=== PATIENT | male | born 1940 | race Caucasian/White ===

== ENCOUNTER 2016-12-13 23:17 | Inpatient (IN) | payer OTHER ==
[2016-12-13 23:33] VITALS: BMI 35.7
--- NOTE | 2016-12-13 23:51 | PDOC ---
History of Present Illness - General History Source: Family, Spouse () Exam Limitations: Dementia - History of Present Illness Initial Comments: 12/14/16 00:16 The patient is a 76 year old male with significant past medical history of dementia, CAD, hyperlipidemia, hypertension, chronic kidney disease, diabetes, asthma who presents to the ED BIBA from home with worsening AMS. As per family, at bedside, patient is confused and AMS at baseline. However, over the past 24 hours, they noted patients AMS has worsened. also noted frequent urination. According to the family, patient is administered tylenol every 4 hours for pain, but note that the patient felt warm at home. Patients temperature was checked here in the ED and patient was found to have a rectal temp of 100.2. Allergies: NKDA Social History: No alcohol, tobacco, or drug use reported. Past Surgical History: CABG, ORIF right hip PCP: Dr. Prema Fiore Cardio: Dr. Shanti Paul Nephro: Dr. Dee Dee Tavarez <Sharon Chávez - Last Filed: 12/14/16 04:34> <Lara Del Angel - Last Filed: 12/14/16 06:22> - General Chief Complaint: SIRS, Suspected/Possible Stated Complaint: FEVER Time Seen by Provider: 12/13/16 23:48 Past History <Sharon Chávez - Last Filed: 12/14/16 04:34> - Past Medical History Anemia: No Asthma: Yes Cancer: No Cardiac Disorders: Yes (cabg) CVA: No COPD: No CHF: No Dementia: No Diabetes: Yes GI Disorders: No Disorders: No HTN: Yes Hypercholesterolemia: Yes Liver Disease: No Suicide Attempt (Hx): No Seizures: No Thyroid Disease: No - Surgical History Abdominal Surgery: No Appendectomy: No Cardiac Surgery: Yes (') Cholecystectomy: No Lung Surgery: No Neurologic Surgery: No Orthopedic Surgery: No (rt hip orif) - Immunization History Immunization Up to Date: Yes - Psycho/Social/Smoking Cessation Hx Anxiety: No Suicidal Ideation: No Smoking Status: No Smoking History: Never smoked Have you smoked in the past 12 months: No Number of Cigarettes Smoked Daily: 0 If you are a former smoker, when did you quit?: '96 Hx Alcohol Use: No Drug/Substance Use Hx: No Substance Use Type: None Hx Substance Use Treatment: No <Lara Del Angel - Last Filed: 12/14/16 06:22> - Past Medical History Allergies/Adverse Reactions: Allergies Allergy/AdvReac Type Severity Reaction Status Date / Time No Known Allergies Allergy Verified 12/13/16 23:28 Home Medications: Ambulatory Orders Clopidogrel Bisulfate [Plavix -] 75 mg PO DAILY 02/26/12 Nebivolol HCl [Bystolic] 5 mg PO HS 06/23/14 Tamsulosin HCl 0.4 mg PO DAILY 06/23/14 Aspirin [ASA -] 81 mg PO DAILY 12/14/16 Atorvastatin Ca [Lipitor] 80 mg PO HS 12/14/16 Bimatoprost [Lumigan] 1 drop IO DAILY 12/14/16 Cyanocobalamin [Vitamin B12 -] 1,000 mcg PO DAILY 12/14/16 Dorzolamide HCl [Trusopt 2% -] 1 drop OU TID 12/14/16 Ezetimibe [Zetia] 10 mg PO DAILY 12/14/16 Furosemide [Lasix] 80 mg PO DAILY 12/14/16 Review of Systems - Review of Systems Able to Perform ROS?: No Comments:: 12/14/16 00:16 Unable to obtain as patient has dementia <Sharon Chávez - Last Filed: 12/14/16 04:34> *Physical Exam - Vital Signs Last Vital Signs Temp Pulse Resp BP Pulse Ox 98.1 F 85 18 135/65 92 L 12/13/16 23:28 12/13/16 23:28 12/13/16 23:28 12/13/16 23:28 12/13/16 23:28 - Physical Exam Comments: 12/14/16 01:51 GENERAL: Pt is febrile. Well developed, well nourished. No acute distress. HEENT: Normocephalic, atraumatic. PERRLA, EOMI. Right eye cloudy which is chronic per . No conjunctival pallor. Sclera are non-icteric. Moist mucous membranes. Oropharynx is clear. NECK: Supple. Full ROM. No JVD. Carotid pulses 2+ and symmetric, without bruits. No thyromegaly. No lymphadenopathy. CARDIOVASCULAR: Regular rate and rhythm. No murmurs, rubs, or gallops. Distal pulses are 2+ and symmetric. PULMONARY: No evidence of respiratory distress. Lungs clear to auscultation bilaterally. No wheezing, rales or rhonchi. ABDOMINAL: Obese. Non-tender. Non-distended. No rebound or guarding. No organomegaly. Normoactive bowel sounds. MUSCULOSKELETAL Normal range of motion at all joints. No bony deformities or tenderness. No CVA tenderness. EXTREMITIES: No cyanosis. No clubbing. No edema. No calf tenderness. SKIN: Warm and dry. Normal capillary refill. No rashes. No jaundice. NEUROLOGICAL: Confused and somnolent, but arousable. Unable to answer questions. Moving all extremities. PSYCHIATRIC: Cooperative. Good eye contact. Appropriate mood and affect. <Sharon Chávez - Last Filed: 12/14/16 04:34> - Vital Signs Last Vital Signs Temp Pulse Resp BP Pulse Ox 98.1 F 85 18 135/65 92 L 12/13/16 23:28 12/13/16 23:28 12/13/16 23:28 12/13/16 23:28 12/13/16 23:28 <Lara Del Angel - Last Filed: 12/14/16 06:22> Heart Score/ECG Review - ECG Impressions Comment:: 12/14/16 03:59 NSR @84bpm Nonspecific ST abnormality Abnormal ECG <Sharon Chávez - Last Filed: 12/14/16 04:34> ED Treatment Course - LABORATORY CBC & Chemistry Diagram: 12/14/16 00:01 12/14/16 03:40 - RADIOLOGY Radiograph Interpretation: 12/14/16 04:32 EXAM: X-RAY CHEST Reviewed by Imaging arson and bomb investigator: Exam slightly motion degraded and rotated since . No definite lung consolidation or pleural effusions. Cardiomegaly and/or pericardial effusion. Median sternotomy. <Sharon Chávez - Last Filed: 12/14/16 04:34> - LABORATORY CBC & Chemistry Diagram: 12/14/16 00:01 12/14/16 03:40 <Lara Del Angel - Last Filed: 12/14/16 06:22> Medical Decision Making - Medical Decision Making 12/14/16 01:33 Pt comes with worsening mental status. He also has a fever. Family takes care of him at home. Pt has a baseline dementia. 12/14/16 03:02 Pt's urine is clear. Only glucose and ketones. 12/14/16 06:17 Pt has no UTI on straight cath specimen even though his notes that he has been urinating frequently. Pt has RLL haziness on cxr. Pt will be treated with levaquin. He received tylenol ofirmev IV. We treated him with zosyn. 12/14/16 06:21 Pt was admitted to hospitalist and they hydrated him. <Lara Del Angel - Last Filed: 12/14/16 06:22> *DC/Admit/Observation/Transfer - Attestations Scribe Attestion: 12/14/16 00:16 Documentation prepared by Sharon Chávez, acting as medical claims processor for Lara Del Angel MD <Sharon Chávez - Last Filed: 12/14/16 04:34> - Discharge Dispostion Admit: Yes <Lara Del Angel - Last Filed: 12/14/16 06:22> Diagnosis at time of Disposition: Sepsis, Type 2 diabetes mellitus, Pneumonia - Referrals
[2016-12-14] MEDS ORDERED: ACETAMINOPHEN 1000 MG/100 ML VIAL (NON FORMULARY) IVPB ONE (00:03)
[2016-12-14 00:26] LABS: BASOPHIL 0.5 % (0-2.0); EOSINOPHIL 0.1 % (0-4.5); MCH 29.8 pg (25.7-33.7); MCHC 32.7 g/dl (32.0-35.9); MEAN CELL VOLUME 91.1 fl (80-96); MEAN PLT VOLUME 10.6 fl (7.5-11.1); NEUTROPHILS 83.2 % (42.8-82.8); PLATELET COUNT 102 K/MM3 (134-434); RDW 13.4 % (11.9-15.9); WHITE BLOOD COUNT 14.5 K/mm3 (4.0-10.0)
[2016-12-14 00:36] LABS: INR 1.44 (0.82-1.09)
[2016-12-14] MEDS ORDERED: ACETAMINOPHEN INJECTION 100 ML IVPB ONE (00:44)
[2016-12-14 01:10] LABS: ALBUMIN 3.9 g/dl (3.4-5.0); BILIRUBIN,TOTAL 0.8 mg/dL (0.2-1.0); CALCIUM 9.7 mg/dL (8.5-10.1); CREATININE 2.2 mg/dL (0.7-1.3); TOT PROT 6.9 g/dl (6.4-8.2)
[2016-12-14 01:12] LABS: TROPONIN I 0.04 ng/ml (0.00-0.05)
[2016-12-14] MEDS ORDERED: INSULIN REGULAR HUMAN 100 UNITS/ML *VIAL IVPUSH ONE (01:22)
[2016-12-14] MEDS ORDERED: PIPERACILLIN/TAZOB 3.375 GM 3.375 GM in DEXTROSE 5%-WATER - 50 ML IVPB ONE (01:28)
[2016-12-14] MEDS ORDERED: PIPERACILLIN/TAZOB 3.375 GM 50 ML IVPB ONE (01:43)
[2016-12-14] MEDS ORDERED: INSULIN REGULAR HUMAN 100 UNITS/ML *VIAL ONE ×3 (01:44→09:02)
[2016-12-14 02:43] LABS: URINE APPEARANCE CLEAR; URINE BILIRUBIN NEGATIVE (NEGATIVE); URINE BLOOD NEGATIVE (NEGATIVE); URINE COLOR STRAW; URINE GLUCOSE (UA) 3+ (NEGATIVE); URINE KETONE 1+ (NEGATIVE); URINE LEUK ESTERASE NEGATIVE (NEGATIVE); URINE NITRITE NEGATIVE (NEGATIVE); URINE PROTEIN NEGATIVE (NEGATIVE); URINE UROBILINOGEN NEGATIVE E.U./dl (0.2-1.0)
--- NOTE | 2016-12-14 02:47 | PN ---
<Escobar Cornell - Last Filed: 12/14/16 02:47> Teaching Attending Note Name of Resident: Chen Carrizales ATTENDING PHYSICIAN STATEMENT I saw and evaluated the patient. I reviewed the resident's note and discussed the case with the resident. I agree with the resident's findings and plan as documented. SUBJECTIVE: OBJECTIVE: ASSESSMENT AND PLAN: <Rick Sánchez - Last Filed: 12/14/16 04:42> Teaching Attending Note ATTENDING PHYSICIAN STATEMENT I saw and evaluated the patient. I reviewed the resident's note and discussed the case with the resident. I agree with the resident's findings and plan as documented. SUBJECTIVE: The patient is a 76 year old male with significant past medical history of dementia, CAD, hyperlipidemia, hypertension, chronic kidney disease, type 2 diabetes, and asthma who presents to the ED with worsening AMS. History obtained from family at bedside. As per the patient family, he is alert and oriented at baseline. The patients also notes a productive cough with white sputum for one week. The patient denies fever, chills, nausea, vomiting, chest pain, and shortness of breath. As per family, patient has received a flu shot. OBJECTIVE: Vital Signs: Last Vital Signs Temp Pulse Resp BP Pulse Ox 100.2 F H 85 18 135/65 92 L 12/14/16 00:50 12/13/16 23:28 12/13/16 23:28 12/13/16 23:28 12/13/16 23:28 Physical Exam: GEN: NAD. Elderly male A&O x1 HEENT: NCAT, PERRL CARD: RRR, S1 S2 RESP: Course bilateral crackles at bases of lungs ABD: NT, BWS x4 EXT: - Left upper arm insulin pump. Chronic venous stasis of bilateral lower extremities Labs: CBCD WBC 14.5 K/mm3 (4.0-10.0) H D 12/14/16 00:01 RBC 4.27 M/mm3 (4.00-5.60) D 12/14/16 00:01 Hgb 12.7 GM/dL (11.7-16.9) D 12/14/16 00:01 Hct 38.9 % (35.4-49) D 12/14/16 00:01 MCV 91.1 fl (80-96) 12/14/16 00:01 MCHC 32.7 g/dl (32.0-35.9) 12/14/16 00:01 RDW 13.4 % (11.9-15.9) 12/14/16 00:01 Plt Count 102 K/MM3 (134-434) L D 12/14/16 00:01 MPV 10.6 fl (7.5-11.1) D 12/14/16 00:01 CMP Sodium 136 mmol/L (136-145) 12/14/16 00:01 Potassium 4.7 mmol/L (3.5-5.1) 12/14/16 00:01 Chloride 94 mmol/L (98-107) L D 12/14/16 00:01 Carbon Dioxide 26 mmol/L (21-32) 12/14/16 00:01 Anion Gap 16 (8-16) 12/14/16 00:01 BUN 56 mg/dL (7-18) H D 12/14/16 00:01 Creatinine 2.2 mg/dL (0.7-1.3) H D 12/14/16 00:01 Creat Clearance w eGFR 29.25 (>60) 12/14/16 00:01 Calcium 9.7 mg/dL (8.5-10.1) 12/14/16 00:01 Total Bilirubin 0.8 mg/dL (0.2-1.0) D 12/14/16 00:01 AST 15 U/L (15-37) D 12/14/16 00:01 ALT 22 U/L (12-78) 12/14/16 00:01 Alkaline Phosphatase 134 U/L (45-117) H D 12/14/16 00:01 Total Protein 6.9 g/dl (6.4-8.2) 12/14/16 00:01 Albumin 3.9 g/dl (3.4-5.0) 12/14/16 00:01 Imaging: ASSESSMENT AND PLAN: Patient is a 76 year old male with significant past medical history of dementia , CAD, hyperlipidemia, hypertension, chronic kidney disease, type 2 diabetes, and asthma who presents to the ED with AMS and frequent urination being admitted for sepsis secondary to pneumonia. 1.Sepsis -Most likely secondary to community acquired pneumonia -Vancomycin and Zosyn received in ED -Repeat lactic acid -Foley culture -Stat flu swab -Dalton IVF -Sputum culture -Urine legionella/pneumococcal 2. Uncontrolled diabetes -s/p insulin regular received in ED -Continue with Levemir rapid acting -Finger sticks 3. Acute on chronic renal failure -Dalton hydration -Urine lytes -Base creatinine around 2 4. CHF -Continue home meds -Hold lasix as patient is dehydrated -Sputum culture 5. Thrombocytopenia -most likely due to infection 6. Asthma Not currently in exacerbation Nebulizer as needed 7. HTN Continue beta idris and flomax Admit to med surg. Documentation prepared by Rick Sánchez, acting as medical services assistant for Dr. Aneta MD.
--- NOTE | 2016-12-14 02:57 | HP ---
CHIEF COMPLAINT: Altered Mental Status PCP: Dr. Prema Fiore HISTORY OF PRESENT ILLNESS: Patient poor historian and unable to obtain history due to clinical condition. All information obtained from and records Patient is a 76 year old male with a significant PMHx of CAD, CHF, HLD, HTN, DM II (noncompliant and uncontrolled), CKD, asthma, and Dementia who was brought to the ED by his and son for worsening altered mental status for the last 2 -3 days. At baseline, patient is awake, alert, and oriented. She does report that he has worsening vision due to his uncontrolled diabetes, which worsened his gait in the last month. Patient's also reports a productive cough with white sputum for the last 2-3 days associated with fever and increasing urinary frequency. According to , she has been administering Tylenol every four hours for the fever. In the ED patient was found to have a rectal temperature of 100.2. However, she denies any chills, nausea, vomiting, chest pain, palpitations, shortness of breath. ER course was notable for: (1) Chest x-ray (2) Vancomycin and Zosyn (3) 10 Units of insulin Recent Travel: Denies PAST MEDICAL HISTORY: CAD, HLD, HTN, DM II (noncompliant and uncontrolled), CKD , asthma, and Dementia PAST SURGICAL HISTORY: CABG, ORIF of right hip Social History: Smoking: Denies Alcohol: Denies Drugs: Denies Family History: Denies Allergies: No Known Allergies Allergy (Verified 12/13/16 23:28) HOME MEDICATIONS: Medication Instructions Recorded Clopidogrel Bisulfate [Plavix -] 75 mg PO DAILY 02/26/12 Albuterol Sulfate Inhaler - 2 inh IH Q4H PRN #0 inh 02/29/12 [Ventolin HFA Inhaler -] Atorvastatin Ca [Lipitor] 40 mg PO HS #0 tab 02/29/12 Dorzolamide HCl [Trusopt 2% -] 1 drop OU BID #0 drops 02/29/12 Allopurinol [Zyloprim -] 100 mg PO DAILY 06/23/14 Docusate Sodium [Colace -] 300 mg PO BID 06/23/14 Nebivolol HCl [Bystolic] 5 mg PO HS 06/23/14 Spironolactone 50 mg PO DAILY 06/23/14 Tamsulosin HCl 0.4 mg PO DAILY 06/23/14 Albuterol 0.083% Nebulizer Elyse 1 neb NEB QID 09/29/15 [Ventolin 0.083% Nebulizer Soln -] Hydralazine HCl [Apresoline -] 10 mg PO TID tablet 03/17/16 Salmeterol/Fluticasone [Advair 1 puff IH BID #0 inhaler 03/17/16 100Mcg/50Mcg -] Albuterol Sulfate Inhaler - 2 inh IH Q4H PRN #1 inh 03/23/16 [Ventolin HFA Inhaler -] Hydralazine HCl [Apresoline -] 10 mg PO TID #90 tablet 03/23/16 Insulin Detemir [Levemir Flextouch] 22 unit SQ BID #5 syringe 03/23/16 Salmeterol/Fluticasone [Advair 1 puff IH BID #1 inhaler 03/23/16 100Mcg/50Mcg -] Wheel Chair 0 unit AD ASDIR #1 03/23/16 REVIEW OF SYSTEMS: Obtained from patient's CONSTITUTIONAL: Present: fever Absent: chills, diaphoresis, generalized weakness, malaise, loss of appetite, weight change HEENT: Present: rhinorrhea, nasal congestion, visual changes Absent: throat pain, throat swelling, difficulty swallowing, mouth swelling, ear pain, eye pain CARDIOVASCULAR: Absent: chest pain, syncope, palpitations, irregular heart rate, lightheadedness , peripheral edema RESPIRATORY: Present: cough Absent: shortness of breath, dyspnea with exertion, orthopnea, wheezing, stridor , hemoptysis GASTROINTESTINAL: Absent: abdominal pain, abdominal distension, nausea, vomiting, diarrhea, constipation, melena, hematochezia GENITOURINARY: Present: frequency Absent: dysuria, urgency, hesitancy, hematuria, flank pain, genital pain MUSCULOSKELETAL: Absent: myalgia, arthralgia, joint swelling, back pain, neck pain SKIN: Absent: rash, itching, pallor HEMATOLOGIC/IMMUNOLOGIC: Absent: easy bleeding, easy bruising, lymphadenopathy, frequent infections ENDOCRINE: Absent: unexplained weight gain, unexplained weight loss, heat intolerance, cold intolerance NEUROLOGIC: Present: mental status changes Absent: headache, focal weakness or paresthesias, dizziness, unsteady gait, seizure, bladder or bowel incontinence PSYCHIATRIC: Absent: anxiety, depression, suicidal or homicidal ideation, hallucinations. PHYSICAL EXAMINATION Vital Signs - 24 hr 12/13/16 12/14/16 23:28 00:50 Temperature 98.1 F 100.2 F H Pulse Rate 85 Respiratory 18 Rate Blood Pressure 135/65 O2 Sat by Pulse 92 L Oximetry (%) GENERAL: Awake, lethargic, disoriented HEAD: Normal with no signs of trauma. EYES: Sclera anicteric, bilateral conjunctivitis, No lid lag. EARS, NOSE, THROAT: Ears normal, nares patent, oropharynx clear without exudates. Moist mucous membranes. NECK: Normal range of motion, supple without lymphadenopathy, JVD, or masses. LUNGS: Bilateral crackles throughout lung bases No accessory muscle use. HEART: Regular rate and rhythm, normal S1 and S2 without murmur, rub or gallop. ABDOMEN: Soft, nontender, not distended, normoactive bowel sounds, no guarding, no rebound, no masses. No hepatomegaly or splenomegaly. MUSCULOSKELETAL: Normal range of motion at all joints. No bony deformities or tenderness. No CVA tenderness. UPPER EXTREMITIES: Left upper arm insulin pump No peripheral edema. LOWER EXTREMITIES: Chronic venous stasis of bilateral lower extremities. No peripheral edema. NEUROLOGICAL: Disoriented and Agitated Laboratory Results - last 24 hr 12/14/16 12/14/16 12/14/16 00:01 00:01 00:01 WBC 14.5 H D RBC 4.27 D Hgb 12.7 D Hct 38.9 D MCV 91.1 MCHC 32.7 RDW 13.4 Plt Count 102 L D MPV 10.6 D Neutrophils % 83.2 H D Lymphocytes % 4.8 L D Monocytes % 11.4 H Eosinophils % 0.1 D Basophils % 0.5 D INR 1.44 H Sodium 136 Potassium 4.7 Chloride 94 L D Carbon Dioxide 26 Anion Gap 16 BUN 56 H D Creatinine 2.2 H D Creat Clearance w eGFR 29.25 Random Glucose 595 H* D Lactic Acid Calcium 9.7 Total Bilirubin 0.8 D AST 15 D ALT 22 Alkaline Phosphatase 134 H D Creatine Kinase 128 Troponin I 0.04 D Total Protein 6.9 Albumin 3.9 Urine Color Urine Appearance Urine pH Ur Specific [place] Urine Protein Urine Glucose (UA) Urine Ketones Urine Blood Urine Nitrite Urine Bilirubin Urine Urobilinogen Ur Leukocyte Esterase 12/14/16 12/14/16 00:01 02:35 WBC RBC Hgb Hct MCV MCHC RDW Plt Count MPV Neutrophils % Lymphocytes % Monocytes % Eosinophils % Basophils % INR Sodium Potassium Chloride Carbon Dioxide Anion Gap BUN Creatinine Creat Clearance w eGFR Random Glucose Lactic Acid 2.606 H* Calcium Total Bilirubin AST ALT Alkaline Phosphatase Creatine Kinase Troponin I Total Protein Albumin Urine Color Straw Urine Appearance Clear Urine pH 5.0 Ur Specific [place] 1.016 Urine Protein Negative Urine Glucose (UA) 3+ H Urine Ketones 1+ H Urine Blood Negative Urine Nitrite Negative Urine Bilirubin Negative Urine Urobilinogen Negative Ur Leukocyte Esterase Negative ASSESSMENT/PLAN: Patient is a 76 year old male with a PMHx of CAD, CHF, HLD, HTN, DM II ( noncompliant and uncontrolled), CKD, asthma, BPH and Dementia who presents to the ED for altered mental status that worsened in the last two days associated with a productive cough, fever, and urinary frequency. Patient admitted for further monitoring and management. Sepsis Likely Secondary to Community Acquired Pneumonia -Chest X-ray ordered that revealed a possible right lobe infiltrate -Repeat Lactic sent -Zosyn and Vancomycin given -Blood and urine cultures ordered -Sputum cultures sent -Urine Legionella/pneumococcal ordered -Flu Swab ordered -IV Tylenol 1000mg ordered -Light hydration with IV NS half bolus -Duo-Neb ordered -Speech and Swallow consult placed Hyperglycemia -Likely from uncontrolled DM II -Glucose >500 -Anion Gap 16. Will repeat -10 units of regular insulin given in ED -Insulin Sliding scale -BGM Q4H -Repeat BMP sent to monitor Anion Gap -Continue to Trend BMP KIKI on CKD -Creatinine 2.2 -IV NS half a bolus -Urine electrolytes ordered -Continue to trend BMP Thrombocytopenia -Likely from current infection -Continue to trend CBC daily CHF -No acute exacerbation -Will hold Lasix due to patients creatinine -Continue Aspirin 81mg -Continue Plavix 75mg HTN -Continue Bystolic 5mg daily -Continue to monitor BP HLD -Continue Zetia 10mg -Continue Lipitor 80mg Asthma -Currently has no exacerbation -DuoNeb 1 amp ordered BPH -Continue Tamsulosin 0.4mg F/E/N -IVF with NS half bolus given -Hyperglycemia -NPO until speech and swallow evaluation Prophylaxis -SCD's for DVT -No GI prophylaxis Disposition -Full code -Will remain inpatient overnight. Visit type - Emergency Visit Emergency Visit: Yes ED Registration Date: 12/14/16 Care time: The patient presented to the Emergency Department on the above date and was hospitalized for further evaluation of their emergent condition. - New Patient This patient is new to me today: Yes Date on this admission: 12/15/16 - Critical Care Critical Care patient: No
[2016-12-14] MEDS ORDERED: SODIUM CHLORIDE 500 ML IV STA (03:11)
[2016-12-14] MEDS ORDERED: ACETAMINOPHEN 325 MG TABLET (FP) PO PRN (03:28)
[2016-12-14] MEDS ORDERED: ALBUTEROL SO4 2.5/IPRATROPIUM 0.5 INH SOL 3 ML VIAL.NEB. NEB ONE ×2 (03:41→03:54)
[2016-12-14 04:10] LABS: CALCIUM 9.6 mg/dL (8.5-10.1); CREATININE 2.3 mg/dL (0.7-1.3)
[2016-12-14] MEDS ORDERED: INSULIN (NOVOLOG) ASPART 100 UNITS/ML 10ML VIAL SQ ONE (04:27)
[2016-12-14] MEDS: DORZOLAMIDE 2% HCL OPHTHALMIC SOLUTION 10 ML BOTTLE OU SCH ×3 (06:18→22:16)
[2016-12-14] MEDS ORDERED: INSULIN SLIDING SCALE (NOVOLOG) 1 VIAL SQ SCH (07:00)
[2016-12-14 07:44] LABS: BASOPHIL 0.4 % (0-2.0); MCH 30.5 pg (25.7-33.7); MCHC 33.4 g/dl (32.0-35.9); MEAN CELL VOLUME 91.4 fl (80-96); MEAN PLT VOLUME 10.7 fl (7.5-11.1); NEUTROPHILS 83.2 % (42.8-82.8); PLATELET COUNT 91 K/MM3 (134-434); RDW 13.5 % (11.9-15.9); WHITE BLOOD COUNT 15.5 K/mm3 (4.0-10.0)
[2016-12-14 08:08] LABS: CALCIUM 9.9 mg/dL (8.5-10.1)
[2016-12-14 08:11] LABS: BILIRUBIN,TOTAL 0.8 mg/dL (0.2-1.0); CREATININE 2.1 mg/dL (0.7-1.3); TOT PROT 7.1 g/dl (6.4-8.2)
[2016-12-14] MEDS ORDERED: AZITHROMYCIN IVPB 500 MG in DEXTROSE 5%-WATER - 250 ML IVPB ONE (08:22)
[2016-12-14] MEDS ORDERED: ALBUTEROL SO4 0.083% IH SOL 2.5 MG/3 ML VIAL.NEB. NEB PRN (08:23)
[2016-12-14] MEDS: INSULIN SLIDING SCALE (NOVOLOG) 1 VIAL SQ SCH ×5 (08:59→22:02)
[2016-12-14] MEDS ORDERED: TAMSULOSIN HCL 0.4 MG CAP.ER.24H (FP) ONE (09:01)
[2016-12-14] MEDS ORDERED: AZITHROMYCIN IVPB 250 ML IVPB ONE (09:01)
[2016-12-14] MEDS: TAMSULOSIN HCL 0.4 MG CAP.ER.24H (FP) PO SCH (09:04)
[2016-12-14] MEDS: SODIUM CHLORIDE 1,000 ML IV SCH ×2 (09:04→17:18)
--- NOTE | 2016-12-14 09:46 | CONSULT ---
Admitting History and Physical - Primary Care Physician PCP: Pako Alex - Admission History of Present Illness: Per EMR: "Patient poor historian and unable to obtain history due to clinical condition. All information obtained from and records Patient is a 76 year old male with a significant PMHx of CAD, CHF, HLD, HTN, DM II (noncompliant and uncontrolled), CKD, asthma, and Dementia who was brought to the ED by his and son for worsening altered mental status for the last 2 -3 days. At baseline, patient is awake, alert, and oriented. She does report that he has worsening vision due to his uncontrolled diabetes, which worsened his gait in the last month. Patient's also reports a productive cough with white sputum for the last 2-3 days associated with fever and increasing urinary frequency. According to , she has been administering Tylenol every four hours for the fever. In the ED patient was found to have a rectal temperature of 100.2. However, she denies any chills, nausea, vomiting, chest pain, palpitations, shortness of breath. ER course was notable for: (1) Chest x-ray (2) Vancomycin and Zosyn (3) 10 Units of insulin " Snoring sounds while sleeping and when alert and reclined. Frequent cough. History Source: Significant Other (limited.), Medical Record Limitations to Obtaining History: Clinical Condition, Language Barrier - Past Medical History Cardiovascular: Yes: CAD, HTN, Hyperlipdemia Pulmonary: Yes: Asthma, COPD - Past Surgical History Past Surgical History: Yes: CABG - Smoking History Smoking history: Never smoked Have you smoked in the past 12 months: No Aproximately how many cigarettes per day: 0 If you are a former smoker, when did you quit?: '96 - Alcohol/Substance Use Hx Alcohol Use: No - Social History History of Recent Travel: No History - Admission Reason For Visit: SEPSIS PNEUMONIA TYPE 2 DIABETES MELLITUS - Diagnostics X-ray: Report Reviewed - General Mental Status: Awake and Alert, Able to Follow Commands, Intermittently Confused (difficult to assess due to language barrier and limited ability of pt' s to translate/assist.) Attention: Distractible (eyes closed throughout assessment) Ability to Follow Directions: Fair - Hearing Hearing: Functional Speech Evaluation - Communication Primary Language: ROLO Communication: Yes: Simple Responses - Speech Characteristics Voice Loudness: Normal Voice Pitch: Yes: Normal Voice Phonatory-based Quality: Yes: Dysphonia - Swallow Evaluation/Bedside Assessment Current Nutritional Intake: NPO Dentition: Yes: Missing Teeth Facial Symmetry at Rest: Facial Droop Right (possibly at rest? Limited cooperation with examination) Lingual Movement: Symmetric Labial Seal: WFL Oral Prep Time: WFL A-P Transit: WFL Pocketing: None Coughing/Throat Clear: No Change in Voice: No Recommendations - Speech Evaluation, Impression/Plan Impression: Eyes closed/language barrier/coughing throughout assessment. Swallow seems brisk. - Dysphagia Impressions/Plan Dysphagia Impressions: Ongoing Evaluation *Silent aspiration: cannot be R/O at bedside Dysphagia Treatment Plan: Chin Tuck/Down, Safe Rate, 1/2 tsp. at a time, Elevate HOB during feed Recommendations: Modified Barium Swallow (if aspiration is suspected, once pt is less congested), Other (NPO if coughing noted during PO intake, or if CXR worsens.) - Recommendations Diet Consistency: Dysphagia Pureed Medication Administration: Crushed with applesauce Liquids: Vina Thick
--- NOTE | 2016-12-14 10:30 | EKG ---
Test Reason : Blood Pressure : / mmHG Vent. Rate : 084 BPM Atrial Rate : 084 BPM P-R Int : 170 ms QRS Dur : 096 ms QT Int : 396 ms P-R-T Axes : 049 054 065 degrees QTc Int : 467 ms NORMAL SINUS RHYTHM NONSPECIFIC ST ABNORMALITY ABNORMAL ECG WHEN COMPARED WITH ECG OF 11-MAR-2016 07:13, SINUS RHYTHM HAS REPLACED JUNCTIONAL RHYTHM Confirmed by IDALMIS WELDON, ADIN ([id number]) on 12/14/2016 10:30:10 AM Referred By: Confirmed By:ADIN RAYGOZA MD
--- NOTE | 2016-12-14 10:37 | PN ---
<Pako Alex - Last Filed: 12/14/16 10:45> Physical Exam: ATTENDING PHYSICIAN STATEMENT I saw and evaluated the patient. I reviewed the resident's note and discussed the case with the resident. I agree with the resident's findings and plan as documented. SUBJECTIVE: seen and evaluated at the bedside OBJECTIVE: as per family pt is not yet at his baseline mental status ASSESSMENT AND PLAN: 6 year old male with a significant PMHx of CAD, CHF, HLD, HTN, DM II ( noncompliant and uncontrolled), CKD, asthma, and Dementia admitted for sepsis due to community acquired pneumonia causing metabolic encephalopathy Pneumonia -currently afebrile and hemodynamically stable -was given single doses of abx overnight -start ceftriaxone and azithromycin -lactate was still elevated; start IVF and trend lactic acid -follow up blood/urine cultures Hyperglycemia -no anion gap -sliding scale insulin -await swallow eval before starting standing levemir (would require half the usual dose if not able to eat) Acute kidney injury -due to hypoperfusion secondary to sepsis -start IVF -trend creat <Felisha Romero - Last Filed: 12/14/16 13:57> Physical Exam: SUBJECTIVE: Patient seen and examined Patient resting in bed, in mild distress. Fever 100.2, hemodynamically stable. O2 sat 100% on 2L NC. awake and alert but disoriented and mumbling incoherently. Follows some commands with prompting. History obtained from and record. She states that he is still well below mental status baseline, which is aao x 3. She states that his current issues include urinary incontinence, confusion, cough with clear sputum and fever x1-2 days. she denies him complaining of h/a, n/v, chest pain, sob, abd pain, diarrhea or dysuria. OBJECTIVE: Vital Signs Period Temp Pulse Resp BP Sys/Poole Pulse Ox Last 24 Hr 78 18 122/71 100 GENERAL: Awake, somewhat responsive to verbal command, lethargic, disoriented HEAD: Normal with no signs of trauma. EYES: Sclera anicteric and mildly injected b/l PERRLA EARS, NOSE, THROAT: oropharynx clear without exudates. Moist mucous membranes. NECK: supple without lymphadenopathy, JVD, or masses. LUNGS: bibasilar crackles. diffusely coarse breath sounds HEART: Regular rate and rhythm, normal S1 and S2 ABDOMEN: Soft, not distended, normoactive bowel sounds, no guarding. mild suprapubic tenderness MUSCULOSKELETAL: No CVA tenderness. UPPER EXTREMITIES: 2+ pulses, warm, well perfused, No peripheral edema. LOWER EXTREMITIES: venous stasis discoloration of b/l ankles, trace b/l edema NEUROLOGICAL: Disoriented, lethargic Laboratory Results - last 24 hr 12/14/16 12/14/16 12/14/16 05:00 06:15 06:15 WBC 15.5 H RBC 4.18 Hgb 12.7 Hct 38.2 MCV 91.4 MCHC 33.4 RDW 13.5 Plt Count 91 L MPV 10.7 Neutrophils % 83.2 H Lymphocytes % 5.1 L Monocytes % 11.3 H Eosinophils % 0.0 D Basophils % 0.4 Sodium 138 Potassium 4.2 Chloride 99 Carbon Dioxide 27 Anion Gap 12 BUN 49 H Creatinine 2.1 H Creat Clearance w eGFR 30.86 Random Glucose 480 H* Lactic Acid 2.793 H* Calcium 9.9 Total Bilirubin 0.8 AST 27 D ALT 25 Alkaline Phosphatase 136 H Total Protein 7.1 Albumin 4.0 Active Medications Generic Name Dose Route Start Last Admin Trade Name Freq PRN Reason Stop Dose Admin Albuterol Sulfate 1 amp 12/14/16 08:23 Ventolin 0.083% Nebulizer Soln - NEB Q4H PRN SHORT OF BREATH/WHEEZING Aspirin 81 mg 12/14/16 10:00 Asa - PO DAILY [facility] Atorvastatin Calcium 80 mg 12/14/16 22:00 Lipitor - PO HS [facility] Clopidogrel Bisulfate 75 mg 12/14/16 10:00 Plavix - PO DAILY [facility] Dorzolamide HCl 1 drop 12/14/16 06:00 12/14/16 06:18 Trusopt 2% OU Not Given TID DAISHA Ezetimibe 10 mg 12/14/16 10:00 Zetia - PO DAILY [facility] Azithromycin 250 mg/ Dextrose 250 mls @ 250 mls/hr 12/15/16 10:00 IVPB DAILY [facility] Ceftriaxone Sodium 100 mls @ 200 mls/hr 12/14/16 10:00 Rocephin 2gm Ivpb (Pre-Docked) IVPB DAILY [facility] Sodium Chloride 1,000 mls @ 125 mls/hr 12/14/16 08:45 12/14/16 09:04 Normal Saline - IV 125 mls/hr ASDIR DAIS[facility] Administration Insulin Aspart 1 vial 12/14/16 06:00 12/14/16 08:59 Novolog Vial Sliding Scale - SQ 10 units Q4HPO DAISHA Administration Protocol Latanoprost 1 drop 12/14/16 10:00 Xalatan 0.005% Eye Drops - OU DAILY [facility] Nebivolol 5 mg 12/14/16 22:00 Bystolic - PO HS [facility]ISHA Tamsulosin HCl 0.4 mg 12/14/16 08:30 12/14/16 09:04 Flomax - PO Not Given DAILY@0830 [facility] ASSESSMENT/PLAN: This is a 76 yo M with PMH of CAD, CHF, HLD, HTN, uncontrolled IDDM II, CKD, asthma, BPH and Dementia who is admitted due to CAP: altered mental status, productive cough, fever, urinary frequency/incontinence, hyperglycemia x 3d. Altered mental status due to Sepsis -jaswinder source: RLL Community Acquired Pneumonia -CXR: RLL infiltrate -lactic acidosis resolved -s/p Zosyn in ED, now on Azithro and Rocephin -Blood and urine cultures p/d -Sputum cultures p/d -Urine Legionella/pneumococcal -Flu negative -febrile -Tylenol PO PRN -NS @ 125 -albuterol nebs prn -Speech and Swallow consult: pureed diet Hyperglycemia in setting of uncontrolled IDDM -medication noncompliant -Glucose >500 on admission -s/p 20 u insulin in ED; gluc over 400 -Insulin Sliding scale -start basal insulin once tolerates meal, at a gentle dose Levemir 18 HS and Novolog 8 bid -fingerstick TID AC -BG goal 250 to avoid hypoglycemia -A1C Diabetic retinopathy -severe -f/u opthalmology outpatient KIKI vs CKD -likely due to dehydration in setting of uncontrolled DM -Creatinine 2.1 trending down from 2.3 -IV hydration -Urine electrolytes p/d -trend creat Thrombocytopenia -Likely associated with PNA -trend CBC CHF -no sign of acute failure at this time -hold Lasix in setting of KIKI -Continue Asa, Plavix HTN -Continue Bystolic HLD -Continue Zetia, Lipitor Asthma -stable -nebs prn BPH -Tamsulosin FEN NS @ 125 lytes stable DVT GI PPX: SCD, diet Dysphagia Pureed, diabetic diet nectar liquids Dispo: monitor in med benjamin Problem List - Problems (1) Acute renal failure Code(s): N17.9 - ACUTE KIDNEY FAILURE, UNSPECIFIED (2) Dehydration Code(s): E86.0 - DEHYDRATION (3) Pneumonia Code(s): J18.9 - PNEUMONIA, UNSPECIFIED ORGANISM (4) Sepsis Code(s): A41.9 - SEPSIS, UNSPECIFIED ORGANISM (5) Weakness Code(s): R53.1 - WEAKNESS (6) Asthma Code(s): J45.909 - UNSPECIFIED ASTHMA, UNCOMPLICATED (7) CAD (coronary artery disease) Code(s): I25.10 - ATHSCL HEART DISEASE OF [place] CORONARY ARTERY W/O ANG PCTRS (8) CKD stage 3 due to type 2 diabetes mellitus Code(s): E11.22 - TYPE 2 DIABETES MELLITUS W DIABETIC CHRONIC KIDNEY DISEASE N18.3 - CHRONIC KIDNEY DISEASE, STAGE 3 (MODERATE) (9) Hyperlipidemia Code(s): E78.5 - HYPERLIPIDEMIA, UNSPECIFIED (10) Hypertension Code(s): I10 - ESSENTIAL (PRIMARY) HYPERTENSION (11) Obesity (BMI 30-39.9) Code(s): E66.9 - OBESITY, UNSPECIFIED (12) Type 2 diabetes mellitus Code(s): E11.9 - TYPE 2 DIABETES MELLITUS WITHOUT COMPLICATIONS (13) Community acquired pneumonia Code(s): J18.9 - PNEUMONIA, UNSPECIFIED ORGANISM Visit type - Emergency Visit Emergency Visit: Yes ED Registration Date: 12/14/16 Care time: The patient presented to the Emergency Department on the above date and was hospitalized for further evaluation of their emergent condition. - New Patient This patient is new to me today: Yes Date on this admission: 12/14/16 - Critical Care Critical Care patient: No - Discharge Referral Referred to [facility] Med P.C.: No
[2016-12-14] MEDS ORDERED: CEFTRIAXONE 100 ML IVPB ONE (11:00)
[2016-12-14] MEDS: CEFTRIAXONE 100 ML IVPB SCH (11:01)
--- NOTE | 2016-12-14 11:04 | MSN ---
Progress Note (SOAP) - Subjective History of Present Illness: Jerel reynolds is a 76 y/o male with a pmh of CAD, CHF, HTN, uncontrolled DM , CKD, asthma, and dementia who was brought in by his and son on 12/13 for a 2 day history of altered mental status and productive cough. The pt is a poor historian, especially at this time, so history was taken from and records. His cough has been productive of white sputum at home and the states he has been feverish but has been suppressed with tylenol every 4 hours. He also has had increased urinary frequency in the last day and is now incontinent. The pts states that he is typically alert and oriented x3 but his gait and vision has decreased of late, likely due to his uncontrolled diabetes. This morning, he is disoriented but responds to his name and to some questions but is not clear in his responses. He gurgles at time and speaks a mixture of languages. He doesn't complain of any pain at this time but is thirsty. He denies any sob, f/c, n/v, h/a, chest pain, dizziness, weakness, or dysuria. - Current Medications Current Medications: Active Medications Albuterol Sulfate (Ventolin 0.083% Nebulizer Soln -) 1 amp NEB Q4H PRN PRN Reason: SHORT OF BREATH/WHEEZING Aspirin (Asa -) 81 mg PO DAILY [facility] Atorvastatin Calcium (Lipitor -) 80 mg PO HS [facility] Clopidogrel Bisulfate (Plavix -) 75 mg PO DAILY [facility] Dorzolamide HCl (Trusopt 2%) 1 drop OU TID [facility] Last Admin: 12/14/16 06:18 Dose: Not Given Ezetimibe (Zetia -) 10 mg PO DAILY [facility] Azithromycin 250 mg/ Dextrose 250 mls @ 250 mls/hr IVPB DAILY [facility] Ceftriaxone Sodium (Rocephin 2gm Ivpb (Pre-Docked)) 100 mls @ 200 mls/hr IVPB DAILY [facility] Sodium Chloride (Normal Saline -) 1,000 mls @ 125 mls/hr IV ASDIR [facility] Last Admin: 12/14/16 09:04 Dose: 125 mls/hr Insulin Aspart (Novolog Vial Sliding Scale -) 1 vial SQ Q4HPO DAISHA PRN Reason: Protocol Last Admin: 01/18/17 08:59 Dose: 10 units Latanoprost (Xalatan 0.005% Eye Drops -) 1 drop OU DAILY [facility] Nebivolol (Bystolic -) 5 mg PO HS [facility] Tamsulosin HCl (Flomax -) 0.4 mg PO DAILY@0830 [facility] Last Admin: 12/14/16 09:04 Dose: Not Given - Objective Vital Signs: Vital Signs Temperature 100.2 F H 12/14/16 00:50 Pulse Rate 78 12/14/16 07:53 Respiratory Rate 18 12/14/16 07:53 Blood Pressure 122/71 12/14/16 07:53 O2 Sat by Pulse Oximetry (%) 100 12/14/16 07:53 Constitutional: Yes: Moderate Distress (agitated in the er bed) Eyes: Yes: Conjunctiva Clear, EOM Intact HENT: Yes: Nasal Congestion Neck: Yes: WNL (no lymphadenopathy) Cardiovascular: Yes: Regular Rate and Rhythm, S1, S2 Respiratory: Yes: CTA Bilaterally (coarse breath sounds on the right, some bibasilar crackles), Cough (productive of white sputum) Gastrointestinal: Yes: Normal Bowel Sounds, Soft, Abdomen, Obese Genitourinary: Yes: Other (some suprapubic tenderness) Extremities: Yes: Other (bilateral venous stasis in LE) Peripheral Pulses WNL: Yes Neurological: Yes: Alert (oriented and responsive to name and questions, but disoriented ), Confusion, Cran Nerves II-XII Intact Labs Lab Results: CBC, BMP 12/14/16 06:15 12/14/16 06:15 Imaging - Results Chest X-ray: Report Reviewed, Image Reviewed (possible right lower lobe infioltrate) Assessment/Plan Sepsis 2/2 to CAP -elevated white count of 15.5, productive cough, and possible right lower lobe infiltrate on cxr -lactic acid trending up to 2.793 -has been afebrile with a Tmax of 100.2 but has been given acetominophen at home q4h -Given Zosyn in the ED, started on azithro and rocephin -Urine Legionella and pneumococcal Influenza was negative -Speech and swallow ordered due to gurgline and coughing -F/u cbc and lactic acid Hyperglycemia -glucose elevated above 500 on arrival -urine glucose 3+, 1+ ketone -ISS given 20 units in ED -Home elvemir held for now KIKI -Cr of 2.3 -baseline on previous admissions has been in 1.5 range -light iv hydration -diuretic held
[2016-12-14] MEDS: LATANOPROST 0.005% OPHTH SOLN 2.5ML BOTTLE OU SCH (11:20)
[2016-12-14] MEDS: ASPIRIN 81 MG CHEWABLE TABLETS PO SCH (11:20)
[2016-12-14] MEDS: CLOPIDOGREL BISULFATE 75 MG TABLET (FP) PO SCH (11:20)
[2016-12-14] MEDS: EZETIMIBE 10 MG TABLET (FP) PO SCH (11:21)
[2016-12-14] MEDS ORDERED: ACETAMINOPHEN 325 MG TABLET (FP) ONE (12:37)
[2016-12-14] MEDS: ACETAMINOPHEN 325 MG TABLET (FP) PO PRN (13:21)
[2016-12-14] MEDS ORDERED: INSULIN (NOVOLOG) ASPART 100 UNITS/ML 10ML VIAL ONE (16:08)
[2016-12-14] MEDS: Insulin (LOG) Aspart 100 UNITS/ML VIAL SQ SCH (18:46)
[2016-12-14] MEDS: ATORVASTATIN CA 80 MG TABLET (FP) PO SCH (22:01)
[2016-12-14] MEDS: INSULIN DETEMIR 100 UNITS/ML MDV SQ SCH (22:01)
[2016-12-14] MEDS: NEBIVOLOL 5 MG TABLET (FP) PO SCH (22:01)
[2016-12-15] MEDS: INSULIN SLIDING SCALE (NOVOLOG) 1 VIAL SQ SCH ×7 (02:02→22:50)
[2016-12-15] MEDS: SODIUM CHLORIDE 1,000 ML IV SCH (02:02)
[2016-12-15] MEDS: DORZOLAMIDE 2% HCL OPHTHALMIC SOLUTION 10 ML BOTTLE OU SCH ×2 (06:19→21:05)
[2016-12-15] MEDS: Insulin (LOG) Aspart 100 UNITS/ML VIAL SQ SCH ×2 (06:20→18:37)
[2016-12-15 08:41] LABS: MCH 30.6 pg (25.7-33.7); MCHC 33.4 g/dl (32.0-35.9); MEAN CELL VOLUME 91.5 fl (80-96); MEAN PLT VOLUME 10.1 fl (7.5-11.1); PLATELET COUNT 92 K/MM3 (134-434); RDW 13.4 % (11.9-15.9)
[2016-12-15 09:06] LABS: CALCIUM 9.3 mg/dL (8.5-10.1); CREATININE 1.4 mg/dL (0.7-1.3); MAGNESIUM 2.8 mg/dL (1.8-2.4); PHOSPHOROUS 1.5 mg/dL (2.5-4.9)
[2016-12-15] MEDS: EZETIMIBE 10 MG TABLET (FP) PO SCH (09:53)
[2016-12-15] MEDS: CLOPIDOGREL BISULFATE 75 MG TABLET (FP) PO SCH (09:53)
[2016-12-15] MEDS: ASPIRIN 81 MG CHEWABLE TABLETS PO SCH (09:53)
[2016-12-15] MEDS: TAMSULOSIN HCL 0.4 MG CAP.ER.24H (FP) PO SCH (09:53)
[2016-12-15] MEDS: CEFTRIAXONE 100 ML IVPB SCH (09:53)
[2016-12-15] MEDS: AZITHROMYCIN IVPB 250 MG in DEXTROSE 5%-WATER - 250 ML IVPB SCH (10:00)
[2016-12-15] MEDS ORDERED: SODIUM CHLORIDE 1,000 ML IV SCH (10:24)
--- NOTE | 2016-12-15 10:28 | PN ---
<Felisha Romero - Last Filed: 12/15/16 12:22> Physical Exam: SUBJECTIVE: Patient seen and examined Patient resting in bed, in mild distress. Afebrile and hemodynamically stable. O2 sat 98% on 2L NC. awake and alert, responsive, improved mental status from yesterday. states he is still below baseline. He still feels weak, howeer states that he feels better, has less cough, no pain and improved breathing. Nurse states that his lungs initially soudned better overnight but began sto sound worse again this morning, possibly due to fluids. He deneis pelvic pain. He denies h/a, n/v, chest pain, sob, abd pain, diarrhea or dysuria. OBJECTIVE: Vital Signs Period Temp Pulse Resp BP Sys/Poole Pulse Ox Last 24 Hr 97.8 F-101.2 F 69-73 20-20 122-137/55-88 96-100 GENERAL: Awake, alert oriented but below baseline HEAD: Normal with no signs of trauma. EYES: Sclera anicteric and mildly injected b/l PERRLA EARS, NOSE, THROAT: oropharynx clear without exudates. Moist mucous membranes. NECK: supple without lymphadenopathy, JVD, or masses. LUNGS: bibasilar crackles. diffusely coarse breath sounds unimproved from yesterday. HEART: Regular rate and rhythm, normal S1 and S2 ABDOMEN: Soft, not distended, normoactive bowel sounds, no guarding. No suprapubic tenderness MUSCULOSKELETAL: No CVA tenderness. UPPER EXTREMITIES: 2+ pulses, warm, well perfused, No peripheral edema. LOWER EXTREMITIES: venous stasis discoloration of b/l ankles, trace b/l edema NEUROLOGICAL: weak but more alert Laboratory Results - last 24 hr 12/14/16 12/14/16 12/14/16 06:16 11:40 12:00 WBC RBC Hgb Hct MCV MCHC RDW Plt Count MPV Sodium Potassium Chloride Carbon Dioxide Anion Gap BUN Creatinine POC Glucometer > [phone] Random Glucose Hemoglobin A1c % Lactic Acid 1.664 Calcium Phosphorus Magnesium 12/14/16 12/14/16 12/14/16 16:05 17:45 21:58 WBC RBC Hgb Hct MCV MCHC RDW Plt Count MPV Sodium Potassium Chloride Carbon Dioxide Anion Gap BUN Creatinine POC Glucometer 355 350 233 Random Glucose Hemoglobin A1c % Lactic Acid Calcium Phosphorus Magnesium 12/15/16 12/15/16 12/15/16 02:01 06:00 06:18 WBC RBC Hgb Hct MCV MCHC RDW Plt Count MPV Sodium Potassium Chloride Carbon Dioxide Anion Gap BUN Creatinine POC Glucometer 140 208 Random Glucose Hemoglobin A1c % 5.1 D Lactic Acid Calcium Phosphorus Magnesium 12/15/16 12/15/16 08:05 08:05 WBC 13.0 H RBC 4.18 Hgb 12.8 Hct 38.3 MCV 91.5 MCHC 33.4 RDW 13.4 Plt Count 92 L MPV 10.1 Sodium 151 H Potassium 4.1 Chloride 114 H D Carbon Dioxide 30 Anion Gap 7 L BUN 30 H D Creatinine 1.4 H D POC Glucometer Random Glucose 146 H D Hemoglobin A1c % Lactic Acid Calcium 9.3 Phosphorus 1.5 L D Magnesium 2.8 H Active Medications Generic Name Dose Route Start Last Admin Trade Name Freq PRN Reason Stop Dose Admin Acetaminophen 650 mg 12/14/16 13:15 12/14/16 13:21 Tylenol - PO 650 mg Q4H PRN Administration FEVER OR PAIN Albuterol/Ipratropium 1 amp 12/15/16 10:30 Duoneb - NEB Q4H [facility] Aspirin 81 mg 12/14/16 10:00 12/15/16 09:53 Asa - PO 81 mg DAILY [facility] Administration Atorvastatin Calcium 80 mg 12/14/16 22:00 12/14/16 22:01 Lipitor - PO 80 mg HS NEHA Administration Clopidogrel Bisulfate 75 mg 12/14/16 10:00 12/15/16 09:53 Plavix - PO 75 mg DAILY [facility] Administration Dorzolamide HCl 1 drop 12/14/16 06:00 12/15/16 06:19 Trusopt 2% OU 1 drop TID [facility] Administration Ezetimibe 10 mg 12/14/16 10:00 12/15/16 09:53 Zetia - PO 10 mg DAILY [facility] Administration Azithromycin 250 mg/ Dextrose 250 mls @ 250 mls/hr 12/15/16 10:00 IVPB DAILY [facility] Ceftriaxone Sodium 100 mls @ 200 mls/hr 12/14/16 10:00 12/15/16 09:53 Rocephin 2gm Ivpb (Pre-Docked) IVPB 200 mls/hr DAILY [facility] Administration Sodium Chloride 1,000 mls @ 50 mls/hr 12/15/16 10:24 Normal Saline - IV ASDIR [facility] Insulin Aspart 1 vial 12/14/16 06:00 12/15/16 06:20 Novolog Vial Sliding Scale - SQ 4 units Q4HPO NEHA Administration Protocol Insulin Aspart 8 units 12/14/16 16:30 12/15/16 06:20 Novolog SQ 8 units BID@0700,1630 NE[facility] Administration Insulin Detemir 18 units 12/14/16 22:00 12/14/16 22:01 Levemir Vial SQ 18 units HS [facility] Administration Latanoprost 1 drop 12/14/16 10:00 12/14/16 11:20 Xalatan 0.005% Eye Drops - OU Not Given DAILY [facility] Nebivolol 5 mg 12/14/16 22:00 12/14/16 22:01 Bystolic - PO 5 mg HS [facility] Administration Tamsulosin HCl 0.4 mg 12/14/16 08:30 12/15/16 09:53 Flomax - PO 0.4 mg DAILY@0830 [facility] Administration ASSESSMENT/PLAN: This is a 76 yo M with PMH of CAD, CHF, HLD, HTN, uncontrolled IDDM II, CKD, asthma, BPH and Dementia who is admitted due to CAP: altered mental status, productive cough, fever, urinary frequency/incontinence, hyperglycemia x 3d. Altered mental status due to Sepsis -jaswinder source: RLL Community Acquired Pneumonia -CXR: RLL infiltrate -lactic acidosis resolved -s/p Zosyn in ED, now on Azithro and Rocephin day 2 -Blood culture no growth day 1 and urine cultures p/d -Sputum cultures p/d -Flu negative -Tylenol PO PRN -duonebs q4h [facility] -Speech and Swallow consult: pureed diet Hyperglycemia in setting of uncontrolled IDDM -medication noncompliant -Glucose >500 on admission -Insulin Sliding scale -tolerates meals, Levemir 18 HS and Novolog 8 bid -fingerstick TID AC -BG goal 250 to avoid hypoglycemia -A1C Diabetic retinopathy -severe -f/u opthalmology outpatient KIKI vs CKD -likely due to dehydration in setting of uncontrolled DM -Creatinine 1.4 (baseline) down from 2.3 -IV hydration can be reduced to 50cc/hr -trend creat Thrombocytopenia -Likely associated with PNA -resolved CHF -no sign of acute failure at this time -hold Lasix in setting of KIKI -Continue Asa, Plavix HTN -Continue Bystolic HLD -Continue Zetia, Lipitor Asthma -stable -duonebs neha BPH -Tamsulosin FEN no ivf lytes stable DVT GI PPX: SCD, diet Dysphagia Pureed, diabetic diet nectar liquids Dispo: monitor in med [facility] Problem List - Problems (1) Acute renal failure Code(s): N17.9 - ACUTE KIDNEY FAILURE, UNSPECIFIED (2) Dehydration Code(s): E86.0 - DEHYDRATION (3) Pneumonia Code(s): J18.9 - PNEUMONIA, UNSPECIFIED ORGANISM (4) Sepsis Code(s): A41.9 - SEPSIS, UNSPECIFIED ORGANISM (5) Weakness Code(s): R53.1 - WEAKNESS (6) Asthma Code(s): J45.909 - UNSPECIFIED ASTHMA, UNCOMPLICATED (7) CAD (coronary artery disease) Code(s): I25.10 - ATHSCL HEART DISEASE OF [place] CORONARY ARTERY W/O ANG PCTRS (8) CKD stage 3 due to type 2 diabetes mellitus Code(s): E11.22 - TYPE 2 DIABETES MELLITUS W DIABETIC CHRONIC KIDNEY DISEASE N18.3 - CHRONIC KIDNEY DISEASE, STAGE 3 (MODERATE) (9) Hyperlipidemia Code(s): E78.5 - HYPERLIPIDEMIA, UNSPECIFIED (10) Hypertension Code(s): I10 - ESSENTIAL (PRIMARY) HYPERTENSION (11) Obesity (BMI 30-39.9) Code(s): E66.9 - OBESITY, UNSPECIFIED (12) Type 2 diabetes mellitus Code(s): E11.9 - TYPE 2 DIABETES MELLITUS WITHOUT COMPLICATIONS (13) Community acquired pneumonia Code(s): J18.9 - PNEUMONIA, UNSPECIFIED ORGANISM Visit type - Emergency Visit Emergency Visit: Yes ED Registration Date: 12/14/16 Care time: The patient presented to the Emergency Department on the above date and was hospitalized for further evaluation of their emergent condition. - New Patient This patient is new to me today: No - Critical Care Critical Care patient: No - Discharge Referral Referred to [facility] Med P.C[facility] No <Pako Alex - Last Filed: 12/15/16 12:35> Physical Exam: ATTENDING PHYSICIAN STATEMENT I saw and evaluated the patient. I reviewed the resident's note and discussed the case with the resident. I agree with the resident's findings and plan as documented. SUBJECTIVE: seen and evaluated at the bedside OBJECTIVE: as per family pt is not yet at his baseline mental status ASSESSMENT AND PLAN: 6 year old male with a significant PMHx of CAD, CHF, HLD, HTN, DM II ( noncompliant and uncontrolled), CKD, asthma, and Dementia admitted for sepsis due to community acquired pneumonia causing metabolic encephalopathy Pneumonia -currently afebrile and hemodynamically stable -ceftriaxone and azithromycin -lactate now WNL -follow up blood/urine cultures Hyperglycemia -no anion gap -sliding scale insulin -cont levemir Acute kidney injury -due to hypoperfusion secondary to sepsis -started IVF -creat trending down
[2016-12-15] MEDS ORDERED: ALBUTEROL SO4 2.5/IPRATROPIUM 0.5 INH SOL 3 ML VIAL.NEB. NEB SCH (10:30)
--- NOTE | 2016-12-15 11:07 | MSN ---
Progress Note (SOAP) - Subjective History of Present Illness: Jerel reynolds is a 76 y/o male with a pmh of CAD, CHF, HTN, uncontrolled DM , CKD, asthma, and dementia who was brought in by his and son on 12/13 for a 2 day history of altered mental status and productive cough. This morning, he is more oriented than yesterday, responds to his name and to questions in a more clear manner. He speaks in both nahid and Telugu. He is mostly blind and reaches out to me to hold my arm to listen more closely. While he does state that his breathing is much better and his cough slightly better, he is quite lethargic. He denies any sob, f/c, n/v, h/a, chest pain, dizziness, or dysuria. - Current Medications Current Medications: Active Medications Acetaminophen (Tylenol -) 650 mg PO Q4H PRN PRN Reason: FEVER OR PAIN Last Admin: 12/14/16 13:21 Dose: 650 mg Albuterol/Ipratropium (Duoneb -) 1 amp NEB Q4H [facility] Last Admin: 12/15/16 10:29 Dose: Not Given Aspirin (Asa -) 81 mg PO DAILY [facility] Last Admin: 12/15/16 09:53 Dose: 81 mg Atorvastatin Calcium (Lipitor -) 80 mg PO HS [facility] Last Admin: 12/14/16 22:01 Dose: 80 mg Clopidogrel Bisulfate (Plavix -) 75 mg PO DAILY [facility] Last Admin: 12/15/16 09:53 Dose: 75 mg Dorzolamide HCl (Trusopt 2%) 1 drop OU TID [facility] Last Admin: 12/15/16 06:19 Dose: 1 drop Ezetimibe (Zetia -) 10 mg PO DAILY [facility] Last Admin: 12/15/16 09:53 Dose: 10 mg Azithromycin 250 mg/ Dextrose 250 mls @ 250 mls/hr IVPB DAILY [facility] Ceftriaxone Sodium (Rocephin 2gm Ivpb (Pre-Docked)) 100 mls @ 200 mls/hr IVPB DAILY [facility] Last Admin: 12/15/16 09:53 Dose: 200 mls/hr Sodium Chloride (Normal Saline -) 1,000 mls @ 50 mls/hr IV ASDIR [facility] Insulin Aspart (Novolog Vial Sliding Scale -) 1 vial SQ Q4HPO [facility] PRN Reason: Protocol Last Admin: 12/15/16 06:20 Dose: 4 units Insulin Aspart (Novolog) 8 units SQ BID@0700,1630 [facility] Last Admin: 12/15/16 06:20 Dose: 8 units Insulin Detemir (Levemir Vial) 18 units SQ [facility] Last Admin: 12/14/16 22:01 Dose: 18 units Latanoprost (Xalatan 0.005% Eye Drops -) 1 drop OU DAILY [facility] Last Admin: 12/14/16 11:20 Dose: Not Given Nebivolol (Bystolic -) 5 mg PO [facility] Last Admin: 12/14/16 22:01 Dose: 5 mg Tamsulosin HCl (Flomax -) 0.4 mg PO DAILY@0830 [facility] Last Admin: 12/15/16 09:53 Dose: 0.4 mg - Objective Vital Signs: Vital Signs Temperature 97.8 F 12/15/16 09:31 Pulse Rate 72 12/15/16 10:27 Respiratory Rate 20 12/15/16 09:31 Blood Pressure 123/88 12/15/16 09:31 O2 Sat by Pulse Oximetry (%) 96 12/15/16 10:27 Constitutional: Yes: Mild Distress (some agitation) Neck: Yes: WNL (no lymphadenopathy) Cardiovascular: Yes: Regular Rate and Rhythm, S1, S2 Respiratory: Yes: Other (bibasilar crackles, coarse breath sounds more on right. Significant upper respiratory congestion) Gastrointestinal: Yes: Normal Bowel Sounds, Soft (normoactive bowel sounds) Extremities: Yes: Other (b/l LE venous stasis) Peripheral Pulses WNL: Yes Edema: No Neurological: Yes: Alert, Oriented (oriented to person and place. respionsive to commands and name) ...Motor Strength: Yes: WNL (5/5 but only for 1-2 seconds. Lethargic so loses force after a couple of seconds) Labs Lab Results: CBC, BMP 12/15/16 08:05 12/15/16 08:05 Assessment/Plan Sepsis 2/2 to CAP -elevated white count down to 13 today from 15.5, productive cough, and right lower lobe infiltrate on cxr 12/13 -is afebrile now byut had a Tmax of 101.2 and was then given acetominophen 650 -Given Zosyn in the ED, started on azithro and rocephin -Urine Legionella and pneumococcal Influenza was negative -Speech and swallow ordered and showed some dysphagia. started on puree diet -F/u cbc. Lactic acid stopped-last was 1.66 Hyperglycemia -glucose elevated above 500 on arrival -urine glucose 3+, 1+ ketone -Started on levemir 18 hs with novolog scheduled 8 bid -Since then glucose has been better controlled in the 200s KIKI -Cr of 1.4 currently -baseline on previous admissions has been in 1.5 range - iv hydration at 125 -diuretic held
--- NOTE | 2016-12-15 11:38 | PN ---
Progress Note, BODY TECHNICIAN - Note Progress Note: Selected Entries 12/14/16 12/14/16 12/14/16 00:50 12:27 21:00 Breakfast Diet Tolerated Temperature 100.2 F H 101.2 F H 97.9 F 12/15/16 12/15/16 12/15/16 05:22 09:31 09:53 Breakfast 50% Diet Tolerated Fair Temperature 97.8 F 97.8 F Laboratory Tests 12/15/16 08:05 WBC 13.0 H Loud snoring sound when sleeping. reports this is pt's baseline. o2 sat wnl. Dysphonic. Confused. CHITINA and visually impaired. Pt's brother in law reports pt was verbal, conversant without memory, speech/language/swallowing deficits a week ago when he saw him. Overtly tolerating puree/nectar. Continue modified diet for now due to lethargy.
[2016-12-15] MEDS: ALBUTEROL SO4 2.5/IPRATROPIUM 0.5 INH SOL 3 ML VIAL.NEB. NEB SCH ×3 (14:14→21:33)
[2016-12-15] MEDS ORDERED: INSULIN (NOVOLOG) ASPART 100 UNITS/ML 10ML VIAL SQ ONE (19:06)
[2016-12-15] MEDS: NEBIVOLOL 5 MG TABLET (FP) PO SCH (21:06)
[2016-12-15] MEDS: ACETAMINOPHEN 325 MG TABLET (FP) PO PRN (21:06)
[2016-12-15] MEDS: ATORVASTATIN CA 80 MG TABLET (FP) PO SCH (21:06)
[2016-12-15] MEDS: NAPH,MB-DB/K PH,MBDB POWDER PACKET PO SCH (21:10)
[2016-12-15 22:25] LABS: CALCIUM 9.1 mg/dL (8.5-10.1); CREATININE 1.8 mg/dL (0.7-1.3)
[2016-12-15] MEDS: INSULIN DETEMIR 100 UNITS/ML MDV SQ SCH (22:51)
[2016-12-16] MEDS ORDERED: INSULIN (NOVOLOG) ASPART 100 UNITS/ML 10ML VIAL ONE ×5 (01:59→12:15)
[2016-12-16] MEDS: INSULIN SLIDING SCALE (NOVOLOG) 1 VIAL SQ SCH ×6 (02:04→22:00)
[2016-12-16] MEDS: DORZOLAMIDE 2% HCL OPHTHALMIC SOLUTION 10 ML BOTTLE OU SCH ×4 (06:15→22:43)
[2016-12-16] MEDS: ALBUTEROL SO4 2.5/IPRATROPIUM 0.5 INH SOL 3 ML VIAL.NEB. NEB SCH ×5 (06:55→21:50)
[2016-12-16] MEDS ORDERED: INSULIN (NOVOLOG) ASPART 100 UNITS/ML 10ML VIAL SQ SCH (07:00)
[2016-12-16 08:01] LABS: MCH 29.9 pg (25.7-33.7); MCHC 32.5 g/dl (32.0-35.9); MEAN CELL VOLUME 91.8 fl (80-96); MEAN PLT VOLUME 10.2 fl (7.5-11.1); PLATELET COUNT 94 K/MM3 (134-434); RDW 13.4 % (11.9-15.9); WHITE BLOOD COUNT 12.2 K/mm3 (4.0-10.0)
[2016-12-16] MEDS ORDERED: INSULIN DETEMIR 100 UNITS/ML MDV SQ SCH ×2 (08:14→22:00)
[2016-12-16 08:15] LABS: CALCIUM 9.3 mg/dL (8.5-10.1); CREATININE 1.3 mg/dL (0.7-1.3); MAGNESIUM 2.8 mg/dL (1.8-2.4)
[2016-12-16] MEDS: LATANOPROST 0.005% OPHTH SOLN 2.5ML BOTTLE OU SCH ×2 (08:15→11:18)
[2016-12-16] MEDS ORDERED: PT OWN MED DRAWER 7, Y5N ONE (11:15)
[2016-12-16] MEDS: ASPIRIN 81 MG CHEWABLE TABLETS PO SCH (11:17)
[2016-12-16] MEDS: EZETIMIBE 10 MG TABLET (FP) PO SCH (11:17)
[2016-12-16] MEDS: CLOPIDOGREL BISULFATE 75 MG TABLET (FP) PO SCH (11:17)
[2016-12-16] MEDS: TAMSULOSIN HCL 0.4 MG CAP.ER.24H (FP) PO SCH (11:17)
[2016-12-16] MEDS: NAPH,MB-DB/K PH,MBDB POWDER PACKET PO SCH ×2 (11:18→21:51)
[2016-12-16] MEDS: CEFTRIAXONE 100 ML IVPB SCH (11:18)
--- NOTE | 2016-12-16 11:25 | PN ---
<Pako Alex - Last Filed: 12/16/16 15:12> Physical Exam: ATTENDING PHYSICIAN STATEMENT I saw and evaluated the patient. I reviewed the resident's note and discussed the case with the resident. I agree with the resident's findings and plan as documented. SUBJECTIVE: seen and evaluated at the bedside OBJECTIVE: as per family pt is not yet at his baseline mental status ASSESSMENT AND PLAN: 6 year old male with a significant PMHx of CAD, CHF, HLD, HTN, DM II ( noncompliant and uncontrolled), CKD, asthma, and Dementia admitted for sepsis due to community acquired pneumonia causing metabolic encephalopathy Pneumonia -currently afebrile and hemodynamically stable -ceftriaxone and azithromycin -lactate now WNL -follow up blood/urine cultures Hyperglycemia -no anion gap -sliding scale insulin -cont levemir Acute kidney injury -due to hypoperfusion secondary to sepsis -started IVF -creat trending down CHF -has Bibasilar rales on exam and CXR shows some vascular congestion with new effusion on the left -give lasix 40 IV today and restart home dose in AM -cont nebivolol <Felisha Romero - Last Filed: 12/16/16 16:00> Physical Exam: SUBJECTIVE: Patient seen and examined Patient resting in bed, in no distress. Afebrile and hemodynamically stable. O2 sat 100% on 2L NC. Poorly controlled glucose overnight, over 400. awake and alert, responsive, improved mental status close to baseline. He states that he feels better, has less cough, no pain and improved breathing. He denies pelvic pain. He denies h/a, n/v, chest pain, sob, abd pain, diarrhea or dysuria. OBJECTIVE: Vital Signs Period Temp Pulse Resp BP Sys/Poole Pulse Ox Last 24 Hr 98.1 F-101.0 F 72-90 20-20 112-153/56-68 97 GENERAL: Awake, alert oriented but below baseline HEAD: Normal with no signs of trauma. EYES: Sclera anicteric and mildly injected b/l PERRLA EARS, NOSE, THROAT: oropharynx clear without exudates. Moist mucous membranes. NECK: supple without lymphadenopathy, JVD, or masses. LUNGS: diffuse ronchi HEART: Regular rate and rhythm, normal S1 and S2 ABDOMEN: Soft, not distended, normoactive bowel sounds, no guarding. No suprapubic tenderness MUSCULOSKELETAL: No CVA tenderness. UPPER EXTREMITIES: 2+ pulses, warm, well perfused, No peripheral edema. LOWER EXTREMITIES: venous stasis discoloration of b/l ankles, trace b/l edema NEUROLOGICAL: weak but more alert Laboratory Results - last 24 hr 12/15/16 12/15/16 12/15/16 12:19 17:59 18:50 WBC RBC Hgb Hct MCV MCHC RDW Plt Count MPV Sodium Potassium Chloride Carbon Dioxide Anion Gap BUN Creatinine POC Glucometer 324 501 Random Glucose 591 H* D Calcium Phosphorus Magnesium 12/15/16 12/15/16 12/15/16 20:20 21:47 22:43 WBC RBC Hgb Hct MCV MCHC RDW Plt Count MPV Sodium 146 H Potassium 4.6 Chloride 111 H Carbon Dioxide 28 Anion Gap 7 L BUN 32 H Creatinine 1.8 H D POC Glucometer 524 415 Random Glucose 550 H* Calcium 9.1 Phosphorus Magnesium 12/16/16 12/16/16 12/16/16 01:55 06:13 06:25 WBC 12.2 H RBC 4.26 Hgb 12.7 Hct 39.1 MCV 91.8 MCHC 32.5 RDW 13.4 Plt Count 94 L MPV 10.2 Sodium Potassium Chloride Carbon Dioxide Anion Gap BUN Creatinine POC Glucometer 289 205 Random Glucose Calcium Phosphorus Magnesium 12/16/16 06:25 WBC RBC Hgb Hct MCV MCHC RDW Plt Count MPV Sodium 152 H Potassium 4.0 Chloride 115 H Carbon Dioxide 30 Anion Gap 7 L BUN 24 H D Creatinine 1.3 D POC Glucometer Random Glucose 203 H D Calcium 9.3 Phosphorus 2.0 L D Magnesium 2.8 H Active Medications Generic Name Dose Route Start Last Admin Trade Name Freq PRN Reason Stop Dose Admin Acetaminophen 650 mg 12/14/16 13:15 12/15/16 21:06 Tylenol - PO 650 mg Q4H PRN Administration FEVER OR PAIN Albuterol/Ipratropium 1 amp 12/15/16 11:10 12/16/16 10:47 Duoneb - NEB 1 amp Q4HWA NEHA Administration Aspirin 81 mg 12/14/16 10:00 12/16/16 11:17 Asa - PO 81 mg DAILY NEHA Administration Atorvastatin Calcium 80 mg 12/14/16 22:00 12/15/16 21:06 Lipitor - PO 80 mg HS NEHA Administration Clopidogrel Bisulfate 75 mg 12/14/16 10:00 12/16/16 11:17 Plavix - PO 75 mg DAILY [facility] Administration Dorzolamide HCl 1 drop 12/14/16 06:00 12/16/16 08:15 Trusopt 2% OU Not Given TID NEHA Ezetimibe 10 mg 12/14/16 10:00 12/16/16 11:17 Zetia - PO 10 mg DAILY [facility] Administration Furosemide 40 mg 12/16/16 11:24 Lasix Injection - IVPUSH 12/16/16 11:25 ONCE ONE Azithromycin 250 mg/ Dextrose 250 mls @ 250 mls/hr 12/15/16 10:00 12/15/16 10: 00 IVPB 250 mls/hr DAILY [facility] Administration Ceftriaxone Sodium 100 mls @ 200 mls/hr 12/14/16 10:00 12/16/16 11:18 Rocephin 2gm Ivpb (Pre-Docked) IVPB 200 mls/hr DAILY [facility] Administration Insulin Aspart 1 vial 12/14/16 06:00 12/16/16 06:15 Novolog Vial Sliding Scale - SQ 4 units Q4HPO [facility] Administration Protocol Insulin Detemir 22 units 12/16/16 22:00 Levemir Vial SQ BID [facility] Latanoprost 1 drop 12/14/16 10:00 12/16/16 11:18 Xalatan 0.005% Eye Drops - OU 1 drop DAILY [facility] Administration Nebivolol 5 mg 12/14/16 22:00 12/15/16 21:06 Bystolic - PO 5 mg HS [facility] Administration Non-Formulary Medication 80 mg 12/17/16 10:00 Furosemide [Lasix] PO DAILY [facility] Potassium Phos/Sodium Phos 1 packet 12/15/16 22:00 12/16/16 11:18 Phos-Nak Packet - PO 1 packet BID NE[facility] Administration Tamsulosin HCl 0.4 mg 12/14/16 08:30 12/16/16 11:17 Flomax - PO 0.4 mg DAILY@0830 [facility] Administration ASSESSMENT/PLAN: This is a 76 yo M with PMH of CAD, CHF, HLD, HTN, uncontrolled IDDM II, CKD, asthma, BPH and Dementia who is admitted due to CAP: altered mental status, productive cough, fever, urinary frequency/incontinence, hyperglycemia x 3d. Altered mental status due to Sepsis -jaswinder source: RLL Community Acquired Pneumonia -CXR: RLL infiltrate -lactic acidosis resolved -s/p Zosyn in ED, now on Azithro and Rocephin day 3 -Blood culture no growth day 2 and urine cultures no growth -Sputum cultures p/d -Flu negative -Tylenol PO PRN -duonebs q4h neha -Speech and Swallow consult: pureed diet -CXR: patchy infitrates/congestion b/l, possible L base effusion -lasix iv 40 now, restart po 80 tomorrow Hyperglycemia in setting of uncontrolled IDDM -medication noncompliant -Glucose >500 on admission -glucose poorly controlled at this time, BG >400 last night, requiring 40 u sliding scale per day -Insulin Sliding scale -Levemir 22 BID -fingerstick TID AC -BG goal 250 to avoid hypoglycemia -A1C 5.1 must be error Diabetic retinopathy -severe -f/u opthalmology outpatient KIKI vs CKD -likely due to dehydration in setting of uncontrolled DM -Creatinine 1.3 (baseline) down from 2.3 -stopped IVF -trend creat Thrombocytopenia -Likely associated with PNA -resolved CHF -maybe in milvoloverload based on curretn cxr -lasix iv 40 now, then 80 po daily -Continue Asa, Plavix HTN -Continue Bystolic HLD -Continue Zetia, Lipitor Asthma -stable -duonebs neha BPH -Tamsulosin FEN no ivf hypernatremia 152 monitor DVT GI PPX: SCD, diet Dysphagia Pureed, diabetic diet nectar liquids Dispo: monitor in med benjamin Problem List - Problems (1) Acute renal failure Code(s): N17.9 - ACUTE KIDNEY FAILURE, UNSPECIFIED (2) Dehydration Code(s): E86.0 - DEHYDRATION (3) Pneumonia Code(s): J18.9 - PNEUMONIA, UNSPECIFIED ORGANISM (4) Sepsis Code(s): A41.9 - SEPSIS, UNSPECIFIED ORGANISM (5) Weakness Code(s): R53.1 - WEAKNESS (6) Asthma Code(s): J45.909 - UNSPECIFIED ASTHMA, UNCOMPLICATED (7) CAD (coronary artery disease) Code(s): I25.10 - ATHSCL HEART DISEASE OF [place] CORONARY ARTERY W/O ANG PCTRS (8) CKD stage 3 due to type 2 diabetes mellitus Code(s): E11.22 - TYPE 2 DIABETES MELLITUS W DIABETIC CHRONIC KIDNEY DISEASE N18.3 - CHRONIC KIDNEY DISEASE, STAGE 3 (MODERATE) (9) Hyperlipidemia Code(s): E78.5 - HYPERLIPIDEMIA, UNSPECIFIED (10) Hypertension Code(s): I10 - ESSENTIAL (PRIMARY) HYPERTENSION (11) Obesity (BMI 30-39.9) Code(s): E66.9 - OBESITY, UNSPECIFIED (12) Type 2 diabetes mellitus Code(s): E11.9 - TYPE 2 DIABETES MELLITUS WITHOUT COMPLICATIONS (13) Community acquired pneumonia Code(s): J18.9 - PNEUMONIA, UNSPECIFIED ORGANISM Visit type - Emergency Visit Emergency Visit: Yes ED Registration Date: 12/14/16 Care time: The patient presented to the Emergency Department on the above date and was hospitalized for further evaluation of their emergent condition. - New Patient This patient is new to me today: No - Critical Care Critical Care patient: No - Discharge Referral Referred to [facility] No
[2016-12-16] MEDS ORDERED: FUROSEMIDE 40 MG/4 ML INJECTABLE VIAL IVPUSH ONE (12:00)
[2016-12-16] MEDS: AZITHROMYCIN IVPB 250 MG in DEXTROSE 5%-WATER - 250 ML IVPB SCH (12:19)
[2016-12-16] MEDS ORDERED: FUROSEMIDE 40 MG/4 ML INJECTABLE VIAL ONE (14:03)
[2016-12-16] MEDS ORDERED: ALBUTEROL SO4 0.083% IH SOL 2.5 MG/3 ML VIAL.NEB. NEB ONE (15:37)
[2016-12-16] MEDS: ACETAMINOPHEN 325 MG TABLET (FP) PO PRN (17:11)
[2016-12-16 17:32] LABS: ANION GAP 14 (8-16); CO2 28 mmol/L (21-32); CREATININE 1.6 mg/dL (0.7-1.3)
[2016-12-16 18:01] LABS: MCH 30.1 pg (25.7-33.7); MEAN CELL VOLUME 91.2 fl (80-96); MEAN PLT VOLUME 10.4 fl (7.5-11.1); PLATELET COUNT 106 K/MM3 (134-434); RDW 13.8 % (11.9-15.9); WHITE BLOOD COUNT 10.9 K/mm3 (4.0-10.0)
--- NOTE | 2016-12-16 18:25 | HOSP ---
Physical Examination Vital Signs: Vital Signs Temperature 102.5 F H 12/16/16 17:03 Pulse Rate 106 H 12/16/16 17:03 Respiratory Rate 36 H 12/16/16 17:03 Blood Pressure 128/58 12/16/16 17:03 O2 Sat by Pulse Oximetry (%) 95 12/16/16 09:00 Labs: CBC, BMP 12/16/16 17:00 12/16/16 15:30 Hospitalist Encounter Assessment: Resident was notified by RN that pt was more drousy than this morning and febrile to 102. Pt was given tylenol, blood cultures were sent, CXR was repeated which showed no change from yesterday. Will expand coverage with clindamycin to cover gram positives and anerobes and monitor closely.
[2016-12-16] MEDS: CLINDAMYCIN IVPB 300 MG in DEXTROSE 5%-WATER - 48 ML IVPB SCH (19:12)
[2016-12-16] MEDS ORDERED: SODIUM CHLORIDE 1,000 ML IV STA (20:40)
--- NOTE | 2016-12-16 21:31 | HOSP ---
Physical Examination Vital Signs: Vital Signs Temperature 98.3 F 12/16/16 20:33 Pulse Rate 94 H 12/16/16 20:33 Respiratory Rate 22 12/16/16 20:33 Blood Pressure 120/48 12/16/16 20:33 O2 Sat by Pulse Oximetry (%) 96 12/16/16 20:33 Labs: CBC, BMP 12/16/16 17:00 12/16/16 15:30 Hospitalist Encounter Assessment: I was notified by the RN that patient seems to be more lethargic and drowsy and asked to come evaluate patient. When I arrived patient was sleeping but responded to sternal rub and moved by hands. He was able to speak to his in his language and went back to sleep. Patient's vitals were wnl with a an o2 sat of 98% on 2L, Temperature of 98.3, BP of 127/63, and hear rate of 76. I was also notified that patients lactic acid returned and was above 3.4 PLAN: -1 bolus of Normal Saline -1 amp of DuoNeb -Repeat Lactic acid after fluids are given -Tylenol PRN Visit type - Emergency Visit Emergency Visit: No - New Patient This patient is new to me today: No - Critical Care Critical Care patient: No
[2016-12-16] MEDS: NEBIVOLOL 5 MG TABLET (FP) PO SCH (21:50)
[2016-12-16] MEDS: ATORVASTATIN CA 80 MG TABLET (FP) PO SCH (21:51)
[2016-12-17] MEDS ORDERED: PT OWN MED DRAWER 7, Y5N ONE ×3 (01:12→20:54)
[2016-12-17] MEDS: INSULIN SLIDING SCALE (NOVOLOG) 1 VIAL SQ SCH ×6 (02:00→22:02)
[2016-12-17] MEDS: CLINDAMYCIN IVPB 300 MG in DEXTROSE 5%-WATER - 48 ML IVPB SCH ×4 (02:39→21:55)
[2016-12-17] MEDS: ALBUTEROL SO4 2.5/IPRATROPIUM 0.5 INH SOL 3 ML VIAL.NEB. NEB SCH ×4 (05:34→22:50)
[2016-12-17] MEDS: DORZOLAMIDE 2% HCL OPHTHALMIC SOLUTION 10 ML BOTTLE OU SCH ×3 (06:30→21:49)
[2016-12-17 07:24] LABS: MCH 30.8 pg (25.7-33.7); MCHC 33.7 g/dl (32.0-35.9); MEAN CELL VOLUME 91.4 fl (80-96); MEAN PLT VOLUME 9.5 fl (7.5-11.1); PLATELET COUNT 97 K/MM3 (134-434); RDW 13.6 % (11.9-15.9); WHITE BLOOD COUNT 10.2 K/mm3 (4.0-10.0)
[2016-12-17 07:52] LABS: CALCIUM 9.3 mg/dL (8.5-10.1); CREATININE 1.5 mg/dL (0.7-1.3); MAGNESIUM 2.7 mg/dL (1.8-2.4); PHOSPHOROUS 2.6 mg/dL (2.5-4.9)
[2016-12-17] MEDS ORDERED: INSULIN DETEMIR 100 UNITS/ML MDV SQ SCH (08:00)
[2016-12-17] MEDS ORDERED: FUROSEMIDE 40 MG TABLET (FP) PO SCH (10:00)
--- NOTE | 2016-12-17 10:07 | PN ---
Addendum entered and electronically signed by Felisha Romero RES 12/17/16 11: 01: add mucomyst to break up respiratory secretions. PT consult Original Note: <Felisha Romero - Last Filed: 12/17/16 10:56> Physical Exam: SUBJECTIVE: Patient seen and examined Patient resting in bed, in no distress. Afebrile and hemodynamically stable, Bp today higher than usual 160/72. O2 sat 100% on 2L NC. Poorly controlled glucose overnight, 473-388. was febfile 102F and elthargic last night with stable o2 sat and stable vitals. [place] also hyperglycemic as mentioned earlier, with lactic acidosis of over 3 and mild gap of 14. white count was trending down. CXR showed bibasilar effusions. family states he may have choked on food while lethargic. was treated with IVF bolus, nebs and clindamycin. Now awake and alert , responsive, mental status baseline. lactic acidosis and gap resolved. toletrated breakfast w/o choking. He states that he feels better, has less cough , no pain and improved breathing. He denies pelvic pain. He denies h/a, n/v, chest pain, sob, abd pain, diarrhea or dysuria. OBJECTIVE: Vital Signs Period Temp Pulse Resp BP Sys/Poole Pulse Ox Last 24 Hr 97.9 F-102.5 F 82-106 20-36 120-160/48-72 96 GENERAL: Awake, alert oriented but below baseline HEAD: Normal with no signs of trauma. EYES: Sclera anicteric and mildly injected b/l PERRLA EARS, NOSE, THROAT: oropharynx clear without exudates. Moist mucous membranes. NECK: supple without lymphadenopathy, JVD, or masses. LUNGS: diffuse ronchi HEART: Regular rate and rhythm, normal S1 and S2 ABDOMEN: Soft, not distended, normoactive bowel sounds, no guarding. No suprapubic tenderness MUSCULOSKELETAL: No CVA tenderness. UPPER EXTREMITIES: 2+ pulses, warm, well perfused, No peripheral edema. LOWER EXTREMITIES: venous stasis discoloration of b/l ankles, trace b/l edema NEUROLOGICAL: weak but more alert Laboratory Results - last 24 hr 12/16/16 12/16/16 12/16/16 12:05 15:00 15:30 WBC RBC Hgb Hct MCV MCHC RDW Plt Count MPV Sodium 150 H Potassium 4.2 Chloride 108 H Carbon Dioxide 28 Anion Gap 14 BUN 26 H Creatinine 1.6 H D POC Glucometer 299 Random Glucose Not Reportable 473 H* D Lactic Acid Calcium 9.0 Phosphorus Magnesium 12/16/16 12/16/16 12/16/16 17:00 18:13 18:30 WBC 10.9 H RBC 4.02 Hgb 12.1 Hct 36.7 MCV 91.2 MCHC 33.0 RDW 13.8 Plt Count 106 L MPV 10.4 Sodium Potassium Chloride Carbon Dioxide Anion Gap BUN Creatinine POC Glucometer 360 Random Glucose Lactic Acid 3.439 H* Calcium Phosphorus Magnesium 12/16/16 12/17/16 12/17/16 20:30 02:32 05:00 WBC RBC Hgb Hct MCV MCHC RDW Plt Count MPV Sodium Potassium Chloride Carbon Dioxide Anion Gap BUN Creatinine POC Glucometer 388 Random Glucose Lactic Acid 3.195 H* 1.363 Calcium Phosphorus Magnesium 12/17/16 12/17/16 06:00 06:00 WBC 10.2 H RBC 4.05 Hgb 12.5 Hct 37.1 MCV 91.4 MCHC 33.7 RDW 13.6 Plt Count 97 L MPV 9.5 Sodium 155 H Potassium 4.1 Chloride 116 H Carbon Dioxide 30 Anion Gap 9 BUN 27 H Creatinine 1.5 H POC Glucometer Random Glucose 351 H* D Lactic Acid Calcium 9.3 Phosphorus 2.6 D Magnesium 2.7 H Active Medications Generic Name Dose Route Start Last Admin Trade Name Freq PRN Reason Stop Dose Admin Acetaminophen 650 mg 12/14/16 13:15 12/16/16 17:11 Tylenol - PO 650 mg Q4H PRN Administration FEVER OR PAIN Albuterol/Ipratropium 1 amp 12/15/16 11:10 12/17/16 05:34 Duoneb - NEB 1 amp Q4HWA NEHA Administration Aspirin 81 mg 12/14/16 10:00 12/16/16 11:17 Asa - PO 81 mg DAILY [facility] Administration Atorvastatin Calcium 80 mg 12/14/16 22:00 12/16/16 21:51 Lipitor - PO Not Given HS [facility] Clopidogrel Bisulfate 75 mg 12/14/16 10:00 12/16/16 11:17 Plavix - PO 75 mg DAILY NEHA Administration Dorzolamide HCl 1 drop 12/14/16 06:00 12/17/16 06:30 Trusopt 2% OU 1 drop TID NEHA Administration Ezetimibe 10 mg 12/14/16 10:00 12/16/16 11:17 Zetia - PO 10 mg DAILY [facility] Administration Furosemide 80 mg 12/17/16 10:00 Lasix - PO DAILY [facility] Azithromycin 250 mg/ Dextrose 250 mls @ 250 mls/hr 12/15/16 10:00 12/16/16 12: 19 IVPB 250 mls/hr DAILY [facility] Administration Ceftriaxone Sodium 100 mls @ 200 mls/hr 12/14/16 10:00 12/16/16 11:18 Rocephin 2gm Ivpb (Pre-Docked) IVPB 200 mls/hr DAILY [facility] Administration Clindamycin Phosphate 300 mg/ 50 mls @ 104 mls/hr 12/16/16 18:45 12/17/16 02:39 Dextrose IVPB 104 mls/hr Q6H-IV [facility] Administration Insulin Aspart 1 vial 12/14/16 06:00 12/17/16 06:29 Novolog Vial Sliding Scale - SQ Not Given Q4HPO [facility] Protocol Insulin Detemir 11 units 12/17/16 08:00 Levemir Vial SQ BIDI [facility] Latanoprost 1 drop 12/14/16 10:00 12/16/16 11:18 Xalatan 0.005% Eye Drops - OU 1 drop DAILY [facility] Administration Nebivolol 5 mg 12/14/16 22:00 12/16/16 21:50 Bystolic - PO Not Given HS [facility] Potassium Phos/Sodium Phos 1 packet 12/15/16 22:00 12/16/16 21:51 Phos-Nak Packet - PO Not Given BID [facility] Tamsulosin HCl 0.4 mg 12/14/16 08:30 12/16/16 11:17 Flomax - PO 0.4 mg DAILY@0830 [facility] Administration ASSESSMENT/PLAN: This is a 76 yo M with PMH of CAD, CHF, HLD, HTN, uncontrolled IDDM II, CKD, asthma, BPH and Dementia who is admitted due to CAP: altered mental status, productive cough, fever, urinary frequency/incontinence, hyperglycemia x 3d. Altered mental status due to Sepsis -jaswinder source: RLL Community Acquired Pneumonia -CXR admissin: RLL infiltrate -episode of lethary, fever 102 and lactic acidosis >3 last night. no white count. vitals stable -lactic acidosis resolved, mental status at baseline this AM. -s/p Zosyn in ED, now on Azithro and Rocephin day 3, clinda day 2 -reepat blood cultures p/d -Sputum cultures p/d -Flu negative -Tylenol PO PRN -duonebs q4h neha -Speech and Swallow consult: pureed diet -CXR 12/16: patchy infitrates/congestion b/l, bibasilar effusions -hold lasix Hyperglycemia in setting of uncontrolled IDDM -medication noncompliant -Glucose >500 on admission -glucose poorly controlled at this time, BG >400 last night, requiring 40 u sliding scale per day -Insulin Sliding scale -Levemir 22 BID -fingerstick TID AC -BG goal 250 to avoid hypoglycemia -A1C 5.1 must be error; repeat Diabetic retinopathy -severe -f/u opthalmology outpatient KIKI vs CKD -likely due to dehydration in setting of uncontrolled DM -Creatinine 1.5 (baseline) down from 2.3 -stopped IVF -trend creat Thrombocytopenia -Likely associated with PNA -resolved CHF -stable -hold lasix -Continue Asa, Plavix HTN -Continue Bystolic HLD -Continue Zetia, Lipitor Asthma -stable -duonebs neha BPH -Tamsulosin FEN no ivf hypernatremia 152 corrected; monitor DVT GI PPX: SCD, diet, jose maria Dysphagia Pureed, diabetic diet nectar liquids Dispo: monitor in med benjamin Problem List - Problems (1) Acute renal failure Code(s): N17.9 - ACUTE KIDNEY FAILURE, UNSPECIFIED (2) Dehydration Code(s): E86.0 - DEHYDRATION (3) Pneumonia Code(s): J18.9 - PNEUMONIA, UNSPECIFIED ORGANISM (4) Sepsis Code(s): A41.9 - SEPSIS, UNSPECIFIED ORGANISM (5) Weakness Code(s): R53.1 - WEAKNESS (6) Asthma Code(s): J45.909 - UNSPECIFIED ASTHMA, UNCOMPLICATED (7) CAD (coronary artery disease) Code(s): I25.10 - ATHSCL HEART DISEASE OF [place] CORONARY ARTERY W/O ANG PCTRS (8) CKD stage 3 due to type 2 diabetes mellitus Code(s): E11.22 - TYPE 2 DIABETES MELLITUS W DIABETIC CHRONIC KIDNEY DISEASE N18.3 - CHRONIC KIDNEY DISEASE, STAGE 3 (MODERATE) (9) Hyperlipidemia Code(s): E78.5 - HYPERLIPIDEMIA, UNSPECIFIED (10) Hypertension Code(s): I10 - ESSENTIAL (PRIMARY) HYPERTENSION (11) Obesity (BMI 30-39.9) Code(s): E66.9 - OBESITY, UNSPECIFIED (12) Type 2 diabetes mellitus Code(s): E11.9 - TYPE 2 DIABETES MELLITUS WITHOUT COMPLICATIONS (13) Community acquired pneumonia Code(s): J18.9 - PNEUMONIA, UNSPECIFIED ORGANISM Visit type - Emergency Visit Emergency Visit: Yes ED Registration Date: 12/14/16 Care time: The patient presented to the Emergency Department on the above date and was hospitalized for further evaluation of their emergent condition. - New Patient This patient is new to me today: No - Critical Care Critical Care patient: No - Discharge Referral Referred to [facility] Med P.C[facility] No <Pako Alex - Last Filed: 12/17/16 11:13> Physical Exam: ATTENDING PHYSICIAN STATEMENT I saw and evaluated the patient. I reviewed the resident's note and discussed the case with the resident. I agree with the resident's findings and plan as documented. SUBJECTIVE: seen and evaluated at the bedside OBJECTIVE: as per family pt is not yet at his baseline mental status ASSESSMENT AND PLAN: 6 year old male with a significant PMHx of CAD, CHF, HLD, HTN, DM II ( noncompliant and uncontrolled), CKD, asthma, and Dementia admitted for sepsis due to community acquired pneumonia causing metabolic encephalopathy Pneumonia -was febrile and more lethargic early last night with elevated lactate -was treated with IVF, tylenol, and clindamycin was added after stated that pt choked on food yesterday -currently afebrile and hemodynamically stable -cont clindamycin ceftriaxone and azithromycin -lactate now WNL -follow up blood/urine cultures Hyperglycemia -no anion gap -sliding scale insulin -cont levemir Acute kidney injury -due to hypoperfusion secondary to sepsis -started IVF -creat trending down CHF -had Bibasilar rales on exam and CXR shows some vascular congestion with new effusion on the left yesterday -gave lasix 40 IV but then required small bolus for lactic acidosis yesterday -saturating well so hold off on restarting home of lasix for now -cont nebivolol
[2016-12-17] MEDS ORDERED: ACETYLCYSTEINE 20% 200MG/ML 4 ML VIAL *FOR ORAL / INH USE ONLY NEB ONE ×2 (10:30→13:30)
[2016-12-17] MEDS: NAPH,MB-DB/K PH,MBDB POWDER PACKET PO SCH ×2 (11:00→21:49)
[2016-12-17] MEDS: CEFTRIAXONE 100 ML IVPB SCH (11:00)
[2016-12-17] MEDS: CLOPIDOGREL BISULFATE 75 MG TABLET (FP) PO SCH (11:00)
[2016-12-17] MEDS: ASPIRIN 81 MG CHEWABLE TABLETS PO SCH (11:00)
[2016-12-17] MEDS: TAMSULOSIN HCL 0.4 MG CAP.ER.24H (FP) PO SCH (11:00)
[2016-12-17] MEDS: EZETIMIBE 10 MG TABLET (FP) PO SCH (11:01)
[2016-12-17] MEDS: INSULIN DETEMIR 100 UNITS/ML MDV SQ SCH ×2 (11:36→17:15)
[2016-12-17] MEDS ORDERED: ALBUTEROL SO4 0.083% IH SOL 2.5 MG/3 ML VIAL.NEB. NEB PRN (13:23)
[2016-12-17 14:09] LABS: URINE APPEARANCE CLEAR; URINE BILIRUBIN NEGATIVE (NEGATIVE); URINE COLOR STRAW; URINE GLUCOSE (UA) 3+ (NEGATIVE); URINE KETONE NEGATIVE (NEGATIVE); URINE LEUK ESTERASE NEGATIVE (NEGATIVE); URINE NITRITE NEGATIVE (NEGATIVE); URINE PROTEIN NEGATIVE (NEGATIVE); URINE UROBILINOGEN NEGATIVE E.U./dl (0.2-1.0)
[2016-12-17 14:10] LABS: URINE BLOOD 1+ (NEGATIVE)
[2016-12-17 14:12] LABS: URINE BACTERIA RARE /hpf (NONE SEEN); URINE MUCUS RARE; URINE WBC <1 /hpf (3-5)
[2016-12-17] MEDS: LATANOPROST 0.005% OPHTH SOLN 2.5ML BOTTLE OU SCH (16:43)
[2016-12-17] MEDS: AZITHROMYCIN IVPB 250 MG in DEXTROSE 5%-WATER - 250 ML IVPB SCH (16:46)
[2016-12-17] MEDS: ENOXAPARIN NA (PORCINE) 40 MG/0.4 ML DISP.SYRIN SQ SCH (17:09)
[2016-12-17 18:57] LABS: CALCIUM 8.5 mg/dL (8.5-10.1); CREATININE 1.6 mg/dL (0.7-1.3)
[2016-12-17] MEDS ORDERED: INSULIN (NOVOLOG) ASPART 100 UNITS/ML 10ML VIAL ONE (20:56)
[2016-12-17] MEDS: ATORVASTATIN CA 80 MG TABLET (FP) PO SCH (21:48)
[2016-12-17] MEDS: NEBIVOLOL 5 MG TABLET (FP) PO SCH (21:48)
[2016-12-18] MEDS: INSULIN SLIDING SCALE (NOVOLOG) 1 VIAL SQ SCH ×5 (01:58→21:27)
[2016-12-18] MEDS ORDERED: PT OWN MED DRAWER 7, Y5N ONE ×3 (02:02→06:53)
[2016-12-18] MEDS: CLINDAMYCIN IVPB 300 MG in DEXTROSE 5%-WATER - 48 ML IVPB SCH ×4 (02:03→21:26)
[2016-12-18] MEDS: DORZOLAMIDE 2% HCL OPHTHALMIC SOLUTION 10 ML BOTTLE OU SCH ×3 (05:59→21:26)
[2016-12-18] MEDS: ALBUTEROL SO4 2.5/IPRATROPIUM 0.5 INH SOL 3 ML VIAL.NEB. NEB SCH ×5 (06:02→22:55)
[2016-12-18] MEDS: INSULIN DETEMIR 100 UNITS/ML MDV SQ SCH ×2 (06:28→17:54)
[2016-12-18 07:27] LABS: MCH 30.2 pg (25.7-33.7); MCHC 32.9 g/dl (32.0-35.9); MEAN PLT VOLUME 9.7 fl (7.5-11.1); PLATELET COUNT 108 K/MM3 (134-434); RDW 13.5 % (11.9-15.9); WHITE BLOOD COUNT 10.2 K/mm3 (4.0-10.0)
[2016-12-18 08:13] LABS: CALCIUM 8.7 mg/dL (8.5-10.1); CREATININE 1.3 mg/dL (0.7-1.3); MAGNESIUM 2.9 mg/dL (1.8-2.4); PHOSPHOROUS 2.9 mg/dL (2.5-4.9)
[2016-12-18] MEDS: AZITHROMYCIN IVPB 250 MG in DEXTROSE 5%-WATER - 250 ML IVPB SCH (10:00)
[2016-12-18] MEDS: EZETIMIBE 10 MG TABLET (FP) PO SCH (10:00)
[2016-12-18] MEDS ORDERED: INSULIN (NOVOLOG) ASPART 100 UNITS/ML 10ML VIAL ONE ×2 (10:18→21:23)
[2016-12-18] MEDS: ENOXAPARIN NA (PORCINE) 40 MG/0.4 ML DISP.SYRIN SQ SCH (10:28)
[2016-12-18] MEDS: TAMSULOSIN HCL 0.4 MG CAP.ER.24H (FP) PO SCH (10:28)
[2016-12-18] MEDS: ASPIRIN 81 MG CHEWABLE TABLETS PO SCH (10:28)
[2016-12-18] MEDS: LATANOPROST 0.005% OPHTH SOLN 2.5ML BOTTLE OU SCH (10:29)
[2016-12-18] MEDS: NAPH,MB-DB/K PH,MBDB POWDER PACKET PO SCH ×2 (10:29→21:26)
[2016-12-18] MEDS: CEFTRIAXONE 100 ML IVPB SCH (10:29)
[2016-12-18] MEDS: CLOPIDOGREL BISULFATE 75 MG TABLET (FP) PO SCH (10:29)
[2016-12-18] MEDS ORDERED: DEXTROSE 5%-WATER - 1,000 ML IV SCH (11:30)
--- NOTE | 2016-12-18 11:47 | PN ---
Progress Note, Physician - Current Medication List Current Medications: Active Medications Acetaminophen (Tylenol -) 650 mg PO Q4H PRN PRN Reason: FEVER OR PAIN Last Admin: 12/16/16 17:11 Dose: 650 mg Albuterol Sulfate (Ventolin 0.083% Nebulizer Soln -) 1 amp NEB Q4H PRN PRN Reason: SHORT OF BREATH/WHEEZING Albuterol/Ipratropium (Duoneb -) 1 amp NEB Q4HWA [facility] Last Admin: 12/18/16 06:02 Dose: 1 amp Aspirin (Asa -) 81 mg PO DAILY [facility] Last Admin: 12/18/16 10:28 Dose: 81 mg Atorvastatin Calcium (Lipitor -) 80 mg PO HS [facility] Last Admin: 12/17/16 21:48 Dose: 80 mg Clopidogrel Bisulfate (Plavix -) 75 mg PO DAILY [facility] Last Admin: 12/18/16 10:29 Dose: 75 mg Dorzolamide HCl (Trusopt 2%) 1 drop OU TID [facility] Last Admin: 12/18/16 05:59 Dose: 1 drop Ezetimibe (Zetia -) 10 mg PO DAILY [facility] Last Admin: 12/17/16 11:01 Dose: 10 mg Enoxaparin Sodium (Lovenox -) 40 mg SQ DAILY [facility] Last Admin: 12/18/16 10:28 Dose: 40 mg Furosemide (Lasix -) 80 mg PO DAILY [facility] Azithromycin 250 mg/ Dextrose 250 mls @ 250 mls/hr IVPB DAILY [facility] Last Admin: 12/17/16 16:46 Dose: 250 mls/hr Ceftriaxone Sodium (Rocephin 2gm Ivpb (Pre-Docked)) 100 mls @ 200 mls/hr IVPB DAILY [facility] Last Admin: 12/18/16 10:29 Dose: 200 mls/hr Clindamycin Phosphate 300 mg/ (Dextrose) 50 mls @ 104 mls/hr IVPB Q6H-IV [facility] Last Admin: 12/18/16 10:28 Dose: 104 mls/hr Dextrose (D5w -) 1,000 mls @ 42 mls/hr IV ASDIR [facility] Insulin Aspart (Novolog Vial Sliding Scale -) 1 vial SQ Q4HPO [facility] PRN Reason: Protocol Last Admin: 12/18/16 10:29 Dose: 4 units Insulin Detemir (Levemir Vial) 22 units SQ BIDI [facility] Last Admin: 12/18/16 06:28 Dose: 22 units Latanoprost (Xalatan 0.005% Eye Drops -) 1 drop OU DAILY [facility] Last Admin: 12/18/16 10:29 Dose: 1 drop Nebivolol (Bystolic -) 5 mg PO HS [facility] Last Admin: 12/17/16 21:48 Dose: 5 mg Potassium Phos/Sodium Phos (Phos-Nak Packet -) 1 packet PO BID [facility] Last Admin: 12/18/16 10:29 Dose: 1 packet Tamsulosin HCl (Flomax -) 0.4 mg PO DAILY@0830 [facility] Last Admin: 12/18/16 10:28 Dose: 0.4 mg - Objective Vital Signs: Vital Signs Temperature 99.2 F 12/18/16 05:36 Pulse Rate 76 12/18/16 05:36 Respiratory Rate 19 12/18/16 05:36 Blood Pressure 134/62 12/18/16 05:36 O2 Sat by Pulse Oximetry (%) 95 12/17/16 21:00 Constitutional: Yes: Well Nourished, No Distress, Calm Eyes: Yes: WNL, Conjunctiva Clear HENT: Yes: WNL, Atraumatic, Normocephalic Neck: Yes: WNL, Supple, Trachea Midline Cardiovascular: Yes: WNL, Regular Rate and Rhythm Respiratory: Yes: WNL, Regular, CTA Bilaterally Gastrointestinal: Yes: WNL, Normal Bowel Sounds Genitourinary: Yes: Arguello Present Musculoskeletal: Yes: WNL Extremities: Yes: WNL Edema: No Integumentary: Yes: WNL Neurological: Yes: WNL, Alert, Oriented ...Motor Strength: WNL Psychiatric: Yes: WNL Labs: CBC, BMP 12/18/16 06:00 12/18/16 06:00 INR, PTT INR 1.44 (0.82-1.09) H 12/14/16 00:01 Impression/Plan Impression/Plan: 6 year old male with a significant PMHx of CAD, CHF, HLD, HTN, DM II ( noncompliant and uncontrolled), CKD, asthma, and Dementia admitted for sepsis due to community acquired pneumonia causing metabolic encephalopathy metabolic encephalopathy -now mentating well and back to baseline Pneumonia -was febrile and more lethargic early last night with elevated lactate -was treated with IVF, tylenol, and clindamycin was added after stated that pt choked on food yesterday -currently afebrile and hemodynamically stable -cont clindamycin ceftriaxone and azithromycin -lactate now WNL -follow up blood/urine cultures Hyperglycemia -no anion gap -sliding scale insulin -cont levemir Acute kidney injury -due to hypoperfusion secondary to sepsis -creat trending down Hypernatremia -start gently hydration with D5 water paying close attention to hyperglycemia and volume status as pt has CHF Urinary Retention -was found to have approx 1 liter -arguello placed and now draining urine well CHF -saturating well and no rales on exam so hold off on restarting home of lasix for now due to hypernatremia -cont nebivolol Visit type - Emergency Visit Emergency Visit: Yes ED Registration Date: 12/14/16 Care time: The patient presented to the Emergency Department on the above date and was hospitalized for further evaluation of their emergent condition. - New Patient This patient is new to me today: No - Critical Care Critical Care patient: No
[2016-12-18] MEDS: NEBIVOLOL 5 MG TABLET (FP) PO SCH (21:26)
[2016-12-18] MEDS: ATORVASTATIN CA 80 MG TABLET (FP) PO SCH (21:26)
[2016-12-19] MEDS: CLINDAMYCIN IVPB 300 MG in DEXTROSE 5%-WATER - 48 ML IVPB SCH ×4 (02:53→22:07)
[2016-12-19] MEDS: INSULIN SLIDING SCALE (NOVOLOG) 1 VIAL SQ SCH ×7 (02:58→22:18)
[2016-12-19] MEDS ORDERED: INSULIN (NOVOLOG) ASPART 100 UNITS/ML 10ML VIAL ONE ×2 (06:10→12:18)
[2016-12-19] MEDS: ALBUTEROL SO4 2.5/IPRATROPIUM 0.5 INH SOL 3 ML VIAL.NEB. NEB SCH ×5 (06:17→22:29)
[2016-12-19] MEDS: INSULIN DETEMIR 100 UNITS/ML MDV SQ SCH ×2 (06:17→18:03)
[2016-12-19] MEDS: DORZOLAMIDE 2% HCL OPHTHALMIC SOLUTION 10 ML BOTTLE OU SCH ×3 (06:18→22:08)
[2016-12-19 07:35] LABS: BASOPHIL 0.4 % (0-2.0); MCH 29.9 pg (25.7-33.7); MCHC 32.8 g/dl (32.0-35.9); MEAN PLT VOLUME 9.1 fl (7.5-11.1); NEUTROPHILS 69.4 % (42.8-82.8); PLATELET COUNT 123 K/MM3 (134-434); RDW 13.7 % (11.9-15.9); WHITE BLOOD COUNT 11.7 K/mm3 (4.0-10.0)
[2016-12-19 08:31] LABS: CALCIUM 8.8 mg/dL (8.5-10.1); CREATININE 1.2 mg/dL (0.7-1.3)
[2016-12-19] MEDS ORDERED: PT OWN MED DRAWER 7, Y5N ONE ×2 (08:40→17:10)
[2016-12-19] MEDS: EZETIMIBE 10 MG TABLET (FP) PO SCH (09:43)
[2016-12-19] MEDS: TAMSULOSIN HCL 0.4 MG CAP.ER.24H (FP) PO SCH ×2 (09:43→22:07)
[2016-12-19] MEDS: CLOPIDOGREL BISULFATE 75 MG TABLET (FP) PO SCH (09:43)
[2016-12-19] MEDS: NAPH,MB-DB/K PH,MBDB POWDER PACKET PO SCH (09:45)
[2016-12-19] MEDS: ENOXAPARIN NA (PORCINE) 40 MG/0.4 ML DISP.SYRIN SQ SCH (09:49)
[2016-12-19] MEDS: LATANOPROST 0.005% OPHTH SOLN 2.5ML BOTTLE OU SCH (09:49)
[2016-12-19] MEDS: AZITHROMYCIN IVPB 250 MG in DEXTROSE 5%-WATER - 250 ML IVPB SCH (10:00)
--- NOTE | 2016-12-19 11:08 | PN ---
Progress Note, Physician - Current Medication List Current Medications: Active Medications Acetaminophen (Tylenol -) 650 mg PO Q4H PRN PRN Reason: FEVER OR PAIN Last Admin: 12/16/16 17:11 Dose: 650 mg Albuterol Sulfate (Ventolin 0.083% Nebulizer Soln -) 1 amp NEB Q4H PRN PRN Reason: SHORT OF BREATH/WHEEZING Albuterol/Ipratropium (Duoneb -) [address] [facility] Last Admin: 12/19/16 06:17 Dose: 1 amp Aspirin (Asa -) [address] [facility] Last Admin: 12/18/16 10:28 Dose: 81 mg Atorvastatin Calcium (Lipitor -) [address] [facility] Last Admin: 12/18/16 21:26 Dose: 80 mg Clopidogrel Bisulfate (Plavix -) [address] [facility] Last Admin: 12/19/16 09:43 Dose: 75 mg Dorzolamide HCl (Trusopt 2%) [address] [facility] Last Admin: 12/19/16 06:18 Dose: 1 drop Ezetimibe (Zetia -) [address] [facility] Last Admin: 12/19/16 09:43 Dose: 10 mg Enoxaparin Sodium (Lovenox -) [address] [facility] Last Admin: 12/19/16 09:49 Dose: 40 mg Ceftriaxone Sodium (Rocephin 2gm Ivpb (Pre-Docked)) 100 mls @ 200 mls/hr IVPB DAILY [facility] Last Admin: 12/18/16 10:29 Dose: 200 mls/hr Clindamycin Phosphate 300 mg/ (Dextrose) 50 mls @ 104 mls/hr IVPB Q6H-IV [facility] Last Admin: 12/19/16 02:53 Dose: 104 mls/hr Dextrose (D5w -) 1,000 mls @ 42 mls/hr IV ASDIR [facility] Last Admin: 12/18/16 17:29 Dose: 42 mls/hr Insulin Aspart (Novolog Vial Sliding Scale -) [address] [facility] PRN Reason: Protocol Last Admin: 12/19/16 06:16 Dose: Not Given Insulin Detemir (Levemir Vial) [address] [facility] Last Admin: 12/19/16 06:17 Dose: 22 units Latanoprost (Xalatan 0.005% Eye Drops -) [address] [facility] Last Admin: 12/19/16 09:49 Dose: 1 drop Nebivolol (Bystolic -) [address] [facility] Last Admin: 12/18/16 21:26 Dose: 5 mg Tamsulosin HCl (Flomax -) 0.[address] [facility] - Objective Vital Signs: Vital Signs Temperature 97.9 F 12/19/16 09:00 Pulse Rate 74 12/19/16 09:00 Respiratory Rate 20 12/19/16 09:00 Blood Pressure 136/60 12/19/16 09:00 O2 Sat by Pulse Oximetry (%) 95 12/18/16 21:00 Constitutional: Yes: Well Nourished, No Distress, Calm Eyes: Yes: Conjunctiva Clear, Other (legally blind) HENT: Yes: WNL, Atraumatic, Normocephalic Neck: Yes: WNL, Supple, Trachea Midline Cardiovascular: Yes: WNL, Regular Rate and Rhythm Respiratory: Yes: WNL, Regular, CTA Bilaterally. No: Rales, Rhonchi, Wheezes Gastrointestinal: Yes: WNL, Normal Bowel Sounds Musculoskeletal: Yes: WNL Extremities: Yes: WNL Edema: No Integumentary: Yes: WNL Neurological: Yes: WNL, Alert, Oriented ...Motor Strength: WNL Psychiatric: Yes: WNL Labs: CBC, BMP 12/19/16 06:20 12/19/16 06:20 INR, PTT INR 1.44 (0.82-1.09) H 12/14/16 00:01 Impression/Plan Impression/Plan: 6 year old male with a significant PMHx of CAD, CHF, HLD, HTN, DM II ( noncompliant and uncontrolled), CKD, asthma, and Dementia admitted for sepsis due to community acquired pneumonia causing metabolic encephalopathy metabolic encephalopathy -now mentating well and back to baseline Pneumonia -was febrile and more lethargic last week with elevated lactate -was treated with IVF, tylenol, and clindamycin was added after stated that pt choked on food that day in the hospital -currently afebrile and hemodynamically stable -cont clindamycin ceftriaxone; completed azithromycin -blood/urine cultures negative Hyperglycemia -improved -sliding scale insulin -cont levemir Acute kidney injury -due to hypoperfusion secondary to sepsis -creat trending down after gentle IVF Hypernatremia -started gently hydration with D5 water paying close attention to hyperglycemia and volume status as pt has CHF -lungs clear on exam but developing left sided effusion on chest xray today so will stop IVF at this time -follow up renal consult for assistance in management Urinary Retention -was found to have approx 1 liter -arguello placed and now draining urine well -increase tamsulosin 0.4 form daily to BID -voiding trial in next day or 2 CHF -saturating well and no rales on exam so hold off on restarting home of lasix for now due to hypernatremia -lungs clear on exam but developing left sided effusion on chest xray today so will stop IVF at this time -cont nebivolol Visit type - Emergency Visit Emergency Visit: Yes ED Registration Date: 12/14/16 Care time: The patient presented to the Emergency Department on the above date and was hospitalized for further evaluation of their emergent condition. - New Patient This patient is new to me today: No - Critical Care Critical Care patient: No
--- NOTE | 2016-12-19 13:00 | PN ---
Progress Note, [employer] - Note Progress Note: Selected Entries 12/18/16 12/18/16 12/18/16 05:36 10:00 13:26 Breakfast Supper Temperature 99.2 F 99.3 F 99.2 F 12/18/16 12/18/16 12/19/16 18:00 21:00 01:39 Breakfast Supper 75% Temperature 98.6 F 99.1 F 98.2 F 12/19/16 12/19/16 12/19/16 06:01 09:00 10:32 Breakfast 100% Supper Temperature 98.2 F 97.9 F On puree and nectar thick liquid.
[2016-12-19] MEDS: CEFTRIAXONE 100 ML IVPB SCH (13:17)
[2016-12-19] MEDS: ASPIRIN 81 MG CHEWABLE TABLETS PO SCH (18:01)
[2016-12-19] MEDS: NEBIVOLOL 5 MG TABLET (FP) PO SCH (22:07)
[2016-12-19] MEDS: ATORVASTATIN CA 80 MG TABLET (FP) PO SCH (22:07)
[2016-12-20] MEDS ORDERED: INSULIN (NOVOLOG) ASPART 100 UNITS/ML 10ML VIAL ONE ×4 (01:42→20:43)
[2016-12-20] MEDS: INSULIN SLIDING SCALE (NOVOLOG) 1 VIAL SQ SCH ×6 (01:46→21:55)
[2016-12-20] MEDS: CLINDAMYCIN IVPB 300 MG in DEXTROSE 5%-WATER - 48 ML IVPB SCH ×4 (03:21→21:51)
[2016-12-20] MEDS: INSULIN DETEMIR 100 UNITS/ML MDV SQ SCH ×2 (06:13→17:38)
[2016-12-20] MEDS: DORZOLAMIDE 2% HCL OPHTHALMIC SOLUTION 10 ML BOTTLE OU SCH ×3 (06:14→21:52)
[2016-12-20] MEDS: ALBUTEROL SO4 2.5/IPRATROPIUM 0.5 INH SOL 3 ML VIAL.NEB. NEB SCH ×5 (06:32→21:25)
[2016-12-20 07:41] LABS: BASOPHIL 0.5 % (0-2.0); EOSINOPHIL 5.1 % (0-4.5); MCH 30.3 pg (25.7-33.7); MCHC 33.4 g/dl (32.0-35.9); MEAN CELL VOLUME 90.7 fl (80-96); MEAN PLT VOLUME 9.3 fl (7.5-11.1); NEUTROPHILS 71.8 % (42.8-82.8); PLATELET COUNT 128 K/MM3 (134-434); RDW 13.6 % (11.9-15.9); WHITE BLOOD COUNT 11.9 K/mm3 (4.0-10.0)
[2016-12-20 08:11] LABS: CREATININE 1.2 mg/dL (0.7-1.3); MAGNESIUM 2.8 mg/dL (1.8-2.4); PHOSPHOROUS 3.4 mg/dL (2.5-4.9)
[2016-12-20] MEDS ORDERED: PT OWN MED DRAWER 7, Y5N ONE ×2 (09:15→13:55)
[2016-12-20] MEDS: EZETIMIBE 10 MG TABLET (FP) PO SCH (09:47)
[2016-12-20] MEDS: ENOXAPARIN NA (PORCINE) 40 MG/0.4 ML DISP.SYRIN SQ SCH (09:47)
[2016-12-20] MEDS: CLOPIDOGREL BISULFATE 75 MG TABLET (FP) PO SCH (09:47)
[2016-12-20] MEDS: ASPIRIN 81 MG CHEWABLE TABLETS PO SCH (09:47)
[2016-12-20] MEDS: TAMSULOSIN HCL 0.4 MG CAP.ER.24H (FP) PO SCH ×2 (09:47→21:51)
[2016-12-20] MEDS: CEFTRIAXONE 100 ML IVPB SCH (09:48)
[2016-12-20] MEDS ORDERED: DEXTROSE 5%-WATER - 1,000 ML IV SCH (10:00)
[2016-12-20] MEDS: LATANOPROST 0.005% OPHTH SOLN 2.5ML BOTTLE OU SCH (12:55)
[2016-12-20 14:13] LABS: CALCIUM 8.2 mg/dL (8.5-10.1); CREATININE 1.5 mg/dL (0.7-1.3)
--- NOTE | 2016-12-20 14:28 | PN ---
Teaching Attending Note Name of Resident: Felisha Romero ATTENDING PHYSICIAN STATEMENT I saw and evaluated the patient. I reviewed the resident's note and discussed the case with the resident. I agree with the resident's findings and plan as documented. SUBJECTIVE:currently asymptomatic. denies CP,SOb,fever, chills, N/V/C/D OBJECTIVE: Last Vital Signs Temp Pulse Resp BP Pulse Ox 99 F 74 18 128/61 98 12/20/16 06:24 12/20/16 10:11 12/20/16 06:24 12/20/16 06:24 12/20/16 10:11 General NAD CV S1 S2 RRR no murmur/rub/gallop Lungs coarse breath sounds diffusely. no wheezing or crackles ASSESSMENT AND PLAN: 76yo M with PMH dementia, CKD, HTN, dyslipidemia, DM, CAD presented to the ER and was admitted for further evaluation of their emergent condition 1. Sepsis due to PNA- concerns for aspiration. completed course of azithromycin , today day 7 of Ceftriaxone and day 5 of Clindamycin. will d/c all abx today.evaluated by swallow pathologist and on puree diet. 2. Hyperlgycemia- now improved. concern pt was not getting accurate insulin coverage at home as reports no home insulin but last year was on levemir 22units BID.. currently on levemir 22units BID and iss. 3. Hypernatremia- appears to be may be chronic as presented multiple times with this but corrects with hydration. only mild improvement since admission. suspicion is from osmotic diuresis from hyperglycemia. may need to have further workup as outpatient. encourage po intake of water 4. Acute on CKD- likely deyhdration and sepsis. now improved 5. urinary retention- flomax dosing increased. will attempt to remove arguello. will need to f/u with urology as outpatient 6. d/c planning to [facility]. awaiting authorization
--- NOTE | 2016-12-20 14:42 | DS ---
Addendum entered and electronically signed by Felisha Romero RES 12/21/16 10: 51: Patient aaox3, nad, afebrile and hemodynamically stable, no acute events overnight. He voided at 3 am: full diaper with 220 cc residual urine in bladder. another void followed with full diaper and 250cc residual. Glucose is well controlled. Labs unremarkable. He is not complaining of pain or discomfort and physical exam is benign. Discharge is pending acceptance to a rehabilitation facility. Original Note: Physical Exam: SUBJECTIVE: Patient seen and examined Patient resting in bed, in no distress. Afebrile day 3 and hemodynamically stable O2 sat 98% on room air. Glucose well controlled. Mental status at baseline. Still weak overall strength 4/5. toletrating Puree diet . He states that he feels better, has less cough, no pain and improved breathing. He denies pelvic pain. He denies h/a, n/v, chest pain, sob, abd pain, diarrhea or dysuria. OBJECTIVE: Vital Signs Period Temp Pulse Resp BP Sys/Poole Pulse Ox Last 24 Hr 98.1 F-99 F 70-78 18-20 116-141/54-80 98-100 PHYSICAL EXAM GENERAL: Awake, alert oriented but below baseline HEAD: Normal with no signs of trauma. EYES: Sclera anicteric and mildly injected b/l PERRLA EARS, NOSE, THROAT: oropharynx clear without exudates. Moist mucous membranes. NECK: supple without lymphadenopathy, JVD, or masses. LUNGS: diffuse ronchi, mostly coming from upper respiratory area HEART: Regular rate and rhythm, normal S1 and S2 ABDOMEN: Soft, not distended, normoactive bowel sounds, no guarding. No suprapubic tenderness MUSCULOSKELETAL: No CVA tenderness. UPPER EXTREMITIES: 2+ pulses, warm, well perfused, No peripheral edema. LOWER EXTREMITIES: venous stasis discoloration of b/l ankles, trace b/l edema NEUROLOGICAL: weak but more alert LABS Laboratory Results - last 24 hr 12/19/16 12/19/16 12/20/16 16:59 22:17 01:45 WBC RBC Hgb Hct MCV MCHC RDW Plt Count MPV Neutrophils % Lymphocytes % Monocytes % Eosinophils % Basophils % Sodium Potassium Chloride Carbon Dioxide Anion Gap BUN Creatinine POC Glucometer 462 284 129 Random Glucose Calcium Phosphorus Magnesium 12/20/16 12/20/16 12/20/16 06:11 07:00 07:00 WBC 11.9 H RBC 3.84 L Hgb 11.7 Hct 34.9 L MCV 90.7 MCHC 33.4 RDW 13.6 Plt Count 128 L MPV 9.3 Neutrophils % 71.8 Lymphocytes % 15.0 Monocytes % 7.6 Eosinophils % 5.1 H Basophils % 0.5 Sodium 150 H Potassium 4.2 Chloride 118 H Carbon Dioxide 25 Anion Gap 7 L BUN 26 H Creatinine 1.2 POC Glucometer 130 Random Glucose 153 H Calcium 8.0 L Phosphorus 3.4 Magnesium 2.8 H 12/20/16 12/20/16 12:19 13:45 WBC RBC Hgb Hct MCV MCHC RDW Plt Count MPV Neutrophils % Lymphocytes % Monocytes % Eosinophils % Basophils % Sodium 145 Potassium 4.3 Chloride 111 H Carbon Dioxide 27 Anion Gap 7 L BUN 25 H Creatinine 1.5 H D POC Glucometer 310 Random Glucose 373 H* D Calcium 8.2 L Phosphorus Magnesium HOSPITAL COURSE: Date of Admission:12/14/16 Patient is a 76 year old male with a significant PMHx of CAD, CHF, HLD, HTN, DM II (noncompliant and uncontrolled), CKD, asthma, and Dementia who was brought to the ED by his and son for worsening altered mental status for the last 2 -3 days. At baseline, patient is awake, alert, and oriented. She does report that he has worsening vision due to his uncontrolled diabetes, which worsened his gait in the last month. Patient's also reports a productive cough with white sputum for the last 2-3 days associated with fever and increasing urinary frequency. According to , she has been administering Tylenol every four hours for the fever. In the ED patient was found to have a rectal temperature of 100.2. However, she denies any chills, nausea, vomiting, chest pain, palpitations, shortness of breath. He was admitted due to Altered mental status due to Sepsis, with likley source: RLL Community Acquired Pneumonia. CXR on admissin showed RLL infiltrate. He was treated with fluids and antibiotics ( azithro, rocephin and clinda). Over hospital course, his lethary, fever white count and lactic acidosis resolved. His blood cultures were negative. During admisison, he developed urinary retention, was treated with arguello catheter and incresed dose of tamsulosin (0.4 BID). His blood glucose, initially high, was controlled with Insulin Sliding scale and Levemir 22 BID. His createninge normalized to baseline. He was discharged to correction in stable condition, for further physical therapy. He did not require furher antibiotics on discharge. 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 Your mental status was initially altered because of fever and infection but has improved as the infection was successfully treated with antibiotics. During your stay you also developed urinary retention (not being able to pee on your own) because of an enlarged prostate and were treated with a catheter and an increased dose of tamsulosin. Tamsulosin should shrink your prostate and resolve the urinary retention. Before you were discharged, we made sure you can pee on your own. You finished your course of antibiotics and no longer require further treatment for the pneumonia. You are still weak and require rehabilitation in a correction. Your sugar was well controlled on levemir 23 units twice a day and sliding scale. For now you require puree and nectar thick liquid diet, as per swallow specialist. Please see your primary care physician in a week return to hospital if symptoms worsen Referrals: Prema Fiore MD [Primary Care Provider] - 1 Week Disposition: LONG TERM FACILITY - Home Medications Comprehensive Discharge Medication List: Ambulatory Orders Clopidogrel Bisulfate [Plavix -] 75 mg PO DAILY 02/26/12 Nebivolol HCl [Bystolic] 5 mg PO HS 06/23/14 Aspirin [ASA -] 81 mg PO DAILY 12/14/16 Atorvastatin Ca [Lipitor] 80 mg PO HS 12/14/16 Bimatoprost [Lumigan] 1 drop IO DAILY 12/14/16 Cyanocobalamin [Vitamin B12 -] 1,000 mcg PO DAILY 12/14/16 Dorzolamide HCl [Trusopt 2% -] 1 drop OU TID 12/14/16 Ezetimibe [Zetia] 10 mg PO DAILY 12/14/16 Furosemide [Lasix] 80 mg PO DAILY 12/14/16 Albuterol 0.083% Nebulizer Elyse [Ventolin 0.083% Nebulizer Soln -] 1 amp NEB Q4H PRN #5 amp 12/20/16 Insulin (Levemir) [Levemir Vial] 22 units SQ BIDI #10 ml 12/20/16 Insulin Sliding Scale [Novolog Vial Sliding Scale -] 1 vial SQ Q4HPO #10 units 12/20/16 Tamsulosin HCl [Flomax -] 0.4 mg PO BID #120 cap.er.24h 12/20/16 Problem List - Problems (1) Acute renal failure Code(s): N17.9 - ACUTE KIDNEY FAILURE, UNSPECIFIED (2) Dehydration Code(s): E86.0 - DEHYDRATION (3) Pneumonia Code(s): J18.9 - PNEUMONIA, UNSPECIFIED ORGANISM (4) Sepsis Code(s): A41.9 - SEPSIS, UNSPECIFIED ORGANISM (5) Weakness Code(s): R53.1 - WEAKNESS (6) Asthma Code(s): J45.909 - UNSPECIFIED ASTHMA, UNCOMPLICATED (7) CAD (coronary artery disease) Code(s): I25.10 - ATHSCL HEART DISEASE OF [place] CORONARY ARTERY W/O ANG PCTRS (8) CKD stage 3 due to type 2 diabetes mellitus Code(s): E11.22 - TYPE 2 DIABETES MELLITUS W DIABETIC CHRONIC KIDNEY DISEASE N18.3 - CHRONIC KIDNEY DISEASE, STAGE 3 (MODERATE) (9) Hyperlipidemia Code(s): E78.5 - HYPERLIPIDEMIA, UNSPECIFIED (10) Hypertension Code(s): I10 - ESSENTIAL (PRIMARY) HYPERTENSION (11) Obesity (BMI 30-39.9) Code(s): E66.9 - OBESITY, UNSPECIFIED (12) Type 2 diabetes mellitus Code(s): E11.9 - TYPE 2 DIABETES MELLITUS WITHOUT COMPLICATIONS (13) Community acquired pneumonia Code(s): J18.9 - PNEUMONIA, UNSPECIFIED ORGANISM This patient is new to me today: No Emergency Visit: Yes ED Registration Date: 12/14/16 Care time: The patient presented to the Emergency Department on the above date and was hospitalized for further evaluation of their emergent condition. Critical Care patient: No - Discharge Referral Referred to [facility] No
[2016-12-20] MEDS ORDERED: INSULIN DETEMIR 100 UNITS/ML MDV SQ ONE (19:03)
[2016-12-20] MEDS: NEBIVOLOL 5 MG TABLET (FP) PO SCH (21:51)
[2016-12-20] MEDS: ATORVASTATIN CA 80 MG TABLET (FP) PO SCH (21:51)
[2016-12-20] MEDS: ACETAMINOPHEN 325 MG TABLET (FP) PO PRN (21:52)
[2016-12-21] MEDS: INSULIN SLIDING SCALE (NOVOLOG) 1 VIAL SQ SCH ×6 (01:35→23:36)
[2016-12-21] MEDS: CLINDAMYCIN IVPB 300 MG in DEXTROSE 5%-WATER - 48 ML IVPB SCH ×2 (03:04→10:21)
[2016-12-21] MEDS: DORZOLAMIDE 2% HCL OPHTHALMIC SOLUTION 10 ML BOTTLE OU SCH ×3 (05:39→23:36)
[2016-12-21] MEDS: INSULIN DETEMIR 100 UNITS/ML MDV SQ SCH ×3 (06:08→18:56)
[2016-12-21] MEDS: ALBUTEROL SO4 2.5/IPRATROPIUM 0.5 INH SOL 3 ML VIAL.NEB. NEB SCH ×5 (06:45→22:00)
[2016-12-21 07:41] LABS: MCH 30.6 pg (25.7-33.7); MCHC 33.6 g/dl (32.0-35.9); MEAN CELL VOLUME 90.9 fl (80-96); MEAN PLT VOLUME 9.5 fl (7.5-11.1); PLATELET COUNT 128 K/MM3 (134-434); RDW 13.6 % (11.9-15.9); WHITE BLOOD COUNT 10.7 K/mm3 (4.0-10.0)
[2016-12-21 08:29] LABS: CALCIUM 8.3 mg/dL (8.5-10.1); CREATININE 1.3 mg/dL (0.7-1.3); MAGNESIUM 2.8 mg/dL (1.8-2.4); PHOSPHOROUS 3.2 mg/dL (2.5-4.9)
[2016-12-21] MEDS: ASPIRIN 81 MG CHEWABLE TABLETS PO SCH (10:21)
[2016-12-21] MEDS: CEFTRIAXONE 100 ML IVPB SCH (10:22)
[2016-12-21] MEDS: LATANOPROST 0.005% OPHTH SOLN 2.5ML BOTTLE OU SCH (10:22)
[2016-12-21] MEDS: TAMSULOSIN HCL 0.4 MG CAP.ER.24H (FP) PO SCH ×2 (10:22→23:40)
[2016-12-21] MEDS: CLOPIDOGREL BISULFATE 75 MG TABLET (FP) PO SCH (10:22)
[2016-12-21] MEDS: ENOXAPARIN NA (PORCINE) 40 MG/0.4 ML DISP.SYRIN SQ SCH (10:22)
[2016-12-21] MEDS: EZETIMIBE 10 MG TABLET (FP) PO SCH (11:12)
--- NOTE | 2016-12-21 12:59 | PN ---
Teaching Attending Note Name of Resident: Felisha Romero ATTENDING PHYSICIAN STATEMENT I saw and evaluated the patient. I reviewed the resident's note and discussed the case with the resident. I agree with the resident's findings and plan as documented. SUBJECTIVE:currently asymptomatic. denies Cp, SOB,fever, chills, N/V/C/D OBJECTIVE: Last Vital Signs Temp Pulse Resp BP Pulse Ox 98.1 F 73 20 129/64 96 12/21/16 09:45 12/21/16 10:15 12/21/16 09:45 12/21/16 09:45 12/21/16 10:15 General NAD CV S1 S2 RRR no murmur/rub/gallop Lungs coarse breath sounds diffusely.crackles B/L bases no wheezing ASSESSMENT AND PLAN: 76yo M with PMH dementia, CKD, HTN, dyslipidemia, DM, CAD presented to the ER and was admitted for further evaluation of their emergent condition 1. Sepsis due to PNA- concerns for aspiration. Completed course of abx here. evaluated by swallow therapist and tolerating puree diet 2. Hyperlgycemia- now improved. concern pt was not getting accurate insulin coverage at home as reports no home insulin but last year was on levemir 22units BID. currently on levemir 22units BID and iss. 3. Hypernatremia-slight trend down. ivf d/c due to developing pleural effusions , will start reduced home dose of lasix. encourage po intake of water 4. Acute on CKD- likely deyhdration and sepsis. now improved 5. urinary retention- flomax dosing increased. arguello removed and voiding freely. will need to f/u with urology as outpatient 6. d/c planning to [facility]. awaiting authorization. case d/w son present at bedside. answered all questions, agrees with plan
--- NOTE | 2016-12-21 17:27 | PN ---
Physical Exam: SUBJECTIVE: Patient seen and examined Patient resting in bed, in no distress. Afebrile and hemodynamically stable O2 sat 98% on room air. Glucose well controlled. Mental status at baseline. Still weak overall strength 4/5. He states that he feels well, has less cough, no pain and improved breathing. He denies pelvic pain. He denies h/a, n/v, chest pain, sob, abd pain, diarrhea or dysuria. He voided at 3 am: full diaper with 220 cc residual urine in bladder. another void followed with full diaper and 250cc residual. then 400 cc residual. Discharge is pending acceptance to a rehabilitation facility. OBJECTIVE: Vital Signs Period Temp Pulse Resp BP Sys/Poole Pulse Ox Last 24 Hr 97.8 F-98.5 F 68-88 20-20 106-131/0-64 96-98 GENERAL: Awake, alert oriented but below baseline HEAD: Normal with no signs of trauma. EYES: Sclera anicteric and mildly injected b/l PERRLA EARS, NOSE, THROAT: oropharynx clear without exudates. Moist mucous membranes. NECK: supple without lymphadenopathy, JVD, or masses. LUNGS: diffuse ronchi, mostly coming from upper respiratory area HEART: Regular rate and rhythm, normal S1 and S2 ABDOMEN: Soft, not distended, normoactive bowel sounds, no guarding. No suprapubic tenderness MUSCULOSKELETAL: No CVA tenderness. UPPER EXTREMITIES: 2+ pulses, warm, well perfused, No peripheral edema. LOWER EXTREMITIES: venous stasis discoloration of b/l ankles, trace b/l edema NEUROLOGICAL: weak but more alert Laboratory Results - last 24 hr 12/20/16 12/20/16 12/21/16 17:25 21:55 01:34 WBC RBC Hgb Hct MCV MCHC RDW Plt Count MPV Sodium Potassium Chloride Carbon Dioxide Anion Gap BUN Creatinine POC Glucometer 240 245 108 Random Glucose Calcium Phosphorus Magnesium 12/21/16 12/21/16 12/21/16 05:31 06:00 06:00 WBC 10.7 H RBC 3.39 L Hgb 10.4 L D Hct 30.9 L MCV 90.9 MCHC 33.6 RDW 13.6 Plt Count 128 L MPV 9.5 Sodium 148 H Potassium 4.5 Chloride 115 H Carbon Dioxide 28 Anion Gap 5 L BUN 23 H Creatinine 1.3 POC Glucometer 55 Random Glucose 162 H D Calcium 8.3 L Phosphorus 3.2 Magnesium 2.8 H 12/21/16 12/21/16 12/21/16 06:20 10:39 15:20 WBC RBC Hgb Hct MCV MCHC RDW Plt Count MPV Sodium Potassium Chloride Carbon Dioxide Anion Gap BUN Creatinine POC Glucometer 139 336 401 Random Glucose Calcium Phosphorus Magnesium Active Medications Generic Name Dose Route Start Last Admin Trade Name Freq PRN Reason Stop Dose Admin Acetaminophen 650 mg 12/14/16 13:15 12/20/16 21:52 Tylenol - PO 650 mg Q4H PRN Administration FEVER OR PAIN Albuterol Sulfate 1 amp 12/17/16 13:23 Ventolin 0.083% Nebulizer Soln - NEB Q4H PRN SHORT OF BREATH/WHEEZING Albuterol/Ipratropium 1 amp 12/15/16 11:10 12/21/16 13:45 Duoneb - NEB 1 amp Q4HWA NHEA Administration Aspirin 81 mg 12/14/16 10:00 12/21/16 10:21 Asa - PO 81 mg DAILY NEHA Administration Atorvastatin Calcium 80 mg 12/14/16 22:00 12/20/16 21:51 Lipitor - PO 80 mg HS NEHA Administration Clopidogrel Bisulfate 75 mg 12/14/16 10:00 12/21/16 10:22 Plavix - PO 75 mg DAILY NEHA Administration Dorzolamide HCl 1 drop 12/14/16 06:00 12/21/16 14:49 Trusopt 2% OU 1 drop TID NEHA Administration Ezetimibe 10 mg 12/14/16 10:00 12/21/16 11:12 Zetia - PO 10 mg DAILY NEHA Administration Enoxaparin Sodium 40 mg 12/17/16 11:30 12/21/16 10:22 Lovenox - SQ 40 mg DAILY NEHA Administration Insulin Aspart 1 vial 12/14/16 06:00 12/21/16 15:32 Novolog Vial Sliding Scale - SQ 10 units Q4HPO NEHA Administration Protocol Insulin Detemir 22 units 12/17/16 10:09 12/21/16 10:22 Levemir Vial SQ 22 units BIDI NEHA Administration Latanoprost 1 drop 12/14/16 10:00 12/21/16 10:22 Xalatan 0.005% Eye Drops - OU 1 drop DAILY NEHA Administration Nebivolol 5 mg 12/14/16 22:00 12/20/16 21:51 Bystolic - PO Not Given HS [facility] Nystatin 500,000 units 12/21/16 18:00 Nystatin Oral Suspension - PO Q6HPO [facility] Tamsulosin HCl 0.4 mg 12/19/16 22:00 12/21/16 10:22 Flomax - PO 0.4 mg BID NEHA Administration ASSESSMENT/PLAN: This is a 76 yo M with PMH of CAD, CHF, HLD, HTN, uncontrolled IDDM II, CKD, asthma, BPH and Dementia who is admitted due to CAP: altered mental status, productive cough, fever, urinary frequency/incontinence, hyperglycemia x 3d. Altered mental status due to Sepsis -jaswinder source: RLL Community Acquired Pneumonia -CXR admissin: RLL infiltrate -mental status now baseline -lactic acidosis resolved, mental status at baseline this AM. -finished abx -Tylenol PO PRN -duonebs q4h neha -Speech and Swallow consult: pureed diet -CXR 12/16: patchy infitrates/congestion b/l, bibasilar effusions Hyperglycemia in setting of uncontrolled IDDM -medication noncompliant -Glucose >500 on admission -glucose well controlled -Insulin Sliding scale -Levemir 22 BID -fingerstick TID AC Diabetic retinopathy -severe -f/u opthalmology outpatient [facility] vs CKD -likely due to dehydration in setting of uncontrolled DM -Creatinine 1.3 (baseline) -stopped IVF Thrombocytopenia -Likely associated with PNA -resolved CHF -stable -hold lasix -Continue Asa, Plavix HTN -Continue Bystolic HLD -Continue Zetia, Lipitor Asthma -stable -duonebs [facility] BPH -Tamsulosin dose increased, still retaining 400 cc post void -insert arguello -f/u with urology outpatient FEN no ivf hypernatremia 152 corrected; monitor DVT GI PPX: SCD, diet, jose maria Dysphagia Pureed, diabetic diet nectar liquids Dispo: monitor in med benjamin Problem List - Problems (1) Acute renal failure Code(s): N17.9 - ACUTE KIDNEY FAILURE, UNSPECIFIED (2) Dehydration Code(s): E86.0 - DEHYDRATION (3) Pneumonia Code(s): J18.9 - PNEUMONIA, UNSPECIFIED ORGANISM (4) Sepsis Code(s): A41.9 - SEPSIS, UNSPECIFIED ORGANISM (5) Weakness Code(s): R53.1 - WEAKNESS (6) Asthma Code(s): J45.909 - UNSPECIFIED ASTHMA, UNCOMPLICATED (7) CAD (coronary artery disease) Code(s): I25.10 - ATHSCL HEART DISEASE OF [place] CORONARY ARTERY W/O ANG PCTRS (8) CKD stage 3 due to type 2 diabetes mellitus Code(s): E11.22 - TYPE 2 DIABETES MELLITUS W DIABETIC CHRONIC KIDNEY DISEASE N18.3 - CHRONIC KIDNEY DISEASE, STAGE 3 (MODERATE) (9) Hyperlipidemia Code(s): E78.5 - HYPERLIPIDEMIA, UNSPECIFIED (10) Hypertension Code(s): I10 - ESSENTIAL (PRIMARY) HYPERTENSION (11) Obesity (BMI 30-39.9) Code(s): E66.9 - OBESITY, UNSPECIFIED (12) Type 2 diabetes mellitus Code(s): E11.9 - TYPE 2 DIABETES MELLITUS WITHOUT COMPLICATIONS (13) Community acquired pneumonia Code(s): J18.9 - PNEUMONIA, UNSPECIFIED ORGANISM Visit type - Emergency Visit Emergency Visit: Yes ED Registration Date: 12/14/16 Care time: The patient presented to the Emergency Department on the above date and was hospitalized for further evaluation of their emergent condition. - New Patient This patient is new to me today: No - Critical Care Critical Care patient: No - Discharge Referral Referred to [facility] No
[2016-12-21] MEDS: NYSTATIN 500,000 UNITS/5 ML SUSPENSION PO SCH ×2 (18:57→23:40)
[2016-12-21] MEDS: NEBIVOLOL 5 MG TABLET (FP) PO SCH (23:40)
[2016-12-21] MEDS: ATORVASTATIN CA 80 MG TABLET (FP) PO SCH (23:40)
[2016-12-22] MEDS: INSULIN SLIDING SCALE (NOVOLOG) 1 VIAL SQ SCH ×6 (02:50→21:40)
[2016-12-22] MEDS ORDERED: DEXTROSE 50%-WATER 50 ML VIAL IVPUSH ONE (02:53)
[2016-12-22] MEDS: ALBUTEROL SO4 2.5/IPRATROPIUM 0.5 INH SOL 3 ML VIAL.NEB. NEB SCH ×5 (06:19→22:02)
[2016-12-22] MEDS: NYSTATIN 500,000 UNITS/5 ML SUSPENSION PO SCH ×3 (06:48→21:39)
[2016-12-22] MEDS: INSULIN DETEMIR 100 UNITS/ML MDV SQ SCH ×2 (06:49→17:56)
[2016-12-22] MEDS: DORZOLAMIDE 2% HCL OPHTHALMIC SOLUTION 10 ML BOTTLE OU SCH ×3 (06:49→21:40)
[2016-12-22 08:08] LABS: CALCIUM 8.7 mg/dL (8.5-10.1); CREATININE 1.1 mg/dL (0.7-1.3)
[2016-12-22] MEDS: TAMSULOSIN HCL 0.4 MG CAP.ER.24H (FP) PO SCH ×2 (12:06→21:39)
[2016-12-22] MEDS: EZETIMIBE 10 MG TABLET (FP) PO SCH (12:06)
[2016-12-22] MEDS: ENOXAPARIN NA (PORCINE) 40 MG/0.4 ML DISP.SYRIN SQ SCH (12:06)
[2016-12-22] MEDS: CLOPIDOGREL BISULFATE 75 MG TABLET (FP) PO SCH (12:06)
[2016-12-22] MEDS: ASPIRIN 81 MG CHEWABLE TABLETS PO SCH (12:06)
[2016-12-22] MEDS: LATANOPROST 0.005% OPHTH SOLN 2.5ML BOTTLE OU SCH (12:10)
[2016-12-22] MEDS ORDERED: INSULIN (NOVOLOG) ASPART 100 UNITS/ML 10ML VIAL ONE (12:23)
--- NOTE | 2016-12-22 13:13 | PN ---
Teaching Attending Note Name of Resident: Felisha Romero ATTENDING PHYSICIAN STATEMENT I saw and evaluated the patient. I reviewed the resident's note and discussed the case with the resident. I agree with the resident's findings and plan as documented. SUBJECTIVE:currently asymptomatic. denies CP, SOB,fever, chills, N/V/C/D OBJECTIVE: Last Vital Signs Temp Pulse Resp BP Pulse Ox 98 F 66 20 124/62 98 12/22/16 08:35 12/22/16 09:54 12/22/16 08:35 12/22/16 08:35 12/22/16 09:54 General NAD CV S1 S2 RRR no murmur/rub/gallop Lungs coarse breath sounds diffusely.crackles B/L bases no wheezing ASSESSMENT AND PLAN: 76yo M with PMH dementia, CKD, HTN, dyslipidemia, DM, CAD presented to the ER and was admitted for further evaluation of their emergent condition 1. Sepsis due to PNA- concerns for aspiration. Completed course of abx here. evaluated by swallow therapist and tolerating puree diet 2. Hyperlgycemia- now improved. concern pt was not getting accurate insulin coverage at home as reports no home insulin but last year was on levemir 22units BID. currently on levemir 22units BID and iss. 3. Hypernatremia-now resolved. 4. Acute on CKD- likely deyhdration and sepsis. now improved 5. urinary retention- flomax dosing increased. arguello removed and voiding freely. will need to f/u with urology as outpatient 6. d/c planning to [facility]. awaiting authorization.
--- NOTE | 2016-12-22 13:23 | PN ---
Physical Exam: SUBJECTIVE: Patient seen and examined Patient resting in bed, in no distress. Afebrile and hemodynamically stable O2 sat 99% on room air. Glucose well controlled. Mental status at baseline. Still weak overall strength 4/5. voiding on his own, full diaper, with residual amount of 100 cc in bladder. He states that he feels well, has less cough, no pain and improved breathing. He denies pelvic pain. He denies h/a, n/v, chest pain, sob, abd pain, diarrhea or dysuria. Discharge is pending acceptance to a rehabilitation facility. OBJECTIVE: Vital Signs Period Temp Pulse Resp BP Sys/Poole Pulse Ox Last 24 Hr 97.7 F-98.4 F 64-77 18-20 115-124/48-62 98-99 GENERAL: Awake, alert oriented but below baseline HEAD: Normal with no signs of trauma. EYES: Sclera anicteric and mildly injected b/l PERRLA EARS, NOSE, THROAT: oropharynx clear without exudates. Moist mucous membranes. NECK: supple without lymphadenopathy, JVD, or masses. LUNGS: diffuse ronchi, mostly coming from upper respiratory area HEART: Regular rate and rhythm, normal S1 and S2 ABDOMEN: Soft, not distended, normoactive bowel sounds, no guarding. No suprapubic tenderness MUSCULOSKELETAL: No CVA tenderness. UPPER EXTREMITIES: 2+ pulses, warm, well perfused, No peripheral edema. LOWER EXTREMITIES: venous stasis discoloration of b/l ankles, trace b/l edema NEUROLOGICAL: weak but more alert Laboratory Results - last 24 hr 12/21/16 12/21/16 12/21/16 15:20 17:13 23:35 Sodium Potassium Chloride Carbon Dioxide Anion Gap BUN Creatinine POC Glucometer 401 311 79 Random Glucose Calcium 12/22/16 12/22/16 12/22/16 02:49 03:46 06:00 Sodium 145 Potassium 4.5 Chloride 110 H Carbon Dioxide 24 Anion Gap 11 BUN 18 D Creatinine 1.1 POC Glucometer 47 148 Random Glucose 123 H D Calcium 8.7 12/22/16 12/22/16 12/22/16 06:46 12:06 12:13 Sodium Potassium Chloride Carbon Dioxide Anion Gap BUN Creatinine POC Glucometer 126 258 267 Random Glucose Calcium Active Medications Generic Name Dose Route Start Last Admin Trade Name Freq PRN Reason Stop Dose Admin Acetaminophen 650 mg 12/14/16 13:15 12/20/16 21:52 Tylenol - PO 650 mg Q4H PRN Administration FEVER OR PAIN Albuterol Sulfate 1 amp 12/17/16 13:23 Ventolin 0.083% Nebulizer Soln - NEB Q4H PRN SHORT OF BREATH/WHEEZING Albuterol/Ipratropium 1 amp 12/15/16 11:10 12/22/16 09:54 Duoneb - NEB 1 amp Q4HWA NEHA Administration Aspirin 81 mg 12/14/16 10:00 12/22/16 12:06 Asa - PO 81 mg DAILY NEHA Administration Atorvastatin Calcium 80 mg 12/14/16 22:00 12/21/16 23:40 Lipitor - PO 80 mg HS NEHA Administration Clopidogrel Bisulfate 75 mg 12/14/16 10:00 12/22/16 12:06 Plavix - PO 75 mg DAILY NEHA Administration Dorzolamide HCl 1 drop 12/14/16 06:00 12/22/16 06:49 Trusopt 2% OU 1 drop TID NEHA Administration Ezetimibe 10 mg 12/14/16 10:00 12/22/16 12:06 Zetia - PO 10 mg DAILY NEHA Administration Enoxaparin Sodium 40 mg 12/17/16 11:30 12/22/16 12:06 Lovenox - SQ 40 mg DAILY NEHA Administration Insulin Aspart 1 vial 12/14/16 06:00 12/22/16 12:09 Novolog Vial Sliding Scale - SQ 6 units Q4HPO NEHA Administration Protocol Insulin Detemir 22 units 12/17/16 10:09 12/22/16 06:49 Levemir Vial SQ 22 units BIDI NEHA Administration Latanoprost 1 drop 12/14/16 10:00 12/21/16 10:22 Xalatan 0.005% Eye Drops - OU 1 drop DAILY NEHA Administration Nebivolol 5 mg 12/14/16 22:00 12/21/16 23:40 Bystolic - PO 5 mg HS NEHA Administration Nystatin 500,000 units 12/21/16 18:00 12/22/16 12:06 Nystatin Oral Suspension - PO 500,000 units Q6HPO NEHA Administration Tamsulosin HCl 0.4 mg 12/19/16 22:00 12/22/16 12:06 Flomax - PO 0.4 mg BID NEHA Administration ASSESSMENT/PLAN: This is a 76 yo M with PMH of CAD, CHF, HLD, HTN, uncontrolled IDDM II, CKD, asthma, BPH and Dementia who is admitted due to CAP: altered mental status, productive cough, fever, urinary frequency/incontinence, hyperglycemia x 3d. Altered mental status due to Sepsis -jaswinder source: RLL Community Acquired Pneumonia -CXR admissin: RLL infiltrate -mental status now baseline -lactic acidosis resolved, mental status at baseline this AM. -finished abx -Tylenol PO PRN -duonebs q4h neha -Speech and Swallow consult: pureed diet -CXR 12/16: patchy infitrates/congestion b/l, bibasilar effusions Hyperglycemia in setting of uncontrolled IDDM -medication noncompliant -Glucose >500 on admission -glucose well controlled -Insulin Sliding scale -Levemir 22 BID -fingerstick TID AC Diabetic retinopathy -severe -f/u opthalmology outpatient [facility] vs CKD -likely due to dehydration in setting of uncontrolled DM -Creatinine at baseline Oral Thrush -nystatin suspension Thrombocytopenia -Likely associated with PNA -resolved CHF -stable -Continue Asa, Plavix HTN -Continue Bystolic HLD -Continue Zetia, Lipitor Asthma -stable -duonebs neha BPH -Tamsulosin dose increased -voiding well, bladder scan post void residual 100cc -f/u with urology outpatient FEN no ivf hypernatremia resolved DVT GI PPX: SCD, diet, jose maria Dysphagia Pureed, diabetic diet nectar liquids Dispo: monitor in [facility], d/c pending insurance approval for rehab Problem List - Problems (1) Acute renal failure Code(s): N17.9 - ACUTE KIDNEY FAILURE, UNSPECIFIED (2) Dehydration Code(s): E86.0 - DEHYDRATION (3) Pneumonia Code(s): J18.9 - PNEUMONIA, UNSPECIFIED ORGANISM (4) Sepsis Code(s): A41.9 - SEPSIS, UNSPECIFIED ORGANISM (5) Weakness Code(s): R53.1 - WEAKNESS (6) Asthma Code(s): J45.909 - UNSPECIFIED ASTHMA, UNCOMPLICATED (7) CAD (coronary artery disease) Code(s): I25.10 - ATHSCL HEART DISEASE OF [place] CORONARY ARTERY W/O ANG PCTRS (8) CKD stage 3 due to type 2 diabetes mellitus Code(s): E11.22 - TYPE 2 DIABETES MELLITUS W DIABETIC CHRONIC KIDNEY DISEASE N18.3 - CHRONIC KIDNEY DISEASE, STAGE 3 (MODERATE) (9) Hyperlipidemia Code(s): E78.5 - HYPERLIPIDEMIA, UNSPECIFIED (10) Hypertension Code(s): I10 - ESSENTIAL (PRIMARY) HYPERTENSION (11) Obesity (BMI 30-39.9) Code(s): E66.9 - OBESITY, UNSPECIFIED (12) Type 2 diabetes mellitus Code(s): E11.9 - TYPE 2 DIABETES MELLITUS WITHOUT COMPLICATIONS (13) Community acquired pneumonia Code(s): J18.9 - PNEUMONIA, UNSPECIFIED ORGANISM Visit type - Emergency Visit Emergency Visit: Yes ED Registration Date: 12/14/16 Care time: The patient presented to the Emergency Department on the above date and was hospitalized for further evaluation of their emergent condition. - New Patient This patient is new to me today: No - Critical Care Critical Care patient: No - Discharge Referral Referred to [facility] No
[2016-12-22] MEDS ORDERED: NYSTATIN POWDER 100,000 UNITS/GM - 15 GM TOPICAL POWDER TP SCH ×2 (16:45)
[2016-12-22] MEDS ORDERED: INSULIN DETEMIR 100 UNITS/ML MDV SQ ONE (18:11)
[2016-12-22] MEDS: ATORVASTATIN CA 80 MG TABLET (FP) PO SCH (21:38)
[2016-12-22] MEDS: NYSTATIN/TRIAMCINOLONE TOPICAL CREAM 15 GM TUBE TP SCH (21:39)
[2016-12-22] MEDS: NEBIVOLOL 5 MG TABLET (FP) PO SCH (21:39)
[2016-12-22] MEDS ORDERED: NYSTATIN/TRIAMCINOLONE TOPICAL CREAM 15 GM TUBE TP SCH (22:00)
[2016-12-23] MEDS: NYSTATIN 500,000 UNITS/5 ML SUSPENSION PO SCH ×4 (01:00→18:55)
[2016-12-23] MEDS: INSULIN SLIDING SCALE (NOVOLOG) 1 VIAL SQ SCH ×6 (06:28→18:54)
[2016-12-23] MEDS: DORZOLAMIDE 2% HCL OPHTHALMIC SOLUTION 10 ML BOTTLE OU SCH ×2 (06:28→14:17)
[2016-12-23] MEDS: INSULIN DETEMIR 100 UNITS/ML MDV SQ SCH ×2 (06:29→17:34)
[2016-12-23] MEDS: ALBUTEROL SO4 2.5/IPRATROPIUM 0.5 INH SOL 3 ML VIAL.NEB. NEB SCH ×4 (06:35→17:20)
[2016-12-23] MEDS ORDERED: INSULIN DETEMIR 100 UNITS/ML MDV SQ ONE (06:50)
[2016-12-23] MEDS: EZETIMIBE 10 MG TABLET (FP) PO SCH (09:58)
[2016-12-23] MEDS: ENOXAPARIN NA (PORCINE) 40 MG/0.4 ML DISP.SYRIN SQ SCH (09:58)
[2016-12-23] MEDS: CLOPIDOGREL BISULFATE 75 MG TABLET (FP) PO SCH (09:59)
[2016-12-23] MEDS: TAMSULOSIN HCL 0.4 MG CAP.ER.24H (FP) PO SCH (09:59)
[2016-12-23] MEDS: ASPIRIN 81 MG CHEWABLE TABLETS PO SCH (09:59)
[2016-12-23] MEDS: NYSTATIN/TRIAMCINOLONE TOPICAL CREAM 15 GM TUBE TP SCH (10:00)
[2016-12-23] MEDS ORDERED: PT OWN MED DRAWER 7, Y5N ONE ×4 (10:06→14:05)
[2016-12-23] MEDS: LATANOPROST 0.005% OPHTH SOLN 2.5ML BOTTLE OU SCH (10:07)
[2016-12-23] MEDS ORDERED: INSULIN (NOVOLOG) ASPART 100 UNITS/ML 10ML VIAL ONE ×2 (13:08→17:25)
--- NOTE | 2016-12-23 15:11 | PN ---
Physical Exam: SUBJECTIVE: Patient seen and examined Patient resting in bed, NAD. Afebrile and hemodynamically stable O2 sat 98% on room air. Glucose well controlled. Mental status at baseline. Still weak overall strength 4/5. voiding on his own. States that he feels well, has less cough, no pain or sob. He denies pelvic pain. He denies h/a, n/v, chest pain, sob, abd pain, diarrhea or dysuria. Discharge is pending acceptance to a rehabilitation facility. has oral, periorbital and groin fold thrush treated with nystatin OBJECTIVE: Vital Signs Period Temp Pulse Resp BP Sys/Poole Pulse Ox Last 24 Hr 97.7 F-98.6 F 57-86 20-20 114-132/56-69 97-98 GENERAL: Awake, alert oriented but below baseline HEAD: Normal with no signs of trauma. EYES: Sclera anicteric and mildly injected b/l PERRLA EARS, NOSE, THROAT: oropharynx clear without exudates. Moist mucous membranes. NECK: supple without lymphadenopathy, JVD, or masses. LUNGS: diffuse ronchi, mostly coming from upper respiratory area HEART: Regular rate and rhythm, normal S1 and S2 ABDOMEN: Soft, not distended, normoactive bowel sounds, no guarding. No suprapubic tenderness MUSCULOSKELETAL: No CVA tenderness. UPPER EXTREMITIES: 2+ pulses, warm, well perfused, No peripheral edema. LOWER EXTREMITIES: venous stasis discoloration of b/l ankles, trace b/l edema NEUROLOGICAL: weak but more alert Laboratory Results - last 24 hr 12/22/16 12/22/16 12/23/16 15:15 20:57 05:56 POC Glucometer 283 276 119 12/23/16 11:54 POC Glucometer 343 Active Medications Generic Name Dose Route Start Last Admin Trade Name Freq PRN Reason Stop Dose Admin Acetaminophen 650 mg 12/14/16 13:15 12/20/16 21:52 Tylenol - PO 650 mg Q4H PRN Administration FEVER OR PAIN Albuterol/Ipratropium 1 amp 12/15/16 11:10 12/23/16 10:10 Duoneb - NEB 1 amp Q4HWA NEHA Administration Aspirin 81 mg 12/14/16 10:00 12/23/16 09:59 Asa - PO 81 mg DAILY NEHA Administration Atorvastatin Calcium 80 mg 12/14/16 22:00 12/22/16 21:38 Lipitor - PO 80 mg HS NEHA Administration Clopidogrel Bisulfate 75 mg 12/14/16 10:00 12/23/16 09:59 Plavix - PO 75 mg DAILY NEHA Administration Dorzolamide HCl 1 drop 12/14/16 06:00 12/23/16 14:17 Trusopt 2% OU 1 drop TID NEHA Administration Ezetimibe 10 mg 12/14/16 10:00 12/23/16 09:58 Zetia - PO 10 mg DAILY NEHA Administration Enoxaparin Sodium 40 mg 12/17/16 11:30 12/23/16 09:58 Lovenox - SQ 40 mg DAILY NEHA Administration Insulin Aspart 1 vial 12/14/16 06:00 12/23/16 12:55 Novolog Vial Sliding Scale - SQ 8 units Q4HPO NEHA Administration Protocol Insulin Detemir 22 units 12/17/16 10:09 12/23/16 06:29 Levemir Vial SQ 22 units BIDI NEHA Administration Latanoprost 1 drop 12/14/16 10:00 12/23/16 10:07 Xalatan 0.005% Eye Drops - OU 1 drop DAILY NEHA Administration Nebivolol 5 mg 12/14/16 22:00 12/22/16 21:39 Bystolic - PO 5 mg HS NEHA Administration Nystatin 500,000 units 12/21/16 18:00 12/23/16 12:56 Nystatin Oral Suspension - PO 500,000 units Q6HPO NEHA Administration Nystatin 1 applic 12/22/16 16:45 12/23/16 09:59 Nystop Powder - TP 1 applic DAILY NEHA Administration Nystatin/Triamcinolone Acetonide 1 applic 12/22/16 22:00 12/23/16 10:00 Mycolog Ii Cream - TP 1 applic BID NEHA Administration Tamsulosin HCl 0.4 mg 12/19/16 22:00 12/23/16 09:59 Flomax - PO 0.4 mg BID NEHA Administration ASSESSMENT/PLAN: This is a 76 yo M with PMH of CAD, CHF, HLD, HTN, uncontrolled IDDM II, CKD, asthma, BPH and Dementia who is admitted due to CAP: altered mental status, productive cough, fever, urinary frequency/incontinence, hyperglycemia x 3d. Altered mental status due to Sepsis -jaswinder source: RLL Community Acquired Pneumonia -CXR admissin: RLL infiltrate -mental status now baseline -lactic acidosis resolved, mental status at baseline this AM. -finished abx -Tylenol PO PRN -duonebs q4h neha -Speech and Swallow consult: pureed diet -CXR 12/16: patchy infitrates/congestion b/l, bibasilar effusions Hyperglycemia in setting of uncontrolled IDDM -medication noncompliant -Glucose >500 on admission -glucose well controlled -Insulin Sliding scale -Levemir 22 BID -fingerstick TID AC Diabetic retinopathy -severe -f/u opthalmology outpatient [facility] vs CKD -likely due to dehydration in setting of uncontrolled DM -Creatinine at baseline Thrush (oral, periorbital, groin folds) -nystatin suspension Thrombocytopenia -Likely associated with PNA -resolved CHF -stable -Continue Asa, Plavix HTN -Continue Bystolic HLD -Continue Zetia, Lipitor Asthma -stable -duonebs neha BPH -Tamsulosin dose increased -voiding well, bladder scan post void residual 100cc -f/u with urology outpatient FEN no ivf hypernatremia resolved DVT GI PPX: SCD, diet, jose maria Dysphagia Pureed, diabetic diet nectar liquids Dispo: monitor in [facility], d/c pending insurance approval for rehab Problem List - Problems (1) Acute renal failure Code(s): N17.9 - ACUTE KIDNEY FAILURE, UNSPECIFIED (2) Dehydration Code(s): E86.0 - DEHYDRATION (3) Pneumonia Code(s): J18.9 - PNEUMONIA, UNSPECIFIED ORGANISM (4) Sepsis Code(s): A41.9 - SEPSIS, UNSPECIFIED ORGANISM (5) Weakness Code(s): R53.1 - WEAKNESS (6) Asthma Code(s): J45.909 - UNSPECIFIED ASTHMA, UNCOMPLICATED (7) CAD (coronary artery disease) Code(s): I25.10 - ATHSCL HEART DISEASE OF [place] CORONARY ARTERY W/O ANG PCTRS (8) CKD stage 3 due to type 2 diabetes mellitus Code(s): E11.22 - TYPE 2 DIABETES MELLITUS W DIABETIC CHRONIC KIDNEY DISEASE N18.3 - CHRONIC KIDNEY DISEASE, STAGE 3 (MODERATE) (9) Hyperlipidemia Code(s): E78.5 - HYPERLIPIDEMIA, UNSPECIFIED (10) Hypertension Code(s): I10 - ESSENTIAL (PRIMARY) HYPERTENSION (11) Obesity (BMI 30-39.9) Code(s): E66.9 - OBESITY, UNSPECIFIED (12) Type 2 diabetes mellitus Code(s): E11.9 - TYPE 2 DIABETES MELLITUS WITHOUT COMPLICATIONS (13) Community acquired pneumonia Code(s): J18.9 - PNEUMONIA, UNSPECIFIED ORGANISM Visit type - Emergency Visit Emergency Visit: Yes ED Registration Date: 12/14/16 Care time: The patient presented to the Emergency Department on the above date and was hospitalized for further evaluation of their emergent condition. - New Patient This patient is new to me today: No - Critical Care Critical Care patient: No - Discharge Referral Referred to [facility] Med [facility].C.: No
--- NOTE | 2016-12-23 15:12 | PN ---
Teaching Attending Note Name of Resident: Felisha Romero ATTENDING PHYSICIAN STATEMENT I saw and evaluated the patient. I reviewed the resident's note and discussed the case with the resident. I agree with the resident's findings and plan as documented. SUBJECTIVE:currently asymptomatic. denies CP, SOB,fever, chills, N/V/C/D OBJECTIVE: Last Vital Signs Temp Pulse Resp BP Pulse Ox 98.2 F 74 20 121/63 97 12/23/16 10:18 12/23/16 11:58 12/23/16 10:18 12/23/16 10:18 12/23/16 11:58 General NAD CV S1 S2 RRR no murmur/rub/gallop Lungs CTA B/L no wheezing/rales/rhonchi ASSESSMENT AND PLAN: 76yo M with PMH dementia, CKD, HTN, dyslipidemia, DM, CAD presented to the ER and was admitted for further evaluation of their emergent condition 1. Sepsis due to PNA- concerns for aspiration. Completed course of abx here. evaluated by swallow therapist and tolerating puree diet 2. Hyperlgycemia- now improved. continue current management. levemir 22 units BID and iss 3. Hypernatremia-now resolved. 4. Acute on CKD- likely deyhdration and sepsis. now improved 5. urinary retention- sp arguello removal and improvement. on flomax. will need to f/u with urology as outpatient 6. d/c planning to [facility]. awaiting authorization.
[2016-12-23 18:30] VITALS: BP 133/58; PULSE 66; TEMP 98
[2016-12-23] MEDS ORDERED: ALBUTEROL SO4 2.5/IPRATROPIUM 0.5 INH SOL 3 ML VIAL.NEB. NEB ONE (22:24)
== END 2016-12-23 21:06 | DRG 871 ==
LOC: JER 23:17 → JERBED 12-14 04:54 → J7W 12-14 15:40
PROVIDERS: ADMIT Internal Medicine; ATTEND Internal Medicine
DX: A41.9 Sepsis, unspecified organism (principal); J18.9 Pneumonia, unspecified organism; G93.41 Metabolic encephalopathy; N17.9 Acute kidney failure, unspecified; I13.0 Hypertensive heart and chronic kidney disease with heart failure and stage 1 through stage 4 chronic kidney disease, or unspecified chronic kidney disease; E87.0 Hyperosmolality and hypernatremia; I25.10 Atherosclerotic heart disease of native coronary artery without angina pectoris; F03.90 Unspecified dementia, unspecified severity, without behavioral disturbance, psychotic disturbance, mood disturbance, and anxiety; E78.5 Hyperlipidemia, unspecified; E11.22 Type 2 diabetes mellitus with diabetic chronic kidney disease; I12.9 Hypertensive chronic kidney disease with stage 1 through stage 4 chronic kidney disease, or unspecified chronic kidney disease; J45.909 Unspecified asthma, uncomplicated; D69.6 Thrombocytopenia, unspecified; I50.9 Heart failure, unspecified; Z95.1 Presence of aortocoronary bypass graft; N40.0 Benign prostatic hyperplasia without lower urinary tract symptoms; E11.65 Type 2 diabetes mellitus with hyperglycemia; E11.319 Type 2 diabetes mellitus with unspecified diabetic retinopathy without macular edema; E86.0 Dehydration; N18.3 Chronic kidney disease, stage 3 (moderate); E66.9 Obesity, unspecified; Z68.35 Body mass index [BMI] 35.0-35.9, adult; R33.9 Retention of urine, unspecified; Z79.4 Long term (current) use of insulin
CPT/HCPCS: 36415; 71010-TC; 80048; 80053; 81003; 81015; 82550; 82947; 83036; 83605; 83735; 84100; 84484; 85025; 85027; 85610; 87040; 87086; 87804; 93005; 93010; 94010; 94640; 97116-GP; 97161-GP; 99284-25; 99285-25

== ENCOUNTER 2017-05-08 08:24 | Emergency (ER) | payer OTHER ==
--- NOTE | 2017-05-08 08:35 | PDOC ---
History of Present Illness - General History Source: Patient, Spouse, Old Records Exam Limitations: No Limitations - History of Present Illness Initial Comments: 05/08/17 08:35 The patient is a 76-year-old man, accompanied by his , with a significant past medical history of hypertension, hypercholesterolemia, coronary artery disease status post CABG, diabetes mellitus, asthma and chronic kidney disease who presents to the emergency department via EMS for hypoglycemia. As per patients , the patient has not eaten today. She routinely checked his blood sugar and reports a blood glucose measurement at home of 42. HPI is limited, patient's is a poor historian. Allergies: No Known Drug Allergies. Past Surgical History: Right hip ORIF. CABG Social History: No tobacco, EtOH and recreational drug use. Primary Care Physician: Dr. Prema Fiore <Sarah Rodriguez - Last Filed: 05/08/17 12:56> <Ivy Regan - Last Filed: 05/08/17 15:59> - General Chief Complaint: Blood Sugar Problem Stated Complaint: DIABETIC Time Seen by Provider: 05/08/17 08:35 Past History <Sarah Rodriguez - Last Filed: 05/08/17 12:56> - Past Medical History Anemia: No Asthma: Yes Cancer: No Cardiac Disorders: Yes (cabg) CVA: No COPD: No CHF: No Dementia: No Diabetes: Yes GI Disorders: No Disorders: No HTN: Yes Hypercholesterolemia: Yes Liver Disease: No Suicide Attempt (Hx): No Seizures: No Thyroid Disease: No - Surgical History Abdominal Surgery: No Appendectomy: No Cardiac Surgery: Yes (') Cholecystectomy: No Lung Surgery: No Neurologic Surgery: No Orthopedic Surgery: No (rt hip orif) - Immunization History Immunization Up to Date: Yes - Psycho/Social/Smoking Cessation Hx Anxiety: No Suicidal Ideation: No Smoking Status: No Smoking History: Never smoked Have you smoked in the past 12 months: No Number of Cigarettes Smoked Daily: 0 If you are a former smoker, when did you quit?: '96 Hx Alcohol Use: No Drug/Substance Use Hx: No Substance Use Type: None Hx Substance Use Treatment: No <Ivy Regan - Last Filed: 05/08/17 15:59> - Past Medical History Allergies/Adverse Reactions: Allergies Allergy/AdvReac Type Severity Reaction Status Date / Time No Known Allergies Allergy Verified 05/08/17 08:49 Home Medications: Ambulatory Orders Clopidogrel Bisulfate [Plavix -] 75 mg PO DAILY 02/26/12 Nebivolol HCl [Bystolic] 5 mg PO HS 06/23/14 Aspirin [ASA -] 81 mg PO DAILY 12/14/16 Atorvastatin Ca [Lipitor] 80 mg PO HS 12/14/16 Bimatoprost [Lumigan] 1 drop IO DAILY 12/14/16 Cyanocobalamin [Vitamin B12 -] 1,000 mcg PO DAILY 12/14/16 Dorzolamide HCl [Trusopt 2% -] 1 drop OU TID 12/14/16 Ezetimibe [Zetia] 10 mg PO DAILY 12/14/16 Insulin (Levemir) [Levemir Vial] 22 units SQ BIDI #10 ml 12/20/16 Insulin Sliding Scale [Novolog Vial Sliding Scale -] 1 vial SQ Q4HPO #10 units 12/20/16 Tamsulosin HCl [Flomax -] 0.4 mg PO BID #120 cap.er.24h 12/20/16 Furosemide [Lasix -] 40 mg PO DAILY #60 tablet 12/21/16 Memantine HCl 1 tab PO BID 05/08/17 Review of Systems - Review of Systems Able to Perform ROS?: Yes Comments:: 05/08/17 08:36 GENERAL/CONSTITUTIONAL: No fever or chills. No weakness. CARDIOVASCULAR: No chest pain or shortness of breath. RESPIRATORY: No cough, wheezing, or hemoptysis. GASTROINTESTINAL: No nausea, vomiting, diarrhea or constipation. NEUROLOGIC: No headache, vertigo, loss of consciousness, or change in strength/ sensation. ENDOCRINE: Yes: Hypoglycemic. No increased thirst. No abnormal weight change. HEMATOLOGIC/LYMPHATIC: No anemia, easy bleeding, or history of blood clots. ALLERGIC/IMMUNOLOGIC: No hives or skin allergy. <Sarah Rodriguez - Last Filed: 05/08/17 12:56> *Physical Exam - Physical Exam Comments: GENERAL: Sleeping, awakens to voice. HEAD: No signs of trauma EYES: PERRLA, EOMI, sclera anicteric, conjunctiva clear ENT: Auricles normal inspection, hearing grossly normal, nares patent, oropharynx clear without exudates. Dry mucosa NECK: Normal ROM, supple, no lymphadenopathy, JVD, or masses LUNGS: Breath sounds equal, clear to auscultation bilaterally. No wheezes, and no crackles HEART: Regular rate and rhythm, normal S1 and S2, no murmurs, rubs or gallops ABDOMEN: Soft, nontender, normoactive bowel sounds. No guarding, no rebound. No masses EXTREMITIES: Normal range of motion, no edema. No clubbing or cyanosis. No cords, erythema, or tenderness NEUROLOGICAL: Limited by mental status. SKIN: Warm, Dry, normal turgor, no rashes or lesions noted. <Ivy Regan - Last Filed: 05/08/17 15:59> ED Treatment Course - LABORATORY CBC & Chemistry Diagram: 05/08/17 09:10 05/08/17 09:10 <Sarah Rodriguez - Last Filed: 05/08/17 12:56> - LABORATORY CBC & Chemistry Diagram: 05/08/17 09:10 05/08/17 09:10 <Ivy Regan - Last Filed: 05/08/17 15:59> Medical Decision Making - Medical Decision Making 05/08/17 15:57 Pt observed in ED while awaiting remainder of results and the UA. No further episodes of hypoglycemia. No signs of any infection. Stable for DC home. <Ivy Regan - Last Filed: 05/08/17 15:59> *DC/Admit/Observation/Transfer - Attestations Scribe Attestion: 05/08/17 08:36 Documentation prepared by Sarah Rodriguez, acting as medical technologist chief for Ivy Regan MD. <Sarah Rodriguez - Last Filed: 05/08/17 12:56> - Discharge Dispostion Admit: No <Ivy Regan - Last Filed: 05/08/17 15:59> Diagnosis at time of Disposition: Hypoglycemia - Discharge Dispostion Disposition: HOME Condition at time of disposition: Stable - Referrals Referrals: Erwin Lund MD [Primary Care Provider] - - Patient Instructions Printed Discharge Instructions: DI for Hypoglycemia
[2017-05-08 08:49] VITALS: TEMP 97.1; BMI 39.0
[2017-05-08 09:21] LABS: BASOPHIL 0.7 % (0-2.0); EOSINOPHIL 1.8 % (0-4.5); MCH 29.7 pg (25.7-33.7); MCHC 33.7 g/dl (32.0-35.9); MEAN PLT VOLUME 9.6 fl (7.5-11.1); NEUTROPHILS 74.8 % (42.8-82.8); PLATELET COUNT 92 K/MM3 (134-434); RDW 14.4 % (11.9-15.9); WHITE BLOOD COUNT 8.6 K/mm3 (4.0-10.0)
[2017-05-08 09:52] LABS: ALBUMIN 3.5 g/dl (3.4-5.0); BILIRUBIN,TOTAL 0.4 mg/dL (0.2-1.0); CALCIUM 8.9 mg/dL (8.5-10.1); COCKROFT - GAULT 57.59; CREATININE 1.4 mg/dL (0.7-1.3); TOT PROT 6.6 g/dl (6.4-8.2)
[2017-05-08 12:02] VITALS: BP 161/97; PULSE 58
--- NOTE | 2017-05-08 14:02 | EKG ---
Test Reason : Blood Pressure : / mmHG Vent. Rate : 056 BPM Atrial Rate : 056 BPM P-R Int : 164 ms QRS Dur : 090 ms QT Int : 452 ms P-R-T Axes : 026 051 058 degrees QTc Int : 436 ms SINUS BRADYCARDIA OTHERWISE NORMAL ECG WHEN COMPARED WITH ECG OF 14-DEC-2016 00:20, VENT. RATE HAS DECREASED BY 28 BPM Confirmed by VAUGHN GUTIERREZ MD ([id number]) on 05/08/2017 2:02:23 PM Referred By: Confirmed By:VAUGHN GUTIERREZ MD
[2017-05-08 15:44] LABS: URINE APPEARANCE CLEAR; URINE BILIRUBIN NEGATIVE (NEGATIVE); URINE BLOOD NEGATIVE (NEGATIVE); URINE COLOR STRAW; URINE GLUCOSE (UA) 3+ (NEGATIVE); URINE KETONE NEGATIVE (NEGATIVE); URINE LEUK ESTERASE NEGATIVE (NEGATIVE); URINE NITRITE NEGATIVE (NEGATIVE); URINE PROTEIN NEGATIVE (NEGATIVE); URINE UROBILINOGEN NEGATIVE E.U./dl (0.2-1.0)
== END 2017-05-08 16:24 | disposition home or self-care (01) ==
LOC: JER 08:24
DX: E16.2 Hypoglycemia, unspecified (principal); I12.9 Hypertensive chronic kidney disease with stage 1 through stage 4 chronic kidney disease, or unspecified chronic kidney disease; E11.22 Type 2 diabetes mellitus with diabetic chronic kidney disease; N18.9 Chronic kidney disease, unspecified; Z79.4 Long term (current) use of insulin; E78.00 Pure hypercholesterolemia, unspecified; I25.10 Atherosclerotic heart disease of native coronary artery without angina pectoris; Z95.1 Presence of aortocoronary bypass graft; J45.909 Unspecified asthma, uncomplicated; Z79.82 Long term (current) use of aspirin
CPT/HCPCS: 36415; 71010-TC; 80053; 81003; 83036; 85025; 93005; 93010; 99284-25

== ENCOUNTER 2018-10-21 12:21 | Emergency (ER) | payer OTHER ==
--- NOTE | 2018-10-21 12:24 | PDOC ---
History of Present Illness - General Chief Complaint: Blood Sugar Problem Stated Complaint: LOW BLOOD SUGAR Time Seen by Provider: 10/21/18 12:24 History Source: Patient, Family Exam Limitations: Dementia - History of Present Illness Initial Comments: 10/21/18 12:56 HPI/ROS/PE performed with pt's son because pt has dementia. 78 year old male with PMH DM on Vgo insulin pump and Tresiba at night, HTN, HLD , CAD, CABG (20+ years ago), CKD, asthma, urinary incontinence, BPH presented to ED for hypoglycemia. Per son pt was at [employer] and became less verbally responsive, he checked his insulin pump, and discovered he had two pumps on instead of one. Son immediately removed both pumps and called EMS. When EMS arrived blood sugar was in the 30s, pt was given glucagon. Upon arrival to ED pt 's blood sugar was 201. Pt and son reported no chest pain, no palpitations, no shortness of breath, no abdominal pain or any other symptoms. Past History - Past Medical History Allergies/Adverse Reactions: Allergies Allergy/AdvReac Type Severity Reaction Status Date / Time No Known Allergies Allergy Verified 05/08/17 08:49 Home Medications: Ambulatory Orders Clopidogrel Bisulfate [Plavix -] 75 mg PO DAILY 02/26/12 Nebivolol HCl [Bystolic] 5 mg PO HS 06/23/14 Aspirin [ASA -] 81 mg PO DAILY 12/14/16 Atorvastatin Ca [Lipitor] 80 mg PO HS 12/14/16 Bimatoprost [Lumigan] 1 drop IO DAILY 12/14/16 Cyanocobalamin [Vitamin B12 -] 1,000 mcg PO DAILY 12/14/16 Dorzolamide HCl [Trusopt 2% -] 1 drop OU TID 12/14/16 Ezetimibe [Zetia] 10 mg PO DAILY 12/14/16 Insulin (Levemir) [Levemir Vial] 22 units SQ BIDI #10 ml 12/20/16 Insulin Sliding Scale [Novolog Vial Sliding Scale -] 1 vial SQ Q4HPO #10 units 12/20/16 Tamsulosin HCl [Flomax -] 0.4 mg PO BID #120 cap.er.24h 12/20/16 Furosemide [Lasix -] 40 mg PO DAILY #60 tablet 12/21/16 Memantine HCl 1 tab PO BID 05/08/17 Anemia: No Asthma: Yes Cancer: No Cardiac Disorders: Yes (cabg) CVA: No COPD: No CHF: No Dementia: No Diabetes: Yes GI Disorders: No Disorders: No HTN: Yes Hypercholesterolemia: Yes Liver Disease: No Seizures: No Thyroid Disease: No - Surgical History Abdominal Surgery: No Appendectomy: No Cardiac Surgery: Yes () Cholecystectomy: No Lung Surgery: No Neurologic Surgery: No Orthopedic Surgery: No (rt hip orif) - Immunization History Immunization Up to Date: Yes - Suicide/Smoking/Psychosocial Hx Smoking Status: No Smoking History: Never smoked Have you smoked in the past 12 months: No Number of Cigarettes Smoked Daily: 0 If you are a former smoker, when did you quit?: Hx Alcohol Use: No Drug/Substance Use Hx: No Substance Use Type: None Hx Substance Use Treatment: No Review of Systems - Review of Systems Able to Perform ROS?: Yes Comments:: 10/21/18 12:58 General: denied fever, chills, night sweats, generalized weakness. HEENT: denied sore throat, rhinorrhea, ear pain. Heart: denied chest pain, palpitations, syncope, lower extremity swelling, diaphoresis. Respiratory: denied shortness of breath, cough, sputum production, hemoptysis. Abdomen: denied abdominal pain, nausea, vomiting, diarrhea, constipation, blood in stool. : denied dysuria, increased urinary frequency, hematuria, urinary incontinence , flank pain. Back: denied back pain. Musculoskeletal: denied joint pain, muscle pain, joint swelling. Neurological: admitted to [facility]. denied headache, dizziness, numbness, tingling, weakness. Skin: denied rash, laceration, abrasion. *Physical Exam - Physical Exam Comments: 10/21/18 12:59 Constitutional: Well-nourished, Well-developed, appearing stated age. HEENT: head is normocephalic, atraumatic. EOMI. PERRLA. Neck: supple. Full ROM. Heart: regular rhythm. no murmurs, rubs or gallops. Lungs: clear to auscultation bilaterally. no crackles, rhonchi or wheezing. no stridor. Abdomen: soft, nontender. normal bowel sounds. no rebound, guarding, masses. Extremities: Peripheral pulses intact. No lower extremity edema. Neurological: CN 2-12 grossly intact. Moves all four extremities. Psych: awake, alert. orientedx0. Follows commands but requires repetitive instruction. combative. ED Treatment Course - LABORATORY CBC & Chemistry Diagram: 10/21/18 13:15 10/21/18 13:15 Medical Decision Making - Medical Decision Making 10/21/18 12:59 78 year old male with PMH DM on long acting insulin at night and insulin pump, urinary incontience, BPH, CAD, CABG, HLD, HTN was discovered to have on two pumps instead of one with a blood sugar in the 30s. Pt was given glucagon by EMS , blood sugar 201 here in ED. Pt awake, alert, back to mental baseline per son. Initial Vital Signs Temp Pulse Resp BP Pulse Ox 97.8 F 67 16 129/69 100 10/21/18 12:24 10/21/18 12:24 10/21/18 12:24 10/21/18 12:24 10/21/18 12:24 Pending CBC, CMP. Pt will be observed with glucose checks. EKG performed at 1339, poor quality, pt would not remain still: rate 65, regular rhythm, normal axis, normal intervals, nonspecific ST changes. Similar to prior 05/08/2017. 10/21/18 13:13 Son now reports he believes over the last week the patient's lower abdomen is getting larger, and that he has been slightly more confused than usual. UA/UC ordered. Son given urinal. 10/21/18 14:07 CBC WBC 16.2 K/mm3 (4.0-10.0) H 10/21/18 13:15 RBC 4.21 M/mm3 (4.00-5.60) 10/21/18 13:15 Hgb 12.8 GM/dL (11.7-16.9) 10/21/18 13:15 Hct 37.3 % (35.4-49) 10/21/18 13:15 MCV 88.6 fl (80-96) 10/21/18 13:15 MCH 30.3 pg (25.7-33.7) 10/21/18 13:15 MCHC 34.2 g/dl (32.0-35.9) 10/21/18 13:15 RDW 13.3 % (11.9-15.9) 10/21/18 13:15 Plt Count 148 K/MM3 (134-434) D 10/21/18 13:15 MPV 9.8 fl (7.5-11.1) 10/21/18 13:15 Absolute Neuts (auto) 13.5 K/mm3 (1.5-8.0) H 10/21/18 13:15 Neutrophils % 83.6 % (42.8-82.8) H 10/21/18 13:15 Lymphocytes % 6.2 % (8-40) L D 10/21/18 13:15 Monocytes % 9.2 % (3.8-10.2) 10/21/18 13:15 Eosinophils % 0.5 % (0-4.5) 10/21/18 13:15 Basophils % 0.5 % (0-2.0) 10/21/18 13:15 Nucleated RBC % 0 % (0-0) 10/21/18 13:15 Leukocytosis. CMP Sodium 138 mmol/L (136-145) 10/21/18 13:15 Potassium 4.0 mmol/L (3.5-5.1) 10/21/18 13:15 Chloride 104 mmol/L (98-107) 10/21/18 13:15 Carbon Dioxide 25 mmol/L (21-32) 10/21/18 13:15 Anion Gap 8 MMOL/L (8-16) 10/21/18 13:15 BUN 28 mg/dL (7-18) H 10/21/18 13:15 Creatinine 1.4 mg/dL (0.55-1.3) H 10/21/18 13:15 Creat Clearance w eGFR 49.01 (>60) 10/21/18 13:15 POC Glucometer 201.89860 UNITS (80-120) 10/21/18 12:30 Random Glucose 134 mg/dL (74-106) H 10/21/18 13:15 Calcium 9.0 mg/dL (8.5-10.1) 10/21/18 13:15 Total Bilirubin 0.3 mg/dL (0.2-1) 10/21/18 13:15 AST 33 U/L (15-37) 10/21/18 13:15 ALT 21 U/L (13-61) 10/21/18 13:15 Alkaline Phosphatase 117 U/L (45-117) 10/21/18 13:15 Total Protein 6.7 g/dl (6.4-8.2) 10/21/18 13:15 Albumin 3.3 g/dl (3.4-5.0) L 10/21/18 13:15 Cr 1.4, at baseline, hx CKD. 10/21/18 14:21 Bedside bladder ultrasound performed: 175cc Will repeat after urination. 10/21/18 14:26 Finger stick 215 10/21/18 14:41 Pt voided. Post void residual by bedside bladder ultrasound: 126cc Pt has known urinary incontinence. 10/21/18 15:43 Urine Test Results Urine Color Yellow 10/21/18 14:35 Urine Appearance Slcloudy 10/21/18 14:35 Urine pH 5.0 (5.0-8.0) 10/21/18 14:35 Ur Specific [place] 1.016 (1.010-1.035) 10/21/18 14:35 Urine Protein Negative (NEGATIVE) 10/21/18 14:35 Urine Glucose (UA) 2+ (NEGATIVE) H 10/21/18 14:35 Urine Ketones Negative (NEGATIVE) 10/21/18 14:35 Urine Blood Negative (NEGATIVE) 10/21/18 14:35 Urine Nitrite Negative (NEGATIVE) 10/21/18 14:35 Urine Bilirubin Negative (<2.0 mg/dL) 10/21/18 14:35 Ur Leukocyte Esterase Negative (NEGATIVE) 10/21/18 14:35 No evidence of UTI. 10/21/18 16:05 Fingersitck 310. Pt discharged with instructions for PCP follow up and told to not apply two insulin pumps at the same time. *DC/Admit/Observation/Transfer Diagnosis at time of Disposition: Hypoglycemia - Discharge Dispostion Disposition: HOME Condition at time of disposition: Improved Decision to Admit order: No - Referrals Referrals: Brennan De La Rosa MD [Primary Care Provider] - - Patient Instructions Printed Discharge Instructions: DI for Hypoglycemia, How to Use an Insulin Pump Additional Instructions: You were seen today for low blood sugar. Your lab work showed an elevated white blood cell count, and elevated creatinine (kidney test) that was the same as prior testing. The isolated increased white blood cell count is not an emergent finding at this time. Your urine analysis was normal, there is no urinary tract infection. Do not place two insulin pumps instead of one. Your blood sugar level was not low when it was checked three times in the Emergency Department. Follow up with your primary care doctor in 1-2 days. Return to the Emergency Department for chest pain, shortness of breath, altered mental status, decreased responsiveness, fever or any other new, worsening or concerning symptoms. - Post Discharge Activity
[2018-10-21 12:27] VITALS: BP 129/69; PULSE 67; TEMP 97.8; BMI 31.2
[2018-10-21] MEDS ORDERED: GlUCAGON HUMAN RECOMBINANT 1 MG/VIAL ONE ×2 (12:31→12:32)
[2018-10-21 13:24] LABS: BASO % 0.5 % (0-2.0); EOS % 0.5 % (0-4.5); HEMATOCRIT 37.3 % (35.4-49); HEMOGLOBIN 12.8 GM/dL (11.7-16.9); LYMPH % 6.2 % (8-40); MCH 30.3 pg (25.7-33.7); MCHC 34.2 g/dl (32.0-35.9); MEAN CELL VOLUME 88.6 fl (80-96); MEAN PLT VOLUME 9.8 fl (7.5-11.1); MONO % 9.2 % (3.8-10.2); NEUT % 83.6 % (42.8-82.8); PLATELET COUNT 148 K/MM3 (134-434); RBC 4.21 M/mm3 (4.00-5.60); RDW 13.3 % (11.9-15.9); WHITE BLOOD COUNT 16.2 K/mm3 (4.0-10.0)
--- NOTE | 2018-10-21 13:32 | PDOC ---
Attending Attestation - Resident Resident Name: Wendi Evangelista - ED Attending Attestation I have performed the following: I have examined & evaluated the patient, The case was reviewed & discussed with the resident, I agree w/resident's findings & plan, Exceptions are as noted - HPI HPI: 10/21/18 13:35 The patient is a 78 year old male with a past medical history of diabetes mellitus (uses insulin pump and tresiba), HTN, HLD, CAD, CABG, CKD, and asthma presenting to ED with episode of unresponsiveness. Pt's family states that pt was in [employer] when he became very sleepy and difficult to arouse. They suspected his sugar was low because this has happened in the past. They checked his fingerstick and found it to be 33. EMS was then activated. Pt was given glucose paste by family and IM glucagon by EMS, with subsequent return to baseline mental status. Son notes that they discovered 2 V-Go insulin pumps on the pt after this episode. The extra pump has since been removed. Patient denies headache, lightheadedness. Denies fever, chills. Denies chest pain, shortness of breath. Denies nausea, vomiting, diarrhea, abdominal pain. Denies lower extremity edema. Denies urinary symptoms. Allergies: NKA Social history: denies alcohol, tobacco, drug use PCP: Brennan De La Rosa - Physicial Exam PE: 10/21/18 13:26 GENERAL: Awake, alert, in no acute distress. HEAD: No signs of trauma EYES: PERRLA, EOMI, sclera anicteric, conjunctiva clear ENT: Auricles normal inspection, hearing grossly normal, nares patent, oropharynx clear without exudates. Moist mucosa NECK: Nontender, no stepoffs, Normal ROM, supple, no lymphadenopathy, JVD, or masses LUNGS: Breath sounds equal, clear to auscultation bilaterally. No wheezes, and no crackles HEART: Regular rate and rhythm, normal S1 and S2, no murmurs, rubs or gallops ABDOMEN: Soft, nontender, normoactive bowel sounds. No guarding, no rebound. No masses EXTREMITIES: Normal range of motion, no edema. No clubbing or cyanosis. No cords, erythema, or tenderness NEUROLOGICAL: Cranial nerves II through XII intact. 5/5 strength and sensation in all extremities, Normal speech, normal gait, normal cerebellar function SKIN: Warm, Dry, normal turgor, no rashes or lesions noted. - Medical Decision Making 10/21/18 13:27 78 M with hypoglycemic episode today, likely 2/2 insulin overdose after inadvertently putting two pumps on. Pt now with stable sugars after removal of one pump. Will check labs to r/o metabolic derangement. - Labs, UA - Q1hr fingersticks 10/21/18 15:47 labs unremarkable. WBC 16 but no fevers or other signs of infection. UA wnl Repeat fingerstick normal Pt is well appearing, with normal vitals. Clinically stable for DC at this time. I discussed the physical exam findings, ancillary test results and final diagnoses with the patient. I answered all of the patient's questions. The patient was satisfied with the care received and felt comfortable with the discharge plan and treatment plan. The patient agrees to follow up with the primary care physician within 24-72 hours.
[2018-10-21 14:05] LABS: ALBUMIN 3.3 g/dl (3.4-5.0); ALK PHOS 117 U/L (45-117); ANION GAP 8 MMOL/L (8-16); BILIRUBIN,TOTAL 0.3 mg/dL (0.2-1); BLOOD UREA NITROGEN 28 mg/dL (7-18); CHLORIDE 104 mmol/L (98-107); CO2 25 mmol/L (21-32); CREATININE 1.4 mg/dL (0.55-1.3); GLUCOSE,RANDOM 134 mg/dL (74-106); SGOT/AST 33 U/L (15-37); SGPT/ALT 21 U/L (13-61); SODIUM 138 mmol/L (136-145); TOT PROT 6.7 g/dl (6.4-8.2)
[2018-10-21 14:58] LABS: URINE APPEARANCE SLCLOUDY; URINE BILIRUBIN NEGATIVE (<2.0 mg/dL); URINE COLOR YELLOW; URINE GLUCOSE (UA) 2+ (NEGATIVE); URINE KETONE NEGATIVE (NEGATIVE); URINE LEUK ESTERASE NEGATIVE (NEGATIVE); URINE NITRITE NEGATIVE (NEGATIVE); URINE PROTEIN NEGATIVE (NEGATIVE); URINE UROBILINOGEN NEGATIVE mg/dL (0.2-1.0)
--- NOTE | 2018-10-22 10:58 | EKG ---
Test Reason : Blood Pressure : / mmHG Vent. Rate : 065 BPM Atrial Rate : 065 BPM P-R Int : 146 ms QRS Dur : 092 ms QT Int : 450 ms P-R-T Axes : 058 036 079 degrees QTc Int : 468 ms NORMAL SINUS RHYTHM POSSIBLE INFERIOR INFARCT , AGE UNDETERMINED ABNORMAL ECG WHEN COMPARED WITH ECG OF 08-MAY-2017 08:54, T WAVE VARIATION Confirmed by VAUGHN GUTIERREZ MD ([id number]) on 10/22/2018 10:58:26 AM Referred By: Confirmed By:VAUGHN GUTIERREZ MD
== END 2018-10-21 16:15 | disposition home or self-care (01) ==
LOC: JER 12:21
PROC: BT40ZZZ Ultrasonography of Bladder (ICD-10-PCS; principal; 2018-10-21)
DX: E09.649 Drug or chemical induced diabetes mellitus with hypoglycemia without coma (principal); T38.3X5A Adverse effect of insulin and oral hypoglycemic [antidiabetic] drugs, initial encounter; Y92.22 Religious institution as the place of occurrence of the external cause; Z96.41 Presence of insulin pump (external) (internal); Z79.4 Long term (current) use of insulin; I25.10 Atherosclerotic heart disease of native coronary artery without angina pectoris; I13.10 Hypertensive heart and chronic kidney disease without heart failure, with stage 1 through stage 4 chronic kidney disease, or unspecified chronic kidney disease; N18.3 Chronic kidney disease, stage 3 (moderate); Z95.1 Presence of aortocoronary bypass graft; E78.5 Hyperlipidemia, unspecified; J45.909 Unspecified asthma, uncomplicated; N40.1 Benign prostatic hyperplasia with lower urinary tract symptoms; R32 Unspecified urinary incontinence; D72.829 Elevated white blood cell count, unspecified
CPT/HCPCS: 36415; 80053; 81003; 82962; 85025; 87086; 93005; 93010; 99282-25

== ENCOUNTER 2019-01-11 11:44 | Emergency (ER) | payer OTHER ==
--- NOTE | 2019-01-11 12:25 | PDOC ---
History of Present Illness - General Chief Complaint: Blood Sugar Problem Stated Complaint: DIABETIC Time Seen by Provider: 01/11/19 12:07 History Source: Patient, Family, Old Records Exam Limitations: No Limitations - History of Present Illness Initial Comments: HPI: 78 y/o male BIB[facility]S to [facility] ER for symptomatic hypoglycemia. Pt was found to be solument and tachypneic by this morning after pts [id number] placed his new disposable insulin pump. Per EMS report, pt was found to be hypoglycemic to 30s. BGL improved to 120s after administration of one amp of D50. Pt became more alert after administration. reports the pt was in usual state of health until this episode. Pt was evaluated in this department for similar symptoms on 21 Oct 2018. Was found to have two Tresiba pods on his body. Tresiba, adjustable flex pods, Furosemide 40mg daily Sodium Chloride 0.9% ampule Albuterol sulfate 0.2% ampule PCP: Dr. 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 Past History - Past Medical History Allergies/Adverse Reactions: Allergies Allergy/AdvReac Type Severity Reaction Status Date / Time No Known Allergies Allergy Verified 01/11/19 11:57 Home Medications: Ambulatory Orders Clopidogrel Bisulfate [Plavix -] 75 mg PO DAILY 02/26/12 Nebivolol HCl [Bystolic] 5 mg PO HS 06/23/14 Aspirin [ASA -] 81 mg PO DAILY 12/14/16 Atorvastatin Ca [Lipitor] 80 mg PO HS 12/14/16 Bimatoprost [Lumigan] 1 drop IO DAILY 12/14/16 Cyanocobalamin [Vitamin B12 -] 1,000 mcg PO DAILY 12/14/16 Dorzolamide HCl [Trusopt 2% -] 1 drop OU TID 12/14/16 Ezetimibe [Zetia] 10 mg PO DAILY 12/14/16 Insulin (Levemir) [Levemir Vial] 22 units SQ BIDI #10 ml 12/20/16 Insulin Sliding Scale [Novolog Vial Sliding Scale -] 1 vial SQ Q4HPO #10 units 12/20/16 Tamsulosin HCl [Flomax -] 0.4 mg PO BID #120 cap.er.24h 12/20/16 Furosemide [Lasix -] 40 mg PO DAILY #60 tablet 12/21/16 Memantine HCl 1 tab PO BID 05/08/17 Anemia: No Asthma: Yes Cancer: No Cardiac Disorders: Yes (cabg) CVA: No COPD: No CHF: No Dementia: No Diabetes: Yes GI Disorders: No Disorders: No HTN: Yes Hypercholesterolemia: Yes Liver Disease: No Seizures: No Thyroid Disease: No - Surgical History Abdominal Surgery: No Appendectomy: No Cardiac Surgery: Yes () Cholecystectomy: No Lung Surgery: No Neurologic Surgery: No Orthopedic Surgery: No (rt hip orif) - Immunization History Immunization Up to Date: Yes - Suicide/Smoking/Psychosocial Hx Smoking Status: No Smoking History: Never smoked Have you smoked in the past 12 months: No Number of Cigarettes Smoked Daily: 0 If you are a former smoker, when did you quit?: Hx Alcohol Use: No Drug/Substance Use Hx: No Substance Use Type: None Hx Substance Use Treatment: No Review of Systems - Review of Systems Able to Perform ROS?: Yes Comments:: In addition to that documented in the HPI above, the additional ROS was obtained : Constitutional: Denies fevers or chills Eyes: Denies vision changes ENMT: Denies sore throat CV: Denies chest pain Resp: Denies SOB GI: Denies vomiting or diarrhea : Denies painful urination MSK: Denies recent trauma Skin: Denies new rashes Neuro: Denies new numbness or tingling or weakness Endocrine: Denies polyuria Heme: Denies bleeding or bruising *Physical Exam - Vital Signs Last Vital Signs Temp Pulse Resp BP Pulse Ox 96.1 F L 89 18 126/76 98 01/11/19 11:57 01/11/19 11:57 01/11/19 11:57 01/11/19 11:57 01/11/19 11:57 - Physical Exam Comments: Constitutional: Non-toxic, adult male in no acute distress or obvious discomfort. Found semi-fowlers on hospital bed. Alert and oriented x4. Answered all questions appropriately and completely. Speech was non-labored, non- pressured. Head: Normocephalic. No obvious external signs of trauma. Ears: Hearing grossly intact. Nose: No nasal discharge. Neck: Supple, trachea is midline. Cardiovascular / Chest: Regular rate and regular rhythm. No murmur, rubs, clicks, or gallops. Peripheral pulses: radial pulses full. Respiratory: Breathing unlabored. Equal chest rise and fall. Trace expiratory wheezing without stridor or rhonchi. Gastrointestinal: abdomen is soft, non-tender, non-distended. Neuro: Alert and oriented. Moving all four extremities spontaneously. Skin: Warm, dry, and intact. Single insulin pod on left upper arm and single insulin pod on right upper arm. Psych: Affect: appropriate. Mood: normal. Moderate Sedation - Procedure Monitoring Vital Signs: Procedure Monitoring Vital Signs Temperature 96.1 F L 01/11/19 11:57 Pulse Rate 89 01/11/19 11:57 Respiratory Rate 18 01/11/19 11:57 Blood Pressure 126/76 01/11/19 11:57 O2 Sat by Pulse Oximetry (%) 98 01/11/19 11:57 ED Treatment Course - LABORATORY CBC & Chemistry Diagram: 01/11/19 12:30 01/11/19 12:30 - ADDITIONAL ORDERS Additional order review: Laboratory Results 01/11/19 11:59 POC Glucometer 84 01/11/19 11:59 POC Glucometer 84 Medical Decision Making - Medical Decision Making *Reviewed vital signs, nursing notes, and prior visit documentation (if available). 78 y/o male presenting with resolving altered mental status s/p D50 administration with reported hypoglycemia by EMS. and son present at bedside. Reports the pt has been in usual state of health. Two Tresiba patches were found on pts body. Both were removed. BGL were initially labial, but never hypoglycemic. At end of 5 hour observation period, BGL trended upward. Low suspicion for further hypoglycemic episode. Suspect hypoglycemia is related to inappropriate insulin administration. Pt was evaluated in this department for similar three months ago. Pt lives with and son. has Alzheimer's. shake out worker evaluated the pt. Will file application for home health aid. Pt found to be more somnolent despite euglycemia. Added on CXR and U/A with urine culture to further evaluate for infectious. CXR unremarkable for acute cardiopulmonary process. UA revealed presence of glucose and protein. Suspect this is secondary to poorly controlled diabetes. Unremarkable for pyuria, leukocyte esterase, or nitrites. Low suspicion for UTI. Culture pending. Discussed proper insulin medication administration with family. Son expressed verbal understanding and that the medication would be hidden from the pts . ED Attending discussed case with pts other son via telephone. Works as [employer]. Is comfortable with workup and plan to discharge home. Unable to reach PCP Dr. Shahid. Family to make appointment. At final reassessment, pt found to be somnolent but easily arousable. Mildly hyperglycemic on POC BGL. Son at bedside states this is baseline and would like to take the pt home. Discussed imaging and laboratory results with family. Answered all questions. Provided return precautions. Family expressed verbal understanding and agreement with plan to discharge home with outpatient follow up. *DC/Admit/Observation/Transfer Diagnosis at time of Disposition: Hypoglycemia - Discharge Dispostion Disposition: HOME Condition at time of disposition: Stable Decision to Admit order: No - Referrals Referrals: Xochitl Shahid MD [Primary Care Provider] - - Patient Instructions Printed Discharge Instructions: DI for Hypoglycemia Additional Instructions: You were seen today for altered mental status likely related to hypoglycemia. You had two insulin pumps attached to your body, which is the likely cause of your low blood sugar. The Tresiba should only be used once a day. Restart your Tresiba (insulin) tomorrow morning at normal time. His blood sugar may drop again over the next several hours. Be sure to continue to monitor his blood sugar every few hours. If he begins to display signs of low blood sugar again, you should call 911 again. The emergency department secondary social studies teacher has placed a referral for you to receive help at home. The application should be processed within the next 2-3 business days. You will receive a call. You likely need home health because this is the second time you have had a hypoglycemic episode in the past three months that has likely occurred secondary to improper medication administration. Follow up with your primary care doctor within the next 3-4 days. You will need to call to make an appointment. Print Language: ROMANSH - Post Discharge Activity
[2019-01-11 12:33] VITALS: TEMP 96.1; BMI 29.1
--- NOTE | 2019-01-11 12:43 | PDOC ---
Attending Attestation - HPI HPI: 01/11/19 13:12 The patient is a 78 year old male, with a significant PMH of diabetes mellitus ( uses insulin pump and tresiba), HTN, HLD, CAD, CABG, CKD, and asthma who presents to the emergency department for evaluation s/p hypoglycemic episode this morning. As per family, the patient was noted to be somnolent and tachypneic this morning s/p receiving tresiba insulin. EMS was then activated and reports blood glucose level of 30 upon arrival. EMS states patient returned to normal baseline mental status s/p receive glucose and was noted to be in the 150s range while en route to the emergency department. Upon arrival to the emergency department, patient was noted to have blood glucose of approx 80. The patient denies chest pain, shortness of breath, headache and dizziness. Denies fever, chills, nausea, vomit, diarrhea and constipation. Denies dysuria, frequency, urgency and hematuria. Allergies: NKA Social history: No reported PCP: Dr De La Rosa Documentation prepared by Michael Llamas, acting as director medical surgical for Ulises Suarez MD. - Physicial Exam PE: 01/11/19 14:34 Vitals: Triage vital signs reviewed General Appearance: No acute distress, well nourished, well developed Neck: Supple; No nuchal rigidity Chest Wall: Nontender Cardiac: Regular rate and rhythm, no murmurs, no rubs, no gallops Lungs: Clear to auscultation bilateral, good air movement bilaterally Abdomen: Soft, nondistended, normal bowel sounds, nontender to palpation Rectal: Exam deferred Extremities: Full range of motion to all extremities, no cyanosis, clubbing, or edema Skin: Warm and dry, no rashes or lesions, no rash, no petechiae Neuro: Moving all extremities. Psych: Normal mood, normal affect <Michael Llamas - Last Filed: 01/11/19 14:34> - Resident Resident Name: Kleber Cruz - ED Attending Attestation I have performed the following: I have examined & evaluated the patient, The case was reviewed & discussed with the resident, I agree w/resident's findings & plan, Exceptions are as noted - Medical Decision Making 01/11/19 16:38 Patient noted to have to insulin devices attached to him. After discussion with family and reviewing old charts this is not the first time that this mistake is been made After removing patient's devices his fingersticks have been normal. Patient sleepy but arousable multiple fingersticks performed in the emergency department distended and straight normoglycemia At the bedside is patient's son and I have discussed on the phone with patient's other son who is an SCHOOL COMMUNITY RELATIONS COORDINATOR patient normally become sleepy like this when his sugars are out of control and when he becomes hypoglycemic We have checked labs in the emergency Department were notable for a slightly elevated white blood cell count of 13.1 a urinalysis and chest x-ray demonstrated no acute infection patient has no other obvious source of infection on examination We rediscussed with patient's son who will arrange close follow-up he will not be restarted on his insulin until tomorrow we have contacted psychologist social to arrange for VNS to evaluate home situation and help with medication administration Patient reevaluated 4:37 with family at bedside family feels patient is at his baseline mental very comfortable taking him home they were instructed to return to the emergency department for any change in patient's mental status or for any concerns. Findings, the need for follow-up and strict return instructions discussed with patient and family. 01/11/19 17:15 <Ulises Suarez - Last Filed: 01/11/19 17:19>
[2019-01-11 12:59] LABS: BASO % 0.7 % (0-2.0); EOS % 1.6 % (0-4.5); HEMATOCRIT 37.2 % (35.4-49); HEMOGLOBIN 12.9 GM/dL (11.7-16.9); LYMPH % 11.3 % (8-40); MCHC 34.7 g/dl (32.0-35.9); MEAN CELL VOLUME 86.5 fl (80-96); MEAN PLT VOLUME 9.4 fl (7.5-11.1); MONO % 10.7 % (3.8-10.2); NEUT % 75.7 % (42.8-82.8); PLATELET COUNT 118 K/MM3 (134-434); RDW 13.2 % (11.9-15.9); WHITE BLOOD COUNT 13.1 K/mm3 (4.0-10.0)
[2019-01-11 13:23] LABS: ALBUMIN 3.4 g/dl (3.4-5.0); ALK PHOS 110 U/L (45-117); ANION GAP 9 MMOL/L (8-16); BILIRUBIN,TOTAL 0.2 mg/dL (0.2-1); BLOOD UREA NITROGEN 30 mg/dL (7-18); CALCIUM 9.6 mg/dL (8.5-10.1); CHLORIDE 106 mmol/L (98-107); CO2 26 mmol/L (21-32); CREATININE 1.1 mg/dL (0.55-1.3); GLUCOSE,RANDOM 74 mg/dL (74-106); POTASSIUM 3.3 mmol/L (3.5-5.1); SGOT/AST 19 U/L (15-37); SGPT/ALT 18 U/L (13-61); SODIUM 141 mmol/L (136-145)
[2019-01-11 16:05] LABS: URINE APPEARANCE CLEAR; URINE BILIRUBIN NEGATIVE (<2.0 mg/dL); URINE COLOR LTYELLOW; URINE GLUCOSE (UA) 3+ (NEGATIVE); URINE KETONE NEGATIVE (NEGATIVE); URINE LEUK ESTERASE NEGATIVE (NEGATIVE); URINE NITRITE NEGATIVE (NEGATIVE); URINE PROTEIN 1+ (NEGATIVE); URINE UROBILINOGEN NEGATIVE mg/dL (0.2-1.0)
[2019-01-11 16:06] LABS: URINE HYALINE CAST 4 /lpf
[2019-01-11 17:03] VITALS: BP 130/85; PULSE 75
--- NOTE | 2019-01-19 22:13 | EKG ---
Test Reason : Blood Pressure : / mmHG Vent. Rate : 067 BPM Atrial Rate : 054 BPM P-R Int : 000 ms QRS Dur : 104 ms QT Int : 444 ms P-R-T Axes : 000 037 051 degrees QTc Int : 469 ms PROBABLE SINUS RHYTHM WITH SINUS ARRHYTHMIA NONSPECIFIC T WAVE ABNORMALITY ABNORMAL ECG WHEN COMPARED WITH ECG OF 21-OCT-2018 12:39, PROBABLE SINUS ARRHYTHMIA AND T WAVE VARIATION Confirmed by VAUGHN GUTIERREZ MD ([id number]) on 01/19/2019 10:12:38 PM Referred By: Confirmed By:VAUGHN GUTIERREZ MD
== END 2019-01-11 17:03 | disposition home or self-care (01) ==
LOC: JER 11:44 → SUPCPDRO 11:44 → JER 17:03
DX: E11.649 Type 2 diabetes mellitus with hypoglycemia without coma (principal); Z79.4 Long term (current) use of insulin; Z96.41 Presence of insulin pump (external) (internal); E11.319 Type 2 diabetes mellitus with unspecified diabetic retinopathy without macular edema; H54.3 Unqualified visual loss, both eyes; I25.10 Atherosclerotic heart disease of native coronary artery without angina pectoris; I13.10 Hypertensive heart and chronic kidney disease without heart failure, with stage 1 through stage 4 chronic kidney disease, or unspecified chronic kidney disease; N18.9 Chronic kidney disease, unspecified; Z95.1 Presence of aortocoronary bypass graft; N40.1 Benign prostatic hyperplasia with lower urinary tract symptoms; N39.498 Other specified urinary incontinence
CPT/HCPCS: 36415; 71045-TC-FY; 80053; 81003; 81015; 82962; 85025; 87086; 93005; 93010; 99283-25

== ENCOUNTER 2019-05-05 16:41 | Inpatient (IN) | payer OTHER ==
--- NOTE | 2019-05-05 17:03 | PDOC ---
History of Present Illness - General Stated Complaint: EMS Time Seen by Provider: 05/05/19 16:42 - History of Present Illness Initial Comments: 05/05/19 17:00 78 yo M with h/o blindness 2/2 diabetic retinopathy, DM, CAD,CHF, dementia, MS s /p CABG, CKD, asthma, BIBEMS with AMS. Per EMS patient called EMS after report of pt. found down on ground in living room/carpet, and disorientation. On arrival EMS notes normal vitals, and BS~116. Patient poor historian 2/2 dementia. Does not recall fall, head trauma, LOC, but currently denying symptoms. Patient at bedside reports patient with complaint of feeling tired and laying down on floor at approximately 1:00 PM this evening. Fell asleep for 2 hours. Denies h/o similar presentation. Patient frequently disoriented. Patient currently at baseline mental status per . Was otherwise in normal state of health today. Patient denies ELLISON, vision change, palpitations, cough, wheezing, orthopena, PND , leg swelling/pain, N/V, F,C, CP, SOB, urinary complaints, hematuria, BPR, abdominal pain, diarrhea, constipation, lightheadedness, sensory changes. PMHx: as noted above ROS: as noted SHx: Denies Etoh, IVDA, tobacco use Allergies: NKDA Past History - Past Medical History Allergies/Adverse Reactions: Allergies Allergy/AdvReac Type Severity Reaction Status Date / Time No Known Allergies Allergy Verified 01/11/19 11:57 Home Medications: Ambulatory Orders Clopidogrel Bisulfate [Plavix -] 75 mg PO DAILY 02/26/12 Nebivolol HCl [Bystolic] 5 mg PO HS 06/23/14 Aspirin [ASA -] 81 mg PO DAILY 12/14/16 Atorvastatin Ca [Lipitor] 80 mg PO HS 12/14/16 Bimatoprost [Lumigan] 1 drop IO DAILY 12/14/16 Cyanocobalamin [Vitamin B12 -] 1,000 mcg PO DAILY 12/14/16 Dorzolamide HCl [Trusopt 2% -] 1 drop OU TID 12/14/16 Ezetimibe [Zetia] 10 mg PO DAILY 12/14/16 Insulin (Levemir) [Levemir Vial] 22 units SQ BIDI #10 ml 12/20/16 Insulin Sliding Scale [Novolog Vial Sliding Scale -] 1 vial SQ Q4HPO #10 units 12/20/16 Tamsulosin HCl [Flomax -] 0.4 mg PO BID #120 cap.er.24h 12/20/16 Furosemide [Lasix -] 40 mg PO DAILY #60 tablet 12/21/16 Memantine HCl 1 tab PO BID 05/08/17 Anemia: No Asthma: Yes Cancer: No Cardiac Disorders: Yes (cabg) CVA: No COPD: No CHF: No Dementia: No Diabetes: Yes GI Disorders: No Disorders: No HTN: Yes Hypercholesterolemia: Yes Liver Disease: No Seizures: No Thyroid Disease: No - Surgical History Abdominal Surgery: No Appendectomy: No Cardiac Surgery: Yes ('96) Cholecystectomy: No Lung Surgery: No Neurologic Surgery: No Orthopedic Surgery: No (rt hip orif) - Immunization History Immunization Up to Date: Yes - Suicide/Smoking/Psychosocial Hx Smoking Status: No Smoking History: Never smoked Have you smoked in the past 12 months: No Number of Cigarettes Smoked Daily: 0 If you are a former smoker, when did you quit?: '96 Hx Alcohol Use: No Drug/Substance Use Hx: No Substance Use Type: None Hx Substance Use Treatment: No Review of Systems - Review of Systems Comments:: 05/05/19 17:08 GENERAL/CONSTITUTIONAL: + weakness. No fever or chills, untintentional wt. loss , night sweats. HEAD, EYES, EARS, NOSE AND THROAT: No change in vision. No ear pain or discharge. No sore throat. CARDIOVASCULAR: No chest pain or shortness of breath RESPIRATORY: No cough, wheezing, or hemoptysis. GASTROINTESTINAL: No nausea, vomiting, diarrhea or constipation. GENITOURINARY: No dysuria, frequency, or change in urination. MUSCULOSKELETAL: No joint or muscle swelling or pain. No neck or back pain. SKIN: No rash NEUROLOGIC: No headache, vertigo, loss of consciousness, or change in strength/ sensation. ENDOCRINE: No increased thirst. No abnormal weight change HEMATOLOGIC/LYMPHATIC: No anemia, easy bleeding, or history of blood clots. ALLERGIC/IMMUNOLOGIC: No hives or skin allergy. *Physical Exam - Physical Exam Comments: 05/05/19 17:08 GENERAL: Awake, alert, oriented to self, in no acute distress HEAD: + Left sided facial droop. No signs of trauma, normocephalic, atraumatic EYES: PERRLA, EOMI, sclera anicteric, conjunctiva clear ENT: Auricles normal inspection, hearing grossly normal, nares patent, oropharynx clear without exudates. Moist mucosa NECK: Normal ROM, supple, no lymphadenopathy, JVD, or masses LUNGS: No distress, speaks full sentences, clear to auscultation bilaterally HEART: Regular rate and rhythm, normal S1 and S2, no murmurs, rubs or gallops, peripheral pulses normal and equal bilaterally. ABDOMEN: Soft, nontender, normoactive bowel sounds. No guarding, no rebound. No masses EXTREMITIES : Normal inspection, Normal range of motion, no edema. No clubbing or cyanosis. NEUROLOGICAL: Cranial nerves II through XII grossly intact. Normal speech. 3/5 strength BL LE. 5/5 BL UE. Absent drift UE across ,midline. no focal sensory deficits SKIN: Warm, Dry, normal turgor, no rashes or lesions noted ED Treatment Course - LABORATORY CBC & Chemistry Diagram: 05/05/19 17:30 05/05/19 17:30 - ADDITIONAL ORDERS Additional order review: 05/05/19 17:14 : 1940 Order Type: Preliminary Name: DANAY GGANON Sex: M Study Description: CT HEAD Modality: CT Location: [facility] Referring Physician: JORGE RAMIREZ Comments: Kleber Varghese MD wrote on May 05, 2019 at 05:09 PM: Referring Physician: JORGE RAMIREZ Patient Name: CHELSI JON THIS IS A PRELIMINARY REPORT FROM [facility] DATE OF SERVICE: 2019-05-05 16:45:08 IMAGES: [id number] EXAM: HEAD CT WITHOUT CONTRAST HISTORY: Altered mental status. Fall COMPARISON: None. FINDINGS: FINDINGS: There is no intra-or extra-axial hemorrhage or collection. No midline shift. There is moderate cortical atrophy. CONFIDENTIALITY NOTICE: This information is intended only for the use of the recipient(s) named above. If you are not the intended recipient, or a person responsible for delivering it to the intended recipient, you are hereby notified that any disclosure, copying, distribution or use of any of the information contained in or attached to this transmission is STRICTLY PROHIBITED. If you have received this transmission in error, please immediately notify Imaging Equipment Engineering Technician and destroy the original transmission and its attachments without saving them in any manner [address] [facility] [address] [place] [address] Phone: [phone] Fax: Email: [email or web address] Web: [email or web address] Patient Information: : 1940 Order Type: Preliminary Name: DANAY GAGNON Sex: M Study Description: CT HEAD Modality: CT Location: [facility] Referring Physician: JORGE RAMIREZ The ventricles are enlarged out of proportion to the degree of cortical atrophy concerning for normal pressure hydrocephalus Normal jordan-white matter differentiation. Low attenuation in the periventricular white matter compatible with chronic microvascular ischemic changes. Atherosclerotic calcifications in the cavernous carotid, basilar and vertebral arteries The calvarium is intact. Mucoperiosteal thickening in the ethmoid air cells and left maxillary sinus compatible with chronic sinusitis Complete opacification of the left mastoid air cells compatible with chronic and /or acute mastoiditis One or more of the following dose reduction techniques were used: automated exposure control, adjustment of the mA and/or kV according to patient size, use of iterative reconstructive technique. THIS DOCUMENT HAS BEEN ELECTRONICALLY SIGNED Kleber Varghese MD 05/05/2019 17:08 EST CONFIDENTIALITY NOTICE: This information is intended only for the use of the recipient(s) named above. If you are not the intended recipient, or a person responsible for delivering it to the intended recipient, you are hereby notified that any disclosure, copying, distribution or use of any of the information contained in or attached to this transmission is STRICTLY PROHIBITED. If you have received this transmission in error, please immediately notify Imaging Equipment Engineering Technician and destroy the original transmission and its attachments without saving them in any manner [address] [facility] [address] [place] [address] Phone: [phone] Fax: Email: [email or web address] Web: [email or web address] Patient Information: : 1940 Order Type: Preliminary Name: DANAY GAGNON Sex: M Study Description: CT HEAD Modality: CT Location: [facility] Referring Physician: JORGE RAMIREZ M.D. Please call Imaging Equipment Engineering Technician [phone]) with questions. Kleber Varghese MD Clinicians - Please contact Imaging Equipment Engineering Technician with further questions at [phone]) Patients - Please contact your Ordering Provider with questions. - RADIOLOGY Radiology Studies Ordered: Category Date Time Status HEAD CT WITHOUT CONTRAST [CT] Stat CT Scan 05/05/19 16:43 Ordered Medical Decision Making - Medical Decision Making 05/05/19 17:07 78 yo M with h/o blindeness, DM, CAD, MS s/p CABG, CKD, asthma, BIBEMS with AMS/ lethargy beginning at 1:00PM today. A&Ox1, Will assess for VBI/TIA, cardiac dysarrythmias, hypoglycemia, electrolyte abnml, metabolic and toxic derangements , acid-base disturbances, infection. ED Course: 05/05/19 17:15 CTH: There is no intra-or extra-axial hemorrhage or collection. No midline shift.There is moderate cortical atrophy. 05/05/19 18:15 EKG: NSR with absent PACHECO, STD. Nml interval duration and axis. Nml R wave progression. Q waves lead III 05/05/19 18:31 Laboratory Tests 05/05/19 05/05/19 17:30 17:30 WBC 11.0 H Hgb 12.5 Hct 37.3 BUN 42.4 H Creatinine 1.5 H Alkaline Phosphatase 136 H 05/05/19 18:37 Laboratory Tests 05/05/19 17:40 Urine Nitrite Negative Ur Leukocyte Esterase 2+ H Urine WBC (Auto) 52 Urine RBC (Auto) 2 05/05/19 18:52 Rocephin 1000 mg 05/05/19 19:[address] Reese, and Dr. Miranda. Admitted to Dr. Mojica *DC/Admit/Observation/Transfer Diagnosis at time of Disposition: KIKI (acute kidney injury) Altered mental status Qualifiers: Altered mental status type: somnolence Qualified Code(s): R40.0 - Somnolence - Discharge Dispostion Condition at time of disposition: Stable Decision to Admit order: Yes - Referrals - Patient Instructions - Post Discharge Activity
[2019-05-05] MEDS ORDERED: SODIUM CHLORIDE 1,000 ML IV SCH ×2 (17:15→20:15)
--- NOTE | 2019-05-05 17:38 | PDOC ---
Documentation entered by Kevyn Richey SCRIBE, acting as scribe for Emily Adame MD. Emily Adame MD: This documentation has been prepared by the Rossi olivera Nirvannie, SCRIBE, under my direction and personally reviewed by me in its entirety. I confirm that the documentation accurately reflects all work, treatment, procedures, and medical decision making performed by me. Attending Attestation - Resident Resident Name: NoahTungJasbir - ED Attending Attestation I have performed the following: I have examined & evaluated the patient, The case was reviewed & discussed with the resident, I agree w/resident's findings & plan - HPI HPI: 05/05/19 17:39 The patient is a 78 year old male, with a significant past medical history of blt blindness secondary to diabetic retinopathy, DM, CAD (s/p MS and CABG),CHF, dementia, CKD, asthma, who presents to the emergency department with, AMS. As per patients at bedside, at approx. 1pm he began to feel tired then subsequently lowered himself to the floor, took a nap, then woke still feeling off prompting her call for EMS. denies any fall, syncope, or head/neck trauma. Allergies: NKDA Past surgical history: CABG, R hip ORIF Social History: Nonsmoker. Denies EtOH use and recreational drug use. Primary Care Physician:Dr De La Rosa - Physicial Exam PE: 05/05/19 17:23 78 yo male BIBA after a family member called the ambulance for AMS. upon arrival this 78 yo male was alert but a very poor historian head ncat, no scalp hematomas, no scalp lacerations no evidence of trauma eyes rt eye is opaque, no sight ( he is legally blind ) neck no cervical vertebral tenderness, supple, no nuchal rigidity lungs cta b/l cvs [id number] abdomen distended extremities no edema skin warm and dry neuro alert but very poor historian,moving all extremities but upon arrival he had some difficulty raising his legs off the bed 05/05/19 17:55 - Medical Decision Making 05/05/19 17:21 EXAM: HEAD CT WITHOUT CONTRAST HISTORY: Altered mental status. Fall COMPARISON: None. FINDINGS: FINDINGS: There is no intra-or extra-axial hemorrhage or collection. No midline shift. There is moderate cortical atrophy. The ventricles are enlarged out of proportion to the degree of cortical atrophy concerning for normal pressure hydrocephalus Normal jordan-white matter differentiation. Low attenuation in the periventricular white matter compatible with chronic microvascular ischemic changes. Atherosclerotic calcifications in the cavernous carotid, basilar and vertebral arteries The calvarium is intact. Mucoperiosteal thickening in the ethmoid air cells and left maxillary sinus compatible with chronic sinusitis Complete opacification of the left mastoid air cells compatible with chronic and /or acute mastoiditis One or more of the following dose reduction techniques were used: automated exposure control, adjustment of the mA and/or kV according to patient size, use of iterative reconstructive technique. Read by: Kleber Varghese MD 05/05/19 17:29 ct scan head no infarct,no bleed, no skull fx pt is afebrile but will send UC,BC to r/o infection -due to his cardiac history the cardiac enzymes were sent 05/05/19 18:50 repeat BP is better @ 150/57 UA +wbcs,+2 leuk 05/05/19 19:07 negative troponin, renal insufficiency admit for uti/ams
[2019-05-05 17:56] LABS: EOS % 4.7 % (0-4.5); HEMATOCRIT 37.3 % (35.4-49); HEMOGLOBIN 12.5 GM/dL (11.7-16.9); LYMPH % 24.7 % (8-40); MCH 29.1 pg (25.7-33.7); MCHC 33.5 g/dl (32.0-35.9); MEAN CELL VOLUME 86.9 fl (80-96); MEAN PLT VOLUME 9.3 fl (7.5-11.1); MONO % 10.3 % (3.8-10.2); NEUT % 59.3 % (42.8-82.8); RBC 4.29 M/mm3 (4.00-5.60); RDW 13.6 % (11.9-15.9)
[2019-05-05 18:04] LABS: EPI CELLS 0.6 /HPF (0-5/HPF); HYALINE CASTS 1 /lpf (0-8); PH,URINE 5.5 (5.0-8.0); URINE APPEARANCE CLEAR; URINE BACTERIA 38.1 /hpf (NEGATIVE); URINE BILIRUBIN NEGATIVE (NEGATIVE); URINE COLOR YELLOW; URINE GLUCOSE (UA) NEGATIVE (NEGATIVE); URINE KETONE NEGATIVE (NEGATIVE); URINE LEUK ESTERASE 2+ (NEGATIVE); URINE NITRITE NEGATIVE (NEGATIVE); URINE PROTEIN NEGATIVE (NEGATIVE); URINE RBC 2 /hpf (0-4); URINE WBC 52 /hpf (0-5)
[2019-05-05 18:21] LABS: ALBUMIN 3.3 g/dl (3.4-5.0); ALK PHOS 136 U/L (45-117); ANION GAP 8 MMOL/L (8-16); BILIRUBIN,TOTAL 0.3 mg/dL (0.2-1); BLOOD UREA NITROGEN 42.4 mg/dL (7-18); CALCIUM 8.7 mg/dL (8.5-10.1); CHLORIDE 106 mmol/L (98-107); CO2 27 mmol/L (21-32); CREATININE 1.5 mg/dL (0.55-1.3); GLUCOSE,RANDOM 99 mg/dL (74-106); POTASSIUM 4.4 mmol/L (3.5-5.1); SGOT/AST 23 U/L (15-37); SGPT/ALT 20 U/L (13-61); SODIUM 141 mmol/L (136-145); TOT PROT 6.8 g/dl (6.4-8.2)
[2019-05-05 18:37] LABS: INR 1.18 (0.83-1.09)
[2019-05-05 18:38] LABS: PLATELET COUNT 142 K/MM3 (134-434)
[2019-05-05 18:39] LABS: PLATELET ESTIMATE ADEQUATE
[2019-05-05] MEDS ORDERED: CEFTRIAXONE 1 GM/50 ML BAG ONE (19:15)
--- NOTE | 2019-05-05 19:15 | PN ---
Teaching Attending Note Name of Resident: Sheila Miranda ATTENDING PHYSICIAN STATEMENT I saw and evaluated the patient. I reviewed the resident's note and discussed the case with the resident. I agree with the resident's findings and plan as documented. SUBJECTIVE: Patient is a 78 year old man with PMH of blindness due to diabetic retinopathy, HLD, right hip ORIF, Dementia, NIDDM, CAD, ?diastolic CHF, dementia, DC s/p CABG (Over 20 years ago), CKD and asthma brought by EMS with AMS. Patient's called EMS after report of patient found down on ground in living room/ carpet, and disorientation. On arrival EMS notes normal vitals, and BS~116. Patient unable to provide more precise information due to dementia. Does not recall fall, head trauma, LOC, but currently denying symptoms. Patient at bedside reports patient with complaint of feeling tired and laying down on floor at approximately 1:00 PM this evening. Fell asleep for 2 hours. Denies history of similar presentation in the past. Patient frequently disoriented. Patient currently at baseline mental status per . Was otherwise in normal state of health today. Patient denies headache, photophobia , palpitations, cough, wheezing, orthopena, PND, leg swelling/pain, nausea, vomiting, fever, chills, chest pain, SOB, urinary complaints, hematuria, BPR, abdominal pain, diarrhea, constipation or lightheadedness. OBJECTIVE: Awake, alert and confused Vital Signs Period Temp Pulse Resp BP Sys/Poole Pulse Ox Last 24 Hr 97.7 F 63 16 150/54 100 HEENT: No Jaundice, eye redness or discharge, Legally blind; +Cataracts, Normocephalic, atraumatic. External ears are normal and hearing is grossly intact. No nasal discharge. Neck: Supple, nontender. No palpable adenopathy or thyromegaly. No JVD Chest: Good effort. Clear to auscultation and percussion. Heart: Regular. No S3, rub or murmur Abdomen: Slightly distended, soft, nontender and no HSM. No rebound or guarding. Normal bowel sounds. Ext: Peripheral pulses intact. No leg edema. Abrasions on toes on left foot. Skin: Warm and dry. No petechiae, rash or ecchymosis. Neuro: Alert. Oriented to person. Unable to follow commands. Moves all limbs. Psych: Appropriate mood and affect. Current Medications Generic Name Dose Route Start Last Admin Trade Name Freq PRN Reason Stop Dose Admin Sodium Chloride 1,000 mls @ 42 mls/hr 05/05/19 17:15 05/05/19 17:54 Normal Saline - IV 42 mls/hr ASDIR DAISHA Administration Home Medications Medication Instructions Recorded Clopidogrel Bisulfate [Plavix -] 75 mg PO DAILY 02/26/12 Nebivolol HCl [Bystolic] 5 mg PO HS 06/23/14 Aspirin [ASA -] 81 mg PO DAILY 12/14/16 Atorvastatin Ca [Lipitor] 80 mg PO HS 12/14/16 Bimatoprost [Lumigan] 1 drop IO DAILY 12/14/16 Cyanocobalamin [Vitamin B12 -] 1,000 mcg PO DAILY 12/14/16 Dorzolamide HCl [Trusopt 2% -] 1 drop OU TID 12/14/16 Ezetimibe [Zetia] 10 mg PO DAILY 12/14/16 Insulin (Levemir) [Levemir Vial] 22 units SQ BIDI #10 ml 12/20/16 Insulin Sliding Scale [Novolog 1 vial SQ Q4HPO #10 units 12/20/16 Vial Sliding Scale -] Tamsulosin HCl [Flomax -] 0.4 mg PO BID #120 cap.er.24h 12/20/16 Furosemide [Lasix -] 40 mg PO DAILY #60 tablet 12/21/16 Memantine HCl 1 tab PO BID 05/08/17 Abnormal Lab Results 05/05/19 05/05/19 05/05/19 17:30 17:30 17:30 WBC 11.0 H Monocytes % 10.3 H Eosinophils % 4.7 H D PT with INR 14.00 H INR 1.18 H BUN 42.4 H Creatinine 1.5 H Alkaline Phosphatase 136 H Albumin 3.3 L Ur Leukocyte Esterase 05/05/19 17:40 WBC Monocytes % Eosinophils % PT with INR INR BUN Creatinine Alkaline Phosphatase Albumin Ur Leukocyte Esterase 2+ H ASSESSMENT AND PLAN: 1. AMS and UTI - Reported AMS may signal the "natural" course of his dementia, because family says his mentation is at baseline now. Head CT scan without contrast and CXR do not show any acute abnormality. EKG is NSR with no significant ST-T wave changes and prolonged QTc. Weakness likely due to UTI. Patient got 1 liter bolus IV NS in the ER. Sepsis workup done. Will continue IV Rocephin pending culture report. Gentle IV fluids.Most recent ECHO on record from 03/15/16 showed normal LV size and normal LV systolic function. Implement fall precautions and get CT abdomen to evaluate abdominal distension. 2. Hypoalbuminemia - Possibly due to combined effects of malnutrition and inflammation associated with comorbid chronic conditions. Will ensure adequate dietary protein intake and also consult clinical informatics physician. 3. DM For now, we will hold the home diabetes drugs and implement sliding scale insulin regimen. Provide comprehensive diabetes care with patient teaching and counseling about the importance of adherence to prescribed diabetes regimen, euglycemia, eye care and foot care. 4. CKD - Etiology unclear. Will check phosphate, PTH, monitor urine out put and repeat BMP. Consult nephrology and avoid nephrotoxic agents such as NSAIDS, aminoglycosides, contrast dyes and certain Alternative medicine products. 5. DVT prophylaxis - Heparin 5000u sq tid. 6. Advance directives - Full code
--- NOTE | 2019-05-05 19:43 | HP ---
Admitting History and Physical - Primary Care Physician PCP: Kleber Minaya - Admission Chief Complaint: Generalized weakness x1 day History of Present Illness: Pt is an 78 yo M with PMHx of DM with blindness related to DM, CAD,CHF, dementia , ID s/p CABG (1995), CKD, COPD/asthma, ESTELLE, BIBEMS for generalized weakness. EMS was called by pt's and EMS reported they found pt on floor. Per , pt went to the bathroom with her assistance but was too weak and rather than have him slip and fall, she slid him onto the floor concerned that he may be hypoglycemic. Pt did not fall or hit his head. On arrival EMS notes normal vitals, and BS~116. Initially in the ED, he was worked up for AMS/stroke but per family pt is at his baseline mental status but has increased weakness. Patient has worsening dementia and unable to provide history. Per son, pt was at the PCP yesterday, and scrapped 3 toes on the left foot on the stairs (he was wearing slippers). Pt's son had started conversation with PCP about home health aide services which were not concluded prior to the ED visit today. Son notes pt is complaining about abdominal discomfort, and requested an abd US , but denies any other symptoms including fevers, cough, chest pain, dysuria or hematuria or change in bowel habits. Pt has been blind for about 7 years and is dependent on individuals for assistance to ambulate. Family is unsure of what the etiology of the blindness is, except that it is related to DM. ED: EKG- NSR-61, low voltage, nl axis, normal intervals, Non specific T wave abnormalities, No PACHECO/STD,QTC-465 (unchanged from prior) WBC-11.0, BUN/Cr-42.4/1.5, Al-3.3, trops <0.02 UA- LE 2+, WBC-52, Bacteria-32 Bcx, Ucx- pending History Source: Family Member, Medical Record Limitations to Obtaining History: Clinical Condition, Dementia - Past Medical History Cardiovascular: Yes: CAD, HTN, Hyperlipdemia Pulmonary: Yes: Asthma, COPD - Past Surgical History Past Surgical History: Yes: CABG, Joint Replacement (R hip ORIF) - Smoking History Smoking history: Never smoked Have you smoked in the past 12 months: No Aproximately how many cigarettes per day: 0 If you are a former smoker, when did you quit?: '96 - Alcohol/Substance Use Hx Alcohol Use: No - Social History Usual Living Arrangement: Yes: With Spouse ADL: Family Assistance History of Recent Travel: No Home Medications - Allergies Allergies/Adverse Reactions: Allergies Allergy/AdvReac Type Severity Reaction Status Date / Time No Known Allergies Allergy Verified 01/11/19 11:57 - Home Medications Home Medications: Ambulatory Orders Clopidogrel Bisulfate [Plavix -] 75 mg PO DAILY 02/26/12 Nebivolol HCl [Bystolic] 5 mg PO HS 06/23/14 Aspirin [ASA -] 81 mg PO DAILY 12/14/16 Atorvastatin Ca [Lipitor] 80 mg PO HS 12/14/16 Bimatoprost [Lumigan] 1 drop IO DAILY 12/14/16 Cyanocobalamin [Vitamin B12 -] 1,000 mcg PO DAILY 12/14/16 Dorzolamide HCl [Trusopt 2% -] 1 drop OU TID 12/14/16 Ezetimibe [Zetia] 10 mg PO DAILY 12/14/16 Insulin (Levemir) [Levemir Vial] 22 units SQ BIDI #10 ml 12/20/16 Insulin Sliding Scale [Novolog Vial Sliding Scale -] 1 vial SQ Q4HPO #10 units 12/20/16 Tamsulosin HCl [Flomax -] 0.4 mg PO BID #120 cap.er.24h 12/20/16 Furosemide [Lasix -] 40 mg PO DAILY #60 tablet 12/21/16 Memantine HCl 1 tab PO BID 05/08/17 Review of Systems Unable to obtain ROS, reason: Demented Physical Examination Vital Signs: Vital Signs Temperature 97.7 F 05/05/19 16:42 Pulse Rate 63 05/05/19 16:42 Respiratory Rate 16 05/05/19 16:42 Blood Pressure 150/54 L 05/05/19 16:42 O2 Sat by Pulse Oximetry (%) 100 05/05/19 16:42 Constitutional: Yes: No Distress Eyes: Yes: EOM Intact, Cataracts, Other (R corneal opacity). No: Conjunctiva Clear (Injected R conjuctiva) HENT: Yes: Atraumatic Neck: Yes: Supple Cardiovascular: Yes: Regular Rate and Rhythm, S1, S2 Respiratory: Yes: Wheezes (B/l wheezes) Gastrointestinal: Yes: Normal Bowel Sounds, Soft, Abdomen, Obese. No: Tenderness Renal/: No: Bladder Distention, CVA Tenderness - Left, CVA Tenderness - Right , Strong Present Musculoskeletal: No: Joint Stiffness, Joint Swelling, Muscle Pain Extremities: Yes: Calf Tenderness, Other (superficial injury to L 2nd to 4th toes, dried blood) Edema: No Peripheral Pulses WNL: Yes Neurological: Yes: Alert, Oriented (oriented to person and probably place, not to time,), Confusion, Weakness, Other (hypertonia RLE>LLE). No: Aphasia, Dysarthria, Facial Droop, Loss of Sensation, Seizure, Tremors, Unresponsive ...Motor Strength: LUE (5/5), LLE (4/5), RUE (5/5), RLE (4/5) Psychiatric: Yes: Alert Labs: CBC, BMP 05/05/19 17:30 05/05/19 17:30 Imaging - Results Chest X-ray: Image Reviewed (No congestive changes, no infiltraates noted) Assessment/Plan Ambulatory Orders Clopidogrel Bisulfate [Plavix -] 75 mg PO DAILY 02/26/12 Nebivolol HCl [Bystolic] 5 mg PO HS 06/23/14 Aspirin [ASA -] 81 mg PO DAILY 12/14/16 Atorvastatin Ca [Lipitor] 80 mg PO HS 12/14/16 Bimatoprost [Lumigan] 1 drop IO DAILY 12/14/16 Cyanocobalamin [Vitamin B12 -] 1,000 mcg PO DAILY 12/14/16 Dorzolamide HCl [Trusopt 2% -] 1 drop OU TID 12/14/16 Ezetimibe [Zetia] 10 mg PO DAILY 12/14/16 Insulin (Levemir) [Levemir Vial] 22 units SQ BIDI #10 ml 12/20/16 Insulin Sliding Scale [Novolog Vial Sliding Scale -] 1 vial SQ Q4HPO #10 units 12/20/16 Tamsulosin HCl [Flomax -] 0.4 mg PO BID #120 cap.er.24h 12/20/16 Furosemide [Lasix -] 40 mg PO DAILY #60 tablet 12/21/16 Memantine HCl 1 tab PO BID 05/08/17 Current Medications Aspirin (Asa -) 81 mg PO DAILY DAISHA Last Admin: 05/05/19 20:34 Dose: 81 mg Atorvastatin Calcium (Lipitor -) 80 mg PO HS DAISHA Clopidogrel Bisulfate (Plavix -) 75 mg PO DAILY [facility] Last Admin: 05/05/19 20:34 Dose: 75 mg Dorzolamide HCl (Trusopt 2%) 1 drop OU TID DAISHA Ezetimibe (Zetia -) 10 mg PO DAILY [facility] Heparin Sodium (Porcine) (Heparin -) 5,000 unit SQ TID DAISHA Sodium Chloride (Normal Saline -) 1,000 mls @ 42 mls/hr IV ASDIR DAISHA Last Admin: 05/05/19 17:54 Dose: 42 mls/hr Sodium Chloride (Normal Saline -) 1,000 mls @ 42 mls/hr IV ASDIR DAISHA Last Admin: 05/05/19 20:34 Dose: 42 mls/hr Ceftriaxone Sodium 1 gm/ (Dextrose) 50 mls @ 100 mls/hr IVPB DAILY DAISHA; Protocol Insulin Aspart (Novolog Vial Sliding Scale -) 1 vial SQ ACHS DAISHA; Protocol Latanoprost (Xalatan 0.005% Eye Drops -) 1 drop OU HS DAISHA Memantine (Namenda -) 10 mg PO BID DAISHA Nebivolol (Bystolic -) 5 mg PO HS DAISHA Tamsulosin HCl (Flomax -) 0.4 mg PO BID [facility] ECHO- EF-64, no wall motion abnormalities 03/15 Stress test-2014- Small apical reversible defect suggestive of mild ischemia, small inferio-lat reversible defect suggestive of mild ischemia, EF 56%. 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 Generalized weakness; Pt demented at baseline Pt without hemiparesis, no hx of fall or trauma At mental status baseline CT head negative for acute pathol, no evidence of stroke Likely in setting of UTI UTI Positive UA Generalized weakness, mild leukocytosis Received ceftriaxone in ED, cont Received 1L NS in ED Pt with CKD/ on home lasix, gentle hydration DM with blindness related to DM, Pt with prior hx of hypoglycemia ISS ACHS BGM ACHS Uses levemir 22u bid- at home, pending med rec, is on hold Cont eye drops Pt with chronic R eye injection and dried discharge- may consider antibiotic eye drop Abd distension CTAP w/o contrast KIKI on CKD Unclear baseline Last documented Cr-1.11 Has been over 2.6 in past and ranging in 1.4 Gentle hydration Avoid nephrotoxic medications LLE pain: New trauma to LLE No swelling noted, hx of reduced mobility, no acute SOB Duplex US b/l LE Tylenol for pain COPD/asthma, ESTELLE No use of accessory muscles Wheezes b/l Cont nebs Monocytosis and eosinophilia could be in setting of asthma Cont to monitor CAD/ID s/p CABG (1995) Pt appears to be on dual antiplatelet therapy Verify meds in am, son did not have the list on him Restarted ASA and plavix No hx of CP Initial trops negative, trend CHF Last ECHO without evidence of systolic or diastolic HF Pt appears to be on home lasix 80mg Pt appears euvolemic Lasix On hold in setting of infection dementia, Likely Alzheimers per imaging- MRI in past Has been worsening Imaging also showed NPH Needs assistance with feeding and ambulation Fall risk Q2H turning Hypoalbuminemia Could be in setting of CKD Cont to monitor FEN NS @42 Monitor lytes replete as needed Diabetic diet PPx: Heparin sq Dispo: Med surg Pt may benefit from home health aide per son-SW requested Visit type - Emergency Visit Emergency Visit: Yes ED Registration Date: 05/05/19 Care time: The patient presented to the Emergency Department on the above date and was hospitalized for further evaluation of their emergent condition. - New Patient This patient is new to me today: Yes Date on this admission: 05/06/19 - Critical Care Critical Care patient: No
[2019-05-05] MEDS: ASPIRIN 81 MG CHEWABLE TABLETS PO SCH (20:34)
[2019-05-05] MEDS: CLOPIDOGREL BISULFATE 75 MG TABLET (FP) PO SCH (20:34)
[2019-05-05 21:23] LABS: MAGNESIUM 2.5 mg/dL (1.8-2.4); PHOSPHOROUS 3.5 mg/dL (2.5-4.9)
[2019-05-05] MEDS ORDERED: ATORVASTATIN CA 80 MG TABLET (FP) PO SCH (22:00)
[2019-05-05] MEDS ORDERED: INSULIN SLIDING SCALE (NOVOLOG) 1 VIAL SQ SCH (22:00)
[2019-05-05] MEDS: HEPARIN NA (PORCINE) 5,000 UNITS/ML 1ML VIAL SQ SCH (23:57)
[2019-05-05] MEDS: ACETAMINOPHEN 325 MG TABLET (FP) PO PRN (23:57)
[2019-05-05] MEDS: TAMSULOSIN HCL 0.4 MG CAP PO SCH (23:58)
[2019-05-05] MEDS: MEMANTINE HCL 10 MG TABLET (FP) PO SCH (23:58)
[2019-05-05] MEDS: DORZOLAMIDE 2% HCL OPHTHALMIC SOLUTION 10 ML BOTTLE OU SCH (23:59)
[2019-05-05] MEDS: LATANOPROST 0.005% OPHTH SOLN 2.5ML BOTTLE OU SCH (23:59)
[2019-05-05] MEDS: NEBIVOLOL 5 MG TABLET (FP) PO SCH (23:59)
[2019-05-05] MEDS: INSULIN SLIDING SCALE (NOVOLOG) 1 VIAL SQ SCH (23:59)
[2019-05-06 03:49] VITALS: BMI 25.2
[2019-05-06] MEDS: INSULIN SLIDING SCALE (NOVOLOG) 1 VIAL SQ SCH ×4 (06:52→23:10)
[2019-05-06] MEDS: HEPARIN NA (PORCINE) 5,000 UNITS/ML 1ML VIAL SQ SCH ×3 (06:56→22:55)
[2019-05-06 07:08] LABS: EOS % 5.3 % (0-4.5); HEMATOCRIT 35.5 % (35.4-49); HEMOGLOBIN 12.2 GM/dL (11.7-16.9); LYMPH % 26.6 % (8-40); MCH 29.5 pg (25.7-33.7); MCHC 34.3 g/dl (32.0-35.9); MEAN CELL VOLUME 85.9 fl (80-96); MEAN PLT VOLUME 9.3 fl (7.5-11.1); MONO % 9.2 % (3.8-10.2); NEUT % 57.9 % (42.8-82.8); PLATELET COUNT 117 K/MM3 (134-434); RBC 4.13 M/mm3 (4.00-5.60); RDW 13.6 % (11.9-15.9); WHITE BLOOD COUNT 8.4 K/mm3 (4.0-10.0)
[2019-05-06] MEDS: ALBUTEROL SO4 2.5/IPRATROPIUM 0.5 INH SOL 3 ML VIAL.NEB. NEB SCH ×4 (07:40→20:45)
[2019-05-06] MEDS: DORZOLAMIDE 2% HCL OPHTHALMIC SOLUTION 10 ML BOTTLE OU SCH ×3 (07:42→22:55)
[2019-05-06 07:45] LABS: ALBUMIN 3.1 g/dl (3.4-5.0); ALK PHOS 147 U/L (45-117); ANION GAP 8 MMOL/L (8-16); BILIRUBIN,TOTAL 0.4 mg/dL (0.2-1); BLOOD UREA NITROGEN 39.6 mg/dL (7-18); CALCIUM 8.8 mg/dL (8.5-10.1); CHLORIDE 106 mmol/L (98-107); CO2 24 mmol/L (21-32); CREATININE 1.5 mg/dL (0.55-1.3); MAGNESIUM 2.6 mg/dL (1.8-2.4); POTASSIUM 5.4 mmol/L (3.5-5.1); SGOT/AST 18 U/L (15-37); SGPT/ALT 19 U/L (13-61); SODIUM 138 mmol/L (136-145); TOT PROT 6.5 g/dl (6.4-8.2)
[2019-05-06 07:54] LABS: GLUCOSE,RANDOM 354 mg/dL (74-106)
[2019-05-06 08:00] LABS: INR 1.23 (0.83-1.09); PROTHROMBIN TIME (PATIENT) 14.5 SEC (9.7-13.0)
[2019-05-06 08:01] LABS: ACTIVATED PTT 51.5 SECONDS (25.2-36.5)
[2019-05-06] MEDS ORDERED: SODIUM CHLORIDE 500 ML IV STA (08:12)
[2019-05-06] MEDS ORDERED: EZETIMIBE 10 MG TABLET (FP) PO SCH (10:00)
[2019-05-06] MEDS ORDERED: cefTRIAXone SODIUM 1 GM VIAL ONE (10:06)
[2019-05-06] MEDS ORDERED: DEXTROSE 5%-WATER - 50 ML IVPB ONE (10:06)
--- NOTE | 2019-05-06 10:08 | PN ---
Physical Exam: SUBJECTIVE: Patient seen and examined patient resting in bed nad, no acute events, afebrile hemodynamically stable. denies abd pain, n/v/d/c. denies f/c. oriented only to self, baseline mental status per family OBJECTIVE: Vital Signs Period Temp Pulse Resp BP Sys/Poole Pulse Ox Last 24 Hr 97.4 F-99.0 F 63-69 16-20 136-150/54-74 100-100 GENERAL: The patient is awake, oriented only to self, confused. HEAD: Normal with no signs of trauma. EYES: sclera anicteric, conjunctiva clear. No ptosis. ENT: moist mucous membranes. NECK: supple. LUNGS: Breath sounds equal, clear to auscultation bilaterally HEART: Regular rate and rhythm, S1, S2 systolic murmur ABDOMEN: Soft, mildly tender LUQ, feels full of stool, nondistended, normoactive bowel sounds, no guarding, no rebound EXTREMITIES: 2+ pulses, warm, well-perfused, no edema. NEUROLOGICAL: Cranial nerves II through XII grossly intact PSYCH: calm SKIN: Warm, dry Laboratory Results - last 24 hr 05/05/19 05/05/19 05/05/19 08:14 17:30 17:30 WBC 11.0 H RBC 4.29 Hgb 12.5 Hct 37.3 MCV 86.9 MCH 29.1 MCHC 33.5 RDW 13.6 Plt Count 142 D MPV 9.3 Absolute Neuts (auto) 6.5 Neutrophils % 59.3 D Lymphocytes % 24.7 D Monocytes % 10.3 H Eosinophils % 4.7 H D Basophils % 1.0 Nucleated RBC % 0 Platelet Estimate Adequate Platelet Comment Plts.reviewed PT with INR 14.00 H INR 1.18 H PTT (Actin FS) Sodium Potassium Chloride Carbon Dioxide Anion Gap BUN Creatinine Est GFR (CKD-EPI)AfAm Est GFR (CKD-EPI)NonAf POC Glucometer Random Glucose Lactic Acid Calcium Phosphorus Magnesium Total Bilirubin AST ALT Alkaline Phosphatase Creatine Kinase Troponin I Total Protein Albumin Urine Color Urine Appearance Urine pH Ur Specific [place] Urine Protein Urine Glucose (UA) Urine Ketones Urine Blood Urine Nitrite Urine Bilirubin Urine Urobilinogen Ur Leukocyte Esterase Urine WBC (Auto) Urine RBC (Auto) Urine Casts (Auto) U Epithel Cells (Auto) Urine Bacteria (Auto) Blood Type O POSITIVE Antibody Screen 05/05/19 05/05/19 05/05/19 17:30 17:30 17:30 WBC RBC Hgb Hct MCV MCH MCHC RDW Plt Count MPV Absolute Neuts (auto) Neutrophils % Lymphocytes % Monocytes % Eosinophils % Basophils % Nucleated RBC % Platelet Estimate Platelet Comment PT with INR INR PTT (Actin FS) Sodium 141 Potassium 4.4 Chloride 106 Carbon Dioxide 27 Anion Gap 8 BUN 42.4 H Creatinine 1.5 H Est GFR (CKD-EPI)AfAm 50.95 Est GFR (CKD-EPI)NonAf 43.96 POC Glucometer Random Glucose 99 Lactic Acid 1.2 Calcium 8.7 Phosphorus Magnesium Total Bilirubin 0.3 AST 23 ALT 20 Alkaline Phosphatase 136 H Creatine Kinase 145 Troponin I < 0.02 Total Protein 6.8 Albumin 3.3 L Urine Color Urine Appearance Urine pH Ur Specific [place] Urine Protein Urine Glucose (UA) Urine Ketones Urine Blood Urine Nitrite Urine Bilirubin Urine Urobilinogen Ur Leukocyte Esterase Urine WBC (Auto) Urine RBC (Auto) Urine Casts (Auto) U Epithel Cells (Auto) Urine Bacteria (Auto) Blood Type O POSITIVE Antibody Screen Negative 05/05/19 05/05/19 05/06/19 17:40 20:50 05:32 WBC RBC Hgb Hct MCV MCH MCHC RDW Plt Count MPV Absolute Neuts (auto) Neutrophils % Lymphocytes % Monocytes % Eosinophils % Basophils % Nucleated RBC % Platelet Estimate Platelet Comment PT with INR INR PTT (Actin FS) Sodium Potassium Chloride Carbon Dioxide Anion Gap BUN Creatinine Est GFR (CKD-EPI)AfAm Est GFR (CKD-EPI)NonAf POC Glucometer 377 Random Glucose Lactic Acid Calcium Phosphorus 3.5 Magnesium 2.5 H Total Bilirubin AST ALT Alkaline Phosphatase Creatine Kinase Troponin I Total Protein Albumin Urine Color Yellow Urine Appearance Clear Urine pH 5.5 Ur Specific [place] 1.013 Urine Protein Negative Urine Glucose (UA) Negative Urine Ketones Negative Urine Blood Negative Urine Nitrite Negative Urine Bilirubin Negative Urine Urobilinogen 1.0 Ur Leukocyte Esterase 2+ H Urine WBC (Auto) 52 Urine RBC (Auto) 2 Urine Casts (Auto) 1 U Epithel Cells (Auto) 0.6 Urine Bacteria (Auto) 38.1 Blood Type Antibody Screen 05/06/19 05/06/19 05/06/19 06:33 06:33 06:33 WBC 8.4 RBC 4.13 Hgb 12.2 Hct 35.5 MCV 85.9 MCH 29.5 MCHC 34.3 RDW 13.6 Plt Count MPV 9.3 Absolute Neuts (auto) 4.9 Neutrophils % 57.9 Lymphocytes % 26.6 Monocytes % 9.2 Eosinophils % 5.3 H Basophils % 1.0 Nucleated RBC % 0 Platelet Estimate Platelet Comment PT with INR 14.50 H INR 1.23 H PTT (Actin FS) 51.5 H Sodium 138 Potassium 5.4 H Chloride 106 Carbon Dioxide 24 Anion Gap 8 BUN 39.6 H Creatinine 1.5 H Est GFR (CKD-EPI)AfAm 50.95 Est GFR (CKD-EPI)NonAf 43.96 POC Glucometer Random Glucose 354 H* Lactic Acid Calcium 8.8 Phosphorus 3.0 Magnesium 2.6 H Total Bilirubin 0.4 AST 18 ALT 19 Alkaline Phosphatase 147 H Creatine Kinase Troponin I < 0.02 Total Protein 6.5 Albumin 3.1 L Urine Color Urine Appearance Urine pH Ur Specific [place] Urine Protein Urine Glucose (UA) Urine Ketones Urine Blood Urine Nitrite Urine Bilirubin Urine Urobilinogen Ur Leukocyte Esterase Urine WBC (Auto) Urine RBC (Auto) Urine Casts (Auto) U Epithel Cells (Auto) Urine Bacteria (Auto) Blood Type Antibody Screen Active Medications Generic Name Dose Route Start Last Admin Trade Name Freq PRN Reason Stop Dose Admin Acetaminophen 650 mg 05/05/19 21:39 05/05/19 23:57 Tylenol - PO 650 mg Q4H PRN Administration PAIN LEVEL 1-5 Albuterol/Ipratropium 1 amp 05/06/19 08:00 05/06/19 07:40 Duoneb - NEB 1 amp RQID DAISHA Administration Aspirin 81 mg 05/05/19 20:30 05/05/19 20:34 Asa - PO 81 mg DAILY DAISHA Administration Atorvastatin Calcium 80 mg 05/05/19 22:00 05/05/19 23:58 Lipitor - PO 80 mg HS DAISHA Administration Clopidogrel Bisulfate 75 mg 05/05/19 20:30 05/05/19 20:34 Plavix - PO 75 mg DAILY DAISHA Administration Dorzolamide HCl 1 drop 05/05/19 22:00 05/06/19 07:42 Trusopt 2% OU Not Given TID [facility] Ezetimibe 10 mg 05/06/19 10:00 Zetia - PO DAILY [facility] Heparin Sodium (Porcine) 5,000 unit 05/05/19 22:00 05/06/19 06:56 Heparin - SQ 5,000 unit TID DAISHA Administration Sodium Chloride 1,000 mls @ 42 mls/hr 05/05/19 17:15 05/05/19 17:54 Normal Saline - IV 42 mls/hr ASDIR DAISHA Administration Sodium Chloride 1,000 mls @ 42 mls/hr 05/05/19 20:15 05/05/19 20:34 Normal Saline - IV 42 mls/hr ASDIR DAISHA Administration Ceftriaxone Sodium 1 gm/ 50 mls @ 100 mls/hr 05/06/19 10:00 Dextrose IVPB DAILY DAISHA Protocol Insulin Aspart 1 vial 05/05/19 22:00 05/06/19 06:52 Novolog Vial Sliding Scale - SQ 10 units ACHS DAISHA Administration Protocol Insulin Detemir 22 units 05/06/19 22:00 Levemir Vial SQ HS DAISHA Latanoprost 1 drop 05/05/19 22:00 05/05/19 23:59 Xalatan 0.005% Eye Drops - OU Not Given HS DAISHA Memantine 10 mg 05/05/19 22:00 05/05/19 23:58 Namenda - PO 10 mg BID DAISHA Administration Nebivolol 5 mg 05/05/19 22:00 05/05/19 23:59 Bystolic - PO 5 mg HS DAISHA Administration Tamsulosin HCl 0.4 mg 05/05/19 22:00 05/05/19 23:58 Flomax - PO 0.4 mg BID DAISHA Administration ASSESSMENT/PLAN: This is a 78 yo m with PMH of IDDM, CAD s/p CABG 20 yrs ago, s/p SD, HFPEF, HTN , HLD, legally blind due to DM, right hip ORIF, Dementia, CKD stage III, asthma , who was admitted due to weakness and possible AMS weakness and AMS IDDM CAD s/p CABG, Past SD HFPEF CKD III HTN HLD Dementia hyperkalemia abdominal discomfort -r/o infectious process. UTI likely [id number] pyuria. on empiric rocephin; f/ u cultures. -ct head unremarkable for acute cva, possible metabolic encephalopathy. patient now at mental baseline per family -poorly controlled DM. levemir 22 hs, Iss -mild kyperkalemia likely due to hyperglycemia this morning. no gap, bicarb wnl. s/p 500 cc saline bolus. hold lasix. f/u ekg and repeat bmp -abd ct appreciated, most likely gassy + normal bm -continue home nebivolol -continue zetia -on dual antiplatelet -continue flomax -PT -hep ppx. May dc tomorrow Problem List - Problems (1) KIKI (acute kidney injury) Code(s): N17.9 - ACUTE KIDNEY FAILURE, UNSPECIFIED (2) Altered mental status Code(s): R41.82 - ALTERED MENTAL STATUS, UNSPECIFIED Qualifiers: Altered mental status type: somnolence Qualified Code(s): R40.0 - Somnolence (3) Dehydration Code(s): E86.0 - DEHYDRATION (4) Hyperglycemia Code(s): R73.9 - HYPERGLYCEMIA, UNSPECIFIED Visit type - Emergency Visit Emergency Visit: Yes ED Registration Date: 05/05/19 Care time: The patient presented to the Emergency Department on the above date and was hospitalized for further evaluation of their emergent condition. - New Patient This patient is new to me today: No - Critical Care Critical Care patient: No - Discharge Referral Referred to [facility] Med P.C.: No
--- NOTE | 2019-05-06 10:56 | PN ---
Teaching Attending Note Name of Resident: Felisha Romero ATTENDING PHYSICIAN STATEMENT I saw and evaluated the patient. I reviewed the resident's note and discussed the case with the resident. I agree with the resident's findings and plan as documented with exceptions below. SUBJECTIVE: Patient seen and examined. Sleeping but arousable, oriented to self but not place or time. Denies any pain,dyspnea or complaints. OBJECTIVE: Vital Signs Period Temp Pulse Resp BP Sys/Poole Pulse Ox Last 24 Hr 97.4 F-99.0 F 63-69 16-20 136-150/54-74 100-100 Intake & Output 05/03/19 05/04/19 05/05/19 05/06/19 23:59 23:59 23:59 23:59 Intake Total 600 450 Balance 600 450 Weight 133 lb 6 oz General: sleeping but arousable, responds appropriately, no acute distress Chest: decreased effort, no rales or wheezing appreciated, exam limited by habitus and effort Abdomen:soft, obese, NT Extremities; no pedal edema Neuro: sleeping but arousable, oriented to self, not to time or place, opens eyes, moves all extremities freely, follows simple commands, no gross deficit but limited exam due to lack of full co-operation Home Medications Medication Instructions Recorded Allopurinol [Zyloprim -] 100 mg PO DAILY 05/06/19 Atorvastatin Ca [Lipitor] 40 mg PO DAILY 05/06/19 Cholecalciferol (Vitamin D3) 1,000 unit PO DAILY 05/06/19 [Vitamin D3] Clopidogrel Bisulfate [Plavix] 75 mg PO DAILY 05/06/19 Furosemide 40 mg PO DAILY 05/06/19 Insulin Glargine,Hum.rec.anlog 50 unit SQ DAILY 05/06/19 [Lantus] Insulin Lispro [Humalog] 1 unit SQ ASDIR 05/06/19 Levomefolate/B6/B12/Algal Oil 1 each PO DAILY 05/06/19 [Metanx Capsule] Losartan Potassium [Cozaar -] 50 mg PO DAILY 05/06/19 Nebivolol [Bystolic -] 5 mg PO DAILY 05/06/19 [place]-3S/Dha/Epa/Fish Oil [Fish 1 each PO DAILY 05/06/19 Oil [place]-3 Softgel] Spironolactone [Aldactone] 50 mg PO DAILY 05/06/19 Tamsulosin HCl [Flomax] 0.4 mg PO DAILY 05/06/19 Active Medications Acetaminophen (Tylenol -) 650 mg PO Q4H PRN PRN Reason: PAIN LEVEL 1-5 Last Admin: 05/05/19 23:57 Dose: 650 mg Albuterol/Ipratropium (Duoneb -) 1 amp NEB RQID [facility] Last Admin: 05/06/19 07:40 Dose: 1 amp Aspirin (Asa -) 81 mg PO DAILY [facility] Last Admin: 05/05/19 20:34 Dose: 81 mg Atorvastatin Calcium (Lipitor -) 80 mg PO HS [facility] Last Admin: 05/05/19 23:58 Dose: 80 mg Clopidogrel Bisulfate (Plavix -) 75 mg PO DAILY [facility] Last Admin: 05/05/19 20:34 Dose: 75 mg Dorzolamide HCl (Trusopt 2%) 1 drop OU TID [facility] Last Admin: 05/06/19 07:42 Dose: Not Given Ezetimibe (Zetia -) 10 mg PO DAILY [facility] Heparin Sodium (Porcine) (Heparin -) 5,000 unit SQ TID [facility] Last Admin: 05/06/19 06:56 Dose: 5,000 unit Ceftriaxone Sodium 1 gm/ (Dextrose) 50 mls @ 100 mls/hr IVPB DAILY [facility]; Protocol Insulin Aspart (Novolog Vial Sliding Scale -) 1 vial SQ [facility]; Protocol Last Admin: 05/06/19 06:52 Dose: 10 units Insulin Detemir (Levemir Vial) 22 units SQ [facility] Latanoprost (Xalatan 0.005% Eye Drops -) 1 drop OU HS [facility] Last Admin: 05/05/19 23:59 Dose: Not Given Memantine (Namenda -) 10 mg PO BID [facility] Last Admin: 05/05/19 23:58 Dose: 10 mg Nebivolol (Bystolic -) 5 mg PO HS [facility] Last Admin: 05/05/19 23:59 Dose: 5 mg Tamsulosin HCl (Flomax -) 0.4 mg PO BID [facility] Last Admin: 05/05/19 23:58 Dose: 0.4 mg Laboratory Results - last 24 hr 05/05/19 05/05/19 05/05/19 08:14 17:30 17:30 WBC 11.0 H RBC 4.29 Hgb 12.5 Hct 37.3 MCV 86.9 MCH 29.1 MCHC 33.5 RDW 13.6 Plt Count 142 D MPV 9.3 Absolute Neuts (auto) 6.5 Neutrophils % 59.3 D Lymphocytes % 24.7 D Monocytes % 10.3 H Eosinophils % 4.7 H D Basophils % 1.0 Nucleated RBC % 0 Platelet Estimate Adequate Platelet Comment Plts.reviewed PT with INR 14.00 H INR 1.18 H PTT (Actin FS) Sodium Potassium Chloride Carbon Dioxide Anion Gap BUN Creatinine Est GFR (CKD-EPI)AfAm Est GFR (CKD-EPI)NonAf POC Glucometer Random Glucose Lactic Acid Calcium Phosphorus Magnesium Total Bilirubin AST ALT Alkaline Phosphatase Creatine Kinase Troponin I Total Protein Albumin Urine Color Urine Appearance Urine pH Ur Specific [place] Urine Protein Urine Glucose (UA) Urine Ketones Urine Blood Urine Nitrite Urine Bilirubin Urine Urobilinogen Ur Leukocyte Esterase Urine WBC (Auto) Urine RBC (Auto) Urine Casts (Auto) U Epithel Cells (Auto) Urine Bacteria (Auto) Blood Type O POSITIVE Antibody Screen 05/05/19 05/05/19 05/05/19 17:30 17:30 17:30 WBC RBC Hgb Hct MCV MCH MCHC RDW Plt Count MPV Absolute Neuts (auto) Neutrophils % Lymphocytes % Monocytes % Eosinophils % Basophils % Nucleated RBC % Platelet Estimate Platelet Comment PT with INR INR PTT (Actin FS) Sodium 141 Potassium 4.4 Chloride 106 Carbon Dioxide 27 Anion Gap 8 BUN 42.4 H Creatinine 1.5 H Est GFR (CKD-EPI)AfAm 50.95 Est GFR (CKD-EPI)NonAf 43.96 POC Glucometer Random Glucose 99 Lactic Acid 1.2 Calcium 8.7 Phosphorus Magnesium Total Bilirubin 0.3 AST 23 ALT 20 Alkaline Phosphatase 136 H Creatine Kinase 145 Troponin I < 0.02 Total Protein 6.8 Albumin 3.3 L Urine Color Urine Appearance Urine pH Ur Specific [place] Urine Protein Urine Glucose (UA) Urine Ketones Urine Blood Urine Nitrite Urine Bilirubin Urine Urobilinogen Ur Leukocyte Esterase Urine WBC (Auto) Urine RBC (Auto) Urine Casts (Auto) U Epithel Cells (Auto) Urine Bacteria (Auto) Blood Type O POSITIVE Antibody Screen Negative 05/05/19 05/05/19 05/06/19 17:40 20:50 05:32 WBC RBC Hgb Hct MCV MCH MCHC RDW Plt Count MPV Absolute Neuts (auto) Neutrophils % Lymphocytes % Monocytes % Eosinophils % Basophils % Nucleated RBC % Platelet Estimate Platelet Comment PT with INR INR PTT (Actin FS) Sodium Potassium Chloride Carbon Dioxide Anion Gap BUN Creatinine Est GFR (CKD-EPI)AfAm Est GFR (CKD-EPI)NonAf POC Glucometer 377 Random Glucose Lactic Acid Calcium Phosphorus 3.5 Magnesium 2.5 H Total Bilirubin AST ALT Alkaline Phosphatase Creatine Kinase Troponin I Total Protein Albumin Urine Color Yellow Urine Appearance Clear Urine pH 5.5 Ur Specific [place] 1.013 Urine Protein Negative Urine Glucose (UA) Negative Urine Ketones Negative Urine Blood Negative Urine Nitrite Negative Urine Bilirubin Negative Urine Urobilinogen 1.0 Ur Leukocyte Esterase 2+ H Urine WBC (Auto) 52 Urine RBC (Auto) 2 Urine Casts (Auto) 1 U Epithel Cells (Auto) 0.6 Urine Bacteria (Auto) 38.1 Blood Type Antibody Screen 05/06/19 05/06/19 05/06/19 06:33 06:33 06:33 WBC 8.4 RBC 4.13 Hgb 12.2 Hct 35.5 MCV 85.9 MCH 29.5 MCHC 34.3 RDW 13.6 Plt Count MPV 9.3 Absolute Neuts (auto) 4.9 Neutrophils % 57.9 Lymphocytes % 26.6 Monocytes % 9.2 Eosinophils % 5.3 H Basophils % 1.0 Nucleated RBC % 0 Platelet Estimate Platelet Comment PT with INR 14.50 H INR 1.23 H PTT (Actin FS) 51.5 H Sodium 138 Potassium 5.4 H Chloride 106 Carbon Dioxide 24 Anion Gap 8 BUN 39.6 H Creatinine 1.5 H Est GFR (CKD-EPI)AfAm 50.95 Est GFR (CKD-EPI)NonAf 43.96 POC Glucometer Random Glucose 354 H* Lactic Acid Calcium 8.8 Phosphorus 3.0 Magnesium 2.6 H Total Bilirubin 0.4 AST 18 ALT 19 Alkaline Phosphatase 147 H Creatine Kinase Troponin I < 0.02 Total Protein 6.5 Albumin 3.1 L Urine Color Urine Appearance Urine pH Ur Specific [place] Urine Protein Urine Glucose (UA) Urine Ketones Urine Blood Urine Nitrite Urine Bilirubin Urine Urobilinogen Ur Leukocyte Esterase Urine WBC (Auto) Urine RBC (Auto) Urine Casts (Auto) U Epithel Cells (Auto) Urine Bacteria (Auto) Blood Type Antibody Screen CT brain/A/P and duplex results reviewed ASSESSMENT AND PLAN: 78 yom with PMhx of IDDM, legally blind, CD s/p [place]/CABG (over 20 years ago), Diastolic HF, HTN, HLD, right hip ORIF, Dementia, CKD stage III, asthma admitted with weakness and ?AMS. -Weakness, r/o infectious process -?AMS, toxic metabolic encephalopathy from Hyperglycemia/dehydration/UTI vs progression of dementia with waxing/waning mental status -IDDM, poorly controlled (last A1c >11 per son) -Hyperkalemia, ?from hyperglycemia related hydration/KIKI vs hemolysis -CAD s/p CABG/NM -Diastolic HF -HTN -HLD -CKD stage III -Dementia Plan: CT brain/A/P neg for concerns. ua not convincing for infectious process. Emperic ceftriaxone and follow up urine cultures. Unclear if event prior to admission suggestive of progression of his underlying dementia with waxing and waning mental status. Per son, close to baseline. D/c IVF. Hold lasix today. Monitor volume status and K levels. Patient on V-GO insulin pump and tresiba at home, currently on hold. Will place on levemir 15 units starting now and titrate as needed. ISS. diabetic diet. Continue bystolic/plavix/statin/flomax. DVTPPX heparin PT eval and OOB today Plan discussed with son in detail, meds reconciled. Son requesting social work input to arrange for additional help at home. DIspo d/c in 24 hours if doing well, w/u neg and no new concerns and disposition arranged.
[2019-05-06] MEDS ORDERED: INSULIN (LEVEMIR) 100 UNITS/ML UNITS SQ SCH ×2 (11:15→22:00)
--- NOTE | 2019-05-06 11:40 | EKG ---
Test Reason : Blood Pressure : / mmHG Vent. Rate : 061 BPM Atrial Rate : 061 BPM P-R Int : 162 ms QRS Dur : 086 ms QT Int : 462 ms P-R-T Axes : 079 030 088 degrees QTc Int : 465 ms NORMAL SINUS RHYTHM CANNOT RULE OUT INFERIOR INFARCT , AGE UNDETERMINED ABNORMAL ECG WHEN COMPARED WITH ECG OF 11-JAN-2019 12:11, RR INVERVAL IS REGULAR Confirmed by BRENDA WELDON, VAUGHN ([id number]) on 05/06/2019 11:39:48 AM Referred By: Confirmed By:VAUGHN GUTIERREZ MD
[2019-05-06] MEDS: CLOPIDOGREL BISULFATE 75 MG TABLET (FP) PO SCH (12:26)
[2019-05-06] MEDS: ASPIRIN 81 MG CHEWABLE TABLETS PO SCH (12:26)
[2019-05-06] MEDS: CEFTRIAXONE 1 GM in DEXTROSE 5%-WATER - 50 ML IVPB SCH (12:27)
[2019-05-06] MEDS: INSULIN (LEVEMIR) 100 UNITS/ML UNITS SQ SCH (13:17)
[2019-05-06 13:33] LABS: CREATININE 1.5 mg/dL (0.55-1.3); POTASSIUM 4.5 mmol/L (3.5-5.1)
[2019-05-06] MEDS: ACETAMINOPHEN 325 MG TABLET (FP) PO PRN (13:37)
[2019-05-06] MEDS: TAMSULOSIN HCL 0.4 MG CAP PO SCH (15:35)
[2019-05-06] MEDS: MEMANTINE HCL 10 MG TABLET (FP) PO SCH (15:35)
[2019-05-06] MEDS ORDERED: ATORVASTATIN CA 80 MG TABLET (FP) PO SCH (22:00)
[2019-05-06] MEDS: NEBIVOLOL 5 MG TABLET (FP) PO SCH (22:55)
[2019-05-06] MEDS: LATANOPROST 0.005% OPHTH SOLN 2.5ML BOTTLE OU SCH (23:14)
[2019-05-07] MEDS: HEPARIN NA (PORCINE) 5,000 UNITS/ML 1ML VIAL SQ SCH ×2 (06:52→13:40)
[2019-05-07] MEDS: INSULIN SLIDING SCALE (NOVOLOG) 1 VIAL SQ SCH ×2 (06:52→12:13)
[2019-05-07] MEDS: DORZOLAMIDE 2% HCL OPHTHALMIC SOLUTION 10 ML BOTTLE OU SCH ×2 (06:53→13:41)
[2019-05-07] MEDS: ALBUTEROL SO4 2.5/IPRATROPIUM 0.5 INH SOL 3 ML VIAL.NEB. NEB SCH ×2 (08:11→13:48)
[2019-05-07] MEDS ORDERED: cefTRIAXone SODIUM 1 GM VIAL ONE (08:14)
[2019-05-07] MEDS ORDERED: DEXTROSE 5%-WATER - 50 ML IVPB ONE (08:14)
--- NOTE | 2019-05-07 08:27 | PN ---
Physical Exam: SUBJECTIVE: Patient seen and examined patient resting in bed nad, no acute events, afebrile hemodynamically stable. denies abd pain, n/v/d/c. denies f/c. oriented only to self, baseline mental status per family OBJECTIVE: Vital Signs Period Temp Pulse Resp BP Sys/Poole Pulse Ox Last 24 Hr 97.4 F-98.3 F 60-80 18-20 128-150/55-72 99-99 GENERAL: The patient is awake, oriented only to self, confused. HEAD: Normal with no signs of trauma. EYES: sclera anicteric, conjunctiva clear. No ptosis. ENT: moist mucous membranes. NECK: supple. LUNGS: Breath sounds equal, clear to auscultation bilaterally HEART: Regular rate and rhythm, S1, S2 systolic murmur ABDOMEN: Soft, mildly tender LUQ, feels full of stool, nondistended, normoactive bowel sounds, no guarding, no rebound EXTREMITIES: 2+ pulses, warm, well-perfused, no edema. NEUROLOGICAL: Cranial nerves II through XII grossly intact PSYCH: calm SKIN: Warm, dry Laboratory Results - last 24 hr 05/05/19 05/06/19 05/06/19 08:14 06:33 12:12 Plt Count 117 L Sodium Potassium Chloride Carbon Dioxide Anion Gap BUN Creatinine Est GFR (CKD-EPI)AfAm Est GFR (CKD-EPI)NonAf POC Glucometer 210 Random Glucose Calcium Blood Type O POSITIVE 05/06/19 05/06/19 05/06/19 12:43 17:18 23:06 Plt Count Sodium 141 Potassium 4.5 Chloride 108 H Carbon Dioxide 26 Anion Gap 7 L BUN 34.0 H Creatinine 1.5 H Est GFR (CKD-EPI)AfAm 50.95 Est GFR (CKD-EPI)NonAf 43.96 POC Glucometer 422 335 Random Glucose 312 H* Calcium 9.0 Blood Type 05/07/19 06:05 Plt Count Sodium Potassium Chloride Carbon Dioxide Anion Gap BUN Creatinine Est GFR (CKD-EPI)AfAm Est GFR (CKD-EPI)NonAf POC Glucometer 210 Random Glucose Calcium Blood Type Active Medications Generic Name Dose Route Start Last Admin Trade Name Freq PRN Reason Stop Dose Admin Acetaminophen 650 mg 05/05/19 21:39 05/06/19 13:37 Tylenol - PO 650 mg Q4H PRN Administration PAIN LEVEL 1-5 Albuterol/Ipratropium 1 amp 05/06/19 08:00 05/07/19 08:11 Duoneb - NEB 1 amp RQID [facility] Administration Aspirin 81 mg 05/05/19 20:30 05/06/19 12:26 Asa - PO 81 mg DAILY [facility] Administration Atorvastatin Calcium 80 mg 05/06/19 22:00 05/06/19 22:55 Lipitor - PO 80 mg HS [facility] Administration Clopidogrel Bisulfate 75 mg 05/05/19 20:30 05/06/19 12:26 Plavix - PO 75 mg DAILY [facility] Administration Dorzolamide HCl 1 drop 05/05/19 22:00 05/07/19 06:53 Trusopt 2% OU 1 drop TID [facility] Administration Ezetimibe 10 mg 05/07/19 22:00 Zetia - PO HS [facility] Heparin Sodium (Porcine) 5,000 unit 05/05/19 22:00 05/07/19 06:52 Heparin - SQ 5,000 unit TID [facility] Administration Ceftriaxone Sodium 1 gm/ 50 mls @ 100 mls/hr 05/06/19 10:00 05/06/19 12:27 Dextrose IVPB 100 mls/hr DAILY [facility] Administration Protocol Insulin Aspart 1 vial 05/05/19 22:00 05/07/19 06:52 Novolog Vial Sliding Scale - SQ 4 units ACHS [facility] Administration Protocol Insulin Detemir 15 units 05/06/19 11:15 05/06/19 13:17 Levemir Vial SQ 15 unit DAILY [facility] Administration Latanoprost 1 drop 05/05/19 22:00 05/06/19 23:14 Xalatan 0.005% Eye Drops - OU Not Given HS [facility] Nebivolol 5 mg 05/05/19 22:00 05/06/19 22:55 Bystolic - PO 5 mg HS [facility] Administration Tamsulosin HCl 0.8 mg 05/07/19 08:30 Flomax - PO DAILY@0830 [facility] ASSESSMENT/PLAN: This is a 78 yo m with PMH of IDDM, CAD s/p CABG 20 yrs ago, s/p NC, HFPEF, HTN , HLD, legally blind due to DM, right hip ORIF, Dementia, CKD stage III, asthma , who was admitted due to weakness and possible AMS weakness and AMS IDDM CAD s/p CABG, Past NC HFPEF CKD III HTN HLD Dementia hyperkalemia abdominal discomfort -r/o infectious process. UTI likely [id number] pyuria. on empiric rocephin; f/ u cultures. -ct head unremarkable for acute cva, possible metabolic encephalopathy. patient now at mental baseline per family -poorly controlled DM. levemir 22 hs, Iss -mild kyperkalemia likely due to hyperglycemia this morning. no gap, bicarb wnl. s/p 500 cc saline bolus. hold lasix. f/u ekg and repeat bmp -abd ct appreciated, most likely gassy + normal bm -continue home nebivolol -continue zetia -on dual antiplatelet -continue flomax -PT -hep ppx. May dc tomorrow Problem List - Problems (1) KIKI (acute kidney injury) Code(s): N17.9 - ACUTE KIDNEY FAILURE, UNSPECIFIED (2) Altered mental status Code(s): R41.82 - ALTERED MENTAL STATUS, UNSPECIFIED Qualifiers: Altered mental status type: somnolence Qualified Code(s): R40.0 - Somnolence (3) Dehydration Code(s): E86.0 - DEHYDRATION (4) Hyperglycemia Code(s): R73.9 - HYPERGLYCEMIA, UNSPECIFIED
[2019-05-07] MEDS ORDERED: TAMSULOSIN HCL 0.4 MG CAP PO SCH (08:30)
[2019-05-07 08:48] LABS: BLOOD UREA NITROGEN 30.3 mg/dL (7-18); CALCIUM 9.2 mg/dL (8.5-10.1); CREATININE 1.4 mg/dL (0.55-1.3); MAGNESIUM 2.5 mg/dL (1.8-2.4); PHOSPHOROUS 3.5 mg/dL (2.5-4.9); POTASSIUM 4.6 mmol/L (3.5-5.1)
[2019-05-07 08:54] LABS: BASO % 1.1 % (0-2.0); EOS % 6.4 % (0-4.5); HEMATOCRIT 34.7 % (35.4-49); HEMOGLOBIN 11.8 GM/dL (11.7-16.9); LYMPH % 25.7 % (8-40); MCH 29.5 pg (25.7-33.7); MCHC 34.1 g/dl (32.0-35.9); MEAN CELL VOLUME 86.5 fl (80-96); MEAN PLT VOLUME 9.8 fl (7.5-11.1); MONO % 9.7 % (3.8-10.2); NEUT % 57.1 % (42.8-82.8); PLATELET COUNT 118 K/MM3 (134-434); RBC 4.01 M/mm3 (4.00-5.60); RDW 13.6 % (11.9-15.9); WHITE BLOOD COUNT 7.9 K/mm3 (4.0-10.0)
[2019-05-07] MEDS: ASPIRIN 81 MG CHEWABLE TABLETS PO SCH (09:55)
[2019-05-07] MEDS: CLOPIDOGREL BISULFATE 75 MG TABLET (FP) PO SCH (09:55)
[2019-05-07] MEDS: CEFTRIAXONE 1 GM in DEXTROSE 5%-WATER - 50 ML IVPB SCH (09:55)
[2019-05-07] MEDS: INSULIN (LEVEMIR) 100 UNITS/ML UNITS SQ SCH (09:55)
--- NOTE | 2019-05-07 12:38 | DS ---
Physical Exam: SUBJECTIVE: Patient seen and examined patient resting in bed nad, no acute events, afebrile hemodynamically stable. denies abd pain, n/v/d/c. denies f/c. oriented only to self, baseline mental status per family OBJECTIVE: Vital Signs Period Temp Pulse Resp BP Sys/Poole Pulse Ox Last 24 Hr 97.4 F-98.8 F 60-78 18-20 128-150/55-72 98-99 PHYSICAL EXAM GENERAL: The patient is awake, oriented only to self, confused. HEAD: Normal with no signs of trauma. EYES: sclera anicteric, conjunctiva clear. No ptosis. ENT: moist mucous membranes. NECK: supple. LUNGS: Breath sounds equal, clear to auscultation bilaterally HEART: Regular rate and rhythm, S1, S2 systolic murmur ABDOMEN: Soft, mildly tender LUQ, feels full of stool, nondistended, normoactive bowel sounds, no guarding, no rebound EXTREMITIES: 2+ pulses, warm, well-perfused, no edema. NEUROLOGICAL: Cranial nerves II through XII grossly intact PSYCH: calm SKIN: Warm, dry LABS Laboratory Results - last 24 hr 05/06/19 05/06/19 05/06/19 12:12 12:43 17:18 WBC RBC Hgb Hct MCV MCH MCHC RDW Plt Count MPV Absolute Neuts (auto) Neutrophils % Lymphocytes % Monocytes % Eosinophils % Basophils % Nucleated RBC % Sodium 141 Potassium 4.5 Chloride 108 H Carbon Dioxide 26 Anion Gap 7 L BUN 34.0 H Creatinine 1.5 H Est GFR (CKD-EPI)AfAm 50.95 Est GFR (CKD-EPI)NonAf 43.96 POC Glucometer 210 422 Random Glucose 312 H* Calcium 9.0 Phosphorus Magnesium 05/06/19 05/07/19 05/07/19 23:06 06:05 07:15 WBC 7.9 RBC 4.01 Hgb 11.8 Hct 34.7 L MCV 86.5 MCH 29.5 MCHC 34.1 RDW 13.6 Plt Count 118 L MPV 9.8 Absolute Neuts (auto) 4.5 Neutrophils % 57.1 Lymphocytes % 25.7 Monocytes % 9.7 Eosinophils % 6.4 H Basophils % 1.1 Nucleated RBC % 0 Sodium Potassium Chloride Carbon Dioxide Anion Gap BUN Creatinine Est GFR (CKD-EPI)AfAm Est GFR (CKD-EPI)NonAf POC Glucometer 335 210 Random Glucose Calcium Phosphorus Magnesium 05/07/19 05/07/19 07:15 12:06 WBC RBC Hgb Hct MCV MCH MCHC RDW Plt Count MPV Absolute Neuts (auto) Neutrophils % Lymphocytes % Monocytes % Eosinophils % Basophils % Nucleated RBC % Sodium 141 Potassium 4.6 Chloride 109 H Carbon Dioxide 27 Anion Gap 6 L BUN 30.3 H Creatinine 1.4 H Est GFR (CKD-EPI)AfAm 55.38 Est GFR (CKD-EPI)NonAf 47.78 POC Glucometer 422 Random Glucose 240 H Calcium 9.2 Phosphorus 3.5 Magnesium 2.5 H HOSPITAL COURSE: Date of Admission:05/05/19 This is a 78 yo m with PMH of IDDM, CAD s/p CABG 20 yrs ago, s/p MS, HFPEF, HTN , HLD, legally blind due to DM, right hip ORIF, Dementia, CKD stage III, asthma , who was admitted due to weakness and possible AMS. On hospital day 1 patients mental status was back at baseline. His UA was + Pyuria but it wasn't clear whether this was a symptomatic UTI. He received 3 stevens of IV abx and was sent home on 5 days of PO moxicillin for urine culture showing coag negative staph. Date of Discharge: 05/07/19 Minutes to complete discharge: 35 Discharge Summary Reason For Visit: ACUTE KIDNEY INJURY/WEAKNESS/ALTERED MENTAL STATUS Current Active Problems KIKI (acute kidney injury) (Acute) Altered mental status (Acute) Condition: Stable - Instructions Diet, Activity, Other Instructions: You were seen in the hospital for weakness. Based on your hospital tests and labs, there is a possibility that you had a urinary infection. You received 3 days of IV antibiotics and now will need to continue taking oral antibiotics for 5 days Antibiotic: Take Amoxicillin 500 three times a day starting tomorrow for 5 days. Continue other medications as before Return to the hospital if severe symptoms recur Disposition: HOME - Home Medications Comprehensive Discharge Medication List: Ambulatory Orders Atorvastatin Ca [Lipitor] 80 mg PO DAILY 05/06/19 Clopidogrel Bisulfate [Plavix] 75 mg PO DAILY 05/06/19 Ezetimibe 10 mg PO HS 05/06/19 Furosemide 40 mg PO DAILY 05/06/19 Insulin Degludec [Tresiba] 6 unit SQ HS 05/06/19 Insulin Pump [Insulin Pump - (Nf)] 1 each NR DAILY 05/06/19 Nebivolol HCl [Bystolic] 2.5 mg PO HS 05/06/19 Tamsulosin HCl 0.4 mg PO DAILY 05/06/19 Amoxicillin - [Amoxicillin 500mg Capsule -] 500 mg PO TID #15 capsule 05/07/19 Problem List - Problems (1) KIKI (acute kidney injury) Code(s): N17.9 - ACUTE KIDNEY FAILURE, UNSPECIFIED (2) Altered mental status Code(s): R41.82 - ALTERED MENTAL STATUS, UNSPECIFIED Qualifiers: Altered mental status type: somnolence Qualified Code(s): R40.0 - Somnolence (3) Dehydration Code(s): E86.0 - DEHYDRATION (4) Hyperglycemia Code(s): R73.9 - HYPERGLYCEMIA, UNSPECIFIED This patient is new to me today: No Emergency Visit: Yes ED Registration Date: 05/05/19 Care time: The patient presented to the Emergency Department on the above date and was hospitalized for further evaluation of their emergent condition. Critical Care patient: No - Discharge Referral Referred to [facility] Med P.C.: No
--- NOTE | 2019-05-07 12:45 | PN ---
Teaching Attending Note Name of Resident: Felisha Romero ATTENDING PHYSICIAN STATEMENT I saw and evaluated the patient. I reviewed the resident's note and discussed the case with the resident. I agree with the resident's findings and plan as documented with exceptions below. SUBJECTIVE: Patient seen and examined. eating, does not want pureed diet. No complaints otherwise, oriented to self. OBJECTIVE: Vital Signs Period Temp Pulse Resp BP Sys/Poole Pulse Ox Last 24 Hr 97.4 F-98.8 F 60-78 18-20 128-150/55-72 98-99 Intake & Output 05/04/19 05/05/19 05/06/19 05/07/19 23:59 23:59 23:59 23:59 Intake Total 600 2200 240 Output Total 250 Balance 600 1950 240 Weight 133 lb 6 oz ASSESSMENT AND PLAN: 78 yom with PMhx of IDDM, legally blind, CD s/p [place]/CABG (over 20 years ago), Diastolic HF, HTN, HLD, right hip ORIF, Dementia, CKD stage III, asthma admitted with weakness and ?AMS. -Weakness, r/o infectious process -?AMS, toxic metabolic encephalopathy from Hyperglycemia/dehydration/UTI vs progression of dementia with waxing/waning mental status -IDDM, poorly controlled (last A1c >11 per son) -Hyperkalemia, ?from hyperglycemia related hydration/KIKI vs hemolysis -CAD s/p CABG/NH -Diastolic HF -HTN -HLD -CKD stage III -Dementia Plan: Mental status improved, at baseline. Urine cx noted. ua not convincing for infection. On ceftriaxone inhouse, short course of amoxicillin. Resume home meds Extensive discussion held with rell Loza yesterday. Requesting additional home help. PT bogdan noted, declines SNF, wants patient home, has private help. Home services arranged. D/c home with family with outpatient Follow up. Discussed with nursing and social work, all questions answered.
--- NOTE | 2019-05-07 12:47 | EKG ---
Test Reason : Blood Pressure : / mmHG Vent. Rate : 078 BPM Atrial Rate : 078 BPM P-R Int : 154 ms QRS Dur : 086 ms QT Int : 412 ms P-R-T Axes : 007 030 066 degrees QTc Int : 469 ms NORMAL SINUS RHYTHM CANNOT RULE OUT INFERIOR INFARCT (CITED ON OR BEFORE 05-MAY-2019) ABNORMAL ECG WHEN COMPARED WITH ECG OF 05-MAY-2019 17:56, NO SIGNIFICANT CHANGE WAS FOUND Confirmed by Gilson Hurd MD ([id number]) on 05/07/2019 12:47:32 PM Referred By: HAMLET JORGE DR Confirmed By:Gilson Hurd MD
[2019-05-07 16:27] VITALS: BP 140/60; PULSE 70; TEMP 98.4
[2019-05-07] MEDS ORDERED: EZETIMIBE 10 MG TABLET (FP) PO SCH (22:00)
== END 2019-05-07 15:18 | disposition home health service (06) | DRG 637 ==
LOC: JER 16:41 → JERBED 18:32 → J8W 23:10
PROVIDERS: ADMIT Internal Medicine; ATTEND Hospitalist
DX: E11.65 Type 2 diabetes mellitus with hyperglycemia (principal); G93.41 Metabolic encephalopathy; N17.9 Acute kidney failure, unspecified; N39.0 Urinary tract infection, site not specified; I13.0 Hypertensive heart and chronic kidney disease with heart failure and stage 1 through stage 4 chronic kidney disease, or unspecified chronic kidney disease; I50.30 Unspecified diastolic (congestive) heart failure; E46 Unspecified protein-calorie malnutrition; E86.0 Dehydration; E87.5 Hyperkalemia; N18.3 Chronic kidney disease, stage 3 (moderate); F03.90 Unspecified dementia, unspecified severity, without behavioral disturbance, psychotic disturbance, mood disturbance, and anxiety; H54.8 Legal blindness, as defined in USA; E78.5 Hyperlipidemia, unspecified; I25.10 Atherosclerotic heart disease of native coronary artery without angina pectoris; Z95.1 Presence of aortocoronary bypass graft; R41.82 Altered mental status, unspecified; Z79.4 Long term (current) use of insulin; E11.319 Type 2 diabetes mellitus with unspecified diabetic retinopathy without macular edema
CPT/HCPCS: 36415; 70450-TC; 71045-TC-FY; 74176-TC; 80048; 80053; 81003; 82550; 82962; 83605; 83735; 84100; 84484; 85025; 85610; 85730; 86850; 86900; 86901; 87040; 87086; 87186; 93005; 93010; 93970-TC; 94640; 97116-GP; 97161-GP; 99285-25; J1644; J7030

== ENCOUNTER 2019-09-01 20:36 | Inpatient (IN) | payer OTHER ==
--- NOTE | 2019-09-01 20:45 | PDOC ---
History of Present Illness - General Stated Complaint: DIABETES RELATED Time Seen by Provider: 09/01/19 20:44 History Source: EMS, Family Exam Limitations: Clinical Condition - History of Present Illness Initial Comments: Pt is a 79 yo M, with PMH of IDDM (with intermittent insulin pump usage), CAD, AR (s/p CABG and stents), CHF, CKD, asthma, and dementia, who is presenting from home via EMS for AMS and blood sugar reading >600 at home. Pt is accompanied by his and son. They state LWK was last night at 9 pm. Today pt seemed more lethargic than usual, and "was dragging his feet when he walks". Pt tolerated PO intake without vomiting and has had normal BMs. Son states pts BG is frequently >600, and did not take long-acting insulin due to not eating this morning. Son applied insulin pump (2 units aspart/hour) for 9 hours, which did not improve his symptoms. Family denies any fevers, vomiting, or diarrhea. Pt with dementia and due to clinical condition, cannot provide additional ROS. Allergies: NKDA PCP: Rosana Delgado Endo: Dr. Linder Cards: Dr. Diaz Social: Pt denies any cigarette, alcohol, or drug use. Pt denies any recent travel or sick contacts. Surgical: L hip surgery, remote; CABG as above Family: no relevant history. 09/01/19 21:30 09/01/19 22:04 Past History - Travel Traveled outside of the country in the last 30 days: No Close contact w/someone who was outside of country & ill: No - Past Medical History Allergies/Adverse Reactions: Allergies Allergy/AdvReac Type Severity Reaction Status Date / Time No Known Allergies Allergy Verified 01/11/19 11:57 Home Medications: Ambulatory Orders Atorvastatin Ca [Lipitor] 40 mg PO DAILY 05/06/19 Clopidogrel Bisulfate [Plavix] 75 mg PO DAILY 05/06/19 Ezetimibe 10 mg PO HS 05/06/19 Furosemide 20 mg PO DAILY 05/06/19 Insulin Degludec [Tresiba] 6 unit SQ HS 05/06/19 Insulin Pump [Insulin Pump - (Nf)] 1 each NR DAILY 05/06/19 Nebivolol HCl [Bystolic] 2.5 mg PO HS 05/06/19 Tamsulosin HCl 0.4 mg PO DAILY 05/06/19 Anemia: No Asthma: Yes Cancer: No Cardiac Disorders: Yes (cabg) CVA: No COPD: No CHF: No Dementia: No Diabetes: Yes GI Disorders: No Disorders: No HTN: Yes Hypercholesterolemia: Yes Liver Disease: No Seizures: No Thyroid Disease: No - Surgical History Abdominal Surgery: No Appendectomy: No Cardiac Surgery: Yes ('96) Cholecystectomy: No Lung Surgery: No Neurologic Surgery: No Orthopedic Surgery: Yes (rt hip orif) - Immunization History Immunization Up to Date: Yes - Psycho Social/Smoking Cessation Hx Smoking Status: No Smoking History: Never smoked Have you smoked in the past 12 months: No Number of Cigarettes Smoked Daily: 0 If you are a former smoker, when did you quit?: Hx Alcohol Use: No Drug/Substance Use Hx: No Substance Use Type: None Hx Substance Use Treatment: No Review of Systems - Review of Systems Able to Perform ROS?: No (see HPI) Is the patient limited Welsh proficient: Yes *Physical Exam - Physical Exam Comments: Vitals stable, pt afebrile by rectal temp. Obese body habitus. Pt appears ill, lethargic. Breath smells fruity. Pt will awaken to tactile stimuli, not responsive appropriately to commands or questions (worse from baseline) Pt not responding enough to evaluate full CN exam. Strength diminished but equal in all extremities. No obvious facial asymmetry. No midline spinal tenderness, step-offs, or crepitus. Head normocephalic, atraumatic. Eyes PERRLA, EOMI. Oropharynx without erythema or exudates, no LAD b/l. No nasal congestion. Hearing intact. Clear heart sounds, S1/S2, no JVD, b/l pedal edema, or heart murmur. Clear lung sounds, no respiratory distress, wheezes, crackles, or accessory muscle use. Diffuse upper abdominal TTP with mild distension. Bowel sounds normoactive. Skin without jaundice or rash. 09/01/19 22:07 09/01/19 22:23 ED Treatment Course - LABORATORY CBC & Chemistry Diagram: 09/01/19 21:00 09/01/19 23:00 Medical Decision Making - Medical Decision Making Pt was seen at bedside, also will be seen by attending Dr. Del Angel. Pt presenting with BMG >600, lethargic; will evaluate for DKA/HHS vs infection (UTI, pneumonia ), vs electrolyte abnormalities vs CVA vs ACS. Provided 1 L IV NS and 4 units IV insulin for improvement of hyperglycemia and hydration. Will continue to reassess pt and monitor for symptomatic improvement. ECG: NSR, intervals WNL (HR 84, AK 162, QRS 90, QTc 472). ST flattening in inferior leads (unchanged from prior ECG 05/06/2019) 09/01/19 22:26 CBC: WBC 18 CMP: Na 131 (corrected 140s), K 5.6 with no peaked Ts on EKG Glucose 916 with trace acetone -- likely DKA lipase WNL Will start insulin drip and switch to 1/2 NS ICU made aware Will draw additional BMP to monitor electrolyte changes q2hrs Pt in CT scan for CT head and abd/pelvis due to AMS and abdominal TTP. Will place arguello catheter for I/O and possible retention as pt has not urinated after IVF. 09/01/19 22:29 09/01/19 22:53 CT head: no acute pathology; markedly dilated ventricles (present on prior CT head) CT abd/pelvis: IMPRESSION: 1. Significant stool retention in the rectosigmoid colon with findings suggestive of early stercoral colitis. Please correlate clinically. No evidence for small bowel obstruction. 2. Mild hydroureteronephrosis secondary to urinary bladder distention. 3. Other incidental and senescent findings, as above. 09/01/19 22:55 Starting flagyl and levaquin to cover for potential UTI (arguello being placed) and colitis Paging hospitalist team for admission, placement in ICU for insulin drip and further management. 09/01/19 22:59 UA - +LE, negative nitrites; pt received levaquin Arguello cath has drained ~700 mL of clear urine. 09/01/19 23:38 Repeat BMP -- glucose 749, K 4.8 -- providing K rider Pt will go to ICU. Hemodynamically stable. 09/01/19 23:43 Discharge - Discharge Information Problems reviewed: Yes Clinical Impression/Diagnosis: KIKI (acute kidney injury), Obesity (BMI 30-39.9) DKA (diabetic ketoacidoses) Qualifiers: Diabetes mellitus type: type 2 Diabetes mellitus complication detail: without coma Qualified Code(s): E11.10 - Type 2 diabetes mellitus with ketoacidosis without coma Condition: Guarded - Admission Yes - Follow up/Referral - Patient Discharge Instructions - Post Discharge Activity
[2019-09-01] MEDS ORDERED: SODIUM CHLORIDE 0.9% 500 ML INFUS.BAG IV ONE (20:51)
[2019-09-01] MEDS ORDERED: INSULIN REGULAR HUMAN 100 UNITS/ML *VIAL IVPUSH ONE ×2 (20:52→21:53)
[2019-09-01] MEDS ORDERED: SODIUM CHLORIDE 1,000 ML IV STA (20:54)
[2019-09-01 21:19] LABS: BASO % 0.6 % (0-2.0); EOS % 0.1 % (0-4.5); HEMATOCRIT 42.1 % (35.4-49); HEMOGLOBIN 13.5 GM/dL (11.7-16.9); LYMPH % 5.4 % (8-40); MCH 28.9 pg (25.7-33.7); MCHC 32.1 g/dl (32.0-35.9); MEAN CELL VOLUME 89.8 fl (80-96); MEAN PLT VOLUME 10.3 fl (7.5-11.1); MONO % 9.3 % (3.8-10.2); NEUT % 84.6 % (42.8-82.8); PLATELET COUNT 191 K/MM3 (134-434); RBC 4.69 M/mm3 (4.00-5.60); RDW 13.7 % (11.9-15.9)
[2019-09-01 21:26] LABS: INR 1.15 (0.83-1.09); PROTHROMBIN TIME (PATIENT) 13.6 SEC (9.7-13.0)
--- NOTE | 2019-09-01 21:38 | PDOC ---
Attending Attestation - Resident Resident Name: Jessica Bell - ED Attending Attestation I have performed the following: I have examined & evaluated the patient, The case was reviewed & discussed with the resident, I agree w/resident's findings & plan - HPI HPI: 09/01/19 21:46 Pt comes with altered MS; he has very dry mucus membranes. He is confused. His blood sugar is 600 today and has been that high in the past. - Physicial Exam PE: 09/01/19 21:47 Pt has no fever; rectal temp afebrile. Pt has no pitting edema of ext. He has lower abdominal pain that is nonspecific. No rashes. Lung sounds clear. Pt has normal heart rate. - Medical Decision Making 09/01/19 21:48 IVF and labs and insulin and admit. 09/01/19 21:55 blood sugar is 916. 09/01/19 22:59 Patient Name: CHELSI JON THIS IS A PRELIMINARY REPORT FROM [facility] [facility] DATE OF SERVICE: 2019-09-01 21:44:32 IMAGES: 150 EXAM: HEAD CT WITHOUT CONTRAST HISTORY: Bilateral weakness. COMPARISON: Report from May 05, 2019. FINDINGS: No acute hemorrhage. Marked enlargement of the lateral ventricles, out of proportion to the degree of cortical atrophy. No extra-axial fluid collection. Extensive vascular calcifications. Periventricular hypodensities. No acute calvarial abnormalities. IMPRESSION: 1. No evidence for acute intracranial hemorrhage. 2. Constellation of findings which can be seen with normal pressure hydrocephalus. 3. Probable chronic ischemic small vessel disease. 09/01/19 22:59 Patient Name: CHELSI JON THIS IS A PRELIMINARY REPORT FROM [facility] DATE OF SERVICE: 2019-09-01 21:47:07 IMAGES: 447 EXAM: ABDOMEN \T\ PELVIS CT W/O CONTR HISTORY: Rule out ileus or obstruction COMPARISON: None. FINDINGS: Lung bases without acute abnormality. Coronary artery calcifications. Limited evaluation of the abdomen due to artifact from patient's arms. Mild bilateral hydroureteronephrosis likely secondary to distended urinary bladder. No appreciable urinary tract calculi. Bilateral renal cysts. Hiatal hernia. Large volume of stool seen in the rectosigmoid colon with minimal adjacent inflammatory change about the rectum seen on image 110 of series 4. Stool fills the remainder of the colon. Appendix normal. Extensive vascular calcifications of the abdomen and pelvis. Postsurgical changes of the left hip without evidence for acute complication. Extensive degenerative changes of the osseous structures without acute osseous abnormality. Small fat-containing umbilical hernia. IMPRESSION: 1. Significant stool retention in the rectosigmoid colon with findings suggestive of early stercoral colitis. Please correlate clinically. No evidence for small bowel obstruction. 2. Mild hydroureteronephrosis secondary to urinary bladder distention. 3. Other incidental and senescent findings, as above 09/01/19 23:33 Levaquin and flagyl for colitis. Pt also has bladder distension and hydroureter and haziness around the right kidney. ? pyelo/UTI/cystitis. However ua doesn't correspond with this. 09/02/19 01:17 ICU is aware od patient
[2019-09-01 21:50] LABS: ALBUMIN 3.3 g/dl (3.4-5.0); ALK PHOS 248 U/L (45-117); ANION GAP 16 MMOL/L (8-16); BILIRUBIN,TOTAL 0.5 mg/dL (0.2-1); BLOOD UREA NITROGEN 56.2 mg/dL (7-18); CALCIUM 9.6 mg/dL (8.5-10.1); CHLORIDE 91 mmol/L (98-107); CO2 24 mmol/L (21-32); CREATININE 2.5 mg/dL (0.55-1.3); POTASSIUM 5.6 mmol/L (3.5-5.1); SGOT/AST 13 U/L (15-37); SGPT/ALT 17 U/L (13-61); SODIUM 131 mmol/L (136-145); TOT PROT 7.6 g/dl (6.4-8.2)
[2019-09-01 21:52] LABS: ACETONE SERUM POSITIVE SMALL 1+ (NEGATIVE); GLUCOSE,RANDOM 916 mg/dL (74-106)
[2019-09-01] MEDS ORDERED: SODIUM CHLORIDE 0.45% 1,000 ML IV SCH (22:00)
[2019-09-01] MEDS ORDERED: INSULIN REGULAR 100 UNITS in SODIUM CHLORIDE 99 ML IVPB SCH (22:00)
[2019-09-01 22:47] LABS: LIPASE 114 U/L (73-393)
--- NOTE | 2019-09-01 23:02 | CONSULT ---
Consult - text type - Consultation Consultation Note: PULMONARY / CRITICAL CARE CONSULT NOTE: HPI: Briefly, a 78 y/o male with baseline dementia, Insulin dependant diabetic with diabetic retinopathy, CAD, CKD, CHF and COPD who presented to the ED with with AMS and abdominal pain. Labs were significant for serum glucose of 916, + serum ketones, no acidosis and an anion gap of 16. He also has a leukocytosis and KIKI. His baseline SCr is 1.5. He was give IV Insulin and IVF. CT of the head and abdomen are pending. UA, cultures and CXR are also pending. He is being admitted to the ICU. Current Medications Insulin Human Regular 100 (units/ Sodium Chloride) 100 mls @ 7.71 mls/hr IVPB TITR DAISHA; Protocol Last Admin: 09/01/19 22:25 Dose: 0.1 units/kg/hr, 7.71 mls/hr Sodium Chloride (1/2 Normal Saline) 1,000 mls @ 1,000 mls/hr IV ASDIR DAISHA Last Admin: 09/01/19 22:24 Dose: 1,000 mls/hr Vital Signs Temp 98.6 F 09/01/19 20:50 Pulse 86 09/01/19 20:50 Resp 18 09/01/19 20:50 BP 114/56 L 09/01/19 20:50 Pulse Ox 100 09/01/19 20:50 Intake & Output 09/01/19 09/01/19 09/02/19 06:59 18:59 06:59 Weight 77.111 kg Other: Height 5 ft Body Mass Index (BMI) 33.2 Weight Measurement Method Est/Stated by Patient EXAM: Gen: contracted Neuro: awake, not alert, moans and withdraws to pain, [place] HEENT: R cataract, no JVD Lungs: clear Heart: RRR Abd: soft, non-tender Ext: contracted, no edema Skin: warm, dry CBC, BMP 09/01/19 21:00 09/01/19 21:00 ASSESSMENT/PLAN: IDDM Hyperglycemia with Ketones, but no anion gap acidosis KIKI on CKD UTI Pseudohyponatremia Dementia CAD COPD CHF -Insulin drip - convert when able to tolerate PO -IV Fluids with frequent lung exams -Electrolyte replacement -Strong -Antibiotics for UTI -Follow up CT scans -DVT PPx -Remainder of plan per primary team Thank you for this interesting consult Stevie Noe Pulm/Critical Care LANDSCAPE TECHNICIAN
[2019-09-01 23:25] LABS: PH,URINE 5.5 (5.0-8.0); URINE APPEARANCE Clear; URINE BILIRUBIN Negative (NEGATIVE); URINE COLOR Yellow; URINE GLUCOSE (UA) 3+ (NEGATIVE); URINE KETONE 2+ (NEGATIVE); URINE LEUK ESTERASE 1+ (NEGATIVE); URINE NITRITE Negative (NEGATIVE); URINE PROTEIN Negative (NEGATIVE); URINE UROBILINOGEN 0.2 mg/dL (0.2-1.0)
[2019-09-01 23:39] LABS: BLOOD UREA NITROGEN 57.2 mg/dL (7-18); CALCIUM 9.5 mg/dL (8.5-10.1); CREATININE 2.3 mg/dL (0.55-1.3); POTASSIUM 4.8 mmol/L (3.5-5.1)
[2019-09-01] MEDS ORDERED: KCL 10 MEQ IVPB 10 MEQ/100 ML INFUS.BAG IVPB SCH (23:45)
[2019-09-01 23:47] LABS: EPI CELLS 0-5 /HPF (0-5/HPF); URINE BACTERIA MODERATE /hpf (NEGATIVE); URINE RBC 0-4 /hpf (0-4); URINE WBC 30-50 /hpf (0-5)
[2019-09-02] MEDS ORDERED: KCL 10 MEQ IVPB 10 MEQ/100 ML INFUS.BAG IVPB ONE (00:01)
[2019-09-02 01:04] LABS: ARTERIAL BLD GAS O2 SATURATION 96.8 % (95-98); ARTERIAL BLOOD GAS BASE EXCESS 0.5 meq/l (-2-2); ARTERIAL BLOOD GAS PCO2 38.6 mmHg (35-45); ARTERIAL BLOOD GAS PO2 84.6 mmHg (80-100); ARTERIAL BLOOD GAS pH 7.42 (7.35-7.45); CARBOXYHEMOGLOBIN 2.2 % (0-2)
[2019-09-02 01:06] LABS: ALLENS TEST POSITIVE
[2019-09-02 01:11] LABS: MAGNESIUM 3.1 mg/dL (1.8-2.4); PHOSPHOROUS 3.2 mg/dL (2.5-4.9)
--- NOTE | 2019-09-02 01:29 | HP ---
CHIEF COMPLAINT: PCP: Dr. Rosana Shahid HISTORY OF PRESENT ILLNESS: 79 y/o/m with PMHx of IDDM, CAD s/p CABG, [place] in 1997, CHF, CKD, COPD, dementia here for altered mental status BIB EMS from home. Patient unable to provide history secondary to mental status. History was obtained by his son over the phone as no one was present at bedside. As per the son the patient has not been acting at his baseline today. The patient has been eating, drinking, sitting up , and speaking at all. Patient has complained of abdominal pain as per family. The patient has blood sugars in 600s often as per the son. Today he was not given his long acting insulin because he was not eating in the morning. When his son checked his sugar, it was in the 600s, and the son started him on his insulin pump 2units/hr for 8-9 hours without improvement in the sugar level. Son is unsure when the patient last had a bowel movement but has been giving him colace twice a day for the last few months. As per the son the patient is legally blind. Patient lives at home with his (who has memory issues) and his other son. At baseline patient is able to vocalize pain and ask for things such as food and water, has not been doing that today but was at baseline yesterday as per the son. Patient usually wears a diaper but occasionally asks for a urinal. History from [facility] [phone] ER course was notable for: (1) BGM >600s, started on fluids and insulin (2) arguello catheter placed with drainage of >700ccs of urine (3) started on flagyl and levaquin for UTI (4) patient admitted to ICU PAST MEDICAL HISTORY: IDDM, CAD s/p CABG, [place] in 1997, CHF, CKD, COPD, dementia PAST SURGICAL HISTORY: CABG, R hip surgery Social History: Smoking: none Alcohol: none Drugs: none Allergies No Known Allergies Allergy (Verified 01/11/19 11:57) HOME MEDICATIONS: Home Medications Medication Instructions Recorded Atorvastatin Ca [Lipitor] 40 mg PO DAILY 05/06/19 Clopidogrel Bisulfate [Plavix] 75 mg PO DAILY 05/06/19 Ezetimibe 10 mg PO HS 05/06/19 Furosemide 20 mg PO DAILY 05/06/19 Insulin Degludec [Tresiba] 6 unit SQ HS 05/06/19 Insulin Pump [Insulin Pump - (Nf)] 1 each NR DAILY 05/06/19 Nebivolol HCl [Bystolic] 2.5 mg PO HS 05/06/19 Tamsulosin HCl 0.4 mg PO DAILY 05/06/19 REVIEW OF SYSTEMS Patient unable to provide ROS secondary to mental status PHYSICAL EXAMINATION Vital Signs - 24 hr 09/01/19 09/02/19 20:50 00:29 Temperature 98.6 F Pulse Rate 86 Pulse Rate [ 84 Right] Respiratory 18 17 Rate Blood Pressure 114/56 L Blood Pressure 125/65 [Right Arm] O2 Sat by Pulse 100 100 Oximetry (%) GENERAL: AAOx0, responds to painful stimuli HEAD: NC/AT EYES: severe conjunctival injection of right eye, cataracts of right eye, with crusting around eyelid. left pupil reactive, round and reactive to light EARS, NOSE, THROAT: dry mucous membranes, nares patent NECK: supple, no cervical lymphadenopathy LUNGS: limited exam, no wheezes, rales, or rhonchi noted. no accessory muscle use HEART: Regular rate and rhythm, normal S1 and S2 without murmur, rub or gallop. ABDOMEN: distended abdomen, tenderness to palpation over LLQ. soft, normoactive bowel sounds, no guarding, no rebound, no masses MUSCULOSKELETAL: no CVA tenderness. UPPER EXTREMITIES: 2+ pulses, warm, well-perfused. No cyanosis. No clubbing. No peripheral edema. LOWER EXTREMITIES: 2+ pulses, warm, well-perfused. No calf tenderness. No peripheral edema. NEUROLOGICAL: normal muscle tone. unable to assess cranial nerves SKIN: dry leathery skin on B/L feet and ankles. decreased turgor. no rashes noted. normal cap refill. Laboratory Results - last 24 hr 09/01/19 09/01/19 09/01/19 20:43 21:00 21:00 WBC 18.0 H RBC 4.69 Hgb 13.5 Hct 42.1 D MCV 89.8 MCH 28.9 MCHC 32.1 RDW 13.7 Plt Count 191 D MPV 10.3 Absolute Neuts (auto) 15.3 H Neutrophils % 84.6 H D Lymphocytes % 5.4 L D Monocytes % 9.3 Eosinophils % 0.1 D Basophils % 0.6 Nucleated RBC % 0 PT with INR INR Anticoagulation Therapy Puncture Site ABG pH ABG pCO2 at Pt Temp ABG pO2 at Pt Temp ABG HCO3 ABG O2 Sat (Measured) ABG O2 Content ABG Base Excess Manuel Test Carboxyhemoglobin Methemoglobin O2 Delivery Device Oxygen Flow Rate Vent Mode Vent Rate Mechanical Rate Pressure Support Vent Sodium 131 L Potassium 5.6 H Chloride 91 L Carbon Dioxide 24 Anion Gap 16 BUN 56.2 H Creatinine 2.5 H Est GFR (CKD-EPI)AfAm 27.28 Est GFR (CKD-EPI)NonAf 23.54 POC Glucometer > 600 Random Glucose 916 H* Lactic Acid Calcium 9.6 Phosphorus Magnesium Total Bilirubin 0.5 AST 13 L ALT 17 Alkaline Phosphatase 248 H Troponin I 0.05 Total Protein 7.6 Albumin 3.3 L Lipase 114 Urine Color Urine Appearance Urine pH Ur Specific [place] Urine Protein Urine Glucose (UA) Urine Ketones Urine Blood Urine Nitrite Urine Bilirubin Urine Urobilinogen Ur Leukocyte Esterase Urine WBC (Auto) Urine RBC (Auto) U Epithel Cells (Auto) Urine Bacteria (Auto) Acetone, Qual Positive small 1+ 09/01/19 09/01/19 09/01/19 21:00 21:00 21:16 WBC RBC Hgb Hct MCV MCH MCHC RDW Plt Count MPV Absolute Neuts (auto) Neutrophils % Lymphocytes % Monocytes % Eosinophils % Basophils % Nucleated RBC % PT with INR 13.60 H INR 1.15 H Anticoagulation Therapy Puncture Site ABG pH ABG pCO2 at Pt Temp ABG pO2 at Pt Temp ABG HCO3 ABG O2 Sat (Measured) ABG O2 Content ABG Base Excess Manuel Test Carboxyhemoglobin Methemoglobin O2 Delivery Device Oxygen Flow Rate Vent Mode Vent Rate Mechanical Rate Pressure Support Vent Sodium Potassium Chloride Carbon Dioxide Anion Gap BUN Creatinine Est GFR (CKD-EPI)AfAm Est GFR (CKD-EPI)NonAf POC Glucometer Random Glucose Lactic Acid 2.1 H Calcium Phosphorus Magnesium Total Bilirubin AST ALT Alkaline Phosphatase Troponin I Total Protein Albumin Lipase Urine Color Yellow Urine Appearance Clear Urine pH 5.5 Ur Specific [place] <= 1.005 L Urine Protein Negative Urine Glucose (UA) 3+ H Urine Ketones 2+ H Urine Blood Trace-intact Urine Nitrite Negative Urine Bilirubin Negative Urine Urobilinogen 0.2 Ur Leukocyte Esterase 1+ H Urine WBC (Auto) 30-50 Urine RBC (Auto) 0-4 U Epithel Cells (Auto) 0-5 Urine Bacteria (Auto) Moderate Acetone, Qual 09/01/19 09/02/19 09/02/19 23:00 00:20 00:20 WBC RBC Hgb Hct MCV MCH MCHC RDW Plt Count MPV Absolute Neuts (auto) Neutrophils % Lymphocytes % Monocytes % Eosinophils % Basophils % Nucleated RBC % PT with INR INR Anticoagulation Therapy Puncture Site ABG pH ABG pCO2 at Pt Temp ABG pO2 at Pt Temp ABG HCO3 ABG O2 Sat (Measured) ABG O2 Content ABG Base Excess Manuel Test Carboxyhemoglobin Methemoglobin O2 Delivery Device Oxygen Flow Rate Vent Mode Vent Rate Mechanical Rate Pressure Support Vent Sodium 137 Potassium 4.8 Chloride 98 Carbon Dioxide 24 Anion Gap 14 BUN 57.2 H Creatinine 2.3 H Est GFR (CKD-EPI)AfAm 30.17 Est GFR (CKD-EPI)NonAf 26.04 POC Glucometer Random Glucose 744 H* Lactic Acid 3.1 H* Calcium 9.5 Phosphorus 3.2 Cancelled Magnesium 3.1 H Cancelled Total Bilirubin AST ALT Alkaline Phosphatase Troponin I Total Protein Albumin Lipase Urine Color Urine Appearance Urine pH Ur Specific [place] Urine Protein Urine Glucose (UA) Urine Ketones Urine Blood Urine Nitrite Urine Bilirubin Urine Urobilinogen Ur Leukocyte Esterase Urine WBC (Auto) Urine RBC (Auto) U Epithel Cells (Auto) Urine Bacteria (Auto) Acetone, Qual 09/02/19 00:45 WBC RBC Hgb Hct MCV MCH MCHC RDW Plt Count MPV Absolute Neuts (auto) Neutrophils % Lymphocytes % Monocytes % Eosinophils % Basophils % Nucleated RBC % PT with INR INR Anticoagulation Therapy No Result Required. Puncture Site Right radial ABG pH 7.42 ABG pCO2 at Pt Temp 38.6 ABG pO2 at Pt Temp 84.6 ABG HCO3 24.4 ABG O2 Sat (Measured) 96.8 ABG O2 Content 16.3 ABG Base Excess 0.5 Manuel Test Positive Carboxyhemoglobin 2.2 H Methemoglobin < 1.0 O2 Delivery Device Room air Oxygen Flow Rate 21% Vent Mode No Result Required. Vent Rate No Result Required. Mechanical Rate No Result Required. Pressure Support Vent No Result Required. Sodium Potassium Chloride Carbon Dioxide Anion Gap BUN Creatinine Est GFR (CKD-EPI)AfAm Est GFR (CKD-EPI)NonAf POC Glucometer Random Glucose Lactic Acid Calcium Phosphorus Magnesium Total Bilirubin AST ALT Alkaline Phosphatase Troponin I Total Protein Albumin Lipase Urine Color Urine Appearance Urine pH Ur Specific [place] Urine Protein Urine Glucose (UA) Urine Ketones Urine Blood Urine Nitrite Urine Bilirubin Urine Urobilinogen Ur Leukocyte Esterase Urine WBC (Auto) Urine RBC (Auto) U Epithel Cells (Auto) Urine Bacteria (Auto) Acetone, Qual Imaging: CT head: no acute pathology; markedly dilated ventricles (present on prior CT head) CT abd/pelvis: IMPRESSION: 1. Significant stool retention in the rectosigmoid colon with findings suggestive of early stercoral colitis. Please correlate clinically. No evidence for small bowel obstruction. 2. Mild hydroureteronephrosis secondary to urinary bladder distention. 3. Other incidental and senescent findings, as above. ASSESSMENT/PLAN: 79 y/o/m with PMHx of IDDM, CAD s/p CABG, [place] in 1997, CHF, CKD, COPD, dementia here for altered mental status BIB EMS from home. Patient has history of elevated sugars in the 600s. 1)HHS - patient with history of sugar in the 600s at home. initial sugar at 916 here. -Anion gap at 16, ABG without acidosis. Likely HHS instead of DKA -Anion gap closed now -Patient on Insulin drip -Glucose at 252 -Will start bridging patient on long acting insulin -Follow repeat BMP for electrolytes -BGM monitoring -Patient on fluids - 1/2 NS with K+ -Hemoglobin A1C ordered -Diabetes education for the family 2)ABD pain - CT shows significant stool retention in the rectosigmoid colon with findings suggestive of early stercoral colitis. -fleet enema ordered for possible relief of constipation -consider fecal disimpaction if unsuccessful 3)KIKI on CKD - patient with history of CKD, now with BUN/Cr elevated over baseline -CT shows distended bladder, arguello placed with release of >700cc of urine -Maintain arguello -IVF -Holding lasix for now as patient needs fluid rehydration 4)UTI - UA with 1+ leuk esterase, 2+ ketones -given levaquin and flagyl in ED -Rocephin ordered for AM 5)Elevated troponin - initial trop at 0.05 -Trop trending down with second trop -EKG without acute ischemic changes 6)Lactic acidosis - initial lactic at 2.1 -repeat lactic at 3.1 -> 3.4 -monitor -on IVF 7)FEN -NPO -1/2 NS 8)Prophylaxis -Continue patient home med of Plavix 9)Disposition -Patient admitted to ICU -Full code Visit type - Emergency Visit Emergency Visit: Yes ED Registration Date: 09/01/19 Care time: The patient presented to the Emergency Department on the above date and was hospitalized for further evaluation of their emergent condition. - New Patient This patient is new to me today: Yes Date on this admission: 09/02/19 - Critical Care Critical Care patient: No ATTENDING PHYSICIAN STATEMENT I saw and evaluated the patient. I reviewed the resident's note and discussed the case with the resident. I agree with the resident's findings and plan as documented. SUBJECTIVE: OBJECTIVE: ASSESSMENT AND PLAN:
--- NOTE | 2019-09-02 01:48 | PN ---
Teaching Attending Note Name of Resident: Sejal Jo ATTENDING PHYSICIAN STATEMENT I saw and evaluated the patient. I reviewed the resident's note and discussed the case with the resident. I agree with the resident's findings and plan as documented. SUBJECTIVE: 78 y/o male with baseline dementia, Insulin dependant diabetic with diabetic retinopathy, CAD, CKD, CHF and COPD who presented to the ED with with AMS and abdominal pain. Labs were significant for serum glucose of 916, + serum ketones. Given insulin bolus and started on insulin drip in ER. Family not at bedside when I saw patient. OBJECTIVE: Last Vital Signs Temp Pulse Resp BP Pulse Ox 98.6 F 84 17 125/65 100 09/01/19 20:50 09/02/19 00:29 09/02/19 00:29 09/02/19 00:29 09/02/19 00:29 gen heent -right eye opaque chest -anterior chest scar, b/l breath sounds, clear to auscultation cv-s1+s2+rrr ext - no edema or foot ulcers skin -negative for decubitus ulcers as per nursing Abnormal Lab Results 09/01/19 09/01/19 09/01/19 21:00 21:00 21:00 WBC 18.0 H Absolute Neuts (auto) 15.3 H Neutrophils % 84.6 H D Lymphocytes % 5.4 L D PT with INR INR Carboxyhemoglobin Sodium 131 L Potassium 5.6 H Chloride 91 L BUN 56.2 H Creatinine 2.5 H Random Glucose 916 H* Lactic Acid 2.1 H Magnesium AST 13 L Alkaline Phosphatase 248 H Albumin 3.3 L Ur Specific [place] Urine Glucose (UA) Urine Ketones Ur Leukocyte Esterase 09/01/19 09/01/19 09/01/19 21:00 21:16 23:00 WBC Absolute Neuts (auto) Neutrophils % Lymphocytes % PT with INR 13.60 H INR 1.15 H Carboxyhemoglobin Sodium Potassium Chloride BUN 57.2 H Creatinine 2.3 H Random Glucose 744 H* Lactic Acid Magnesium 3.1 H AST Alkaline Phosphatase Albumin Ur Specific [place] <= 1.005 L Urine Glucose (UA) 3+ H Urine Ketones 2+ H Ur Leukocyte Esterase 1+ H 09/02/19 09/02/19 00:20 00:45 WBC Absolute Neuts (auto) Neutrophils % Lymphocytes % PT with INR INR Carboxyhemoglobin 2.2 H Sodium Potassium Chloride BUN Creatinine Random Glucose Lactic Acid 3.1 H* Magnesium AST Alkaline Phosphatase Albumin Ur Specific [place] Urine Glucose (UA) Urine Ketones Ur Leukocyte Esterase imaging reviewed head ct just showed some chronic small vessel ischemic disease , abd/pelvic ct showe stool retention in recto-sigmoid colon and bladder distention ASSESSMENT AND PLAN: #Critically ill man with DKA vs hyperosmolar hyperglycemic state secondary to poor glycemic control HAGMA+, lactic acidosis, MODS- mike on ckd, ketonuria. psuedohyponatremia, hypoalbuminemia. Leukocytosis may be reactive or may be secondary to underlying infection. UA+ for pyuria, cannot r/o uti. Noted to have urinary retention with copious urine output after arguello catheter placement. -admit to ICU -IV fluid hydration -insulin drip -BGMs q1-2 hrs -monitor electrolytes closely -k, mg , phos -a1c -maintain on insulin drip until glucose <300mg/dl -monitor AG to close -maintain arguello catheter -i/o -daily weights -urine culture/blood cultures sent -c/w ceftriaxone for now -rectal enema for constipation -dvt ppx -heparin sc
[2019-09-02] MEDS ORDERED: SODIUM CHLORIDE 0.45% 1,000 ML with POTASSIUM CHLORIDE 20 MEQ IVPB SCH (03:15)
[2019-09-02 03:22] LABS: HEMATOCRIT 37.8 % (35.4-49); HEMOGLOBIN 12.5 GM/dL (11.7-16.9); MCH 28.5 pg (25.7-33.7); MCHC 33.1 g/dl (32.0-35.9); MEAN PLT VOLUME 9.5 fl (7.5-11.1); PLATELET COUNT 180 K/MM3 (134-434); RDW 13.6 % (11.9-15.9); WHITE BLOOD COUNT 15.8 K/mm3 (4.0-10.0)
[2019-09-02 03:57] LABS: BLOOD UREA NITROGEN 49.4 mg/dL (7-18); CALCIUM 9.8 mg/dL (8.5-10.1); CREATININE 2.2 mg/dL (0.55-1.3); POTASSIUM 4.3 mmol/L (3.5-5.1)
[2019-09-02] MEDS ORDERED: INSULIN (LEVEMIR) 100 UNITS/ML UNITS SQ ONE ×2 (04:43→05:00)
[2019-09-02] MEDS: HEPARIN NA (PORCINE) 5,000 UNITS/ML 1ML VIAL SQ SCH ×4 (05:35→21:29)
[2019-09-02] MEDS ORDERED: D5-1/2NS+20 MEQ KCL - 20 MEQ/1,000 ML INFUS.BAG IV SCH (05:45)
[2019-09-02] MEDS: INSULIN SLIDING SCALE (NOVOLOG) 1 VIAL SQ SCH ×5 (06:26→21:29)
[2019-09-02 07:06] LABS: BLOOD UREA NITROGEN 45.1 mg/dL (7-18); CALCIUM 9.7 mg/dL (8.5-10.1); CREATININE 1.9 mg/dL (0.55-1.3); MAGNESIUM 3.1 mg/dL (1.8-2.4)
--- NOTE | 2019-09-02 07:39 | PN ---
Physical Exam: SUBJECTIVE: Patient seen and examined at bedside in the ICU. Lethargic and somnolent but arousable. Oriented to person and that he is in a hospital. Denies any pain. Discussed with son, who reports that this has been his baseline for the past couple of months. OBJECTIVE: Vital Signs Period Temp Pulse Resp BP Sys/Poole Pulse Ox Last 24 Hr 98 F-98.6 F 80-88 17-19 94-125/56-108 100-100 GENERAL: The patient is lethargic, arousable, confused, in no acute distress. HEAD: Normal with no signs of trauma. EYES: PERRL, sclera anicteric, conjunctiva clear. No ptosis. Right eye opacity. ENT: Ears normal, nares patent, oropharynx clear without exudates, moist mucous membranes. NECK: Trachea midline, full range of motion, supple. LUNGS: Breath sounds equal, clear to auscultation bilaterally, no wheezes, no crackles, no accessory muscle use. HEART: Regular rate and rhythm, S1, S2 without murmur, rub or gallop. ABDOMEN: Soft, nontender, nondistended, no guarding, no rebound, no hepatosplenomegaly, no masses. EXTREMITIES: 2+ pulses, warm, well-perfused, no edema. NEUROLOGICAL: Unable to assess. PSYCH: Unable to assess. SKIN: Warm, dry, normal turgor, no rashes or lesions noted Laboratory Results - last 24 hr 09/01/19 09/01/19 09/01/19 20:43 21:00 21:00 WBC 18.0 H RBC 4.69 Hgb 13.5 Hct 42.1 D MCV 89.8 MCH 28.9 MCHC 32.1 RDW 13.7 Plt Count 191 D MPV 10.3 Absolute Neuts (auto) 15.3 H Neutrophils % 84.6 H D Lymphocytes % 5.4 L D Monocytes % 9.3 Eosinophils % 0.1 D Basophils % 0.6 Nucleated RBC % 0 PT with INR INR Anticoagulation Therapy Puncture Site ABG pH ABG pCO2 at Pt Temp ABG pO2 at Pt Temp ABG HCO3 ABG O2 Sat (Measured) ABG O2 Content ABG Base Excess Manuel Test Carboxyhemoglobin Methemoglobin O2 Delivery Device Oxygen Flow Rate Vent Mode Vent Rate Mechanical Rate Pressure Support Vent Sodium 131 L Potassium 5.6 H Chloride 91 L Carbon Dioxide 24 Anion Gap 16 BUN 56.2 H Creatinine 2.5 H Est GFR (CKD-EPI)AfAm 27.28 Est GFR (CKD-EPI)NonAf 23.54 POC Glucometer > 600 Random Glucose 916 H* Lactic Acid Calcium 9.6 Phosphorus Magnesium Total Bilirubin 0.5 AST 13 L ALT 17 Alkaline Phosphatase 248 H Troponin I 0.05 Total Protein 7.6 Albumin 3.3 L Lipase 114 Urine Color Urine Appearance Urine pH Ur Specific [place] Urine Protein Urine Glucose (UA) Urine Ketones Urine Blood Urine Nitrite Urine Bilirubin Urine Urobilinogen Ur Leukocyte Esterase Urine WBC (Auto) Urine RBC (Auto) U Epithel Cells (Auto) Urine Bacteria (Auto) Ur Random Sodium Ur Random Potassium Ur Random Chloride Acetone, Qual Positive small 1+ 09/01/19 09/01/19 09/01/19 21:00 21:00 21:16 WBC RBC Hgb Hct MCV MCH MCHC RDW Plt Count MPV Absolute Neuts (auto) Neutrophils % Lymphocytes % Monocytes % Eosinophils % Basophils % Nucleated RBC % PT with INR 13.60 H INR 1.15 H Anticoagulation Therapy Puncture Site ABG pH ABG pCO2 at Pt Temp ABG pO2 at Pt Temp ABG HCO3 ABG O2 Sat (Measured) ABG O2 Content ABG Base Excess Manuel Test Carboxyhemoglobin Methemoglobin O2 Delivery Device Oxygen Flow Rate Vent Mode Vent Rate Mechanical Rate Pressure Support Vent Sodium Potassium Chloride Carbon Dioxide Anion Gap BUN Creatinine Est GFR (CKD-EPI)AfAm Est GFR (CKD-EPI)NonAf POC Glucometer Random Glucose Lactic Acid 2.1 H Calcium Phosphorus Magnesium Total Bilirubin AST ALT Alkaline Phosphatase Troponin I Total Protein Albumin Lipase Urine Color Yellow Urine Appearance Clear Urine pH 5.5 Ur Specific [place] <= 1.005 L Urine Protein Negative Urine Glucose (UA) 3+ H Urine Ketones 2+ H Urine Blood Trace-intact Urine Nitrite Negative Urine Bilirubin Negative Urine Urobilinogen 0.2 Ur Leukocyte Esterase 1+ H Urine WBC (Auto) 30-50 Urine RBC (Auto) 0-4 U Epithel Cells (Auto) 0-5 Urine Bacteria (Auto) Moderate Ur Random Sodium Ur Random Potassium Ur Random Chloride Acetone, Qual 09/01/19 09/02/19 09/02/19 23:00 00:20 00:20 WBC RBC Hgb Hct MCV MCH MCHC RDW Plt Count MPV Absolute Neuts (auto) Neutrophils % Lymphocytes % Monocytes % Eosinophils % Basophils % Nucleated RBC % PT with INR INR Anticoagulation Therapy Puncture Site ABG pH ABG pCO2 at Pt Temp ABG pO2 at Pt Temp ABG HCO3 ABG O2 Sat (Measured) ABG O2 Content ABG Base Excess Manuel Test Carboxyhemoglobin Methemoglobin O2 Delivery Device Oxygen Flow Rate Vent Mode Vent Rate Mechanical Rate Pressure Support Vent Sodium 137 Potassium 4.8 Chloride 98 Carbon Dioxide 24 Anion Gap 14 BUN 57.2 H Creatinine 2.3 H Est GFR (CKD-EPI)AfAm 30.17 Est GFR (CKD-EPI)NonAf 26.04 POC Glucometer Random Glucose 744 H* Lactic Acid 3.1 H* Calcium 9.5 Phosphorus 3.2 Cancelled Magnesium 3.1 H Cancelled Total Bilirubin AST ALT Alkaline Phosphatase Troponin I Total Protein Albumin Lipase Urine Color Urine Appearance Urine pH Ur Specific [place] Urine Protein Urine Glucose (UA) Urine Ketones Urine Blood Urine Nitrite Urine Bilirubin Urine Urobilinogen Ur Leukocyte Esterase Urine WBC (Auto) Urine RBC (Auto) U Epithel Cells (Auto) Urine Bacteria (Auto) Ur Random Sodium Ur Random Potassium Ur Random Chloride Acetone, Qual 09/02/19 09/02/19 09/02/19 00:45 01:30 02:33 WBC RBC Hgb Hct MCV MCH MCHC RDW Plt Count MPV Absolute Neuts (auto) Neutrophils % Lymphocytes % Monocytes % Eosinophils % Basophils % Nucleated RBC % PT with INR INR Anticoagulation Therapy No Result Required. Puncture Site Right radial ABG pH 7.42 ABG pCO2 at Pt Temp 38.6 ABG pO2 at Pt Temp 84.6 ABG HCO3 24.4 ABG O2 Sat (Measured) 96.8 ABG O2 Content 16.3 ABG Base Excess 0.5 Manuel Test Positive Carboxyhemoglobin 2.2 H Methemoglobin < 1.0 O2 Delivery Device Room air Oxygen Flow Rate 21% Vent Mode No Result Required. Vent Rate No Result Required. Mechanical Rate No Result Required. Pressure Support Vent No Result Required. Sodium Potassium Chloride Carbon Dioxide Anion Gap BUN Creatinine Est GFR (CKD-EPI)AfAm Est GFR (CKD-EPI)NonAf POC Glucometer 485 363 Random Glucose Lactic Acid Calcium Phosphorus Magnesium Total Bilirubin AST ALT Alkaline Phosphatase Troponin I Total Protein Albumin Lipase Urine Color Urine Appearance Urine pH Ur Specific [place] Urine Protein Urine Glucose (UA) Urine Ketones Urine Blood Urine Nitrite Urine Bilirubin Urine Urobilinogen Ur Leukocyte Esterase Urine WBC (Auto) Urine RBC (Auto) U Epithel Cells (Auto) Urine Bacteria (Auto) Ur Random Sodium Ur Random Potassium Ur Random Chloride Acetone, Qual 09/02/19 09/02/19 09/02/19 03:00 03:00 03:00 WBC 15.8 H RBC 4.40 Hgb 12.5 Hct 37.8 MCV 86.0 MCH 28.5 MCHC 33.1 RDW 13.6 Plt Count 180 MPV 9.5 Absolute Neuts (auto) Neutrophils % Lymphocytes % Monocytes % Eosinophils % Basophils % Nucleated RBC % PT with INR INR Anticoagulation Therapy Puncture Site ABG pH ABG pCO2 at Pt Temp ABG pO2 at Pt Temp ABG HCO3 ABG O2 Sat (Measured) ABG O2 Content ABG Base Excess Manuel Test Carboxyhemoglobin Methemoglobin O2 Delivery Device Oxygen Flow Rate Vent Mode Vent Rate Mechanical Rate Pressure Support Vent Sodium 144 Potassium 4.3 Chloride 105 Carbon Dioxide 31 Anion Gap 9 BUN 49.4 H Creatinine 2.2 H Est GFR (CKD-EPI)AfAm 31.84 Est GFR (CKD-EPI)NonAf 27.47 POC Glucometer Random Glucose 351 H Lactic Acid 3.4 H* Calcium 9.8 Phosphorus Magnesium Total Bilirubin AST ALT Alkaline Phosphatase Troponin I 0.03 Total Protein Albumin Lipase Urine Color Urine Appearance Urine pH Ur Specific [place] Urine Protein Urine Glucose (UA) Urine Ketones Urine Blood Urine Nitrite Urine Bilirubin Urine Urobilinogen Ur Leukocyte Esterase Urine WBC (Auto) Urine RBC (Auto) U Epithel Cells (Auto) Urine Bacteria (Auto) Ur Random Sodium Ur Random Potassium Ur Random Chloride Acetone, Qual 09/02/19 09/02/19 09/02/19 03:00 03:48 04:37 WBC RBC Hgb Hct MCV MCH MCHC RDW Plt Count MPV Absolute Neuts (auto) Neutrophils % Lymphocytes % Monocytes % Eosinophils % Basophils % Nucleated RBC % PT with INR INR Anticoagulation Therapy Puncture Site ABG pH ABG pCO2 at Pt Temp ABG pO2 at Pt Temp ABG HCO3 ABG O2 Sat (Measured) ABG O2 Content ABG Base Excess Manuel Test Carboxyhemoglobin Methemoglobin O2 Delivery Device Oxygen Flow Rate Vent Mode Vent Rate Mechanical Rate Pressure Support Vent Sodium Potassium Chloride Carbon Dioxide Anion Gap BUN Creatinine Est GFR (CKD-EPI)AfAm Est GFR (CKD-EPI)NonAf POC Glucometer 252 205 Random Glucose Lactic Acid Calcium Phosphorus Magnesium Total Bilirubin AST ALT Alkaline Phosphatase Troponin I Total Protein Albumin Lipase Urine Color Urine Appearance Urine pH Ur Specific [place] Urine Protein Urine Glucose (UA) Urine Ketones Urine Blood Urine Nitrite Urine Bilirubin Urine Urobilinogen Ur Leukocyte Esterase Urine WBC (Auto) Urine RBC (Auto) U Epithel Cells (Auto) Urine Bacteria (Auto) Ur Random Sodium 10 L Ur Random Potassium 22.0 L Ur Random Chloride < 11 L Acetone, Qual 09/02/19 09/02/19 09/02/19 05:38 05:50 06:26 WBC RBC Hgb Hct MCV MCH MCHC RDW Plt Count MPV Absolute Neuts (auto) Neutrophils % Lymphocytes % Monocytes % Eosinophils % Basophils % Nucleated RBC % PT with INR INR Anticoagulation Therapy Puncture Site ABG pH ABG pCO2 at Pt Temp ABG pO2 at Pt Temp ABG HCO3 ABG O2 Sat (Measured) ABG O2 Content ABG Base Excess Manuel Test Carboxyhemoglobin Methemoglobin O2 Delivery Device Oxygen Flow Rate Vent Mode Vent Rate Mechanical Rate Pressure Support Vent Sodium 146 H Potassium 4.0 Chloride 108 H Carbon Dioxide 30 Anion Gap 8 BUN 45.1 H Creatinine 1.9 H Est GFR (CKD-EPI)AfAm 38.02 Est GFR (CKD-EPI)NonAf 32.80 POC Glucometer 158 166 Random Glucose 148 H Lactic Acid Calcium 9.7 Phosphorus 2.0 L Magnesium 3.1 H Total Bilirubin AST ALT Alkaline Phosphatase Troponin I Total Protein Albumin Lipase Urine Color Urine Appearance Urine pH Ur Specific [place] Urine Protein Urine Glucose (UA) Urine Ketones Urine Blood Urine Nitrite Urine Bilirubin Urine Urobilinogen Ur Leukocyte Esterase Urine WBC (Auto) Urine RBC (Auto) U Epithel Cells (Auto) Urine Bacteria (Auto) Ur Random Sodium Ur Random Potassium Ur Random Chloride Acetone, Qual Active Medications Generic Name Dose Route Start Last Admin Trade Name Freq PRN Reason Stop Dose Admin Atorvastatin Calcium 40 mg 09/02/19 22:00 Lipitor - PO HS [facility] Chlorhexidine Gluconate 1 applic 09/02/19 22:00 Hibiclens For Decolonization - TP HS [facility] Clopidogrel Bisulfate 75 mg 09/02/19 10:00 Plavix - PO DAILY DAISHA Ezetimibe 10 mg 09/02/19 22:00 Zetia - PO HS [facility] Heparin Sodium (Porcine) 5,000 unit 09/02/19 06:00 09/02/19 05:35 Heparin - SQ 5,000 unit TID DAISHA Administration Ceftriaxone Sodium 1 gm/ 50 mls @ 100 mls/hr 09/02/19 10:00 Dextrose IVPB 09/02/19 10:29 ONCE ONE Potassium Chloride/Dextrose/Sod Cl 20 meq in 1,000 mls @ 200 mls/hr 09/02/19 05:45 09/02/19 05:41 D5-1/2ns+20 Meq Kcl - IV 200 mls/hr ASDIR DAISHA Administration Insulin Aspart 1 vial 09/02/19 07:00 09/02/19 06:26 Novolog Vial Sliding Scale - SQ 2 units ACHS DAISHA Administration Protocol Mupirocin 1 applic 09/02/19 10:00 Bactroban Ointment (For Decolonization) - NS 09/07/19 09:59 BID DAISHA Nebivolol 2.5 mg 09/02/19 22:00 Bystolic - PO HS DAISHA Tamsulosin HCl 0.4 mg 09/02/19 08:30 Flomax - PO DAILY@0830 [facility] ASSESSMENT/PLAN: 79 y/o/m with PMHx of IDDM, CAD s/p CABG, DC in 1997, CHF, CKD, COPD, dementia here for altered mental status BIB EMS from home. Patient has history of elevated sugars in the 600s. #Endo - HHS -DMT2, hx of sugars in the 600s at home, initial sugar 916 here -initial anion gap at 16, ABG w/o acidosis, likely HHS vs less likely DKA, anion gap now closed -BGM monitoring -novolog SS #resp -O2 as needed -aspiration precautions #GI -CT shows stool retention in rectosigmoid colon with findings suggestive of early stercoral colitis -fleet enema for possible relief of constipation -consider fecal disimpaction if unsuccessful #renal - KIKI -CT shows distended bladder, arguello placed with release of > 700 cc urine -hold lasix as pt needs fluid rehydration -Cr elevated at 1.9 today # -UA with 1+ leuk esterase and 2+ ketones -ceftriaxone 1g #cardio -elevated trop (initial 0.05) -trending down with second trop -EKG without acute ischemic changes #Lactic acidosis -initial lactic 2.1 -lactic acid today 3.4 -trend and continue IV fluids #Neuro -neuro consult #F/E/N -trend lytes, replete PRN -D5LR for fluids -d/c Arguello DVT ppx: c/w plavix Code Status: Full Code Dispo: Floor Gilson Martinez MD PGY-1, Critical Care/ICU [phone] Visit type - Emergency Visit Emergency Visit: Yes ED Registration Date: 09/01/19 Care time: The patient presented to the Emergency Department on the above date and was hospitalized for further evaluation of their emergent condition. - New Patient This patient is new to me today: Yes Date on this admission: 09/02/19 - Critical Care Critical Care patient: Yes Total Critical Care Time (in minutes): 35 Critical Care Statement: The care of this patient involved high complexity decision making to prevent further life threatening deterioration of the patient 's condition and/or to evaluate & treat vital organ system(s) failure or risk of failure. ATTENDING PHYSICIAN STATEMENT I saw and evaluated the patient. I reviewed the resident's note and discussed the case with the resident. I agree with the resident's findings and plan as documented. SUBJECTIVE: OBJECTIVE: ASSESSMENT AND PLAN:
[2019-09-02] MEDS ORDERED: TAMSULOSIN HCL 0.4 MG CAP PO SCH (08:30)
[2019-09-02] MEDS ORDERED: cefTRIAXone SODIUM 1 GM VIAL ONE (08:33)
[2019-09-02] MEDS ORDERED: DEXTROSE 5%-WATER - 50 ML IVPB ONE (08:33)
[2019-09-02 08:41] LABS: BASO % 0.8 % (0-2.0); EOS % 0.3 % (0-4.5); HEMATOCRIT 35.8 % (35.4-49); LYMPH % 8.4 % (8-40); MCH 29.1 pg (25.7-33.7); MCHC 33.6 g/dl (32.0-35.9); MEAN CELL VOLUME 86.7 fl (80-96); MEAN PLT VOLUME 9.3 fl (7.5-11.1); MONO % 12.2 % (3.8-10.2); NEUT % 78.3 % (42.8-82.8); PLATELET COUNT 159 K/MM3 (134-434); RBC 4.14 M/mm3 (4.00-5.60); RDW 13.6 % (11.9-15.9); WHITE BLOOD COUNT 14.9 K/mm3 (4.0-10.0)
[2019-09-02] MEDS ORDERED: POTASSIUM PHOSPHATE 20 MM in SODIUM CHLORIDE 250 ML IVPB ONE (09:15)
[2019-09-02] MEDS: MUPIROCIN 2% TOPICAL OINTMENT FOR DECOLONIZATION NS SCH ×2 (09:35→21:09)
[2019-09-02] MEDS ORDERED: CEFTRIAXONE 1 GM in DEXTROSE 5%-WATER - 50 ML IVPB ONE (10:00)
[2019-09-02] MEDS ORDERED: CLOPIDOGREL BISULFATE 75 MG TABLET (FP) PO SCH (10:00)
[2019-09-02] MEDS ORDERED: DEXTROSE 5%-LACTATED RINGERS 1,000 ML IV SCH (10:15)
--- NOTE | 2019-09-02 10:18 | EKG ---
Test Reason : Blood Pressure : / mmHG Vent. Rate : 084 BPM Atrial Rate : 084 BPM P-R Int : 162 ms QRS Dur : 090 ms QT Int : 400 ms P-R-T Axes : 060 042 141 degrees QTc Int : 472 ms NORMAL SINUS RHYTHM POSSIBLE INFERIOR INFARCT (CITED ON OR BEFORE 05-MAY-2019) ABNORMAL ECG WHEN COMPARED WITH ECG OF 06-MAY-2019 12:07, NO SIGNIFICANT CHANGE WAS FOUND Confirmed by BRENDA WELDON, VAUGHN ([id number]) on 09/02/2019 10:18:10 AM Referred By: Confirmed By:VAUGHN GUTIERREZ MD
--- NOTE | 2019-09-02 11:11 | PN ---
Teaching Attending Note Name of Resident: Gilson Martinez ATTENDING PHYSICIAN STATEMENT I saw and evaluated the patient. I reviewed the resident's note and discussed the case with the resident. I agree with the resident's findings and plan as documented. SUBJECTIVE: Patient seen and examined in the ICU. Lethargic but arousable. Able to tell us his name and that he is in "[facility]". Insulin drip DCed overnight. Resident spoke to family, Mental status has been declining. Intake & Output 08/30/19 08/31/19 09/01/19 09/02/19 23:59 23:59 23:59 23:59 Intake Total 820 Output Total 1200 Balance -380 Weight 170 lb 145 lb 4.554 oz Last Vital Signs Temp Pulse Resp BP Pulse Ox 98.4 F 75 18 120/43 L 100 09/02/19 06:00 09/02/19 08:00 09/02/19 08:00 09/02/19 08:00 09/02/19 01:57 Active Medications Atorvastatin Calcium (Lipitor -) 40 mg PO HS [facility] Chlorhexidine Gluconate (Hibiclens For Decolonization -) 1 applic TP HS [facility] Clopidogrel Bisulfate (Plavix -) 75 mg PO DAILY [facility] Last Admin: 09/02/19 09:34 Dose: 75 mg Ezetimibe (Zetia -) 10 mg PO HS [facility] Heparin Sodium (Porcine) (Heparin -) 5,000 unit SQ TID [facility] Last Admin: 09/02/19 05:35 Dose: 5,000 unit Potassium Phosphate 20 mm/ (Sodium Chloride) 256.6667 mls @ 62.5 mls/hr IVPB ONCE ONE Stop: 09/02/19 13:21 Last Admin: 09/02/19 10:52 Dose: 62.5 mls/hr Dextrose/Lactated Ringer's (D5-Lr -) 1,000 mls @ 100 mls/hr IV ASDIR [facility] Last Admin: 09/02/19 10:52 Dose: 100 mls/hr Insulin Aspart (Novolog Vial Sliding Scale -) 1 vial SQ ACHS [facility]; Protocol Last Admin: 09/02/19 06:26 Dose: 2 units Mupirocin (Bactroban Ointment (For Decolonization) -) 1 applic NS BID [facility] Stop: 09/07/19 09:59 Last Admin: 09/02/19 09:35 Dose: 1 applic Nebivolol (Bystolic -) 2.5 mg PO HS [facility] Tamsulosin HCl (Flomax -) 0.4 mg PO DAILY@0830 [facility] Last Admin: 09/02/19 08:30 Dose: 0.[address] Head: (?) NPH gen: lethargic but arousable, confused, non-focal heent -right eye opaque chest -clear to auscultation cv-[id number] ext - no edema or foot ulcers skin - (-) rash Laboratory Results - last 24 hr 09/01/19 09/01/19 09/01/19 20:43 21:00 21:00 WBC 18.0 H RBC 4.69 Hgb 13.5 Hct 42.1 D MCV 89.8 MCH 28.9 MCHC 32.1 RDW 13.7 Plt Count 191 D MPV 10.3 Absolute Neuts (auto) 15.3 H Neutrophils % 84.6 H D Lymphocytes % 5.4 L D Monocytes % 9.3 Eosinophils % 0.1 D Basophils % 0.6 Nucleated RBC % 0 PT with INR INR Anticoagulation Therapy Puncture Site ABG pH ABG pCO2 at Pt Temp ABG pO2 at Pt Temp ABG HCO3 ABG O2 Sat (Measured) ABG O2 Content ABG Base Excess Manuel Test Carboxyhemoglobin Methemoglobin O2 Delivery Device Oxygen Flow Rate Vent Mode Vent Rate Mechanical Rate Pressure Support Vent Sodium 131 L Potassium 5.6 H Chloride 91 L Carbon Dioxide 24 Anion Gap 16 BUN 56.2 H Creatinine 2.5 H Est GFR (CKD-EPI)AfAm 27.28 Est GFR (CKD-EPI)NonAf 23.54 POC Glucometer > 600 Random Glucose 916 H* Lactic Acid Calcium 9.6 Phosphorus Magnesium Total Bilirubin 0.5 AST 13 L ALT 17 Alkaline Phosphatase 248 H Troponin I 0.05 Total Protein 7.6 Albumin 3.3 L Lipase 114 Urine Color Urine Appearance Urine pH Ur Specific [place] Urine Protein Urine Glucose (UA) Urine Ketones Urine Blood Urine Nitrite Urine Bilirubin Urine Urobilinogen Ur Leukocyte Esterase Urine WBC (Auto) Urine RBC (Auto) U Epithel Cells (Auto) Urine Bacteria (Auto) Ur Random Sodium Ur Random Potassium Ur Random Chloride Acetone, Qual Positive small 1+ 09/01/19 09/01/19 09/01/19 21:00 21:00 21:16 WBC RBC Hgb Hct MCV MCH MCHC RDW Plt Count MPV Absolute Neuts (auto) Neutrophils % Lymphocytes % Monocytes % Eosinophils % Basophils % Nucleated RBC % PT with INR 13.60 H INR 1.15 H Anticoagulation Therapy Puncture Site ABG pH ABG pCO2 at Pt Temp ABG pO2 at Pt Temp ABG HCO3 ABG O2 Sat (Measured) ABG O2 Content ABG Base Excess Manuel Test Carboxyhemoglobin Methemoglobin O2 Delivery Device Oxygen Flow Rate Vent Mode Vent Rate Mechanical Rate Pressure Support Vent Sodium Potassium Chloride Carbon Dioxide Anion Gap BUN Creatinine Est GFR (CKD-EPI)AfAm Est GFR (CKD-EPI)NonAf POC Glucometer Random Glucose Lactic Acid 2.1 H Calcium Phosphorus Magnesium Total Bilirubin AST ALT Alkaline Phosphatase Troponin I Total Protein Albumin Lipase Urine Color Yellow Urine Appearance Clear Urine pH 5.5 Ur Specific [place] <= 1.005 L Urine Protein Negative Urine Glucose (UA) 3+ H Urine Ketones 2+ H Urine Blood Trace-intact Urine Nitrite Negative Urine Bilirubin Negative Urine Urobilinogen 0.2 Ur Leukocyte Esterase 1+ H Urine WBC (Auto) 30-50 Urine RBC (Auto) 0-4 U Epithel Cells (Auto) 0-5 Urine Bacteria (Auto) Moderate Ur Random Sodium Ur Random Potassium Ur Random Chloride Acetone, Qual 09/01/19 09/02/19 09/02/19 23:00 00:20 00:20 WBC RBC Hgb Hct MCV MCH MCHC RDW Plt Count MPV Absolute Neuts (auto) Neutrophils % Lymphocytes % Monocytes % Eosinophils % Basophils % Nucleated RBC % PT with INR INR Anticoagulation Therapy Puncture Site ABG pH ABG pCO2 at Pt Temp ABG pO2 at Pt Temp ABG HCO3 ABG O2 Sat (Measured) ABG O2 Content ABG Base Excess Manuel Test Carboxyhemoglobin Methemoglobin O2 Delivery Device Oxygen Flow Rate Vent Mode Vent Rate Mechanical Rate Pressure Support Vent Sodium 137 Potassium 4.8 Chloride 98 Carbon Dioxide 24 Anion Gap 14 BUN 57.2 H Creatinine 2.3 H Est GFR (CKD-EPI)AfAm 30.17 Est GFR (CKD-EPI)NonAf 26.04 POC Glucometer Random Glucose 744 H* Lactic Acid 3.1 H* Calcium 9.5 Phosphorus 3.2 Cancelled Magnesium 3.1 H Cancelled Total Bilirubin AST ALT Alkaline Phosphatase Troponin I Total Protein Albumin Lipase Urine Color Urine Appearance Urine pH Ur Specific [place] Urine Protein Urine Glucose (UA) Urine Ketones Urine Blood Urine Nitrite Urine Bilirubin Urine Urobilinogen Ur Leukocyte Esterase Urine WBC (Auto) Urine RBC (Auto) U Epithel Cells (Auto) Urine Bacteria (Auto) Ur Random Sodium Ur Random Potassium Ur Random Chloride Acetone, Qual 09/02/19 09/02/19 09/02/19 00:45 01:30 02:33 WBC RBC Hgb Hct MCV MCH MCHC RDW Plt Count MPV Absolute Neuts (auto) Neutrophils % Lymphocytes % Monocytes % Eosinophils % Basophils % Nucleated RBC % PT with INR INR Anticoagulation Therapy No Result Required. Puncture Site Right radial ABG pH 7.42 ABG pCO2 at Pt Temp 38.6 ABG pO2 at Pt Temp 84.6 ABG HCO3 24.4 ABG O2 Sat (Measured) 96.8 ABG O2 Content 16.3 ABG Base Excess 0.5 Manuel Test Positive Carboxyhemoglobin 2.2 H Methemoglobin < 1.0 O2 Delivery Device Room air Oxygen Flow Rate 21% Vent Mode No Result Required. Vent Rate No Result Required. Mechanical Rate No Result Required. Pressure Support Vent No Result Required. Sodium Potassium Chloride Carbon Dioxide Anion Gap BUN Creatinine Est GFR (CKD-EPI)AfAm Est GFR (CKD-EPI)NonAf POC Glucometer 485 363 Random Glucose Lactic Acid Calcium Phosphorus Magnesium Total Bilirubin AST ALT Alkaline Phosphatase Troponin I Total Protein Albumin Lipase Urine Color Urine Appearance Urine pH Ur Specific [place] Urine Protein Urine Glucose (UA) Urine Ketones Urine Blood Urine Nitrite Urine Bilirubin Urine Urobilinogen Ur Leukocyte Esterase Urine WBC (Auto) Urine RBC (Auto) U Epithel Cells (Auto) Urine Bacteria (Auto) Ur Random Sodium Ur Random Potassium Ur Random Chloride Acetone, Qual 09/02/19 09/02/19 09/02/19 03:00 03:00 03:00 WBC 15.8 H RBC 4.40 Hgb 12.5 Hct 37.8 MCV 86.0 MCH 28.5 MCHC 33.1 RDW 13.6 Plt Count 180 MPV 9.5 Absolute Neuts (auto) Neutrophils % Lymphocytes % Monocytes % Eosinophils % Basophils % Nucleated RBC % PT with INR INR Anticoagulation Therapy Puncture Site ABG pH ABG pCO2 at Pt Temp ABG pO2 at Pt Temp ABG HCO3 ABG O2 Sat (Measured) ABG O2 Content ABG Base Excess Manuel Test Carboxyhemoglobin Methemoglobin O2 Delivery Device Oxygen Flow Rate Vent Mode Vent Rate Mechanical Rate Pressure Support Vent Sodium 144 Potassium 4.3 Chloride 105 Carbon Dioxide 31 Anion Gap 9 BUN 49.4 H Creatinine 2.2 H Est GFR (CKD-EPI)AfAm 31.84 Est GFR (CKD-EPI)NonAf 27.47 POC Glucometer Random Glucose 351 H Lactic Acid 3.4 H* Calcium 9.8 Phosphorus Magnesium Total Bilirubin AST ALT Alkaline Phosphatase Troponin I 0.03 Total Protein Albumin Lipase Urine Color Urine Appearance Urine pH Ur Specific [place] Urine Protein Urine Glucose (UA) Urine Ketones Urine Blood Urine Nitrite Urine Bilirubin Urine Urobilinogen Ur Leukocyte Esterase Urine WBC (Auto) Urine RBC (Auto) U Epithel Cells (Auto) Urine Bacteria (Auto) Ur Random Sodium Ur Random Potassium Ur Random Chloride Acetone, Qual 09/02/19 09/02/19 09/02/19 03:00 03:48 04:37 WBC RBC Hgb Hct MCV MCH MCHC RDW Plt Count MPV Absolute Neuts (auto) Neutrophils % Lymphocytes % Monocytes % Eosinophils % Basophils % Nucleated RBC % PT with INR INR Anticoagulation Therapy Puncture Site ABG pH ABG pCO2 at Pt Temp ABG pO2 at Pt Temp ABG HCO3 ABG O2 Sat (Measured) ABG O2 Content ABG Base Excess Manuel Test Carboxyhemoglobin Methemoglobin O2 Delivery Device Oxygen Flow Rate Vent Mode Vent Rate Mechanical Rate Pressure Support Vent Sodium Potassium Chloride Carbon Dioxide Anion Gap BUN Creatinine Est GFR (CKD-EPI)AfAm Est GFR (CKD-EPI)NonAf POC Glucometer 252 205 Random Glucose Lactic Acid Calcium Phosphorus Magnesium Total Bilirubin AST ALT Alkaline Phosphatase Troponin I Total Protein Albumin Lipase Urine Color Urine Appearance Urine pH Ur Specific [place] Urine Protein Urine Glucose (UA) Urine Ketones Urine Blood Urine Nitrite Urine Bilirubin Urine Urobilinogen Ur Leukocyte Esterase Urine WBC (Auto) Urine RBC (Auto) U Epithel Cells (Auto) Urine Bacteria (Auto) Ur Random Sodium 10 L Ur Random Potassium 22.0 L Ur Random Chloride < 11 L Acetone, Qual 09/02/19 09/02/19 09/02/19 05:38 05:50 06:26 WBC RBC Hgb Hct MCV MCH MCHC RDW Plt Count MPV Absolute Neuts (auto) Neutrophils % Lymphocytes % Monocytes % Eosinophils % Basophils % Nucleated RBC % PT with INR INR Anticoagulation Therapy Puncture Site ABG pH ABG pCO2 at Pt Temp ABG pO2 at Pt Temp ABG HCO3 ABG O2 Sat (Measured) ABG O2 Content ABG Base Excess Manuel Test Carboxyhemoglobin Methemoglobin O2 Delivery Device Oxygen Flow Rate Vent Mode Vent Rate Mechanical Rate Pressure Support Vent Sodium 146 H Potassium 4.0 Chloride 108 H Carbon Dioxide 30 Anion Gap 8 BUN 45.1 H Creatinine 1.9 H Est GFR (CKD-EPI)AfAm 38.02 Est GFR (CKD-EPI)NonAf 32.80 POC Glucometer 158 166 Random Glucose 148 H Lactic Acid Calcium 9.7 Phosphorus 2.0 L Magnesium 3.1 H Total Bilirubin AST ALT Alkaline Phosphatase Troponin I Total Protein Albumin Lipase Urine Color Urine Appearance Urine pH Ur Specific [place] Urine Protein Urine Glucose (UA) Urine Ketones Urine Blood Urine Nitrite Urine Bilirubin Urine Urobilinogen Ur Leukocyte Esterase Urine WBC (Auto) Urine RBC (Auto) U Epithel Cells (Auto) Urine Bacteria (Auto) Ur Random Sodium Ur Random Potassium Ur Random Chloride Acetone, Qual 09/02/19 09/02/19 09/02/19 06:55 08:20 10:57 WBC 14.9 H RBC 4.14 Hgb 12.0 Hct 35.8 MCV 86.7 MCH 29.1 MCHC 33.6 RDW 13.6 Plt Count 159 MPV 9.3 Absolute Neuts (auto) 11.6 H Neutrophils % 78.3 Lymphocytes % 8.4 D Monocytes % 12.2 H Eosinophils % 0.3 D Basophils % 0.8 Nucleated RBC % 0 PT with INR INR Anticoagulation Therapy Puncture Site ABG pH ABG pCO2 at Pt Temp ABG pO2 at Pt Temp ABG HCO3 ABG O2 Sat (Measured) ABG O2 Content ABG Base Excess Manuel Test Carboxyhemoglobin Methemoglobin O2 Delivery Device Oxygen Flow Rate Vent Mode Vent Rate Mechanical Rate Pressure Support Vent Sodium Potassium Chloride Carbon Dioxide Anion Gap BUN Creatinine Est GFR (CKD-EPI)AfAm Est GFR (CKD-EPI)NonAf POC Glucometer 367 Random Glucose Lactic Acid 1.8 Calcium Phosphorus Magnesium Total Bilirubin AST ALT Alkaline Phosphatase Troponin I Total Protein Albumin Lipase Urine Color Urine Appearance Urine pH Ur Specific [place] Urine Protein Urine Glucose (UA) Urine Ketones Urine Blood Urine Nitrite Urine Bilirubin Urine Urobilinogen Ur Leukocyte Esterase Urine WBC (Auto) Urine RBC (Auto) U Epithel Cells (Auto) Urine Bacteria (Auto) Ur Random Sodium Ur Random Potassium Ur Random Chloride Acetone, Qual ASSESSMENT AND PLAN: Hyperosmolar Hyperglycemic state KIKI AMS: (?) NPH Lactic acidosis Ketonuria Pseudohyponatremia Hypoalbuminemia Leukocytosis: R/O source Glycemic control Aspiration precautions O2 as needed IVF Strict I & O Replete lytes as needed Neurology evaluation DC arguello VTE prophylaxis Floor Dr Fernandez
--- NOTE | 2019-09-02 11:34 | CON.NEURO ---
Consult Consult Specialty:: Grace Referred by:: ICU resident Reason for Consultation:: ams - History of Present Illness History of Present Illness: 79-year-old right-handed man with multiple medical problem including 1. Coronary artery disease. Insulin-dependent diabetes Osteoarthritis Coronary artery disease Dementia at baseline. Hypertension Patient was brought in to [facility] yesterday with a chief complaint of worsening mental status. Patient is not able to provide any history. Patient was evaluated in the emergency room CAT scan of the head revealed no evidence of acute pathology. Patient was stepwise been admitted to the medical ICU. Patient was found to be hyperglycemic I reviewed the images of the CAT scan of the head which revealed evidence of ventriculomegaly very typical of hydrocephalus associated with normal pressure. Patient himself is a poor historian. Patient was seen in the medical ICU Patient was evaluated with the at the bedside patient was alert awake oriented. Patient was uncooperative with the exam. I last saw the patient March 2017 he was evaluated for dementia. Patient had MRI of the brain in the past which showed supratentorial atrophy that was done in 2016. - History Source History Provided By: Family Member, Medical Record Limitations to Obtaining History: Clinical Condition - Past Medical History Cardio/Vascular: Yes: CAD, HTN, Hyperlipdemia Pulmonary: Yes: Asthma, COPD - Past Surgical History Past Surgical History: Yes: CABG, Joint Replacement (R hip ORIF) - Alcohol/Substance Use Hx Alcohol Use: No - Smoking History Smoking history: Former smoker Have you smoked in the past 12 months: No Aproximately how many cigarettes per day: 0 If you are a former smoker, when did you quit?: '96 - Social History Usual Living Arrangement: With Spouse ADL: Family Assistance History of Recent Travel: No Home Medications - Allergies Allergies/Adverse Reactions: Allergies Allergy/AdvReac Type Severity Reaction Status Date / Time No Known Allergies Allergy Verified 01/11/19 11:57 - Home Medications Home Medications: Ambulatory Orders Atorvastatin Ca [Lipitor] 40 mg PO DAILY 05/06/19 Clopidogrel Bisulfate [Plavix] 75 mg PO DAILY 05/06/19 Ezetimibe 10 mg PO HS 05/06/19 Furosemide 20 mg PO DAILY 05/06/19 Insulin Degludec [Tresiba] 6 unit SQ HS 05/06/19 Insulin Pump [Insulin Pump - (Nf)] 1 each NR DAILY 05/06/19 Nebivolol HCl [Bystolic] 2.5 mg PO HS 05/06/19 Tamsulosin HCl 0.4 mg PO DAILY 05/06/19 Review of Systems - Review of Systems Constitutional: reports: No Symptoms Neurological: reports: Change in Speech, Confusion Physical Exam-Neuro Vital Signs: Vital Signs Temperature 98.4 F 09/02/19 06:00 Pulse Rate 75 09/02/19 08:00 Respiratory Rate 18 09/02/19 08:00 Blood Pressure 120/43 L 09/02/19 08:00 O2 Sat by Pulse Oximetry (%) 100 09/02/19 01:57 Labs: CBC, BMP 09/02/19 08:20 09/02/19 05:50 INR, PTT INR 1.15 (0.83-1.09) H 09/01/19 21:00 - Neuro Exam Level Of Consciousness: Yes: Oriented to Person, Oriented to Place Eyes: Yes: PERRLA Speech: WNL Dominant Hand: Right Mini Mental Exam: 18 Cranial Nerves II-XII Intact: Yes Gag: Present DTR's: 1+ Left Bicep, 1+ Right Bicep, 1+ Left Brachioradialis, 1+ Right Brachioradialis Response to light touch: Normal Response to pain prick: Normal Response to temperature: Normal Response to vibration: Normal Motor Strength: 3/5: Left Arm, Right Arm, Left Leg, Right Leg Gait: Deferred Imaging - Results Cat Scan: Image Reviewed Problem List - Problems (1) Altered mental status Assessment/Plan: Altered mental status Toxic metabolic encephalopathy associated with hyperglycemia 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 1. In reference to the hydrocephalus the patient has multiple medical problems and I personally do not think that the patient will be a good candidate for intervention with shunt. We can get second opinion from neurosurgery and start the patient on physical therapy. 2. Tight blood sugar control. 3.Speech and swallow evaluation 4. Endocrine consult 5. Start Lexapro 10 mg once daily 6. Physical therapy 7. Baby aspirin Thank you very much for referring this patient for neurological consultation Jeannie Edwards MD Code(s): R41.82 - ALTERED MENTAL STATUS, UNSPECIFIED Qualifiers: Altered mental status type: somnolence Qualified Code(s): R40.0 - Somnolence
--- NOTE | 2019-09-02 12:34 | CONSULT ---
Admitting History and Physical - Primary Care Physician PCP: Shahid Arce - Admission History of Present Illness: 78 y/o male with baseline dementia, Insulin dependant diabetic with diabetic retinopathy, CAD, CKD, CHF and COPD, baseline dementia with recent progressive worsening, who presented to the ED with with AMS and abdominal pain. Labs were significant for serum glucose of 916, + serum ketones. 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 Seen by me in 2017-Dysphonic. Confused. INAJA and visually impaired. 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 Cardiovascular: Yes: CAD, HTN, Hyperlipdemia Pulmonary: Yes: Asthma, COPD - Past Surgical History Past Surgical History: Yes: CABG, Joint Replacement (R hip ORIF) - Smoking History Smoking history: Former smoker Have you smoked in the past 12 months: No Aproximately how many cigarettes per day: 0 If you are a former smoker, when did you quit?: '96 - Alcohol/Substance Use Hx Alcohol Use: No - Social History ADL: Family Assistance History of Recent Travel: No History - Admission Reason For Visit: ACUTE KIDNEY INJURY, DIABETIC KETOACIDOSIS, COLITI - Diagnostics CT Scan: Report Reviewed (CAT scan of the head revealed no evidence of acute pathology) - General Mental Status: Awake and Alert, Forgetful, Vague, Confused, Flat Affect Attention: Moderate Impairment Ability to Follow Directions: Poor Head/Neck Control: Needs Assist - Hearing Hearing: Impaired Hearing: Impaired Hearing Aide: No With Patient: No Speech Evaluation - Communication Primary Language: ROLO Communication: Yes: Simple Responses Oral Expression Ability: Yes: Mild Impairment, Moderate Impairment - Speech Production Able to Make Needs Known: Yes: Mildly Impaired, Moderately Impaired Intelligibility: Yes: Mildly Impaired, Moderately Impaired - Speech Characteristics Voice Loudness: Mildly Soft/Quiet Voice Pitch: Yes: Normal Voice Phonatory-based Quality: Yes: Dysphonia Speech Pattern: Impaired Speech Clarity: < 50% Articulation: Yes: Imprecise Rate of Speech: Too Fast - Language/Auditory Comprehension Observation: Able to respond to yes/no queries: No, Comprehends Conversational Speech: Yes (limited. simple), Benefits from Slow Speech: Yes, Benefits from Repetiton: Yes - Language/Verbal Expression Able to Respond to Simple Queries: Yes: Mildly Impaired, Moderately Impaired Able to Communicate Wants and Needs: Yes: Mildly Impaired, Moderately Impaired - Swallow Evaluation/Bedside Assessment Current Nutritional Intake: NPO Oral Secretions: Yes: WFL Dentition: Yes: Adequate Against Resistance Opening: Weak Against Resistance Closing: Weak Lingual Movement: Symmetric, Reduced Protrusion Lingual Speed of Movement: Reduced Lingual Movement Strgth Against Opposition: Reduced Laryngeal Movement: Able to Palpate Labial Seal: WFL Chewing: Impaired Oral Prep Time: Increased A-P Transit: WFL Timing of Swallow: Delayed Coughing/Throat Clear: No Change in Voice: No Recommendations - Speech Evaluation, Impression/Plan Impression: Confused, [place], visually inpaired, impaired mastication, swallowed well with 3 oz water test. - Dysphagia Impressions/Plan Dysphagia Impressions: Mild Impairment *Silent aspiration: cannot be R/O at bedside Dysphagia Treatment Plan: Small Bites, Chin Tuck/Down, Clear Pocket Food, Trial Feedings, Safe Rate, 1/2 tsp. at a time, Elevate HOB during feed - Recommendations Diet Consistency: Dysphagia Minced Medication Administration: Crushed with applesauce Liquids: Thin Liquids Supplement: Magic Cup, Glucerna
--- NOTE | 2019-09-02 12:58 | PN ---
Teaching Attending Note Name of Resident: Stevie Grubbs ATTENDING PHYSICIAN STATEMENT I saw and evaluated the patient. I reviewed the resident's note and discussed the case with the resident. I agree with the resident's findings and plan as documented. SUBJECTIVE: Patient is lethargic, arousable, and confused. He appears comfortable. OBJECTIVE: Vital Signs Period Temp Pulse Resp BP Sys/Poole Pulse Ox Last 24 Hr 98 F-98.6 F 75-88 17-19 94-129/43-108 100-100 GENERAL: Lethargic, arousable, confused, in no distress HEART: S1S2, RRR LUNGS: Clear ABDOMEN: Soft, non-distended, no apparent tenderness, normal BS EXTREMITIES: No edema Laboratory Results - last 24 hr 09/01/19 09/01/19 09/01/19 20:43 21:00 21:00 WBC 18.0 H RBC 4.69 Hgb 13.5 Hct 42.1 D MCV 89.8 MCH 28.9 MCHC 32.1 RDW 13.7 Plt Count 191 D MPV 10.3 Absolute Neuts (auto) 15.3 H Neutrophils % 84.6 H D Lymphocytes % 5.4 L D Monocytes % 9.3 Eosinophils % 0.1 D Basophils % 0.6 Nucleated RBC % 0 PT with INR INR Anticoagulation Therapy Puncture Site ABG pH ABG pCO2 at Pt Temp ABG pO2 at Pt Temp ABG HCO3 ABG O2 Sat (Measured) ABG O2 Content ABG Base Excess Manuel Test Carboxyhemoglobin Methemoglobin O2 Delivery Device Oxygen Flow Rate Vent Mode Vent Rate Mechanical Rate Pressure Support Vent Sodium 131 L Potassium 5.6 H Chloride 91 L Carbon Dioxide 24 Anion Gap 16 BUN 56.2 H Creatinine 2.5 H Est GFR (CKD-EPI)AfAm 27.28 Est GFR (CKD-EPI)NonAf 23.54 POC Glucometer > 600 Random Glucose 916 H* Lactic Acid Calcium 9.6 Phosphorus Magnesium Total Bilirubin 0.5 AST 13 L ALT 17 Alkaline Phosphatase 248 H Troponin I 0.05 Total Protein 7.6 Albumin 3.3 L Lipase 114 Urine Color Urine Appearance Urine pH Ur Specific [place] Urine Protein Urine Glucose (UA) Urine Ketones Urine Blood Urine Nitrite Urine Bilirubin Urine Urobilinogen Ur Leukocyte Esterase Urine WBC (Auto) Urine RBC (Auto) U Epithel Cells (Auto) Urine Bacteria (Auto) Ur Random Sodium Ur Random Potassium Ur Random Chloride Acetone, Qual Positive small 1+ 09/01/19 09/01/19 09/01/19 21:00 21:00 21:16 WBC RBC Hgb Hct MCV MCH MCHC RDW Plt Count MPV Absolute Neuts (auto) Neutrophils % Lymphocytes % Monocytes % Eosinophils % Basophils % Nucleated RBC % PT with INR 13.60 H INR 1.15 H Anticoagulation Therapy Puncture Site ABG pH ABG pCO2 at Pt Temp ABG pO2 at Pt Temp ABG HCO3 ABG O2 Sat (Measured) ABG O2 Content ABG Base Excess Manuel Test Carboxyhemoglobin Methemoglobin O2 Delivery Device Oxygen Flow Rate Vent Mode Vent Rate Mechanical Rate Pressure Support Vent Sodium Potassium Chloride Carbon Dioxide Anion Gap BUN Creatinine Est GFR (CKD-EPI)AfAm Est GFR (CKD-EPI)NonAf POC Glucometer Random Glucose Lactic Acid 2.1 H Calcium Phosphorus Magnesium Total Bilirubin AST ALT Alkaline Phosphatase Troponin I Total Protein Albumin Lipase Urine Color Yellow Urine Appearance Clear Urine pH 5.5 Ur Specific [place] <= 1.005 L Urine Protein Negative Urine Glucose (UA) 3+ H Urine Ketones 2+ H Urine Blood Trace-intact Urine Nitrite Negative Urine Bilirubin Negative Urine Urobilinogen 0.2 Ur Leukocyte Esterase 1+ H Urine WBC (Auto) 30-50 Urine RBC (Auto) 0-4 U Epithel Cells (Auto) 0-5 Urine Bacteria (Auto) Moderate Ur Random Sodium Ur Random Potassium Ur Random Chloride Acetone, Qual 09/01/19 09/02/19 09/02/19 23:00 00:20 00:20 WBC RBC Hgb Hct MCV MCH MCHC RDW Plt Count MPV Absolute Neuts (auto) Neutrophils % Lymphocytes % Monocytes % Eosinophils % Basophils % Nucleated RBC % PT with INR INR Anticoagulation Therapy Puncture Site ABG pH ABG pCO2 at Pt Temp ABG pO2 at Pt Temp ABG HCO3 ABG O2 Sat (Measured) ABG O2 Content ABG Base Excess Manuel Test Carboxyhemoglobin Methemoglobin O2 Delivery Device Oxygen Flow Rate Vent Mode Vent Rate Mechanical Rate Pressure Support Vent Sodium 137 Potassium 4.8 Chloride 98 Carbon Dioxide 24 Anion Gap 14 BUN 57.2 H Creatinine 2.3 H Est GFR (CKD-EPI)AfAm 30.17 Est GFR (CKD-EPI)NonAf 26.04 POC Glucometer Random Glucose 744 H* Lactic Acid 3.1 H* Calcium 9.5 Phosphorus 3.2 Cancelled Magnesium 3.1 H Cancelled Total Bilirubin AST ALT Alkaline Phosphatase Troponin I Total Protein Albumin Lipase Urine Color Urine Appearance Urine pH Ur Specific [place] Urine Protein Urine Glucose (UA) Urine Ketones Urine Blood Urine Nitrite Urine Bilirubin Urine Urobilinogen Ur Leukocyte Esterase Urine WBC (Auto) Urine RBC (Auto) U Epithel Cells (Auto) Urine Bacteria (Auto) Ur Random Sodium Ur Random Potassium Ur Random Chloride Acetone, Qual 09/02/19 09/02/19 09/02/19 00:45 01:30 02:33 WBC RBC Hgb Hct MCV MCH MCHC RDW Plt Count MPV Absolute Neuts (auto) Neutrophils % Lymphocytes % Monocytes % Eosinophils % Basophils % Nucleated RBC % PT with INR INR Anticoagulation Therapy No Result Required. Puncture Site Right radial ABG pH 7.42 ABG pCO2 at Pt Temp 38.6 ABG pO2 at Pt Temp 84.6 ABG HCO3 24.4 ABG O2 Sat (Measured) 96.8 ABG O2 Content 16.3 ABG Base Excess 0.5 Manuel Test Positive Carboxyhemoglobin 2.2 H Methemoglobin < 1.0 O2 Delivery Device Room air Oxygen Flow Rate 21% Vent Mode No Result Required. Vent Rate No Result Required. Mechanical Rate No Result Required. Pressure Support Vent No Result Required. Sodium Potassium Chloride Carbon Dioxide Anion Gap BUN Creatinine Est GFR (CKD-EPI)AfAm Est GFR (CKD-EPI)NonAf POC Glucometer 485 363 Random Glucose Lactic Acid Calcium Phosphorus Magnesium Total Bilirubin AST ALT Alkaline Phosphatase Troponin I Total Protein Albumin Lipase Urine Color Urine Appearance Urine pH Ur Specific [place] Urine Protein Urine Glucose (UA) Urine Ketones Urine Blood Urine Nitrite Urine Bilirubin Urine Urobilinogen Ur Leukocyte Esterase Urine WBC (Auto) Urine RBC (Auto) U Epithel Cells (Auto) Urine Bacteria (Auto) Ur Random Sodium Ur Random Potassium Ur Random Chloride Acetone, Qual 09/02/19 09/02/19 09/02/19 03:00 03:00 03:00 WBC 15.8 H RBC 4.40 Hgb 12.5 Hct 37.8 MCV 86.0 MCH 28.5 MCHC 33.1 RDW 13.6 Plt Count 180 MPV 9.5 Absolute Neuts (auto) Neutrophils % Lymphocytes % Monocytes % Eosinophils % Basophils % Nucleated RBC % PT with INR INR Anticoagulation Therapy Puncture Site ABG pH ABG pCO2 at Pt Temp ABG pO2 at Pt Temp ABG HCO3 ABG O2 Sat (Measured) ABG O2 Content ABG Base Excess Manuel Test Carboxyhemoglobin Methemoglobin O2 Delivery Device Oxygen Flow Rate Vent Mode Vent Rate Mechanical Rate Pressure Support Vent Sodium 144 Potassium 4.3 Chloride 105 Carbon Dioxide 31 Anion Gap 9 BUN 49.4 H Creatinine 2.2 H Est GFR (CKD-EPI)AfAm 31.84 Est GFR (CKD-EPI)NonAf 27.47 POC Glucometer Random Glucose 351 H Lactic Acid 3.4 H* Calcium 9.8 Phosphorus Magnesium Total Bilirubin AST ALT Alkaline Phosphatase Troponin I 0.03 Total Protein Albumin Lipase Urine Color Urine Appearance Urine pH Ur Specific [place] Urine Protein Urine Glucose (UA) Urine Ketones Urine Blood Urine Nitrite Urine Bilirubin Urine Urobilinogen Ur Leukocyte Esterase Urine WBC (Auto) Urine RBC (Auto) U Epithel Cells (Auto) Urine Bacteria (Auto) Ur Random Sodium Ur Random Potassium Ur Random Chloride Acetone, Qual 09/02/19 09/02/19 09/02/19 03:00 03:48 04:37 WBC RBC Hgb Hct MCV MCH MCHC RDW Plt Count MPV Absolute Neuts (auto) Neutrophils % Lymphocytes % Monocytes % Eosinophils % Basophils % Nucleated RBC % PT with INR INR Anticoagulation Therapy Puncture Site ABG pH ABG pCO2 at Pt Temp ABG pO2 at Pt Temp ABG HCO3 ABG O2 Sat (Measured) ABG O2 Content ABG Base Excess Manuel Test Carboxyhemoglobin Methemoglobin O2 Delivery Device Oxygen Flow Rate Vent Mode Vent Rate Mechanical Rate Pressure Support Vent Sodium Potassium Chloride Carbon Dioxide Anion Gap BUN Creatinine Est GFR (CKD-EPI)AfAm Est GFR (CKD-EPI)NonAf POC Glucometer 252 205 Random Glucose Lactic Acid Calcium Phosphorus Magnesium Total Bilirubin AST ALT Alkaline Phosphatase Troponin I Total Protein Albumin Lipase Urine Color Urine Appearance Urine pH Ur Specific [place] Urine Protein Urine Glucose (UA) Urine Ketones Urine Blood Urine Nitrite Urine Bilirubin Urine Urobilinogen Ur Leukocyte Esterase Urine WBC (Auto) Urine RBC (Auto) U Epithel Cells (Auto) Urine Bacteria (Auto) Ur Random Sodium 10 L Ur Random Potassium 22.0 L Ur Random Chloride < 11 L Acetone, Qual 09/02/19 09/02/19 09/02/19 05:38 05:50 06:26 WBC RBC Hgb Hct MCV MCH MCHC RDW Plt Count MPV Absolute Neuts (auto) Neutrophils % Lymphocytes % Monocytes % Eosinophils % Basophils % Nucleated RBC % PT with INR INR Anticoagulation Therapy Puncture Site ABG pH ABG pCO2 at Pt Temp ABG pO2 at Pt Temp ABG HCO3 ABG O2 Sat (Measured) ABG O2 Content ABG Base Excess Manuel Test Carboxyhemoglobin Methemoglobin O2 Delivery Device Oxygen Flow Rate Vent Mode Vent Rate Mechanical Rate Pressure Support Vent Sodium 146 H Potassium 4.0 Chloride 108 H Carbon Dioxide 30 Anion Gap 8 BUN 45.1 H Creatinine 1.9 H Est GFR (CKD-EPI)AfAm 38.02 Est GFR (CKD-EPI)NonAf 32.80 POC Glucometer 158 166 Random Glucose 148 H Lactic Acid Calcium 9.7 Phosphorus 2.0 L Magnesium 3.1 H Total Bilirubin AST ALT Alkaline Phosphatase Troponin I Total Protein Albumin Lipase Urine Color Urine Appearance Urine pH Ur Specific [place] Urine Protein Urine Glucose (UA) Urine Ketones Urine Blood Urine Nitrite Urine Bilirubin Urine Urobilinogen Ur Leukocyte Esterase Urine WBC (Auto) Urine RBC (Auto) U Epithel Cells (Auto) Urine Bacteria (Auto) Ur Random Sodium Ur Random Potassium Ur Random Chloride Acetone, Qual 09/02/19 09/02/19 09/02/19 06:55 08:20 10:57 WBC 14.9 H RBC 4.14 Hgb 12.0 Hct 35.8 MCV 86.7 MCH 29.1 MCHC 33.6 RDW 13.6 Plt Count 159 MPV 9.3 Absolute Neuts (auto) 11.6 H Neutrophils % 78.3 Lymphocytes % 8.4 D Monocytes % 12.2 H Eosinophils % 0.3 D Basophils % 0.8 Nucleated RBC % 0 PT with INR INR Anticoagulation Therapy Puncture Site ABG pH ABG pCO2 at Pt Temp ABG pO2 at Pt Temp ABG HCO3 ABG O2 Sat (Measured) ABG O2 Content ABG Base Excess Manuel Test Carboxyhemoglobin Methemoglobin O2 Delivery Device Oxygen Flow Rate Vent Mode Vent Rate Mechanical Rate Pressure Support Vent Sodium Potassium Chloride Carbon Dioxide Anion Gap BUN Creatinine Est GFR (CKD-EPI)AfAm Est GFR (CKD-EPI)NonAf POC Glucometer 367 Random Glucose Lactic Acid 1.8 Calcium Phosphorus Magnesium Total Bilirubin AST ALT Alkaline Phosphatase Troponin I Total Protein Albumin Lipase Urine Color Urine Appearance Urine pH Ur Specific [place] Urine Protein Urine Glucose (UA) Urine Ketones Urine Blood Urine Nitrite Urine Bilirubin Urine Urobilinogen Ur Leukocyte Esterase Urine WBC (Auto) Urine RBC (Auto) U Epithel Cells (Auto) Urine Bacteria (Auto) Ur Random Sodium Ur Random Potassium Ur Random Chloride Acetone, Qual Current Medications Generic Name Dose Route Start Last Admin Trade Name Freq PRN Reason Stop Dose Admin Atorvastatin Calcium 40 mg 09/02/19 22:00 Lipitor - PO HS DAISHA Chlorhexidine Gluconate 1 applic 09/02/19 22:00 Hibiclens For Decolonization - TP HS DAISHA Clopidogrel Bisulfate 75 mg 09/02/19 10:00 09/02/19 09:34 Plavix - PO 75 mg DAILY DAISHA Administration Ezetimibe 10 mg 09/02/19 22:00 Zetia - PO HS DAISHA Heparin Sodium (Porcine) 5,000 unit 09/02/19 06:00 09/02/19 05:35 Heparin - SQ 5,000 unit TID DAISHA Administration Potassium Phosphate 20 mm/ 256.6667 mls @ 62.5 mls/hr 09/02/19 09:15 10:52 Sodium Chloride IVPB 09/02/19 13:21 62.5 mls/hr ONCE ONE Administration Dextrose/Lactated Ringer's 1,000 mls @ 100 mls/hr 09/02/19 10:15 09/02/19 10: 52 D5-Lr - IV 100 mls/hr ASDIR DAISHA Administration Insulin Aspart 1 vial 09/02/19 07:00 09/02/19 11:56 Novolog Vial Sliding Scale - SQ 10 units ACHS DAISHA Administration Protocol Mupirocin 1 applic 09/02/19 10:00 09/02/19 09:35 Bactroban Ointment (For Decolonization) - NS 09/07/19 09:59 1 applic BID DAISHA Administration Nebivolol 2.5 mg 09/02/19 22:00 Bystolic - PO HS DAISHA Tamsulosin HCl 0.4 mg 09/02/19 08:30 09/02/19 08:30 Flomax - PO 0.4 mg DAILY@0830 DAISHA Administration ASSESSMENT AND PLAN: This is a 79 year old man with a history of HTN, hyperlipidemia, CAD, [place], CABG, chronic diastolic heart failure, type 2 DM, stage 3 CKD, COPD, dementia who presented to the ED with altered mental status. 1. Acute metabolic encephalopathy secondary to hyperosmolar hyperglycemic state from uncontrolled type 2 DM - HbA1c 12.6 - Insulin drip discontinued - Novolog sliding scale started - Start Levemir 2. Acute kidney injury - Improving - Continue IV fluid - Continue to hold Lasix 3. Abdominal pain secondary to constipation 4. UTI - Levaquin, Flagyl given in ED - Ceftriaxone started - Follow-up urine culture 5. Lactic acidosis - Improved with IV fluid 6. Hypernatremia - Continue IV fluid 7. Hypophosphatemia - Supplement phosphorus 8. HTN - Continue Bystolic 9. Hyperlipidemia - Continue Lipitor, Zetia 10. CAD, history of [place], CABG - Continue Bystolic, Plavix, Lipitor, Zetia 11. Chronic diastolic heart failure - Stable 12. Stage 3 CKD 13. COPD - Stable 14. Alzheimer dementia
--- NOTE | 2019-09-02 13:50 | PN ---
Progress Note (short form) - Note Progress Note: HPI: Limited due to patients clinical condition. Insulin gtt was discontinued on previous night Vital Signs Temperature 98.4 F 09/02/19 06:00 Pulse Rate 83 09/02/19 12:00 Respiratory Rate 18 09/02/19 12:12 Blood Pressure 129/53 L 09/02/19 12:00 O2 Sat by Pulse Oximetry (%) 100 09/02/19 12:12 PE: Gen: NAD, somnolent, nonverbal, contracted, oriented to self HEENT: NC/AT, opacification of R eye, sclera anicteric, [id number] mucosa Neck: No JVD Lungs: CTA b/l no wheezes or rales CARD: RRR no murmurs ABD: No facial grimmacing to palpation, soft, nondistended, no guarding EXT: no edema CBC, BMP 09/02/19 08:20 Active Medications Atorvastatin Calcium (Lipitor -) 40 mg PO HS [facility] Chlorhexidine Gluconate (Hibiclens For Decolonization -) 1 applic TP HS [facility] Clopidogrel Bisulfate (Plavix -) 75 mg PO DAILY [facility] Last Admin: 09/02/19 09:34 Dose: 75 mg Ezetimibe (Zetia -) 10 mg PO HS [facility] Heparin Sodium (Porcine) (Heparin -) 5,000 unit SQ TID [facility] Last Admin: 09/02/19 05:35 Dose: 5,000 unit Dextrose/Lactated Ringer's (D5-Lr -) 1,000 mls @ 100 mls/hr IV ASDIR [facility] Last Admin: 09/02/19 10:52 Dose: 100 mls/hr Insulin Aspart (Novolog Vial Sliding Scale -) 1 vial SQ ACHS [facility]; Protocol Last Admin: 09/02/19 11:56 Dose: 10 units Mupirocin (Bactroban Ointment (For Decolonization) -) 1 applic NS BID [facility] Stop: 09/07/19 09:59 Last Admin: 09/02/19 09:35 Dose: 1 applic Nebivolol (Bystolic -) 2.5 mg PO HS DAISHA Tamsulosin HCl (Flomax -) 0.4 mg PO DAILY@0830 [facility] Last Admin: 09/02/19 08:30 Dose: 0.4 mg A/P Hyperosmolar hyperglycemia state (resolving) Acute kidney insufficiency Acute metabolic encephalopathy; r/o NPH Dementia Leukocytosis --Insulin gtt discontinued in night due to anion gap closure --Switch to Lactated ringers to avoid NAGMA to continue at 100cc/hr --Glycemic control with ISS --Will need to assess ability to eat to initiate long-acting insulin regiment --Neurology consulted for ?NPH; prior head CT reviewed --Will need to speak with family/ICU team about pt's baseline --Continue home medications as below: Bystolic 2.5mg HS FLomax 0.4mg qdaily Ezetimibe 10mg HS Plavix 75mg qdaily Lipitor 40mg HS FEN: Fluids: LR@100cc/hr Electrolyte abnormalities: None this AM Nutrition: Speech and swallow PPX: DVT - Heparin SQ TID Dispo: Can transfer to medical floors Case discussed with Dr. Yazmin Grubbs, DO - IM PGY-3
[2019-09-02] MEDS: LACTATED RINGERS SOLUTION 1,000 ML/1,000 ML INFUS.BAG IV SCH (15:49)
[2019-09-02] MEDS ORDERED: PT OWN MED DRAWER 7, Y5N ONE (21:11)
[2019-09-02] MEDS: ATORVASTATIN CA 40 MG TABLET (FP) PO SCH (21:29)
[2019-09-02] MEDS: NEBIVOLOL 2.5 MG TABLET (FP) PO SCH (21:29)
[2019-09-02] MEDS: EZETIMIBE 10 MG TABLET (FP) PO SCH (21:30)
[2019-09-02] MEDS ORDERED: CHLORHEXIDINE GLUCONATE 4% CLEANSER FOR DECOLONIZATION TP SCH (22:00)
[2019-09-02] MEDS ORDERED: EZETIMIBE 10 MG TABLET (FP) PO SCH (22:00)
[2019-09-02] MEDS ORDERED: ATORVASTATIN CA 40 MG TABLET (FP) PO SCH (22:00)
[2019-09-02] MEDS ORDERED: NEBIVOLOL 2.5 MG TABLET (FP) PO SCH (22:00)
[2019-09-03] MEDS: HEPARIN NA (PORCINE) 5,000 UNITS/ML 1ML VIAL SQ SCH ×3 (06:40→22:49)
[2019-09-03] MEDS: INSULIN SLIDING SCALE (NOVOLOG) 1 VIAL SQ SCH ×4 (06:41→22:49)
[2019-09-03] MEDS: LACTATED RINGERS SOLUTION 1,000 ML/1,000 ML INFUS.BAG IV SCH (06:42)
[2019-09-03] MEDS: TAMSULOSIN HCL 0.4 MG CAP PO SCH (08:41)
[2019-09-03] MEDS ORDERED: ESCITALOPRAM OXALATE 10 MG TABLET (FP) PO SCH (10:00)
[2019-09-03] MEDS: CLOPIDOGREL BISULFATE 75 MG TABLET (FP) PO SCH (10:05)
--- NOTE | 2019-09-03 11:12 | PN ---
Progress Note, [employer] CONDITIONING [employer] - Note Progress Note: Selected Entries 09/02/19 09/02/19 09/02/19 01:44 01:57 06:00 Breakfast Diet Tolerated Temperature 98 F 98 F 98.4 F 09/03/19 09/03/19 09/03/19 02:00 06:00 10:59 Breakfast 75% Diet Tolerated Well Temperature 99.3 F 99.0 F Laboratory Tests 09/01/19 09/02/19 21:00 03:00 WBC 18.0 H 15.8 H Pt on Dys chopped/thin liquids, now on 6s. Confused. Resistant to care. Tolerating diet well. Receiving Magic cup/Glucerna for supplemental nutrition.
[2019-09-03] MEDS ORDERED: INSULIN (NOVOLOG) ASPART 100 UNITS/ML 10ML VIAL ONE (11:17)
[2019-09-03 13:58] LABS: BLOOD UREA NITROGEN 28.4 mg/dL (7-18); CREATININE 1.7 mg/dL (0.55-1.3); POTASSIUM 4.2 mmol/L (3.5-5.1)
--- NOTE | 2019-09-03 17:38 | PN ---
Teaching Attending Note Name of Resident: Stevie Grubbs ATTENDING PHYSICIAN STATEMENT I saw and evaluated the patient. I reviewed the resident's note and discussed the case with the resident. I agree with the resident's findings and plan as documented. SUBJECTIVE: Patient is more alert and remains confused. He appears comfortable. OBJECTIVE: Vital Signs Period Temp Pulse Resp BP Sys/[place] Pulse Ox Last 24 Hr 98.1 F-99.3 F 86-92 18-20 115-139/53-92 98-100 GENERAL: Awake, alert, confused, in no distress HEART: S1S2, RRR LUNGS: Clear ABDOMEN: Soft, non-distended, no apparent tenderness, normal BS EXTREMITIES: No edema Laboratory Results - last 24 hr 09/02/19 09/03/19 09/03/19 20:56 06:39 11:12 Sodium Potassium Chloride Carbon Dioxide Anion Gap BUN Creatinine Est GFR (CKD-EPI)AfAm Est GFR (CKD-EPI)NonAf POC Glucometer 458 430 409 Random Glucose Calcium 09/03/19 09/03/19 09/03/19 12:07 13:00 16:30 Sodium 146 H Potassium 4.2 Chloride 111 H Carbon Dioxide 27 Anion Gap 8 BUN 28.4 H Creatinine 1.7 H Est GFR (CKD-EPI)AfAm 43.49 Est GFR (CKD-EPI)NonAf 37.52 POC Glucometer 358 383 Random Glucose 358 H Calcium 9.0 Current Medications Generic Name Dose Route Start Last Admin Trade Name Freq PRN Reason Stop Dose Admin Atorvastatin Calcium 40 mg 09/02/19 22:00 09/02/19 21:29 Lipitor - PO Not Given HS DAISHA Clopidogrel Bisulfate 75 mg 09/03/19 10:00 09/03/19 10:05 Plavix - PO 75 mg DAILY DAISHA Administration Ezetimibe 10 mg 09/02/19 22:00 09/02/19 21:30 Zetia - PO Not Given HS DAISHA Escitalopram Oxalate 10 mg 09/03/19 10:00 09/03/19 10:05 Lexapro - PO 10 mg DAILY DAISHA Administration Heparin Sodium (Porcine) 5,000 unit 09/02/19 22:00 09/03/19 13:38 Heparin - SQ 5,000 unit TID DAISHA Administration Lactated Ringer's 1,000 ml in 1,000 mls @ 100 mls/hr 09/02/19 14:15 09/03/19 06:42 Lactated Ringers Solution IV 100 mls/hr ASDIR DAISHA Administration Insulin Aspart 1 vial 09/02/19 22:00 09/03/19 16:42 Novolog Vial Sliding Scale - SQ 10 units ACHS DAISHA Administration Protocol Insulin Detemir 10 units 09/03/19 22:00 Levemir Vial SQ HS DAISHA Nebivolol 2.5 mg 09/02/19 22:00 09/02/19 21:29 Bystolic - PO Not Given HS DAISHA Tamsulosin HCl 0.4 mg 09/03/19 08:30 09/03/19 08:41 Flomax - PO 0.4 mg DAILY@0830 [facility] Administration ASSESSMENT AND PLAN: This is a 79 year old man with a history of HTN, hyperlipidemia, CAD, [place], CABG, chronic diastolic heart failure, type 2 DM, stage 3 CKD, COPD, dementia who presented to the ED with altered mental status. 1. Acute metabolic encephalopathy secondary to hyperosmolar hyperglycemic state from uncontrolled type 2 DM - HbA1c 12.6 - Continue Levemir, Novolog sliding scale 2. Acute kidney injury - Improving - Continue IV fluid - Continue to hold Lasix 3. Abdominal pain secondary to constipation - Given Fleet enema - Pain appears to have resolved 4. Possible UTI - Levaquin, Flagyl given in ED - Ceftriaxone given yesterday - Follow-up urine culture 5. Lactic acidosis - Improved with IV fluid 6. Hypernatremia - Continue IV fluid 7. Hypophosphatemia - Given K-Phos - Recheck phosphorus 8. HTN - Continue Bystolic 9. Hyperlipidemia - Continue Lipitor, Zetia 10. CAD, history of [place], CABG - Continue Bystolic, Plavix, Lipitor, Zetia 11. Chronic diastolic heart failure - Stable 12. Stage 3 CKD 13. COPD - Stable 14. Alzheimer dementia
--- NOTE | 2019-09-03 18:13 | PN ---
Progress Note, Physician History of Present Illness: events noted Chart reviewed Off the medical ICU to the floor No significant change since yesterday no new neurological event Withdrawn confused garbled speech - Current Medication List Current Medications: Active Medications Atorvastatin Calcium (Lipitor -) 40 mg PO [facility] Last Admin: 09/02/19 21:29 Dose: Not Given Clopidogrel Bisulfate (Plavix -) 75 mg PO DAILY [facility] Last Admin: 09/03/19 10:05 Dose: 75 mg Ezetimibe (Zetia -) 10 mg PO [facility] Last Admin: 09/02/19 21:30 Dose: Not Given Escitalopram Oxalate (Lexapro -) 10 mg PO DAILY [facility] Last Admin: 09/03/19 10:05 Dose: 10 mg Heparin Sodium (Porcine) (Heparin -) 5,000 unit SQ TID [facility] Last Admin: 09/03/19 13:38 Dose: 5,000 unit Lactated Ringer's (Lactated Ringers Solution) 1,000 ml in 1,000 mls @ 100 mls/ hr IV ASDIR [facility] Last Admin: 09/03/19 06:42 Dose: 100 mls/hr Insulin Aspart (Novolog Vial Sliding Scale -) 1 vial SQ [facility]; Protocol Last Admin: 09/03/19 16:42 Dose: 10 units Insulin Detemir (Levemir Vial) 10 units SQ [facility] Nebivolol (Bystolic -) 2.5 mg PO [facility] Last Admin: 09/02/19 21:29 Dose: Not Given Tamsulosin HCl (Flomax -) 0.4 mg PO DAILY@0830 [facility] Last Admin: 09/03/19 08:41 Dose: 0.4 mg - Objective Vital Signs: Vital Signs Temperature 98.1 F 09/03/19 14:48 Pulse Rate 91 H 09/03/19 14:48 Respiratory Rate 18 09/03/19 14:48 Blood Pressure 115/53 L 09/03/19 14:48 O2 Sat by Pulse Oximetry (%) 98 09/03/19 09:00 Constitutional: Yes: Well Nourished Eyes: Yes: WNL Neurological: Yes: Alert, Oriented, Babinski positive ...Motor Strength: WNL Labs: CBC, BMP 09/02/19 08:20 09/03/19 13:00 INR, PTT INR 1.15 (0.83-1.09) H 09/01/19 21:00 Problem List - Problems (1) Altered mental status Assessment/Plan: Baseline dementia 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 Conservative treatment with medication 2. Patient is not a candidate for shunt 3. Fall precautions. 4. Trial of Aricept 5 mg once daily. 5. Trial of Lexapro 10 mg once daily. Code(s): R41.82 - ALTERED MENTAL STATUS, UNSPECIFIED Qualifiers: Altered mental status type: somnolence Qualified Code(s): R40.0 - Somnolence
[2019-09-03] MEDS ORDERED: DONEPEZIL HCL 5 MG TABLET (FP) PO SCH (18:15)
--- NOTE | 2019-09-03 20:06 | PN ---
Progress Note (short form) - Note Progress Note: HPI: Limited due to patients clinical condition. Pt remains with incoherent speech and relative altered mentation Vital Signs Temperature 98.1 F 09/03/19 14:48 Pulse Rate 91 H 09/03/19 14:48 Respiratory Rate 18 09/03/19 14:48 Blood Pressure 115/53 L 09/03/19 14:48 O2 Sat by Pulse Oximetry (%) 98 09/03/19 09:00 PE: Gen: NAD, nonverbal, contracted, oriented to self HEENT: NC/AT, opacification of R eye, sclera anicteric, MMM Neck: No JVD Lungs: CTA b/l no wheezes or rales CARD: RRR no murmurs ABD: No facial grimmacing to palpation, soft, nondistended, no guarding EXT: no edema CBC, BMP 09/02/19 08:20 09/03/19 13:00 Active Medications Atorvastatin Calcium (Lipitor -) 40 mg PO HS [facility] Last Admin: 09/02/19 21:29 Dose: Not Given Clopidogrel Bisulfate (Plavix -) 75 mg PO DAILY [facility] Last Admin: 09/03/19 10:05 Dose: 75 mg Donepezil HCl (Aricept -) 5 mg PO ONCE [facility] Last Admin: 09/03/19 18:54 Dose: 5 mg Ezetimibe (Zetia -) 10 mg PO HS [facility] Last Admin: 09/02/19 21:30 Dose: Not Given Escitalopram Oxalate (Lexapro -) 10 mg PO DAILY [facility] Stop: 09/09/19 18:11 Heparin Sodium (Porcine) (Heparin -) 5,000 unit SQ TID [facility] Last Admin: 09/03/19 13:38 Dose: 5,000 unit Lactated Ringer's (Lactated Ringers Solution) 1,000 ml in 1,000 mls @ 100 mls/ hr IV ASDIR [facility] Last Admin: 09/03/19 06:42 Dose: 100 mls/hr Insulin Aspart (Novolog Vial Sliding Scale -) 1 vial SQ [facility]; Protocol Last Admin: 09/03/19 16:42 Dose: 10 units Insulin Detemir (Levemir Vial) 10 units SQ [facility] Nebivolol (Bystolic -) 2.5 mg PO HS [facility] Last Admin: 09/02/19 21:29 Dose: Not Given Tamsulosin HCl (Flomax -) 0.4 mg PO DAILY@0830 [facility] Last Admin: 09/03/19 08:41 Dose: 0.4 mg A/P Hyperosmolar hyperglycemia state (resolving) Acute kidney insufficiency Acute metabolic encephalopathy; r/o NPH Dementia Leukocytosis --Hyperglycemia noted today --Added Long-acting insulin (Levemir 10U HS) weight-based calculated --ISS coverage for now --LR@100cc/hr continued --apprecited Neurology recommendations: Trial Lexapro 10mg qdaily and Aricept 5mg --Will need to speak with family about pt's baseline --Continue home medications as below: Bystolic 2.5mg HS FLomax 0.4mg qdaily Ezetimibe 10mg HS Plavix 75mg qdaily Lipitor 40mg HS FEN: Fluids: LR@100cc/hr Electrolyte abnormalities: HyperNa and HyperCl Nutrition: dysphagia chopped and nutritional supplementation PPX: DVT - Heparin SQ TID Dispo: Glycemic control; monitor on M/s Case discussed with Dr. Yazmin Grubbs, DO - IM PGY-3
[2019-09-03] MEDS ORDERED: INSULIN (LEVEMIR) 100 UNITS/ML UNITS SQ SCH (22:00)
[2019-09-03] MEDS: EZETIMIBE 10 MG TABLET (FP) PO SCH (22:49)
[2019-09-03] MEDS: ATORVASTATIN CA 40 MG TABLET (FP) PO SCH (22:49)
[2019-09-03] MEDS: NEBIVOLOL 2.5 MG TABLET (FP) PO SCH (22:49)
[2019-09-04] MEDS: LACTATED RINGERS SOLUTION 1,000 ML/1,000 ML INFUS.BAG IV SCH (03:37)
[2019-09-04] MEDS: INSULIN SLIDING SCALE (NOVOLOG) 1 VIAL SQ SCH ×4 (06:48→22:05)
[2019-09-04] MEDS: HEPARIN NA (PORCINE) 5,000 UNITS/ML 1ML VIAL SQ SCH ×3 (06:52→22:06)
[2019-09-04] MEDS ORDERED: INSULIN (NOVOLOG) ASPART 100 UNITS/ML 10ML VIAL ONE ×3 (07:08→16:49)
[2019-09-04] MEDS ORDERED: PT OWN MED DRAWER 7, Y5N ONE (07:08)
[2019-09-04 08:59] LABS: HEMATOCRIT 35.1 % (35.4-49); HEMOGLOBIN 11.8 GM/dL (11.7-16.9); MCH 29.6 pg (25.7-33.7); MCHC 33.6 g/dl (32.0-35.9); MEAN CELL VOLUME 88.1 fl (80-96); MEAN PLT VOLUME 10.2 fl (7.5-11.1); PLATELET COUNT 131 K/MM3 (134-434); RBC 3.99 M/mm3 (4.00-5.60); RDW 14.4 % (11.9-15.9); WHITE BLOOD COUNT 8.6 K/mm3 (4.0-10.0)
[2019-09-04 09:28] LABS: BLOOD UREA NITROGEN 18.2 mg/dL (7-18); CALCIUM 8.5 mg/dL (8.5-10.1); CREATININE 1.1 mg/dL (0.55-1.3); POTASSIUM 3.9 mmol/L (3.5-5.1)
[2019-09-04] MEDS: CLOPIDOGREL BISULFATE 75 MG TABLET (FP) PO SCH (09:58)
[2019-09-04] MEDS: TAMSULOSIN HCL 0.4 MG CAP PO SCH (09:58)
[2019-09-04] MEDS: ESCITALOPRAM OXALATE 10 MG TABLET (FP) PO SCH (09:58)
[2019-09-04] MEDS: DONEPEZIL HCL 5 MG TABLET (FP) PO SCH (09:58)
[2019-09-04] MEDS: SODIUM CHLORIDE 0.45% 1,000 ML IV SCH (11:29)
[2019-09-04] MEDS ORDERED: INSULIN (LEVEMIR) 100 UNITS/ML UNITS SQ ONE (12:15)
[2019-09-04] MEDS: ACETAMINOPHEN 325 MG TABLET (FP) PO PRN (12:31)
--- NOTE | 2019-09-04 13:55 | CONSULT ---
Consult Consult Specialty:: Nephrology Reason for Consultation:: KIKI and hypernatremia - History of Present Illness Chief Complaint: initially presented with elevated blood sugar History of Present Illness: Pt is a 79 year old male with pmhx of dm, cad, mi, cabg, chf, ckd, and dementia who presented to the ER with high blood sugar. The machine at home was reading above 600. His is at bedside and assisted with history. The chart was also reviewed. He was admitted and treated. His renal function improved with hydration however his serum sodium is elevated. I was called to evaluate him for kiki and hypernatremia. He is confused and unable to give much history. 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: Dementia Cardio/Vascular: Yes: CAD, HTN, Hyperlipdemia Pulmonary: Yes: Asthma, COPD Renal/: Yes: Renal Inusuff - Past Surgical History Past Surgical History: Yes: CABG, Joint Replacement (R hip ORIF) - Alcohol/Substance Use Hx Alcohol Use: No - Smoking History Smoking history: Former smoker Have you smoked in the past 12 months: No Aproximately how many cigarettes per day: 0 If you are a former smoker, when did you quit?: '96 - Social History Usual Living Arrangement: With Spouse ADL: Family Assistance History of Recent Travel: No Home Medications - Allergies Allergies/Adverse Reactions: Allergies Allergy/AdvReac Type Severity Reaction Status Date / Time No Known Allergies Allergy Verified 01/11/19 11:57 - Home Medications Home Medications: Ambulatory Orders Atorvastatin Ca [Lipitor] 40 mg PO DAILY 05/06/19 Clopidogrel Bisulfate [Plavix] 75 mg PO DAILY 05/06/19 Ezetimibe 10 mg PO HS 05/06/19 Furosemide 20 mg PO DAILY 05/06/19 Insulin Degludec [Tresiba] 6 unit SQ HS 05/06/19 Insulin Pump [Insulin Pump - (Nf)] 1 each NR DAILY 05/06/19 Nebivolol HCl [Bystolic] 2.5 mg PO HS 05/06/19 Tamsulosin HCl 0.4 mg PO DAILY 05/06/19 Family Medical History Family History: Unable to Obtain Review of Systems Unable to obtain ROS, reason: confused Physical Exam Vital Signs: Vital Signs Temperature 98.1 F 09/04/19 05:59 Pulse Rate 74 09/04/19 09:00 Respiratory Rate 18 09/04/19 09:00 Blood Pressure 147/73 09/04/19 09:00 O2 Sat by Pulse Oximetry (%) 98 09/03/19 09:00 Constitutional: Yes: Calm Eyes: Yes: Other (legaly blind) Neck: Yes: Supple Cardiovascular: Yes: S1, S2 Respiratory: Yes: CTA Bilaterally Gastrointestinal: Yes: Soft Renal/: Yes: Arguello Present Musculoskeletal: Yes: Muscle Weakness Edema: No Neurological: Yes: Confusion Labs: CBC, BMP 09/04/19 08:10 09/04/19 08:10 Laboratory Tests 09/01/19 09/01/19 09/01/19 21:00 21:00 23:00 WBC 18.0 H Sodium Creatinine 2.5 H 2.3 H 09/02/19 09/02/19 09/02/19 03:00 05:50 08:20 WBC 14.9 H Sodium 144 146 H Creatinine 2.2 H 1.9 H 09/03/19 09/04/19 09/04/19 13:00 08:10 08:10 WBC 8.6 Sodium 146 H 150 H Creatinine 1.7 H 1.1 Imaging - Results Ultrasound: Report Reviewed Problem List - Problems (1) KIKI (acute kidney injury) Code(s): N17.9 - ACUTE KIDNEY FAILURE, UNSPECIFIED (2) DKA (diabetic ketoacidoses) Code(s): E11.10 - TYPE 2 DIABETES MELLITUS WITH KETOACIDOSIS WITHOUT COMA Qualifiers: Diabetes mellitus type: type 2 Diabetes mellitus complication detail: without coma Qualified Code(s): E11.10 - Type 2 diabetes mellitus with ketoacidosis without coma (3) Acute renal failure Code(s): N17.9 - ACUTE KIDNEY FAILURE, UNSPECIFIED (4) Hypernatremia Code(s): E87.0 - HYPEROSMOLALITY AND HYPERNATREMIA Assessment/Plan Current Medications Generic Name Dose Route Start Last Admin Trade Name Freq PRN Reason Stop Dose Admin Acetaminophen 650 mg 09/04/19 10:34 09/04/19 12:31 Tylenol - PO 650 mg Q4H PRN Administration FEVER Atorvastatin Calcium 40 mg 09/02/19 22:00 09/03/19 22:49 Lipitor - PO 40 mg HS [facility] Administration Clopidogrel Bisulfate 75 mg 09/03/19 10:00 09/04/19 09:58 Plavix - PO 75 mg DAILY [facility] Administration Donepezil HCl 5 mg 09/04/19 10:00 09/04/19 09:58 Aricept - PO 5 mg DAILY [facility] Administration Ezetimibe 10 mg 09/02/19 22:00 09/03/19 22:49 Zetia - PO 10 mg HS [facility] Administration Escitalopram Oxalate 10 mg 09/04/19 10:00 09/04/19 09:58 Lexapro - PO 09/09/19 18:11 10 mg DAILY [facility] Administration Heparin Sodium (Porcine) 5,000 unit 09/02/19 22:00 09/04/19 06:52 Heparin - SQ 5,000 unit TID [facility] Administration Sodium Chloride 1,000 mls @ 83 mls/hr 09/04/19 10:15 09/04/19 11:29 1/2 Normal Saline IV 83 mls/hr ASDIR [facility] Administration Insulin Aspart 1 vial 09/04/19 08:10 09/04/19 11:31 Novolog Vial Sliding Scale - SQ 2 unit ACHS [facility] Administration Protocol Insulin Detemir 10 units 09/04/19 22:00 Levemir Vial SQ BID@0700,2200 [facility] Nebivolol 2.5 mg 09/02/19 22:00 09/03/19 22:49 Bystolic - PO 2.5 mg HS [facility] Administration Tamsulosin HCl 0.4 mg 09/03/19 08:30 09/04/19 09:58 Flomax - PO 0.4 mg DAILY@0830 [facility] Administration Vancomycin HCl 1,000 mg 09/04/19 14:00 Vancomycin (Pre-Docked) IVPB 09/04/19 14:01 ONCE ONE Protocol Impression 1. KIKI 2. DKA 3. hypernatremia 4. DM 5. dementia 6. cad Plan - cont hypotonic fluids - monitor serum sodium - renal function is improved - can d/c arguello cath - neuro input appreciated - KIKI likely secondary to dehydration from DKA
[2019-09-04] MEDS ORDERED: VANCOMYCIN 1 GM in D5W (PRE-DOCKED) 1,000 MG/250 ML IVPB ONE (14:00)
[2019-09-04 15:42] LABS: BLOOD UREA NITROGEN 20.2 mg/dL (7-18); CALCIUM 8.4 mg/dL (8.5-10.1); CREATININE 1.2 mg/dL (0.55-1.3); POTASSIUM 4.3 mmol/L (3.5-5.1)
--- NOTE | 2019-09-04 19:09 | PN ---
Progress Note (short form) - Note Progress Note: HPI: Limited due to patients clinical condition. Pt remains with incoherent speech and relative altered mentation Vital Signs Temperature 98.1 F 09/03/19 14:48 Pulse Rate 91 H 09/03/19 14:48 Respiratory Rate 18 09/03/19 14:48 Blood Pressure 115/53 L 09/03/19 14:48 O2 Sat by Pulse Oximetry (%) 98 09/03/19 09:00 PE: Gen: NAD, nonverbal, contracted, oriented to self HEENT: NC/AT, opacification of R eye, sclera anicteric, MMM Neck: No JVD Lungs: CTA b/l no wheezes or rales CARD: RRR no murmurs ABD: No facial grimmacing to palpation, soft, nondistended, no guarding EXT: no edema CBC, BMP 09/02/19 08:20 09/03/19 13:00 Active Medications Atorvastatin Calcium (Lipitor -) 40 mg PO HS [facility] Last Admin: 09/02/19 21:29 Dose: Not Given Clopidogrel Bisulfate (Plavix -) 75 mg PO DAILY [facility] Last Admin: 09/03/19 10:05 Dose: 75 mg Donepezil HCl (Aricept -) 5 mg PO ONCE [facility] Last Admin: 09/03/19 18:54 Dose: 5 mg Ezetimibe (Zetia -) 10 mg PO HS [facility] Last Admin: 09/02/19 21:30 Dose: Not Given Escitalopram Oxalate (Lexapro -) 10 mg PO DAILY [facility] Stop: 09/09/19 18:11 Heparin Sodium (Porcine) (Heparin -) 5,000 unit SQ TID [facility] Last Admin: 09/03/19 13:38 Dose: 5,000 unit Lactated Ringer's (Lactated Ringers Solution) 1,000 ml in 1,000 mls @ 100 mls/ hr IV ASDIR [facility] Last Admin: 09/03/19 06:42 Dose: 100 mls/hr Insulin Aspart (Novolog Vial Sliding Scale -) 1 vial SQ [facility]; Protocol Last Admin: 09/03/19 16:42 Dose: 10 units Insulin Detemir (Levemir Vial) 10 units SQ [facility] Nebivolol (Bystolic -) 2.5 mg PO HS [facility] Last Admin: 10/07/19 21:29 Dose: Not Given Tamsulosin HCl (Flomax -) 0.4 mg PO DAILY@0830 [facility] Last Admin: 09/03/19 08:41 Dose: 0.4 mg A/P Hyperosmolar hyperglycemia state (resolving) Acute kidney insufficiency Uncontrolled diabetes Acute metabolic encephalopathy; r/o NPH Dementia Leukocytosis --Uncontrolled glucose levels remain --Added Levemir 10U BID (previously required 22U BID) --Consult Endocrinology for recommendations re: insulin pump/basal rate --Switch to 1/2NS@100cc/hr --Apprecited Neurology recommendations: Continue Lexapro 10mg qdaily and Aricept 5mg --Continue home medications as below: Bystolic 2.5mg HS Flomax 0.4mg qdaily Ezetimibe 10mg HS Plavix 75mg qdaily Lipitor 40mg HS FEN: Fluids: LR@100cc/hr Electrolyte abnormalities: HyperNa and HyperCl Nutrition: dysphagia chopped and nutritional supplementation PPX: DVT - Heparin SQ TID Dispo: Glycemic control; monitor on M/s Case discussed with Dr. Joey Grubbs, DO - IM PGY-3 <Stevie Grubbs - Last Filed: 09/04/19 19:19> - Note Progress Note: Attending Addendum I have seen and examined the indicated patient independently/along with the resident team. I have personally verified all patel exam findings and historical components. I have personally interpreted all diagnostics indicated per todays orders and reviewed interpretation of indicated subspecialty services. This patient meets a high level of medical complexity and warrants inpatient admission to avoid decompensation and worsening of the indicated illness. 60 minutes have been spent in the completion of this admission. S: Agree with historical findings as outlined in resident documentation regarding history of present illness. Patient is a poor historian and cannot contribute any history of I did talk at length with his family who confirmed the pertinent details. He has poor mentation at baseline and cannot operate his insulin pump and cannot recall any of his values. He is a poor candidate for an insulin pump. We will consult Dr. Jaxon Le and have him evaluated for subcutaneous long-acting and sliding scale insulin. Family is in agreement. O: All vital signs reviewed per ER records and are as per EMR NAD, AAO, Resting in bed; mentating at baseline per prior encounters NC AT EOMI PERRLA Neck supple, trachea midline, no nani LN RRR s1/2 Lungs CTAB, w/ sym expansion NT ND +BS No skin breakdown or rashes noted CN2-12 wnl, no new focal deficits noted Muscle tone normal, no deficits in motor function or strength noted Normal mood, appropriate behavior, average insight A/P: Patient seen, examined, and discussed in depth with resident team. Problem list reviewed per resident note and agree with their discussion aside from as supplemented by myself below. Problems include: Diabetic ketoacidosis was subsequently poorly controlled glucose secondary to missed long-acting insulin has improved. Dr. Medellin was consulted the patient will be on 15 units twice daily of Levemir with sliding scale. Swallow evaluation with Lyn Sangita is pending. Patient is human apically stable and afebrile. Glycemic control is improved with glucose is trending between 100 and 200 with no hypoglycemic episodes noted. No symptomatic hyper or hypoglycemia. He has no red flag signs or symptoms on examination. He will be cleared for discharge in 24 hours. Continue to monitor on the floor; agree with plan as documented per resident note. <Hernesto Cook - Last Filed: 09/05/19 07:10>
[2019-09-04] MEDS ORDERED: INSULIN (LEVEMIR) 100 UNITS/ML UNITS SQ SCH (22:00)
[2019-09-04] MEDS: EZETIMIBE 10 MG TABLET (FP) PO SCH (22:04)
[2019-09-04] MEDS: NEBIVOLOL 2.5 MG TABLET (FP) PO SCH (22:05)
[2019-09-04] MEDS: ATORVASTATIN CA 40 MG TABLET (FP) PO SCH (22:05)
--- NOTE | 2019-09-05 00:42 | CONSULT ---
Consult Consult Specialty:: Endocrine Referred by:: [employer] Reason for Consultation:: uncontrolled T2DM - History of Present Illness Chief Complaint: high blood sugars History of Present Illness: 79 y/o/m with PMHx of T2DM, CAD s/p CABG, [place] in 1997, CHF, CKD, COPD, dementia, admitted for altered mental status from home. Patient unable to provide history secondary to mental status. He has been lethargic weak,poor po intake,high blood sugars despite insulin pump and injections, and decreased appetite, worsening neurological status,and difficulty controlling his blood sugars warranted admission. 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 Cardio/Vascular: Yes: CAD, HTN, Hyperlipdemia Pulmonary: Yes: Asthma, COPD Renal/: Yes: Renal Inusuff - Past Surgical History Past Surgical History: Yes: CABG, Joint Replacement (R hip ORIF) - Alcohol/Substance Use Hx Alcohol Use: No - Smoking History Smoking history: Former smoker Have you smoked in the past 12 months: No Aproximately how many cigarettes per day: 0 If you are a former smoker, when did you quit?: '96 - Social History Usual Living Arrangement: With Spouse ADL: Family Assistance History of Recent Travel: No Home Medications - Allergies Allergies/Adverse Reactions: Allergies Allergy/AdvReac Type Severity Reaction Status Date / Time No Known Allergies Allergy Verified 01/11/19 11:57 - Home Medications Home Medications: Ambulatory Orders Atorvastatin Ca [Lipitor] 40 mg PO DAILY 05/06/19 Clopidogrel Bisulfate [Plavix] 75 mg PO DAILY 05/06/19 Ezetimibe 10 mg PO HS 05/06/19 Furosemide 20 mg PO DAILY 05/06/19 Insulin Degludec [Tresiba] 6 unit SQ HS 05/06/19 Insulin Pump [Insulin Pump - (Nf)] 1 each NR DAILY 05/06/19 Nebivolol HCl [Bystolic] 2.5 mg PO HS 05/06/19 Tamsulosin HCl 0.4 mg PO DAILY 05/06/19 Review of Systems Unable to obtain ROS, reason: confused lethargic Physical Exam Vital Signs: Vital Signs Temperature 98.3 F 09/04/19 20:23 Pulse Rate 61 09/04/19 20:23 Respiratory Rate 16 09/04/19 21:00 Blood Pressure 107/77 09/04/19 20:23 O2 Sat by Pulse Oximetry (%) 98 09/03/19 09:00 Constitutional: Yes: No Distress Eyes: Yes: EOM Intact HENT: Yes: Normocephalic Neck: Yes: Trachea Midline Cardiovascular: Yes: Regular Rate and Rhythm Respiratory: Yes: CTA Bilaterally Gastrointestinal: Yes: Normal Bowel Sounds ...Rectal Exam: Yes: Deferred Renal/: Yes: WNL Breast(s): Yes: WNL Musculoskeletal: Yes: Muscle Weakness Edema: No Neurological: Yes: Alert, Confusion, Weakness Labs: CBC, BMP 09/04/19 08:10 09/04/19 14:30 Problem List - Problems (1) KIKI (acute kidney injury) Code(s): N17.9 - ACUTE KIDNEY FAILURE, UNSPECIFIED (2) Acute renal failure Code(s): N17.9 - ACUTE KIDNEY FAILURE, UNSPECIFIED (3) Altered mental status Code(s): R41.82 - ALTERED MENTAL STATUS, UNSPECIFIED Qualifiers: Altered mental status type: somnolence Qualified Code(s): R40.0 - Somnolence (4) Community acquired pneumonia Code(s): J18.9 - PNEUMONIA, UNSPECIFIED ORGANISM (5) Dehydration Code(s): E86.0 - DEHYDRATION (6) Hyperglycemia Code(s): R73.9 - HYPERGLYCEMIA, UNSPECIFIED Assessment/Plan Current Active Problems dm uncontrolled KIKI (acute kidney injury) (Acute) nkhos Obesity (BMI 30-39.9) (Chronic) Laboratory Tests 09/04/19 08:10 Hemoglobin A1c % 12.6 H Abnormal Lab Results 09/04/19 09/04/19 09/04/19 08:10 08:10 08:10 RBC 3.99 L Hct 35.1 L Plt Count 131 L Sodium 150 H Chloride 115 H Anion Gap 3 L BUN 18.2 H Random Glucose 165 H Hemoglobin A1c % 12.6 H Calcium 09/04/19 14:30 RBC Hct Plt Count Sodium 147 H Chloride 113 H Anion Gap 6 L BUN 20.2 H Random Glucose 299 H Hemoglobin A1c % Calcium 8.4 L plan: bgm acmeals levemir dose titrate 15 units bid swallowing evaluation recommendation
[2019-09-05] MEDS: SODIUM CHLORIDE 0.45% 1,000 ML IV SCH ×3 (04:51→15:31)
[2019-09-05] MEDS: INSULIN SLIDING SCALE (NOVOLOG) 1 VIAL SQ SCH ×4 (06:27→21:50)
[2019-09-05] MEDS: HEPARIN NA (PORCINE) 5,000 UNITS/ML 1ML VIAL SQ SCH ×3 (06:54→21:43)
[2019-09-05] MEDS: INSULIN (LEVEMIR) 100 UNITS/ML UNITS SQ SCH ×2 (06:55→21:52)
[2019-09-05 07:05] LABS: HEMATOCRIT 34.2 % (35.4-49); HEMOGLOBIN 11.4 GM/dL (11.7-16.9); MCH 29.3 pg (25.7-33.7); MCHC 33.2 g/dl (32.0-35.9); MEAN CELL VOLUME 88.4 fl (80-96); MEAN PLT VOLUME 9.4 fl (7.5-11.1); PLATELET COUNT 122 K/MM3 (134-434); RBC 3.87 M/mm3 (4.00-5.60); RDW 13.8 % (11.9-15.9)
[2019-09-05 07:33] LABS: BLOOD UREA NITROGEN 16.1 mg/dL (7-18); CALCIUM 8.4 mg/dL (8.5-10.1); MAGNESIUM 2.4 mg/dL (1.8-2.4); POTASSIUM 4.3 mmol/L (3.5-5.1)
[2019-09-05] MEDS: TAMSULOSIN HCL 0.4 MG CAP PO SCH (10:39)
[2019-09-05] MEDS: CLOPIDOGREL BISULFATE 75 MG TABLET (FP) PO SCH (10:39)
[2019-09-05] MEDS: ESCITALOPRAM OXALATE 10 MG TABLET (FP) PO SCH (10:39)
[2019-09-05] MEDS: DONEPEZIL HCL 5 MG TABLET (FP) PO SCH (10:40)
--- NOTE | 2019-09-05 13:32 | CON.ID ---
Consult Consult Specialty:: infectious diseases Referred by:: Reason for Consultation:: ams,lethargy uti - History of Present Illness Chief Complaint: fevers,ams History of Present Illness: 79 y/o/m with PMHx of IDDM, CAD s/p CABG, [place] in 1997, CHF, CKD, COPD, dementia admitted for altered mental status BIB EMS from home. patients in the room who is providing history . Patient complained of abdominal pain as per family. blood sugars were not under control patient was brought here and worked up and found to have uti with multiple organism patient was given iv vanco. 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 Cardio/Vascular: Yes: CAD, HTN, Hyperlipdemia Pulmonary: Yes: Asthma, COPD Renal/: Yes: Renal Inusuff - Past Surgical History Past Surgical History: Yes: CABG, Joint Replacement (R hip ORIF) - Alcohol/Substance Use Hx Alcohol Use: No - Smoking History Smoking history: Former smoker Have you smoked in the past 12 months: No Aproximately how many cigarettes per day: 0 If you are a former smoker, when did you quit?: '96 - Social History Usual Living Arrangement: With Spouse ADL: Family Assistance History of Recent Travel: No Home Medications - Allergies Allergies/Adverse Reactions: Allergies Allergy/AdvReac Type Severity Reaction Status Date / Time No Known Allergies Allergy Verified 01/11/19 11:57 - Home Medications Home Medications: Ambulatory Orders Atorvastatin Ca [Lipitor] 40 mg PO DAILY 05/06/19 Clopidogrel Bisulfate [Plavix] 75 mg PO DAILY 05/06/19 Ezetimibe 10 mg PO HS 05/06/19 Furosemide 20 mg PO DAILY 05/06/19 Insulin Degludec [Tresiba] 6 unit SQ HS 05/06/19 Insulin Pump [Insulin Pump - (Nf)] 1 each NR DAILY 05/06/19 Nebivolol HCl [Bystolic] 2.5 mg PO HS 05/06/19 Tamsulosin HCl 0.4 mg PO DAILY 05/06/19 Review of Systems - Review of Systems Constitutional: reports: No Symptoms Eyes: reports: No Symptoms HENT: reports: No Symptoms Neck: reports: No Symptoms Cardiovascular: reports: No Symptoms Respiratory: reports: No Symptoms Gastrointestinal: reports: No Symptoms Genitourinary: reports: No Symptoms Musculoskeletal: reports: No Symptoms Integumentary: reports: No Symptoms Neurological: reports: Other (ams) Endocrine: reports: No Symptoms Hematology/Lymphatic: reports: No Symptoms Psychiatric: reports: No Symptoms Physical Exam Vital Signs: Vital Signs Temperature 97.9 F 09/05/19 10:00 Pulse Rate 74 09/05/19 10:00 Respiratory Rate 18 09/05/19 10:00 Blood Pressure 161/80 09/05/19 10:00 O2 Sat by Pulse Oximetry (%) 98 09/03/19 09:00 Constitutional: Yes: No Distress, Calm Eyes: Yes: Other (legally blind) Cardiovascular: Yes: Regular Rate and Rhythm Respiratory: Yes: Regular, CTA Bilaterally Gastrointestinal: Yes: Normal Bowel Sounds, Soft Musculoskeletal: Yes: WNL Extremities: Yes: WNL Neurological: Yes: Alert Psychiatric: Yes: Alert Labs: CBC, BMP 09/05/19 06:15 09/05/19 06:15 Imaging - Results Chest X-ray: Report Reviewed, Image Reviewed Cat Scan: Report Reviewed, Image Reviewed Ultrasound: Report Reviewed, Image Reviewed Assessment/Plan 79 year old man with a history of HTN, hyperlipidemia, CAD, [place], CABG, chronic diastolic heart failure, type 2 DM, stage 3 CKD, COPD, dementia who presented to the ED with altered mental status. 1. Acute metabolic encephalopathy 2. Acute kidney injury 3. Abdominal pain 4. UTI 5. Lactic acidosis 6. Hypernatremia 7. Hypophosphatemia 8. HTN 9. Hyperlipidemia 10. CAD, history of [place], CABG 11. Chronic diastolic heart failure 12. Stage 3 CKD 13. COPD 14. Alzheimer dementia plan will start patient on doxy monitor rest as per the team
--- NOTE | 2019-09-05 14:16 | PN ---
Progress Note (short form) - Note Progress Note: HPI: Limited due to patients clinical condition. Pt remains with incoherent speech and relative altered mentation. Discussed with son today after updating about clinical status. He is in agreement to SNF once cleared medically. Vital Signs Temperature 97.9 F 09/05/19 10:00 Pulse Rate 74 09/05/19 10:00 Respiratory Rate 18 09/05/19 10:00 Blood Pressure 161/80 09/05/19 10:00 O2 Sat by Pulse Oximetry (%) 98 09/03/19 09:00 PE: Gen: NAD, nonverbal, contracted, oriented to self HEENT: NC/AT, opacification of R eye, sclera anicteric, MMM Neck: No JVD Lungs: CTA b/l no wheezes or rales CARD: RRR no murmurs ABD: No facial grimmacing to palpation, soft, nondistended, no guarding EXT: no edema CBC, BMP 09/05/19 06:15 09/05/19 06:15 Active Medications Acetaminophen (Tylenol -) 650 mg PO Q4H PRN PRN Reason: FEVER Last Admin: 09/04/19 12:31 Dose: 650 mg Atorvastatin Calcium (Lipitor -) 40 mg PO HS [facility] Last Admin: 09/04/19 22:05 Dose: 40 mg Clopidogrel Bisulfate (Plavix -) 75 mg PO DAILY [facility] Last Admin: 09/05/19 10:39 Dose: 75 mg Donepezil HCl (Aricept -) 5 mg PO DAILY [facility] Last Admin: 09/05/19 10:40 Dose: 5 mg Doxycycline Hyclate (Vibramycin -) 100 mg PO BID@1000,1800 [facility] Ezetimibe (Zetia -) 10 mg PO HS [facility] Last Admin: 09/04/19 22:04 Dose: 10 mg Escitalopram Oxalate (Lexapro -) 10 mg PO DAILY [facility] Stop: 09/09/19 18:11 Last Admin: 09/05/19 10:39 Dose: 10 mg Heparin Sodium (Porcine) (Heparin -) 5,000 unit SQ TID [facility] Last Admin: 09/05/19 06:54 Dose: 5,000 unit Sodium Chloride (1/2 Normal Saline) 1,000 mls @ 83 mls/hr IV ASDIR [facility] Last Admin: 09/05/19 10:40 Dose: Not Given Insulin Aspart (Novolog Vial Sliding Scale -) 1 vial SQ [facility]; Protocol Last Admin: 09/05/19 12:25 Dose: 8 units Insulin Detemir (Levemir Vial) 15 units SQ BID@0700,2200 [facility] Last Admin: 09/05/19 06:55 Dose: 15 units Nebivolol (Bystolic -) 2.5 mg PO HS [facility] Last Admin: 09/04/19 22:05 Dose: 2.5 mg Nystatin (Nystop Powder -) 1 applic TP BID [facility] Tamsulosin HCl (Flomax -) 0.4 mg PO DAILY@0830 [facility] Last Admin: 09/05/19 10:39 Dose: 0.4 mg Microbiology 09/01/19 21:16 Urine - Urine Arguello Urine Culture - Final Strep Agalactiae Group B Mr S Aureus Staphylococcus Coagulase Neg 09/01/19 23:00 Blood - Peripheral Venous Blood Culture - Preliminary NO GROWTH OBTAINED AFTER 72 HOURS, INCUBATION TO CONTINUE FOR 2 DAYS. 09/01/19 23:00 Blood - Peripheral Venous Blood Culture - Preliminary NO GROWTH OBTAINED AFTER 72 HOURS, INCUBATION TO CONTINUE FOR 2 DAYS. A/P MRSA UTI Hyperosmolar hyperglycemia state (resolving) Acute kidney insufficiency (resolved) Uncontrolled diabetes Acute metabolic encephalopathy; r/o NPH Urinary retention possibly 2/2 to BPH Dementia --Appreciated all consulting recommendations --Continue Levemir 15U BID with BGM ACHS and ISS --Discussed with son about discontinuing insulin pump and using above protocol due to controlled glucose levels --Doxycycline on board for UTI --Continue 1/2NS as pt's FWD remains yet improving --Continue Lexapro 10mg qdaily and Aricept 5mg --Continue home medications as below: Bystolic 2.5mg HS Flomax 0.4mg qdaily Ezetimibe 10mg HS Plavix 75mg qdaily Lipitor 40mg HS --Added nystatin powder to be applied to pt's groin --Pt did not void after arguello discontinued previous; arguelol insertion today yielding 350cc of urine --Recommend follow-up with urology FEN: Fluids: 1/2NS@83cc/hr; can d/c tomorrow Electrolyte abnormalities: HyperNa and HyperCl (resovling) Nutrition: dysphagia chopped and nutritional supplementation PPX: DVT - Heparin SQ TID Dispo: Awaiting SNF Auth Case discussed with Dr. Joey Grubbs, DO - IM PGY-3 <Stevie Grubbs - Last Filed: 09/05/19 14:08> - Note Progress Note: Seen and examined; I agree with above aside from as documented by myself. Overall remains stable and without profound difficulties noted and clinical improvement. ID consult noted and discussed with consulting services. 10 sys unable to be completed secondary to underlying clinical condition VS, labs, imaging reviewed NAD, AAO, resting in bed RRR s1/2 NC AT EOMI PERRLA NT ND +BS CN2-12 wnl, no fnd Community Acquired MRSA UTI Hyperosmolar hyperglycemia state (resolving) Acute kidney insufficiency (resolved) Uncontrolled diabetes Acute metabolic encephalopathy; r/o NPH Urinary retention possibly 2/2 to BPH Dementia Completed course PO doxy, monitor renal function, planning for DC <Hernesto Cook - Last Filed: 09/07/19 10:20>
[2019-09-05] MEDS ORDERED: PT OWN MED DRAWER 7, Y5N ONE ×2 (14:32→17:58)
[2019-09-05] MEDS: NYSTATIN POWDER 100,000 UNITS/GM - 15 GM TOPICAL POWDER TP SCH ×2 (15:06→21:53)
[2019-09-05] MEDS: DOXYCYCLINE HYCLATE 100 MG CAPSULE PO SCH (17:26)
--- NOTE | 2019-09-05 17:39 | PN ---
Progress Note, Physician History of Present Illness: events noted Chart reviewed Alert Awake Feels better Speech still same Right eye droopy the same - Current Medication List Current Medications: Active Medications Acetaminophen (Tylenol -) 650 mg PO Q4H PRN PRN Reason: FEVER Last Admin: 09/04/19 12:31 Dose: 650 mg Atorvastatin Calcium (Lipitor -) 40 mg PO HS [facility] Last Admin: 09/04/19 22:05 Dose: 40 mg Clopidogrel Bisulfate (Plavix -) 75 mg PO DAILY [facility] Last Admin: 09/05/19 10:39 Dose: 75 mg Donepezil HCl (Aricept -) 5 mg PO DAILY [facility] Last Admin: 09/05/19 10:40 Dose: 5 mg Doxycycline Hyclate (Vibramycin -) 100 mg PO BID@1000,1800 [facility] Last Admin: 09/05/19 17:26 Dose: 100 mg Ezetimibe (Zetia -) 10 mg PO HS [facility] Last Admin: 09/04/19 22:04 Dose: 10 mg Escitalopram Oxalate (Lexapro -) 10 mg PO DAILY [facility] Stop: 09/09/19 18:11 Last Admin: 09/05/19 10:39 Dose: 10 mg Heparin Sodium (Porcine) (Heparin -) 5,000 unit SQ TID [facility] Last Admin: 09/05/19 15:06 Dose: 5,000 unit Sodium Chloride (1/2 Normal Saline) 1,000 mls @ 83 mls/hr IV ASDIR [facility] Last Admin: 09/05/19 15:31 Dose: 83 mls/hr Insulin Aspart (Novolog Vial Sliding Scale -) 1 vial SQ [facility]; Protocol Last Admin: 09/05/19 17:26 Dose: 4 units Insulin Detemir (Levemir Vial) 15 units SQ BID@0700,2200 [facility] Last Admin: 09/05/19 06:55 Dose: 15 units Nebivolol (Bystolic -) 2.5 mg PO HS [facility] Last Admin: 09/04/19 22:05 Dose: 2.5 mg Nystatin (Nystop Powder -) 1 applic TP BID [facility] Last Admin: 09/05/19 15:06 Dose: 1 applic Tamsulosin HCl (Flomax -) 0.4 mg PO DAILY@0830 [facility] Last Admin: 09/05/19 10:39 Dose: 0.4 mg - Objective Vital Signs: Vital Signs Temperature 98.9 F 10/10/19 14:42 Pulse Rate 74 09/05/19 14:42 Respiratory Rate 20 09/05/19 14:42 Blood Pressure 135/63 09/05/19 14:42 O2 Sat by Pulse Oximetry (%) 98 09/03/19 09:00 Constitutional: Yes: Well Nourished Eyes: Yes: WNL Neurological: Yes: Alert, Oriented, Babinski negative ...Motor Strength: WNL Labs: CBC, BMP 09/05/19 06:15 09/05/19 06:15 INR, PTT INR 1.15 (0.83-1.09) H 09/01/19 21:00 Problem List - Problems (1) Altered mental status Assessment/Plan: 1. Continue crow Lexapro 2. Fall precautions 3. SNF 4. Tight BSL control Code(s): R41.82 - ALTERED MENTAL STATUS, UNSPECIFIED Qualifiers: Altered mental status type: somnolence Qualified Code(s): R40.0 - Somnolence
--- NOTE | 2019-09-05 17:49 | PN ---
Progress Note, Physician History of Present Illness: Pt seen and examined at bedside. He is awake and appears comfortable. - Current Medication List Current Medications: Active Medications Acetaminophen (Tylenol -) 650 mg PO Q4H PRN PRN Reason: FEVER Last Admin: 09/04/19 12:31 Dose: 650 mg Atorvastatin Calcium (Lipitor -) 40 mg PO HS [facility] Last Admin: 09/04/19 22:05 Dose: 40 mg Clopidogrel Bisulfate (Plavix -) 75 mg PO DAILY [facility] Last Admin: 09/05/19 10:39 Dose: 75 mg Donepezil HCl (Aricept -) 5 mg PO DAILY [facility] Last Admin: 09/05/19 10:40 Dose: 5 mg Doxycycline Hyclate (Vibramycin -) 100 mg PO BID@1000,1800 [facility] Last Admin: 09/05/19 17:26 Dose: 100 mg Ezetimibe (Zetia -) 10 mg PO HS [facility] Last Admin: 09/04/19 22:04 Dose: 10 mg Escitalopram Oxalate (Lexapro -) 10 mg PO DAILY [facility] Stop: 09/09/19 18:11 Last Admin: 09/05/19 10:39 Dose: 10 mg Heparin Sodium (Porcine) (Heparin -) 5,000 unit SQ TID [facility] Last Admin: 09/05/19 15:06 Dose: 5,000 unit Sodium Chloride (1/2 Normal Saline) 1,000 mls @ 83 mls/hr IV ASDIR [facility] Last Admin: 09/05/19 15:31 Dose: 83 mls/hr Insulin Aspart (Novolog Vial Sliding Scale -) 1 vial SQ ACHS [facility]; Protocol Last Admin: 09/05/19 17:26 Dose: 4 units Insulin Detemir (Levemir Vial) 15 units SQ BID@0700,2200 [facility] Last Admin: 09/05/19 06:55 Dose: 15 units Nebivolol (Bystolic -) 2.5 mg PO HS [facility] Last Admin: 09/04/19 22:05 Dose: 2.5 mg Nystatin (Nystop Powder -) 1 applic TP BID [facility] Last Admin: 09/05/19 15:06 Dose: 1 applic Tamsulosin HCl (Flomax -) 0.4 mg PO DAILY@0830 [facility] Last Admin: 09/05/19 10:39 Dose: 0.4 mg - Objective Vital Signs: Vital Signs Temperature 98.9 F 09/05/19 14:42 Pulse Rate 74 09/05/19 14:42 Respiratory Rate 20 09/05/19 14:42 Blood Pressure 135/63 09/05/19 14:42 O2 Sat by Pulse Oximetry (%) 98 09/03/19 09:00 Constitutional: Yes: Calm Eyes: Yes: Other (legaly blind) HENT: Yes: Atraumatic Neck: Yes: Supple Cardiovascular: Yes: S1, S2 Respiratory: Yes: CTA Bilaterally Gastrointestinal: Yes: Normal Bowel Sounds, Soft Genitourinary: Yes: Strong Present Musculoskeletal: Yes: Muscle Weakness Edema: No Neurological: Yes: Confusion Labs: CBC, BMP 09/05/19 06:15 09/05/19 06:15 INR, PTT INR 1.15 (0.83-1.09) H 09/01/19 21:00 Problem List - Problems (1) KIKI (acute kidney injury) Code(s): N17.9 - ACUTE KIDNEY FAILURE, UNSPECIFIED (2) DKA (diabetic ketoacidoses) Code(s): E11.10 - TYPE 2 DIABETES MELLITUS WITH KETOACIDOSIS WITHOUT COMA Qualifiers: Diabetes mellitus type: type 2 Diabetes mellitus complication detail: without coma Qualified Code(s): E11.10 - Type 2 diabetes mellitus with ketoacidosis without coma (3) Acute renal failure Code(s): N17.9 - ACUTE KIDNEY FAILURE, UNSPECIFIED (4) Hypernatremia Code(s): E87.0 - HYPEROSMOLALITY AND HYPERNATREMIA Assessment/Plan Current Medications Generic Name Dose Route Start Last Admin Trade Name Freq PRN Reason Stop Dose Admin Acetaminophen 650 mg 09/04/19 10:34 09/04/19 12:31 Tylenol - PO 650 mg Q4H PRN Administration FEVER Atorvastatin Calcium 40 mg 09/02/19 22:00 09/04/19 22:05 Lipitor - PO 40 mg HS DAISHA Administration Clopidogrel Bisulfate 75 mg 09/03/19 10:00 09/05/19 10:39 Plavix - PO 75 mg DAILY DA[facility]HA Administration Donepezil HCl 5 mg 09/04/19 10:00 09/05/19 10:40 Aricept - PO 5 mg DAILY [facility] Administration Doxycycline Hyclate 100 mg 09/05/19 18:00 09/05/19 17:26 Vibramycin - PO 100 mg BID@1000,1800 DAISHA Administration Ezetimibe 10 mg 09/02/19 22:00 09/04/19 22:04 Zetia - PO 10 mg HS DAISHA Administration Escitalopram Oxalate 10 mg 09/04/19 10:00 09/05/19 10:39 Lexapro - PO 09/09/19 18:11 10 mg DAILY DAISHA Administration Heparin Sodium (Porcine) 5,000 unit 09/02/19 22:00 09/05/19 15:06 Heparin - SQ 5,000 unit TID DAISHA Administration Sodium Chloride 1,000 mls @ 83 mls/hr 09/04/19 10:15 09/05/19 15:31 1/2 Normal Saline IV 83 mls/hr ASDIR DAISHA Administration Insulin Aspart 1 vial 09/05/19 00:52 09/05/19 17:26 Novolog Vial Sliding Scale - SQ 4 units ACHS DAISHA Administration Protocol Insulin Detemir 15 units 09/05/19 00:50 09/05/19 06:55 Levemir Vial SQ 15 units BID@0700,2200 [facility] Administration Nebivolol 2.5 mg 09/02/19 22:00 09/04/19 22:05 Bystolic - PO 2.5 mg HS [facility] Administration Nystatin 1 applic 09/05/19 11:30 09/05/19 15:06 Nystop Powder - TP 1 applic BID [facility] Administration Tamsulosin HCl 0.4 mg 09/03/19 08:30 09/05/19 10:39 Flomax - PO 0.4 mg DAILY@0830 [facility] Administration Impression 1. KIKI 2. DKA 3. hypernatremia 4. DM 5. dementia 6. cad Plan - cont fluids - sodium improving - did not tolerate voiding trial - monitor serum sodium - renal function is improved - KIKI likely secondary to dehydration from DKA
[2019-09-05] MEDS ORDERED: INSULIN (NOVOLOG) ASPART 100 UNITS/ML 10ML VIAL ONE (17:57)
[2019-09-05] MEDS: EZETIMIBE 10 MG TABLET (FP) PO SCH (21:42)
[2019-09-05] MEDS: NEBIVOLOL 2.5 MG TABLET (FP) PO SCH (21:42)
[2019-09-05] MEDS: ATORVASTATIN CA 40 MG TABLET (FP) PO SCH (21:43)
[2019-09-06] MEDS: HEPARIN NA (PORCINE) 5,000 UNITS/ML 1ML VIAL SQ SCH ×3 (05:41→22:07)
[2019-09-06] MEDS: INSULIN SLIDING SCALE (NOVOLOG) 1 VIAL SQ SCH ×4 (06:21→22:09)
[2019-09-06] MEDS: INSULIN (LEVEMIR) 100 UNITS/ML UNITS SQ SCH ×2 (06:21→22:06)
[2019-09-06 08:43] LABS: BLOOD UREA NITROGEN 11.4 mg/dL (7-18); CREATININE 0.9 mg/dL (0.55-1.3); POTASSIUM 4.1 mmol/L (3.5-5.1)
[2019-09-06] MEDS: CLOPIDOGREL BISULFATE 75 MG TABLET (FP) PO SCH (09:10)
[2019-09-06] MEDS: DOXYCYCLINE HYCLATE 100 MG CAPSULE PO SCH ×2 (09:10→18:15)
[2019-09-06] MEDS: ESCITALOPRAM OXALATE 10 MG TABLET (FP) PO SCH (09:10)
[2019-09-06] MEDS: TAMSULOSIN HCL 0.4 MG CAP PO SCH (09:10)
[2019-09-06] MEDS: NYSTATIN POWDER 100,000 UNITS/GM - 15 GM TOPICAL POWDER TP SCH ×2 (09:11→22:07)
[2019-09-06] MEDS: DONEPEZIL HCL 5 MG TABLET (FP) PO SCH (09:11)
--- NOTE | 2019-09-06 12:08 | PN ---
Progress Note, Physician History of Present Illness: stable no new issues - Current Medication List Current Medications: Active Medications Acetaminophen (Tylenol -) 650 mg PO Q4H PRN PRN Reason: FEVER Last Admin: 09/04/19 12:31 Dose: 650 mg Atorvastatin Calcium (Lipitor -) 40 mg PO [facility] Last Admin: 09/05/19 21:43 Dose: 40 mg Clopidogrel Bisulfate (Plavix -) 75 mg PO DAILY [facility] Last Admin: 09/06/19 09:10 Dose: 75 mg Donepezil HCl (Aricept -) 5 mg PO DAILY [facility] Last Admin: 09/06/19 09:11 Dose: 5 mg Doxycycline Hyclate (Vibramycin -) 100 mg PO BID@1000,1800 [facility] Last Admin: 09/06/19 09:10 Dose: 100 mg Ezetimibe (Zetia -) 10 mg PO [facility] Last Admin: 09/05/19 21:42 Dose: 10 mg Escitalopram Oxalate (Lexapro -) 10 mg PO DAILY [facility] Stop: 09/09/19 18:11 Last Admin: 09/06/19 09:10 Dose: 10 mg Heparin Sodium (Porcine) (Heparin -) 5,000 unit SQ TID [facility] Last Admin: 09/06/19 05:41 Dose: 5,000 unit Insulin Aspart (Novolog Vial Sliding Scale -) 1 vial SQ [facility]; Protocol Last Admin: 09/06/19 11:48 Dose: 4 units Insulin Detemir (Levemir Vial) 15 units SQ BID@0700,2200 [facility] Last Admin: 09/06/19 06:21 Dose: 15 units Nebivolol (Bystolic -) 2.5 mg PO [facility] Last Admin: 09/05/19 21:42 Dose: 2.5 mg Nystatin (Nystop Powder -) 1 applic TP BID [facility] Last Admin: 09/06/19 09:11 Dose: 1 applic Tamsulosin HCl (Flomax -) 0.4 mg PO DAILY@0830 [facility] Last Admin: 09/06/19 09:10 Dose: 0.4 mg - Objective Vital Signs: Vital Signs Temperature 98.3 F 09/06/19 09:12 Pulse Rate 78 09/06/19 09:12 Respiratory Rate 20 09/06/19 09:12 Blood Pressure 120/54 L 09/06/19 09:12 O2 Sat by Pulse Oximetry (%) 98 09/03/19 09:00 Constitutional: Yes: No Distress, Calm Eyes: Yes: Other (legally blind) Cardiovascular: Yes: S1, S2 Respiratory: Yes: Regular, CTA Bilaterally Gastrointestinal: Yes: Normal Bowel Sounds, Soft Musculoskeletal: Yes: WNL Extremities: Yes: WNL Labs: CBC, BMP 09/05/19 06:15 09/06/19 07:25 INR, PTT INR 1.15 (0.83-1.09) H 09/01/19 21:00 Assessment/Plan 79 year old man with a history of HTN, hyperlipidemia, CAD, KS, CABG, chronic diastolic heart failure, type 2 DM, stage 3 CKD, COPD, dementia who presented to the ED with altered mental status. 1. Acute metabolic encephalopathy 2. Acute kidney injury 3. Abdominal pain 4. UTI 5. Lactic acidosis 6. Hypernatremia 7. Hypophosphatemia 8. HTN 9. Hyperlipidemia 10. CAD, history of KS, CABG 11. Chronic diastolic heart failure 12. Stage 3 CKD 13. COPD 14. Alzheimer dementia plan continue current mgmt monitor rest as per the team
--- NOTE | 2019-09-06 14:24 | DS ---
Physical Exam: SUBJECTIVE: Limited due to patients clinical condition. Pt remains with incoherent speech and relative altered mentation. Discussed with son today about discharge arrangement. He is in agreement to SNF and prefers [facility] if able to. OBJECTIVE: Vital Signs Period Temp Pulse Resp BP Sys/Poole Pulse Ox Last 24 Hr 97.9 F-98.9 F 71-88 18-20 114-135/51-75 PHYSICAL EXAM Gen: NAD, nonverbal, contracted, oriented to self HEENT: NC/AT, opacification of R eye, sclera anicteric, MMM Neck: No JVD Lungs: CTA b/l no wheezes or rales CARD: RRR no murmurs ABD: No facial grimmacing to palpation, soft, nondistended, no guarding EXT: no edema LABS Laboratory Results - last 24 hr 09/05/19 09/05/19 09/06/19 16:30 21:48 05:46 Sodium Potassium Chloride Carbon Dioxide Anion Gap BUN Creatinine Est GFR (CKD-EPI)AfAm Est GFR (CKD-EPI)NonAf POC Glucometer 207 150 236 Random Glucose Calcium 09/06/19 09/06/19 07:25 11:47 Sodium 140 Potassium 4.1 Chloride 108 H Carbon Dioxide 27 Anion Gap 5 L BUN 11.4 Creatinine 0.9 Est GFR (CKD-EPI)AfAm 93.82 Est GFR (CKD-EPI)NonAf 80.95 POC Glucometer 237 Random Glucose 226 H Calcium 8.0 L Microbiology 09/01/19 23:00 Blood - Peripheral Venous Blood Culture - Preliminary NO GROWTH OBTAINED AFTER 96 HOURS, INCUBATION TO CONTINUE FOR 1 DAYS. 09/01/19 23:00 Blood - Peripheral Venous Blood Culture - Preliminary NO GROWTH OBTAINED AFTER 96 HOURS, INCUBATION TO CONTINUE FOR 1 DAYS. 09/01/19 21:16 Urine - Urine Arguello Urine Culture - Final Strep Agalactiae Group B Mr S Aureus Staphylococcus Coagulase Neg Active Medications Acetaminophen (Tylenol -) 650 mg PO Q4H PRN PRN Reason: FEVER Last Admin: 09/04/19 12:31 Dose: 650 mg Atorvastatin Calcium (Lipitor -) 40 mg PO HS DAISHA Last Admin: 09/05/19 21:43 Dose: 40 mg Clopidogrel Bisulfate (Plavix -) 75 mg PO DAILY DAISHA Last Admin: 09/06/19 09:10 Dose: 75 mg Donepezil HCl (Aricept -) 5 mg PO DAILY [facility] Last Admin: 09/06/19 09:11 Dose: 5 mg Doxycycline Hyclate (Vibramycin -) 100 mg PO BID@1000,1800 [facility] Last Admin: 09/06/19 18:15 Dose: 100 mg Ezetimibe (Zetia -) 10 mg PO HS [facility] Last Admin: 09/05/19 21:42 Dose: 10 mg Escitalopram Oxalate (Lexapro -) 10 mg PO DAILY [facility] Stop: 09/09/19 18:11 Last Admin: 09/06/19 09:10 Dose: 10 mg Heparin Sodium (Porcine) (Heparin -) 5,000 unit SQ TID [facility] Last Admin: 09/06/19 13:47 Dose: 5,000 unit Insulin Aspart (Novolog Vial Sliding Scale -) 1 vial SQ ACHS [facility]; Protocol Last Admin: 09/06/19 18:15 Dose: 10 units Insulin Detemir (Levemir Vial) 15 units SQ BID@0700,2200 [facility] Last Admin: 09/06/19 06:21 Dose: 15 units Nebivolol (Bystolic -) 2.5 mg PO HS [facility] Last Admin: 09/05/19 21:42 Dose: 2.5 mg Nystatin (Nystop Powder -) 1 applic TP BID [facility] Last Admin: 09/06/19 09:11 Dose: 1 applic Tamsulosin HCl (Flomax -) 0.4 mg PO DAILY@0830 [facility] Last Admin: 09/06/19 09:10 Dose: 0.4 mg IMAGING: ABD U/S: IMPRESSION: Limited examination likely due to the patient's body habitus. The liver appears to be slightly hyperechoic suggestive of mild fatty infiltration versus hepatocellular disease. No gross gallstones identified. Borderline thickening of the gallbladder wall without evidence of acute cholecystitis. Nonvisualization of the pancreas. Nonvisualization of the abdominal aorta and inferior vena cava. Right renal simple cyst measuring 2.1 cm. Abd/Pelvis CT: IMPRESSION: Constipation. Mild fullness of the collecting system with a dilated bladder which could represent reflux. Paraumbilical hernia with no stranding. Hiatal hernia seen previously. Renal cysts. Head CT: IMPRESSION: No significant interval change Moderate to marked ventricular dilatation with a lateral and third ventricles are relatively more dilated than for. Degree of the ventricular dilatation is more than expected for the degree of cortical atrophy. 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 Otherwise, no interval acute intracranial pathology is identified. A preliminary report was forwarded by the [facility] branch service, HOSPITAL COURSE: Date of Admission:09/01/19 Date of Discharge: 09/06/19 Pt admitted to hospital on 09/01/19 due to HHS. Pt was placed on insulin gtt and HHS protocol until which he was able to transition to the floor alongside of subcutaneously insulin. Pt was seen by endocrinology with final insulin regiment being Levemir 15U BID, Novolog 2U before Lunch and dinner, alongside of ISS for further coverage if needed. During patient's workup he was found to have MRSA UTI which is being treated with Doxycycline 100mg BID for a total of 5 days. Unfortunately patient was given trial of void period where he did not void for 24hrs. Arguello was placed, tamsulosin was increased to 0.4mg BID and he is to follow-up with urology on the outpatient setting for ToV and BPH recommendations. In addition, pt was found to have physical therapy care needs and it was recommended for patient to be discharged to SNF for further rehab. Pt's family has been instructed to discontinue use of insulin pump as patient may be noncompliant with accurate carbohydrate counting and proper insulin injection. Minutes to complete discharge: 35 <Stevie Grubbs - Last Filed: 09/06/19 21:19> Physical Exam: SUBJECTIVE: Patient seen and examined OBJECTIVE: Vital Signs Period Temp Pulse Resp BP Sys/Poole Pulse Ox Last 24 Hr 98.0 F-98.8 F 69-76 16-20 108-149/63-82 PHYSICAL EXAM GENERAL: The patient is awake, alert, and fully oriented, in no acute distress. HEAD: Normal with no signs of trauma. EYES: PERRL, extraocular movements intact, sclera anicteric, conjunctiva clear. ENT: Ears normal, nares patent, oropharynx clear without exudates, moist mucous membranes. NECK: Trachea midline, full range of motion, supple. LUNGS: Breath sounds equal, clear to auscultation bilaterally, no wheezes, no crackles, no accessory muscle use. HEART: Regular rate and rhythm, S1, S2 without murmur, rub or gallop. ABDOMEN: Soft, nontender, nondistended, normoactive bowel sounds, no guarding, no rebound, no hepatosplenomegaly, no masses. EXTREMITIES: 2+ pulses, warm, well-perfused, no edema. NEUROLOGICAL: Cranial nerves II through XII grossly intact. Normal speech, gait not observed. PSYCH: Normal mood, normal affect. SKIN: Warm, dry, normal turgor, no rashes or lesions noted. LABS Laboratory Results - last 24 hr 09/01/19 09/01/19 09/01/19 20:43 21:00 21:00 WBC 18.0 H RBC 4.69 Hgb 13.5 Hct 42.1 D MCV 89.8 MCH 28.9 MCHC 32.1 RDW 13.7 Plt Count 191 D MPV 10.3 Absolute Neuts (auto) 15.3 H Neutrophils % 84.6 H D Lymphocytes % 5.4 L D Monocytes % 9.3 Eosinophils % 0.1 D Basophils % 0.6 Nucleated RBC % 0 PT with INR INR Puncture Site ABG pH ABG pCO2 at Pt Temp ABG pO2 at Pt Temp ABG HCO3 ABG O2 Sat (Measured) ABG O2 Content ABG Base Excess Manuel Test Carboxyhemoglobin Methemoglobin O2 Delivery Device Oxygen Flow Rate Sodium 131 L Potassium 5.6 H Chloride 91 L Carbon Dioxide 24 Anion Gap 16 BUN 56.2 H Creatinine 2.5 H Est GFR (CKD-EPI)AfAm 27.28 Est GFR (CKD-EPI)NonAf 23.54 POC Glucometer > 600 Random Glucose 916 H* Lactic Acid Calcium 9.6 Phosphorus Magnesium Total Bilirubin 0.5 AST 13 L ALT 17 Alkaline Phosphatase 248 H Troponin I 0.05 Total Protein 7.6 Albumin 3.3 L Lipase 114 Urine Color Urine Appearance Urine pH Ur Specific Sandy Urine Protein Urine Glucose (UA) Urine Ketones Urine Blood Urine Nitrite Urine Bilirubin Urine Urobilinogen Ur Leukocyte Esterase Urine WBC (Auto) Urine RBC (Auto) U Epithel Cells (Auto) Urine Bacteria (Auto) Acetone, Qual Positive small 1+ 09/01/19 09/01/19 09/01/19 21:00 21:00 21:16 WBC RBC Hgb Hct MCV MCH MCHC RDW Plt Count MPV Absolute Neuts (auto) Neutrophils % Lymphocytes % Monocytes % Eosinophils % Basophils % Nucleated RBC % PT with INR 13.60 H INR 1.15 H Puncture Site ABG pH ABG pCO2 at Pt Temp ABG pO2 at Pt Temp ABG HCO3 ABG O2 Sat (Measured) ABG O2 Content ABG Base Excess Manuel Test Carboxyhemoglobin Methemoglobin O2 Delivery Device Oxygen Flow Rate Sodium Potassium Chloride Carbon Dioxide Anion Gap BUN Creatinine Est GFR (CKD-EPI)AfAm Est GFR (CKD-EPI)NonAf POC Glucometer Random Glucose Lactic Acid 2.1 H Calcium Phosphorus Magnesium Total Bilirubin AST ALT Alkaline Phosphatase Troponin I Total Protein Albumin Lipase Urine Color Yellow Urine Appearance Clear Urine pH 5.5 Ur Specific Sandy <= 1.005 L Urine Protein Negative Urine Glucose (UA) 3+ H Urine Ketones 2+ H Urine Blood Trace-intact Urine Nitrite Negative Urine Bilirubin Negative Urine Urobilinogen 0.2 Ur Leukocyte Esterase 1+ H Urine WBC (Auto) 30-50 Urine RBC (Auto) 0-4 U Epithel Cells (Auto) 0-5 Urine Bacteria (Auto) Moderate Acetone, Qual 09/01/19 09/02/19 09/02/19 23:00 00:45 01:30 WBC RBC Hgb Hct MCV MCH MCHC RDW Plt Count MPV Absolute Neuts (auto) Neutrophils % Lymphocytes % Monocytes % Eosinophils % Basophils % Nucleated RBC % PT with INR INR Puncture Site Right radial ABG pH 7.42 ABG pCO2 at Pt Temp 38.6 ABG pO2 at Pt Temp 84.6 ABG HCO3 24.4 ABG O2 Sat (Measured) 96.8 ABG O2 Content 16.3 ABG Base Excess 0.5 Manuel Test Positive Carboxyhemoglobin 2.2 H Methemoglobin < 1.0 O2 Delivery Device Room air Oxygen Flow Rate 21% Sodium 137 Potassium 4.8 Chloride 98 Carbon Dioxide 24 Anion Gap 14 BUN 57.2 H Creatinine 2.3 H Est GFR (CKD-EPI)AfAm 30.17 Est GFR (CKD-EPI)NonAf 26.04 POC Glucometer 485 Random Glucose 744 H* Lactic Acid Calcium 9.5 Phosphorus 3.2 Magnesium 3.1 H Total Bilirubin AST ALT Alkaline Phosphatase Troponin I Total Protein Albumin Lipase Urine Color Urine Appearance Urine pH Ur Specific Sandy Urine Protein Urine Glucose (UA) Urine Ketones Urine Blood Urine Nitrite Urine Bilirubin Urine Urobilinogen Ur Leukocyte Esterase Urine WBC (Auto) Urine RBC (Auto) U Epithel Cells (Auto) Urine Bacteria (Auto) Acetone, Qual 09/02/19 09/02/19 09/02/19 02:33 03:48 04:37 WBC RBC Hgb Hct MCV MCH MCHC RDW Plt Count MPV Absolute Neuts (auto) Neutrophils % Lymphocytes % Monocytes % Eosinophils % Basophils % Nucleated RBC % PT with INR INR Puncture Site ABG pH ABG pCO2 at Pt Temp ABG pO2 at Pt Temp ABG HCO3 ABG O2 Sat (Measured) ABG O2 Content ABG Base Excess Manuel Test Carboxyhemoglobin Methemoglobin O2 Delivery Device Oxygen Flow Rate Sodium Potassium Chloride Carbon Dioxide Anion Gap BUN Creatinine Est GFR (CKD-EPI)AfAm Est GFR (CKD-EPI)NonAf POC Glucometer 363 252 205 Random Glucose Lactic Acid Calcium Phosphorus Magnesium Total Bilirubin AST ALT Alkaline Phosphatase Troponin I Total Protein Albumin Lipase Urine Color Urine Appearance Urine pH Ur Specific Sandy Urine Protein Urine Glucose (UA) Urine Ketones Urine Blood Urine Nitrite Urine Bilirubin Urine Urobilinogen Ur Leukocyte Esterase Urine WBC (Auto) Urine RBC (Auto) U Epithel Cells (Auto) Urine Bacteria (Auto) Acetone, Qual 09/02/19 09/02/19 09/02/19 05:38 06:26 10:57 WBC RBC Hgb Hct MCV MCH MCHC RDW Plt Count MPV Absolute Neuts (auto) Neutrophils % Lymphocytes % Monocytes % Eosinophils % Basophils % Nucleated RBC % PT with INR INR Puncture Site ABG pH ABG pCO2 at Pt Temp ABG pO2 at Pt Temp ABG HCO3 ABG O2 Sat (Measured) ABG O2 Content ABG Base Excess Manuel Test Carboxyhemoglobin Methemoglobin O2 Delivery Device Oxygen Flow Rate Sodium Potassium Chloride Carbon Dioxide Anion Gap BUN Creatinine Est GFR (CKD-EPI)AfAm Est GFR (CKD-EPI)NonAf POC Glucometer 158 166 367 Random Glucose Lactic Acid Calcium Phosphorus Magnesium Total Bilirubin AST ALT Alkaline Phosphatase Troponin I Total Protein Albumin Lipase Urine Color Urine Appearance Urine pH Ur Specific Sandy Urine Protein Urine Glucose (UA) Urine Ketones Urine Blood Urine Nitrite Urine Bilirubin Urine Urobilinogen Ur Leukocyte Esterase Urine WBC (Auto) Urine RBC (Auto) U Epithel Cells (Auto) Urine Bacteria (Auto) Acetone, Qual 09/02/19 09/02/19 09/06/19 16:53 20:56 17:19 WBC RBC Hgb Hct MCV MCH MCHC RDW Plt Count MPV Absolute Neuts (auto) Neutrophils % Lymphocytes % Monocytes % Eosinophils % Basophils % Nucleated RBC % PT with INR INR Puncture Site ABG pH ABG pCO2 at Pt Temp ABG pO2 at Pt Temp ABG HCO3 ABG O2 Sat (Measured) ABG O2 Content ABG Base Excess Manuel Test Carboxyhemoglobin Methemoglobin O2 Delivery Device Oxygen Flow Rate Sodium Potassium Chloride Carbon Dioxide Anion Gap BUN Creatinine Est GFR (CKD-EPI)AfAm Est GFR (CKD-EPI)NonAf POC Glucometer 419 458 367 Random Glucose Lactic Acid Calcium Phosphorus Magnesium Total Bilirubin AST ALT Alkaline Phosphatase Troponin I Total Protein Albumin Lipase Urine Color Urine Appearance Urine pH Ur Specific Sandy Urine Protein Urine Glucose (UA) Urine Ketones Urine Blood Urine Nitrite Urine Bilirubin Urine Urobilinogen Ur Leukocyte Esterase Urine WBC (Auto) Urine RBC (Auto) U Epithel Cells (Auto) Urine Bacteria (Auto) Acetone, Qual 09/06/19 09/07/19 09/07/19 22:05 06:29 11:16 WBC RBC Hgb Hct MCV MCH MCHC RDW Plt Count MPV Absolute Neuts (auto) Neutrophils % Lymphocytes % Monocytes % Eosinophils % Basophils % Nucleated RBC % PT with INR INR Puncture Site ABG pH ABG pCO2 at Pt Temp ABG pO2 at Pt Temp ABG HCO3 ABG O2 Sat (Measured) ABG O2 Content ABG Base Excess Manuel Test Carboxyhemoglobin Methemoglobin O2 Delivery Device Oxygen Flow Rate Sodium Potassium Chloride Carbon Dioxide Anion Gap BUN Creatinine Est GFR (CKD-EPI)AfAm Est GFR (CKD-EPI)NonAf POC Glucometer 297 76 210 Random Glucose Lactic Acid Calcium Phosphorus Magnesium Total Bilirubin AST ALT Alkaline Phosphatase Troponin I Total Protein Albumin Lipase Urine Color Urine Appearance Urine pH Ur Specific Sandy Urine Protein Urine Glucose (UA) Urine Ketones Urine Blood Urine Nitrite Urine Bilirubin Urine Urobilinogen Ur Leukocyte Esterase Urine WBC (Auto) Urine RBC (Auto) U Epithel Cells (Auto) Urine Bacteria (Auto) Acetone, Qual HOSPITAL COURSE: Date of Admission:09/01/19 Date of Discharge: 09/07/19 Seen and examined; I agree with above aside from as documented by myself. Overall remains stable and without profound difficulties noted and clinical improvement. ID consult noted and discussed with consulting services. 10 sys unable to be completed secondary to underlying clinical condition VS, labs, imaging reviewed NAD, AAO, resting in bed RRR s1/2 NC AT EOMI PERRLA NT ND +BS CN2-12 wnl, no fnd Community Acquired MRSA UTI Hyperosmolar hyperglycemia state (resolving) Acute kidney insufficiency (resolved) Uncontrolled diabetes Acute metabolic encephalopathy; r/o NPH Urinary retention possibly 2/2 to BPH Dementia Completed course PO doxy, monitor renal function, planning for DC <Hernesto Cook - Last Filed: 09/09/19 11:31> Discharge Summary Problems reviewed: Yes Reason For Visit: ACUTE KIDNEY INJURY, DIABETIC KETOACIDOSIS, COLITI Current Active Problems KIKI (acute kidney injury) (Acute) DKA (diabetic ketoacidoses) (Acute) Obesity (BMI 30-39.9) (Chronic) - Home Medications Comprehensive Discharge Medication List: Ambulatory Orders Atorvastatin Ca [Lipitor] 40 mg PO DAILY 05/06/19 Clopidogrel Bisulfate [Plavix] 75 mg PO DAILY 05/06/19 Ezetimibe 10 mg PO HS 05/06/19 Nebivolol HCl [Bystolic] 2.5 mg PO HS 05/06/19 Tamsulosin HCl 0.4 mg PO DAILY 05/06/19 Compression Socks, Medium [Futuro Restoring] 1 each MC DAILY #1 each 09/06/19 Donepezil HCl [Aricept -] 5 mg PO DAILY tablet 09/06/19 Doxycycline Hyclate [Vibramycin -] 100 mg PO BID@1000,1800 3 Days #6 capsule 10/15 Escitalopram Oxalate [Lexapro -] 10 mg PO DAILY tablet 09/06/19 Insulin (Levemir) [Levemir Vial] 15 units SQ BID@0700,2200 units 09/06/19 Insulin Aspart [Novolog] 2 unit SQ ACLD #1 cartridge 09/06/19 Insulin Sliding Scale [Novolog Vial Sliding Scale -] 1 vial SQ ACHS units 09/06 Tamsulosin HCl 0.4 mg PO BID #60 capsule 09/06/19 <Stevie Grubbs - Last Filed: 09/06/19 21:19> Current Active Problems KIKI (acute kidney injury) (Acute) DKA (diabetic ketoacidoses) (Acute) Obesity (BMI 30-39.9) (Chronic) - Home Medications Comprehensive Discharge Medication List: Ambulatory Orders Atorvastatin Ca [Lipitor] 40 mg PO DAILY 05/06/19 Clopidogrel Bisulfate [Plavix] 75 mg PO DAILY 05/06/19 Ezetimibe 10 mg PO HS 05/06/19 Nebivolol HCl [Bystolic] 2.5 mg PO HS 05/06/19 Tamsulosin HCl 0.4 mg PO DAILY 05/06/19 Compression Socks, Medium [Futuro Restoring] 1 each MC DAILY #1 each 09/06/19 Donepezil HCl [Aricept -] 5 mg PO DAILY tablet 09/06/19 Doxycycline Hyclate [Vibramycin -] 100 mg PO BID@1000,1800 3 Days #6 capsule 10/15 Escitalopram Oxalate [Lexapro -] 10 mg PO DAILY tablet 09/06/19 Insulin (Levemir) [Levemir Vial] 15 units SQ BID@0700,2200 units 09/06/19 Insulin Aspart [Novolog] 2 unit SQ ACLD #1 cartridge 09/06/19 Insulin Sliding Scale [Novolog Vial Sliding Scale -] 1 vial SQ ACHS units 09/06 Tamsulosin HCl 0.4 mg PO BID #60 capsule 09/06/19 <Hernesto Cook - Last Filed: 09/09/19 11:31> Condition: Stable - Instructions Diet, Activity, Other Instructions: Please STOP using the insulin pump Instead you will be using Levemir 15U TWICE daily Novolog 2U with Lunch and Dinner Sliding scale as below for NEEDED coverage: 100-150 0units 151-200 1units 201-250 2units 251-300 3units 301-350 4units 351-400 6 units >400 6 units and go to the ER or call a doctor Also take Doxycycline 100mg TWICE daily for 3 more days Also continue taking Aricept 5mg daily and Lexapro 10mg daily as suggested by the neurologist We increased your Tamsulosin to 0.4mg TWICE daily and please use compression stockings to help with any orthostatic hypotension seen Diet: Diabetic Dysphagia ground with thin liquids Follow-up with Dr. Duenas regarding the arguello catheter within 3-5 days. Please maintain the arguello catheter with proper care the alf facility Follow-up with Dr. Lynch for the diabetes. Follow-up with Dr. Shahid in 3-5 days to update them on your care Referrals: Stevie Duenas MD [Staff Physician] - 1 Week Xochitl Shahid MD [Staff Physician] - Yoni Lynch MD [Staff Physician] - 2 Weeks Disposition: INTERMEDIATE FACILITY This patient is new to me today: No Emergency Visit: Yes ED Registration Date: 09/01/19 Care time: The patient presented to the Emergency Department on the above date and was hospitalized for further evaluation of their emergent condition. Critical Care patient: No - Discharge Referral Referred to [facility] No <Stevie Grubbs - Last Filed: 09/06/19 21:19> ATTENDING PHYSICIAN STATEMENT I saw and evaluated the patient. I reviewed the resident's note and discussed the case with the resident. I agree with the resident's findings and plan as documented. SUBJECTIVE: OBJECTIVE: ASSESSMENT AND PLAN: <Stevie Grubbs - Last Filed: 09/06/19 21:19> ATTENDING PHYSICIAN STATEMENT I saw and evaluated the patient. I reviewed the resident's note and discussed the case with the resident. I agree with the resident's findings and plan as documented. SUBJECTIVE: OBJECTIVE: ASSESSMENT AND PLAN: <Hernesto Cook - Last Filed: 09/09/19 11:31>
--- NOTE | 2019-09-06 17:06 | PN ---
Progress Note, Physician History of Present Illness: Pt seen and examined at bedside. He is awake and appears comfortable. - Current Medication List Current Medications: Active Medications Acetaminophen (Tylenol -) 650 mg PO Q4H PRN PRN Reason: FEVER Last Admin: 09/04/19 12:31 Dose: 650 mg Atorvastatin Calcium (Lipitor -) 40 mg PO [facility] Last Admin: 09/05/19 21:43 Dose: 40 mg Clopidogrel Bisulfate (Plavix -) 75 mg PO DAILY [facility] Last Admin: 09/06/19 09:10 Dose: 75 mg Donepezil HCl (Aricept -) 5 mg PO DAILY [facility] Last Admin: 09/06/19 09:11 Dose: 5 mg Doxycycline Hyclate (Vibramycin -) 100 mg PO BID@1000,1800 [facility] Last Admin: 09/06/19 09:10 Dose: 100 mg Ezetimibe (Zetia -) 10 mg PO [facility] Last Admin: 09/05/19 21:42 Dose: 10 mg Escitalopram Oxalate (Lexapro -) 10 mg PO DAILY [facility] Stop: 09/09/19 18:11 Last Admin: 09/06/19 09:10 Dose: 10 mg Heparin Sodium (Porcine) (Heparin -) 5,000 unit SQ TID [facility] Last Admin: 09/06/19 13:47 Dose: 5,000 unit Insulin Aspart (Novolog Vial Sliding Scale -) 1 vial SQ [facility]; Protocol Last Admin: 09/06/19 11:48 Dose: 4 units Insulin Detemir (Levemir Vial) 15 units SQ BID@0700,2200 [facility] Last Admin: 09/06/19 06:21 Dose: 15 units Nebivolol (Bystolic -) 2.5 mg PO [facility] Last Admin: 09/05/19 21:42 Dose: 2.5 mg Nystatin (Nystop Powder -) 1 applic TP BID [facility] Last Admin: 09/06/19 09:11 Dose: 1 applic Tamsulosin HCl (Flomax -) 0.4 mg PO DAILY@0830 [facility] Last Admin: 09/06/19 09:10 Dose: 0.4 mg - Objective Vital Signs: Vital Signs Temperature 98.3 F 09/06/19 09:12 Pulse Rate 78 09/06/19 09:12 Respiratory Rate 20 09/06/19 09:12 Blood Pressure 120/54 L 09/06/19 09:12 O2 Sat by Pulse Oximetry (%) 98 09/03/19 09:00 Constitutional: Yes: Calm Eyes: Yes: Other (legaly blind) Cardiovascular: Yes: S1, S2 Respiratory: Yes: CTA Bilaterally Gastrointestinal: Yes: Soft Genitourinary: Yes: Strong Present Musculoskeletal: Yes: WNL Edema: No Neurological: Yes: Oriented Labs: CBC, BMP 09/05/19 06:15 09/06/19 07:25 INR, PTT INR 1.15 (0.83-1.09) H 09/01/19 21:00 Problem List - Problems (1) KIKI (acute kidney injury) Code(s): N17.9 - ACUTE KIDNEY FAILURE, UNSPECIFIED (2) DKA (diabetic ketoacidoses) Code(s): E11.10 - TYPE 2 DIABETES MELLITUS WITH KETOACIDOSIS WITHOUT COMA Qualifiers: Diabetes mellitus type: type 2 Diabetes mellitus complication detail: without coma Qualified Code(s): E11.10 - Type 2 diabetes mellitus with ketoacidosis without coma (3) Acute renal failure Code(s): N17.9 - ACUTE KIDNEY FAILURE, UNSPECIFIED (4) Hypernatremia Code(s): E87.0 - HYPEROSMOLALITY AND HYPERNATREMIA Assessment/Plan Current Medications Generic Name Dose Route Start Last Admin Trade Name Severoq PRN Reason Stop Dose Admin Acetaminophen 650 mg 09/04/19 10:34 09/04/19 12:31 Tylenol - PO 650 mg Q4H PRN Administration FEVER Atorvastatin Calcium 40 mg 09/02/19 22:00 09/05/19 21:43 Lipitor - PO 40 mg HS DAISHA Administration Clopidogrel Bisulfate 75 mg 09/03/19 10:00 09/06/19 09:10 Plavix - PO 75 mg DAILY DAISHA Administration Donepezil HCl 5 mg 09/04/19 10:00 09/06/19 09:11 Aricept - PO 5 mg DAILY DAISHA Administration Doxycycline Hyclate 100 mg 09/05/19 18:00 09/06/19 09:10 Vibramycin - PO 100 mg BID@1000,1800 DAISHA Administration Ezetimibe 10 mg 09/02/19 22:00 09/05/19 21:42 Zetia - PO 10 mg HS DAISHA Administration Escitalopram Oxalate 10 mg 09/04/19 10:00 09/06/19 09:10 Lexapro - PO 09/09/19 18:11 10 mg DAILY DAISHA Administration Heparin Sodium (Porcine) 5,000 unit 09/02/19 22:00 09/06/19 13:47 Heparin - SQ 5,000 unit TID DAISHA Administration Insulin Aspart 1 vial 09/05/19 00:52 09/06/19 11:48 Novolog Vial Sliding Scale - SQ 4 units ACHS [facility]IS[facility] Administration Protocol Insulin Detemir 15 units 09/05/19 00:50 09/06/19 06:21 Levemir Vial SQ 15 units BID@0700,2200 [facility] Administration Nebivolol 2.5 mg 09/02/19 22:00 09/05/19 21:42 Bystolic - PO 2.5 mg HS DAISHA Administration Nystatin 1 applic 09/05/19 11:30 09/06/19 09:11 Nystop Powder - TP 1 applic BID DAISHA Administration Tamsulosin HCl 0.4 mg 09/03/19 08:30 09/06/19 09:10 Flomax - PO 0.4 mg DAILY@0830 [facility] Administration Impression 1. KIKI 2. DKA 3. hypernatremia 4. DM 5. dementia 6. cad Plan - sodium is improved - renal function is improved - diabetic diet, discussed with - KIKI likely secondary to dehydration from DKA - will follow PRN
[2019-09-06] MEDS ORDERED: INSULIN (NOVOLOG) ASPART 100 UNITS/ML 10ML VIAL ONE (20:48)
[2019-09-06] MEDS: EZETIMIBE 10 MG TABLET (FP) PO SCH (22:07)
[2019-09-06] MEDS: NEBIVOLOL 2.5 MG TABLET (FP) PO SCH (22:07)
[2019-09-06] MEDS: ATORVASTATIN CA 40 MG TABLET (FP) PO SCH (22:09)
[2019-09-07] MEDS: INSULIN (LEVEMIR) 100 UNITS/ML UNITS SQ SCH (06:31)
[2019-09-07] MEDS: INSULIN SLIDING SCALE (NOVOLOG) 1 VIAL SQ SCH ×4 (06:31→21:16)
[2019-09-07] MEDS: HEPARIN NA (PORCINE) 5,000 UNITS/ML 1ML VIAL SQ SCH ×3 (06:31→21:14)
[2019-09-07] MEDS ORDERED: PT OWN MED DRAWER 7, Y5N ONE ×2 (08:36→21:08)
[2019-09-07] MEDS: TAMSULOSIN HCL 0.4 MG CAP PO SCH (08:55)
[2019-09-07] MEDS: DOXYCYCLINE HYCLATE 100 MG CAPSULE PO SCH ×2 (09:00→17:35)
[2019-09-07] MEDS: CLOPIDOGREL BISULFATE 75 MG TABLET (FP) PO SCH (09:00)
[2019-09-07] MEDS: ESCITALOPRAM OXALATE 10 MG TABLET (FP) PO SCH (09:00)
[2019-09-07] MEDS: DONEPEZIL HCL 5 MG TABLET (FP) PO SCH (09:00)
[2019-09-07] MEDS: NYSTATIN POWDER 100,000 UNITS/GM - 15 GM TOPICAL POWDER TP SCH ×2 (09:01→21:14)
--- NOTE | 2019-09-07 10:21 | PN ---
Progress Note (short form) - Note Progress Note: Discharge order written yesterday. No issues overnight. Pt without any changes in HPI. Vital Signs Temperature 98.4 F 09/07/19 08:54 Pulse Rate 70 09/07/19 08:54 Respiratory Rate 20 09/07/19 08:54 Blood Pressure 108/82 09/07/19 08:54 O2 Sat by Pulse Oximetry (%) 98 09/03/19 09:00 PE: Gen: NAD, easily arousable Lungs: CTA b/l, no wheezes. On RA CARD: RRR no M/m/r ABD: Soft, Nt/ND, normoactive BS Ext: No edema, pulses intact througout Plan: --Plan remains for discharge to SNF, however pending authorization from insurance per CM. Case discussed with CM and Dr. Joey Grubbs, DO - IM PGY-3 <Stevie Grubbs - Last Filed: 09/07/19 10:16> - Note Progress Note: Was discharged but insurance did not accept. He remains hospitalized with no acute issues. VS, labs, imaging reviewed NAD, AAO, resting in bed NC AT EOMI PERRLA NT ND +BS CN2-12 wnl, no fnd Normal mood, appropriate behavior, demented but no FND. Can follow directions, responds well to verbal cues. A/P: Patient presented for DKA; had complicated UTI with CA-MRSA. ID saw and will complete doxy. Off insulin pump and he should stay off it given repeated issues with managing it. He was discharged on monday but insurance denied his stay in the acute rehab and cannot approve over the weekend so he will likely be here through monday. <Hernesto Cook - Last Filed: 09/09/19 11:34>
[2019-09-07 16:09] VITALS: BMI 26.9
--- NOTE | 2019-09-07 19:44 | PN ---
Progress Note, Physician Chief Complaint: awake yet confused - Current Medication List Current Medications: Active Medications Acetaminophen (Tylenol -) 650 mg PO Q4H PRN PRN Reason: FEVER Last Admin: 09/04/19 12:31 Dose: 650 mg Atorvastatin Calcium (Lipitor -) 40 mg PO [facility] Last Admin: 09/06/19 22:09 Dose: 40 mg Clopidogrel Bisulfate (Plavix -) 75 mg PO DAILY [facility] Last Admin: 09/07/19 09:00 Dose: 75 mg Donepezil HCl (Aricept -) 5 mg PO DAILY [facility] Last Admin: 09/07/19 09:00 Dose: 5 mg Doxycycline Hyclate (Vibramycin -) 100 mg PO BID@1000,1800 [facility] Last Admin: 09/07/19 17:35 Dose: 100 mg Ezetimibe (Zetia -) 10 mg PO [facility] Last Admin: 09/06/19 22:07 Dose: 10 mg Escitalopram Oxalate (Lexapro -) 10 mg PO DAILY [facility] Stop: 09/09/19 18:11 Last Admin: 09/07/19 09:00 Dose: 10 mg Heparin Sodium (Porcine) (Heparin -) 5,000 unit SQ TID [facility] Last Admin: 09/07/19 14:48 Dose: 5,000 unit Insulin Aspart (Novolog Vial Sliding Scale -) 1 vial SQ [facility]; Protocol Last Admin: 09/07/19 17:34 Dose: 8 units Insulin Detemir (Levemir Vial) 15 units SQ BID@0700,2200 [facility] Last Admin: 09/07/19 06:31 Dose: Not Given Nebivolol (Bystolic -) 2.5 mg PO [facility] Last Admin: 09/06/19 22:07 Dose: 2.5 mg Nystatin (Nystop Powder -) 1 applic TP BID [facility] Last Admin: 09/07/19 09:01 Dose: 1 applic Tamsulosin HCl (Flomax -) 0.4 mg PO DAILY@0830 [facility] Last Admin: 09/07/19 08:55 Dose: 0.4 mg - Objective Vital Signs: Vital Signs Temperature 97.3 F L 09/07/19 18:00 Pulse Rate 75 09/07/19 18:00 Respiratory Rate 20 09/07/19 18:00 Blood Pressure 151/72 09/07/19 18:00 O2 Sat by Pulse Oximetry (%) 98 09/03/19 09:00 Constitutional: Yes: Calm Eyes: Yes: EOM Intact HENT: Yes: Normocephalic Neck: Yes: Trachea Midline Cardiovascular: Yes: Regular Rate and Rhythm Respiratory: Yes: CTA Bilaterally Gastrointestinal: Yes: Normal Bowel Sounds ...Rectal Exam: Yes: Deferred Genitourinary: Yes: WNL Musculoskeletal: Yes: Back Pain, Joint Swelling, Muscle Pain, Muscle Weakness Extremities: Yes: WNL Edema: No Labs: CBC, BMP 09/05/19 06:15 09/06/19 07:25 INR, PTT INR 1.15 (0.83-1.09) H 09/01/19 21:00 Problem List - Problems (1) KIKI (acute kidney injury) Code(s): N17.9 - ACUTE KIDNEY FAILURE, UNSPECIFIED (2) Acute renal failure Code(s): N17.9 - ACUTE KIDNEY FAILURE, UNSPECIFIED (3) Altered mental status Code(s): R41.82 - ALTERED MENTAL STATUS, UNSPECIFIED Qualifiers: Altered mental status type: somnolence Qualified Code(s): R40.0 - Somnolence (4) Community acquired pneumonia Code(s): J18.9 - PNEUMONIA, UNSPECIFIED ORGANISM (5) Dehydration Code(s): E86.0 - DEHYDRATION (6) Hyperglycemia Code(s): R73.9 - HYPERGLYCEMIA, UNSPECIFIED Assessment/Plan Current Active Problems dm t2 KIKI (acute kidney injury) (Acute) Obesity (BMI 30-39.9) (Chronic) dementia htn ashd Laboratory Results - last 24 hr 09/06/19 09/07/19 09/07/19 22:05 06:29 11:16 POC Glucometer 297 76 210 09/07/19 17:19 POC Glucometer 343 plan: bgm qid novolog scale levmir q am 18 iu dc to snf
--- NOTE | 2019-09-07 20:53 | PN ---
Progress Note (short form) - Note Progress Note: 1. KIKI 2. DKA 3. hypernatremia 4. DM 5. dementia 6. cad Current Medications Acetaminophen (Tylenol -) 650 mg PO Q4H PRN PRN Reason: FEVER Last Admin: 09/04/19 12:31 Dose: 650 mg Atorvastatin Calcium (Lipitor -) 40 mg PO HS [facility] Last Admin: 09/06/19 22:09 Dose: 40 mg Clopidogrel Bisulfate (Plavix -) 75 mg PO DAILY [facility] Last Admin: 09/07/19 09:00 Dose: 75 mg Donepezil HCl (Aricept -) 5 mg PO DAILY [facility] Last Admin: 09/07/19 09:00 Dose: 5 mg Doxycycline Hyclate (Vibramycin -) 100 mg PO BID@1000,1800 [facility] Last Admin: 09/07/19 17:35 Dose: 100 mg Ezetimibe (Zetia -) 10 mg PO HS [facility] Last Admin: 09/06/19 22:07 Dose: 10 mg Escitalopram Oxalate (Lexapro -) 10 mg PO DAILY [facility] Stop: 09/09/19 18:11 Last Admin: 09/07/19 09:00 Dose: 10 mg Heparin Sodium (Porcine) (Heparin -) 5,000 unit SQ TID [facility] Last Admin: 09/07/19 14:48 Dose: 5,000 unit Insulin Aspart (Novolog Vial Sliding Scale -) 1 vial SQ [facility]; Protocol Last Admin: 09/07/19 17:34 Dose: 8 units Insulin Detemir (Levemir Vial) 18 units SQ AM [facility] Nebivolol (Bystolic -) 2.5 mg PO HS [facility] Last Admin: 09/06/19 22:07 Dose: 2.5 mg Nystatin (Nystop Powder -) 1 applic TP BID [facility] Last Admin: 09/07/19 09:01 Dose: 1 applic Tamsulosin HCl (Flomax -) 0.4 mg PO DAILY@0830 [facility] Last Admin: 09/07/19 08:55 Dose: 0.4 mg Last Vital Signs Temp Pulse Resp BP Pulse Ox 97.3 F L 75 20 151/72 98 09/07/19 18:00 09/07/19 18:00 09/07/19 18:00 09/07/19 18:00 09/03/19 09:00 CBC, BMP 09/05/19 06:15 09/06/19 07:25
[2019-09-07] MEDS ORDERED: INSULIN (NOVOLOG) ASPART 100 UNITS/ML 10ML VIAL ONE (21:08)
[2019-09-07] MEDS ORDERED: INSULIN (LEVEMIR) 100 UNITS/ML UNITS SQ ONE (21:08)
[2019-09-07] MEDS: ATORVASTATIN CA 40 MG TABLET (FP) PO SCH (21:14)
[2019-09-07] MEDS: EZETIMIBE 10 MG TABLET (FP) PO SCH (21:14)
[2019-09-07] MEDS: NEBIVOLOL 2.5 MG TABLET (FP) PO SCH (21:14)
--- NOTE | 2019-09-07 21:20 | PN ---
Progress Note, Physician History of Present Illness: Pt is afebrile, without distress. States he feels "ok". - Current Medication List Current Medications: Active Medications Acetaminophen (Tylenol -) 650 mg PO Q4H PRN PRN Reason: FEVER Last Admin: 09/04/19 12:31 Dose: 650 mg Atorvastatin Calcium (Lipitor -) 40 mg PO HS [facility] Last Admin: 09/06/19 22:09 Dose: 40 mg Clopidogrel Bisulfate (Plavix -) 75 mg PO DAILY [facility] Last Admin: 09/07/19 09:00 Dose: 75 mg Donepezil HCl (Aricept -) 5 mg PO DAILY [facility] Last Admin: 09/07/19 09:00 Dose: 5 mg Doxycycline Hyclate (Vibramycin -) 100 mg PO BID@1000,1800 [facility] Last Admin: 09/07/19 17:35 Dose: 100 mg Ezetimibe (Zetia -) 10 mg PO HS [facility] Last Admin: 09/06/19 22:07 Dose: 10 mg Escitalopram Oxalate (Lexapro -) 10 mg PO DAILY [facility] Stop: 09/09/19 18:11 Last Admin: 09/07/19 09:00 Dose: 10 mg Heparin Sodium (Porcine) (Heparin -) 5,000 unit SQ TID [facility] Last Admin: 09/07/19 14:48 Dose: 5,000 unit Insulin Aspart (Novolog Vial Sliding Scale -) 1 vial SQ [facility]; Protocol Last Admin: 09/07/19 17:34 Dose: 8 units Insulin Detemir (Levemir Vial) 18 units SQ AM [facility] Nebivolol (Bystolic -) 2.5 mg PO HS [facility] Last Admin: 09/06/19 22:07 Dose: 2.5 mg Nystatin (Nystop Powder -) 1 applic TP BID [facility] Last Admin: 09/07/19 09:01 Dose: 1 applic Tamsulosin HCl (Flomax -) 0.4 mg PO DAILY@0830 [facility] Last Admin: 09/07/19 08:55 Dose: 0.4 mg - Objective Vital Signs: Vital Signs Temperature 99.2 F 09/07/19 21:06 Pulse Rate 70 09/07/19 21:06 Respiratory Rate 18 09/07/19 21:06 Blood Pressure 141/64 09/07/19 21:06 O2 Sat by Pulse Oximetry (%) 98 09/03/19 09:00 Constitutional: Yes: No Distress, Calm Cardiovascular: Yes: Regular Rate and Rhythm Respiratory: Yes: Regular Gastrointestinal: Yes: Normal Bowel Sounds, Soft Genitourinary: Yes: Strong Present Extremities: Yes: WNL Integumentary: Yes: WNL Labs: CBC, BMP 09/05/19 06:15 09/06/19 07:25 INR, PTT INR 1.15 (0.83-1.09) H 09/01/19 21:00 Microbiology 09/01/19 23:00 Blood - Peripheral Venous Blood Culture - Final NO GROWTH AFTER 5 DAYS INCUBATION 09/01/19 23:00 Blood - Peripheral Venous Blood Culture - Final NO GROWTH AFTER 5 DAYS INCUBATION 09/01/19 21:16 Urine - Urine Strong Urine Culture - Final Strep Agalactiae Group B Mr S Aureus Staphylococcus Coagulase Neg Problem List - Problems (1) KIKI (acute kidney injury) Code(s): N17.9 - ACUTE KIDNEY FAILURE, UNSPECIFIED (2) Altered mental status Code(s): R41.82 - ALTERED MENTAL STATUS, UNSPECIFIED Qualifiers: Altered mental status type: somnolence Qualified Code(s): R40.0 - Somnolence (3) Urinary retention Code(s): R33.9 - RETENTION OF URINE, UNSPECIFIED (4) CAD (coronary artery disease) Code(s): I25.10 - ATHSCL HEART DISEASE OF [place] CORONARY ARTERY W/O ANG PCTRS (5) CKD stage 3 due to type 2 diabetes mellitus Code(s): E11.22 - TYPE 2 DIABETES MELLITUS W DIABETIC CHRONIC KIDNEY DISEASE; N18.3 - CHRONIC KIDNEY DISEASE, STAGE 3 (MODERATE) (6) Hyperlipidemia Code(s): E78.5 - HYPERLIPIDEMIA, UNSPECIFIED (7) Hypertension Code(s): I10 - ESSENTIAL (PRIMARY) HYPERTENSION (8) Type 2 diabetes mellitus Code(s): E11.9 - TYPE 2 DIABETES MELLITUS WITHOUT COMPLICATIONS Assessment/Plan -- continue doxycycline -- afebrile, vitals stable, without distress discharge planning
[2019-09-08] MEDS: INSULIN SLIDING SCALE (NOVOLOG) 1 VIAL SQ SCH ×5 (06:18→23:40)
[2019-09-08] MEDS: INSULIN (LEVEMIR) 100 UNITS/ML UNITS SQ SCH (06:19)
[2019-09-08] MEDS: HEPARIN NA (PORCINE) 5,000 UNITS/ML 1ML VIAL SQ SCH ×3 (06:19→21:35)
[2019-09-08] MEDS: DOXYCYCLINE HYCLATE 100 MG CAPSULE PO SCH ×2 (09:09→17:19)
[2019-09-08] MEDS: TAMSULOSIN HCL 0.4 MG CAP PO SCH (09:09)
[2019-09-08] MEDS: CLOPIDOGREL BISULFATE 75 MG TABLET (FP) PO SCH (09:09)
[2019-09-08] MEDS: DONEPEZIL HCL 5 MG TABLET (FP) PO SCH (09:09)
[2019-09-08] MEDS: NYSTATIN POWDER 100,000 UNITS/GM - 15 GM TOPICAL POWDER TP SCH ×2 (09:09→21:35)
[2019-09-08] MEDS: ESCITALOPRAM OXALATE 10 MG TABLET (FP) PO SCH (09:09)
[2019-09-08] MEDS ORDERED: INSULIN (NOVOLOG) ASPART 100 UNITS/ML 10ML VIAL ONE ×2 (11:58→20:20)
[2019-09-08] MEDS: ACETAMINOPHEN 325 MG TABLET (FP) PO PRN (18:00)
--- NOTE | 2019-09-08 18:29 | PN ---
Progress Note, Physician History of Present Illness: Pt afebrile. No new complaints. - Current Medication List Current Medications: Active Medications Acetaminophen (Tylenol -) 650 mg PO Q4H PRN PRN Reason: FEVER Last Admin: 09/08/19 18:00 Dose: 650 mg Atorvastatin Calcium (Lipitor -) 40 mg PO HS [facility] Last Admin: 09/07/19 21:14 Dose: 40 mg Clopidogrel Bisulfate (Plavix -) 75 mg PO DAILY [facility] Last Admin: 09/08/19 09:09 Dose: 75 mg Donepezil HCl (Aricept -) 5 mg PO DAILY [facility] Last Admin: 09/08/19 09:09 Dose: 5 mg Doxycycline Hyclate (Vibramycin -) 100 mg PO BID@1000,1800 [facility] Last Admin: 09/08/19 17:19 Dose: 100 mg Ezetimibe (Zetia -) 10 mg PO HS [facility] Last Admin: 09/07/19 21:14 Dose: 10 mg Escitalopram Oxalate (Lexapro -) 10 mg PO DAILY [facility] Stop: 09/09/19 18:11 Last Admin: 09/08/19 09:09 Dose: 10 mg Heparin Sodium (Porcine) (Heparin -) 5,000 unit SQ TID [facility] Last Admin: 09/08/19 13:39 Dose: 5,000 unit Insulin Aspart (Novolog Vial Sliding Scale -) 1 vial SQ [facility]; Protocol Last Admin: 09/08/19 17:19 Dose: 6 units Insulin Detemir (Levemir Vial) 18 units SQ AM [facility] Last Admin: 09/08/19 06:19 Dose: 18 units Nebivolol (Bystolic -) 2.5 mg PO HS [facility] Last Admin: 09/07/19 21:14 Dose: 2.5 mg Nystatin (Nystop Powder -) 1 applic TP BID [facility] Last Admin: 09/08/19 09:09 Dose: 1 applic Tamsulosin HCl (Flomax -) 0.4 mg PO DAILY@0830 [facility] Last Admin: 09/08/19 09:09 Dose: 0.4 mg - Objective Vital Signs: Vital Signs Temperature 97.7 F 09/08/19 14:22 Pulse Rate 67 09/08/19 14:22 Respiratory Rate 18 09/08/19 14:22 Blood Pressure 134/67 09/08/19 14:22 O2 Sat by Pulse Oximetry (%) 98 09/03/19 09:00 Constitutional: Yes: No Distress, Calm Cardiovascular: Yes: Regular Rate and Rhythm Respiratory: Yes: Regular Gastrointestinal: Yes: Normal Bowel Sounds, Soft Genitourinary: Yes: WNL, Strong Present Edema: No Integumentary: Yes: WNL Neurological: Yes: Alert Labs: CBC, BMP 09/05/19 06:15 09/06/19 07:25 INR, PTT INR 1.15 (0.83-1.09) H 09/01/19 21:00 Microbiology 09/01/19 23:00 Blood - Peripheral Venous Blood Culture - Final NO GROWTH AFTER 5 DAYS INCUBATION 09/01/19 23:00 Blood - Peripheral Venous Blood Culture - Final NO GROWTH AFTER 5 DAYS INCUBATION 09/01/19 21:16 Urine - Urine Strong Urine Culture - Final Strep Agalactiae Group B Mr S Aureus Staphylococcus Coagulase Neg Problem List - Problems (1) KIKI (acute kidney injury) Code(s): N17.9 - ACUTE KIDNEY FAILURE, UNSPECIFIED (2) Altered mental status Code(s): R41.82 - ALTERED MENTAL STATUS, UNSPECIFIED Qualifiers: Altered mental status type: somnolence Qualified Code(s): R40.0 - Somnolence (3) Urinary retention Code(s): R33.9 - RETENTION OF URINE, UNSPECIFIED (4) CAD (coronary artery disease) Code(s): I25.10 - ATHSCL HEART DISEASE OF [place] CORONARY ARTERY W/O ANG PCTRS (5) CKD stage 3 due to type 2 diabetes mellitus Code(s): E11.22 - TYPE 2 DIABETES MELLITUS W DIABETIC CHRONIC KIDNEY DISEASE; N18.3 - CHRONIC KIDNEY DISEASE, STAGE 3 (MODERATE) (6) Hyperlipidemia Code(s): E78.5 - HYPERLIPIDEMIA, UNSPECIFIED (7) Hypertension Code(s): I10 - ESSENTIAL (PRIMARY) HYPERTENSION (8) Type 2 diabetes mellitus Code(s): E11.9 - TYPE 2 DIABETES MELLITUS WITHOUT COMPLICATIONS Assessment/Plan UTI KIKI DM Dementia -- continue doxycycline -- afebrile, vitals stable, without distress
[2019-09-08] MEDS ORDERED: PT OWN MED DRAWER 7, Y5N ONE (20:20)
[2019-09-08] MEDS: EZETIMIBE 10 MG TABLET (FP) PO SCH (21:35)
[2019-09-08] MEDS: NEBIVOLOL 2.5 MG TABLET (FP) PO SCH (21:35)
[2019-09-08] MEDS: ATORVASTATIN CA 40 MG TABLET (FP) PO SCH (21:35)
[2019-09-09] MEDS: HEPARIN NA (PORCINE) 5,000 UNITS/ML 1ML VIAL SQ SCH ×3 (05:56→22:35)
[2019-09-09] MEDS: INSULIN SLIDING SCALE (NOVOLOG) 1 VIAL SQ SCH ×4 (06:01→22:37)
[2019-09-09] MEDS: INSULIN (LEVEMIR) 100 UNITS/ML UNITS SQ SCH (06:01)
--- NOTE | 2019-09-09 09:24 | PN ---
Physical Exam: SUBJECTIVE: Patient seen and examined; no updates from insurance. Resubmitting. Assuming likely placement tomorrow. No neuro deficits. Responds to verbal cues but dementia and language barrier continue to limit communication. 10 sys ROS less reliable given the underlying prescribed issues OBJECTIVE: Vital Signs Period Temp Pulse Resp BP Sys/Poole Pulse Ox Last 24 Hr 97.6 F-98.8 F 57-88 16-18 116-145/50-78 Laboratory Results - last 24 hr 09/08/19 09/08/19 09/08/19 11:06 16:40 20:55 POC Glucometer 298 276 375 09/08/19 09/09/19 09/09/19 22:56 00:42 05:47 POC Glucometer 324 240 232 Active Medications Generic Name Dose Route Start Last Admin Trade Name Freq PRN Reason Stop Dose Admin Acetaminophen 650 mg 09/04/19 10:34 09/08/19 18:00 Tylenol - PO 650 mg Q4H PRN Administration FEVER Atorvastatin Calcium 40 mg 09/02/19 22:00 09/08/19 21:35 Lipitor - PO 40 mg HS [facility] Administration Clopidogrel Bisulfate 75 mg 09/03/19 10:00 09/08/19 09:09 Plavix - PO 75 mg DAILY [facility] Administration Donepezil HCl 5 mg 09/04/19 10:00 09/08/19 09:09 Aricept - PO 5 mg DAILY [facility] Administration Doxycycline Hyclate 100 mg 09/05/19 18:00 09/08/19 17:19 Vibramycin - PO 100 mg BID@1000,1800 [facility] Administration Ezetimibe 10 mg 09/02/19 22:00 09/08/19 21:35 Zetia - PO 10 mg HS [facility] Administration Escitalopram Oxalate 10 mg 09/04/19 10:00 09/08/19 09:09 Lexapro - PO 09/09/19 18:11 10 mg DAILY [facility] Administration Heparin Sodium (Porcine) 5,000 unit 09/02/19 22:00 09/09/19 05:56 Heparin - SQ 5,000 unit TID [facility] Administration Insulin Aspart 1 vial 09/05/19 00:52 09/09/19 06:01 Novolog Vial Sliding Scale - SQ 4 units ACHS [facility] Administration Protocol Insulin Detemir 18 units 09/08/19 07:00 09/09/19 06:01 Levemir Vial SQ 18 units AM [facility] Administration Nebivolol 2.5 mg 09/02/19 22:00 09/08/19 21:35 Bystolic - PO 2.5 mg HS [facility] Administration Nystatin 1 applic 09/05/19 11:30 09/08/19 21:35 Nystop Powder - TP 1 applic BID [facility] Administration Tamsulosin HCl 0.4 mg 09/03/19 08:30 09/08/19 09:09 Flomax - PO 0.4 mg DAILY@0830 [facility] Administration ASSESSMENT/PLAN: Was discharged but insurance did not accept. He remains hospitalized with no acute issues. A/P: Patient presented for DKA; had complicated UTI with CA-MRSA. ID saw and will complete doxy. Off insulin pump and he should stay off it given repeated issues with managing it. He was discharged on monday but insurance denied his stay in the acute rehab and cannot approve over the weekend so he will likely be here through monday. No new issues today so will continue to monitor. Updated family. Visit type - Emergency Visit Emergency Visit: Yes ED Registration Date: 09/01/19 Care time: The patient presented to the Emergency Department on the above date and was hospitalized for further evaluation of their emergent condition. - New Patient This patient is new to me today: No - Critical Care Critical Care patient: No
--- NOTE | 2019-09-09 09:54 | PN ---
Progress Note, Physician History of Present Illness: vents noted chart reviewed Seen on the floor Alert awake oriented Still with the right facial droop chronic No report of any new neurological event - Current Medication List Current Medications: Active Medications Acetaminophen (Tylenol -) 650 mg PO Q4H PRN PRN Reason: FEVER Last Admin: 09/08/19 18:00 Dose: 650 mg Atorvastatin Calcium (Lipitor -) 40 mg PO HS [facility] Last Admin: 09/08/19 21:35 Dose: 40 mg Clopidogrel Bisulfate (Plavix -) 75 mg PO DAILY [facility] Last Admin: 09/08/19 09:09 Dose: 75 mg Donepezil HCl (Aricept -) 5 mg PO DAILY [facility] Last Admin: 09/08/19 09:09 Dose: 5 mg Doxycycline Hyclate (Vibramycin -) 100 mg PO BID@1000,1800 [facility] Last Admin: 09/08/19 17:19 Dose: 100 mg Ezetimibe (Zetia -) 10 mg PO HS [facility] Last Admin: 09/08/19 21:35 Dose: 10 mg Escitalopram Oxalate (Lexapro -) 10 mg PO DAILY [facility] Stop: 09/09/19 18:11 Last Admin: 09/08/19 09:09 Dose: 10 mg Heparin Sodium (Porcine) (Heparin -) 5,000 unit SQ TID [facility] Last Admin: 09/09/19 05:56 Dose: 5,000 unit Insulin Aspart (Novolog Vial Sliding Scale -) 1 vial SQ [facility]S [facility]CLUDE 234 [facility]S [facility]; Protocol Last Admin: 09/09/19 06:01 Dose: 4 units Insulin Detemir (Levemir Vial) 18 units SQ AM [facility] Last Admin: 09/09/19 06:01 Dose: 18 units Nebivolol (Bystolic -) 2.5 mg PO HS [facility] Last Admin: 09/08/19 21:35 Dose: 2.5 mg Nystatin (Nystop Powder -) 1 applic TP BID [facility] Last Admin: 09/08/19 21:35 Dose: 1 applic Tamsulosin HCl (Flomax -) 0.4 mg PO DAILY@0830 [facility] Last Admin: 09/08/19 09:09 Dose: 0.4 mg - Objective Vital Signs: Vital Signs Temperature 98.8 F 09/09/19 06:00 Pulse Rate 57 L 09/09/19 06:00 Respiratory Rate 16 09/09/19 09:00 Blood Pressure 116/53 L 09/09/19 06:00 O2 Sat by Pulse Oximetry (%) 98 09/03/19 09:00 Constitutional: Yes: Well Nourished Eyes: Yes: WNL HENT: Yes: WNL Neurological: Yes: Alert, Oriented, Babinski positive ...Motor Strength: WNL Labs: CBC, BMP 09/05/19 06:15 09/06/19 07:25 INR, PTT INR 1.15 (0.83-1.09) H 09/01/19 21:00 Problem List - Problems (1) Altered mental status Assessment/Plan: improving baselinemental status changes Still with a poorly controlled diabetes Dementia normal pressure hydrocephalus not a candidate for shunt 1. Fall precautions. 2. Tight blood sugar control. 3. Increase Lexapro to 10 mg once daily. 4. Increase Aricept to 10 mg once daily. 5. Physical therapy. 6. Suggest subacute nursing facility Code(s): R41.82 - ALTERED MENTAL STATUS, UNSPECIFIED Qualifiers: Altered mental status type: somnolence Qualified Code(s): R40.0 - Somnolence
--- NOTE | 2019-09-09 10:29 | PN ---
Progress Note, Physician History of Present Illness: stable no new issues - Current Medication List Current Medications: Active Medications Acetaminophen (Tylenol -) 650 mg PO Q4H PRN PRN Reason: FEVER Last Admin: 09/08/19 18:00 Dose: 650 mg Atorvastatin Calcium (Lipitor -) 40 mg PO HS [facility] Last Admin: 09/08/19 21:35 Dose: 40 mg Clopidogrel Bisulfate (Plavix -) 75 mg PO DAILY [facility] Last Admin: 09/08/19 09:09 Dose: 75 mg Donepezil HCl (Aricept -) 5 mg PO DAILY [facility] Last Admin: 09/08/19 09:09 Dose: 5 mg Doxycycline Hyclate (Vibramycin -) 100 mg PO BID@1000,1800 [facility] Last Admin: 09/08/19 17:19 Dose: 100 mg Ezetimibe (Zetia -) 10 mg PO HS [facility] Last Admin: 09/08/19 21:35 Dose: 10 mg Escitalopram Oxalate (Lexapro -) 10 mg PO DAILY [facility] Stop: 09/09/19 18:11 Last Admin: 09/08/19 09:09 Dose: 10 mg Heparin Sodium (Porcine) (Heparin -) 5,000 unit SQ TID [facility] Last Admin: 09/09/19 05:56 Dose: 5,000 unit Insulin Aspart (Novolog Vial Sliding Scale -) [address] [facility]; Protocol Last Admin: 09/09/19 06:01 Dose: 4 units Insulin Detemir (Levemir Vial) 18 units SQ AM [facility] Last Admin: 09/09/19 06:01 Dose: 18 units Nebivolol (Bystolic -) 2.5 mg PO HS [facility] Last Admin: 09/08/19 21:35 Dose: 2.5 mg Nystatin (Nystop Powder -) 1 applic TP BID [facility] Last Admin: 09/08/19 21:35 Dose: 1 applic Tamsulosin HCl (Flomax -) 0.4 mg PO DAILY@0830 [facility] Last Admin: 09/08/19 09:09 Dose: 0.4 mg - Objective Vital Signs: Vital Signs Temperature 98.8 F 09/09/19 06:00 Pulse Rate 57 L 09/09/19 06:00 Respiratory Rate 16 09/09/19 09:00 Blood Pressure 116/53 L 09/09/19 06:00 O2 Sat by Pulse Oximetry (%) 98 09/03/19 09:00 Constitutional: Yes: No Distress, Calm Cardiovascular: Yes: Regular Rate and Rhythm Respiratory: Yes: Regular, CTA Bilaterally Gastrointestinal: Yes: Normal Bowel Sounds, Soft Musculoskeletal: Yes: WNL Extremities: Yes: WNL Neurological: Yes: Alert, Oriented Psychiatric: Yes: Alert, Oriented Labs: CBC, BMP 09/05/19 06:15 09/06/19 07:25 INR, PTT INR 1.15 (0.83-1.09) H 09/01/19 21:00 Assessment/Plan 79 year old man with a history of HTN, hyperlipidemia, CAD, [place], CABG, chronic diastolic heart failure, type 2 DM, stage 3 CKD, COPD, dementia who presented to the ED with altered mental status. 1. Acute metabolic encephalopathy 2. Acute kidney injury 3. Abdominal pain 4. UTI 5. Lactic acidosis 6. Hypernatremia 7. Hypophosphatemia 8. HTN 9. Hyperlipidemia 10. CAD, history of [place], CABG 11. Chronic diastolic heart failure 12. Stage 3 CKD 13. COPD 14. Alzheimer dementia plan continue current mgmt monitor rest as per the team
[2019-09-09] MEDS: ESCITALOPRAM OXALATE 10 MG TABLET (FP) PO SCH (11:09)
[2019-09-09] MEDS: TAMSULOSIN HCL 0.4 MG CAP PO SCH (11:09)
[2019-09-09] MEDS: DONEPEZIL HCL 5 MG TABLET (FP) PO SCH (11:09)
[2019-09-09] MEDS: CLOPIDOGREL BISULFATE 75 MG TABLET (FP) PO SCH (11:09)
[2019-09-09] MEDS: DOXYCYCLINE HYCLATE 100 MG CAPSULE PO SCH ×3 (11:09→18:32)
[2019-09-09] MEDS: NYSTATIN POWDER 100,000 UNITS/GM - 15 GM TOPICAL POWDER TP SCH ×2 (11:10→22:42)
--- NOTE | 2019-09-09 15:29 | PN ---
Progress Note, Physician History of Present Illness: Pt seen and examined. He appears comfortable. - Current Medication List Current Medications: Active Medications Acetaminophen (Tylenol -) 650 mg PO Q4H PRN PRN Reason: FEVER Last Admin: 09/08/19 18:00 Dose: 650 mg Atorvastatin Calcium (Lipitor -) 40 mg PO HS REPLACED BY [facility] Last Admin: 09/08/19 21:35 Dose: 40 mg Clopidogrel Bisulfate (Plavix -) 75 mg PO DAILY REPLACED BY [facility] Last Admin: 09/09/19 11:09 Dose: 75 mg Donepezil HCl (Aricept -) 5 mg PO DAILY REPLACED BY [facility] Last Admin: 09/09/19 11:09 Dose: 5 mg Doxycycline Hyclate (Vibramycin -) 100 mg PO BID@1000,1800 REPLACED BY [facility] Last Admin: 09/09/19 11:09 Dose: 100 mg Ezetimibe (Zetia -) 10 mg PO HS REPLACED BY [facility] Last Admin: 09/08/19 21:35 Dose: 10 mg Escitalopram Oxalate (Lexapro -) 10 mg PO DAILY REPLACED BY [facility] Stop: 09/09/19 18:11 Last Admin: 09/09/19 11:09 Dose: 10 mg Heparin Sodium (Porcine) (Heparin -) 5,000 unit SQ TID REPLACED BY [facility] Last Admin: 09/09/19 15:05 Dose: Not Given Insulin Aspart (Novolog Vial Sliding Scale -) 1 vial SQ [facility] REPLACED BY [facility]; Protocol Last Admin: 09/09/19 14:03 Dose: 10 units Insulin Detemir (Levemir Vial) 18 units SQ AM REPLACED BY [facility] Last Admin: 09/09/19 06:01 Dose: 18 units Nebivolol (Bystolic -) 2.5 mg PO HS REPLACED BY [facility] Last Admin: 09/08/19 21:35 Dose: 2.5 mg Nystatin (Nystop Powder -) 1 applic TP BID REPLACED BY [facility] Last Admin: 09/09/19 11:10 Dose: 1 applic Tamsulosin HCl (Flomax -) 0.4 mg PO DAILY@0830 REPLACED BY [facility] Last Admin: 09/09/19 11:09 Dose: 0.4 mg - Objective Vital Signs: Vital Signs Temperature 98.2 F 09/09/19 14:08 Pulse Rate 63 09/09/19 14:08 Respiratory Rate 20 09/09/19 14:08 Blood Pressure 120/62 09/09/19 14:08 O2 Sat by Pulse Oximetry (%) 98 09/03/19 09:00 Constitutional: Yes: Calm HENT: Yes: Other (legally blind) Cardiovascular: Yes: S1, S2 Respiratory: Yes: CTA Bilaterally Gastrointestinal: Yes: Soft Musculoskeletal: Yes: WNL Edema: No Neurological: Yes: Oriented Labs: CBC, BMP 09/05/19 06:15 09/06/19 07:25 INR, PTT INR 1.15 (0.83-1.09) H 09/01/19 21:00 Problem List - Problems (1) KIKI (acute kidney injury) Code(s): N17.9 - ACUTE KIDNEY FAILURE, UNSPECIFIED (2) DKA (diabetic ketoacidoses) Code(s): E11.10 - TYPE 2 DIABETES MELLITUS WITH KETOACIDOSIS WITHOUT COMA Qualifiers: Diabetes mellitus type: type 2 Diabetes mellitus complication detail: without coma Qualified Code(s): E11.10 - Type 2 diabetes mellitus with ketoacidosis without coma (3) Acute renal failure Code(s): N17.9 - ACUTE KIDNEY FAILURE, UNSPECIFIED (4) Hypernatremia Code(s): E87.0 - HYPEROSMOLALITY AND HYPERNATREMIA Assessment/Plan Current Medications Generic Name Dose Route Start Last Admin Trade Name Freq PRN Reason Stop Dose Admin Acetaminophen 650 mg 09/04/19 10:34 09/08/19 18:00 Tylenol - PO 650 mg Q4H PRN Administration FEVER Atorvastatin Calcium 40 mg 09/02/19 22:00 09/08/19 21:35 Lipitor - PO 40 mg HS DAISHA Administration Clopidogrel Bisulfate 75 mg 09/03/19 10:00 09/09/19 11:09 Plavix - PO 75 mg DAILY DAISHA Administration Donepezil HCl 5 mg 09/04/19 10:00 09/09/19 11:09 Aricept - PO 5 mg DAILY DAISHA Administration Doxycycline Hyclate 100 mg 09/05/19 18:00 09/09/19 11:09 Vibramycin - PO 100 mg BID@1000,1800 DAISHA Administration Ezetimibe 10 mg 09/02/19 22:00 09/08/19 21:35 Zetia - PO 10 mg HS DAISHA Administration Escitalopram Oxalate 10 mg 09/04/19 10:00 09/09/19 11:09 Lexapro - PO 09/09/19 18:11 10 mg DAILY DAISHA Administration Heparin Sodium (Porcine) 5,000 unit 10/07/19 22:00 09/09/19 15:05 Heparin - SQ Not Given TID DAISHA Insulin Aspart 1 vial 09/05/19 00:52 09/09/19 14:03 Novolog Vial Sliding Scale - SQ 10 units ACHS DAISHA Administration Protocol Insulin Detemir 18 units 09/08/19 07:00 09/09/19 06:01 Levemir Vial SQ 18 units AM DAISHA Administration Nebivolol 2.5 mg 09/02/19 22:00 09/08/19 21:35 Bystolic - PO 2.5 mg HS DAISHA Administration Nystatin 1 applic 09/05/19 11:30 09/09/19 11:10 Nystop Powder - TP 1 applic BID DAISHA Administration Tamsulosin HCl 0.4 mg 09/03/19 08:30 09/09/19 11:09 Flomax - PO 0.4 mg DAILY@0830 DAISHA Administration Impression 1. KIKI 2. DKA 3. hypernatremia 4. DM 5. dementia 6. cad Plan - no new labs - check bmp in am if not discharged - KIKI likely secondary to dehydration from DKA - will follow PRN
--- NOTE | 2019-09-09 17:39 | PN ---
Physical Exam: SUBJECTIVE: Patient seen and examined Completed peer to peer. They cite PT note from 09/05 as reason for denial. Myself and resident team have met with family every day and have spoken with [employer] Merly steen extensively regarding this patinet and his DC planning. Peer reviewer indicates that lethargy annotated in PT exam as well as his inability to participate in PT that day as reason to deny rehab. I informed him that patient has not been seen by PT in this capacity over the weekend and that is when he was recovering from an acute clinical illness. He has since improved and is even known to therapeutic case manager to be doing well in transfers from bed to [facility], and would be willing to participate in further PT. He has no functional neuro deficits restricting him from getting out of bed even though he is a fall risk. He furthermore has no indication that he has had any indication of progressive or persistent lethargy. He is absolutely demented which limits communication, but he also has a language barrier; his primary mail deliverer is his son but when his son isnt here or mail deliverer phone isnt used his is used to communicate. It is notable that she herself is advanced in age (though not frankly demented) and has limited macedonian language abilities. I agree that this patient is significantly deconditioned but strongly disagree in the sense that there is no documented way is functionally bedbound aside from the old PT notes. Despite my indication of improved status and exam the denial was put through. I was only told he was too lethargic and deconditioned to participate in PT due to the initial PT note again as a response which is odd as none of the information I offered reviewer was taken into consideration. I tried calling back multiple times using multiple tax IDs but throughout the hour I could not reach a human connection capable of doing the emergency appeal before noon. I disucssed this at length with CM who was in contact with patient 's son and has documented conversation since. Will discuss with case management and insurance tomorrow. If not will likely need to defer to home services. OBJECTIVE: Vital Signs Period Temp Pulse Resp BP Sys/Poole Pulse Ox Last 24 Hr 97.6 F-98.8 F 57-88 16-20 116-145/50-78 VS, labs, imaging reviewed NAD, AAOx1, resting in bed, responsive RRR s1/2 NC AT EOMI PERRLA NT ND +BS CN2-12 wnl, no fnd Not agitated, limited insight, dementia apparent No rashes or breakdown Moves all 4 ext with normal muscle tone Laboratory Results - last 24 hr 09/08/19 09/08/19 09/09/19 20:55 22:56 00:42 POC Glucometer 375 324 240 09/09/19 09/09/19 05:47 13:56 POC Glucometer 232 382 Active Medications Generic Name Dose Route Start Last Admin Trade Name Freq PRN Reason Stop Dose Admin Acetaminophen 650 mg 09/04/19 10:34 09/08/19 18:00 Tylenol - PO 650 mg Q4H PRN Administration FEVER Atorvastatin Calcium 40 mg 09/02/19 22:00 09/08/19 21:35 Lipitor - PO 40 mg HS DAISHA Administration Clopidogrel Bisulfate 75 mg 09/03/19 10:00 09/09/19 11:09 Plavix - PO 75 mg DAILY DAISHA Administration Donepezil HCl 5 mg 09/04/19 10:00 09/09/19 11:09 Aricept - PO 5 mg DAILY DAISHA Administration Doxycycline Hyclate 100 mg 09/05/19 18:00 09/09/19 11:09 Vibramycin - PO 100 mg BID@1000,1800 DAISHA Administration Ezetimibe 10 mg 09/02/19 22:00 09/08/19 21:35 Zetia - PO 10 mg HS DAISHA Administration Escitalopram Oxalate 10 mg 09/04/19 10:00 09/09/19 11:09 Lexapro - PO 09/09/19 18:11 10 mg DAILY DAISHA Administration Heparin Sodium (Porcine) 5,000 unit 09/02/19 22:00 09/09/19 15:05 Heparin - SQ Not Given TID DAISHA Insulin Aspart 1 vial 09/05/19 00:52 09/09/19 14:03 Novolog Vial Sliding Scale - SQ 10 units ACHS DAISHA Administration Protocol Insulin Detemir 18 units 09/08/19 07:00 09/09/19 06:01 Levemir Vial SQ 18 units AM DAISHA Administration Nebivolol 2.5 mg 09/02/19 22:00 09/08/19 21:35 Bystolic - PO 2.5 mg HS DAISHA Administration Nystatin 1 applic 09/05/19 11:30 09/09/19 11:10 Nystop Powder - TP 1 applic BID DAISHA Administration Tamsulosin HCl 0.4 mg 09/03/19 08:30 09/09/19 11:09 Flomax - PO 0.4 mg DAILY@0830 DAISHA Administration ASSESSMENT/PLAN: Rechecking labs; spoke to resident and we will continue to uptitrate insulin. Noted changes made by endocrine but still poorly controlled; I suspect he will need premeal coverage. Visit type - Emergency Visit Emergency Visit: Yes ED Registration Date: 09/01/19 Care time: The patient presented to the Emergency Department on the above date and was hospitalized for further evaluation of their emergent condition. - New Patient This patient is new to me today: No - Critical Care Critical Care patient: No
[2019-09-09 19:03] LABS: BASO % 0.9 % (0-2.0); EOS % 3.3 % (0-4.5); HEMOGLOBIN 9.6 GM/dL (11.7-16.9); MCH 28.6 pg (25.7-33.7); MEAN CELL VOLUME 89.2 fl (80-96); MEAN PLT VOLUME 8.6 fl (7.5-11.1); MONO % 15.6 % (3.8-10.2); NEUT % 57.2 % (42.8-82.8); PLATELET COUNT 200 K/MM3 (134-434); RBC 3.36 M/mm3 (4.00-5.60); RDW 14.1 % (11.9-15.9); WHITE BLOOD COUNT 9.1 K/mm3 (4.0-10.0)
[2019-09-09 19:28] LABS: BLOOD UREA NITROGEN 27.5 mg/dL (7-18); CALCIUM 8.4 mg/dL (8.5-10.1); CREATININE 1.3 mg/dL (0.55-1.3); POTASSIUM 5.1 mmol/L (3.5-5.1)
[2019-09-09] MEDS ORDERED: PT OWN MED DRAWER 7, Y5N ONE (20:45)
[2019-09-09] MEDS: ATORVASTATIN CA 40 MG TABLET (FP) PO SCH (22:36)
[2019-09-09] MEDS: EZETIMIBE 10 MG TABLET (FP) PO SCH (22:36)
[2019-09-09] MEDS: NEBIVOLOL 2.5 MG TABLET (FP) PO SCH (22:36)
[2019-09-10] MEDS: HEPARIN NA (PORCINE) 5,000 UNITS/ML 1ML VIAL SQ SCH ×3 (06:29→22:23)
[2019-09-10] MEDS: INSULIN SLIDING SCALE (NOVOLOG) 1 VIAL SQ SCH ×4 (06:29→22:23)
[2019-09-10] MEDS: INSULIN (LEVEMIR) 100 UNITS/ML UNITS SQ SCH (06:29)
--- NOTE | 2019-09-10 08:10 | DS ---
Physical Exam: SUBJECTIVE: Patient seen and examined; no events overnight. Continues to have suboptimal glycemic control; uptitrated levemir and addec 2 units aspart premeal. Overall no significant changes. All subspecialty input noted. Pending approval with appeal. If appeal not approved will likely need to coordinate home services. Pending PT reevaluation. Discussed with SW and admin. 10 sys ROS done and negative aside from HPI OBJECTIVE: Vital Signs Period Temp Pulse Resp BP Sys/Poole Pulse Ox Last 24 Hr 97.5 F-98.8 F 63-69 16-20 120-125/54-62 PHYSICAL EXAM VS, labs, imaging reviewed NAD, AAOx1, resting in bed, responsive RRR s1/2 NC AT EOMI PERRLA NT ND +BS CN2-12 wnl, no fnd Not agitated, limited insight, dementia apparent No rashes or breakdown Moves all 4 ext with normal muscle tone LABS Laboratory Results - last 24 hr 09/09/19 09/09/19 09/09/19 13:56 18:15 18:40 WBC 9.1 RBC 3.36 L Hgb 9.6 L Hct 30.0 L MCV 89.2 MCH 28.6 MCHC 32.0 RDW 14.1 Plt Count 200 D MPV 8.6 Absolute Neuts (auto) 5.2 Neutrophils % 57.2 D Lymphocytes % 23.0 D Monocytes % 15.6 H Eosinophils % 3.3 D Basophils % 0.9 Nucleated RBC % 0 Sodium Potassium Chloride Carbon Dioxide Anion Gap BUN Creatinine Est GFR (CKD-EPI)AfAm Est GFR (CKD-EPI)NonAf POC Glucometer 382 369 Random Glucose Calcium 09/09/19 09/09/19 09/10/19 18:40 22:25 06:27 WBC RBC Hgb Hct MCV MCH MCHC RDW Plt Count MPV Absolute Neuts (auto) Neutrophils % Lymphocytes % Monocytes % Eosinophils % Basophils % Nucleated RBC % Sodium 136 Potassium 5.1 Chloride 103 Carbon Dioxide 27 Anion Gap 6 L BUN 27.5 H Creatinine 1.3 Est GFR (CKD-EPI)AfAm 60.15 Est GFR (CKD-EPI)NonAf 51.90 POC Glucometer 193 345 Random Glucose 398 H Calcium 8.4 L HOSPITAL COURSE: Date of Admission:09/01/19 Date of Discharge: 09/10/19 Prolonged hospitalization due to insurance denial-was denied monday and had to stay through the weekend, then denied again monday and appeal was pending until monday due to initial PT eval stating lethargy and inability to participate in PT. He was admitted for DKA and was found to have ongoing issues with his insulin pump likely secondary to his underlying dementia. Despite familial support he had issues with glycemic control. He was aggressively hydrated adn trated in the ICU with the DKA protocol and then discharged to the floor. KIKI resolved and was likely prerenal secondary to dehydration due to the underlying DKA. We consulted endocrine who agreed with discontinuing the pump and placing him on SQ regimine. He had difficult to control glucose but these were improved compared to his baseline. He is currently on 22 qAM Levemir with 2 Aspart pre- lunch/dinner and SSI. He should continue to have AC+HS fsg with qAM checks as well. Needs to keep all DM followups (Endo, PCP, nephro, podiatry). Minutes to complete discharge: 33 Discharge Summary Problems reviewed: Yes Reason For Visit: ACUTE KIDNEY INJURY, DIABETIC KETOACIDOSIS, COLITI Current Active Problems KIKI (acute kidney injury) (Acute) DKA (diabetic ketoacidoses) (Acute) Obesity (BMI 30-39.9) (Chronic) Condition: Stable - Instructions Diet, Activity, Other Instructions: Please STOP using the insulin pump Instead you will be using Levemir 22 qAM Novolog 2U with Lunch and Dinner Sliding scale as below for NEEDED coverage: 100-150 0units 151-200 1units 201-250 2units 251-300 3units 301-350 4units 351-400 6 units >400 6 units and go to the ER or call a doctor Also take Doxycycline 100mg TWICE daily for 3 more days Also continue taking Aricept 5mg daily and Lexapro 10mg daily as suggested by the neurologist We increased your Tamsulosin to 0.4mg TWICE daily and please use compression stockings to help with any orthostatic hypotension seen Diet: Diabetic Dysphagia ground with thin liquids Follow-up with Dr. Duenas regarding the arguello catheter within 3-5 days. Please maintain the arguello catheter with proper care the correction facility Follow-up with Dr. Lynch for the diabetes. Follow-up with Dr. Shahid in 3-5 days to update them on your care Referrals: Stevie Duenas MD [Staff Physician] - 1 Week Xochitl Shahid MD [Staff Physician] - Yoni Lynch MD [Staff Physician] - 2 Weeks Sintia Belle DPM [Staff Physician] - 1 Month (For diabetic foot checks) Disposition: CARE HOME FACILITY - Home Medications Comprehensive Discharge Medication List: Ambulatory Orders Atorvastatin Ca [Lipitor] 40 mg PO DAILY 05/06/19 Clopidogrel Bisulfate [Plavix] 75 mg PO DAILY 05/06/19 Ezetimibe 10 mg PO HS 05/06/19 Nebivolol HCl [Bystolic] 2.5 mg PO HS 05/06/19 Tamsulosin HCl 0.4 mg PO DAILY 05/06/19 Compression Socks, Medium [Futuro Restoring] 1 each MC DAILY #1 each 09/06/19 Donepezil HCl [Aricept -] 5 mg PO DAILY tablet 09/06/19 Doxycycline Hyclate [Vibramycin -] 100 mg PO BID@1000,1800 3 Days #6 capsule 10/15 Escitalopram Oxalate [Lexapro -] 10 mg PO DAILY tablet 09/06/19 Insulin (Levemir) [Levemir Vial] 15 units SQ BID@0700,2200 units 09/06/19 Insulin Aspart [Novolog] 2 unit SQ ACLD #1 cartridge 09/06/19 Insulin Sliding Scale [Novolog Vial Sliding Scale -] 1 vial SQ ACHS units 09/06 Tamsulosin HCl 0.4 mg PO BID #60 capsule 09/06/19 This patient is new to me today: No Emergency Visit: Yes ED Registration Date: 09/01/19 Care time: The patient presented to the Emergency Department on the above date and was hospitalized for further evaluation of their emergent condition. Critical Care patient: No - Discharge Referral Referred to [facility] No
[2019-09-10 10:12] LABS: HEMATOCRIT 32.5 % (35.4-49); HEMOGLOBIN 10.5 GM/dL (11.7-16.9); MCH 28.9 pg (25.7-33.7); MCHC 32.4 g/dl (32.0-35.9); MEAN CELL VOLUME 89.3 fl (80-96); MEAN PLT VOLUME 8.5 fl (7.5-11.1); PLATELET COUNT 224 K/MM3 (134-434); RBC 3.64 M/mm3 (4.00-5.60); RDW 14.2 % (11.9-15.9); WHITE BLOOD COUNT 9.4 K/mm3 (4.0-10.0)
[2019-09-10 10:40] LABS: BLOOD UREA NITROGEN 23.9 mg/dL (7-18); CALCIUM 8.9 mg/dL (8.5-10.1); CREATININE 1.3 mg/dL (0.55-1.3); POTASSIUM 5.3 mmol/L (3.5-5.1)
[2019-09-10] MEDS: NYSTATIN POWDER 100,000 UNITS/GM - 15 GM TOPICAL POWDER TP SCH ×2 (11:28→22:33)
[2019-09-10] MEDS: TAMSULOSIN HCL 0.4 MG CAP PO SCH (11:28)
[2019-09-10] MEDS: CLOPIDOGREL BISULFATE 75 MG TABLET (FP) PO SCH (11:28)
[2019-09-10] MEDS: DONEPEZIL HCL 5 MG TABLET (FP) PO SCH (11:28)
--- NOTE | 2019-09-10 11:39 | PN ---
Progress Note, Physician History of Present Illness: confused refusing abx - Current Medication List Current Medications: Active Medications Acetaminophen (Tylenol -) 650 mg PO Q4H PRN PRN Reason: FEVER Last Admin: 09/08/19 18:00 Dose: 650 mg Atorvastatin Calcium (Lipitor -) 40 mg PO HS [facility] Last Admin: 09/09/19 22:36 Dose: 40 mg Clopidogrel Bisulfate (Plavix -) 75 mg PO DAILY [facility] Last Admin: 09/10/19 11:28 Dose: Not Given Donepezil HCl (Aricept -) 5 mg PO DAILY [facility] Last Admin: 09/10/19 11:28 Dose: Not Given Doxycycline Hyclate (Vibramycin -) 100 mg PO BID@1000,1800 [facility] Last Admin: 09/09/19 18:32 Dose: Not Given Ezetimibe (Zetia -) 10 mg PO HS [facility] Last Admin: 09/09/19 22:36 Dose: 10 mg Heparin Sodium (Porcine) (Heparin -) 5,000 unit SQ TID [facility] Last Admin: 09/10/19 06:29 Dose: 5,000 unit Sodium Chloride (1/2 Normal Saline) 1,000 mls @ 42 mls/hr IV ASDIR [facility] Insulin Aspart (Novolog Vial Sliding Scale -) 1 vial SQ ACHS [facility]; Protocol Last Admin: 09/10/19 06:29 Dose: 10 units Insulin Aspart (Novolog Vial) 2 units SQ ACLD [facility] Insulin Detemir (Levemir Vial) 22 units SQ AM [facility] Nebivolol (Bystolic -) 2.5 mg PO [facility] Last Admin: 09/09/19 22:36 Dose: 2.5 mg Nystatin (Nystop Powder -) 1 applic TP BID [facility] Last Admin: 09/10/19 11:28 Dose: Not Given Tamsulosin HCl (Flomax -) 0.4 mg PO DAILY@0830 [facility] Last Admin: 09/10/19 11:28 Dose: Not Given - Objective Vital Signs: Vital Signs Temperature 98.8 F 09/10/19 06:00 Pulse Rate 69 09/10/19 06:00 Respiratory Rate 20 09/10/19 07:35 Blood Pressure 124/62 09/10/19 06:00 O2 Sat by Pulse Oximetry (%) 98 09/03/19 09:00 Constitutional: Yes: Calm, Anxious Cardiovascular: Yes: S1, S2 Respiratory: Yes: Regular, CTA Bilaterally Gastrointestinal: Yes: Normal Bowel Sounds, Soft Genitourinary: Yes: Strong Present, Other (hematuria) Musculoskeletal: Yes: WNL Extremities: Yes: Other Neurological: Yes: Alert, Other Psychiatric: Yes: Other Labs: CBC, BMP 09/10/19 09:45 09/10/19 09:45 INR, PTT INR 1.15 (0.83-1.09) H 09/01/19 21:00 Assessment/Plan 79 year old man with a history of HTN, hyperlipidemia, CAD, AL, CABG, chronic diastolic heart failure, type 2 DM, stage 3 CKD, COPD, dementia who presented to the ED with altered mental status. 1. Acute metabolic encephalopathy 2. Acute kidney injury 3. Abdominal pain 4. UTI 5. Lactic acidosis 6. Hypernatremia 7. Hypophosphatemia 8. HTN 9. Hyperlipidemia 10. CAD, history of AL, CABG 11. Chronic diastolic heart failure 12. Stage 3 CKD 13. COPD 14. Alzheimer dementia plan continue current mgmt monitor rest as per the team
[2019-09-10] MEDS: DOXYCYCLINE HYCLATE 100 MG CAPSULE PO SCH (11:54)
[2019-09-10] MEDS: INSULIN (NOVOLOG) ASPART 100 UNITS/ML 10ML VIAL SQ SCH ×2 (12:24→16:12)
[2019-09-10 12:48] LABS: N-TERMINAL BNP 1937.4 pg/ml (5-450)
[2019-09-10] MEDS ORDERED: INSULIN (NOVOLOG) ASPART 100 UNITS/ML 10ML VIAL SQ ONE (13:45)
[2019-09-10] MEDS ORDERED: VANCOMYCIN 1 GM in D5W (PRE-DOCKED) 1,000 MG/250 ML IVPB ONE (13:45)
[2019-09-10] MEDS ORDERED: PIPERACILLIN/TAZOB 3.375 GM 3.375 GM in DEXTROSE 5%-WATER - 50 ML IVPB ONE (13:45)
--- NOTE | 2019-09-10 15:27 | ECHO ---
Name: CHELSI JON Exam:Adult Echocardiogram Study Date: 09/10/2019 02:36 PM Age: 79 yrs Height: 60 in Weight: 138 lb BSA: 1.6 m2 MMode/2D Measurements & Calculations IVSd: 1.2 cm Ao root diam: 3.1 cm LVIDd: 4.1 cm LA dimension: 4.1 cm LVIDs: 3.0 cm LVPWd: 1.1 cm LVPWs: 1.9 cm EDV(Teich): 75.4 ml ESV(Teich): 36.0 ml LVOT diam: 1.9 cm RV S Will: 7.1 cm/sec Doppler Measurements & Calculations MV E max will: 88.8 cm/sec Ao V2 max: 164.2 cm/sec MV A max will: 116.5 cm/sec Ao max P.9 mmHg MV E/A: 0.76 Ao V2 mean: 131.9 cm/sec MV dec time: 0.27 sec Ao mean P.6 mmHg Ao V2 VTI: 35.8 cm GENNY(I,D): 1.4 cm2 GENNY(V,D): 1.3 cm2 LV V1 max P.5 mmHg SV(LVOT): 48.7 ml LV V1 mean P.6 mmHg LV V1 max: 79.5 cm/sec LV V1 mean: 58.9 cm/sec LV V1 VTI: 17.8 cm PA V2 max: 123.5 cm/sec Med Peak E' Will: 4.4 cm/sec PA max P.1 mmHg Med E/e': 20.3 Lat Peak E' Will: 7.5 cm/sec Lat E/e': 11.8 Procedure The study was technically adequate with some images being suboptimal in quality. Left Ventricle There is mild concentric left ventricular hypertrophy. The left ventricular ejection fraction is norm al. Ejection Fraction = 55%. Grade I diastolic dysfunction, (abnormal relaxation pattern). Right Ventricle The right ventricle is normal in size and function. Atria The left atrium is mildly dilated. Right atrial size is normal. Mitral Valve There is moderate mitral valve thickening. There is no mitral valve stenosis. There is trace mitral regurgitation. Tricuspid Valve The tricuspid valve is normal in structure and function. There was insufficient TR detected to calcul ate RV systolic pressure. Aortic Valve There is mild aortic sclerosis.;. The aortic valve is trileaflet. No hemodynamically significant valv ular aortic stenosis. Pulmonic Valve The pulmonic valve is not well seen, but is grossly normal. Great Vessels The aortic root is normal size. Pericardium/Pleura There is no pericardial effusion. Interpretation Summary There is mild concentric left ventricular hypertrophy. The left ventricular ejection fraction is normal. Grade I diastolic dysfunction, (abnormal relaxation pattern). The right ventricle is normal in size and function. There is mild aortic sclerosis.; No hemodynamically significant valvular aortic stenosis. Jake Kirby 09/10/2019 03:26 PM
[2019-09-10] MEDS ORDERED: SODIUM ZIRCONIUM CYCLOSILICATE (LOKELMA) 5 GM PACKET PO ONE (15:38)
--- NOTE | 2019-09-10 15:38 | PN ---
Progress Note, Physician History of Present Illness: Pt seen and examined at bedside. Events noted. He appears comfortable. - Current Medication List Current Medications: Active Medications Acetaminophen (Tylenol -) 650 mg PO Q4H PRN PRN Reason: FEVER Last Admin: 09/08/19 18:00 Dose: 650 mg Atorvastatin Calcium (Lipitor -) 40 mg PO HS [facility] Last Admin: 09/09/19 22:36 Dose: 40 mg Clopidogrel Bisulfate (Plavix -) 75 mg PO DAILY [facility] Last Admin: 09/10/19 11:28 Dose: Not Given Donepezil HCl (Aricept -) 5 mg PO DAILY [facility] Last Admin: 09/10/19 11:28 Dose: Not Given Ezetimibe (Zetia -) 10 mg PO HS [facility] Last Admin: 09/09/19 22:36 Dose: 10 mg Heparin Sodium (Porcine) (Heparin -) 5,000 unit SQ TID [facility] Last Admin: 09/10/19 15:17 Dose: Not Given Sodium Chloride (1/2 Normal Saline) 1,000 mls @ 42 mls/hr IV ASDIR [facility] Insulin Aspart (Novolog Vial Sliding Scale -) 1 vial SQ ACHS [facility]; Protocol Last Admin: 09/10/19 12:23 Dose: 12 units Insulin Aspart (Novolog Vial) 2 units SQ ACLD [facility] Last Admin: 09/10/19 12:24 Dose: 2 units Insulin Detemir (Levemir Vial) 22 units SQ AM [facility] Nebivolol (Bystolic -) 2.5 mg PO HS [facility] Last Admin: 09/09/19 22:36 Dose: 2.5 mg Nystatin (Nystop Powder -) 1 applic TP BID [facility] Last Admin: 09/10/19 11:28 Dose: Not Given Tamsulosin HCl (Flomax -) 0.4 mg PO DAILY@0830 [facility] Last Admin: 09/10/19 11:28 Dose: Not Given - Objective Vital Signs: Vital Signs Temperature 98 F 09/10/19 10:00 Pulse Rate 86 09/10/19 10:00 Respiratory Rate 18 09/10/19 10:00 Blood Pressure 135/101 H 09/10/19 10:00 O2 Sat by Pulse Oximetry (%) 98 09/03/19 09:00 Eyes: Yes: Other (legaly blind) Cardiovascular: Yes: S1, S2 Respiratory: Yes: CTA Bilaterally Gastrointestinal: Yes: Soft Genitourinary: Yes: Strong Present Musculoskeletal: Yes: WNL Edema: No Integumentary: Yes: WNL Neurological: Yes: Confusion Labs: CBC, BMP 09/10/19 09:45 09/10/19 09:45 INR, PTT INR 1.15 (0.83-1.09) H 09/01/19 21:00 Problem List - Problems (1) KIKI (acute kidney injury) Code(s): N17.9 - ACUTE KIDNEY FAILURE, UNSPECIFIED (2) DKA (diabetic ketoacidoses) Code(s): E11.10 - TYPE 2 DIABETES MELLITUS WITH KETOACIDOSIS WITHOUT COMA Qualifiers: Diabetes mellitus type: type 2 Diabetes mellitus complication detail: without coma Qualified Code(s): E11.10 - Type 2 diabetes mellitus with ketoacidosis without coma (3) Acute renal failure Code(s): N17.9 - ACUTE KIDNEY FAILURE, UNSPECIFIED (4) Hypernatremia Code(s): E87.0 - HYPEROSMOLALITY AND HYPERNATREMIA Assessment/Plan Impression 1. KIKI 2. DKA 3. hypernatremia 4. DM 5. dementia 6. cad 7. hyperkalemia Plan - low potassium diet - glucose not controlled - will need more compliance with diet as well - monitor lytes - will give a dose of lokelma Current Medications Generic Name Dose Route Start Last Admin Trade Name Freq PRN Reason Stop Dose Admin Acetaminophen 650 mg 09/04/19 10:34 09/08/19 18:00 Tylenol - PO 650 mg Q4H PRN Administration FEVER Atorvastatin Calcium 40 mg 09/02/19 22:00 09/09/19 22:36 Lipitor - PO 40 mg HS [facility] Administration Clopidogrel Bisulfate 75 mg 09/03/19 10:00 09/10/19 11:28 Plavix - PO Not Given DAILY [facility] Donepezil HCl 5 mg 09/04/19 10:00 09/10/19 11:28 Aricept - PO Not Given DAILY [facility] Ezetimibe 10 mg 09/02/19 22:00 09/09/19 22:36 Zetia - PO 10 mg HS [facility] Administration Heparin Sodium (Porcine) 5,000 unit 09/02/19 22:00 09/10/19 15:17 Heparin - SQ Not Given TID [facility] Sodium Chloride 1,000 mls @ 42 mls/hr 10/14/19 20:45 1/2 Normal Saline IV ASDIR [facility] Insulin Aspart 1 vial 09/05/19 00:52 09/10/19 12:23 Novolog Vial Sliding Scale - SQ 12 units ACHS [facility] Administration Protocol Insulin Aspart 2 units 09/10/19 11:30 09/10/19 12:24 Novolog Vial SQ 2 units ACLD [facility] Administration Insulin Detemir 22 units 09/11/19 07:00 Levemir Vial SQ AM [facility] Nebivolol 2.5 mg 09/02/19 22:00 09/09/19 22:36 Bystolic - PO 2.5 mg HS [facility] Administration Nystatin 1 applic 09/05/19 11:30 09/10/19 11:28 Nystop Powder - TP Not Given BID [facility] Tamsulosin HCl 0.4 mg 09/03/19 08:30 09/10/19 11:28 Flomax - PO Not Given DAILY@0830 [facility]
--- NOTE | 2019-09-10 15:39 | PN ---
Progress Note (short form) - Note Progress Note: UROLOGY NOTE. PT. WITH URINARY RETENTION AND OVERFLOW INCONTENENCE. BROUSSARD D/C TODAY WILL REPEAT BLADDER SONO IN PM.
[2019-09-10] MEDS: SODIUM CHLORIDE 0.45% 1,000 ML IV SCH ×2 (16:07→22:23)
[2019-09-10] MEDS ORDERED: PIPERACILLIN/TAZOBACTAM 3.375 GM VIAL IVPB ONE (16:14)
[2019-09-10] MEDS ORDERED: DEXTROSE 5%-WATER - 50 ML IVPB ONE (16:15)
--- NOTE | 2019-09-10 17:36 | CONS ---
DATE OF CONSULTATION: DATE OF DICTATION: 09/10/2019 HISTORY OF PRESENT ILLNESS: The patient is a 79-year-old male admitted via the emergency room on September 01, 2019, with diabetic ketoacidosis. Patient does have history of diabetes, coronary artery disease. He is status post coronary artery bypass graft, had an KS in 1997, had history of congestive heart failure, chronic kidney disease, COPD, and dementia. He came to the emergency room because of a change in mental status. Patient according to his son has always had urinary incontinence and wears an adult diaper. In the emergency room, his blood sugars were greater than 600, and patient was treated with IV fluids as well as IV insulin. A Strong catheter placed at the time revealed 700 mL of clear urine. The patient also had a urine culture which grew out strep as well as staphylococcus aureus. Patient's CAT scan on day of admission revealed a distended bladder and bilateral fullness of the collecting system, there was a paraumbilical hernia with no stranding. There was also a hiatal hernia, bilateral renal cyst. This is all indicative of bladder outlet obstruction secondary to prostate enlargement. Patient has had the Strong catheter since admission. Strong catheter was removed this morning and presently the patient is dripping urine into an adult diaper but his bladder appears to be distended. Will recommend a bladder scan if there is more than 500 mL of residual urine. Will recommend a Strong catheter. The patient is on no medication for his prostate. Will start him on Proscar. He is presently on Flomax 0.4 mg daily. Will follow with you. Idris [id number]
[2019-09-10 17:42] LABS: BLOOD UREA NITROGEN 26.2 mg/dL (7-18); CREATININE 1.3 mg/dL (0.55-1.3); POTASSIUM 5.1 mmol/L (3.5-5.1)
[2019-09-10 18:31] LABS: HYALINE CASTS 30 /lpf (0-8); URINE APPEARANCE TURBID; URINE BACTERIA 0.5 /hpf (NEGATIVE); URINE BILIRUBIN 2+ (NEGATIVE); URINE COLOR RED; URINE GLUCOSE (UA) 3+ (NEGATIVE); URINE KETONE NEGATIVE (NEGATIVE); URINE LEUK ESTERASE 2+ (NEGATIVE); URINE NITRITE POSITIVE (NEGATIVE); URINE PROTEIN 2+ (NEGATIVE); URINE RBC 6866 /hpf (0-4); URINE UROBILINOGEN 0.2 mg/dL (0.2-1.0); URINE WBC 78 /hpf (0-5)
[2019-09-10] MEDS ORDERED: PT OWN MED DRAWER 7, Y5N ONE (20:38)
[2019-09-10] MEDS: EZETIMIBE 10 MG TABLET (FP) PO SCH (22:24)
[2019-09-10] MEDS: NEBIVOLOL 2.5 MG TABLET (FP) PO SCH (22:24)
[2019-09-10] MEDS: ATORVASTATIN CA 40 MG TABLET (FP) PO SCH (22:24)
[2019-09-11] MEDS ORDERED: PIPERACILLIN/TAZOB 3.375 GM 3.375 GM in DEXTROSE 5%-WATER - 50 ML IVPB ONE (00:56)
--- NOTE | 2019-09-11 01:04 | PN ---
Progress Note (short form) - Note Progress Note: house calls nurse practitioner resident asked to assess patient regarding urinalysis findings, and pulmonary congestion. Vitals: BP 124/79 mmHg HR 66 BPM RR 12 BPM O2 saturation 98% room air Exam General: Patient alert oriented to self, resting comfortably in no acute distress. Pulmonary: Faint crackles auscultated bilateral lower lung lobes right > left. Negative respiratory distress. Cardiac: S1, S2, no murmurs, rubs, gallops Abdominal: soft, nontender, nondistended. Bowel sounds auscultated X4 quadrants. Extremities: 2+ pulses bilaterally. Negative edema bilateral lower extremities. Plan: Urinalysis findings noted; antibiotic coverage broadened from Doxycycline to Vancomycin, Zosyn earlier today. Per Urology note, will discontinue arguello catheter, and allow for trial of voiding (patient's nurse informs me that current arguello catheter is same catheter since admission). If evidence of significant urinary retention ( greater than 500cc) will need to place new arguello catheter. Will cover with additional dose of Zosyn, and follow ID recommendations. Case discussed with Urology (Dr. Morris) who agrees in continuing current regimen, and plan. Will administer Lasix 20mg IV given hemodynamics, for pulmonary congestion. Fingerstick blood glucose noted 388 mg/dL, and was given 10 units insulin Novolog per sliding scale Repeat fingerstick blood glucose at 242 mg/dL. Will administer 5 units insulin Novolog one time dose to ensure appropriate coverage.
[2019-09-11] MEDS ORDERED: FUROSEMIDE 40 MG/4 ML INJECTABLE VIAL IVPUSH ONE ×2 (02:00→08:45)
[2019-09-11] MEDS ORDERED: DEXTROSE 5%-WATER - 50 ML IVPB ONE (02:31)
[2019-09-11] MEDS ORDERED: PIPERACILLIN/TAZOBACTAM 3.375 GM VIAL IVPB ONE (02:31)
[2019-09-11] MEDS ORDERED: INSULIN (NOVOLOG) ASPART 100 UNITS/ML 10ML VIAL SQ ONE ×2 (02:56→18:50)
[2019-09-11] MEDS: INSULIN (LEVEMIR) 100 UNITS/ML UNITS SQ SCH (06:19)
[2019-09-11] MEDS: INSULIN SLIDING SCALE (NOVOLOG) 1 VIAL SQ SCH ×4 (06:20→21:43)
[2019-09-11] MEDS: HEPARIN NA (PORCINE) 5,000 UNITS/ML 1ML VIAL SQ SCH ×2 (06:20→14:16)
[2019-09-11] MEDS ORDERED: INSULIN (NOVOLOG) ASPART 100 UNITS/ML 10ML VIAL ONE (06:25)
[2019-09-11 07:46] LABS: ALBUMIN 2.5 g/dl (3.4-5.0); BILIRUBIN,TOTAL 0.7 mg/dL (0.2-1); BLOOD UREA NITROGEN 22.7 mg/dL (7-18); CALCIUM 8.9 mg/dL (8.5-10.1); CREATININE 1.3 mg/dL (0.55-1.3); MAGNESIUM 2.4 mg/dL (1.8-2.4); POTASSIUM 4.5 mmol/L (3.5-5.1); TOT PROT 6.2 g/dl (6.4-8.2)
--- NOTE | 2019-09-11 08:36 | PN ---
<Hernesto Cook - Last Filed: 09/11/19 12:05> Physical Exam: Patient seen and examined. Agree with resident note as aside from as supplemented in my own documentation. Independently verified all historical and physical exam findings. Patient remains unable to provide a complete review of systems secondary to his underlying dementia. Physical therapy did see the patient yesterday but unfortunately, the patient was not able to participate in the visit secondary to his underlying dementia, pushing await the physical therapist further documentation. Is unknown if they used a cook helper vegetable. Overall, the patient will require continued monitoring on discharge , but given the prior denial and repeat denial with the indicated reasoning of his dementia being too progressed to tolerate physical therapy at rehab, I question if this will be able to be approved. Thus, we will work to get him home services and discuss overall goals of care with the family. VS, labs, imaging reviewed NAD, AAO, resting in bed RRR s1/2 no mgr Scattered crackles improved from yesterday, w. sym exp NT ND +BS CN2-12 wnl, no fnd At baseline without any acute agitation but will become upset when redirected and refuses some therapy. All labs and imaging noted Echo with Grade 1 DD CXR with some congestive changes A/P: Problems include: 1) DKA 2/2 issues with managing insulin pump, resolved 2) Uncontrolled DM *We continue to titrate up the patient's Levemir, increasing it to 22 units yesterday, he was improved to 150 in the morning. I suspect that his glucose was out of control intermittently due to the patient's family giving him sweets , juices, sodas, and other issues. We have instructed the family member who is doing so to stop doing this, but unfortunately she is demented and difficult to redirect. I spoke with nursing regarding this. We will continue the sliding scale, with 2 units pre-meal as well as fingerstick glucose checks. BMP without any gap. 3) NPH *Patient is not a candidate for a shunt. This likely is worsening his underlying acute dementia symptoms with his underlying chronic dementia. Neurology saw him. We uptitrated his Aricept to 10 and Lexapro to 10. I gave him a dose of 2 of Haldol this morning as he became very agitated when taking his pulse ox. He is redirectable 1 1 of the members of our staff who speaks his dialect is present and able to speak with him, but I will note that when his is present her communication is marred by underlying dementia and sometimes he will become even more upset if something is explained in a suboptimal manner. 4) Acute Cystitis with Hematuria *Patient was noted to have worsening hematuria yesterday. This could be due to him pulling on his Arguello versus him having uncontrolled glycemic values with worsening of his infection due to this and due to him refusing p.o. doxycycline. Medications were changed back to intravenous and I spoke with infectious disease. Due to the amount of hematuria with the potential for traumatic causation, I consulted urology who recommended flushing the Arguello and it was removed this morning. There is some clots, but he did not have any obstruction apparent and he was urinating normally today. We will repeat the bladder scan later today. 5) Urinary Obstruction *Likely secondary to BPH which was the initial cause for the Arguello. We increased the patient's tamsulosin to 0.4 twice daily and will start him on Proscar as well. Ultimate management deferred to urology consult. 6) KIKI on CKD-III, improved *Improved to resolve, underlying CKD likely secondary to diabetes mellitus being so uncontrolled. We will continue to monitor. He should follow-up with his doctor of podiatric medicine upon discharge. 7) Hx CAD s/p CABG *There is no documented history of any recent stents, etc. etc. that would necessitate the absolute use of Plavix. However the patient's hemoglobin went from 9-10, which does not endorse any worsening bleeding. Due to this, I will elect to continue it from now, and I will speak with resident team about obtaining more records so we can elucidate the patient's full cardiac history and discontinue this medication if indeed is not indicated. He is not having any chest pain or atypical cardiac symptoms are apparent to myself or nursing. 8) Underlying Dementia (documented as Alzheimer's Type) *Worsened by NPH and likely toxic metabolic encephalopathy due to the acute issues. Son tells me that he transfers and ambulates on his own. 9) Hx D-CHF 10) Lactic Acidosis, resolved 11) Hypernatremia, resolved 12) Hx HTN 13) Hx HLD 14) Hx COPD, no acute exacerbation Today's plan overall will be quite simple, we will follow-up the patient's new urine culture, we will follow-up ID recommendations and continue broad-spectrum coverage until we see if there is a new causative organism. Furthermore, we will monitor the bladder scan to ensure there is no obstruction. We will observe his urine output to see if indeed there is improvement from the Proscar in the extra tamsulosin. Records will be reviewed relating to the patient's coronary artery disease. I have asked case management to speak with his son regarding his overall mental status and placement of this patient. He is likely not a safe discharge home and will require placement or significant home services ATTENDING PHYSICIAN STATEMENT I saw and evaluated the patient. I reviewed the resident's note and discussed the case with the resident. I agree with the resident's findings and plan as documented. SUBJECTIVE: OBJECTIVE: ASSESSMENT AND PLAN: <Stevie Grubbs - Last Filed: 09/20/19 07:27> Physical Exam: SUBJECTIVE: Overnight events noted regarding arguello and insulin coverage. HPI limited due to patient's severe dementia/NPH OBJECTIVE: Vital Signs Period Temp Pulse Resp BP Sys/Poole Pulse Ox Last 24 Hr 97.8 F-98.7 F 66-86 18-20 124-139/50-101 PE: Gen: NAD, easily arousable Lungs: CTA b/l, no wheezes. On RA CARD: RRR no M/m/r ABD: Soft, Nt/ND, normoactive BS : Arguello catheter draining yellow urine Ext: No edema, pulses intact througout Laboratory Results - last 24 hr 09/10/19 09/10/19 09/10/19 09:45 09:45 12:22 WBC 9.4 RBC 3.64 L Hgb 10.5 L Hct 32.5 L MCV 89.3 MCH 28.9 MCHC 32.4 RDW 14.2 Plt Count 224 MPV 8.5 Sodium 137 Potassium 5.3 H Chloride 102 Carbon Dioxide 26 Anion Gap 9 BUN 23.9 H Creatinine 1.3 Est GFR (CKD-EPI)AfAm 60.15 Est GFR (CKD-EPI)NonAf 51.90 POC Glucometer 498 Random Glucose 442 H* Calcium 8.9 Magnesium Total Bilirubin AST ALT Alkaline Phosphatase B-Natriuretic Peptide 1937.4 H Total Protein Albumin Urine Color Urine Appearance Urine pH Ur Specific [place] Urine Protein Urine Glucose (UA) Urine Ketones Urine Blood Urine Nitrite Urine Bilirubin Urine Urobilinogen Ur Leukocyte Esterase Urine WBC (Auto) Urine RBC (Auto) Urine Casts (Auto) U Pathogenic Cast Auto U Epithel Cells (Auto) U Sm Round Cell (Auto) Urine Bacteria (Auto) 09/10/19 09/10/19 09/10/19 13:18 14:12 16:00 WBC RBC Hgb Hct MCV MCH MCHC RDW Plt Count MPV Sodium 139 Potassium 5.1 Chloride 105 Carbon Dioxide 28 Anion Gap 6 L BUN 26.2 H Creatinine 1.3 Est GFR (CKD-EPI)AfAm 60.15 Est GFR (CKD-EPI)NonAf 51.90 POC Glucometer 488 419 Random Glucose 283 H Calcium 9.0 Magnesium Total Bilirubin AST ALT Alkaline Phosphatase B-Natriuretic Peptide Total Protein Albumin Urine Color Urine Appearance Urine pH Ur Specific [place] Urine Protein Urine Glucose (UA) Urine Ketones Urine Blood Urine Nitrite Urine Bilirubin Urine Urobilinogen Ur Leukocyte Esterase Urine WBC (Auto) Urine RBC (Auto) Urine Casts (Auto) U Pathogenic Cast Auto U Epithel Cells (Auto) U Sm Round Cell (Auto) Urine Bacteria (Auto) 09/10/19 09/10/19 09/11/19 16:05 17:46 06:55 WBC RBC Hgb Hct MCV MCH MCHC RDW Plt Count MPV Sodium 143 Potassium 4.5 Chloride 107 Carbon Dioxide 30 Anion Gap 6 L BUN 22.7 H Creatinine 1.3 Est GFR (CKD-EPI)AfAm 60.15 Est GFR (CKD-EPI)NonAf 51.90 POC Glucometer 300 Random Glucose 152 H Calcium 8.9 Magnesium 2.4 Total Bilirubin 0.7 AST 20 ALT 30 Alkaline Phosphatase 112 B-Natriuretic Peptide Total Protein 6.2 L Albumin 2.5 L Urine Color Red Urine Appearance Turbid Urine pH No Result Required. Ur Specific [place] 1.024 Urine Protein 2+ H Urine Glucose (UA) 3+ H Urine Ketones Negative Urine Blood 2+ H Urine Nitrite Positive H Urine Bilirubin 2+ H Urine Urobilinogen 0.2 Ur Leukocyte Esterase 2+ H Urine WBC (Auto) 78 Urine RBC (Auto) 6866 Urine Casts (Auto) 30 U Pathogenic Cast Auto None seen U Epithel Cells (Auto) 15.0 U Sm Round Cell (Auto) None seen Urine Bacteria (Auto) 0.5 Active Medications Generic Name Dose Route Start Last Admin Trade Name Freq PRN Reason Stop Dose Admin Acetaminophen 650 mg 09/04/19 10:34 09/08/19 18:00 Tylenol - PO 650 mg Q4H PRN Administration FEVER Atorvastatin Calcium 40 mg 09/02/19 22:00 09/10/19 22:24 Lipitor - PO 40 mg HS [facility] Administration Clopidogrel Bisulfate 75 mg 09/03/19 10:00 09/10/19 11:28 Plavix - PO Not Given DAILY [facility] Donepezil HCl 10 mg 09/11/19 08:34 Aricept - PO DAILY [facility] Ezetimibe 10 mg 09/02/19 22:00 09/10/19 22:24 Zetia - PO 10 mg HS [facility] Administration Escitalopram Oxalate 10 mg 09/11/19 10:00 Lexapro Oral Solution - PO DAILY [facility] Furosemide 20 mg 09/11/19 08:45 Lasix Injection - IVPUSH 09/11/19 08:46 ONCE ONE Heparin Sodium (Porcine) 5,000 unit 09/02/19 22:00 09/11/19 06:20 Heparin - SQ 5,000 unit TID [facility] Administration Insulin Aspart 1 vial 09/05/19 00:52 09/11/19 06:20 Novolog Vial Sliding Scale - SQ 2 units ACHS [facility] Administration Protocol Insulin Aspart 2 units 09/10/19 11:30 09/10/19 16:12 Novolog Vial SQ 2 units ACLD [facility] Administration Insulin Detemir 22 units 09/11/19 07:00 09/11/19 06:19 Levemir Vial SQ 22 units AM [facility] Administration Nebivolol 2.5 mg 09/02/19 22:00 09/10/19 22:24 Bystolic - PO 2.5 mg HS [facility] Administration Nystatin 1 applic 09/05/19 11:30 09/10/19 22:33 Nystop Powder - TP Not Given BID [facility] Tamsulosin HCl 0.4 mg 09/11/19 08:45 Flomax - PO BID@0830,2200 [facility] ASSESSMENT/PLAN: BPH Acute on chronic kidney injury Acute cystitis DKA (resolved) Uncontrolled DM Normal pressure hydrocephalus CAD s/p CABG HFpEF Hx HTN Hx HLD COPD, not in exacerbation --Appreciate all application packaging consultant recommendations --F/u urine culture and await sensitivities --Pt broadened to Zosyn; to continue until bacterium identified --ID on board --Bladder scan today to r/o obstruction --Monitor UO --Continue Proscar 5mg qdaily --Continue Flomax 0.4mg BID --Avoid nephrotoxic agents --Glucose levels approaching target --Continue Levemir 22 units AM --Continue premeal Novolog 4U ACLD --Strict diabetic diet --Continue ISS for breakthrough coverage --Monitor glucose levels --Pt not candidate for shunting revolving around NPH. --Continue Aricept 10mg and Lexapro 10mg qdaily FEN: Fluids: PO Electrolyte abnormalities: None today Nutrition: Diabetic based diet PPX: DVT - scds Dispo: Cultures and broad-spectrum abx Case discussed with Dr. Joey Grubbs, DO - IM PGY-3 Visit type - Emergency Visit Emergency Visit: Yes ED Registration Date: 09/01/19 Care time: The patient presented to the Emergency Department on the above date and was hospitalized for further evaluation of their emergent condition. - New Patient This patient is new to me today: No - Critical Care Critical Care patient: No ATTENDING PHYSICIAN STATEMENT I saw and evaluated the patient. I reviewed the resident's note and discussed the case with the resident. I agree with the resident's findings and plan as documented. SUBJECTIVE: OBJECTIVE: ASSESSMENT AND PLAN:
[2019-09-11] MEDS ORDERED: HALOPERIDOL LACTATE 5 MG/ML IV ONE (09:30)
[2019-09-11] MEDS ORDERED: HALOPERIDOL LACTATE 5 MG/ML IM ONE (09:38)
[2019-09-11] MEDS: CLOPIDOGREL BISULFATE 75 MG TABLET (FP) PO SCH (10:25)
[2019-09-11] MEDS: NYSTATIN POWDER 100,000 UNITS/GM - 15 GM TOPICAL POWDER TP SCH ×2 (10:25→21:44)
[2019-09-11] MEDS: ESCITALOPRAM OXALATE 10 MG TABLET (FP) PO SCH (10:25)
[2019-09-11] MEDS: DONEPEZIL HCL 10 MG TABLET (FP) PO SCH (10:25)
[2019-09-11] MEDS: TAMSULOSIN HCL 0.4 MG CAP PO SCH ×3 (10:25→21:42)
[2019-09-11] MEDS: FINASTERIDE 5 MG TABLET (FP) PO SCH (10:28)
--- NOTE | 2019-09-11 11:39 | PN ---
Progress Note, Physician History of Present Illness: stable no new issues - Current Medication List Current Medications: Active Medications Acetaminophen (Tylenol -) 650 mg PO Q4H PRN PRN Reason: FEVER Last Admin: 09/08/19 18:00 Dose: 650 mg Atorvastatin Calcium (Lipitor -) 40 mg PO HS [facility] Last Admin: 09/10/19 22:24 Dose: 40 mg Clopidogrel Bisulfate (Plavix -) 75 mg PO DAILY [facility] Last Admin: 09/11/19 10:25 Dose: Not Given Donepezil HCl (Aricept -) 10 mg PO DAILY [facility] Last Admin: 09/11/19 10:25 Dose: 10 mg Ezetimibe (Zetia -) 10 mg PO HS [facility] Last Admin: 09/10/19 22:24 Dose: 10 mg Escitalopram Oxalate (Lexapro -) 10 mg PO DAILY [facility] Last Admin: 09/11/19 10:25 Dose: 10 mg Finasteride (Proscar -) 5 mg PO DAILY [facility] Last Admin: 09/11/19 10:28 Dose: 5 mg Heparin Sodium (Porcine) (Heparin -) 5,000 unit SQ TID [facility] Last Admin: 09/11/19 06:20 Dose: 5,000 unit Insulin Aspart (Novolog Vial Sliding Scale -) 1 vial SQ ACHS [facility]; Protocol Last Admin: 09/11/19 06:20 Dose: 2 units Insulin Aspart (Novolog Vial) 2 units SQ ACLD [facility] Last Admin: 09/10/19 16:12 Dose: 2 units Insulin Detemir (Levemir Vial) 22 units SQ AM [facility] Last Admin: 09/11/19 06:19 Dose: 22 units Nebivolol (Bystolic -) 2.5 mg PO HS [facility] Last Admin: 09/10/19 22:24 Dose: 2.5 mg Nystatin (Nystop Powder -) 1 applic TP BID [facility] Last Admin: 09/11/19 10:25 Dose: 1 applic Tamsulosin HCl (Flomax -) 0.4 mg PO BID@0830,2200 [facility] Last Admin: 09/11/19 10:25 Dose: 0.4 mg - Objective Vital Signs: Vital Signs Temperature 97.8 F 09/11/19 06:00 Pulse Rate 81 09/11/19 10:00 Respiratory Rate 20 09/11/19 10:00 Blood Pressure 151/72 09/11/19 10:00 O2 Sat by Pulse Oximetry (%) 98 09/03/19 09:00 Constitutional: Yes: No Distress, Calm Cardiovascular: Yes: S1, S2 Respiratory: Yes: Regular, CTA Bilaterally Gastrointestinal: Yes: Normal Bowel Sounds, Soft Musculoskeletal: Yes: WNL Extremities: Yes: WNL Neurological: Yes: Alert Psychiatric: Yes: Alert Labs: CBC, BMP 09/10/19 09:45 09/11/19 06:55 INR, PTT INR 1.15 (0.83-1.09) H 09/01/19 21:00 Assessment/Plan 79 year old man with a history of HTN, hyperlipidemia, CAD, PA, CABG, chronic diastolic heart failure, type 2 DM, stage 3 CKD, COPD, dementia who presented to the ED with altered mental status. 1. Acute metabolic encephalopathy 2. Acute kidney injury 3. Abdominal pain 4. UTI 5. Lactic acidosis 6. Hypernatremia 7. Hypophosphatemia 8. HTN 9. Hyperlipidemia 10. CAD, history of PA, CABG 11. Chronic diastolic heart failure 12. Stage 3 CKD 13. COPD 14. Alzheimer dementia plan continue current mgmt monitor rest as per the team
[2019-09-11] MEDS: INSULIN (NOVOLOG) ASPART 100 UNITS/ML 10ML VIAL SQ SCH ×2 (12:22→17:13)
--- NOTE | 2019-09-11 13:31 | PN ---
Progress Note, Physician History of Present Illness: Pt seen and examined at bedside. He is awake and appears comfortable. - Current Medication List Current Medications: Active Medications Acetaminophen (Tylenol -) 650 mg PO Q4H PRN PRN Reason: FEVER Last Admin: 09/08/19 18:00 Dose: 650 mg Atorvastatin Calcium (Lipitor -) 40 mg PO HS [facility] Last Admin: 09/10/19 22:24 Dose: 40 mg Clopidogrel Bisulfate (Plavix -) 75 mg PO DAILY [facility] Last Admin: 09/11/19 10:25 Dose: Not Given Donepezil HCl (Aricept -) 10 mg PO DAILY [facility] Last Admin: 09/11/19 10:25 Dose: 10 mg Ezetimibe (Zetia -) 10 mg PO HS [facility] Last Admin: 09/10/19 22:24 Dose: 10 mg Escitalopram Oxalate (Lexapro -) 10 mg PO DAILY [facility] Last Admin: 09/11/19 10:25 Dose: 10 mg Finasteride (Proscar -) 5 mg PO DAILY [facility] Last Admin: 09/11/19 10:28 Dose: 5 mg Heparin Sodium (Porcine) (Heparin -) 5,000 unit SQ TID [facility] Last Admin: 09/11/19 06:20 Dose: 5,000 unit Insulin Aspart (Novolog Vial Sliding Scale -) 1 vial SQ ACHS [facility]; Protocol Last Admin: 09/11/19 12:21 Dose: 8 units Insulin Aspart (Novolog Vial) 2 units SQ ACLD [facility] Last Admin: 09/11/19 12:22 Dose: 2 units Insulin Detemir (Levemir Vial) 22 units SQ AM [facility] Last Admin: 09/11/19 06:19 Dose: 22 units Nebivolol (Bystolic -) 2.5 mg PO HS [facility] Last Admin: 09/10/19 22:24 Dose: 2.5 mg Nystatin (Nystop Powder -) 1 applic TP BID [facility] Last Admin: 09/11/19 10:25 Dose: 1 applic Tamsulosin HCl (Flomax -) 0.4 mg PO BID@0830,2200 [facility] Last Admin: 09/11/19 10:25 Dose: 0.4 mg - Objective Vital Signs: Vital Signs Temperature 97.8 F 09/11/19 06:00 Pulse Rate 81 09/11/19 10:00 Respiratory Rate 20 09/11/19 10:00 Blood Pressure 151/72 09/11/19 10:00 O2 Sat by Pulse Oximetry (%) 98 09/03/19 09:00 Constitutional: Yes: Calm Eyes: Yes: Other (legaly blind) HENT: Yes: Atraumatic Neck: Yes: Supple Cardiovascular: Yes: S1, S2 Genitourinary: Yes: Hematuria, Incontinence. No: Arguello Present Musculoskeletal: Yes: WNL Edema: LLE: Trace, RLE: Trace Neurological: Yes: Confusion Labs: CBC, BMP 09/10/19 09:45 09/11/19 06:55 INR, PTT INR 1.15 (0.83-1.09) H 09/01/19 21:00 Problem List - Problems (1) KIKI (acute kidney injury) Code(s): N17.9 - ACUTE KIDNEY FAILURE, UNSPECIFIED (2) DKA (diabetic ketoacidoses) Code(s): E11.10 - TYPE 2 DIABETES MELLITUS WITH KETOACIDOSIS WITHOUT COMA Qualifiers: Diabetes mellitus type: type 2 Diabetes mellitus complication detail: without coma Qualified Code(s): E11.10 - Type 2 diabetes mellitus with ketoacidosis without coma (3) Acute renal failure Code(s): N17.9 - ACUTE KIDNEY FAILURE, UNSPECIFIED (4) Hypernatremia Code(s): E87.0 - HYPEROSMOLALITY AND HYPERNATREMIA Assessment/Plan Current Medications Generic Name Dose Route Start Last Admin Trade Name Freq PRN Reason Stop Dose Admin Acetaminophen 650 mg 09/04/19 10:34 09/08/19 18:00 Tylenol - PO 650 mg Q4H PRN Administration FEVER Atorvastatin Calcium 40 mg 09/02/19 22:00 09/10/19 22:24 Lipitor - PO 40 mg HS [facility] Administration Clopidogrel Bisulfate 75 mg 09/03/19 10:00 09/11/19 10:25 Plavix - PO Not Given DAILY [facility] Donepezil HCl 10 mg 09/11/19 10:00 09/11/19 10:25 Aricept - PO 10 mg DAILY [facility] Administration Ezetimibe 10 mg 09/02/19 22:00 09/10/19 22:24 Zetia - PO 10 mg HS [facility] Administration Escitalopram Oxalate 10 mg 09/11/19 10:00 09/11/19 10:25 Lexapro - PO 10 mg DAILY [facility] Administration Finasteride 5 mg 10/16/19 10:00 09/11/19 10:28 Proscar - PO 5 mg DAILY [facility] Administration Heparin Sodium (Porcine) 5,000 unit 09/02/19 22:00 09/11/19 06:20 Heparin - SQ 5,000 unit TID [facility] Administration Insulin Aspart 1 vial 09/05/19 00:52 09/11/19 12:21 Novolog Vial Sliding Scale - SQ 8 units ACHS [facility] Administration Protocol Insulin Aspart 2 units 09/10/19 11:30 09/11/19 12:22 Novolog Vial SQ 2 units ACLD [facility] Administration Insulin Detemir 22 units 09/11/19 07:00 09/11/19 06:19 Levemir Vial SQ 22 units AM [facility] Administration Nebivolol 2.5 mg 09/02/19 22:00 09/10/19 22:24 Bystolic - PO 2.5 mg HS [facility] Administration Nystatin 1 applic 09/05/19 11:30 09/11/19 10:25 Nystop Powder - TP 1 applic BID [facility] Administration Tamsulosin HCl 0.4 mg 09/11/19 08:45 09/11/19 10:25 Flomax - PO 0.4 mg BID@0830,2200 [facility] Administration Impression 1. KIKI 2. DKA 3. hypernatremia 4. DM 5. dementia 6. cad 7. hyperkalemia Plan - potassium is improved - renal function stable - urology follow up for hematuria - arguello removed - monitor blood sugar
[2019-09-11 20:40] LABS: HEMATOCRIT 26.3 % (35.4-49); HEMOGLOBIN 8.7 GM/dL (11.7-16.9); MCH 29.6 pg (25.7-33.7); MCHC 33.1 g/dl (32.0-35.9); MEAN CELL VOLUME 89.2 fl (80-96); MEAN PLT VOLUME 8.2 fl (7.5-11.1); PLATELET COUNT 252 K/MM3 (134-434); RBC 2.95 M/mm3 (4.00-5.60); RDW 14.3 % (11.9-15.9); WHITE BLOOD COUNT 10.2 K/mm3 (4.0-10.0)
[2019-09-11 21:27] LABS: CALCIUM 8.7 mg/dL (8.5-10.1); CREATININE 1.5 mg/dL (0.55-1.3); POTASSIUM 4.8 mmol/L (3.5-5.1)
[2019-09-11] MEDS: ATORVASTATIN CA 40 MG TABLET (FP) PO SCH (21:42)
[2019-09-11] MEDS: EZETIMIBE 10 MG TABLET (FP) PO SCH (21:42)
[2019-09-11] MEDS: NEBIVOLOL 2.5 MG TABLET (FP) PO SCH (21:42)
[2019-09-12] MEDS: INSULIN (LEVEMIR) 100 UNITS/ML UNITS SQ SCH (06:21)
[2019-09-12] MEDS: INSULIN SLIDING SCALE (NOVOLOG) 1 VIAL SQ SCH ×4 (06:21→21:54)
--- NOTE | 2019-09-12 07:26 | PN ---
Physical Exam: SUBJECTIVE: Patient seen and examined; had urinary retention this AM. Saw patient in PM with intermittent bloody urine streams after +bladder scan earlier. Likely clot blocking. Off all AC, SCDs for DVT px. Urology contacted and I spoke to Dr. Morris. May need cbi Abx per ID, continuing to taper insulin-nursing has been successful in stopping family from giving additional sweets. No records from other hospitals locally per [facility] centers of note Prior records reviewed extensively, has been on plavix since 2016. Given chronic use with otherwise no recent stenting, it is reasonable to hold plavix at this time given the dropping in Hb with hematuria CBC in PM and rechecking type and cross. 10 sys ROS not feasable OBJECTIVE: Vital Signs Period Temp Pulse Resp BP Sys/Poole Pulse Ox Last 24 Hr 97.8 F-98.4 F 67-95 20-20 108-151/53-78 GENERAL: The patient is awake, alert, and fully oriented, in no acute distress. HEAD: Normal with no signs of trauma. EYES: PERRL, extraocular movements intact, sclera anicteric, conjunctiva clear. No ptosis. ENT: Ears normal, nares patent, oropharynx clear without exudates, moist mucous membranes. NECK: Trachea midline, full range of motion, supple. LUNGS: Breath sounds equal, clear to auscultation bilaterally, no wheezes, no crackles, no accessory muscle use. HEART: Regular rate and rhythm, S1, S2 without murmur, rub or gallop. : Arguello inserted with hematuria noted. ABDOMEN: Soft, nontender, nondistended, normoactive bowel sounds, no guarding, no rebound, no hepatosplenomegaly, no masses. EXTREMITIES: 2+ pulses, warm, well-perfused, no edema. NEUROLOGICAL: Cranial nerves II through XII grossly unchanged; no new fnd. PSYCH: Confused, somewhat combative during arguello insertion, no active hallucinations, etc. SKIN: Warm, dry, normal turgor, no rashes or lesions noted Laboratory Results - last 24 hr 09/10/19 09/10/19 09/11/19 22:17 23:57 06:14 WBC RBC Hgb Hct MCV MCH MCHC RDW Plt Count MPV Sodium Potassium Chloride Carbon Dioxide Anion Gap BUN Creatinine Est GFR (CKD-EPI)AfAm Est GFR (CKD-EPI)NonAf POC Glucometer 388 242 157 Random Glucose Calcium Magnesium Total Bilirubin AST ALT Alkaline Phosphatase Total Protein Albumin 09/11/19 09/11/19 09/11/19 06:55 11:18 16:38 WBC RBC Hgb Hct MCV MCH MCHC RDW Plt Count MPV Sodium 143 Potassium 4.5 Chloride 107 Carbon Dioxide 30 Anion Gap 6 L BUN 22.7 H Creatinine 1.3 Est GFR (CKD-EPI)AfAm 60.15 Est GFR (CKD-EPI)NonAf 51.90 POC Glucometer 313 455 Random Glucose 152 H Calcium 8.9 Magnesium 2.4 Total Bilirubin 0.7 AST 20 ALT 30 Alkaline Phosphatase 112 Total Protein 6.2 L Albumin 2.5 L 09/11/19 09/11/19 09/11/19 18:47 19:30 19:30 WBC 10.2 H RBC 2.95 L Hgb 8.7 L Hct 26.3 L D MCV 89.2 MCH 29.6 MCHC 33.1 RDW 14.3 Plt Count 252 MPV 8.2 Sodium 137 Potassium 4.8 Chloride 101 Carbon Dioxide 27 Anion Gap 8 BUN 28.0 H Creatinine 1.5 H Est GFR (CKD-EPI)AfAm 50.59 Est GFR (CKD-EPI)NonAf 43.65 POC Glucometer 505 Random Glucose 502 H* Calcium 8.7 Magnesium Total Bilirubin AST ALT Alkaline Phosphatase Total Protein Albumin 09/11/19 09/11/19 09/12/19 21:30 22:43 06:19 WBC RBC Hgb Hct MCV MCH MCHC RDW Plt Count MPV Sodium Potassium Chloride Carbon Dioxide Anion Gap BUN Creatinine Est GFR (CKD-EPI)AfAm Est GFR (CKD-EPI)NonAf POC Glucometer 402 322 242 Random Glucose Calcium Magnesium Total Bilirubin AST ALT Alkaline Phosphatase Total Protein Albumin Active Medications Generic Name Dose Route Start Last Admin Trade Name Freq PRN Reason Stop Dose Admin Acetaminophen 650 mg 09/04/19 10:34 09/08/19 18:00 Tylenol - PO 650 mg Q4H PRN Administration FEVER Atorvastatin Calcium 40 mg 09/02/19 22:00 09/11/19 21:42 Lipitor - PO 40 mg HS [facility] Administration Donepezil HCl 10 mg 09/11/19 10:00 09/11/19 10:25 Aricept - PO 10 mg DAILY [facility] Administration Ezetimibe 10 mg 09/02/19 22:00 09/11/19 21:42 Zetia - PO 10 mg HS [facility] Administration Escitalopram Oxalate 10 mg 09/11/19 10:00 09/11/19 10:25 Lexapro - PO 10 mg DAILY [facility] Administration Finasteride 5 mg 09/11/19 10:00 09/11/19 10:28 Proscar - PO 5 mg DAILY [facility] Administration Insulin Aspart 1 vial 09/05/19 00:52 09/12/19 06:21 Novolog Vial Sliding Scale - SQ 4 units ACHS [facility] Administration Protocol Insulin Aspart 2 units 09/10/19 11:30 09/11/19 17:13 Novolog Vial SQ 2 units ACLD [facility] Administration Insulin Detemir 22 units 09/11/19 07:00 09/12/19 06:21 Levemir Vial SQ 22 units AM [facility] Administration Nebivolol 2.5 mg 09/02/19 22:00 09/11/19 21:42 Bystolic - PO 2.5 mg HS [facility] Administration Nystatin 1 applic 09/05/19 11:30 09/11/19 21:44 Nystop Powder - TP 1 applic BID [facility] Administration Tamsulosin HCl 0.4 mg 09/11/19 08:45 09/11/19 21:42 Flomax - PO 0.4 mg BID@0830,2200 [facility] Administration VS, labs, imaging reviewed NAD, AAO, resting in bed RRR s1/2 no mgr Scattered crackles improved from yesterday, w. sym exp NT ND +BS CN2-12 wnl, no fnd At baseline without any acute agitation but will become upset when redirected and refuses some therapy. All labs and imaging noted Echo with Grade 1 DD CXR with some congestive changes ASSESSMENT/PLAN: As stated throughout last several notes, patient's DC was initially held due to insurance issue then he was found to develop nani hematuria with drop in Hb and hyperglycemia. Not clear if due to trauma or infection; discussed with subspecialty services and manage per urology. This has been a persisting issue , unfortunately, for this patient. Continue to monitor. DC held up multiple times by: -hematuria persisting -Lack of placement in facility with family appeal. Problems include: 1) DKA 2/2 issues with managing insulin pump, resolved-DC on SQ insulin 2) Uncontrolled DM *We continue to titrate up the patient's Levemir, increasing it to 22 units yesterday, he was improved to 150 in the morning. I suspect that his glucose was out of control intermittently due to the patient's family giving him sweets , juices, sodas, and other issues. We have instructed the family member who is doing so to stop doing this, but unfortunately she is demented and difficult to redirect. I spoke with nursing regarding this. We will continue the sliding scale, with 2 units pre-meal as well as fingerstick glucose checks. BMP without any gap. 3) NPH *Patient is not a candidate for a shunt. This likely is worsening his underlying acute dementia symptoms with his underlying chronic dementia. Neurology saw him. We uptitrated his Aricept to 10 and Lexapro to 10. I gave him a dose of 2 of Haldol this morning as he became very agitated when taking his pulse ox. He is redirectable 1 1 of the members of our staff who speaks his dialect is present and able to speak with him, but I will note that when his is present her communication is marred by underlying dementia and sometimes he will become even more upset if something is explained in a suboptimal manner. 4) Acute Cystitis with Hematuria *Patient was noted to have worsening hematuria yesterday. This could be due to him pulling on his Arguello versus him having uncontrolled glycemic values with worsening of his infection due to this and due to him refusing p.o. doxycycline. Medications were changed back to intravenous and I spoke with infectious disease. Due to the amount of hematuria with the potential for traumatic causation, I consulted urology who recommended flushing the Arguello and it was removed this morning. There is some clots, but he did not have any obstruction apparent and he was urinating normally today. We will repeat the bladder scan later today. 5) Urinary Obstruction *Likely secondary to BPH which was the initial cause for the Arguello. We increased the patient's tamsulosin to 0.4 twice daily and will start him on Proscar as well. Ultimate management deferred to urology consult. 6) KIKI on CKD-III, improved *Improved to resolve, underlying CKD likely secondary to diabetes mellitus being so uncontrolled. We will continue to monitor. He should follow-up with his director transition upon discharge. 7) Hx CAD s/p CABG *There is no documented history of any recent stents, etc. etc. that would necessitate the absolute use of Plavix. However the patient's hemoglobin went from 9-10, which does not endorse any worsening bleeding. Due to this, I will elect to continue it from now, and I will speak with resident team about obtaining more records so we can elucidate the patient's full cardiac history and discontinue this medication if indeed is not indicated. He is not having any chest pain or atypical cardiac symptoms are apparent to myself or nursing. 8) Underlying Dementia (documented as Alzheimer's Type) *Worsened by NPH and likely toxic metabolic encephalopathy due to the acute issues. Son tells me that he transfers and ambulates on his own. 9) Hx D-CHF 10) Lactic Acidosis, resolved 11) Hypernatremia, resolved 12) Hx HTN 13) Hx HLD 14) Hx COPD, no acute exacerbation Visit type - Emergency Visit Emergency Visit: Yes ED Registration Date: 09/01/19 Care time: The patient presented to the Emergency Department on the above date and was hospitalized for further evaluation of their emergent condition. - New Patient This patient is new to me today: No - Critical Care Critical Care patient: No
[2019-09-12 09:59] LABS: BASO % 0.9 % (0-2.0); EOS % 1.8 % (0-4.5); HEMATOCRIT 22.6 % (35.4-49); HEMOGLOBIN 7.7 GM/dL (11.7-16.9); LYMPH % 17.9 % (8-40); MCH 29.8 pg (25.7-33.7); MEAN CELL VOLUME 87.7 fl (80-96); MEAN PLT VOLUME 7.9 fl (7.5-11.1); MONO % 11.9 % (3.8-10.2); NEUT % 67.5 % (42.8-82.8); PLATELET COUNT 227 K/MM3 (134-434); RBC 2.58 M/mm3 (4.00-5.60); RDW 14.4 % (11.9-15.9); WHITE BLOOD COUNT 9.7 K/mm3 (4.0-10.0)
[2019-09-12 10:03] LABS: BLOOD UREA NITROGEN 23.3 mg/dL (7-18); CALCIUM 8.6 mg/dL (8.5-10.1); CREATININE 1.3 mg/dL (0.55-1.3); POTASSIUM 4.4 mmol/L (3.5-5.1)
[2019-09-12] MEDS: NYSTATIN POWDER 100,000 UNITS/GM - 15 GM TOPICAL POWDER TP SCH ×2 (10:38→21:51)
[2019-09-12] MEDS: ESCITALOPRAM OXALATE 10 MG TABLET (FP) PO SCH (10:38)
[2019-09-12] MEDS: FINASTERIDE 5 MG TABLET (FP) PO SCH (10:38)
[2019-09-12] MEDS: TAMSULOSIN HCL 0.4 MG CAP PO SCH ×2 (10:38→21:51)
[2019-09-12] MEDS: DONEPEZIL HCL 10 MG TABLET (FP) PO SCH (10:38)
[2019-09-12] MEDS: INSULIN (NOVOLOG) ASPART 100 UNITS/ML 10ML VIAL SQ SCH ×2 (11:41→17:57)
--- NOTE | 2019-09-12 12:39 | PN ---
Progress Note, Physician History of Present Illness: having urinary retention nani hematuria - Current Medication List Current Medications: Active Medications Acetaminophen (Tylenol -) 650 mg PO Q4H PRN PRN Reason: FEVER Last Admin: 09/08/19 18:00 Dose: 650 mg Atorvastatin Calcium (Lipitor -) 40 mg PO HS [facility] Last Admin: 09/11/19 21:42 Dose: 40 mg Donepezil HCl (Aricept -) 10 mg PO DAILY [facility] Last Admin: 09/12/19 10:38 Dose: 10 mg Ezetimibe (Zetia -) 10 mg PO HS [facility] Last Admin: 09/11/19 21:42 Dose: 10 mg Escitalopram Oxalate (Lexapro -) 10 mg PO DAILY [facility] Last Admin: 09/12/19 10:38 Dose: 10 mg Finasteride (Proscar -) 5 mg PO DAILY [facility] Last Admin: 09/12/19 10:38 Dose: 5 mg Insulin Aspart (Novolog Vial Sliding Scale -) 1 vial SQ ACHS [facility]; Protocol Last Admin: 09/12/19 11:41 Dose: 14 units Insulin Aspart (Novolog Vial) 4 units SQ ACLD [facility] Last Admin: 09/12/19 11:41 Dose: 4 units Insulin Detemir (Levemir Vial) 26 units SQ AM [facility] Nebivolol (Bystolic -) 2.5 mg PO [facility] Last Admin: 09/11/19 21:42 Dose: 2.5 mg Nystatin (Nystop Powder -) 1 applic TP BID [facility] Last Admin: 09/12/19 10:38 Dose: 1 applic Tamsulosin HCl (Flomax -) 0.4 mg PO BID@0830,2200 [facility] Last Admin: 09/12/19 10:38 Dose: 0.4 mg - Objective Vital Signs: Vital Signs Temperature 98.2 F 09/12/19 10:00 Pulse Rate 72 09/12/19 10:00 Respiratory Rate 20 09/12/19 10:00 Blood Pressure 106/68 09/12/19 10:00 O2 Sat by Pulse Oximetry (%) 98 09/03/19 09:00 Constitutional: Yes: Calm, Mild Distress Cardiovascular: Yes: Regular Rate and Rhythm Respiratory: Yes: Regular, CTA Bilaterally Gastrointestinal: Yes: Normal Bowel Sounds, Soft Musculoskeletal: Yes: WNL Extremities: Yes: WNL Neurological: Yes: Alert, Other (legally blind) Labs: CBC, BMP 09/12/19 09:03 09/12/19 09:03 INR, PTT INR 1.15 (0.83-1.09) H 09/01/19 21:00 Assessment/Plan 79 year old man with a history of HTN, hyperlipidemia, CAD, CA, CABG, chronic diastolic heart failure, type 2 DM, stage 3 CKD, COPD, dementia who presented to the ED with altered mental status. 1. Acute metabolic encephalopathy 2. Acute kidney injury 3. Abdominal pain 4. UTI 5. Lactic acidosis 6. Hypernatremia 7. Hypophosphatemia 8. HTN 9. Hyperlipidemia 10. CAD, history of CA, CABG 11. Chronic diastolic heart failure 12. Stage 3 CKD 13. COPD 14. Alzheimer dementia plan continue current mgmt monitor monitor for output urology to see he patient nephro on case rest as per the team
[2019-09-12] MEDS ORDERED: INSULIN (LEVEMIR) 100 UNITS/ML UNITS SQ ONE (14:15)
--- NOTE | 2019-09-12 14:28 | PN ---
Progress Note, Physician History of Present Illness: Pt seen and examined at bedside. He appears comfortable. He still has hematuria. - Current Medication List Current Medications: Active Medications Acetaminophen (Tylenol -) 650 mg PO Q4H PRN PRN Reason: FEVER Last Admin: 09/08/19 18:00 Dose: 650 mg Atorvastatin Calcium (Lipitor -) 40 mg PO HS [facility] Last Admin: 09/11/19 21:42 Dose: 40 mg Donepezil HCl (Aricept -) 10 mg PO DAILY [facility] Last Admin: 09/12/19 10:38 Dose: 10 mg Ezetimibe (Zetia -) 10 mg PO HS [facility] Last Admin: 09/11/19 21:42 Dose: 10 mg Escitalopram Oxalate (Lexapro -) 10 mg PO DAILY [facility] Last Admin: 09/12/19 10:38 Dose: 10 mg Finasteride (Proscar -) 5 mg PO DAILY [facility] Last Admin: 09/12/19 10:38 Dose: 5 mg Insulin Aspart (Novolog Vial Sliding Scale -) 1 vial SQ ACHS [facility]; Protocol Last Admin: 09/12/19 11:41 Dose: 14 units Insulin Aspart (Novolog Vial) 4 units SQ ACLD [facility] Last Admin: 09/12/19 11:41 Dose: 4 units Insulin Detemir (Levemir Vial) 26 units SQ AM [facility] Nebivolol (Bystolic -) 2.5 mg PO HS [facility] Last Admin: 09/11/19 21:42 Dose: 2.5 mg Nystatin (Nystop Powder -) 1 applic TP BID [facility] Last Admin: 09/12/19 10:38 Dose: 1 applic Tamsulosin HCl (Flomax -) 0.4 mg PO BID@0830,2200 [facility] Last Admin: 09/12/19 10:38 Dose: 0.4 mg - Objective Vital Signs: Vital Signs Temperature 98 F 09/12/19 14:08 Pulse Rate 74 09/12/19 14:08 Respiratory Rate 20 09/12/19 14:08 Blood Pressure 114/56 L 09/12/19 14:08 O2 Sat by Pulse Oximetry (%) 98 09/03/19 09:00 Constitutional: Yes: Calm HENT: Yes: Atraumatic Neck: Yes: Supple Cardiovascular: Yes: S1, S2 Respiratory: Yes: CTA Bilaterally Gastrointestinal: Yes: Normal Bowel Sounds, Soft Genitourinary: Yes: WNL Musculoskeletal: Yes: WNL Edema: Yes Edema: LLE: Trace, RLE: Trace Neurological: Yes: Confusion Labs: CBC, BMP 09/12/19 09:03 09/12/19 09:03 INR, PTT INR 1.15 (0.83-1.09) H 09/01/19 21:00 Problem List - Problems (1) KIKI (acute kidney injury) Code(s): N17.9 - ACUTE KIDNEY FAILURE, UNSPECIFIED (2) DKA (diabetic ketoacidoses) Code(s): E11.10 - TYPE 2 DIABETES MELLITUS WITH KETOACIDOSIS WITHOUT COMA Qualifiers: Diabetes mellitus type: type 2 Diabetes mellitus complication detail: without coma Qualified Code(s): E11.10 - Type 2 diabetes mellitus with ketoacidosis without coma (3) Acute renal failure Code(s): N17.9 - ACUTE KIDNEY FAILURE, UNSPECIFIED (4) Hypernatremia Code(s): E87.0 - HYPEROSMOLALITY AND HYPERNATREMIA Assessment/Plan Current Medications Generic Name Dose Route Start Last Admin Trade Name Freq PRN Reason Stop Dose Admin Acetaminophen 650 mg 09/04/19 10:34 09/08/19 18:00 Tylenol - PO 650 mg Q4H PRN Administration FEVER Atorvastatin Calcium 40 mg 09/02/19 22:00 09/11/19 21:42 Lipitor - PO 40 mg HS [facility] Administration Donepezil HCl 10 mg 09/11/19 10:00 09/12/19 10:38 Aricept - PO 10 mg DAILY [facility] Administration Ezetimibe 10 mg 09/02/19 22:00 09/11/19 21:42 Zetia - PO 10 mg HS [facility] Administration Escitalopram Oxalate 10 mg 09/11/19 10:00 09/12/19 10:38 Lexapro - PO 10 mg DAILY [facility] Administration Finasteride 5 mg 09/11/19 10:00 09/12/19 10:38 Proscar - PO 5 mg DAILY [facility] Administration Insulin Aspart 1 vial 09/05/19 00:52 09/12/19 11:41 Novolog Vial Sliding Scale - SQ 14 units ACHS [facility] Administration Protocol Insulin Aspart 4 units 09/12/19 07:28 09/12/19 11:41 Novolog Vial SQ 4 units ACLD [facility] Administration Insulin Detemir 26 units 09/12/19 07:27 Levemir Vial SQ AM [facility] Nebivolol 2.5 mg 09/02/19 22:00 09/11/19 21:42 Bystolic - PO 2.5 mg HS [facility] Administration Nystatin 1 applic 09/05/19 11:30 09/12/19 10:38 Nystop Powder - TP 1 applic BID [facility] Administration Tamsulosin HCl 0.4 mg 09/11/19 08:45 09/12/19 10:38 Flomax - PO 0.4 mg BID@0830,2200 [facility] Administration Impression 1. KIKI 2. DKA 3. hypernatremia 4. DM 5. dementia 6. cad 7. hyperkalemia Plan - renal function is improving - will need better glucose control - urology follow up for hematuria - monitor lytes - monitor blood sugar
--- NOTE | 2019-09-12 16:47 | CONSULT ---
Consult Consult Specialty:: UROLOGY Reason for Consultation:: Gross hematuria - History of Present Illness Chief Complaint: 79 Y/O Male patient with history of KIKI,, HT, DM, CAD, BPH and Dementia developed AUR and gross hematuria.. BUN 23 S.Creat 1.3 WBC 9.4 HB 10.5. 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 Cardio/Vascular: Yes: CAD, HTN, Hyperlipdemia Pulmonary: Yes: Asthma, COPD Renal/: Yes: Renal Inusuff - Past Surgical History Past Surgical History: Yes: CABG, Joint Replacement (R hip ORIF) - Alcohol/Substance Use Hx Alcohol Use: No - Smoking History Smoking history: Former smoker Have you smoked in the past 12 months: No Aproximately how many cigarettes per day: 0 If you are a former smoker, when did you quit?: '96 - Social History Usual Living Arrangement: With Spouse ADL: Family Assistance History of Recent Travel: No Home Medications - Allergies Allergies/Adverse Reactions: Allergies Allergy/AdvReac Type Severity Reaction Status Date / Time No Known Allergies Allergy Verified 01/11/19 11:57 - Home Medications Home Medications: Ambulatory Orders Atorvastatin Ca [Lipitor] 40 mg PO DAILY 05/06/19 Clopidogrel Bisulfate [Plavix] 75 mg PO DAILY 05/06/19 Ezetimibe 10 mg PO HS 05/06/19 Nebivolol HCl [Bystolic] 2.5 mg PO HS 05/06/19 Tamsulosin HCl 0.4 mg PO DAILY 05/06/19 Compression Socks, Medium [Futuro Restoring] 1 each [facility] DAILY #1 each 09/06/19 Donepezil HCl [Aricept -] 5 mg PO DAILY tablet 09/06/19 Doxycycline Hyclate [Vibramycin -] 100 mg PO BID@1000,1800 3 Days #6 capsule 10/15 Escitalopram Oxalate [Lexapro -] 10 mg PO DAILY tablet 09/06/19 Insulin (Levemir) [Levemir Vial] 15 units SQ BID@0700,2200 units 09/06/19 Insulin Aspart [Novolog] 2 unit SQ ACLD #1 cartridge 09/06/19 Insulin Sliding Scale [Novolog Vial Sliding Scale -] 1 vial SQ ACHS units 09/06 Tamsulosin HCl 0.4 mg PO BID #60 capsule 09/06/19 Physical Exam Vital Signs: Vital Signs Temperature 98 F 09/12/19 14:08 Pulse Rate 74 09/12/19 14:08 Respiratory Rate 20 09/12/19 14:08 Blood Pressure 114/56 L 09/12/19 14:08 O2 Sat by Pulse Oximetry (%) 98 09/03/19 09:00 Labs: CBC, BMP 09/12/19 09:03 09/12/19 09:03 Assessment/Plan AUR BPH Gross hematuria Plan: NPO for Cystoscopy tomorrow.
[2019-09-12 18:18] LABS: BASO % 0.8 % (0-2.0); EOS % 1.7 % (0-4.5); HEMATOCRIT 23.7 % (35.4-49); HEMOGLOBIN 7.7 GM/dL (11.7-16.9); LYMPH % 17.8 % (8-40); MCH 28.9 pg (25.7-33.7); MCHC 32.5 g/dl (32.0-35.9); MEAN CELL VOLUME 88.9 fl (80-96); MEAN PLT VOLUME 8.3 fl (7.5-11.1); MONO % 12.3 % (3.8-10.2); NEUT % 67.4 % (42.8-82.8); PLATELET COUNT 242 K/MM3 (134-434); RBC 2.67 M/mm3 (4.00-5.60); RDW 14.6 % (11.9-15.9); WHITE BLOOD COUNT 10.3 K/mm3 (4.0-10.0)
[2019-09-12] MEDS ORDERED: PT OWN MED DRAWER 7, Y5N ONE (19:17)
[2019-09-12] MEDS: ATORVASTATIN CA 40 MG TABLET (FP) PO SCH (21:51)
[2019-09-12] MEDS: EZETIMIBE 10 MG TABLET (FP) PO SCH (21:51)
[2019-09-12] MEDS: NEBIVOLOL 2.5 MG TABLET (FP) PO SCH (21:51)
[2019-09-13] MEDS: INSULIN (LEVEMIR) 100 UNITS/ML UNITS SQ SCH (06:22)
[2019-09-13] MEDS: INSULIN SLIDING SCALE (NOVOLOG) 1 VIAL SQ SCH ×3 (06:23→17:55)
--- NOTE | 2019-09-13 07:22 | PN ---
Progress Note (short form) - Note Progress Note: HPI: Pt awaiting cystography today for investigation of gross hematuria. No other events overnight. HPI limited due to clinical condition. PE: Gen: NAD, easily arousable Lungs: CTA b/l, no wheezes. On RA CARD: RRR no M/m/r ABD: Soft, Nt/ND, normoactive BS : blood noted around diaper without any blood from meatus Ext: No edema, pulses intact througout CBC, BMP 09/13/19 13:20 09/13/19 17:30 Microbiology 09/01/19 23:00 Blood - Peripheral Venous Blood Culture - Final NO GROWTH AFTER 5 DAYS INCUBATION 09/01/19 23:00 Blood - Peripheral Venous Blood Culture - Final NO GROWTH AFTER 5 DAYS INCUBATION 09/01/19 21:16 Urine - Urine Arguello Urine Culture - Final Strep Agalactiae Group B Mr S Aureus Staphylococcus Coagulase Neg Active Medications Acetaminophen (Tylenol -) 650 mg PO Q4H PRN PRN Reason: FEVER Last Admin: 09/08/19 18:00 Dose: 650 mg Atorvastatin Calcium (Lipitor -) 40 mg PO HS [facility] Last Admin: 09/13/19 21:52 Dose: 40 mg Donepezil HCl (Aricept -) 10 mg PO DAILY [facility] Last Admin: 09/13/19 11:37 Dose: Not Given Ezetimibe (Zetia -) 10 mg PO HS [facility] Last Admin: 09/13/19 21:51 Dose: 10 mg Escitalopram Oxalate (Lexapro -) 10 mg PO DAILY [facility] Last Admin: 09/13/19 11:37 Dose: Not Given Finasteride (Proscar -) 5 mg PO DAILY [facility] Last Admin: 09/13/19 11:38 Dose: Not Given Lactated Ringer's (Lactated Ringers Solution) 1,000 mls @ 75 mls/hr IV ASDIR [facility] Last Admin: 09/13/19 19:11 Dose: Not Given Insulin Aspart (Novolog Vial Sliding Scale -) 1 vial SQ ACHS [facility]; Protocol Last Admin: 09/13/19 17:55 Dose: 8 units Insulin Aspart (Novolog Vial) 4 units SQ ACLD [facility] Last Admin: 09/13/19 19:11 Dose: Not Given Insulin Detemir (Levemir Vial) 26 units SQ AM [facility] Last Admin: 09/13/19 06:22 Dose: Not Given Levofloxacin (Levaquin -) 250 mg PO DAILY@0600 [facility] Stop: 09/16/19 07:00 Nebivolol (Bystolic -) 2.5 mg PO HS [facility] Last Admin: 09/13/19 21:52 Dose: Not Given Nystatin (Nystop Powder -) 1 applic TP BID [facility] Last Admin: 09/13/19 21:52 Dose: 1 applic Ondansetron HCl (Zofran Injection) 4 mg IVPUSH Q6H PRN PRN Reason: NAUSEA AND/OR VOMITING Tamsulosin HCl (Flomax -) 0.4 mg PO BID@0830,2200 [facility] Last Admin: 09/13/19 21:51 Dose: 0.4 mg A/P Gross hematuria BPH Acute on chronic kidney injury Acute cystitis DKA (resolved) Uncontrolled DM Normal pressure hydrocephalus CAD s/p CABG HFpEF Hx HTN Hx HLD COPD, not in exacerbation --Appreciate all guidance consultant recommendations --Awaiting cystoscopy today for hematuria and investigation of obstructive BPH --Monitor CBC --Continue Proscar 5mg qdaily --Continue Flomax 0.4mg BID --Continue Levaquin 250mg qdaily for cystitis --Cr decreasing, however monitor for acute changes --Multiple etiologies for CKD, however acute injury likely from potential obstruction and pre-renal azotemia --Avoid nephrotoxic agents --Glucose levels approaching target --Continue Levemir 26 units AM --Continue premeal Novolog 4U ACLD --Continue ISS for breakthrough coverage --Monitor glucose levels --Pt not candidate for shunting revolving around NPH. --Continue Aricept 10mg and Lexapro 10mg qdaily FEN: Fluids: PO Electrolyte abnormalities: Hyperkalemia (mild; Lokelma 5) Nutrition: NPO for procedure PPX: DVT - scds Dispo: Awaiting cysto; Case discussed with Dr. Joey Grubbs, DO - IM PGY-3 <Stevie Grubbs - Last Filed: 09/13/19 22:43> - Note Progress Note: Seen and examined; agree with resident note aside from as supplemented below by myself. Independently reviewed all labs, vitals, and diagnostics. In addition I verified all patel historic and PE findings. No new complaints; no agitation, resting in bed, arguello draining pinkish urine. 10 sys ROS done and negative aside from HPI NAD, AAO, resting in bed NC AT EOMI PERRLA Neurologically unchanged; wont participate in full exam but CN2-12 wnl, moves all 4 ext with normal sensory NT ND +BS HR wnl, no fnd Lungs CTAB, w/ sym exp Skin without rashes or breakdown Not agitated, cannot do full psych exam, restricted insight and judgment secondary to clinical condition 1) DKA 2/2 issues with managing insulin pump, resolved-DC on SQ insulin 2) Uncontrolled DM -Continually adjusting insulin. Complete control has proven difficult with this patient but is preferable to the ongoing issue with pump. No further input from endo noted. 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 Can discuss therapeutic tap as needed but per neuro likely should be done OP. Will continue to monitor. 4) Acute Cystitis with Hematuria vs. Cristobal Hematuria- Abx per ID; continue to monitor. Ongoing trauma 2/2 underlying dementia vs. infectious origin. 5) Urinary Obstruction - Continue tamsulosin and finasteride. 6) KIKI on CKD-III, improved - Improved to resolve, underlying CKD likely secondary to diabetes mellitus being so uncontrolled. We will continue to monitor. He should follow-up with his manager relocation upon discharge. 7) Hx CAD s/p CABG *There is no documented history of any recent stents, etc. etc. that would necessitate the absolute use of Plavix. However the patient's hemoglobin went from 9-10, which does not endorse any worsening bleeding. Due to this, I will elect to continue it from now, and I will speak with resident team about obtaining more records so we can elucidate the patient's full cardiac history and discontinue this medication if indeed is not indicated. He is not having any chest pain or atypical cardiac symptoms are apparent to myself or nursing. 8) Underlying Dementia (documented as Alzheimer's Type) *Worsened by NPH and likely toxic metabolic encephalopathy due to the acute issues. Son tells me that he transfers and ambulates on his own. 9) Hx D-CHF 10) Lactic Acidosis, resolved 11) Hypernatremia, resolved 12) Hx HTN 13) Hx HLD 14) Hx COPD, no acute exacerbation <Hernesto Cook - Last Filed: 09/20/19 07:31>
--- NOTE | 2019-09-13 11:23 | PN ---
Progress Note, Physician History of Present Illness: events noted was not able to pas urine foleys placed hematuria with clots plan to go to or for cystoscopy - Current Medication List Current Medications: Active Medications Acetaminophen (Tylenol -) 650 mg PO Q4H PRN PRN Reason: FEVER Last Admin: 09/08/19 18:00 Dose: 650 mg Atorvastatin Calcium (Lipitor -) 40 mg PO HS [facility] Last Admin: 09/12/19 21:51 Dose: 40 mg Donepezil HCl (Aricept -) 10 mg PO DAILY [facility] Last Admin: 09/12/19 10:38 Dose: 10 mg Ezetimibe (Zetia -) 10 mg PO HS [facility] Last Admin: 09/12/19 21:51 Dose: 10 mg Escitalopram Oxalate (Lexapro -) 10 mg PO DAILY [facility] Last Admin: 09/12/19 10:38 Dose: 10 mg Finasteride (Proscar -) 5 mg PO DAILY [facility] Last Admin: 09/12/19 10:38 Dose: 5 mg Insulin Aspart (Novolog Vial Sliding Scale -) 1 vial SQ ACHS [facility]; Protocol Last Admin: 09/13/19 06:23 Dose: Not Given Insulin Aspart (Novolog Vial) 4 units SQ ACLD [facility] Last Admin: 09/12/19 17:57 Dose: 4 units Insulin Detemir (Levemir Vial) 26 units SQ AM [facility] Last Admin: 09/13/19 06:22 Dose: Not Given Nebivolol (Bystolic -) 2.5 mg PO HS [facility] Last Admin: 09/12/19 21:51 Dose: 2.5 mg Nystatin (Nystop Powder -) 1 applic TP BID [facility] Last Admin: 09/12/19 21:51 Dose: 1 applic Tamsulosin HCl (Flomax -) 0.4 mg PO BID@0830,2200 [facility] Last Admin: 09/12/19 21:51 Dose: 0.4 mg - Objective Vital Signs: Vital Signs Temperature 97.5 F L 09/13/19 06:00 Pulse Rate 85 09/13/19 06:00 Respiratory Rate 18 09/13/19 06:00 Blood Pressure 131/63 09/13/19 06:00 O2 Sat by Pulse Oximetry (%) 98 09/12/19 21:00 Constitutional: Yes: Calm, Mild Distress Neck: Yes: Supple Cardiovascular: Yes: Regular Rate and Rhythm, S1, S2 Respiratory: Yes: Regular, CTA Bilaterally Gastrointestinal: Yes: Normal Bowel Sounds, Soft Genitourinary: Yes: Strong Present, Hematuria Musculoskeletal: Yes: WNL Extremities: Yes: WNL Neurological: Yes: Alert Labs: CBC, BMP 09/12/19 18:00 09/12/19 09:03 INR, PTT INR 1.15 (0.83-1.09) H 09/01/19 21:00 Assessment/Plan 79 year old man with a history of HTN, hyperlipidemia, CAD, [place], CABG, chronic diastolic heart failure, type 2 DM, stage 3 CKD, COPD, dementia who presented to the ED with altered mental status. 1. Acute metabolic encephalopathy 2. Acute kidney injury 3. Abdominal pain 4. UTI 5. Lactic acidosis 6. Hypernatremia 7. Hypophosphatemia 8. HTN 9. Hyperlipidemia 10. CAD, history of [place], CABG 11. Chronic diastolic heart failure 12. Stage 3 CKD 13. COPD 14. Alzheimer dementia plan continue current mgmt monitor rest as per the team for cystoscopy rest as per the team
[2019-09-13] MEDS: INSULIN (NOVOLOG) ASPART 100 UNITS/ML 10ML VIAL SQ SCH ×2 (11:35→19:11)
[2019-09-13] MEDS: DONEPEZIL HCL 10 MG TABLET (FP) PO SCH (11:37)
[2019-09-13] MEDS: TAMSULOSIN HCL 0.4 MG CAP PO SCH ×2 (11:37→21:51)
[2019-09-13] MEDS: ESCITALOPRAM OXALATE 10 MG TABLET (FP) PO SCH (11:37)
[2019-09-13] MEDS: FINASTERIDE 5 MG TABLET (FP) PO SCH (11:38)
[2019-09-13] MEDS: NYSTATIN POWDER 100,000 UNITS/GM - 15 GM TOPICAL POWDER TP SCH ×2 (11:38→21:52)
[2019-09-13 13:41] LABS: EOS % 2.1 % (0-4.5); HEMOGLOBIN 7.7 GM/dL (11.7-16.9); MCH 29.8 pg (25.7-33.7); MCHC 33.3 g/dl (32.0-35.9); MEAN CELL VOLUME 89.3 fl (80-96); MEAN PLT VOLUME 7.7 fl (7.5-11.1); MONO % 7.9 % (3.8-10.2); PLATELET COUNT 240 K/MM3 (134-434); RBC 2.57 M/mm3 (4.00-5.60); RDW 15.1 % (11.9-15.9)
[2019-09-13 14:00] LABS: BLOOD UREA NITROGEN 19.3 mg/dL (7-18); CALCIUM 8.7 mg/dL (8.5-10.1); CREATININE 1.2 mg/dL (0.55-1.3); POTASSIUM 5.2 mmol/L (3.5-5.1)
[2019-09-13] MEDS ORDERED: SODIUM ZIRCONIUM CYCLOSILICATE (LOKELMA) 5 GM PACKET PO ONE (14:19)
[2019-09-13] MEDS ORDERED: PROPOFOL 20 ML ONE ×3 (15:54→16:33)
[2019-09-13] MEDS ORDERED: EPHEDRINE SULFATE/0.9% NACL/PF 50 MG/10 ML SYRINGE NR ONE (16:19)
[2019-09-13] MEDS ORDERED: ceFAZolin SODIUM 1 GM VIAL ONE (16:29)
[2019-09-13] MEDS ORDERED: ONDANSETRON 4 MG/2 ML VIAL IVPUSH PRN (17:01)
--- NOTE | 2019-09-13 17:03 | OP ---
Operative Note - Note: Operative Date: 09/13/19 Pre-Operative Diagnosis: bleeding prostate gland, clots, trabeculated bladder, bph with obstruction Operation: evacuation of clots, turp/tuvp Findings: large bleeding prostate gland with large amount of clots Post-Operative Diagnosis: Same as Pre-op Surgeon: Yamila Morris Anesthesia: General Specimens Removed: prostate chips, blood clots Estimated Blood Loss (mls): 50 Drains & Tubes with Location: 24f 3-way 30 cc arguello Drains, Volume Out (mls): 0 Blood Volume Replaced (mls): 0 Fluid Volume Replaced (mls): 0 Operative Report Dictated: Yes
--- NOTE | 2019-09-13 17:34 | PN ---
Progress Note, Physician History of Present Illness: Pt seen and examined at bedside. He is in the recovery room. He just had a turp. - Current Medication List Current Medications: Active Medications Acetaminophen (Tylenol -) 650 mg PO Q4H PRN PRN Reason: FEVER Last Admin: 09/08/19 18:00 Dose: 650 mg Atorvastatin Calcium (Lipitor -) 40 mg PO HS [facility] Last Admin: 09/12/19 21:51 Dose: 40 mg Donepezil HCl (Aricept -) 10 mg PO DAILY [facility] Last Admin: 09/13/19 11:37 Dose: Not Given Ezetimibe (Zetia -) 10 mg PO HS [facility] Last Admin: 09/12/19 21:51 Dose: 10 mg Escitalopram Oxalate (Lexapro -) 10 mg PO DAILY [facility] Last Admin: 09/13/19 11:37 Dose: Not Given Fentanyl (Sublimaze Injection -) 25 mcg IVPUSH [id number] PRN PRN Reason: PAIN-PACU ORDER X 4 DOSES ONLY Stop: 09/14/19 02:00 Finasteride (Proscar -) 5 mg PO DAILY [facility] Last Admin: 09/13/19 11:38 Dose: Not Given Lactated Ringer's (Lactated Ringers Solution) 1,000 mls @ 75 mls/hr IV ASDIR [facility] Insulin Aspart (Novolog Vial Sliding Scale -) 1 vial SQ ACHS [facility]; Protocol Last Admin: 09/13/19 11:35 Dose: Not Given Insulin Aspart (Novolog Vial) 4 units SQ ACLD [facility] Last Admin: 09/13/19 11:35 Dose: Not Given Insulin Detemir (Levemir Vial) 26 units SQ AM [facility] Last Admin: 09/13/19 06:22 Dose: Not Given Levofloxacin (Levaquin -) 250 mg PO DAILY@0600 [facility] Stop: 09/16/19 07:00 Nebivolol (Bystolic -) 2.5 mg PO HS [facility] Last Admin: 09/12/19 21:51 Dose: 2.5 mg Nystatin (Nystop Powder -) 1 applic TP BID [facility] Last Admin: 09/13/19 11:38 Dose: 1 applic Ondansetron HCl (Zofran Injection) 4 mg IVPUSH Q6H PRN PRN Reason: NAUSEA AND/OR VOMITING Tamsulosin HCl (Flomax -) 0.4 mg PO BID@0830,2200 [facility] Last Admin: 09/13/19 11:37 Dose: Not Given - Objective Vital Signs: Vital Signs Temperature 98.7 F 09/13/19 13:04 Pulse Rate 72 09/13/19 13:04 Respiratory Rate 18 09/13/19 13:04 Blood Pressure 112/74 09/13/19 13:04 O2 Sat by Pulse Oximetry (%) 98 09/13/19 09:00 Constitutional: Yes: Calm Eyes: Yes: Conjunctiva Clear HENT: Yes: Atraumatic Neck: Yes: Supple Cardiovascular: Yes: S1, S2 Respiratory: Yes: CTA Bilaterally Gastrointestinal: Yes: Soft Genitourinary: Yes: Strong Present, Hematuria, Other (cbi) Edema: No Integumentary: Yes: WNL Neurological: Yes: Confusion Labs: CBC, BMP 09/13/19 13:20 09/13/19 10:21 INR, PTT INR 1.15 (0.83-1.09) H 09/01/19 21:00 Problem List - Problems (1) KIKI (acute kidney injury) Code(s): N17.9 - ACUTE KIDNEY FAILURE, UNSPECIFIED (2) DKA (diabetic ketoacidoses) Code(s): E11.10 - TYPE 2 DIABETES MELLITUS WITH KETOACIDOSIS WITHOUT COMA Qualifiers: Diabetes mellitus type: type 2 Diabetes mellitus complication detail: without coma Qualified Code(s): E11.10 - Type 2 diabetes mellitus with ketoacidosis without coma (3) Acute renal failure Code(s): N17.9 - ACUTE KIDNEY FAILURE, UNSPECIFIED (4) Hypernatremia Code(s): E87.0 - HYPEROSMOLALITY AND HYPERNATREMIA Assessment/Plan Current Medications Generic Name Dose Route Start Last Admin Trade Name Freq PRN Reason Stop Dose Admin Acetaminophen 650 mg 09/04/19 10:34 09/08/19 18:00 Tylenol - PO 650 mg Q4H PRN Administration FEVER Atorvastatin Calcium 40 mg 09/02/19 22:00 09/12/19 21:51 Lipitor - PO 40 mg HS [facility] Administration Donepezil HCl 10 mg 09/11/19 10:00 09/13/19 11:37 Aricept - PO Not Given DAILY [facility] Ezetimibe 10 mg 09/02/19 22:00 09/12/19 21:51 Zetia - PO 10 mg HS [facility] Administration Escitalopram Oxalate 10 mg 09/11/19 10:00 09/13/19 11:37 Lexapro - PO Not Given DAILY [facility] Fentanyl 25 mcg 09/13/19 17:01 Sublimaze Injection - IVPUSH 09/14/19 02:00 [id number] PRN PAIN-PACU ORDER X 4 DOSES ONLY Finasteride 5 mg 09/11/19 10:00 09/13/19 11:38 Proscar - PO Not Given DAILY [facility] Lactated Ringer's 1,000 mls @ 75 mls/hr 09/13/19 17:15 Lactated Ringers Solution IV ASDIR [facility] Insulin Aspart 1 vial 09/05/19 00:52 09/13/19 11:35 Novolog Vial Sliding Scale - SQ Not Given ACHS [facility] Protocol Insulin Aspart 4 units 09/12/19 07:28 09/13/19 11:35 Novolog Vial SQ Not Given ACLD [facility] Insulin Detemir 26 units 09/12/19 07:27 09/13/19 06:22 Levemir Vial SQ Not Given AM [facility] Levofloxacin 250 mg 09/13/19 17:30 Levaquin - PO 09/16/19 07:00 DAILY@0600 [facility] Nebivolol 2.5 mg 09/02/19 22:00 09/12/19 21:51 Bystolic - PO 2.5 mg HS [facility] Administration Nystatin 1 applic 09/05/19 11:30 09/13/19 11:38 Nystop Powder - TP 1 applic BID [facility] Administration Ondansetron HCl 4 mg 09/13/19 17:01 Zofran Injection IVPUSH Q6H PRN NAUSEA AND/OR VOMITING Tamsulosin HCl 0.4 mg 09/11/19 08:45 09/13/19 11:37 Flomax - PO Not Given BID@0830,2200 [facility] Impression 1. KIKI 2. DKA 3. hypernatremia 4. DM 5. dementia 6. cad 7. hyperkalemia Plan - monitor renal function - repeat labs in am - fluids should help with potassium - will need better glucose control - monitor lytes - monitor blood sugar - will follow PRN
[2019-09-13 19:06] LABS: BLOOD UREA NITROGEN 19.4 mg/dL (7-18); CALCIUM 8.5 mg/dL (8.5-10.1); CREATININE 1.4 mg/dL (0.55-1.3)
[2019-09-13] MEDS: LACTATED RINGERS SOLUTION 1,000 ML IV SCH (19:11)
[2019-09-13] MEDS ORDERED: PT OWN MED DRAWER 7, Y5N ONE (20:51)
[2019-09-13] MEDS: EZETIMIBE 10 MG TABLET (FP) PO SCH (21:51)
[2019-09-13] MEDS: NEBIVOLOL 2.5 MG TABLET (FP) PO SCH (21:52)
[2019-09-13] MEDS: ATORVASTATIN CA 40 MG TABLET (FP) PO SCH (21:52)
[2019-09-14] MEDS: INSULIN (LEVEMIR) 100 UNITS/ML UNITS SQ SCH (06:21)
[2019-09-14] MEDS: LACTATED RINGERS SOLUTION 1,000 ML IV SCH ×2 (06:24→22:34)
[2019-09-14] MEDS: INSULIN SLIDING SCALE (NOVOLOG) 1 VIAL SQ SCH ×6 (06:27→22:56)
[2019-09-14] MEDS ORDERED: PT OWN MED DRAWER 7, Y5N ONE ×2 (06:45→21:07)
[2019-09-14 07:45] LABS: HEMATOCRIT 26.5 % (35.4-49); HEMOGLOBIN 8.7 GM/dL (11.7-16.9); MCH 29.4 pg (25.7-33.7); MCHC 32.6 g/dl (32.0-35.9); MEAN CELL VOLUME 90.2 fl (80-96); MEAN PLT VOLUME 7.9 fl (7.5-11.1); PLATELET COUNT 241 K/MM3 (134-434); RBC 2.94 M/mm3 (4.00-5.60); RDW 14.3 % (11.9-15.9); WHITE BLOOD COUNT 15.6 K/mm3 (4.0-10.0)
[2019-09-14 08:03] LABS: BLOOD UREA NITROGEN 20.4 mg/dL (7-18); CALCIUM 8.5 mg/dL (8.5-10.1); CREATININE 1.3 mg/dL (0.55-1.3); MAGNESIUM 2.5 mg/dL (1.8-2.4); PHOSPHOROUS 3.6 mg/dL (2.5-4.9)
[2019-09-14 08:10] LABS: INR 1.42 (0.83-1.09); PROTHROMBIN TIME (PATIENT) 16.8 SEC (9.7-13.0)
[2019-09-14] MEDS: ESCITALOPRAM OXALATE 10 MG TABLET (FP) PO SCH (09:32)
[2019-09-14] MEDS: FINASTERIDE 5 MG TABLET (FP) PO SCH (09:32)
[2019-09-14] MEDS: TAMSULOSIN HCL 0.4 MG CAP PO SCH ×2 (09:32→22:35)
[2019-09-14] MEDS: DONEPEZIL HCL 10 MG TABLET (FP) PO SCH (09:32)
--- NOTE | 2019-09-14 10:27 | PN ---
Progress Note, Physician History of Present Illness: patient post cystoscopy stable - Current Medication List Current Medications: Active Medications Acetaminophen (Tylenol -) 650 mg PO Q4H PRN PRN Reason: FEVER Last Admin: 09/08/19 18:00 Dose: 650 mg Atorvastatin Calcium (Lipitor -) 40 mg PO HS [facility] Last Admin: 09/13/19 21:52 Dose: 40 mg Donepezil HCl (Aricept -) 10 mg PO DAILY [facility] Last Admin: 09/14/19 09:32 Dose: 10 mg Ezetimibe (Zetia -) 10 mg PO HS [facility] Last Admin: 09/13/19 21:51 Dose: 10 mg Escitalopram Oxalate (Lexapro -) 10 mg PO DAILY [facility] Last Admin: 09/14/19 09:32 Dose: 10 mg Finasteride (Proscar -) 5 mg PO DAILY [facility] Last Admin: 09/14/19 09:32 Dose: 5 mg Lactated Ringer's (Lactated Ringers Solution) 1,000 mls @ 75 mls/hr IV ASDIR [facility] Last Admin: 09/14/19 06:24 Dose: 75 mls/hr Insulin Aspart (Novolog Vial Sliding Scale -) 1 vial SQ ACHS [facility]; Protocol Last Admin: 09/14/19 07:43 Dose: Not Given Insulin Aspart (Novolog Vial) 4 units SQ ACLD [facility] Last Admin: 09/13/19 19:11 Dose: Not Given Insulin Detemir (Levemir Vial) 26 units SQ AM [facility] Last Admin: 09/14/19 06:21 Dose: 26 units Levofloxacin (Levaquin -) 250 mg PO DAILY@0600 [facility] Stop: 09/16/19 07:00 Last Admin: 09/14/19 07:43 Dose: Not Given Nebivolol (Bystolic -) 2.5 mg PO HS [facility] Last Admin: 09/13/19 21:52 Dose: Not Given Nystatin (Nystop Powder -) 1 applic TP BID [facility] Last Admin: 09/13/19 21:52 Dose: 1 applic Ondansetron HCl (Zofran Injection) 4 mg IVPUSH Q6H PRN PRN Reason: NAUSEA AND/OR VOMITING Tamsulosin HCl (Flomax -) 0.4 mg PO BID@0830,2200 [facility] Last Admin: 09/14/19 09:32 Dose: 0.4 mg - Objective Vital Signs: Vital Signs Temperature 98.5 F 09/14/19 09:41 Pulse Rate 80 09/14/19 09:41 Respiratory Rate 20 09/14/19 09:41 Blood Pressure 112/52 L 09/14/19 09:41 O2 Sat by Pulse Oximetry (%) 97 09/13/19 21:00 Constitutional: Yes: No Distress, Calm Cardiovascular: Yes: S1, S2 Respiratory: Yes: Regular, CTA Bilaterally Gastrointestinal: Yes: Normal Bowel Sounds, Soft Genitourinary: Yes: Strong Present Musculoskeletal: Yes: WNL Neurological: Yes: Alert Labs: CBC, BMP 09/14/19 06:38 09/14/19 06:30 INR, PTT INR 1.42 (0.83-1.09) H 09/14/19 06:38 Assessment/Plan 79 year old man with a history of HTN, hyperlipidemia, CAD, [place], CABG, chronic diastolic heart failure, type 2 DM, stage 3 CKD, COPD, dementia who presented to the ED with altered mental status. 1. Acute metabolic encephalopathy 2. Acute kidney injury 3. Abdominal pain 4. UTI 5. Lactic acidosis 6. Hypernatremia 7. Hypophosphatemia 8. HTN 9. Hyperlipidemia 10. CAD, history of [place], CABG 11. Chronic diastolic heart failure 12. Stage 3 CKD 13. COPD 14. Alzheimer dementia plan continue current mgmt monitor for hematuria patient stable await for all results
[2019-09-14] MEDS: INSULIN (NOVOLOG) ASPART 100 UNITS/ML 10ML VIAL SQ SCH ×2 (11:26→17:00)
--- NOTE | 2019-09-14 12:11 | PN ---
Progress Note, Physician Chief Complaint: pt appers comfortable , no cute distress, - Current Medication List Current Medications: Active Medications Acetaminophen (Tylenol -) 650 mg PO Q4H PRN PRN Reason: FEVER Last Admin: 09/08/19 18:00 Dose: 650 mg Atorvastatin Calcium (Lipitor -) 40 mg PO HS [facility] Last Admin: 09/13/19 21:52 Dose: 40 mg Donepezil HCl (Aricept -) 10 mg PO DAILY [facility] Last Admin: 09/14/19 09:32 Dose: 10 mg Ezetimibe (Zetia -) 10 mg PO HS [facility] Last Admin: 09/13/19 21:51 Dose: 10 mg Escitalopram Oxalate (Lexapro -) 10 mg PO DAILY [facility] Last Admin: 09/14/19 09:32 Dose: 10 mg Finasteride (Proscar -) 5 mg PO DAILY [facility] Last Admin: 09/14/19 09:32 Dose: 5 mg Lactated Ringer's (Lactated Ringers Solution) 1,000 mls @ 75 mls/hr IV ASDIR [facility] Last Admin: 09/14/19 06:24 Dose: 75 mls/hr Insulin Aspart (Novolog Vial Sliding Scale -) 1 vial SQ ACHS [facility]; Protocol Last Admin: 09/14/19 11:26 Dose: 2 units Insulin Aspart (Novolog Vial) 4 units SQ ACLD [facility] Last Admin: 09/14/19 11:26 Dose: 4 units Insulin Detemir (Levemir Vial) 32 units SQ AM [facility] Levofloxacin (Levaquin -) 250 mg PO DAILY@0600 [facility] Stop: 09/16/19 07:00 Last Admin: 09/14/19 07:43 Dose: Not Given Nebivolol (Bystolic -) 2.5 mg PO HS [facility] Last Admin: 09/13/19 21:52 Dose: Not Given Nystatin (Nystop Powder -) 1 applic TP BID [facility] Last Admin: 09/13/19 21:52 Dose: 1 applic Ondansetron HCl (Zofran Injection) 4 mg IVPUSH Q6H PRN PRN Reason: NAUSEA AND/OR VOMITING Tamsulosin HCl (Flomax -) 0.4 mg PO BID@0830,2200 [facility] Last Admin: 09/14/19 09:32 Dose: 0.4 mg - Objective Vital Signs: Vital Signs Temperature 98.5 F 09/14/19 09:41 Pulse Rate 80 09/14/19 09:41 Respiratory Rate 20 09/14/19 09:41 Blood Pressure 112/52 L 09/14/19 09:41 O2 Sat by Pulse Oximetry (%) 97 09/13/19 21:00 Constitutional: Yes: Well Nourished Eyes: Yes: WNL HENT: Yes: WNL Neck: Yes: WNL, Supple Gastrointestinal: Yes: WNL, Normal Bowel Sounds Genitourinary: Yes: WNL Neurological: Yes: WNL, Alert, Oriented Labs: CBC, BMP 09/14/19 06:38 09/14/19 06:30 INR, PTT INR 1.42 (0.83-1.09) H 09/14/19 06:38 Impression/Plan Impression/Plan: Gross hematuria,BPH,Acute on chronic kidney injury Acute cystitis --Appreciate all home energy consultant recommendations -had cystoscopy yesterday, path pending, --Monitor CBC --Continue Proscar 5mg qdaily --Continue Flomax 0.4mg BID --Continue Levaquin 250mg qdaily for cystitis -KIKI< -Cr decreasing, however monitor for acute changes --Multiple etiologies for CKD, however acute injury likely from potential obstruction and pre-renal azotemia --Avoid nephrotoxic agents, DKA resolved , dm still uncintrolled -inc Levemir 32 units AM --increase Continue premeal Novolog 8 U ACLD --Continue ISS for breakthrough coverage --Monitor glucose levels dementia, --Continue Aricept 10mg and Lexapro 10mg qdaily CAD s/p CABG, stable, Hx HTN, controlled, Hx HLD COPD, not in exacerbation, stbabe FEN: Fluids: PO Electrolyte abnormalities: monitor, Nutrition: 1800 ada , diet, PPX: DVT - scds Visit type - Emergency Visit Emergency Visit: No - New Patient This patient is new to me today: Yes Date on this admission: 09/14/19 - Critical Care Critical Care patient: No - Discharge Referral Referred to [facility] Med [facility] No
[2019-09-14] MEDS: NYSTATIN POWDER 100,000 UNITS/GM - 15 GM TOPICAL POWDER TP SCH ×2 (12:47→22:57)
[2019-09-14] MEDS: ATORVASTATIN CA 40 MG TABLET (FP) PO SCH (22:35)
[2019-09-14] MEDS: NEBIVOLOL 2.5 MG TABLET (FP) PO SCH (22:35)
[2019-09-14] MEDS: EZETIMIBE 10 MG TABLET (FP) PO SCH (22:57)
[2019-09-15] MEDS: INSULIN SLIDING SCALE (NOVOLOG) 1 VIAL SQ SCH ×4 (06:09→22:13)
[2019-09-15] MEDS ORDERED: INSULIN (LEVEMIR) 100 UNITS/ML UNITS SQ SCH (07:00)
[2019-09-15 07:01] LABS: ALBUMIN 2.1 g/dl (3.4-5.0); BILIRUBIN,TOTAL 0.6 mg/dL (0.2-1); BLOOD UREA NITROGEN 17.3 mg/dL (7-18); CALCIUM 7.9 mg/dL (8.5-10.1); CREATININE 1.1 mg/dL (0.55-1.3); POTASSIUM 4.9 mmol/L (3.5-5.1); TOT PROT 5.5 g/dl (6.4-8.2)
[2019-09-15 07:12] LABS: BASO % 0.9 % (0-2.0); HEMATOCRIT 24.6 % (35.4-49); HEMOGLOBIN 8.1 GM/dL (11.7-16.9); LYMPH % 11.7 % (8-40); MCH 29.7 pg (25.7-33.7); MCHC 33.1 g/dl (32.0-35.9); MEAN CELL VOLUME 89.7 fl (80-96); MEAN PLT VOLUME 8.1 fl (7.5-11.1); MONO % 6.7 % (3.8-10.2); NEUT % 78.7 % (42.8-82.8); PLATELET COUNT 206 K/MM3 (134-434); RBC 2.74 M/mm3 (4.00-5.60); RDW 14.7 % (11.9-15.9); WHITE BLOOD COUNT 12.7 K/mm3 (4.0-10.0)
--- NOTE | 2019-09-15 09:55 | PN ---
Progress Note, Physician Chief Complaint: pt appers comfortable , no cute distress, no cp, no sob, - Current Medication List Current Medications: Active Medications Acetaminophen (Tylenol -) 650 mg PO Q4H PRN PRN Reason: FEVER Last Admin: 09/08/19 18:00 Dose: 650 mg Atorvastatin Calcium (Lipitor -) 40 mg PO HS [facility] Last Admin: 09/14/19 22:35 Dose: 40 mg Donepezil HCl (Aricept -) 10 mg PO DAILY [facility] Last Admin: 09/14/19 09:32 Dose: 10 mg Ezetimibe (Zetia -) 10 mg PO HS [facility] Last Admin: 09/14/19 22:57 Dose: 10 mg Escitalopram Oxalate (Lexapro -) 10 mg PO DAILY [facility] Last Admin: 09/14/19 09:32 Dose: 10 mg Finasteride (Proscar -) 5 mg PO DAILY [facility] Last Admin: 09/14/19 09:32 Dose: 5 mg Lactated Ringer's (Lactated Ringers Solution) 1,000 mls @ 75 mls/hr IV ASDIR [facility] Last Admin: 09/14/19 22:34 Dose: Not Given Insulin Aspart (Novolog Vial Sliding Scale -) 1 vial SQ ACHS [facility]; Protocol Last Admin: 09/15/19 06:09 Dose: 6 units Insulin Aspart (Novolog Vial) 8 units SQ ACLD [facility] Last Admin: 09/14/19 17:00 Dose: 8 units Insulin Detemir (Levemir Vial) 32 units SQ AM [facility] Last Admin: 09/15/19 06:09 Dose: 32 units Levofloxacin (Levaquin -) 250 mg PO DAILY@0600 [facility] Stop: 09/16/19 07:00 Last Admin: 09/15/19 06:10 Dose: 250 mg Nebivolol (Bystolic -) 2.5 mg PO HS [facility] Last Admin: 09/14/19 22:35 Dose: 2.5 mg Nystatin (Nystop Powder -) 1 applic TP BID [facility] Last Admin: 09/14/19 22:57 Dose: 1 applic Ondansetron HCl (Zofran Injection) 4 mg IVPUSH Q6H PRN PRN Reason: NAUSEA AND/OR VOMITING Tamsulosin HCl (Flomax -) 0.4 mg PO BID@0830,2200 [facility] Last Admin: 09/14/19 22:35 Dose: 0.4 mg - Objective Vital Signs: Vital Signs Temperature 97.9 F 09/15/19 06:00 Pulse Rate 69 09/15/19 06:00 Respiratory Rate 20 09/15/19 06:00 Blood Pressure 126/72 09/15/19 06:00 O2 Sat by Pulse Oximetry (%) 96 09/14/19 21:00 Constitutional: Yes: Well Nourished Eyes: Yes: WNL, Conjunctiva Clear HENT: Yes: WNL, Atraumatic, Normocephalic Neck: Yes: WNL, Supple, Trachea Midline Cardiovascular: Yes: WNL, Regular Rate and Rhythm Respiratory: Yes: WNL, Regular, CTA Bilaterally Gastrointestinal: Yes: WNL, Normal Bowel Sounds Musculoskeletal: Yes: WNL Extremities: Yes: WNL Edema: No Integumentary: Yes: WNL Neurological: Yes: WNL, Alert, Oriented ...Motor Strength: WNL Psychiatric: Yes: WNL Labs: CBC, BMP 09/15/19 05:20 09/15/19 05:20 INR, PTT INR 1.42 (0.83-1.09) H 09/14/19 06:38 Impression/Plan Impression/Plan: Gross hematuria,BPH,Acute on chronic kidney injury Acute cystitis, s/p turp, hematuria resolved, --Monitor CBC ANEMIC , WILL START IRON, --Continue Proscar 5mg qdaily --Continue Flomax 0.4mg BID --Continue Levaquin 250mg qdaily for cystitis -KIKI< -Cr decreasing, however monitor for acute changes --better, --Avoid nephrotoxic agents, DKA resolved , dm still uncintrolled -inc Levemir 35 units AM --increase Continue premeal Novolog 10 U ACLD --Continue ISS for breakthrough coverage --Monitor glucose levels dementia, --Continue Aricept 10mg and Lexapro 10mg qdaily CAD s/p CABG, stable, Hx HTN, controlled, Hx HLD COPD, not in exacerbation, stbabe FEN: Fluids: PO Electrolyte abnormalities: monitor, Nutrition: 1800 ada , diet, PPX: DVT - scds Visit type - Emergency Visit Emergency Visit: No - New Patient This patient is new to me today: No - Critical Care Critical Care patient: No - Discharge Referral Referred to [facility] No
--- NOTE | 2019-09-15 10:33 | PN ---
Progress Note, Physician History of Present Illness: stable improving heamturia has cleared in the room - Current Medication List Current Medications: Active Medications Acetaminophen (Tylenol -) 650 mg PO Q4H PRN PRN Reason: FEVER Last Admin: 09/08/19 18:00 Dose: 650 mg Atorvastatin Calcium (Lipitor -) 40 mg PO HS [facility] Last Admin: 09/14/19 22:35 Dose: 40 mg Donepezil HCl (Aricept -) 10 mg PO DAILY [facility] Last Admin: 09/14/19 09:32 Dose: 10 mg Ezetimibe (Zetia -) 10 mg PO HS [facility] Last Admin: 09/14/19 22:57 Dose: 10 mg Escitalopram Oxalate (Lexapro -) 10 mg PO DAILY [facility] Last Admin: 09/14/19 09:32 Dose: 10 mg Finasteride (Proscar -) 5 mg PO DAILY [facility] Last Admin: 09/14/19 09:32 Dose: 5 mg Lactated Ringer's (Lactated Ringers Solution) 1,000 mls @ 75 mls/hr IV ASDIR [facility] Last Admin: 09/14/19 22:34 Dose: Not Given Insulin Aspart (Novolog Vial Sliding Scale -) 1 vial SQ ACHS [facility]; Protocol Last Admin: 09/15/19 06:09 Dose: 6 units Insulin Aspart (Novolog Vial) 8 units SQ ACLD [facility] Last Admin: 09/14/19 17:00 Dose: 8 units Insulin Detemir (Levemir Vial) 32 units SQ AM [facility] Last Admin: 09/15/19 06:09 Dose: 32 units Levofloxacin (Levaquin -) 250 mg PO DAILY@0600 [facility] Stop: 09/16/19 07:00 Last Admin: 09/15/19 06:10 Dose: 250 mg Nebivolol (Bystolic -) 2.5 mg PO HS [facility] Last Admin: 09/14/19 22:35 Dose: 2.5 mg Nystatin (Nystop Powder -) 1 applic TP BID [facility] Last Admin: 09/14/19 22:57 Dose: 1 applic Ondansetron HCl (Zofran Injection) 4 mg IVPUSH Q6H PRN PRN Reason: NAUSEA AND/OR VOMITING Tamsulosin HCl (Flomax -) 0.4 mg PO BID@0830,2200 [facility] Last Admin: 09/14/19 22:35 Dose: 0.4 mg - Objective Vital Signs: Vital Signs Temperature 97.9 F 09/15/19 06:00 Pulse Rate 69 09/15/19 06:00 Respiratory Rate 20 09/15/19 06:00 Blood Pressure 126/72 09/15/19 06:00 O2 Sat by Pulse Oximetry (%) 96 09/14/19 21:00 Constitutional: Yes: No Distress, Calm Cardiovascular: Yes: S1, S2 Respiratory: Yes: Regular, CTA Bilaterally Gastrointestinal: Yes: Normal Bowel Sounds, Soft Genitourinary: Yes: Strong Present Musculoskeletal: Yes: WNL Extremities: Yes: WNL Neurological: Yes: Alert, Other Psychiatric: Yes: Other Labs: CBC, BMP 09/15/19 05:20 09/15/19 05:20 INR, PTT INR 1.42 (0.83-1.09) H 09/14/19 06:38 Assessment/Plan 79 year old man with a history of HTN, hyperlipidemia, CAD, MA, CABG, chronic diastolic heart failure, type 2 DM, stage 3 CKD, COPD, dementia who presented to the ED with altered mental status. 1. Acute metabolic encephalopathy 2. Acute kidney injury 3. Abdominal pain 4. UTI 5. Lactic acidosis 6. Hypernatremia 7. Hypophosphatemia 8. HTN 9. Hyperlipidemia 10. CAD, history of MA, CABG 11. Chronic diastolic heart failure 12. Stage 3 CKD 13. COPD 14. Alzheimer dementia plan continue current mgmt monitor monitor for output nephro on case rest as per the team
[2019-09-15] MEDS: DONEPEZIL HCL 10 MG TABLET (FP) PO SCH (10:43)
[2019-09-15] MEDS: TAMSULOSIN HCL 0.4 MG CAP PO SCH ×2 (10:43→21:48)
[2019-09-15] MEDS: ESCITALOPRAM OXALATE 10 MG TABLET (FP) PO SCH (10:43)
[2019-09-15] MEDS: NYSTATIN POWDER 100,000 UNITS/GM - 15 GM TOPICAL POWDER TP SCH ×2 (10:43→21:49)
[2019-09-15] MEDS: FINASTERIDE 5 MG TABLET (FP) PO SCH (10:44)
[2019-09-15] MEDS: INSULIN (NOVOLOG) ASPART 100 UNITS/ML 10ML VIAL SQ SCH ×2 (11:27→16:24)
--- NOTE | 2019-09-15 15:30 | PN ---
Progress Note (short form) - Note Progress Note: UROLOGY NOTE. POD#2 S/P CLOT EVACUATION AND TURP/TUVP, BROUSSARD WITH CBI IS CLEAR, NO CLOTS, ABD.-SOFT, N/T BS++ .PLAN- D/C CBI IN AM.
[2019-09-15] MEDS: ATORVASTATIN CA 40 MG TABLET (FP) PO SCH (21:48)
[2019-09-15] MEDS: FERROUS SO4 325 MG TABLET (FP) PO SCH (21:48)
[2019-09-15] MEDS: EZETIMIBE 10 MG TABLET (FP) PO SCH (21:48)
[2019-09-15] MEDS: NEBIVOLOL 2.5 MG TABLET (FP) PO SCH (21:48)
[2019-09-15] MEDS: LACTATED RINGERS SOLUTION 1,000 ML IV SCH (22:32)
[2019-09-16] MEDS: INSULIN SLIDING SCALE (NOVOLOG) 1 VIAL SQ SCH ×4 (06:14→22:27)
[2019-09-16] MEDS ORDERED: INSULIN (LEVEMIR) 100 UNITS/ML UNITS SQ SCH (07:00)
[2019-09-16 07:46] LABS: BASO % 0.9 % (0-2.0); EOS % 4.1 % (0-4.5); HEMATOCRIT 27.6 % (35.4-49); HEMOGLOBIN 9.4 GM/dL (11.7-16.9); LYMPH % 14.7 % (8-40); MEAN CELL VOLUME 88.1 fl (80-96); MEAN PLT VOLUME 8.2 fl (7.5-11.1); MONO % 8.8 % (3.8-10.2); NEUT % 71.5 % (42.8-82.8); PLATELET COUNT 197 K/MM3 (134-434); RBC 3.13 M/mm3 (4.00-5.60); RDW 15.5 % (11.9-15.9); WHITE BLOOD COUNT 9.1 K/mm3 (4.0-10.0)
--- NOTE | 2019-09-16 07:49 | DS ---
Physical Exam: SUBJECTIVE: HPI limited due to clinical condition. OBJECTIVE: Vital Signs Period Temp Pulse Resp BP Sys/Poole Pulse Ox Last 24 Hr 97.9 F-98.5 F 69-72 20-20 120-120/58-63 97-97 PHYSICAL EXAM PE: Gen: NAD, easily arousable Lungs: CTA b/l, no wheezes. On RA CARD: RRR no M/m/r ABD: Soft, Nt/ND, normoactive BS : Arguello catheter in place with clearing hematuria (pink today) Ext: No edema, pulses intact througout LABS Laboratory Results - last 24 hr 09/12/19 09/15/19 09/15/19 18:00 05:20 11:24 Sodium 138 Potassium 4.9 Chloride 104 Carbon Dioxide 25 Anion Gap 8 BUN 17.3 Creatinine 1.1 Est GFR (CKD-EPI)AfAm 73.61 Est GFR (CKD-EPI)NonAf 63.51 POC Glucometer 241 Random Glucose 257 H Calcium 7.9 L Iron 25 L TIBC 144 L Iron Saturation 17 L Unsaturated IBC 119 L Ferritin 145.5 Total Bilirubin 0.6 AST 16 ALT 18 Alkaline Phosphatase 86 Total Protein 5.5 L Albumin 2.1 L Blood Type O POSITIVE Antibody Screen Negative Crossmatch See Detail 09/15/19 09/15/19 09/16/19 16:21 22:08 06:11 Sodium Potassium Chloride Carbon Dioxide Anion Gap BUN Creatinine Est GFR (CKD-EPI)AfAm Est GFR (CKD-EPI)NonAf POC Glucometer 279 112 226 Random Glucose Calcium Iron TIBC Iron Saturation Unsaturated IBC Ferritin Total Bilirubin AST ALT Alkaline Phosphatase Total Protein Albumin Blood Type Antibody Screen Crossmatch Active Medications Acetaminophen (Tylenol -) 650 mg PO Q4H PRN PRN Reason: FEVER Last Admin: 09/08/19 18:00 Dose: 650 mg Atorvastatin Calcium (Lipitor -) 40 mg PO HS [facility] Last Admin: 09/15/19 21:48 Dose: 40 mg Donepezil HCl (Aricept -) 10 mg PO DAILY [facility] Last Admin: 09/16/19 12:29 Dose: 10 mg Ezetimibe (Zetia -) 10 mg PO HS [facility] Last Admin: 09/15/19 21:48 Dose: 10 mg Escitalopram Oxalate (Lexapro -) 10 mg PO DAILY [facility] Last Admin: 09/16/19 12:28 Dose: 10 mg Ferrous Sulfate (Feosol -) 325 mg PO BIDWM [facility] Last Admin: 09/16/19 18:51 Dose: 325 mg Finasteride (Proscar -) 5 mg PO DAILY [facility] Last Admin: 09/16/19 12:28 Dose: 5 mg Insulin Aspart (Novolog Vial Sliding Scale -) 1 vial SQ ACHS [facility]; Protocol Last Admin: 09/16/19 17:30 Dose: 8 units Insulin Aspart (Novolog Vial) 10 units SQ ACLD [facility] Last Admin: 09/16/19 17:30 Dose: 10 units Insulin Detemir (Levemir Vial) 40 units SQ AM [facility] Nebivolol (Bystolic -) 2.5 mg PO HS [facility] Last Admin: 09/15/19 21:48 Dose: 2.5 mg Nystatin (Nystop Powder -) 1 applic TP BID [facility] Last Admin: 09/16/19 12:29 Dose: 1 applic Ondansetron HCl (Zofran Injection) 4 mg IVPUSH Q6H PRN PRN Reason: NAUSEA AND/OR VOMITING Tamsulosin HCl (Flomax -) 0.4 mg PO BID@0830,2200 [facility] Last Admin: 09/16/19 12:28 Dose: 0.4 mg Microbiology 09/01/19 23:00 Blood - Peripheral Venous Blood Culture - Final NO GROWTH AFTER 5 DAYS INCUBATION 09/01/19 23:00 Blood - Peripheral Venous Blood Culture - Final NO GROWTH AFTER 5 DAYS INCUBATION 09/01/19 21:16 Urine - Urine Arguello Urine Culture - Final Strep Agalactiae Group B Mr S Aureus Staphylococcus Coagulase Neg IMAGING: ABD U/S: IMPRESSION: Limited examination likely due to the patient's body habitus. The liver appears to be slightly hyperechoic suggestive of mild fatty infiltration versus hepatocellular disease. No gross gallstones identified. Borderline thickening of the gallbladder wall without evidence of acute cholecystitis. Nonvisualization of the pancreas. Nonvisualization of the abdominal aorta and inferior vena cava. Right renal simple cyst measuring 2.1 cm. Abd/Pelvis CT: IMPRESSION: Constipation. Mild fullness of the collecting system with a dilated bladder which could represent reflux. Paraumbilical hernia with no stranding. Hiatal hernia seen previously. Renal cysts. Head CT: IMPRESSION: No significant interval change Moderate to marked ventricular dilatation with a lateral and third ventricles are relatively more dilated than for. Degree of the ventricular dilatation is more than expected for the degree of cortical atrophy. 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 Otherwise, no interval acute intracranial pathology is identified. A preliminary report was forwarded by the [facility] service, HOSPITAL COURSE: Date of Admission:09/01/19 Date of Discharge: 09/16/19 Pt admitted to hospital on 09/01/19 due to HHS. Pt was placed on insulin gtt and HHS protocol until which he was able to transition to the floor alongside of subcutaneously insulin. Pt was seen by endocrinology with final insulin regiment being Levemir 15U BID, Novolog 2U before Lunch and dinner, alongside of ISS for further coverage if needed. During patient's workup he was found to have MRSA UTI which is being treated with Doxycycline 100mg BID for a total of 5 days. Unfortunately patient was given trial of void period where he did not void for 24hrs. Arguello was placed, tamsulosin was increased to 0.4mg BID alongside of newly added Proscar 5mg qdaily. Pt's hospitalization was prolonged 2/2 to insurance denial and denial of appeal. Unfortunately at this point pt began to have gross hematuria for which urology was consulted. Pt was assessed and underwent cystoscopy with Dr. Carolyne Morris revealing blood near prostate with clots. Pt received a TURP and was placed on CBI which has now been ceased. Pt has had no other signs of hematuria since CBI has been stopped. In addition, pt' s glycemic control remains difficult to control and has been increased to Levemir 35U AM and pre-lunch/dinner ] Minutes to complete discharge: 33 <Stevie Grubbs - Last Filed: 09/17/19 06:15> Physical Exam: VS, labs, imaging reviewed NAD, AAO, resting in bed RRR s1/2 no mgr Scattered crackles improved from yesterday, w. sym exp NT ND +BS CN2-12 wnl, no fnd At baseline without any acute agitation but will become upset when redirected and refuses some therapy. Overall the plan is to discharge home with services. Agree with plan as outlined in resident note. To the reader, please pardon the multiple DC summaries thorughout the stay. Multiple DC attempts were planned and failed due to outside issues. <Yurkiw,Hernesto - Last Filed: 09/20/19 07:24> Discharge Summary Problems reviewed: Yes Reason For Visit: ACUTE KIDNEY INJURY, DIABETIC KETOACIDOSIS, COLITI Current Active Problems KIKI (acute kidney injury) (Acute) DKA (diabetic ketoacidoses) (Acute) Obesity (BMI 30-39.9) (Chronic) - Home Medications Comprehensive Discharge Medication List: Ambulatory Orders Atorvastatin Ca [Lipitor] 40 mg PO DAILY 05/06/19 Clopidogrel Bisulfate [Plavix] 75 mg PO DAILY 05/06/19 Ezetimibe 10 mg PO HS 05/06/19 Nebivolol HCl [Bystolic] 2.5 mg PO HS 05/06/19 Tamsulosin HCl 0.4 mg PO DAILY 05/06/19 Compression Socks, Medium [Futuro Restoring] 1 each [facility] DAILY #1 each 09/06/19 Donepezil HCl [Aricept -] 5 mg PO DAILY tablet 09/06/19 Doxycycline Hyclate [Vibramycin -] 100 mg PO BID@1000,1800 3 Days #6 capsule 10/15 Escitalopram Oxalate [Lexapro -] 10 mg PO DAILY tablet 09/06/19 Insulin (Levemir) [Levemir Vial] 15 units SQ BID@0700,2200 units 09/06/19 Insulin Aspart [Novolog] 2 unit SQ ACLD #1 cartridge 09/06/19 Insulin Sliding Scale [Novolog Vial Sliding Scale -] 1 vial SQ ACHS units 09/06 Tamsulosin HCl 0.4 mg PO BID #60 capsule 09/06/19 <Stevie Grubbs - Last Filed: 09/17/19 06:15> Current Active Problems KIKI (acute kidney injury) (Acute) DKA (diabetic ketoacidoses) (Acute) Obesity (BMI 30-39.9) (Chronic) - Home Medications Comprehensive Discharge Medication List: Ambulatory Orders Atorvastatin Ca [Lipitor] 40 mg PO DAILY 05/06/19 Clopidogrel Bisulfate [Plavix] 75 mg PO DAILY 05/06/19 Ezetimibe 10 mg PO HS 05/06/19 Nebivolol HCl [Bystolic] 2.5 mg PO HS 05/06/19 Tamsulosin HCl 0.4 mg PO DAILY 05/06/19 Compression Socks, Medium [Futuro Restoring] 1 each MC DAILY #1 each 09/06/19 Donepezil HCl [Aricept -] 5 mg PO DAILY tablet 09/06/19 Doxycycline Hyclate [Vibramycin -] 100 mg PO BID@1000,1800 3 Days #6 capsule 10/15 Escitalopram Oxalate [Lexapro -] 10 mg PO DAILY tablet 09/06/19 Insulin (Levemir) [Levemir Vial] 15 units SQ BID@0700,2200 units 09/06/19 Insulin Aspart [Novolog] 2 unit SQ ACLD #1 cartridge 09/06/19 Insulin Sliding Scale [Novolog Vial Sliding Scale -] 1 vial SQ ACHS units 09/06 Tamsulosin HCl 0.4 mg PO BID #60 capsule 09/06/19 <Hernesto Cook - Last Filed: 09/20/19 07:24> Condition: Stable - Instructions Diet, Activity, Other Instructions: Please STOP using the insulin pump Instead you will be using Levemir 34 qAM Novolog 2U with Lunch and Dinner Sliding scale as below for NEEDED coverage: 100-150 0units 151-200 4units 201-250 6units 251-300 8units 301-350 10units 351-400 12 units >400 14 units and go to the ER or call a doctor You have completed antibiotics Also continue taking Aricept 10mg daily and Lexapro 10mg daily as suggested by the neurologist Continue Proscar 5mg daily. We increased your Tamsulosin to 0.4mg TWICE daily and please use compression stockings to help with any orthostatic hypotension seen Diet: Puree diet diabetic and sodium controlled with thin liquids Follow-up with Dr. Yamila Morris regarding the arguello catheter within 3-5 days. Please maintain the arguello catheter with proper care the [facility] facility Follow-up with Dr. Lynch for the diabetes. Follow-up with Dr. Shahid in 3-5 days to update them on your care Follow-up with the rest of the referrals as above Referrals: Xochitl Shahid MD [Staff Physician] - Yoni Lynch MD [Staff Physician] - 2 Weeks Yamila Morris MD [Staff Physician] - 1 Week Jeannie Edwards MD [Staff Physician] - 1 Week Sintia Belle DPM [Staff Physician] - 1 Month (For diabetic foot checks) Disposition: VNS/HOME HEALTH CARE This patient is new to me today: No Emergency Visit: Yes ED Registration Date: 09/01/19 Care time: The patient presented to the Emergency Department on the above date and was hospitalized for further evaluation of their emergent condition. Critical Care patient: No - Discharge Referral Referred to [facility] No <Stevie Grubbs - Last Filed: 09/17/19 06:15> ATTENDING PHYSICIAN STATEMENT I saw and evaluated the patient. I reviewed the resident's note and discussed the case with the resident. I agree with the resident's findings and plan as documented. SUBJECTIVE: OBJECTIVE: ASSESSMENT AND PLAN: <Stevie Grubbs - Last Filed: 09/17/19 06:15> ATTENDING PHYSICIAN STATEMENT I saw and evaluated the patient. I reviewed the resident's note and discussed the case with the resident. I agree with the resident's findings and plan as documented. SUBJECTIVE: OBJECTIVE: ASSESSMENT AND PLAN: <Hernesto Cook - Last Filed: 09/20/19 07:24>
[2019-09-16 08:16] LABS: BILIRUBIN,TOTAL 0.7 mg/dL (0.2-1); CALCIUM 7.8 mg/dL (8.5-10.1); CREATININE 1.1 mg/dL (0.55-1.3); POTASSIUM 4.8 mmol/L (3.5-5.1); TOT PROT 5.3 g/dl (6.4-8.2)
--- NOTE | 2019-09-16 09:28 | PN ---
Progress Note, Physician History of Present Illness: stable no new issues - Current Medication List Current Medications: Active Medications Acetaminophen (Tylenol -) 650 mg PO Q4H PRN PRN Reason: FEVER Last Admin: 09/08/19 18:00 Dose: 650 mg Atorvastatin Calcium (Lipitor -) [address] [facility] Last Admin: 09/15/19 21:48 Dose: 40 mg Donepezil HCl (Aricept -) [address] [facility] Last Admin: 09/15/19 10:43 Dose: 10 mg Ezetimibe (Zetia -) [address] [facility] Last Admin: 09/15/19 21:48 Dose: 10 mg Escitalopram Oxalate (Lexapro -) [address] [facility] Last Admin: 09/15/19 10:43 Dose: 10 mg Ferrous Sulfate (Feosol -) [address] [facility] Last Admin: 09/15/19 21:48 Dose: 325 mg Finasteride (Proscar -) [address] [facility] Last Admin: 09/15/19 10:44 Dose: 5 mg Lactated Ringer's (Lactated Ringers Solution) 1,000 mls @ 75 mls/hr IV ASDIR [facility] Last Admin: 09/15/19 22:32 Dose: 75 mls/hr Insulin Aspart (Novolog Vial Sliding Scale -) [address] [facility]; Protocol Last Admin: 09/16/19 06:14 Dose: 4 units Insulin Aspart (Novolog Vial) [address] [facility] Last Admin: 09/15/19 16:24 Dose: 10 units Insulin Detemir (Levemir Vial) [address] [facility] Last Admin: 09/16/19 06:10 Dose: 35 units Nebivolol (Bystolic -) 2.[address] [facility] Last Admin: 09/15/19 21:48 Dose: 2.5 mg Nystatin (Nystop Powder -) [address] [facility] Last Admin: 09/15/19 21:49 Dose: 1 applic Ondansetron HCl (Zofran Injection) 4 mg IVPUSH Q6H PRN PRN Reason: NAUSEA AND/OR VOMITING Tamsulosin HCl (Flomax -) 0.4 mg PO BID@0830,2200 [facility] Last Admin: 09/15/19 21:48 Dose: 0.4 mg - Objective Vital Signs: Vital Signs Temperature 97.9 F 09/15/19 20:11 Pulse Rate 72 09/15/19 20:11 Respiratory Rate 20 09/15/19 20:11 Blood Pressure 120/63 09/15/19 20:11 O2 Sat by Pulse Oximetry (%) 97 09/15/19 21:00 Constitutional: Yes: No Distress, Calm Cardiovascular: Yes: S1, S2 Respiratory: Yes: Regular, CTA Bilaterally Gastrointestinal: Yes: Normal Bowel Sounds, Soft Musculoskeletal: Yes: WNL Extremities: Yes: WNL Neurological: Yes: Alert Psychiatric: Yes: Other Labs: CBC, BMP 09/16/19 06:10 09/16/19 06:10 INR, PTT INR 1.42 (0.83-1.09) H 09/14/19 06:38 Assessment/Plan 79 year old man with a history of HTN, hyperlipidemia, CAD, PA, CABG, chronic diastolic heart failure, type 2 DM, stage 3 CKD, COPD, dementia who presented to the ED with altered mental status. 1. Acute metabolic encephalopathy 2. Acute kidney injury 3. Abdominal pain 4. UTI 5. Lactic acidosis 6. Hypernatremia 7. Hypophosphatemia 8. HTN 9. Hyperlipidemia 10. CAD, history of PA, CABG 11. Chronic diastolic heart failure 12. Stage 3 CKD 13. COPD 14. Alzheimer dementia plan continue current mgmt monitor monitor for output nephro on case rest as per the team
--- NOTE | 2019-09-16 09:40 | PN ---
Progress Note (short form) - Note Progress Note: UROLOGY NOTE. POD#3 S/P TURP/TUVP BROUSSARD-PATENT,URINE-CLEAR, ABD.-SOFT,N/T PLAN-F/U IN OFFICE
--- NOTE | 2019-09-16 11:39 | PN ---
Progress Note, Physician History of Present Illness: Pt seen and examined at bedside. He appears comfortable. He denies shortness of breath. is at bedside and care was discussed with her. - Current Medication List Current Medications: Active Medications Acetaminophen (Tylenol -) 650 mg PO Q4H PRN PRN Reason: FEVER Last Admin: 09/08/19 18:00 Dose: 650 mg Atorvastatin Calcium (Lipitor -) 40 mg PO HS [facility] Last Admin: 09/15/19 21:48 Dose: 40 mg Donepezil HCl (Aricept -) 10 mg PO DAILY [facility] Last Admin: 09/15/19 10:43 Dose: 10 mg Ezetimibe (Zetia -) 10 mg PO HS [facility] Last Admin: 09/15/19 21:48 Dose: 10 mg Escitalopram Oxalate (Lexapro -) 10 mg PO DAILY [facility] Last Admin: 09/15/19 10:43 Dose: 10 mg Ferrous Sulfate (Feosol -) 325 mg PO BIDWM [facility] Last Admin: 09/15/19 21:48 Dose: 325 mg Finasteride (Proscar -) 5 mg PO DAILY [facility] Last Admin: 09/15/19 10:44 Dose: 5 mg Lactated Ringer's (Lactated Ringers Solution) 1,000 mls @ 75 mls/hr IV ASDIR [facility] Last Admin: 09/15/19 22:32 Dose: 75 mls/hr Insulin Aspart (Novolog Vial Sliding Scale -) 1 vial SQ ACHS [facility]; Protocol Last Admin: 09/16/19 06:14 Dose: 4 units Insulin Aspart (Novolog Vial) 10 units SQ ACLD [facility] Last Admin: 09/15/19 16:24 Dose: 10 units Insulin Detemir (Levemir Vial) 35 units SQ AM [facility] Last Admin: 09/16/19 06:10 Dose: 35 units Nebivolol (Bystolic -) 2.5 mg PO HS [facility] Last Admin: 09/15/19 21:48 Dose: 2.5 mg Nystatin (Nystop Powder -) 1 applic TP BID [facility] Last Admin: 09/15/19 21:49 Dose: 1 applic Ondansetron HCl (Zofran Injection) 4 mg IVPUSH Q6H PRN PRN Reason: NAUSEA AND/OR VOMITING Tamsulosin HCl (Flomax -) 0.4 mg PO BID@0830,2200 [facility] Last Admin: 09/15/19 21:48 Dose: 0.4 mg - Objective Vital Signs: Vital Signs Temperature 97.9 F 09/15/19 20:11 Pulse Rate 72 09/15/19 20:11 Respiratory Rate 20 09/15/19 20:11 Blood Pressure 120/63 09/15/19 20:11 O2 Sat by Pulse Oximetry (%) 97 09/15/19 21:00 Constitutional: Yes: Calm Eyes: Yes: Other (legally blind) HENT: Yes: Atraumatic Cardiovascular: Yes: S1, S2 Respiratory: Yes: CTA Bilaterally Gastrointestinal: Yes: Normal Bowel Sounds, Soft Genitourinary: Yes: Strong Present Musculoskeletal: Yes: Muscle Weakness Edema: LLE: Trace, RLE: Trace Neurological: Yes: Confusion Labs: CBC, BMP 09/16/19 06:10 09/16/19 06:10 INR, PTT INR 1.42 (0.83-1.09) H 09/14/19 06:38 Problem List - Problems (1) KIKI (acute kidney injury) Code(s): N17.9 - ACUTE KIDNEY FAILURE, UNSPECIFIED (2) DKA (diabetic ketoacidoses) Code(s): E11.10 - TYPE 2 DIABETES MELLITUS WITH KETOACIDOSIS WITHOUT COMA Qualifiers: Diabetes mellitus type: type 2 Diabetes mellitus complication detail: without coma Qualified Code(s): E11.10 - Type 2 diabetes mellitus with ketoacidosis without coma (3) Acute renal failure Code(s): N17.9 - ACUTE KIDNEY FAILURE, UNSPECIFIED (4) Hypernatremia Code(s): E87.0 - HYPEROSMOLALITY AND HYPERNATREMIA Assessment/Plan Current Medications Generic Name Dose Route Start Last Admin Trade Name Freq PRN Reason Stop Dose Admin Acetaminophen 650 mg 09/04/19 10:34 09/08/19 18:00 Tylenol - PO 650 mg Q4H PRN Administration FEVER Atorvastatin Calcium 40 mg 09/02/19 22:00 09/15/19 21:48 Lipitor - PO 40 mg HS DAISHA Administration Donepezil HCl 10 mg 09/11/19 10:00 09/15/19 10:43 Aricept - PO 10 mg DAILY [facility] Administration Ezetimibe 10 mg 09/02/19 22:00 09/15/19 21:48 Zetia - PO 10 mg HS [facility]ISHA Administration Escitalopram Oxalate 10 mg 09/11/19 10:00 09/15/19 10:43 Lexapro - PO 10 mg DAILY [facility] Administration Ferrous Sulfate 325 mg 09/15/19 17:30 09/15/19 21:48 Feosol - PO 325 mg BIDWM DAISHA Administration Finasteride 5 mg 09/11/19 10:00 09/15/19 10:44 Proscar - PO 5 mg DAILY [facility] Administration Lactated Ringer's 1,000 mls @ 75 mls/hr 09/13/19 17:15 09/15/19 22:32 Lactated Ringers Solution IV 75 mls/hr ASDIR [facility] Administration Insulin Aspart 1 vial 09/05/19 00:52 09/16/19 06:14 Novolog Vial Sliding Scale - SQ 4 units ACHS [facility] Administration Protocol Insulin Aspart 10 units 09/15/19 16:30 09/15/19 16:24 Novolog Vial SQ 10 units ACLD [facility] Administration Insulin Detemir 35 units 09/16/19 07:00 09/16/19 06:10 Levemir Vial SQ 35 units AM [facility] Administration Nebivolol 2.5 mg 09/02/19 22:00 09/15/19 21:48 Bystolic - PO 2.5 mg HS [facility] Administration Nystatin 1 applic 09/05/19 11:30 09/15/19 21:49 Nystop Powder - TP 1 applic BID [facility] Administration Ondansetron HCl 4 mg 09/13/19 17:01 Zofran Injection IVPUSH Q6H PRN NAUSEA AND/OR VOMITING Tamsulosin HCl 0.4 mg 09/11/19 08:45 09/15/19 21:48 Flomax - PO 0.4 mg BID@0830,2200 DAISHA Administration Impression 1. KIKI 2. DKA 3. hypernatremia 4. DM 5. dementia 6. cad 7. hyperkalemia Plan - renal function is stable - can d/c fluids - will see pt in office - discussed diet with - will need better glucose control - will also need urology follow up after discharge
[2019-09-16] MEDS: ESCITALOPRAM OXALATE 10 MG TABLET (FP) PO SCH (12:28)
[2019-09-16] MEDS: FINASTERIDE 5 MG TABLET (FP) PO SCH (12:28)
[2019-09-16] MEDS: FERROUS SO4 325 MG TABLET (FP) PO SCH ×2 (12:28→18:51)
[2019-09-16] MEDS: TAMSULOSIN HCL 0.4 MG CAP PO SCH ×2 (12:28→22:21)
[2019-09-16] MEDS: NYSTATIN POWDER 100,000 UNITS/GM - 15 GM TOPICAL POWDER TP SCH ×2 (12:29→22:28)
[2019-09-16] MEDS: DONEPEZIL HCL 10 MG TABLET (FP) PO SCH (12:29)
[2019-09-16] MEDS: INSULIN (NOVOLOG) ASPART 100 UNITS/ML 10ML VIAL SQ SCH ×2 (12:36→17:30)
--- NOTE | 2019-09-16 15:52 | OP ---
DATE OF OPERATION: 09/13/2019 PREOPERATIVE DIAGNOSIS: Gross hematuria, clot retention, urinary retention. POSTOPERATIVE DIAGNOSIS: Hemorrhagic obstructing prostate gland, large blood clot and bladder. OPERATIVE PROCEDURE: Cystourethroscopy, evacuation of clots, TUR of hemorrhagic prostate, fulguration of bleeding. ANESTHESIA: General. Under above-stated anesthesia, patient was prepped and draped in the usual sterile manner. He is placed in the dorsal lithotomy position. Strong catheter was in place, and there was bright red blood in Strong. Strong was removed. Cystoscopy revealed a normal anterior urethra. Prostatic urethra revealed severe hemorrhagic bipolar hypertrophy of the prostate. There was active bleeding throughout the right and left lobe. The bladder was entered. A large clot was seen in the bladder encompassing 80% of the lumen. Therefore an Ellik evacuator was introduced, and the clot was evacuated after vigorous irrigation with an Ellik evacuator. Inspection of the bladder revealed no lesions. Ureteral orifices were within normal limits with efflux of clear urine. The dome was clear. Multiple areas on the prostate were bleeding, therefore resection of the prostate was commenced at the 6 o'clock position of the right lateral lobe. This was carried on up to the 12 o'clock position. The same thing was done to the left lateral lobe. The prostate chips were evacuated with an Ellik evacuator. Again hemostasis was secured with electrocoagulation. No active bleeding was noted. The bladder was emptied. The scope was removed. The [address] 3-way 30 mL Strong was inserted. This was connected to continuous bladder irrigation. The patient tolerated the procedure well. He returned to the recovery room in good condition. Idris [id number]
[2019-09-16] MEDS: ATORVASTATIN CA 40 MG TABLET (FP) PO SCH (22:20)
[2019-09-16] MEDS: NEBIVOLOL 2.5 MG TABLET (FP) PO SCH (22:20)
[2019-09-16] MEDS: EZETIMIBE 10 MG TABLET (FP) PO SCH (22:28)
[2019-09-17] MEDS: INSULIN (LEVEMIR) 100 UNITS/ML UNITS SQ SCH (06:57)
[2019-09-17] MEDS: INSULIN SLIDING SCALE (NOVOLOG) 1 VIAL SQ SCH ×4 (06:58→22:49)
[2019-09-17] MEDS ORDERED: INSULIN (LEVEMIR) 100 UNITS/ML UNITS SQ ONE (07:09)
[2019-09-17] MEDS ORDERED: INSULIN (NOVOLOG) ASPART 100 UNITS/ML 10ML VIAL ONE ×2 (07:09→11:08)
[2019-09-17 08:28] LABS: HEMATOCRIT 30.9 % (35.4-49); HEMOGLOBIN 10.1 GM/dL (11.7-16.9); MCH 29.3 pg (25.7-33.7); MCHC 32.8 g/dl (32.0-35.9); MEAN CELL VOLUME 89.4 fl (80-96); MEAN PLT VOLUME 8.4 fl (7.5-11.1); PLATELET COUNT 230 K/MM3 (134-434); RBC 3.46 M/mm3 (4.00-5.60); RDW 15.4 % (11.9-15.9); WHITE BLOOD COUNT 9.2 K/mm3 (4.0-10.0)
[2019-09-17 08:54] LABS: CALCIUM 8.4 mg/dL (8.5-10.1); CREATININE 1.3 mg/dL (0.55-1.3); POTASSIUM 4.8 mmol/L (3.5-5.1)
[2019-09-17] MEDS: TAMSULOSIN HCL 0.4 MG CAP PO SCH ×2 (11:13→21:21)
[2019-09-17] MEDS: ESCITALOPRAM OXALATE 10 MG TABLET (FP) PO SCH (11:13)
[2019-09-17] MEDS: FERROUS SO4 325 MG TABLET (FP) PO SCH ×2 (11:13→18:08)
[2019-09-17] MEDS: FINASTERIDE 5 MG TABLET (FP) PO SCH (11:13)
[2019-09-17] MEDS: DONEPEZIL HCL 10 MG TABLET (FP) PO SCH (11:13)
[2019-09-17] MEDS: NYSTATIN POWDER 100,000 UNITS/GM - 15 GM TOPICAL POWDER TP SCH ×2 (11:14→21:21)
[2019-09-17] MEDS: INSULIN (NOVOLOG) ASPART 100 UNITS/ML 10ML VIAL SQ SCH ×2 (11:15→17:46)
--- NOTE | 2019-09-17 11:56 | PN ---
Progress Note, Physician History of Present Illness: stable no new issues - Current Medication List Current Medications: Active Medications Acetaminophen (Tylenol -) 650 mg PO Q4H PRN PRN Reason: FEVER Last Admin: 09/08/19 18:00 Dose: 650 mg Atorvastatin Calcium (Lipitor -) 40 mg PO HS [facility] Last Admin: 09/16/19 22:20 Dose: 40 mg Donepezil HCl (Aricept -) 10 mg PO DAILY [facility] Last Admin: 09/17/19 11:13 Dose: 10 mg Ezetimibe (Zetia -) 10 mg PO HS [facility] Last Admin: 09/16/19 22:28 Dose: 10 mg Escitalopram Oxalate (Lexapro -) 10 mg PO DAILY [facility] Last Admin: 09/17/19 11:13 Dose: 10 mg Ferrous Sulfate (Feosol -) 325 mg PO BIDWM [facility] Last Admin: 09/17/19 11:13 Dose: 325 mg Finasteride (Proscar -) 5 mg PO DAILY [facility] Last Admin: 09/17/19 11:13 Dose: 5 mg Insulin Aspart (Novolog Vial Sliding Scale -) 1 vial SQ ACHS [facility]; Protocol Last Admin: 09/17/19 11:12 Dose: 6 units Insulin Aspart (Novolog Vial) 10 units SQ ACLD [facility] Last Admin: 09/17/19 11:15 Dose: 10 units Insulin Detemir (Levemir Vial) 40 units SQ AM [facility] Last Admin: 09/17/19 06:57 Dose: 40 units Nebivolol (Bystolic -) 2.5 mg PO HS [facility] Last Admin: 09/16/19 22:20 Dose: 2.5 mg Nystatin (Nystop Powder -) 1 applic TP BID [facility] Last Admin: 09/17/19 11:14 Dose: 1 applic Ondansetron HCl (Zofran Injection) 4 mg IVPUSH Q6H PRN PRN Reason: NAUSEA AND/OR VOMITING Tamsulosin HCl (Flomax -) 0.4 mg PO BID@0830,2200 [facility] Last Admin: 09/17/19 11:13 Dose: 0.4 mg - Objective Vital Signs: Vital Signs Temperature 97.6 F 09/17/19 06:00 Pulse Rate 57 L 09/17/19 06:00 Respiratory Rate 20 09/17/19 06:00 Blood Pressure 120/56 L 09/17/19 06:00 O2 Sat by Pulse Oximetry (%) 97 09/16/19 21:00 Constitutional: Yes: No Distress, Calm Cardiovascular: Yes: S1, S2 Respiratory: Yes: Regular, CTA Bilaterally Gastrointestinal: Yes: Normal Bowel Sounds, Soft Musculoskeletal: Yes: WNL Extremities: Yes: Other Neurological: Yes: Alert, Other Psychiatric: Yes: Other Labs: CBC, BMP 09/17/19 06:30 09/17/19 06:30 INR, PTT INR 1.42 (0.83-1.09) H 09/14/19 06:38 Assessment/Plan 79 year old man with a history of HTN, hyperlipidemia, CAD, VA, CABG, chronic diastolic heart failure, type 2 DM, stage 3 CKD, COPD, dementia who presented to the ED with altered mental status. 1. Acute metabolic encephalopathy 2. Acute kidney injury 3. Abdominal pain 4. UTI 5. Lactic acidosis 6. Hypernatremia 7. Hypophosphatemia 8. HTN 9. Hyperlipidemia 10. CAD, history of VA, CABG 11. Chronic diastolic heart failure 12. Stage 3 CKD 13. COPD 14. Alzheimer dementia plan continue current mgmt monitor monitor for output nephro on case rest as per the team
--- NOTE | 2019-09-17 13:35 | PN ---
Progress Note, Physician History of Present Illness: Pt seen and examined at bedside. His hematuria is worse today. - Current Medication List Current Medications: Active Medications Acetaminophen (Tylenol -) 650 mg PO Q4H PRN PRN Reason: FEVER Last Admin: 09/08/19 18:00 Dose: 650 mg Atorvastatin Calcium (Lipitor -) 40 mg PO HS [facility] Last Admin: 09/16/19 22:20 Dose: 40 mg Donepezil HCl (Aricept -) 10 mg PO DAILY [facility] Last Admin: 09/17/19 11:13 Dose: 10 mg Ezetimibe (Zetia -) 10 mg PO HS [facility] Last Admin: 09/16/19 22:28 Dose: 10 mg Escitalopram Oxalate (Lexapro -) 10 mg PO DAILY [facility] Last Admin: 09/17/19 11:13 Dose: 10 mg Ferrous Sulfate (Feosol -) 325 mg PO BIDWM [facility] Last Admin: 09/17/19 11:13 Dose: 325 mg Finasteride (Proscar -) 5 mg PO DAILY [facility] Last Admin: 09/17/19 11:13 Dose: 5 mg Insulin Aspart (Novolog Vial Sliding Scale -) 1 vial SQ ACHS [facility]; Protocol Last Admin: 09/17/19 11:12 Dose: 6 units Insulin Aspart (Novolog Vial) 10 units SQ ACLD [facility] Last Admin: 09/17/19 11:15 Dose: 10 units Insulin Detemir (Levemir Vial) 40 units SQ AM [facility] Last Admin: 09/17/19 06:57 Dose: 40 units Nebivolol (Bystolic -) 2.5 mg PO HS [facility] Last Admin: 09/16/19 22:20 Dose: 2.5 mg Nystatin (Nystop Powder -) 1 applic TP BID [facility] Last Admin: 09/17/19 11:14 Dose: 1 applic Ondansetron HCl (Zofran Injection) 4 mg IVPUSH Q6H PRN PRN Reason: NAUSEA AND/OR VOMITING Tamsulosin HCl (Flomax -) 0.4 mg PO BID@0830,2200 [facility] Last Admin: 09/17/19 11:13 Dose: 0.4 mg - Objective Vital Signs: Vital Signs Temperature 97.6 F 09/17/19 06:00 Pulse Rate 57 L 09/17/19 06:00 Respiratory Rate 20 09/17/19 06:00 Blood Pressure 120/56 L 09/17/19 06:00 O2 Sat by Pulse Oximetry (%) 97 09/16/19 21:00 Constitutional: Yes: Calm HENT: Yes: Atraumatic Cardiovascular: Yes: S1, S2 Respiratory: Yes: CTA Bilaterally Gastrointestinal: Yes: Soft Genitourinary: Yes: WNL Edema: Yes Edema: LLE: Trace, RLE: Trace Neurological: Yes: Confusion Psychiatric: Yes: Oriented Labs: CBC, BMP 09/17/19 06:30 09/17/19 06:30 INR, PTT INR 1.42 (0.83-1.09) H 09/14/19 06:38 Problem List - Problems (1) KIKI (acute kidney injury) Code(s): N17.9 - ACUTE KIDNEY FAILURE, UNSPECIFIED (2) DKA (diabetic ketoacidoses) Code(s): E11.10 - TYPE 2 DIABETES MELLITUS WITH KETOACIDOSIS WITHOUT COMA Qualifiers: Diabetes mellitus type: type 2 Diabetes mellitus complication detail: without coma Qualified Code(s): E11.10 - Type 2 diabetes mellitus with ketoacidosis without coma (3) Acute renal failure Code(s): N17.9 - ACUTE KIDNEY FAILURE, UNSPECIFIED (4) Hypernatremia Code(s): E87.0 - HYPEROSMOLALITY AND HYPERNATREMIA Assessment/Plan Current Medications Generic Name Dose Route Start Last Admin Trade Name Freq PRN Reason Stop Dose Admin Acetaminophen 650 mg 09/04/19 10:34 09/08/19 18:00 Tylenol - PO 650 mg Q4H PRN Administration FEVER Atorvastatin Calcium 40 mg 09/02/19 22:00 09/16/19 22:20 Lipitor - PO 40 mg HS [facility] Administration Donepezil HCl 10 mg 09/11/19 10:00 09/17/19 11:13 Aricept - PO 10 mg DAILY [facility] Administration Ezetimibe 10 mg 09/02/19 22:00 09/16/19 22:28 Zetia - PO 10 mg HS [facility] Administration Escitalopram Oxalate 10 mg 09/11/19 10:00 09/17/19 11:13 Lexapro - PO 10 mg DAILY [facility] Administration Ferrous Sulfate 325 mg 09/15/19 17:30 09/17/19 11:13 Feosol - PO 325 mg BIDWM [facility] Administration Finasteride 5 mg 09/11/19 10:00 09/17/19 11:13 Proscar - PO 5 mg DAILY [facility] Administration Insulin Aspart 1 vial 09/05/19 00:52 09/17/19 11:12 Novolog Vial Sliding Scale - SQ 6 units ACHS [facility] Administration Protocol Insulin Aspart 10 units 09/15/19 16:30 09/17/19 11:15 Novolog Vial SQ 10 units ACLD [facility] Administration Insulin Detemir 40 units 09/17/19 07:00 09/17/19 06:57 Levemir Vial SQ 40 units AM [facility] Administration Nebivolol 2.5 mg 09/02/19 22:00 09/16/19 22:20 Bystolic - PO 2.5 mg HS [facility] Administration Nystatin 1 applic 09/05/19 11:30 09/17/19 11:14 Nystop Powder - TP 1 applic BID [facility] Administration Ondansetron HCl 4 mg 09/13/19 17:01 Zofran Injection IVPUSH Q6H PRN NAUSEA AND/OR VOMITING Tamsulosin HCl 0.4 mg 09/11/19 08:45 09/17/19 11:13 Flomax - PO 0.4 mg BID@0830,2200 DAISHA Administration Impression 1. KIKI 2. DKA 3. hypernatremia 4. DM 5. dementia 6. cad 7. hyperkalemia Plan - urology recalled - renal function stable - diabetic diet - will see pt in office - discussed diet with at bedside - will need better glucose control
--- NOTE | 2019-09-17 17:19 | PATH ---
Surgical Pathology Report Patient Name: CHELSI JON Med. Rec. #: [id number] /Age/Gender: 1940 (Age: 79) / M Account: [id number] Location: [facility] MED/SURG Taken: 09/13/2019 Received: 09/16/2019 Reported: 09/17/2019 Physicians: Mannie Morris Specimen(s) Received PROSTATE CHIPS Clinical History KIKI, diabetic ketoacidosis, hematuria Final Diagnosis PROSTATE TISSUE, TRANSURETHRAL RESECTION OF THE PROSTATE: BENIGN PROSTATIC TISSUE WITH PREDOMINANTLY STROMAL HYPERPLASIA, ACUTE AND CHRONIC PROSTATITIS. ADJACENT UROTHELIAL MUCOSA WITH CHRONIC INFLAMMATION. SEPARATE PORTIONS OF BLOOD CLOT. Electronically Signed Kallie Bean M.D. Gross Description Received in formalin labeled "prostate tissue," is a 2 g, 3.5 x 3.2 x 0.4 cm aggregate of hernandez, firm to rubbery portions of tissue, consistent with prostate tissue. Also received within the same container is a 14.0 x 11.0 x 2.0 cm aggregate of red-brown blood clot. The specimen is submitted in 5 cassettes as follows: 2-9-lufioomi submitted prostate tissue; 2-9-skbdhegollqipn blood clot DL/09/16/2019 saudi09/16/2019
--- NOTE | 2019-09-17 20:50 | PN ---
Addendum entered and electronically signed by Stevie Grubbs, RESIDENT 09/18/19 08:43: Physical pertaining to day of 09/17/19: Gen: NAD, awake, alert HEENT: NC/AT, ANTONIO, MMM Neck: No JVD LUNG: CTA bilaterally, however poor inspiratory effort, On RA CARD: RRR no murmurs appreciated ABD: Soft, Nt/ND, normoactive BS: : Arguello catheter in place, no bleeding from meatus, tea-coloured urine in collection bag EXT: No edema appreciated, cap refill <2sec Skin: No rashes or lesions noted Original Note: Progress Note (short form) - Note Progress Note: Spoke to sonVicky earlier around 1500h and discussed how patient's Hgb has improved, sodium and creatine have normalized, and how CBI was discontinued with expected follow-up on outpatient visit. Son verbalized understanding of this. Also reinforced pt's increased Levemir and relative improvement of glucose levels. Despite conversation pt's son had appealed discharge (notified by CM/social work) without significant reason as to what he disagrees with. Will follow-up tomorrow with appeal process. Exam remains unchanged from prior note at this time. See plan per previous note which is to continue. No labs needed in AM as patient has stabilized and is medically optimized for discharge to outpatient setting. <Stevie Grubbs - Last Filed: 09/17/19 20:46> - Note Progress Note: Seen and examined; agree with resident note aside from as supplemented below by myself. Independently reviewed all labs, vitals, and diagnostics. In addition I verified all patel historic and PE findings. No new complaints; no agitation, resting in bed, arguello draining pinkish urine without notable change from yesterday. We will discuss ongoing with urology given son's concerns. Especially given the underlying dementia with potential for trauma, we would suspect that this patient has risk for recurring hematuria , but the risks of not having a arguello with potential for clot leading to obstructing process is greater risk than not. Thus will defer to uro services. Discussed with CM regarding home services and family appeal. I spoke with Negrito extensively 10 sys ROS done and negative aside from HPI NAD, AAO, resting in bed NC AT EOMI PERRLA Neurologically unchanged; wont participate in full exam but CN2-12 wnl, moves all 4 ext with normal sensory NT ND +BS HR wnl, no fnd Lungs CTAB, w/ sym exp Skin without rashes or breakdown Not agitated, cannot do full psych exam, restricted insight and judgment secondary to clinical condition 1) DKA 2/2 issues with managing insulin pump, resolved-DC on SQ insulin 2) Uncontrolled DM -Continually adjusting insulin. Complete control has proven difficult with this patient but is preferable to the ongoing issue with pump. No further input from endo noted. 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 Can discuss therapeutic tap as needed but per neuro likely should be done OP. Will continue to monitor. 4) Acute Cystitis with Hematuria vs. Cristobal Hematuria- Abx per ID; continue to monitor. Ongoing trauma 2/2 underlying dementia vs. infectious origin. 5) Urinary Obstruction - Continue tamsulosin and finasteride. 6) KIKI on CKD-III, improved - Improved to resolve, underlying CKD likely secondary to diabetes mellitus being so uncontrolled. We will continue to monitor. He should follow-up with his management psychologist upon discharge. 7) Hx CAD s/p CABG *There is no documented history of any recent stents, etc. etc. that would necessitate the absolute use of Plavix. However the patient's hemoglobin went from 9-10, which does not endorse any worsening bleeding. Due to this, I will elect to continue it from now, and I will speak with resident team about obtaining more records so we can elucidate the patient's full cardiac history and discontinue this medication if indeed is not indicated. He is not having any chest pain or atypical cardiac symptoms are apparent to myself or nursing. 8) Underlying Dementia (documented as Alzheimer's Type) *Worsened by NPH and likely toxic metabolic encephalopathy due to the acute issues. Son tells me that he transfers and ambulates on his own. 9) Hx D-CHF 10) Lactic Acidosis, resolved 11) Hypernatremia, resolved 12) Hx HTN 13) Hx HLD 14) Hx COPD, no acute exacerbation <Hernesto Cook - Last Filed: 09/20/19 07:34>
[2019-09-17] MEDS: EZETIMIBE 10 MG TABLET (FP) PO SCH (21:19)
[2019-09-17] MEDS: ATORVASTATIN CA 40 MG TABLET (FP) PO SCH (21:20)
[2019-09-17] MEDS: ACETAMINOPHEN 325 MG TABLET (FP) PO PRN (21:20)
[2019-09-17] MEDS: NEBIVOLOL 2.5 MG TABLET (FP) PO SCH (21:21)
[2019-09-18] MEDS ORDERED: INSULIN (LEVEMIR) 100 UNITS/ML UNITS SQ ONE ×3 (05:25→18:25)
[2019-09-18] MEDS ORDERED: INSULIN (NOVOLOG) ASPART 100 UNITS/ML 10ML VIAL ONE ×3 (05:25→18:24)
[2019-09-18] MEDS: INSULIN SLIDING SCALE (NOVOLOG) 1 VIAL SQ SCH ×4 (06:05→22:06)
[2019-09-18] MEDS: INSULIN (LEVEMIR) 100 UNITS/ML UNITS SQ SCH (06:05)
--- NOTE | 2019-09-18 08:46 | DS ---
Physical Exam: SUBJECTIVE: Pt's son appealed discharge due to concern about NPH. Discussed with neurology who was recalled and reported that he would be a poor candidate for any shunting at this time. 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 OBJECTIVE: Vital Signs Period Temp Pulse Resp BP Sys/Poole Pulse Ox Last 24 Hr 97.8 F-98.1 F 56-66 18-20 114-130/53-63 97-97 PHYSICAL EXAM Gen: NAD, awake, alert HEENT: NC/AT, ANTONIO, MMM Neck: No JVD LUNG: CTA bilaterally, however poor inspiratory effort, On RA CARD: RRR no murmurs appreciated ABD: Soft, Nt/ND, normoactive BS: : Arguello catheter in place, clearing urine in collection bag EXT: No edema appreciated, cap refill <2sec Skin: No rashes or lesions noted LABS Laboratory Results - last 24 hr 09/17/19 09/17/19 09/17/19 06:30 11:04 17:20 Sodium 140 Potassium 4.8 Chloride 105 Carbon Dioxide 25 Anion Gap 9 BUN 25.0 H Creatinine 1.3 Est GFR (CKD-EPI)AfAm 60.15 Est GFR (CKD-EPI)NonAf 51.90 POC Glucometer 270 107 Random Glucose 225 H Calcium 8.4 L 09/17/19 09/18/19 09/18/19 22:45 05:50 06:16 Sodium Potassium Chloride Carbon Dioxide Anion Gap BUN Creatinine Est GFR (CKD-EPI)AfAm Est GFR (CKD-EPI)NonAf POC Glucometer 100 52 85 Random Glucose Calcium Active Medications Acetaminophen (Tylenol -) 650 mg PO Q4H PRN PRN Reason: FEVER Last Admin: 09/08/19 18:00 Dose: 650 mg Atorvastatin Calcium (Lipitor -) 40 mg PO HS [facility] Last Admin: 09/15/19 21:48 Dose: 40 mg Donepezil HCl (Aricept -) 10 mg PO DAILY [facility] Last Admin: 09/16/19 12:29 Dose: 10 mg Ezetimibe (Zetia -) 10 mg PO HS [facility] Last Admin: 09/15/19 21:48 Dose: 10 mg Escitalopram Oxalate (Lexapro -) 10 mg PO DAILY [facility] Last Admin: 09/16/19 12:28 Dose: 10 mg Ferrous Sulfate (Feosol -) 325 mg PO BIDWM [facility] Last Admin: 09/16/19 18:51 Dose: 325 mg Finasteride (Proscar -) 5 mg PO DAILY [facility] Last Admin: 09/16/19 12:28 Dose: 5 mg Insulin Aspart (Novolog Vial Sliding Scale -) 1 vial SQ ACHS [facility]; Protocol Last Admin: 09/16/19 17:30 Dose: 8 units Insulin Aspart (Novolog Vial) 10 units SQ ACLD [facility] Last Admin: 09/16/19 17:30 Dose: 10 units Insulin Detemir (Levemir Vial) 40 units SQ AM [facility] Nebivolol (Bystolic -) 2.5 mg PO HS [facility] Last Admin: 09/15/19 21:48 Dose: 2.5 mg Nystatin (Nystop Powder -) 1 applic TP BID [facility] Last Admin: 09/16/19 12:29 Dose: 1 applic Ondansetron HCl (Zofran Injection) 4 mg IVPUSH Q6H PRN PRN Reason: NAUSEA AND/OR VOMITING Tamsulosin HCl (Flomax -) 0.4 mg PO BID@0830,2200 [facility] Last Admin: 09/16/19 12:28 Dose: 0.4 mg Microbiology 09/01/19 23:00 Blood - Peripheral Venous Blood Culture - Final NO GROWTH AFTER 5 DAYS INCUBATION 09/01/19 23:00 Blood - Peripheral Venous Blood Culture - Final NO GROWTH AFTER 5 DAYS INCUBATION 09/01/19 21:16 Urine - Urine Arguello Urine Culture - Final Strep Agalactiae Group B Mr S Aureus Staphylococcus Coagulase Neg IMAGING: ABD U/S: IMPRESSION: Limited examination likely due to the patient's body habitus. The liver appears to be slightly hyperechoic suggestive of mild fatty infiltration versus hepatocellular disease. No gross gallstones identified. Borderline thickening of the gallbladder wall without evidence of acute cholecystitis. Nonvisualization of the pancreas. Nonvisualization of the abdominal aorta and inferior vena cava. Right renal simple cyst measuring 2.1 cm. Abd/Pelvis CT: IMPRESSION: Constipation. Mild fullness of the collecting system with a dilated bladder which could represent reflux. Paraumbilical hernia with no stranding. Hiatal hernia seen previously. Renal cysts. Head CT: IMPRESSION: No significant interval change Moderate to marked ventricular dilatation with a lateral and third ventricles are relatively more dilated than for. Degree of the ventricular dilatation is more than expected for the degree of cortical atrophy. 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 Otherwise, no interval acute intracranial pathology is identified. A preliminary report was forwarded by the [facility], HOSPITAL COURSE: Date of Admission:09/01/19 Date of Discharge: 09/18/19 Pt admitted to hospital on 09/01/19 due to HHS. Pt was placed on insulin gtt and HHS protocol until which he was able to transition to the floor alongside of subcutaneously insulin. Pt was seen by endocrinology with final insulin regiment being Levemir 38U BID, Novolog 9U before Lunch and dinner, alongside of ISS for further coverage if needed. During patient's workup he was found to have MRSA UTI which is being treated with Doxycycline 100mg BID for a total of 5 days. Unfortunately patient was given trial of void period where he did not void for 24hrs. Arguello was placed, tamsulosin was increased to 0.4mg BID alongside of newly added Proscar 5mg qdaily. Pt's hospitalization was prolonged 2/2 to insurance denial and denial of appeal. Unfortunately at this point pt began to have gross hematuria for which urology was consulted. Pt was assessed and underwent cystoscopy with Dr. Carolyne Morris revealing blood near prostate with clots. Pt received a TURP and was placed on CBI which has now been ceased. Pt has had no other signs of hematuria since CBI has been stopped. Pt's glucose now well controlled. Son appealed discharge due to concern of NPH condition; neurology and neurosurgery recalled as above. Minutes to complete discharge: 33 <Stevie Grubbs - Last Filed: 09/18/19 21:07> Physical Exam: SUBJECTIVE: Patient seen and examined OBJECTIVE: Vital Signs Period Temp Pulse Resp BP Sys/Poole Pulse Ox Last 24 Hr 97.4 F-98.7 F 65-75 18-20 116-139/50-84 96-97 PHYSICAL EXAM GENERAL: The patient is awake, alert, and fully oriented, in no acute distress. HEAD: Normal with no signs of trauma. EYES: PERRL, extraocular movements intact, sclera anicteric, conjunctiva clear. ENT: Ears normal, nares patent, oropharynx clear without exudates, moist mucous membranes. NECK: Trachea midline, full range of motion, supple. LUNGS: Breath sounds equal, clear to auscultation bilaterally, no wheezes, no crackles, no accessory muscle use. HEART: Regular rate and rhythm, S1, S2 without murmur, rub or gallop. ABDOMEN: Soft, nontender, nondistended, normoactive bowel sounds, no guarding, no rebound, no hepatosplenomegaly, no masses. EXTREMITIES: 2+ pulses, warm, well-perfused, no edema. NEUROLOGICAL: Cranial nerves II through XII grossly intact. Normal speech, gait not observed. PSYCH: Normal mood, normal affect. SKIN: Warm, dry, normal turgor, no rashes or lesions noted. LABS Laboratory Results - last 24 hr 09/19/19 09/19/19 09/19/19 11:00 12:00 17:22 WBC 7.9 RBC 3.41 L Hgb 9.9 L Hct 30.7 L MCV 90.0 MCH 28.9 MCHC 32.1 RDW 15.7 Plt Count 236 MPV 7.8 POC Glucometer 316 99 09/19/19 09/20/19 09/20/19 23:43 00:11 05:58 WBC RBC Hgb Hct MCV MCH MCHC RDW Plt Count MPV POC Glucometer 53 126 52 09/20/19 09/20/19 06:14 06:31 WBC RBC Hgb Hct MCV MCH MCHC RDW Plt Count MPV POC Glucometer 167 150 HOSPITAL COURSE: Date of Admission:09/01/19 Date of Discharge: 09/20/19 <Hernesto Cook - Last Filed: 09/23/19 11:54> Discharge Summary Problems reviewed: Yes Reason For Visit: ACUTE KIDNEY INJURY, DIABETIC KETOACIDOSIS, COLITI Current Active Problems KIKI (acute kidney injury) (Acute) DKA (diabetic ketoacidoses) (Acute) Obesity (BMI 30-39.9) (Chronic) - Home Medications Comprehensive Discharge Medication List: Ambulatory Orders Atorvastatin Ca [Lipitor] 40 mg PO DAILY 05/06/19 Clopidogrel Bisulfate [Plavix] 75 mg PO DAILY 05/06/19 Ezetimibe 10 mg PO HS 05/06/19 Nebivolol HCl [Bystolic] 2.5 mg PO HS 05/06/19 Tamsulosin HCl 0.4 mg PO DAILY 05/06/19 Compression Socks, Medium [Futuro Restoring] 1 each MC DAILY #1 each 09/06/19 Donepezil HCl [Aricept -] 5 mg PO DAILY tablet 09/06/19 Doxycycline Hyclate [Vibramycin -] 100 mg PO BID@1000,1800 3 Days #6 capsule 10/15 Escitalopram Oxalate [Lexapro -] 10 mg PO DAILY tablet 09/06/19 Insulin (Levemir) [Levemir Vial] 15 units SQ BID@0700,2200 units 09/06/19 Insulin Aspart [Novolog] 2 unit SQ ACLD #1 cartridge 09/06/19 Insulin Sliding Scale [Novolog Vial Sliding Scale -] 1 vial SQ ACHS units 09/06 Tamsulosin HCl 0.4 mg PO BID #60 capsule 09/06/19 <Stevie Grubbs - Last Filed: 09/18/19 21:07> Current Active Problems KIKI (acute kidney injury) (Acute) DKA (diabetic ketoacidoses) (Acute) Obesity (BMI 30-39.9) (Chronic) - Home Medications Comprehensive Discharge Medication List: Ambulatory Orders Atorvastatin Ca [Lipitor] 40 mg PO DAILY 05/06/19 Clopidogrel Bisulfate [Plavix] 75 mg PO DAILY 05/06/19 Ezetimibe 10 mg PO HS 05/06/19 Nebivolol HCl [Bystolic] 2.5 mg PO HS 05/06/19 Tamsulosin HCl 0.4 mg PO DAILY 05/06/19 Compression Socks, Medium [Futuro Restoring] 1 each MC DAILY #1 each 09/06/19 Donepezil HCl [Aricept -] 5 mg PO DAILY tablet 09/06/19 Doxycycline Hyclate [Vibramycin -] 100 mg PO BID@1000,1800 3 Days #6 capsule 10/15 Escitalopram Oxalate [Lexapro -] 10 mg PO DAILY tablet 09/06/19 Insulin (Levemir) [Levemir Vial] 15 units SQ BID@0700,2200 units 09/06/19 Insulin Aspart [Novolog] 2 unit SQ ACLD #1 cartridge 09/06/19 Insulin Sliding Scale [Novolog Vial Sliding Scale -] 1 vial SQ ACHS units 09/06 Tamsulosin HCl 0.4 mg PO BID #60 capsule 09/06/19 <Hernesto Cook - Last Filed: 09/23/19 11:54> Condition: Stable - Instructions Diet, Activity, Other Instructions: Please STOP using the insulin pump Instead you will be using Levemir 34 qAM Novolog 2U with Lunch and Dinner Sliding scale as below for NEEDED coverage: 100-150 0units 151-200 4units 201-250 6units 251-300 8units 301-350 10units 351-400 12 units >400 14 units and go to the ER or call a doctor You have completed antibiotics Also continue taking Aricept 10mg daily and Lexapro 10mg daily as suggested by the neurologist Continue Proscar 5mg daily. We increased your Tamsulosin to 0.4mg TWICE daily and please use compression stockings to help with any orthostatic hypotension seen Diet: Puree diet diabetic and sodium controlled with thin liquids Follow-up with Dr. Yamila Morris regarding the arguello catheter within 3-5 days. Please maintain the arguello catheter with proper care the assisted facility Follow-up with Dr. Lynch for the diabetes. Follow-up with Dr. Shahid in 3-5 days to update them on your care Follow-up with the rest of the referrals as above Referrals: Xochitl Shahid MD [Staff Physician] - Yoni Lynch MD [Staff Physician] - 2 Weeks Yamila Morris MD [Staff Physician] - 1 Week Jeannie Edwards MD [Staff Physician] - 1 Week Sintia Belle DPM [Staff Physician] - 1 Month (For diabetic foot checks) Disposition: VNS/HOME HEALTH CARE This patient is new to me today: No Emergency Visit: Yes ED Registration Date: 09/01/19 Care time: The patient presented to the Emergency Department on the above date and was hospitalized for further evaluation of their emergent condition. Critical Care patient: No - Discharge Referral Referred to [facility] No <Stevie Grubbs - Last Filed: 09/18/19 21:07> ATTENDING PHYSICIAN STATEMENT I saw and evaluated the patient. I reviewed the resident's note and discussed the case with the resident. I agree with the resident's findings and plan as documented. SUBJECTIVE: OBJECTIVE: ASSESSMENT AND PLAN: <Stevie Grubbs - Last Filed: 09/18/19 21:07> Seen and examined; agree with resident note aside from as supplemented below by myself. Independently reviewed all labs, vitals, and diagnostics. In addition I verified all patel historic and PE findings. Discussed with CM regarding home services and family appeal. Again, to reiterate, he was initially treated for DKA and UTI and developed hematuria and this has been repeatedly recurring alongside difficult to control blood sugars. Multiple rebleeds have complicated discharge-this is being actively managed by urology who cleared the patient for DC each time. Due to the repeated issues of rebleeds and contested DCs different notes have been used. Please keep in mind each day is defined by that days encounter from medicine with PE documented. Unchanges; no issues overnight. 10 sys ROS done and negative aside from HPI NAD, AAO, resting in bed NC AT EOMI PERRLA Neurologically unchanged; wont participate in full exam but CN2-12 wnl, moves all 4 ext with normal sensory NT ND +BS HR wnl, no fnd Lungs CTAB, w/ sym exp Skin without rashes or breakdown Not agitated, cannot do full psych exam, restricted insight and judgment secondary to clinical condition 1) DKA 2/2 issues with managing insulin pump, resolved-DC on SQ insulin 2) Uncontrolled DM -Continually adjusting insulin. Complete control has proven difficult with this patient but is preferable to the ongoing issue with pump. No further input from endo noted. 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 Can discuss therapeutic tap as needed but per neuro likely should be done OP. Will continue to monitor. 4) Acute Cystitis with Hematuria vs. Cristobal Hematuria- Abx per ID; continue to monitor. Ongoing trauma 2/2 underlying dementia vs. infectious origin. 5) Urinary Obstruction - Continue tamsulosin and finasteride. 6) KIKI on CKD-III, improved - Improved to resolve, underlying CKD likely secondary to diabetes mellitus being so uncontrolled. We will continue to monitor. 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 7) Hx CAD s/p CABG 8) Underlying Dementia (documented as Alzheimer's Type) 9) Hx D-CHF 10) Lactic Acidosis, resolved 11) Hypernatremia, resolved 12) Hx HTN 13) Hx HLD 14) Hx COPD, no acute exacerbation Discussed with neuro/nsgy regarding the NPH-no inpatient intervention per Pia WELDON/Silke WELDON Continue to discuss hematuria issue with urology; will need definitive plan as requiring intermittent CBI. Continue monitoring sugars and adjusting; has helped since family has been prohibited from bringing meals. Full Code <Hernesto Cook - Last Filed: 09/23/19 11:54>
--- NOTE | 2019-09-18 10:54 | PN ---
Progress Note, Physician History of Present Illness: stable having hematuria - Current Medication List Current Medications: Active Medications Acetaminophen (Tylenol -) 650 mg PO Q4H PRN PRN Reason: FEVER Last Admin: 09/17/19 21:20 Dose: 650 mg Atorvastatin Calcium (Lipitor -) 40 mg PO HS [facility] Last Admin: 09/17/19 21:20 Dose: 40 mg Donepezil HCl (Aricept -) 10 mg PO DAILY [facility] Last Admin: 09/17/19 11:13 Dose: 10 mg Ezetimibe (Zetia -) 10 mg PO HS [facility] Last Admin: 09/17/19 21:19 Dose: 10 mg Escitalopram Oxalate (Lexapro -) 10 mg PO DAILY [facility] Last Admin: 09/17/19 11:13 Dose: 10 mg Ferrous Sulfate (Feosol -) 325 mg PO BIDWM [facility] Last Admin: 09/17/19 18:08 Dose: 325 mg Finasteride (Proscar -) 5 mg PO DAILY [facility] Last Admin: 09/17/19 11:13 Dose: 5 mg Insulin Aspart (Novolog Vial Sliding Scale -) 1 vial SQ ACHS [facility]; Protocol Last Admin: 09/18/19 06:05 Dose: Not Given Insulin Aspart (Novolog Vial) 9 units SQ ACLD [facility] Insulin Detemir (Levemir Vial) 38 units SQ AM [facility] Nebivolol (Bystolic -) 2.5 mg PO HS [facility] Last Admin: 09/17/19 21:21 Dose: 2.5 mg Nystatin (Nystop Powder -) 1 applic TP BID [facility] Last Admin: 09/17/19 21:21 Dose: 1 applic Ondansetron HCl (Zofran Injection) 4 mg IVPUSH Q6H PRN PRN Reason: NAUSEA AND/OR VOMITING Tamsulosin HCl (Flomax -) 0.4 mg PO BID@0830,2200 [facility] Last Admin: 09/17/19 21:21 Dose: 0.4 mg - Objective Vital Signs: Vital Signs Temperature 97.8 F 09/18/19 06:05 Pulse Rate 65 09/18/19 06:05 Respiratory Rate 19 09/18/19 06:05 Blood Pressure 130/61 09/18/19 06:05 O2 Sat by Pulse Oximetry (%) 97 09/17/19 21:00 Constitutional: Yes: No Distress, Calm Cardiovascular: Yes: S1, S2 Respiratory: Yes: Regular, CTA Bilaterally Gastrointestinal: Yes: Normal Bowel Sounds, Soft Genitourinary: Yes: Strong Present Musculoskeletal: Yes: WNL Extremities: Yes: WNL Neurological: Yes: Alert Labs: CBC, BMP 09/17/19 06:30 09/17/19 06:30 INR, PTT INR 1.42 (0.83-1.09) H 09/14/19 06:38 Assessment/Plan 79 year old man with a history of HTN, hyperlipidemia, CAD, ME, CABG, chronic diastolic heart failure, type 2 DM, stage 3 CKD, COPD, dementia who presented to the ED with altered mental status. 1. Acute metabolic encephalopathy 2. Acute kidney injury 3. Abdominal pain 4. UTI 5. Lactic acidosis 6. Hypernatremia 7. Hypophosphatemia 8. HTN 9. Hyperlipidemia 10. CAD, history of ME, CABG 11. Chronic diastolic heart failure 12. Stage 3 CKD 13. COPD 14. Alzheimer dementia plan monitor for hematuria urology to revisit rest as per the team
[2019-09-18] MEDS: TAMSULOSIN HCL 0.4 MG CAP PO SCH ×2 (11:08→21:51)
[2019-09-18] MEDS: FERROUS SO4 325 MG TABLET (FP) PO SCH ×2 (11:09→17:45)
[2019-09-18] MEDS: FINASTERIDE 5 MG TABLET (FP) PO SCH (11:09)
[2019-09-18] MEDS: ESCITALOPRAM OXALATE 10 MG TABLET (FP) PO SCH (11:09)
[2019-09-18] MEDS: DONEPEZIL HCL 10 MG TABLET (FP) PO SCH (11:09)
--- NOTE | 2019-09-18 11:09 | PN ---
Progress Note (short form) - Note Progress Note: Pt. seen today. S/p TURP. Arguello draining some what bloody urine. Will leave arguello in and discharge with arguello home. Will follow in the office for removal of Arguello. Thank you
[2019-09-18] MEDS: NYSTATIN POWDER 100,000 UNITS/GM - 15 GM TOPICAL POWDER TP SCH ×2 (11:10→21:51)
--- NOTE | 2019-09-18 12:24 | PN ---
Progress Note, Physician History of Present Illness: Pt seen and examined at bedside. He is tolerating diet. Urine is clearing up. - Current Medication List Current Medications: Active Medications Acetaminophen (Tylenol -) 650 mg PO Q4H PRN PRN Reason: FEVER Last Admin: 09/17/19 21:20 Dose: 650 mg Atorvastatin Calcium (Lipitor -) 40 mg PO HS [facility] Last Admin: 09/17/19 21:20 Dose: 40 mg Donepezil HCl (Aricept -) 10 mg PO DAILY [facility] Last Admin: 09/18/19 11:09 Dose: 10 mg Ezetimibe (Zetia -) 10 mg PO HS [facility] Last Admin: 09/17/19 21:19 Dose: 10 mg Escitalopram Oxalate (Lexapro -) 10 mg PO DAILY [facility] Last Admin: 09/18/19 11:09 Dose: 10 mg Ferrous Sulfate (Feosol -) 325 mg PO BIDWM [facility] Last Admin: 09/18/19 11:09 Dose: 325 mg Finasteride (Proscar -) 5 mg PO DAILY [facility] Last Admin: 09/18/19 11:09 Dose: 5 mg Insulin Aspart (Novolog Vial Sliding Scale -) 1 vial SQ ACHS [facility]; Protocol Last Admin: 09/18/19 06:05 Dose: Not Given Insulin Aspart (Novolog Vial) 9 units SQ ACLD [facility] Insulin Detemir (Levemir Vial) 38 units SQ AM [facility] Nebivolol (Bystolic -) 2.5 mg PO HS [facility] Last Admin: 09/17/19 21:21 Dose: 2.5 mg Nystatin (Nystop Powder -) 1 applic TP BID [facility] Last Admin: 09/18/19 11:10 Dose: 1 applic Ondansetron HCl (Zofran Injection) 4 mg IVPUSH Q6H PRN PRN Reason: NAUSEA AND/OR VOMITING Tamsulosin HCl (Flomax -) 0.4 mg PO BID@0830,2200 [facility] Last Admin: 09/18/19 11:08 Dose: 0.4 mg - Objective Vital Signs: Vital Signs Temperature 97.8 F 09/18/19 06:05 Pulse Rate 65 09/18/19 06:05 Respiratory Rate 19 09/18/19 06:05 Blood Pressure 130/61 09/18/19 06:05 O2 Sat by Pulse Oximetry (%) 97 09/17/19 21:00 Constitutional: Yes: Calm HENT: Yes: Atraumatic Neck: Yes: Supple Cardiovascular: Yes: S1, S2 Respiratory: Yes: CTA Bilaterally Gastrointestinal: Yes: Normal Bowel Sounds, Soft Genitourinary: Yes: WNL Musculoskeletal: Yes: WNL Edema: No Neurological: Yes: Confusion Labs: CBC, BMP 09/17/19 06:30 09/17/19 06:30 INR, PTT INR 1.42 (0.83-1.09) H 09/14/19 06:38 Problem List - Problems (1) KIKI (acute kidney injury) Code(s): N17.9 - ACUTE KIDNEY FAILURE, UNSPECIFIED (2) DKA (diabetic ketoacidoses) Code(s): E11.10 - TYPE 2 DIABETES MELLITUS WITH KETOACIDOSIS WITHOUT COMA Qualifiers: Diabetes mellitus type: type 2 Diabetes mellitus complication detail: without coma Qualified Code(s): E11.10 - Type 2 diabetes mellitus with ketoacidosis without coma (3) Acute renal failure Code(s): N17.9 - ACUTE KIDNEY FAILURE, UNSPECIFIED (4) Hypernatremia Code(s): E87.0 - HYPEROSMOLALITY AND HYPERNATREMIA Assessment/Plan Current Medications Generic Name Dose Route Start Last Admin Trade Name Freq PRN Reason Stop Dose Admin Acetaminophen 650 mg 09/04/19 10:34 09/17/19 21:20 Tylenol - PO 650 mg Q4H PRN Administration FEVER Atorvastatin Calcium 40 mg 09/02/19 22:00 09/17/19 21:20 Lipitor - PO 40 mg HS [facility] Administration Donepezil HCl 10 mg 09/11/19 10:00 09/18/19 11:09 Aricept - PO 10 mg DAILY [facility] Administration Ezetimibe 10 mg 09/02/19 22:00 09/17/19 21:19 Zetia - PO 10 mg HS [facility] Administration Escitalopram Oxalate 10 mg 09/11/19 10:00 09/18/19 11:09 Lexapro - PO 10 mg DAILY [facility] Administration Ferrous Sulfate 325 mg 09/15/19 17:30 09/18/19 11:09 Feosol - PO 325 mg BIDWM [facility] Administration Finasteride 5 mg 09/11/19 10:00 09/18/19 11:09 Proscar - PO 5 mg DAILY [facility] Administration Insulin Aspart 1 vial 09/05/19 00:52 09/18/19 06:05 Novolog Vial Sliding Scale - SQ Not Given ACHS [facility] Protocol Insulin Aspart 9 units 09/18/19 08:49 Novolog Vial SQ ACLD [facility] Insulin Detemir 38 units 09/18/19 08:49 Levemir Vial SQ AM [facility] Nebivolol 2.5 mg 09/02/19 22:00 09/17/19 21:21 Bystolic - PO 2.5 mg HS [facility] Administration Nystatin 1 applic 09/05/19 11:30 09/18/19 11:10 Nystop Powder - TP 1 applic BID [facility] Administration Ondansetron HCl 4 mg 09/13/19 17:01 Zofran Injection IVPUSH Q6H PRN NAUSEA AND/OR VOMITING Tamsulosin HCl 0.4 mg 09/11/19 08:45 09/18/19 11:08 Flomax - PO 0.4 mg BID@0830,2200 [facility] Administration Impression 1. KIKI 2. DKA 3. hypernatremia 4. DM 5. dementia 6. cad 7. hyperkalemia Plan - urology input appreciated - no new labs - outpt follow up, spoke to family - discussed diet with family as well - diabetic diet
[2019-09-18] MEDS: INSULIN (NOVOLOG) ASPART 100 UNITS/ML 10ML VIAL SQ SCH ×2 (13:36→17:43)
[2019-09-18] MEDS: ATORVASTATIN CA 40 MG TABLET (FP) PO SCH (21:51)
[2019-09-18] MEDS: NEBIVOLOL 2.5 MG TABLET (FP) PO SCH (21:51)
[2019-09-18] MEDS: EZETIMIBE 10 MG TABLET (FP) PO SCH (21:51)
[2019-09-18] MEDS ORDERED: DEXTROSE 50%-WATER - 25 GM/50 ML VIAL IVPUSH ONE (22:16)
[2019-09-18] MEDS ORDERED: DEXTROSE 50%-WATER - 25 GM/50 ML VIAL ONE (22:33)
[2019-09-19] MEDS: INSULIN SLIDING SCALE (NOVOLOG) 1 VIAL SQ SCH ×4 (06:13→23:00)
[2019-09-19] MEDS: INSULIN (LEVEMIR) 100 UNITS/ML UNITS SQ SCH (06:13)
[2019-09-19] MEDS ORDERED: PT OWN MED DRAWER 7, Y5N ONE ×2 (09:20→22:17)
[2019-09-19] MEDS: FINASTERIDE 5 MG TABLET (FP) PO SCH (09:25)
[2019-09-19] MEDS: ESCITALOPRAM OXALATE 10 MG TABLET (FP) PO SCH (09:25)
[2019-09-19] MEDS: DONEPEZIL HCL 10 MG TABLET (FP) PO SCH (09:26)
[2019-09-19] MEDS: FERROUS SO4 325 MG TABLET (FP) PO SCH ×2 (09:26→17:25)
[2019-09-19] MEDS: TAMSULOSIN HCL 0.4 MG CAP PO SCH ×2 (09:26→23:00)
[2019-09-19] MEDS: NYSTATIN POWDER 100,000 UNITS/GM - 15 GM TOPICAL POWDER TP SCH ×2 (09:32→23:00)
--- NOTE | 2019-09-19 10:23 | PN ---
Progress Note, Physician History of Present Illness: hematuria urology to have a look - Current Medication List Current Medications: Active Medications Acetaminophen (Tylenol -) 650 mg PO Q4H PRN PRN Reason: FEVER Last Admin: 09/17/19 21:20 Dose: 650 mg Atorvastatin Calcium (Lipitor -) 40 mg PO HS [facility] Last Admin: 09/18/19 21:51 Dose: 40 mg Donepezil HCl (Aricept -) 10 mg PO DAILY [facility] Last Admin: 09/19/19 09:26 Dose: 10 mg Ezetimibe (Zetia -) 10 mg PO HS [facility] Last Admin: 09/18/19 21:51 Dose: 10 mg Escitalopram Oxalate (Lexapro -) 10 mg PO DAILY [facility] Last Admin: 09/19/19 09:25 Dose: 10 mg Ferrous Sulfate (Feosol -) 325 mg PO BIDWM [facility] Last Admin: 09/19/19 09:26 Dose: 325 mg Finasteride (Proscar -) 5 mg PO DAILY [facility] Last Admin: 09/19/19 09:25 Dose: 5 mg Insulin Aspart (Novolog Vial) 5 units SQ ACLD [facility] Insulin Aspart (Novolog Vial Sliding Scale -) 1 vial SQ [facility]; Protocol Insulin Detemir (Levemir Vial) 38 units SQ AM [facility] Last Admin: 09/19/19 06:13 Dose: 38 units Nebivolol (Bystolic -) 2.5 mg PO HS [facility] Last Admin: 09/18/19 21:51 Dose: 2.5 mg Nystatin (Nystop Powder -) 1 applic TP BID [facility] Last Admin: 09/19/19 09:32 Dose: 1 applic Ondansetron HCl (Zofran Injection) 4 mg IVPUSH Q6H PRN PRN Reason: NAUSEA AND/OR VOMITING Tamsulosin HCl (Flomax -) 0.4 mg PO BID@0830,2200 [facility] Last Admin: 09/19/19 09:26 Dose: 0.4 mg - Objective Vital Signs: Vital Signs Temperature 97.7 F 09/19/19 09:37 Pulse Rate 75 09/19/19 09:37 Respiratory Rate 18 09/19/19 09:37 Blood Pressure 139/53 L 09/19/19 09:37 O2 Sat by Pulse Oximetry (%) 97 09/18/19 21:00 Constitutional: Yes: No Distress, Calm Cardiovascular: Yes: S1, S2 Respiratory: Yes: Regular, CTA Bilaterally Gastrointestinal: Yes: Normal Bowel Sounds, Soft Genitourinary: Yes: Strong Present Musculoskeletal: Yes: WNL Extremities: Yes: WNL Labs: CBC, BMP 09/17/19 06:30 09/17/19 06:30 INR, PTT INR 1.42 (0.83-1.09) H 09/14/19 06:38 Assessment/Plan 79 year old man with a history of HTN, hyperlipidemia, CAD, CO, CABG, chronic diastolic heart failure, type 2 DM, stage 3 CKD, COPD, dementia who presented to the ED with altered mental status. 1. Acute metabolic encephalopathy 2. Acute kidney injury 3. Abdominal pain 4. UTI 5. Lactic acidosis 6. Hypernatremia 7. Hypophosphatemia 8. HTN 9. Hyperlipidemia 10. CAD, history of CO, CABG 11. Chronic diastolic heart failure 12. Stage 3 CKD 13. COPD 14. Alzheimer dementia plan monitor for hematuria monitor for her output urology rest as per the team
[2019-09-19] MEDS: INSULIN (NOVOLOG) ASPART 100 UNITS/ML 10ML VIAL SQ SCH ×2 (11:58→17:25)
[2019-09-19 12:13] LABS: HEMATOCRIT 30.7 % (35.4-49); HEMOGLOBIN 9.9 GM/dL (11.7-16.9); MCH 28.9 pg (25.7-33.7); MCHC 32.1 g/dl (32.0-35.9); MEAN PLT VOLUME 7.8 fl (7.5-11.1); PLATELET COUNT 236 K/MM3 (134-434); RBC 3.41 M/mm3 (4.00-5.60); RDW 15.7 % (11.9-15.9); WHITE BLOOD COUNT 7.9 K/mm3 (4.0-10.0)
--- NOTE | 2019-09-19 16:34 | PN ---
Progress Note, Physician History of Present Illness: Pt seen and examined at bedside. He still has hematuria. - Current Medication List Current Medications: Active Medications Acetaminophen (Tylenol -) 650 mg PO Q4H PRN PRN Reason: FEVER Last Admin: 09/17/19 21:20 Dose: 650 mg Atorvastatin Calcium (Lipitor -) 40 mg PO HS [facility] Last Admin: 09/18/19 21:51 Dose: 40 mg Donepezil HCl (Aricept -) 10 mg PO DAILY [facility] Last Admin: 09/19/19 09:26 Dose: 10 mg Ezetimibe (Zetia -) 10 mg PO HS [facility] Last Admin: 09/18/19 21:51 Dose: 10 mg Escitalopram Oxalate (Lexapro -) 10 mg PO DAILY [facility] Last Admin: 09/19/19 09:25 Dose: 10 mg Ferrous Sulfate (Feosol -) 325 mg PO BIDWM [facility] Last Admin: 09/19/19 09:26 Dose: 325 mg Finasteride (Proscar -) 5 mg PO DAILY [facility] Last Admin: 09/19/19 09:25 Dose: 5 mg Insulin Aspart (Novolog Vial) 5 units SQ ACLD [facility] Last Admin: 09/19/19 11:58 Dose: 5 units Insulin Aspart (Novolog Vial Sliding Scale -) 1 vial SQ ACHS [facility]; Protocol Last Admin: 09/19/19 11:59 Dose: 10 units Insulin Detemir (Levemir Vial) 38 units SQ AM [facility] Last Admin: 09/19/19 06:13 Dose: 38 units Nebivolol (Bystolic -) 2.5 mg PO HS [facility] Last Admin: 09/18/19 21:51 Dose: 2.5 mg Nystatin (Nystop Powder -) 1 applic TP BID [facility] Last Admin: 09/19/19 09:32 Dose: 1 applic Ondansetron HCl (Zofran Injection) 4 mg IVPUSH Q6H PRN PRN Reason: NAUSEA AND/OR VOMITING Tamsulosin HCl (Flomax -) 0.4 mg PO BID@0830,2200 [facility] Last Admin: 09/19/19 09:26 Dose: 0.4 mg - Objective Vital Signs: Vital Signs Temperature 97.8 F 09/19/19 14:38 Pulse Rate 65 09/19/19 14:38 Respiratory Rate 20 09/19/19 14:38 Blood Pressure 121/84 09/19/19 14:38 O2 Sat by Pulse Oximetry (%) 97 09/19/19 09:00 Constitutional: Yes: Calm HENT: Yes: Atraumatic Neck: Yes: Supple Cardiovascular: Yes: S1, S2 Respiratory: Yes: CTA Bilaterally Gastrointestinal: Yes: Soft Genitourinary: Yes: Strong Present, Hematuria Musculoskeletal: Yes: Muscle Weakness Edema: No Neurological: Yes: Confusion Labs: CBC, BMP 09/19/19 12:00 09/17/19 06:30 INR, PTT INR 1.42 (0.83-1.09) H 09/14/19 06:38 Problem List - Problems (1) KIKI (acute kidney injury) Code(s): N17.9 - ACUTE KIDNEY FAILURE, UNSPECIFIED (2) DKA (diabetic ketoacidoses) Code(s): E11.10 - TYPE 2 DIABETES MELLITUS WITH KETOACIDOSIS WITHOUT COMA Qualifiers: Diabetes mellitus type: type 2 Diabetes mellitus complication detail: without coma Qualified Code(s): E11.10 - Type 2 diabetes mellitus with ketoacidosis without coma (3) Acute renal failure Code(s): N17.9 - ACUTE KIDNEY FAILURE, UNSPECIFIED (4) Hypernatremia Code(s): E87.0 - HYPEROSMOLALITY AND HYPERNATREMIA Assessment/Plan Current Medications Generic Name Dose Route Start Last Admin Trade Name Freq PRN Reason Stop Dose Admin Acetaminophen 650 mg 09/04/19 10:34 09/17/19 21:20 Tylenol - PO 650 mg Q4H PRN Administration FEVER Atorvastatin Calcium 40 mg 09/02/19 22:00 09/18/19 21:51 Lipitor - PO 40 mg HS [facility] Administration Donepezil HCl 10 mg 09/11/19 10:00 09/19/19 09:26 Aricept - PO 10 mg DAILY [facility] Administration Ezetimibe 10 mg 09/02/19 22:00 09/18/19 21:51 Zetia - PO 10 mg HS [facility] Administration Escitalopram Oxalate 10 mg 09/11/19 10:00 09/19/19 09:25 Lexapro - PO 10 mg DAILY [facility] Administration Ferrous Sulfate 325 mg 09/15/19 17:30 09/19/19 09:26 Feosol - PO 325 mg BIDWM [facility] Administration Finasteride 5 mg 09/11/19 10:00 09/19/19 09:25 Proscar - PO 5 mg DAILY [facility] Administration Insulin Aspart 5 units 09/19/19 07:03 09/19/19 11:58 Novolog Vial SQ 5 units ACLD [facility] Administration Insulin Aspart 1 vial 09/19/19 07:03 09/19/19 11:59 Novolog Vial Sliding Scale - SQ 10 units ACHS [facility] Administration Protocol Insulin Detemir 38 units 09/18/19 08:49 09/19/19 06:13 Levemir Vial SQ 38 units AM [facility] Administration Nebivolol 2.5 mg 09/02/19 22:00 09/18/19 21:51 Bystolic - PO 2.5 mg HS [facility] Administration Nystatin 1 applic 09/05/19 11:30 09/19/19 09:32 Nystop Powder - TP 1 applic BID [facility] Administration Ondansetron HCl 4 mg 09/13/19 17:01 Zofran Injection IVPUSH Q6H PRN NAUSEA AND/OR VOMITING Tamsulosin HCl 0.4 mg 09/11/19 08:45 09/19/19 09:26 Flomax - PO 0.4 mg BID@0830,2200 [facility] Administration Impression 1. KIKI 2. DKA 3. hypernatremia 4. DM 5. dementia 6. cad 7. hyperkalemia 8. hematuria Plan - urology follow up for persistent hematuria - check bmp - monitor hg - diabetic diet
--- NOTE | 2019-09-19 16:42 | PN ---
Progress Note (short form) - Note Progress Note: HPI: Pt was nani hematuria. Pt remains sitting in bed without any events overnight. HPI limited due to clinical condition PE: Gen: NAD, awake, alert HEENT: NC/AT, ANTONIO, MMM Neck: No JVD LUNG: CTA bilaterally, however poor inspiratory effort, On RA CARD: RRR no murmurs appreciated ABD: Soft, Nt/ND, normoactive BS: : Arguello catheter in place, slight blood from meatus and diaper, free flowing arguello with gross hematuria EXT: No edema appreciated, cap refill <2sec Skin: No rashes or lesions noted CBC, BMP 09/19/19 12:00 09/17/19 06:30 Active Medications Acetaminophen (Tylenol -) 650 mg PO Q4H PRN PRN Reason: FEVER Last Admin: 09/17/19 21:20 Dose: 650 mg Atorvastatin Calcium (Lipitor -) 40 mg PO HS [facility] Last Admin: 09/18/19 21:51 Dose: 40 mg Donepezil HCl (Aricept -) 10 mg PO DAILY [facility] Last Admin: 09/19/19 09:26 Dose: 10 mg Ezetimibe (Zetia -) 10 mg PO HS [facility] Last Admin: 09/18/19 21:51 Dose: 10 mg Escitalopram Oxalate (Lexapro -) 10 mg PO DAILY [facility] Last Admin: 09/19/19 09:25 Dose: 10 mg Ferrous Sulfate (Feosol -) 325 mg PO BIDWM [facility] Last Admin: 09/19/19 09:26 Dose: 325 mg Finasteride (Proscar -) 5 mg PO DAILY [facility] Last Admin: 09/19/19 09:25 Dose: 5 mg Insulin Aspart (Novolog Vial) 5 units SQ ACLD [facility] Last Admin: 09/19/19 11:58 Dose: 5 units Insulin Aspart (Novolog Vial Sliding Scale -) 1 vial SQ ACHS [facility]; Protocol Last Admin: 09/19/19 11:59 Dose: 10 units Insulin Detemir (Levemir Vial) 38 units SQ AM [facility] Last Admin: 09/19/19 06:13 Dose: 38 units Nebivolol (Bystolic -) 2.5 mg PO HS [facility] Last Admin: 09/18/19 21:51 Dose: 2.5 mg Nystatin (Nystop Powder -) 1 applic TP BID [facility] Last Admin: 09/19/19 09:32 Dose: 1 applic Ondansetron HCl (Zofran Injection) 4 mg IVPUSH Q6H PRN PRN Reason: NAUSEA AND/OR VOMITING Tamsulosin HCl (Flomax -) 0.4 mg PO BID@0830,2200 [facility] Last Admin: 09/19/19 09:26 Dose: 0.4 mg Assessment and Plan: DKA (resolved) Hypernatremia (resolved) Acute kidney injury (Resolved) Type 2 DM 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 Morris to be recalled for hematuria; provided number for him to call me back --CBC stat for f/u regarding pt's H/H --Continue glycemic control: Levemir 38U AM Novolog scheduled 5U ACLD ISS for breakthrough BGM ACHS --If arguello stops draining regularly will attempt to flush --Discussed with Dr. Edwards and Dr. Edouard how even trial of LP or [employer] shunting not viable for patient's NPH --Contnue Flomax 0.4mg BID PO --Continue Proscar 5mg qdaily --Lexapro 10mg and Aricept 10mg qdaily FEN: Fluids: PO encouragement Nutrition: PPX: DVT - scds Dispo: Awaiting urology f/u Case discussed with Dr. Joey Grubbs, DO - IM PGY-3 <Stevie Grubbs - Last Filed: 09/19/19 16:44> - Note Progress Note: Seen and examined; agree with resident note aside from as supplemented below by myself. Independently reviewed all labs, vitals, and diagnostics. In addition I verified all patel historic and PE findings. No new complaints; no agitation, hematuria returned so checking CBC and will call Dr. Morris to discuss. Will have team call and update son. He remains stable; we continue to titrate his insulin. Since he stopped taking sweets from family increased glycemic control. Yesterday the son told me that he was concerned about the comment that NPH was nonoperative from an inpatient standpoint; I assured him that I would speak with neurosurgery to confirm. I spoke with Dr. Edouard who declined inpatient consultation but informed me that the correct treatment indeed would be a trial LP; resident team did discuss with Dr. Edwards who agreed and stated that the procedure would be deferred inpatient. The patient's son was informed and I defer to the expertise of the consulting specialists. Overall, the hematuria continues to keep the patient inpatient. 10 sys ROS done and negative aside from HPI NAD, AAO, resting in bed NC AT EOMI PERRLA Neurologically unchanged; wont participate in full exam but CN2-12 wnl, moves all 4 ext with normal sensory NT ND +BS HR wnl, no fnd Lungs CTAB, w/ sym exp Skin without rashes or breakdown Not agitated, cannot do full psych exam, restricted insight and judgment secondary to clinical condition 1) DKA 2/2 issues with managing insulin pump, resolved-DC on SQ insulin 2) Uncontrolled DM -Continually adjusting insulin. Complete control has proven difficult with this patient but is preferable to the ongoing issue with pump. No further input from endo noted. Lowering premeal today due to slight hypo. 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 Can discuss therapeutic tap as needed but per neuro likely should be done OP. Will continue to monitor. 4) Acute Cystitis with Hematuria vs. Nani Hematuria- Abx per ID; continue to monitor. Ongoing trauma 2/2 underlying dementia vs. infectious origin. 5) Urinary Obstruction - Continue tamsulosin and finasteride. 6) KIKI on CKD-III, improved - Improved to resolve, underlying CKD likely secondary to diabetes mellitus being so uncontrolled. We will continue to monitor. He should follow-up with his photo stylist upon discharge. 7) Hx CAD s/p CABG *There is no documented history of any recent stents, etc. etc. that would necessitate the absolute use of Plavix. However the patient's hemoglobin went from 9-10, which does not endorse any worsening bleeding. Due to this, I will elect to continue it from now, and I will speak with resident team about obtaining more records so we can elucidate the patient's full cardiac history and discontinue this medication if indeed is not indicated. He is not having any chest pain or atypical cardiac symptoms are apparent to myself or nursing. 8) Underlying Dementia (documented as Alzheimer's Type) *Worsened by NPH and likely toxic metabolic encephalopathy due to the acute issues. Son tells me that he transfers and ambulates on his own. 9) Hx D-CHF 10) Lactic Acidosis, resolved 11) Hypernatremia, resolved 12) Hx HTN 13) Hx HLD 14) Hx COPD, no acute exacerbation <Hernesto Cook - Last Filed: 09/20/19 07:39>
--- NOTE | 2019-09-19 21:11 | PN ---
Progress Note (short form) - Note Progress Note: UROLOGY NOTE S/P TUVP on CBI developed clots retention. arguello catheter irrigation done and bladder drained. plan to continue CBI.
[2019-09-19] MEDS: ATORVASTATIN CA 40 MG TABLET (FP) PO SCH (23:00)
[2019-09-19] MEDS: EZETIMIBE 10 MG TABLET (FP) PO SCH (23:00)
[2019-09-19] MEDS: NEBIVOLOL 2.5 MG TABLET (FP) PO SCH (23:00)
[2019-09-19] MEDS ORDERED: DEXTROSE 50%-WATER - 25 GM/50 ML VIAL ONE (23:51)
[2019-09-19] MEDS ORDERED: DEXTROSE 50%-WATER 25 GM/50 ML DISP.SYRIN ONE (23:52)
[2019-09-19] MEDS ORDERED: DEXTROSE 50%-WATER - 25 GM/50 ML VIAL IVPUSH ONE (23:59)
[2019-09-20] MEDS ORDERED: INSULIN (LEVEMIR) 100 UNITS/ML UNITS SQ ONE (05:28)
[2019-09-20] MEDS: INSULIN SLIDING SCALE (NOVOLOG) 1 VIAL SQ SCH ×4 (06:01→23:11)
[2019-09-20] MEDS: INSULIN (LEVEMIR) 100 UNITS/ML UNITS SQ SCH ×2 (06:01→07:00)
[2019-09-20] MEDS ORDERED: DEXTROSE 50%-WATER 25 GM/50 ML DISP.SYRIN ONE (06:02)
[2019-09-20] MEDS ORDERED: DEXTROSE 50%-WATER - 25 GM/50 ML VIAL IVPUSH ONE (06:08)
[2019-09-20 07:51] LABS: HEMATOCRIT 29.9 % (35.4-49); HEMOGLOBIN 9.7 GM/dL (11.7-16.9); MCH 29.1 pg (25.7-33.7); MCHC 32.4 g/dl (32.0-35.9); MEAN CELL VOLUME 89.6 fl (80-96); MEAN PLT VOLUME 8.4 fl (7.5-11.1); PLATELET COUNT 219 K/MM3 (134-434); RBC 3.34 M/mm3 (4.00-5.60); RDW 15.5 % (11.9-15.9); WHITE BLOOD COUNT 7.8 K/mm3 (4.0-10.0)
[2019-09-20] MEDS: ESCITALOPRAM OXALATE 10 MG TABLET (FP) PO SCH (09:37)
[2019-09-20] MEDS: TAMSULOSIN HCL 0.4 MG CAP PO SCH ×2 (09:37→23:10)
[2019-09-20] MEDS: DONEPEZIL HCL 10 MG TABLET (FP) PO SCH (09:37)
[2019-09-20] MEDS: FINASTERIDE 5 MG TABLET (FP) PO SCH (09:37)
[2019-09-20] MEDS: FERROUS SO4 325 MG TABLET (FP) PO SCH ×2 (09:37→17:34)
[2019-09-20] MEDS: INSULIN (NOVOLOG) ASPART 100 UNITS/ML 10ML VIAL SQ SCH ×2 (12:31→17:33)
[2019-09-20] MEDS: NYSTATIN POWDER 100,000 UNITS/GM - 15 GM TOPICAL POWDER TP SCH ×2 (12:31→23:11)
--- NOTE | 2019-09-20 12:44 | PN ---
Progress Note, Physician History of Present Illness: urology note noted developed clots on cbi hematuria - Current Medication List Current Medications: Active Medications Acetaminophen (Tylenol -) 650 mg PO Q4H PRN PRN Reason: FEVER Last Admin: 09/17/19 21:20 Dose: 650 mg Atorvastatin Calcium (Lipitor -) 40 mg PO HS [facility] Last Admin: 09/19/19 23:00 Dose: 40 mg Donepezil HCl (Aricept -) 10 mg PO DAILY [facility] Last Admin: 09/20/19 09:37 Dose: 10 mg Ezetimibe (Zetia -) 10 mg PO HS [facility] Last Admin: 09/19/19 23:00 Dose: 10 mg Escitalopram Oxalate (Lexapro -) 10 mg PO DAILY [facility] Last Admin: 09/20/19 09:37 Dose: 10 mg Ferrous Sulfate (Feosol -) 325 mg PO BIDWM [facility] Last Admin: 09/20/19 09:37 Dose: 325 mg Finasteride (Proscar -) 5 mg PO DAILY [facility] Last Admin: 09/20/19 09:37 Dose: 5 mg Insulin Aspart (Novolog Vial Sliding Scale -) 1 vial SQ ACHS [facility]; Protocol Last Admin: 09/20/19 12:30 Dose: 8 units Insulin Aspart (Novolog Vial) 2 units SQ ACLD [facility] Last Admin: 09/20/19 12:31 Dose: 2 unit Insulin Detemir (Levemir Vial) 34 units SQ AM [facility] Last Admin: 09/20/19 07:00 Dose: Not Given Nebivolol (Bystolic -) 2.5 mg PO [facility] Last Admin: 09/19/19 23:00 Dose: 2.5 mg Nystatin (Nystop Powder -) 1 applic TP BID [facility] Last Admin: 09/20/19 12:31 Dose: 1 applic Ondansetron HCl (Zofran Injection) 4 mg IVPUSH Q6H PRN PRN Reason: NAUSEA AND/OR VOMITING Tamsulosin HCl (Flomax -) 0.4 mg PO BID@0830,2200 [facility] Last Admin: 09/20/19 09:37 Dose: 0.4 mg - Objective Vital Signs: Vital Signs Temperature 98.7 F 09/20/19 05:43 Pulse Rate 69 09/20/19 05:43 Respiratory Rate 18 09/20/19 05:43 Blood Pressure 137/65 09/20/19 05:43 O2 Sat by Pulse Oximetry (%) 96 09/19/19 21:00 Constitutional: Yes: No Distress, Calm Cardiovascular: Yes: S1, S2 Respiratory: Yes: Regular, CTA Bilaterally Gastrointestinal: Yes: Normal Bowel Sounds, Soft Genitourinary: Yes: Strong Present, Other Musculoskeletal: Yes: WNL Extremities: Yes: WNL Neurological: Yes: Alert, Other Labs: CBC, BMP 09/20/19 06:25 09/17/19 06:30 INR, PTT INR 1.42 (0.83-1.09) H 09/14/19 06:38 Assessment/Plan 79 year old man with a history of HTN, hyperlipidemia, CAD, DC, CABG, chronic diastolic heart failure, type 2 DM, stage 3 CKD, COPD, dementia who presented to the ED with altered mental status. 1. Acute metabolic encephalopathy 2. Acute kidney injury 3. Abdominal pain 4. UTI 5. Lactic acidosis 6. Hypernatremia 7. Hypophosphatemia 8. HTN 9. Hyperlipidemia 10. CAD, history of DC, CABG 11. Chronic diastolic heart failure 12. Stage 3 CKD 13. COPD 14. Alzheimer dementia plan monitor for hematuria monitor for her output
--- NOTE | 2019-09-20 14:42 | PN ---
Progress Note, Physician History of Present Illness: Pt seen and examined at bedside. He is now on CBI. He denies shortness of breath. - Current Medication List Current Medications: Active Medications Acetaminophen (Tylenol -) 650 mg PO Q4H PRN PRN Reason: FEVER Last Admin: 09/17/19 21:20 Dose: 650 mg Atorvastatin Calcium (Lipitor -) 40 mg PO HS [facility] Last Admin: 09/19/19 23:00 Dose: 40 mg Donepezil HCl (Aricept -) 10 mg PO DAILY [facility] Last Admin: 09/20/19 09:37 Dose: 10 mg Ezetimibe (Zetia -) 10 mg PO HS [facility] Last Admin: 09/19/19 23:00 Dose: 10 mg Escitalopram Oxalate (Lexapro -) 10 mg PO DAILY [facility] Last Admin: 09/20/19 09:37 Dose: 10 mg Ferrous Sulfate (Feosol -) 325 mg PO BIDWM [facility] Last Admin: 09/20/19 09:37 Dose: 325 mg Finasteride (Proscar -) 5 mg PO DAILY [facility] Last Admin: 09/20/19 09:37 Dose: 5 mg Insulin Aspart (Novolog Vial Sliding Scale -) 1 vial SQ ACHS [facility]; Protocol Last Admin: 09/20/19 12:30 Dose: 8 units Insulin Aspart (Novolog Vial) 2 units SQ ACLD [facility] Last Admin: 09/20/19 12:31 Dose: 2 unit Insulin Detemir (Levemir Vial) 34 units SQ AM [facility] Last Admin: 09/20/19 07:00 Dose: Not Given Nebivolol (Bystolic -) 2.5 mg PO HS [facility] Last Admin: 09/19/19 23:00 Dose: 2.5 mg Nystatin (Nystop Powder -) 1 applic TP BID [facility] Last Admin: 09/20/19 12:31 Dose: 1 applic Ondansetron HCl (Zofran Injection) 4 mg IVPUSH Q6H PRN PRN Reason: NAUSEA AND/OR VOMITING Tamsulosin HCl (Flomax -) 0.4 mg PO BID@0830,2200 [facility] Last Admin: 09/20/19 09:37 Dose: 0.4 mg - Objective Vital Signs: Vital Signs Temperature 98 F 09/20/19 14:01 Pulse Rate 62 09/20/19 14:01 Respiratory Rate 20 09/20/19 14:01 Blood Pressure 136/67 09/20/19 14:01 O2 Sat by Pulse Oximetry (%) 100 09/20/19 09:00 Constitutional: Yes: Calm Eyes: Yes: Conjunctiva Clear HENT: Yes: Atraumatic Cardiovascular: Yes: S1, S2 Respiratory: Yes: CTA Bilaterally Gastrointestinal: Yes: Soft Genitourinary: Yes: Other (pt on CBI, hematuria is improved) Edema: LLE: Trace, RLE: Trace Neurological: Yes: Confusion Labs: CBC, BMP 09/20/19 06:25 09/17/19 06:30 INR, PTT INR 1.42 (0.83-1.09) H 09/14/19 06:38 Problem List - Problems (1) KIKI (acute kidney injury) Code(s): N17.9 - ACUTE KIDNEY FAILURE, UNSPECIFIED (2) DKA (diabetic ketoacidoses) Code(s): E11.10 - TYPE 2 DIABETES MELLITUS WITH KETOACIDOSIS WITHOUT COMA Qualifiers: Diabetes mellitus type: type 2 Diabetes mellitus complication detail: without coma Qualified Code(s): E11.10 - Type 2 diabetes mellitus with ketoacidosis without coma (3) Acute renal failure Code(s): N17.9 - ACUTE KIDNEY FAILURE, UNSPECIFIED (4) Hypernatremia Code(s): E87.0 - HYPEROSMOLALITY AND HYPERNATREMIA Assessment/Plan Current Medications Generic Name Dose Route Start Last Admin Trade Name Freq PRN Reason Stop Dose Admin Acetaminophen 650 mg 09/04/19 10:34 09/17/19 21:20 Tylenol - PO 650 mg Q4H PRN Administration FEVER Atorvastatin Calcium 40 mg 09/02/19 22:00 09/19/19 23:00 Lipitor - PO 40 mg HS [facility] Administration Donepezil HCl 10 mg 09/11/19 10:00 09/20/19 09:37 Aricept - PO 10 mg DAILY [facility] Administration Ezetimibe 10 mg 09/02/19 22:00 09/19/19 23:00 Zetia - PO 10 mg HS [facility] Administration Escitalopram Oxalate 10 mg 09/11/19 10:00 09/20/19 09:37 Lexapro - PO 10 mg DAILY [facility] Administration Ferrous Sulfate 325 mg 09/15/19 17:30 09/20/19 09:37 Feosol - PO 325 mg BIDWM [facility] Administration Finasteride 5 mg 09/11/19 10:00 09/20/19 09:37 Proscar - PO 5 mg DAILY [facility] Administration Insulin Aspart 1 vial 09/19/19 07:03 09/20/19 12:30 Novolog Vial Sliding Scale - SQ 8 units ACHS [facility] Administration Protocol Insulin Aspart 2 units 09/20/19 06:21 09/20/19 12:31 Novolog Vial SQ 2 unit ACLD [facility] Administration Insulin Detemir 34 units 09/20/19 06:21 09/20/19 07:00 Levemir Vial SQ Not Given AM [facility] Nebivolol 2.5 mg 09/02/19 22:00 09/19/19 23:00 Bystolic - PO 2.5 mg HS [facility] Administration Nystatin 1 applic 09/05/19 11:30 09/20/19 12:31 Nystop Powder - TP 1 applic BID [facility] Administration Ondansetron HCl 4 mg 09/13/19 17:01 Zofran Injection IVPUSH Q6H PRN NAUSEA AND/OR VOMITING Tamsulosin HCl 0.4 mg 09/11/19 08:45 09/20/19 09:37 Flomax - PO 0.4 mg BID@0830,2200 [facility] Administration Impression 1. KIKI 2. DKA 3. hypernatremia 4. DM 5. dementia 6. cad 7. hyperkalemia 8. hematuria Plan - pt now on CBA - hematuria is improving - monitor bmp while on cbi, will order - urology follow up - monitor hg - diabetic diet
--- NOTE | 2019-09-20 17:01 | PN ---
Progress Note (short form) - Note Progress Note: HPI: Pt initiated on CBI. Hypoglycemia noted last night and given D50 with notable increase. Otherwise HPI limited and rest remains unchanged PE: Gen: NAD, awake, alert HEENT: NC/AT, ANTONIO, MMM Neck: No JVD LUNG: CTA bilaterally, however poor inspiratory effort, On RA CARD: RRR no murmurs appreciated ABD: Soft, Nt/ND, normoactive BS: : Strong catheter in place, no blood near meatus, CBI running at time of exam EXT: No edema appreciated, cap refill <2sec Skin: No rashes or lesions noted CBC, BMP 09/20/19 06:25 09/17/19 06:30 Active Medications Acetaminophen (Tylenol -) 650 mg PO Q4H PRN PRN Reason: FEVER Last Admin: 09/17/19 21:20 Dose: 650 mg Atorvastatin Calcium (Lipitor -) 40 mg PO HS [facility] Last Admin: 09/19/19 23:00 Dose: 40 mg Donepezil HCl (Aricept -) 10 mg PO DAILY DAISHA Last Admin: 09/20/19 09:37 Dose: 10 mg Ezetimibe (Zetia -) 10 mg PO HS [facility] Last Admin: 09/19/19 23:00 Dose: 10 mg Escitalopram Oxalate (Lexapro -) 10 mg PO DAILY [facility] Last Admin: 09/20/19 09:37 Dose: 10 mg Ferrous Sulfate (Feosol -) 325 mg PO BIDWM DAISHA Last Admin: 09/20/19 09:37 Dose: 325 mg Finasteride (Proscar -) 5 mg PO DAILY [facility] Last Admin: 09/20/19 09:37 Dose: 5 mg Insulin Aspart (Novolog Vial Sliding Scale -) 1 vial SQ ACHS [facility]; Protocol Last Admin: 09/20/19 12:30 Dose: 8 units Insulin Aspart (Novolog Vial) 2 units SQ ACLD [facility] Last Admin: 09/20/19 12:31 Dose: 2 unit Insulin Detemir (Levemir Vial) 34 units SQ AM [facility]ISHA Last Admin: 09/20/19 07:00 Dose: Not Given Nebivolol (Bystolic -) 2.5 mg PO HS [facility] Last Admin: 09/19/19 23:00 Dose: 2.5 mg Nystatin (Nystop Powder -) 1 applic TP BID [facility] Last Admin: 09/20/19 12:31 Dose: 1 applic Ondansetron HCl (Zofran Injection) 4 mg IVPUSH Q6H PRN PRN Reason: NAUSEA AND/OR VOMITING Tamsulosin HCl (Flomax -) 0.4 mg PO BID@0830,2200 [facility] Last Admin: 09/20/19 09:37 Dose: 0.4 mg Assessment and Plan: DKA (resolved) Hypernatremia (resolved) Acute kidney injury (Resolved) Type 2 DM 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 Edwards and Dr. Edouard how even trial of LP or SECURITY ASSURANCE ANALYST shunting not viable for patient's NPH --Contnue Flomax 0.4mg BID PO --Continue Proscar 5mg qdaily --Lexapro 10mg and Aricept 10mg qdaily FEN: Fluids: PO encouragement PPX: DVT - scds Dispo: CBI for now Case discussed with Dr. Joey Grubbs, DO - IM PGY-3 <Stevie Grubbs - Last Filed: 09/20/19 16:59> - Note Progress Note: Seen and examined; agree with resident note aside from as supplemented below by myself. Independently reviewed all labs, vitals, and diagnostics. In addition I verified all patel historic and PE findings. Unchanged; no issues overnight. Hematuria recurred despite plans for DC. He will likely be kept inpatient though the weekend pending further urologic intervention. Spoke with resident team at length regarding need to determine with urology definitive meaures. We are holding AC with SCDs for DVT ppx ( plavix can be held given acute significant bleed and no recent stents). Will continue to monitor and redirect. No issues with agitation as Zyprexa has continued to have a positive effect. Overall will monitor inpatient for the weekend and discuss DC with consulting providers. 10 sys ROS done and negative aside from HPI NAD, AAO, resting in bed NC AT EOMI PERRLA Neurologically unchanged; wont participate in full exam but CN2-12 wnl, moves all 4 ext with normal sensory NT ND +BS HR wnl, no fnd Lungs CTAB, w/ sym exp Skin without rashes or breakdown Not agitated, cannot do full psych exam, restricted insight and judgment secondary to clinical condition 1) DKA 2/2 issues with managing insulin pump, resolved-DC on SQ insulin 2) Uncontrolled DM -Continually adjusting insulin. Complete control has proven difficult with this patient but is preferable to the ongoing issue with pump. No further input from endo noted. 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 Can discuss therapeutic tap as needed but per neuro likely should be done OP. Will continue to monitor. 4) Acute Cystitis with Hematuria vs. Cristobal Hematuria- Abx per ID; continue to monitor. Ongoing trauma 2/2 underlying dementia vs. infectious origin. 5) Urinary Obstruction - Continue tamsulosin and finasteride. 6) KIKI on CKD-III, improved - Improved to resolve, underlying CKD likely secondary to diabetes mellitus being so uncontrolled. We will continue to monitor. He should follow-up with his asphalt mixer upon discharge. 7) Hx CAD s/p CABG 8) Underlying Dementia (documented as Alzheimer's Type) 9) Hx D-CHF 10) Lactic Acidosis, resolved 11) Hypernatremia, resolved 12) Hx HTN 13) Hx HLD 14) Hx COPD, no acute exacerbation Discussed with neuro/nsgy regarding the NPH-no inpatient intervention per Pia WELDON/Silke WELDON Continue to discuss hematuria issue with urology; will need definitive plan as requiring intermittent CBI. Continue monitoring sugars and adjusting; has helped since family has been prohibited from bringing meals. Full Code <Hernesto Cook - Last Filed: 09/23/19 11:57>
[2019-09-20] MEDS ORDERED: PT OWN MED DRAWER 7, Y5N ONE (23:02)
[2019-09-20] MEDS: NEBIVOLOL 2.5 MG TABLET (FP) PO SCH (23:10)
[2019-09-20] MEDS: ATORVASTATIN CA 40 MG TABLET (FP) PO SCH (23:10)
[2019-09-20] MEDS: EZETIMIBE 10 MG TABLET (FP) PO SCH (23:11)
[2019-09-21] MEDS: INSULIN SLIDING SCALE (NOVOLOG) 1 VIAL SQ SCH ×4 (06:27→23:03)
[2019-09-21] MEDS: INSULIN (LEVEMIR) 100 UNITS/ML UNITS SQ SCH (06:27)
[2019-09-21 06:36] LABS: HEMATOCRIT 29.9 % (35.4-49); HEMOGLOBIN 9.7 GM/dL (11.7-16.9); MCH 29.3 pg (25.7-33.7); MCHC 32.5 g/dl (32.0-35.9); MEAN CELL VOLUME 90.2 fl (80-96); MEAN PLT VOLUME 7.8 fl (7.5-11.1); PLATELET COUNT 220 K/MM3 (134-434); RBC 3.31 M/mm3 (4.00-5.60); RDW 15.7 % (11.9-15.9); WHITE BLOOD COUNT 8.5 K/mm3 (4.0-10.0)
[2019-09-21 06:47] LABS: BLOOD UREA NITROGEN 15.3 mg/dL (7-18); CALCIUM 8.7 mg/dL (8.5-10.1); CREATININE 0.9 mg/dL (0.55-1.3); MAGNESIUM 2.5 mg/dL (1.8-2.4); POTASSIUM 4.9 mmol/L (3.5-5.1)
[2019-09-21] MEDS: FERROUS SO4 325 MG TABLET (FP) PO SCH ×2 (08:45→17:52)
[2019-09-21] MEDS: TAMSULOSIN HCL 0.4 MG CAP PO SCH ×2 (08:45→23:03)
[2019-09-21] MEDS: DONEPEZIL HCL 10 MG TABLET (FP) PO SCH (09:39)
[2019-09-21] MEDS: FINASTERIDE 5 MG TABLET (FP) PO SCH (09:39)
[2019-09-21] MEDS: ESCITALOPRAM OXALATE 10 MG TABLET (FP) PO SCH (09:39)
[2019-09-21] MEDS: NYSTATIN POWDER 100,000 UNITS/GM - 15 GM TOPICAL POWDER TP SCH ×2 (09:40→23:04)
--- NOTE | 2019-09-21 12:03 | PN ---
Physical Exam: SUBJECTIVE: Patient seen and examined Patient is alert and awake no hypoglycemia no fever and he is on CBI and it is draining OBJECTIVE: Vital Signs Period Temp Pulse Resp BP Sys/Poole Pulse Ox Last 24 Hr 97.4 F-98 F 60-69 20-22 121-141/56-82 100 GENERAL: The patient is awake, alert, HEAD: Normal with no signs of trauma NECK: Trachea midline, LUNGS: Breath sounds equal, clear to auscultation bilaterally, no wheezes, no crackles, no accessory muscle use. HEART: Regular rate and rhythm, S1, S2 without murmur, rub or gallop. ABDOMEN: Soft, nontender, nondistended, normoactive bowel sounds, no guarding, no rebound, no hepatosplenomegaly, no masses. EXTREMITIES: ch changes in his legs NEUROLOGICAL: Cranial nerves II through XII grossly intact. Normal speech, gait not observed. Laboratory Results - last 24 hr 09/20/19 09/20/19 09/21/19 16:31 23:08 05:25 WBC RBC Hgb Hct MCV MCH MCHC RDW Plt Count MPV Sodium 141 Potassium 4.9 Chloride 107 Carbon Dioxide 27 Anion Gap 7 L BUN 15.3 Creatinine 0.9 Est GFR (CKD-EPI)AfAm 93.82 Est GFR (CKD-EPI)NonAf 80.95 POC Glucometer 222 138 Random Glucose 172 H Calcium 8.7 Magnesium 2.5 H 09/21/19 09/21/19 09/21/19 05:25 05:26 11:43 WBC 8.5 RBC 3.31 L Hgb 9.7 L Hct 29.9 L MCV 90.2 MCH 29.3 MCHC 32.5 RDW 15.7 Plt Count 220 MPV 7.8 Sodium Potassium Chloride Carbon Dioxide Anion Gap BUN Creatinine Est GFR (CKD-EPI)AfAm Est GFR (CKD-EPI)NonAf POC Glucometer 167 235 Random Glucose Calcium Magnesium Active Medications Generic Name Dose Route Start Last Admin Trade Name Freq PRN Reason Stop Dose Admin Acetaminophen 650 mg 09/04/19 10:34 09/17/19 21:20 Tylenol - PO 650 mg Q4H PRN Administration FEVER Atorvastatin Calcium 40 mg 09/02/19 22:00 09/20/19 23:10 Lipitor - PO 40 mg HS DAISHA Administration Donepezil HCl 10 mg 09/11/19 10:00 09/21/19 09:39 Aricept - PO 10 mg DAILY DAISHA Administration Ezetimibe 10 mg 09/02/19 22:00 09/20/19 23:11 Zetia - PO 10 mg HS DAISHA Administration Escitalopram Oxalate 10 mg 09/11/19 10:00 09/21/19 09:39 Lexapro - PO 10 mg DAILY DAISHA Administration Ferrous Sulfate 325 mg 09/15/19 17:30 09/21/19 08:45 Feosol - PO 325 mg BIDWM DAISHA Administration Finasteride 5 mg 09/11/19 10:00 09/21/19 09:39 Proscar - PO 5 mg DAILY DAISHA Administration Insulin Aspart 1 vial 09/19/19 07:03 09/21/19 06:27 Novolog Vial Sliding Scale - SQ 4 units ACHS DAISHA Administration Protocol Insulin Aspart 2 units 09/20/19 06:21 09/20/19 17:33 Novolog Vial SQ 2 unit ACLD DAISHA Administration Insulin Detemir 34 units 09/20/19 06:21 09/21/19 06:27 Levemir Vial SQ 34 units AM [facility]ISHA Administration Nebivolol 2.5 mg 09/02/19 22:00 09/20/19 23:10 Bystolic - PO 2.5 mg HS DAISHA Administration Nystatin 1 applic 09/05/19 11:30 09/21/19 09:40 Nystop Powder - TP 1 applic BID DAISHA Administration Ondansetron HCl 4 mg 09/13/19 17:01 Zofran Injection IVPUSH Q6H PRN NAUSEA AND/OR VOMITING Tamsulosin HCl 0.4 mg 09/11/19 08:45 09/21/19 08:45 Flomax - PO 0.4 mg BID@0830,2200 DAIS[facility] Administration ASSESSMENT/PLAN: DKA (resolved) Hypernatremia and sodium is normal Acute kidney injury now normal creatinine Type 2 DM --Notable hypoglycemia during pre-dinner checks; decreased regiment to: Levemir 34U AM Novolog scheduled 2U ACLD ISS for breakthrough BGM ACHS 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 Hematuria and BPH --Urology saw patient and CBI at this time --H/H remains stable --Contnue Flomax 0.4mg BID PO --Continue Proscar 5mg qdaily --Lexapro 10mg and Aricept 10mg qdaily FEN: Fluids: PO encouragement PPX: DVT - scds Visit type - Emergency Visit Emergency Visit: Yes ED Registration Date: 09/01/19 Care time: The patient presented to the Emergency Department on the above date and was hospitalized for further evaluation of their emergent condition. - New Patient This patient is new to me today: Yes Date on this admission: 09/21/19 - Critical Care Critical Care patient: No - Discharge Referral Referred to [facility] Med P.C.: No
[2019-09-21] MEDS: INSULIN (NOVOLOG) ASPART 100 UNITS/ML 10ML VIAL SQ SCH ×2 (12:18→17:52)
--- NOTE | 2019-09-21 13:02 | PN ---
Progress Note, Physician History of Present Illness: Pt is alert, without distress. On CBI now. - Current Medication List Current Medications: Active Medications Acetaminophen (Tylenol -) 650 mg PO Q4H PRN PRN Reason: FEVER Last Admin: 09/17/19 21:20 Dose: 650 mg Atorvastatin Calcium (Lipitor -) 40 mg PO HS [facility] Last Admin: 09/20/19 23:10 Dose: 40 mg Donepezil HCl (Aricept -) 10 mg PO DAILY [facility] Last Admin: 09/21/19 09:39 Dose: 10 mg Ezetimibe (Zetia -) 10 mg PO HS [facility] Last Admin: 09/20/19 23:11 Dose: 10 mg Escitalopram Oxalate (Lexapro -) 10 mg PO DAILY [facility] Last Admin: 09/21/19 09:39 Dose: 10 mg Ferrous Sulfate (Feosol -) 325 mg PO BIDWM [facility] Last Admin: 09/21/19 08:45 Dose: 325 mg Finasteride (Proscar -) 5 mg PO DAILY [facility] Last Admin: 09/21/19 09:39 Dose: 5 mg Insulin Aspart (Novolog Vial Sliding Scale -) 1 vial SQ ACHS [facility]; Protocol Last Admin: 09/21/19 12:18 Dose: 6 units Insulin Aspart (Novolog Vial) 2 units SQ ACLD [facility] Last Admin: 09/21/19 12:18 Dose: 2 unit Insulin Detemir (Levemir Vial) 34 units SQ AM [facility] Last Admin: 09/21/19 06:27 Dose: 34 units Nebivolol (Bystolic -) 2.5 mg PO HS [facility] Last Admin: 09/20/19 23:10 Dose: 2.5 mg Nystatin (Nystop Powder -) 1 applic TP BID [facility] Last Admin: 09/21/19 09:40 Dose: 1 applic Ondansetron HCl (Zofran Injection) 4 mg IVPUSH Q6H PRN PRN Reason: NAUSEA AND/OR VOMITING Tamsulosin HCl (Flomax -) 0.4 mg PO BID@0830,2200 [facility] Last Admin: 09/21/19 08:45 Dose: 0.4 mg - Objective Vital Signs: Vital Signs Temperature 98.1 F 09/21/19 10:00 Pulse Rate 62 09/21/19 10:00 Respiratory Rate 19 09/21/19 10:00 Blood Pressure 113/97 09/21/19 10:00 O2 Sat by Pulse Oximetry (%) 98 09/21/19 09:00 Constitutional: Yes: No Distress Cardiovascular: Yes: Regular Rate and Rhythm Respiratory: Yes: Regular Gastrointestinal: Yes: Normal Bowel Sounds, Soft Genitourinary: Yes: Other (CBI) Extremities: Yes: WNL Labs: CBC, BMP 09/21/19 05:25 09/21/19 05:25 INR, PTT INR 1.42 (0.83-1.09) H 09/14/19 06:38 Microbiology 09/01/19 23:00 Blood - Peripheral Venous Blood Culture - Final NO GROWTH AFTER 5 DAYS INCUBATION 09/01/19 23:00 Blood - Peripheral Venous Blood Culture - Final NO GROWTH AFTER 5 DAYS INCUBATION 09/01/19 21:16 Urine - Urine Strong Urine Culture - Final Strep Agalactiae Group B Mr S Aureus Staphylococcus Coagulase Neg Problem List - Problems (1) KIKI (acute kidney injury) Code(s): N17.9 - ACUTE KIDNEY FAILURE, UNSPECIFIED (2) Altered mental status Code(s): R41.82 - ALTERED MENTAL STATUS, UNSPECIFIED Qualifiers: Altered mental status type: somnolence Qualified Code(s): R40.0 - Somnolence (3) Urinary retention Code(s): R33.9 - RETENTION OF URINE, UNSPECIFIED (4) CAD (coronary artery disease) Code(s): I25.10 - ATHSCL HEART DISEASE OF [place] CORONARY ARTERY W/O ANG PCTRS (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
--- NOTE | 2019-09-21 17:08 | PN ---
Progress Note, Physician History of Present Illness: Pt seen and examined at bedside. He appears comfortable. - Current Medication List Current Medications: Active Medications Acetaminophen (Tylenol -) 650 mg PO Q4H PRN PRN Reason: FEVER Last Admin: 09/17/19 21:20 Dose: 650 mg Atorvastatin Calcium (Lipitor -) 40 mg PO HS [facility] Last Admin: 09/20/19 23:10 Dose: 40 mg Donepezil HCl (Aricept -) 10 mg PO DAILY [facility] Last Admin: 09/21/19 09:39 Dose: 10 mg Ezetimibe (Zetia -) 10 mg PO HS [facility] Last Admin: 09/20/19 23:11 Dose: 10 mg Escitalopram Oxalate (Lexapro -) 10 mg PO DAILY [facility] Last Admin: 09/21/19 09:39 Dose: 10 mg Ferrous Sulfate (Feosol -) 325 mg PO BIDWM [facility] Last Admin: 09/21/19 08:45 Dose: 325 mg Finasteride (Proscar -) 5 mg PO DAILY [facility] Last Admin: 09/21/19 09:39 Dose: 5 mg Insulin Aspart (Novolog Vial Sliding Scale -) 1 vial SQ ACHS [facility]; Protocol Last Admin: 09/21/19 12:18 Dose: 6 units Insulin Aspart (Novolog Vial) 2 units SQ ACLD [facility] Last Admin: 09/21/19 12:18 Dose: 2 unit Insulin Detemir (Levemir Vial) 34 units SQ AM [facility] Last Admin: 09/21/19 06:27 Dose: 34 units Nebivolol (Bystolic -) 2.5 mg PO HS [facility] Last Admin: 09/20/19 23:10 Dose: 2.5 mg Nystatin (Nystop Powder -) 1 applic TP BID [facility] Last Admin: 09/21/19 09:40 Dose: 1 applic Ondansetron HCl (Zofran Injection) 4 mg IVPUSH Q6H PRN PRN Reason: NAUSEA AND/OR VOMITING Tamsulosin HCl (Flomax -) 0.4 mg PO BID@0830,2200 [facility] Last Admin: 09/21/19 08:45 Dose: 0.4 mg - Objective Vital Signs: Vital Signs Temperature 97.4 F L 09/21/19 14:58 Pulse Rate 65 09/21/19 14:58 Respiratory Rate 18 09/21/19 14:58 Blood Pressure 116/48 L 09/21/19 14:58 O2 Sat by Pulse Oximetry (%) 98 09/21/19 09:00 Constitutional: Yes: Calm Eyes: Yes: Conjunctiva Clear HENT: Yes: Atraumatic Neck: Yes: Supple Cardiovascular: Yes: S1, S2 Gastrointestinal: Yes: Soft Genitourinary: Yes: Other (cbi) Musculoskeletal: Yes: WNL Edema: No Neurological: Yes: Oriented Labs: CBC, BMP 09/21/19 05:25 09/21/19 05:25 INR, PTT INR 1.42 (0.83-1.09) H 09/14/19 06:38 Problem List - Problems (1) KIKI (acute kidney injury) Code(s): N17.9 - ACUTE KIDNEY FAILURE, UNSPECIFIED (2) DKA (diabetic ketoacidoses) Code(s): E11.10 - TYPE 2 DIABETES MELLITUS WITH KETOACIDOSIS WITHOUT COMA Qualifiers: Diabetes mellitus type: type 2 Diabetes mellitus complication detail: without coma Qualified Code(s): E11.10 - Type 2 diabetes mellitus with ketoacidosis without coma (3) Acute renal failure Code(s): N17.9 - ACUTE KIDNEY FAILURE, UNSPECIFIED (4) Hypernatremia Code(s): E87.0 - HYPEROSMOLALITY AND HYPERNATREMIA Assessment/Plan Current Medications Generic Name Dose Route Start Last Admin Trade Name Freq PRN Reason Stop Dose Admin Acetaminophen 650 mg 09/04/19 10:34 09/17/19 21:20 Tylenol - PO 650 mg Q4H PRN Administration FEVER Atorvastatin Calcium 40 mg 09/02/19 22:00 09/20/19 23:10 Lipitor - PO 40 mg HS DAISHA Administration Donepezil HCl 10 mg 09/11/19 10:00 09/21/19 09:39 Aricept - PO 10 mg DAILY DAISHA Administration Ezetimibe 10 mg 09/02/19 22:00 09/20/19 23:11 Zetia - PO 10 mg HS DAISHA Administration Escitalopram Oxalate 10 mg 09/11/19 10:00 09/21/19 09:39 Lexapro - PO 10 mg DAILY DAISHA Administration Ferrous Sulfate 325 mg 09/15/19 17:30 09/21/19 08:45 Feosol - PO 325 mg BIDWM DAISHA Administration Finasteride 5 mg 09/11/19 10:00 09/21/19 09:39 Proscar - PO 5 mg DAILY DAISHA Administration Insulin Aspart 1 vial 09/19/19 07:03 09/21/19 12:18 Novolog Vial Sliding Scale - SQ 6 units ACHS DAISHA Administration Protocol Insulin Aspart 2 units 09/20/19 06:21 09/21/19 12:18 Novolog Vial SQ 2 unit ACLD DAISHA Administration Insulin Detemir 34 units 09/20/19 06:21 09/21/19 06:27 Levemir Vial SQ 34 units AM DAISHA Administration Nebivolol 2.5 mg 09/02/19 22:00 09/20/19 23:10 Bystolic - PO 2.5 mg HS DAISHA Administration Nystatin 1 applic 09/05/19 11:30 09/21/19 09:40 Nystop Powder - TP 1 applic BID DAISHA Administration Ondansetron HCl 4 mg 09/13/19 17:01 Zofran Injection IVPUSH Q6H PRN NAUSEA AND/OR VOMITING Tamsulosin HCl 0.4 mg 09/11/19 08:45 09/21/19 08:45 Flomax - PO 0.4 mg BID@0830,2200 DAISHA Administration Impression 1. KIKI 2. DKA 3. hypernatremia 4. DM 5. dementia 6. cad 7. hyperkalemia 8. hematuria Plan - pt still on cbi - check labs daily while on cbi - hematuria improved - urology follow up - monitor hg - diabetic diet
[2019-09-21] MEDS ORDERED: DEXTROSE 50%-WATER - 25 GM/50 ML VIAL IVPUSH ONE (17:45)
[2019-09-21] MEDS ORDERED: DEXTROSE 50%-WATER 25 GM/50 ML DISP.SYRIN IVPUSH ONE (17:45)
[2019-09-21] MEDS ORDERED: DEXTROSE 50%-WATER 25 GM/50 ML DISP.SYRIN ONE (17:50)
[2019-09-21] MEDS ORDERED: PT OWN MED DRAWER 7, Y5N ONE (21:20)
[2019-09-21] MEDS ORDERED: INSULIN (NOVOLOG) ASPART 100 UNITS/ML 10ML VIAL ONE (21:20)
[2019-09-21] MEDS: NEBIVOLOL 2.5 MG TABLET (FP) PO SCH (23:03)
[2019-09-21] MEDS: EZETIMIBE 10 MG TABLET (FP) PO SCH (23:03)
[2019-09-21] MEDS: ATORVASTATIN CA 40 MG TABLET (FP) PO SCH (23:04)
[2019-09-22] MEDS: INSULIN (LEVEMIR) 100 UNITS/ML UNITS SQ SCH ×2 (06:12→10:25)
[2019-09-22] MEDS: INSULIN SLIDING SCALE (NOVOLOG) 1 VIAL SQ SCH ×4 (06:13→21:55)
[2019-09-22] MEDS ORDERED: PT OWN MED DRAWER 7, Y5N ONE (08:58)
[2019-09-22] MEDS: FINASTERIDE 5 MG TABLET (FP) PO SCH (09:18)
[2019-09-22] MEDS: FERROUS SO4 325 MG TABLET (FP) PO SCH ×2 (09:18→16:54)
[2019-09-22] MEDS: TAMSULOSIN HCL 0.4 MG CAP PO SCH ×2 (09:18→21:39)
[2019-09-22] MEDS: ESCITALOPRAM OXALATE 10 MG TABLET (FP) PO SCH (09:18)
[2019-09-22] MEDS: NYSTATIN POWDER 100,000 UNITS/GM - 15 GM TOPICAL POWDER TP SCH ×2 (09:19→21:39)
[2019-09-22] MEDS: DONEPEZIL HCL 10 MG TABLET (FP) PO SCH (09:19)
--- NOTE | 2019-09-22 11:11 | PN ---
Physical Exam: SUBJECTIVE: Patient seen and examined no change and still on cbi and yesterday he has dropped his sugar to 40 and given d50 and got better today he is alert and awake OBJECTIVE: Vital Signs Period Temp Pulse Resp BP Sys/Poole Pulse Ox Last 24 Hr 97.4 F-98.3 F 60-71 18-22 116-148/48-69 96-98 GENERAL: The patient is awake, alert, in no acute distress. HEAD: Normal with no signs of trauma. NECK: Trachea midline, full range of motion, supple. LUNGS: Breath sounds equal, clear to auscultation bilaterally, no wheezes, no crackles, no accessory muscle use. HEART: Regular rate and rhythm, S1, S2 without murmur, rub or gallop. ABDOMEN: Soft, nontender, nondistended, normoactive bowel sounds, no guarding, no rebound, no hepatosplenomegaly, no masses. EXTREMITIES: 2+ pulses, warm, well-perfused, no edema. NEUROLOGICAL: Cranial nerves II through XII grossly intact. Laboratory Results - last 24 hr 09/21/19 09/21/19 09/21/19 11:43 16:59 17:01 POC Glucometer 235 49 49 09/21/19 09/21/19 09/22/19 17:55 23:02 06:03 POC Glucometer 111 142 70 09/22/19 10:23 POC Glucometer 205 Active Medications Generic Name Dose Route Start Last Admin Trade Name Freq PRN Reason Stop Dose Admin Acetaminophen 650 mg 09/04/19 10:34 09/17/19 21:20 Tylenol - PO 650 mg Q4H PRN Administration FEVER Atorvastatin Calcium 40 mg 09/02/19 22:00 09/21/19 23:04 Lipitor - PO 40 mg HS DAISHA Administration Donepezil HCl 10 mg 09/11/19 10:00 09/22/19 09:19 Aricept - PO 10 mg DAILY DAISHA Administration Ezetimibe 10 mg 09/02/19 22:00 09/21/19 23:03 Zetia - PO 10 mg HS DAISHA Administration Escitalopram Oxalate 10 mg 09/11/19 10:00 09/22/19 09:18 Lexapro - PO 10 mg DAILY DAISHA Administration Ferrous Sulfate 325 mg 09/15/19 17:30 09/22/19 09:18 Feosol - PO 325 mg BIDWM DAISHA Administration Finasteride 5 mg 09/11/19 10:00 09/22/19 09:18 Proscar - PO 5 mg DAILY DAISHA Administration Insulin Aspart 1 vial 09/19/19 07:03 09/22/19 06:13 Novolog Vial Sliding Scale - SQ Not Given ACHS DAISHA Protocol Insulin Aspart 2 units 09/20/19 06:21 09/21/19 17:52 Novolog Vial SQ Not Given ACLD DAISHA Insulin Detemir 28 units 09/22/19 09:00 09/22/19 10:25 Levemir Vial SQ 28 units AM DAISHA Administration Nebivolol 2.5 mg 09/02/19 22:00 09/21/19 23:03 Bystolic - PO 2.5 mg HS DAISHA Administration Nystatin 1 applic 09/05/19 11:30 09/22/19 09:19 Nystop Powder - TP 1 applic BID DAISHA Administration Ondansetron HCl 4 mg 09/13/19 17:01 Zofran Injection IVPUSH Q6H PRN NAUSEA AND/OR VOMITING Tamsulosin HCl 0.4 mg 09/11/19 08:45 09/22/19 09:18 Flomax - PO 0.4 mg BID@0830,2200 DAISHA Administration ASSESSMENT/PLAN: Acute kidney injury now normal creatinine seen by nephro today Type 2 DM Notable hypoglycemia during pre-dinner checks; decreased regiment to: lower Levemir 28 U AM due to hypoglycemia Novolog scheduled 2U ACLD ISS for breakthrough BGM ACHS 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 Hematuria and BPH Urology saw patient and CBI at this time H/H remains stable Contnue Flomax 0.4mg BID PO Continue Proscar 5mg qdaily Lexapro 10mg and Aricept 10mg qdaily Visit type - Emergency Visit Emergency Visit: Yes ED Registration Date: 09/01/19 Care time: The patient presented to the Emergency Department on the above date and was hospitalized for further evaluation of their emergent condition. - New Patient This patient is new to me today: No - Critical Care Critical Care patient: No - Discharge Referral Referred to [facility] Med P.C.: No
[2019-09-22] MEDS: INSULIN (NOVOLOG) ASPART 100 UNITS/ML 10ML VIAL SQ SCH ×2 (11:41→17:01)
[2019-09-22] MEDS: ACETAMINOPHEN 325 MG TABLET (FP) PO PRN (13:29)
--- NOTE | 2019-09-22 14:07 | PN ---
Progress Note, Physician History of Present Illness: Pt is alert, responsive, without distress. CBI ongoing, less hematuria. - Current Medication List Current Medications: Active Medications Acetaminophen (Tylenol -) 650 mg PO Q4H PRN PRN Reason: FEVER Last Admin: 09/22/19 13:29 Dose: 650 mg Atorvastatin Calcium (Lipitor -) 40 mg PO HS [facility] Last Admin: 09/21/19 23:04 Dose: 40 mg Donepezil HCl (Aricept -) 10 mg PO DAILY [facility] Last Admin: 09/22/19 09:19 Dose: 10 mg Ezetimibe (Zetia -) 10 mg PO HS [facility] Last Admin: 09/21/19 23:03 Dose: 10 mg Escitalopram Oxalate (Lexapro -) 10 mg PO DAILY [facility] Last Admin: 09/22/19 09:18 Dose: 10 mg Ferrous Sulfate (Feosol -) 325 mg PO BIDWM [facility] Last Admin: 09/22/19 09:18 Dose: 325 mg Finasteride (Proscar -) 5 mg PO DAILY [facility] Last Admin: 09/22/19 09:18 Dose: 5 mg Insulin Aspart (Novolog Vial Sliding Scale -) 1 vial SQ ACHS [facility]; Protocol Last Admin: 09/22/19 11:40 Dose: 6 units Insulin Aspart (Novolog Vial) 2 units SQ ACLD [facility] Last Admin: 09/22/19 11:41 Dose: 2 unit Insulin Detemir (Levemir Vial) 28 units SQ AM [facility] Last Admin: 09/22/19 10:25 Dose: 28 units Nebivolol (Bystolic -) 2.5 mg PO HS [facility] Last Admin: 09/21/19 23:03 Dose: 2.5 mg Nystatin (Nystop Powder -) 1 applic TP BID [facility] Last Admin: 09/22/19 09:19 Dose: 1 applic Ondansetron HCl (Zofran Injection) 4 mg IVPUSH Q6H PRN PRN Reason: NAUSEA AND/OR VOMITING Tamsulosin HCl (Flomax -) 0.4 mg PO BID@0830,2200 [facility] Last Admin: 09/22/19 09:18 Dose: 0.4 mg - Objective Vital Signs: Vital Signs Temperature 97.3 F L 09/22/19 14:03 Pulse Rate 65 09/22/19 14:03 Respiratory Rate 20 09/22/19 14:03 Blood Pressure 142/66 10/27/19 14:03 O2 Sat by Pulse Oximetry (%) 96 09/22/19 09:00 Constitutional: Yes: No Distress, Calm Cardiovascular: Yes: Regular Rate and Rhythm Gastrointestinal: Yes: Normal Bowel Sounds, Soft Genitourinary: Yes: Strong Present, Hematuria Neurological: Yes: Alert Labs: CBC, BMP 09/21/19 05:25 09/21/19 05:25 INR, PTT INR 1.42 (0.83-1.09) H 09/14/19 06:38 Microbiology 09/01/19 23:00 Blood - Peripheral Venous Blood Culture - Final NO GROWTH AFTER 5 DAYS INCUBATION 09/01/19 23:00 Blood - Peripheral Venous Blood Culture - Final NO GROWTH AFTER 5 DAYS INCUBATION 09/01/19 21:16 Urine - Urine Strong Urine Culture - Final Strep Agalactiae Group B Mr S Aureus Staphylococcus Coagulase Neg Problem List - Problems (1) KIKI (acute kidney injury) Code(s): N17.9 - ACUTE KIDNEY FAILURE, UNSPECIFIED (2) Altered mental status Code(s): R41.82 - ALTERED MENTAL STATUS, UNSPECIFIED Qualifiers: Altered mental status type: somnolence Qualified Code(s): R40.0 - Somnolence (3) Urinary retention Code(s): R33.9 - RETENTION OF URINE, UNSPECIFIED (4) CAD (coronary artery disease) Code(s): I25.10 - ATHSCL HEART DISEASE OF [place] CORONARY ARTERY W/O ANG PCTRS (5) CKD stage 3 due to type 2 diabetes mellitus Code(s): E11.22 - TYPE 2 DIABETES MELLITUS W DIABETIC CHRONIC KIDNEY DISEASE; N18.3 - CHRONIC KIDNEY DISEASE, STAGE 3 (MODERATE) (6) Hyperlipidemia Code(s): E78.5 - HYPERLIPIDEMIA, UNSPECIFIED (7) Hypertension Code(s): I10 - ESSENTIAL (PRIMARY) HYPERTENSION (8) Type 2 diabetes mellitus Code(s): E11.9 - TYPE 2 DIABETES MELLITUS WITHOUT COMPLICATIONS Assessment/Plan s/p UTI KIKI Hematuria DM Dementia -- on CBI -- s/p course of antibiotics, remains afebrile, without distress -- continue monitor
--- NOTE | 2019-09-22 17:28 | PN ---
Progress Note, Physician History of Present Illness: Pt seen and examined at bedside. He has no complaints. He developed hematuria when the CBI is stopped. - Current Medication List Current Medications: Active Medications Acetaminophen (Tylenol -) 650 mg PO Q4H PRN PRN Reason: FEVER Last Admin: 09/22/19 13:29 Dose: 650 mg Atorvastatin Calcium (Lipitor -) 40 mg PO HS [facility] Last Admin: 09/21/19 23:04 Dose: 40 mg Donepezil HCl (Aricept -) 10 mg PO DAILY [facility] Last Admin: 09/22/19 09:19 Dose: 10 mg Ezetimibe (Zetia -) 10 mg PO HS [facility] Last Admin: 09/21/19 23:03 Dose: 10 mg Escitalopram Oxalate (Lexapro -) 10 mg PO DAILY [facility] Last Admin: 09/22/19 09:18 Dose: 10 mg Ferrous Sulfate (Feosol -) 325 mg PO BIDWM [facility] Last Admin: 09/22/19 16:54 Dose: 325 mg Finasteride (Proscar -) 5 mg PO DAILY [facility] Last Admin: 09/22/19 09:18 Dose: 5 mg Insulin Aspart (Novolog Vial Sliding Scale -) 1 vial SQ ACHS [facility]; Protocol Last Admin: 09/22/19 17:01 Dose: Not Given Insulin Aspart (Novolog Vial) 2 units SQ ACLD [facility] Last Admin: 09/22/19 17:01 Dose: Not Given Insulin Detemir (Levemir Vial) 28 units SQ AM [facility] Last Admin: 09/22/19 10:25 Dose: 28 units Nebivolol (Bystolic -) 2.5 mg PO HS [facility] Last Admin: 09/21/19 23:03 Dose: 2.5 mg Nystatin (Nystop Powder -) 1 applic TP BID [facility] Last Admin: 09/22/19 09:19 Dose: 1 applic Ondansetron HCl (Zofran Injection) 4 mg IVPUSH Q6H PRN PRN Reason: NAUSEA AND/OR VOMITING Tamsulosin HCl (Flomax -) 0.4 mg PO BID@0830,2200 [facility] Last Admin: 09/22/19 09:18 Dose: 0.4 mg - Objective Vital Signs: Vital Signs Temperature 97.3 F L 09/22/19 14:03 Pulse Rate 65 09/22/19 14:03 Respiratory Rate 20 09/22/19 14:03 Blood Pressure 142/66 09/22/19 14:03 O2 Sat by Pulse Oximetry (%) 96 09/22/19 09:00 Constitutional: Yes: Calm HENT: Yes: Atraumatic Neck: Yes: Supple Cardiovascular: Yes: S1, S2 Respiratory: Yes: CTA Bilaterally Gastrointestinal: Yes: Normal Bowel Sounds, Soft Genitourinary: Yes: Other (cbi) Musculoskeletal: Yes: WNL Edema: Yes Edema: LLE: Trace, RLE: Trace Neurological: Yes: Oriented Labs: CBC, BMP 09/21/19 05:25 09/21/19 05:25 INR, PTT INR 1.42 (0.83-1.09) H 09/14/19 06:38 Problem List - Problems (1) KIKI (acute kidney injury) Code(s): N17.9 - ACUTE KIDNEY FAILURE, UNSPECIFIED (2) DKA (diabetic ketoacidoses) Code(s): E11.10 - TYPE 2 DIABETES MELLITUS WITH KETOACIDOSIS WITHOUT COMA Qualifiers: Diabetes mellitus type: type 2 Diabetes mellitus complication detail: without coma Qualified Code(s): E11.10 - Type 2 diabetes mellitus with ketoacidosis without coma (3) Acute renal failure Code(s): N17.9 - ACUTE KIDNEY FAILURE, UNSPECIFIED (4) Hypernatremia Code(s): E87.0 - HYPEROSMOLALITY AND HYPERNATREMIA Assessment/Plan Current Medications Generic Name Dose Route Start Last Admin Trade Name Freq PRN Reason Stop Dose Admin Acetaminophen 650 mg 09/04/19 10:34 09/22/19 13:29 Tylenol - PO 650 mg Q4H PRN Administration FEVER Atorvastatin Calcium 40 mg 09/02/19 22:00 09/21/19 23:04 Lipitor - PO 40 mg HS [facility] Administration Donepezil HCl 10 mg 09/11/19 10:00 09/22/19 09:19 Aricept - PO 10 mg DAILY [facility] Administration Ezetimibe 10 mg 09/02/19 22:00 09/21/19 23:03 Zetia - PO 10 mg HS [facility] Administration Escitalopram Oxalate 10 mg 09/11/19 10:00 09/22/19 09:18 Lexapro - PO 10 mg DAILY [facility] Administration Ferrous Sulfate 325 mg 09/15/19 17:30 09/22/19 16:54 Feosol - PO 325 mg BIDWM [facility] Administration Finasteride 5 mg 09/11/19 10:00 09/22/19 09:18 Proscar - PO 5 mg DAILY [facility] Administration Insulin Aspart 1 vial 09/19/19 07:03 09/22/19 17:01 Novolog Vial Sliding Scale - SQ Not Given ACHS [facility] Protocol Insulin Aspart 2 units 09/20/19 06:21 09/22/19 17:01 Novolog Vial SQ Not Given ACLD [facility] Insulin Detemir 28 units 09/22/19 09:00 09/22/19 10:25 Levemir Vial SQ 28 units AM [facility] Administration Nebivolol 2.5 mg 09/02/19 22:00 09/21/19 23:03 Bystolic - PO 2.5 mg HS [facility] Administration Nystatin 1 applic 09/05/19 11:30 09/22/19 09:19 Nystop Powder - TP 1 applic BID [facility] Administration Ondansetron HCl 4 mg 09/13/19 17:01 Zofran Injection IVPUSH Q6H PRN NAUSEA AND/OR VOMITING Tamsulosin HCl 0.4 mg 09/11/19 08:45 09/22/19 09:18 Flomax - PO 0.4 mg BID@0830,2200 [facility] Administration Impression 1. KIKI 2. DKA 3. hypernatremia 4. DM 5. dementia 6. cad 7. hyperkalemia 8. hematuria Plan - urology follow up is pending - check cbc and bmp - avoid nsaids and nephrotoxins - hematuria returns when cbi is stopped - monitor hg - diabetic diet
[2019-09-22] MEDS: NEBIVOLOL 2.5 MG TABLET (FP) PO SCH (21:38)
[2019-09-22] MEDS: ATORVASTATIN CA 40 MG TABLET (FP) PO SCH (21:39)
[2019-09-22] MEDS: EZETIMIBE 10 MG TABLET (FP) PO SCH (21:39)
[2019-09-23] MEDS: INSULIN SLIDING SCALE (NOVOLOG) 1 VIAL SQ SCH ×4 (06:59→21:28)
[2019-09-23 07:31] LABS: BASO % 1.1 % (0-2.0); EOS % 5.4 % (0-4.5); HEMOGLOBIN 10.2 GM/dL (11.7-16.9); LYMPH % 20.1 % (8-40); MCH 28.7 pg (25.7-33.7); MCHC 31.9 g/dl (32.0-35.9); MEAN PLT VOLUME 7.9 fl (7.5-11.1); MONO % 11.4 % (3.8-10.2); PLATELET COUNT 212 K/MM3 (134-434); RBC 3.55 M/mm3 (4.00-5.60); RDW 15.6 % (11.9-15.9); WHITE BLOOD COUNT 7.6 K/mm3 (4.0-10.0)
--- NOTE | 2019-09-23 07:51 | PN ---
Progress Note (short form) - Note Progress Note: HPI: Pt remains on CBI. Hypoglycemia noted over weekend with subsequent decreased in insulin. Otherwise HPI limited PE: Gen: NAD, awake, alert HEENT: NC/AT, ANTONIO, MMM Neck: No JVD LUNG: CTA bilaterally, however poor inspiratory effort, On RA CARD: RRR no murmurs appreciated ABD: Soft, Nt/ND, normoactive BS: : Strong catheter in place CBI ongoing EXT: No edema appreciated, cap refill <2sec Skin: No rashes or lesions noted CBC, BMP 09/23/19 06:30 09/23/19 06:30 Active Medications Acetaminophen (Tylenol -) 650 mg PO Q4H PRN PRN Reason: FEVER Last Admin: 09/22/19 13:29 Dose: 650 mg Atorvastatin Calcium (Lipitor -) 40 mg PO HS [facility] Last Admin: 09/23/19 21:28 Dose: 40 mg Donepezil HCl (Aricept -) 10 mg PO DAILY [facility] Last Admin: 09/23/19 11:26 Dose: 10 mg Ezetimibe (Zetia -) 10 mg PO HS [facility] Last Admin: 09/23/19 21:28 Dose: 10 mg Escitalopram Oxalate (Lexapro -) 10 mg PO DAILY [facility] Last Admin: 09/23/19 11:26 Dose: 10 mg Ferrous Sulfate (Feosol -) 325 mg PO BIDWM [facility] Last Admin: 09/23/19 17:31 Dose: Not Given Finasteride (Proscar -) 5 mg PO DAILY [facility] Last Admin: 09/23/19 11:29 Dose: 5 mg Insulin Aspart (Novolog Vial Sliding Scale -) 1 vial SQ ACHS [facility]; Protocol Last Admin: 09/23/19 21:28 Dose: Not Given Insulin Aspart (Novolog Vial) 2 units SQ ACLD [facility] Last Admin: 09/23/19 17:33 Dose: 2 units Insulin Detemir (Levemir Vial) 28 units SQ AM [facility] Last Admin: 09/23/19 11:26 Dose: 28 units Nebivolol (Bystolic -) 2.5 mg PO HS [facility] Last Admin: 09/23/19 21:28 Dose: 2.5 mg Nystatin (Nystop Powder -) 1 applic TP BID [facility] Last Admin: 09/23/19 21:28 Dose: 1 applic Ondansetron HCl (Zofran Injection) 4 mg IVPUSH Q6H PRN PRN Reason: NAUSEA AND/OR VOMITING Tamsulosin HCl (Flomax -) 0.4 mg PO BID@0830,2200 [facility] Last Admin: 09/23/19 21:28 Dose: 0.4 mg Microbiology 09/01/19 23:00 Blood - Peripheral Venous Blood Culture - Final NO GROWTH AFTER 5 DAYS INCUBATION 09/01/19 23:00 Blood - Peripheral Venous Blood Culture - Final NO GROWTH AFTER 5 DAYS INCUBATION 09/01/19 21:16 Urine - Urine Strong Urine Culture - Final Strep Agalactiae Group B Mr S Aureus Staphylococcus Coagulase Neg Assessment and Plan: DKA (resolved) Hypernatremia (resolved) Acute kidney injury (Resolved) Type 2 DM 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 Edwards and Dr. Edouard how even trial of LP or ASSISTANT OPERATIONS MANAGER shunting not viable for patient's NPH --Contnue Flomax 0.4mg BID PO --Continue Proscar 5mg qdaily --Lexapro 10mg and Aricept 10mg qdaily FEN: Fluids: PO encouragement PPX: DVT - scds Dispo: Continue monitoring Case discussed with Dr. Joey Grubbs, DO - IM PGY-3 <Stevie Grubbs - Last Filed: 09/23/19 23:34> - Note Progress Note: I have seen and examined the indicated patient independently/along with the resident team. I have personally verified all patel exam findings and historical components. I have personally interpreted all diagnostics indicated per todays orders and reviewed interpretation of indicated subspecialty services. This patient meets a high level of medical complexity and warrants indicated LOC to avoid decompensation and worsening of the indicated illness. S: Agree with historical findings as outlined in resident documentation regarding history of present illness. No further events communicated to myself from overnight. No callback and no response from resident team regarding callback. Unfortunately course regarding overall plan for hematuria remains unknown. Son remains extraordinarily hesitant to bring patient home without definitive plan for resoluteion of hematuria. Discussed with nursing; will need to discuss with administration regarding overall plan given protracted course of admit and ongoing issue. He has no clots today and no s/s obstruction. 10 system ROS Unreliable Medication list reviewed; as documented per orders and above. O: All vital signs reviewed per ER records and are as per EMR NAD, AAOx1 but limited communciation as ESL with underlying organic dementia, Resting in bed NC AT EOMI PERRLA Neck supple, trachea midline, no nani LN RRR s1/2 Lungs CTAB, w/ sym expansion NT ND +BS No skin breakdown or rashes noted CN2-12 wnl, no new focal deficits noted Muscle tone normal, no deficits in motor function or strength noted Normal mood, appropriate behavior, average insight EKG: CXR: Other Imaging: Prior Diagnostics: Seen and examined; agree with resident note aside from as supplemented below by myself. Independently reviewed all labs, vitals, and diagnostics. In addition I verified all patel historic and PE findings. Unchanged; no issues overnight. Hematuria recurred despite plans for DC. He will likely be kept inpatient though the weekend pending further urologic intervention. Spoke with resident team at length regarding need to determine with urology definitive meaures. We are holding AC with SCDs for DVT ppx ( plavix can be held given acute significant bleed and no recent stents). Will continue to monitor and redirect. No issues with agitation as Zyprexa has continued to have a positive effect. Overall will monitor inpatient for the weekend and discuss DC with consulting providers. 1) DKA 2/2 issues with managing insulin pump, resolved-DC on SQ insulin 2) Uncontrolled DM -Continually adjusting insulin. Complete control has proven difficult with this patient but is preferable to the ongoing issue with pump. No further input from endo noted. Avoiding hypoglycemia but has intermittent spikes of hyper. Will need endocrine followup post DC. 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 Can discuss therapeutic tap as needed but per neuro and neurosurgery with extensive discussion as documented last week this likely should be done OP. Will continue to monitor. Informed son of this developent as his mentation was a barrier to initial DC planning to facility 4) Acute Cystitis with Hematuria vs. Nani Hematuria- Abx per ID; continue to monitor. Ongoing trauma 2/2 underlying dementia vs. infectious origin. 5) Urinary Obstruction - Continue tamsulosin and finasteride. 6) KIKI on CKD-III, improved - Improved to resolve, underlying CKD likely secondary to diabetes mellitus being so uncontrolled. We will continue to monitor. He should follow-up with his creative services writer upon discharge. 7) Hx CAD s/p CABG 8) Underlying Dementia (documented as Alzheimer's Type) 9) Hx D-CHF 10) Lactic Acidosis, resolved 11) Hypernatremia, resolved 12) Hx HTN 13) Hx HLD 14) Hx COPD, no acute exacerbation ) Ongoing hematuria remains barrier to DC. Pending final urology recs. Discussed case at length with casey saw operator Merly Correa who agrees that inpateint care is warranted given the ongoing hematuria. It had resolution briefly last week then severe recurrance that prompted the CBI per uro. Initial DC held due to facility reluctance for acceptance due to ongoing cognitive impairment secondary to organic dementia/NPH that per Dr. Palacio and Dr. Edouard may be worked up as an outpatient. His initial reason for admission was due to DKA secondary to noncompliance with insulin pump exacerbated likely by his and his 's underlying cognitive issues and poor diet. He was transitioned to SQ insulin with good effect and no further DKA or profound hypoglycemia but his glucose remains difficult to control. Initially this was noted to be due to ongoing high sugar foods being given by family but now noted to be ongoing but to a lesser degree. Tapering insulin. Seen once by chel here and will be referred to their services for continued outpatient workup; they agreed with discontinuing the pump. Providing extensive teaching to family regarding home care as insurance will not approve facility despite multiple conversations and attempts as documented by myself and CM and SW earlier in the chart. Continuing CBI until definitive plan per uro. Monitoring glucose and CBC carefully. <Hernesto Cook - Last Filed: 09/25/19 00:48>
[2019-09-23 08:06] LABS: ALBUMIN 2.4 g/dl (3.4-5.0); BILIRUBIN,TOTAL 0.5 mg/dL (0.2-1); BLOOD UREA NITROGEN 12.9 mg/dL (7-18); CALCIUM 8.5 mg/dL (8.5-10.1); CREATININE 0.9 mg/dL (0.55-1.3); POTASSIUM 4.2 mmol/L (3.5-5.1); TOT PROT 6.3 g/dl (6.4-8.2)
[2019-09-23] MEDS ORDERED: INSULIN (LEVEMIR) 100 UNITS/ML UNITS SQ ONE (11:18)
[2019-09-23] MEDS: FERROUS SO4 325 MG TABLET (FP) PO SCH ×2 (11:26→17:31)
[2019-09-23] MEDS: DONEPEZIL HCL 10 MG TABLET (FP) PO SCH (11:26)
[2019-09-23] MEDS: INSULIN (LEVEMIR) 100 UNITS/ML UNITS SQ SCH (11:26)
[2019-09-23] MEDS: ESCITALOPRAM OXALATE 10 MG TABLET (FP) PO SCH (11:26)
[2019-09-23] MEDS: TAMSULOSIN HCL 0.4 MG CAP PO SCH ×2 (11:26→21:28)
[2019-09-23] MEDS: NYSTATIN POWDER 100,000 UNITS/GM - 15 GM TOPICAL POWDER TP SCH ×2 (11:28→21:28)
[2019-09-23] MEDS: FINASTERIDE 5 MG TABLET (FP) PO SCH (11:29)
--- NOTE | 2019-09-23 11:53 | PN ---
Progress Note, Physician History of Present Illness: stable cbi ongoing hematuria clearing up - Current Medication List Current Medications: Active Medications Acetaminophen (Tylenol -) 650 mg PO Q4H PRN PRN Reason: FEVER Last Admin: 09/22/19 13:29 Dose: 650 mg Atorvastatin Calcium (Lipitor -) 40 mg PO HS [facility] Last Admin: 09/22/19 21:39 Dose: 40 mg Donepezil HCl (Aricept -) 10 mg PO DAILY [facility] Last Admin: 09/23/19 11:26 Dose: 10 mg Ezetimibe (Zetia -) 10 mg PO HS [facility] Last Admin: 09/22/19 21:39 Dose: 10 mg Escitalopram Oxalate (Lexapro -) 10 mg PO DAILY [facility] Last Admin: 09/23/19 11:26 Dose: 10 mg Ferrous Sulfate (Feosol -) 325 mg PO BIDWM [facility] Last Admin: 09/23/19 11:26 Dose: 325 mg Finasteride (Proscar -) 5 mg PO DAILY [facility] Last Admin: 09/23/19 11:29 Dose: 5 mg Insulin Aspart (Novolog Vial Sliding Scale -) [address] [facility]; Protocol Last Admin: 09/23/19 06:59 Dose: Not Given Insulin Aspart (Novolog Vial) 2 units SQ ACLD [facility] Insulin Detemir (Levemir Vial) 28 units SQ AM [facility] Last Admin: 09/23/19 11:26 Dose: 28 units Nebivolol (Bystolic -) 2.5 mg PO HS [facility] Last Admin: 09/22/19 21:38 Dose: 2.5 mg Nystatin (Nystop Powder -) 1 applic TP BID [facility] Last Admin: 09/23/19 11:28 Dose: 1 applic Ondansetron HCl (Zofran Injection) 4 mg IVPUSH Q6H PRN PRN Reason: NAUSEA AND/OR VOMITING Tamsulosin HCl (Flomax -) 0.4 mg PO BID@0830,2200 [facility] Last Admin: 09/23/19 11:26 Dose: 0.4 mg - Objective Vital Signs: Vital Signs Temperature 97.8 F 09/23/19 09:01 Pulse Rate 60 09/23/19 09:01 Respiratory Rate 20 09/23/19 09:01 Blood Pressure 136/73 09/23/19 09:01 O2 Sat by Pulse Oximetry (%) 96 09/23/19 08:55 Constitutional: Yes: No Distress, Calm Cardiovascular: Yes: S1, S2 Respiratory: Yes: Regular, CTA Bilaterally Gastrointestinal: Yes: Normal Bowel Sounds, Soft Genitourinary: Yes: Strong Present, Other (cbi) Musculoskeletal: Yes: WNL Extremities: Yes: WNL Neurological: Yes: Alert, Other (blind) Labs: CBC, BMP 09/23/19 06:30 09/23/19 06:30 INR, PTT INR 1.42 (0.83-1.09) H 09/14/19 06:38 Assessment/Plan 79 year old man with a history of HTN, hyperlipidemia, CAD, HI, CABG, chronic diastolic heart failure, type 2 DM, stage 3 CKD, COPD, dementia who presented to the ED with altered mental status. 1. Acute metabolic encephalopathy 2. Acute kidney injury 3. Abdominal pain 4. UTI 5. Lactic acidosis 6. Hypernatremia 7. Hypophosphatemia 8. HTN 9. Hyperlipidemia 10. CAD, history of HI, CABG 11. Chronic diastolic heart failure 12. Stage 3 CKD 13. COPD 14. Alzheimer dementia plan continue current mgmt monitor as per urology nephro on case rest as per the team
--- NOTE | 2019-09-23 11:59 | PN ---
Progress Note, GATE PERSON - Note Progress Note: Selected Entries 09/03/19 09/03/19 09/03/19 02:00 06:00 10:59 Breakfast 75% Lunch Supper Temperature 99.3 F 99.0 F 09/22/19 09/22/19 09/22/19 06:00 09:23 09:45 Breakfast 100% Lunch Supper Temperature 97.6 F 98.3 F 09/22/19 09/22/19 09/22/19 13:07 14:03 21:31 Breakfast Lunch 100% Supper 100% Temperature 97.3 F L 97.5 F L 09/22/19 09/23/19 09/23/19 22:00 06:00 09:01 Breakfast Lunch Supper Temperature 98.1 F 97.5 F L 97.8 F Laboratory Tests 09/01/19 09/02/19 09/21/19 21:00 03:00 05:25 WBC 18.0 H 15.8 H 8.5 09/23/19 06:30 WBC 7.6 Pt reported to be tolerating puree/thin liquids. Nursing feels he should not be upgraded as he sometimes chews on meds and then coughs responsively. Tolerating diet. Monitor tolerance
[2019-09-23] MEDS: INSULIN (NOVOLOG) ASPART 100 UNITS/ML 10ML VIAL SQ SCH ×2 (13:24→17:33)
--- NOTE | 2019-09-23 15:04 | PN ---
Progress Note, Physician History of Present Illness: Pt seen and examined at bedside. He appears comfortable. - Current Medication List Current Medications: Active Medications Acetaminophen (Tylenol -) 650 mg PO Q4H PRN PRN Reason: FEVER Last Admin: 09/22/19 13:29 Dose: 650 mg Atorvastatin Calcium (Lipitor -) 40 mg PO HS [facility] Last Admin: 09/22/19 21:39 Dose: 40 mg Donepezil HCl (Aricept -) 10 mg PO DAILY [facility] Last Admin: 09/23/19 11:26 Dose: 10 mg Ezetimibe (Zetia -) 10 mg PO HS [facility] Last Admin: 09/22/19 21:39 Dose: 10 mg Escitalopram Oxalate (Lexapro -) 10 mg PO DAILY [facility] Last Admin: 09/23/19 11:26 Dose: 10 mg Ferrous Sulfate (Feosol -) 325 mg PO BIDWM [facility] Last Admin: 09/23/19 11:26 Dose: 325 mg Finasteride (Proscar -) 5 mg PO DAILY [facility] Last Admin: 09/23/19 11:29 Dose: 5 mg Insulin Aspart (Novolog Vial Sliding Scale -) 1 vial SQ ACHS [facility]; Protocol Last Admin: 09/23/19 13:23 Dose: 6 units Insulin Aspart (Novolog Vial) 2 units SQ ACLD [facility] Last Admin: 09/23/19 13:24 Dose: 2 units Insulin Detemir (Levemir Vial) 28 units SQ AM [facility] Last Admin: 09/23/19 11:26 Dose: 28 units Nebivolol (Bystolic -) 2.5 mg PO HS [facility] Last Admin: 09/22/19 21:38 Dose: 2.5 mg Nystatin (Nystop Powder -) 1 applic TP BID [facility] Last Admin: 09/23/19 11:28 Dose: 1 applic Ondansetron HCl (Zofran Injection) 4 mg IVPUSH Q6H PRN PRN Reason: NAUSEA AND/OR VOMITING Tamsulosin HCl (Flomax -) 0.4 mg PO BID@0830,2200 [facility] Last Admin: 09/23/19 11:26 Dose: 0.4 mg - Objective Vital Signs: Vital Signs Temperature 97.8 F 09/23/19 09:01 Pulse Rate 60 09/23/19 09:01 Respiratory Rate 20 09/23/19 09:01 Blood Pressure 136/73 09/23/19 09:01 O2 Sat by Pulse Oximetry (%) 96 09/23/19 08:55 Constitutional: Yes: Calm Eyes: Yes: Other (blind) HENT: Yes: Atraumatic Neck: Yes: Supple Cardiovascular: Yes: S1, S2 Respiratory: Yes: CTA Bilaterally Gastrointestinal: Yes: Soft Genitourinary: Yes: Other (pt on CBI) Musculoskeletal: Yes: WNL Edema: LLE: Trace, RLE: Trace Neurological: Yes: Oriented Labs: CBC, BMP 09/23/19 06:30 09/23/19 06:30 INR, PTT INR 1.42 (0.83-1.09) H 09/14/19 06:38 Problem List - Problems (1) KIKI (acute kidney injury) Code(s): N17.9 - ACUTE KIDNEY FAILURE, UNSPECIFIED (2) DKA (diabetic ketoacidoses) Code(s): E11.10 - TYPE 2 DIABETES MELLITUS WITH KETOACIDOSIS WITHOUT COMA Qualifiers: Diabetes mellitus type: type 2 Diabetes mellitus complication detail: without coma Qualified Code(s): E11.10 - Type 2 diabetes mellitus with ketoacidosis without coma (3) Acute renal failure Code(s): N17.9 - ACUTE KIDNEY FAILURE, UNSPECIFIED (4) Hypernatremia Code(s): E87.0 - HYPEROSMOLALITY AND HYPERNATREMIA Assessment/Plan Current Medications Generic Name Dose Route Start Last Admin Trade Name Freq PRN Reason Stop Dose Admin Acetaminophen 650 mg 09/04/19 10:34 09/22/19 13:29 Tylenol - PO 650 mg Q4H PRN Administration FEVER Atorvastatin Calcium 40 mg 09/02/19 22:00 09/22/19 21:39 Lipitor - PO 40 mg HS DAISHA Administration Donepezil HCl 10 mg 09/11/19 10:00 09/23/19 11:26 Aricept - PO 10 mg DAILY DAISHA Administration Ezetimibe 10 mg 09/02/19 22:00 09/22/19 21:39 Zetia - PO 10 mg HS DAISHA Administration Escitalopram Oxalate 10 mg 09/11/19 10:00 09/23/19 11:26 Lexapro - PO 10 mg DAILY DAISHA Administration Ferrous Sulfate 325 mg 09/15/19 17:30 09/23/19 11:26 Feosol - PO 325 mg BIDWM DAISHA Administration Finasteride 5 mg 09/11/19 10:00 09/23/19 11:29 Proscar - PO 5 mg DAILY DAISHA Administration Insulin Aspart 1 vial 09/19/19 07:03 09/23/19 13:23 Novolog Vial Sliding Scale - SQ 6 units ACHS [facility]ISHA Administration Protocol Insulin Aspart 2 units 09/23/19 07:48 09/23/19 13:24 Novolog Vial SQ 2 units ACLD DAISHA Administration Insulin Detemir 28 units 09/22/19 09:00 09/23/19 11:26 Levemir Vial SQ 28 units AM [facility]ISHA Administration Nebivolol 2.5 mg 09/02/19 22:00 09/22/19 21:38 Bystolic - PO 2.5 mg HS DAISHA Administration Nystatin 1 applic 09/05/19 11:30 09/23/19 11:28 Nystop Powder - TP 1 applic BID DAISHA Administration Ondansetron HCl 4 mg 09/13/19 17:01 Zofran Injection IVPUSH Q6H PRN NAUSEA AND/OR VOMITING Tamsulosin HCl 0.4 mg 09/11/19 08:45 09/23/19 11:26 Flomax - PO 0.4 mg BID@0830,2200 DAISHA Administration Impression 1. KIKI 2. DKA 3. hypernatremia 4. DM 5. dementia 6. cad 7. hyperkalemia 8. hematuria Plan - renal function stable - pending urology follow up - avoid nsaids and nephrotoxins - hematuria returns when cbi is stopped - diabetic diet
[2019-09-23] MEDS ORDERED: PT OWN MED DRAWER 7, Y5N ONE (19:52)
[2019-09-23] MEDS: ATORVASTATIN CA 40 MG TABLET (FP) PO SCH (21:28)
[2019-09-23] MEDS: EZETIMIBE 10 MG TABLET (FP) PO SCH (21:28)
[2019-09-23] MEDS: NEBIVOLOL 2.5 MG TABLET (FP) PO SCH (21:28)
[2019-09-24] MEDS ORDERED: DEXTROSE 50%-WATER - 25 GM/50 ML VIAL IVPUSH ONE (06:56)
[2019-09-24] MEDS: INSULIN SLIDING SCALE (NOVOLOG) 1 VIAL SQ SCH ×4 (07:18→22:08)
[2019-09-24] MEDS: INSULIN (LEVEMIR) 100 UNITS/ML UNITS SQ SCH (07:18)
[2019-09-24 07:47] LABS: HEMATOCRIT 31.1 % (35.4-49); HEMOGLOBIN 10.2 GM/dL (11.7-16.9); MCHC 32.7 g/dl (32.0-35.9); MEAN CELL VOLUME 88.7 fl (80-96); MEAN PLT VOLUME 7.8 fl (7.5-11.1); PLATELET COUNT 218 K/MM3 (134-434); RBC 3.51 M/mm3 (4.00-5.60); RDW 15.5 % (11.9-15.9); WHITE BLOOD COUNT 7.9 K/mm3 (4.0-10.0)
[2019-09-24 08:01] LABS: BLOOD UREA NITROGEN 13.1 mg/dL (7-18); CALCIUM 8.9 mg/dL (8.5-10.1); CREATININE 0.9 mg/dL (0.55-1.3); MAGNESIUM 2.5 mg/dL (1.8-2.4); POTASSIUM 4.6 mmol/L (3.5-5.1)
[2019-09-24] MEDS: TAMSULOSIN HCL 0.4 MG CAP PO SCH ×2 (10:06→22:03)
[2019-09-24] MEDS: FERROUS SO4 325 MG TABLET (FP) PO SCH ×2 (10:06→16:40)
[2019-09-24] MEDS: ESCITALOPRAM OXALATE 10 MG TABLET (FP) PO SCH (10:06)
[2019-09-24] MEDS: DONEPEZIL HCL 10 MG TABLET (FP) PO SCH (10:06)
[2019-09-24] MEDS: FINASTERIDE 5 MG TABLET (FP) PO SCH (10:06)
[2019-09-24] MEDS: NYSTATIN POWDER 100,000 UNITS/GM - 15 GM TOPICAL POWDER TP SCH ×2 (11:41→23:16)
--- NOTE | 2019-09-24 11:44 | PN ---
Progress Note, Physician History of Present Illness: stable on cbi - Current Medication List Current Medications: Active Medications Acetaminophen (Tylenol -) 650 mg PO Q4H PRN PRN Reason: FEVER Last Admin: 09/22/19 13:29 Dose: 650 mg Atorvastatin Calcium (Lipitor -) 40 mg PO HS [facility] Last Admin: 09/23/19 21:28 Dose: 40 mg Donepezil HCl (Aricept -) 10 mg PO DAILY [facility] Last Admin: 09/24/19 10:06 Dose: Not Given Ezetimibe (Zetia -) 10 mg PO HS [facility] Last Admin: 09/23/19 21:28 Dose: 10 mg Escitalopram Oxalate (Lexapro -) 10 mg PO DAILY [facility] Last Admin: 09/24/19 10:06 Dose: Not Given Ferrous Sulfate (Feosol -) 325 mg PO BIDWM [facility] Last Admin: 09/24/19 10:06 Dose: Not Given Finasteride (Proscar -) 5 mg PO DAILY [facility] Last Admin: 09/24/19 10:06 Dose: Not Given Insulin Aspart (Novolog Vial Sliding Scale -) 1 vial SQ ACHS [facility]; Protocol Last Admin: 09/24/19 07:18 Dose: Not Given Insulin Aspart (Novolog Vial) 2 units SQ ACLD [facility] Last Admin: 09/23/19 17:33 Dose: 2 units Insulin Detemir (Levemir Vial) 28 units SQ AM [facility] Last Admin: 09/24/19 07:18 Dose: Not Given Nebivolol (Bystolic -) 2.5 mg PO HS [facility] Last Admin: 09/23/19 21:28 Dose: 2.5 mg Nystatin (Nystop Powder -) 1 applic TP BID [facility] Last Admin: 09/24/19 11:41 Dose: Not Given Ondansetron HCl (Zofran Injection) 4 mg IVPUSH Q6H PRN PRN Reason: NAUSEA AND/OR VOMITING Tamsulosin HCl (Flomax -) 0.4 mg PO BID@0830,2200 [facility] Last Admin: 09/24/19 10:06 Dose: Not Given - Objective Vital Signs: Vital Signs Temperature 97.6 F 09/24/19 06:00 Pulse Rate 76 09/24/19 06:00 Respiratory Rate 20 09/24/19 08:49 Blood Pressure 118/72 09/24/19 06:00 O2 Sat by Pulse Oximetry (%) 96 09/24/19 08:49 Constitutional: Yes: No Distress, Calm Cardiovascular: Yes: Regular Rate and Rhythm Respiratory: Yes: Regular, CTA Bilaterally Gastrointestinal: Yes: Normal Bowel Sounds, Soft Musculoskeletal: Yes: WNL Extremities: Yes: WNL Neurological: Yes: Alert Labs: CBC, BMP 09/24/19 06:42 09/24/19 06:42 INR, PTT INR 1.42 (0.83-1.09) H 09/14/19 06:38 Assessment/Plan 79 year old man with a history of HTN, hyperlipidemia, CAD, TX, CABG, chronic diastolic heart failure, type 2 DM, stage 3 CKD, COPD, dementia who presented to the ED with altered mental status. 1. Acute metabolic encephalopathy 2. Acute kidney injury 3. Abdominal pain 4. UTI 5. Lactic acidosis 6. Hypernatremia 7. Hypophosphatemia 8. HTN 9. Hyperlipidemia 10. CAD, history of TX, CABG 11. Chronic diastolic heart failure 12. Stage 3 CKD 13. COPD 14. Alzheimer dementia plan continue current mgmt monitor as per urology nephro on case rest as per the team
[2019-09-24] MEDS: INSULIN (NOVOLOG) ASPART 100 UNITS/ML 10ML VIAL SQ SCH ×2 (12:10→16:24)
[2019-09-24] MEDS ORDERED: FUROSEMIDE 20 MG TABLET (FP) PO ONE (16:45)
--- NOTE | 2019-09-24 16:45 | PN ---
Progress Note, Physician History of Present Illness: Pt seen and examined at bedside. He is awake and alert. He does complains of some shortness of breath. - Current Medication List Current Medications: Active Medications Acetaminophen (Tylenol -) 650 mg PO Q4H PRN PRN Reason: FEVER Last Admin: 09/22/19 13:29 Dose: 650 mg Atorvastatin Calcium (Lipitor -) 40 mg PO HS [facility] Last Admin: 09/23/19 21:28 Dose: 40 mg Donepezil HCl (Aricept -) 10 mg PO DAILY [facility] Last Admin: 09/24/19 10:06 Dose: Not Given Ezetimibe (Zetia -) 10 mg PO HS [facility] Last Admin: 09/23/19 21:28 Dose: 10 mg Escitalopram Oxalate (Lexapro -) 10 mg PO DAILY [facility] Last Admin: 09/24/19 10:06 Dose: Not Given Ferrous Sulfate (Feosol -) 325 mg PO BIDWM [facility]S [facility] Last Admin: 09/24/19 16:40 Dose: Not Given Finasteride (Proscar -) 5 mg PO DAILY [facility] Last Admin: 09/24/19 10:06 Dose: Not Given Insulin Aspart (Novolog Vial Sliding Scale -) 1 vial SQ ACHS [facility]; Protocol Last Admin: 09/24/19 16:24 Dose: 4 units Insulin Aspart (Novolog Vial) 2 units SQ ACLD [facility] Last Admin: 09/24/19 16:24 Dose: 2 units Insulin Detemir (Levemir Vial) 28 units SQ AM [facility] Last Admin: 09/24/19 07:18 Dose: Not Given Nebivolol (Bystolic -) 2.5 mg PO HS [facility] Last Admin: 09/23/19 21:28 Dose: 2.5 mg Nystatin (Nystop Powder -) 1 applic TP BID [facility] Last Admin: 09/24/19 11:41 Dose: Not Given Ondansetron HCl (Zofran Injection) 4 mg IVPUSH Q6H PRN PRN Reason: NAUSEA AND/OR VOMITING Tamsulosin HCl (Flomax -) 0.4 mg PO BID@0830,2200 [facility] Last Admin: 09/24/19 10:06 Dose: Not Given - Objective Vital Signs: Vital Signs Temperature 99.2 F 09/24/19 15:11 Pulse Rate 64 09/24/19 15:11 Respiratory Rate 20 09/24/19 15:11 Blood Pressure 133/70 09/24/19 15:11 O2 Sat by Pulse Oximetry (%) 96 09/24/19 08:49 Constitutional: Yes: Calm Eyes: Yes: Conjunctiva Clear HENT: Yes: Atraumatic Cardiovascular: Yes: S1, S2 Respiratory: Yes: CTA Bilaterally Gastrointestinal: Yes: Normal Bowel Sounds, Soft, Abdomen, Obese Genitourinary: Yes: Strong Present, Other (cbi) Edema: Yes Edema: LLE: 1+, RLE: 1+ Integumentary: Yes: WNL Neurological: Yes: Confusion Labs: CBC, BMP 09/24/19 06:42 09/24/19 06:42 INR, PTT INR 1.42 (0.83-1.09) H 09/14/19 06:38 Problem List - Problems (1) KIKI (acute kidney injury) Code(s): N17.9 - ACUTE KIDNEY FAILURE, UNSPECIFIED (2) DKA (diabetic ketoacidoses) Code(s): E11.10 - TYPE 2 DIABETES MELLITUS WITH KETOACIDOSIS WITHOUT COMA Qualifiers: Diabetes mellitus type: type 2 Diabetes mellitus complication detail: without coma Qualified Code(s): E11.10 - Type 2 diabetes mellitus with ketoacidosis without coma (3) Acute renal failure Code(s): N17.9 - ACUTE KIDNEY FAILURE, UNSPECIFIED (4) Hypernatremia Code(s): E87.0 - HYPEROSMOLALITY AND HYPERNATREMIA Assessment/Plan Current Medications Generic Name Dose Route Start Last Admin Trade Name Freq PRN Reason Stop Dose Admin Acetaminophen 650 mg 09/04/19 10:34 09/22/19 13:29 Tylenol - PO 650 mg Q4H PRN Administration FEVER Atorvastatin Calcium 40 mg 09/02/19 22:00 09/23/19 21:28 Lipitor - PO 40 mg HS DAISHA Administration Donepezil HCl 10 mg 09/11/19 10:00 09/24/19 10:06 Aricept - PO Not Given DAILY DAISHA Ezetimibe 10 mg 09/02/19 22:00 09/23/19 21:28 Zetia - PO 10 mg HS DAISHA Administration Escitalopram Oxalate 10 mg 09/11/19 10:00 09/24/19 10:06 Lexapro - PO Not Given DAILY DAISHA Ferrous Sulfate 325 mg 09/15/19 17:30 09/24/19 16:40 Feosol - PO Not Given BIDWM [facility]S [facility]CLUDE 234 BEDS AT [facility] Finasteride 5 mg 09/11/19 10:00 09/24/19 10:06 Proscar - PO Not Given DAILY [facility] 234 [facility]S AT [facility] Insulin Aspart 1 vial 09/19/19 07:03 09/24/19 16:24 Novolog Vial Sliding Scale - SQ 4 units ACHS DAISHA Administration Protocol Insulin Aspart 2 units 09/23/19 07:48 09/24/19 16:24 Novolog Vial SQ 2 units ACLD DAISHA Administration Insulin Detemir 28 units 09/22/19 09:00 09/24/19 07:18 Levemir Vial SQ Not Given AM [facility] Nebivolol 2.5 mg 09/02/19 22:00 09/23/19 21:28 Bystolic - PO 2.5 mg HS DAISHA Administration Nystatin 1 applic 09/05/19 11:30 09/24/19 11:41 Nystop Powder - TP Not Given BID [facility] 234 B[facility]S AT [facility] Ondansetron HCl 4 mg 09/13/19 17:01 Zofran Injection IVPUSH Q6H PRN NAUSEA AND/OR VOMITING Tamsulosin HCl 0.4 mg 09/11/19 08:45 09/24/19 10:06 Flomax - PO Not Given BID@0830,2200 [facility] 234 BEDS AT [facility] Impression 1. KIKI 2. DKA 3. hypernatremia 4. DM 5. dementia 6. cad 7. hyperkalemia 8. hematuria Plan - renal function stable - still pending urology - will order a po dose of lasix - repeat labs in am - diabetic diet
--- NOTE | 2019-09-24 19:58 | PN ---
Progress Note (short form) - Note Progress Note: HPI: Pt remains on CBI. Hypoglycemia noted still, however improving compared to over weekend. Otherwise HPI limited PE: Gen: NAD, awake, alert HEENT: NC/AT, ANTONIO, MMM Neck: No JVD LUNG: CTA bilaterally, however poor inspiratory effort, On RA CARD: RRR no murmurs appreciated ABD: Soft, Nt/ND, normoactive BS: : Strong catheter in place CBI ongoing EXT: No edema appreciated, cap refill <2sec Skin: No rashes or lesions noted CBC, BMP 09/24/19 06:42 09/24/19 06:42 Microbiology 09/01/19 23:00 Blood - Peripheral Venous Blood Culture - Final NO GROWTH AFTER 5 DAYS INCUBATION 09/01/19 23:00 Blood - Peripheral Venous Blood Culture - Final NO GROWTH AFTER 5 DAYS INCUBATION 09/01/19 21:16 Urine - Urine Strong Urine Culture - Final Strep Agalactiae Group B Mr S Aureus Staphylococcus Coagulase Neg Active Medications Acetaminophen (Tylenol -) 650 mg PO Q4H PRN PRN Reason: FEVER Last Admin: 09/22/19 13:29 Dose: 650 mg Atorvastatin Calcium (Lipitor -) 40 mg PO HS [facility] Last Admin: 09/24/19 22:03 Dose: 40 mg Donepezil HCl (Aricept -) 10 mg PO DAILY [facility] Last Admin: 09/24/19 10:06 Dose: Not Given Ezetimibe (Zetia -) 10 mg PO HS [facility] Last Admin: 09/24/19 22:02 Dose: 10 mg Escitalopram Oxalate (Lexapro -) 10 mg PO DAILY [facility] Last Admin: 09/24/19 10:06 Dose: Not Given Ferrous Sulfate (Feosol -) 325 mg PO BIDWM [facility] Last Admin: 09/24/19 16:40 Dose: Not Given Finasteride (Proscar -) 5 mg PO DAILY [facility] Last Admin: 09/24/19 10:06 Dose: Not Given Insulin Aspart (Novolog Vial Sliding Scale -) 1 vial SQ ACHS [facility]; Protocol Last Admin: 09/24/19 22:08 Dose: 6 units Insulin Aspart (Novolog Vial) 2 units SQ ACLD [facility] Last Admin: 09/24/19 16:24 Dose: 2 units Insulin Detemir (Levemir Vial) 28 units SQ AM [facility] Last Admin: 09/24/19 07:18 Dose: Not Given Nebivolol (Bystolic -) 2.5 mg PO HS [facility] Last Admin: 09/24/19 22:02 Dose: 2.5 mg Nystatin (Nystop Powder -) 1 applic TP BID [facility] Last Admin: 09/24/19 23:16 Dose: 1 applic Ondansetron HCl (Zofran Injection) 4 mg IVPUSH Q6H PRN PRN Reason: NAUSEA AND/OR VOMITING Tamsulosin HCl (Flomax -) 0.4 mg PO BID@0830,2200 [facility] Last Admin: 09/24/19 22:03 Dose: 0.4 mg Assessment and Plan: DKA (resolved) Hypernatremia (resolved) Acute kidney injury (Resolved) Type 2 DM 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 Edwards and Dr. Edouard how even trial of LP or [employer] shunting not viable for patient's NPH --Contnue Flomax 0.4mg BID PO --Continue Proscar 5mg qdaily --Lexapro 10mg and Aricept 10mg qdaily FEN: Fluids: PO encouragement PPX: DVT - scds Dispo: Continue monitoring Case discussed with Dr. Joey Grubbs, DO - IM PGY-3 <Stevie Grubbs - Last Filed: 09/24/19 23:22> - Note Progress Note: I have seen and examined the indicated patient independently/along with the resident team. I have personally verified all patel exam findings and historical components. I have personally interpreted all diagnostics indicated per todays orders and reviewed interpretation of indicated subspecialty services. This patient meets a high level of medical complexity and warrants indicated LOC to avoid decompensation and worsening of the indicated illness. S: Agree with historical findings as outlined in resident documentation regarding history of present illness. No further events communicated to myself from overnight. No callback and no response from resident team regarding callback. Unfortunately course regarding overall plan for hematuria remains unknown. Son remains extraordinarily hesitant to bring patient home without definitive plan for resoluteion of hematuria. Discussed with nursing; will need to discuss with administration regarding overall plan given protracted course of admit and ongoing issue. He has no clots today and no s/s obstruction. 10 system ROS Unreliable Medication list reviewed; as documented per orders and above. O: All vital signs reviewed per ER records and are as per EMR NAD, AAOx1 but limited communciation as ESL with underlying organic dementia, Resting in bed NC AT EOMI PERRLA Neck supple, trachea midline, no nani LN RRR s1/2 Lungs CTAB, w/ sym expansion NT ND +BS No skin breakdown or rashes noted CN2-12 wnl, no new focal deficits noted Muscle tone normal, no deficits in motor function or strength noted Normal mood, appropriate behavior, average insight EKG: CXR: Other Imaging: Prior Diagnostics: Seen and examined; agree with resident note aside from as supplemented below by myself. Independently reviewed all labs, vitals, and diagnostics. In addition I verified all patel historic and PE findings. Unchanged; no issues overnight. Hematuria recurred despite plans for DC. He will likely be kept inpatient though the weekend pending further urologic intervention. Spoke with resident team at length regarding need to determine with urology definitive meaures. We are holding AC with SCDs for DVT ppx ( plavix can be held given acute significant bleed and no recent stents). Will continue to monitor and redirect. No issues with agitation as Zyprexa has continued to have a positive effect. Overall will monitor inpatient for the weekend and discuss DC with consulting providers. 1) DKA 2/2 issues with managing insulin pump, resolved-DC on SQ insulin 2) Uncontrolled DM -Continually adjusting insulin. Complete control has proven difficult with this patient but is preferable to the ongoing issue with pump. No further input from endo noted. Avoiding hypoglycemia but has intermittent spikes of hyper. Will need endocrine followup post DC. 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 Can discuss therapeutic tap as needed but per neuro and neurosurgery with extensive discussion as documented last week this likely should be done OP. Will continue to monitor. Informed son of this developent as his mentation was a barrier to initial DC planning to facility 4) Acute Cystitis with Hematuria vs. Nani Hematuria- Abx per ID; continue to monitor. Ongoing trauma 2/2 underlying dementia vs. infectious origin. 5) Urinary Obstruction - Continue tamsulosin and finasteride. 6) KIKI on CKD-III, improved - Improved to resolve, underlying CKD likely secondary to diabetes mellitus being so uncontrolled. We will continue to monitor. He should follow-up with his patient transport officer upon discharge. 7) Hx CAD s/p CABG 8) Underlying Dementia (documented as Alzheimer's Type) 9) Hx D-CHF 10) Lactic Acidosis, resolved 11) Hypernatremia, resolved 12) Hx HTN 13) Hx HLD 14) Hx COPD, no acute exacerbation ) Ongoing hematuria remains barrier to DC. Pending final urology recs. Discussed case at length with classification case manager Merly Correa who agrees that inpateint care is warranted given the ongoing hematuria. It had resolution briefly last week then severe recurrance that prompted the CBI per uro. Initial DC held due to facility reluctance for acceptance due to ongoing cognitive impairment secondary to organic dementia/NPH that per Dr. Palacio and Dr. Edouard may be worked up as an outpatient. His initial reason for admission was due to DKA secondary to noncompliance with insulin pump exacerbated likely by his and his 's underlying cognitive issues and poor diet. He was transitioned to SQ insulin with good effect and no further DKA or profound hypoglycemia but his glucose remains difficult to control. Initially this was noted to be due to ongoing high sugar foods being given by family but now noted to be ongoing but to a lesser degree. Tapering insulin. Seen once by endo here and will be referred to their services for continued outpatient workup; they agreed with discontinuing the pump. Providing extensive teaching to family regarding home care as insurance will not approve facility despite multiple conversations and attempts as documented by myself and CM and SW earlier in the chart. Continuing CBI until definitive plan per uro. Monitoring glucose and CBC carefully. Spoke to ADDIS Shelton who was in touch with Dr. Morris's partner who will be by to assess the patient and to discuss the further discharge planning required from urological perspective. Asked to be called to the floor when they arrive. No new issues per patient or family; remains at mental status baseline and is continuously stable on their Zyprexa. Once urology sees them, pending confirmation of transport and already arranged for home services, they will be cleared for discharge. Full Code <Hernesto Cook - Last Filed: 09/25/19 00:50>
[2019-09-24] MEDS: EZETIMIBE 10 MG TABLET (FP) PO SCH (22:02)
[2019-09-24] MEDS: NEBIVOLOL 2.5 MG TABLET (FP) PO SCH (22:02)
[2019-09-24] MEDS: ATORVASTATIN CA 40 MG TABLET (FP) PO SCH (22:03)
[2019-09-24] MEDS ORDERED: INSULIN (LEVEMIR) 100 UNITS/ML UNITS SQ SCH ×2 (23:20→23:22)
[2019-09-25] MEDS: INSULIN SLIDING SCALE (NOVOLOG) 1 VIAL SQ SCH ×4 (06:41→22:57)
[2019-09-25 07:25] LABS: HEMATOCRIT 32.3 % (35.4-49); HEMOGLOBIN 10.4 GM/dL (11.7-16.9); MCH 28.8 pg (25.7-33.7); MCHC 32.2 g/dl (32.0-35.9); MEAN CELL VOLUME 89.4 fl (80-96); MEAN PLT VOLUME 7.9 fl (7.5-11.1); PLATELET COUNT 206 K/MM3 (134-434); RBC 3.61 M/mm3 (4.00-5.60); RDW 15.7 % (11.9-15.9); WHITE BLOOD COUNT 7.4 K/mm3 (4.0-10.0)
[2019-09-25] MEDS: TAMSULOSIN HCL 0.4 MG CAP PO SCH ×2 (07:52→22:49)
[2019-09-25] MEDS: FERROUS SO4 325 MG TABLET (FP) PO SCH ×2 (07:52→16:41)
[2019-09-25 07:56] LABS: ALBUMIN 2.5 g/dl (3.4-5.0); BILIRUBIN,TOTAL 0.6 mg/dL (0.2-1); BLOOD UREA NITROGEN 17.2 mg/dL (7-18); CALCIUM 8.4 mg/dL (8.5-10.1); MAGNESIUM 2.5 mg/dL (1.8-2.4); PHOSPHOROUS 2.9 mg/dL (2.5-4.9); POTASSIUM 4.8 mmol/L (3.5-5.1); TOT PROT 6.5 g/dl (6.4-8.2)
[2019-09-25] MEDS: FINASTERIDE 5 MG TABLET (FP) PO SCH (09:39)
[2019-09-25] MEDS: DONEPEZIL HCL 10 MG TABLET (FP) PO SCH (09:39)
[2019-09-25] MEDS: ESCITALOPRAM OXALATE 10 MG TABLET (FP) PO SCH (09:39)
[2019-09-25] MEDS: NYSTATIN POWDER 100,000 UNITS/GM - 15 GM TOPICAL POWDER TP SCH ×2 (09:39→22:51)
[2019-09-25] MEDS: INSULIN (LEVEMIR) 100 UNITS/ML UNITS SQ SCH (09:40)
--- NOTE | 2019-09-25 11:35 | PN ---
Progress Note, Physician History of Present Illness: stable on cbi urine clearing up - Current Medication List Current Medications: Active Medications Acetaminophen (Tylenol -) 650 mg PO Q4H PRN PRN Reason: FEVER Last Admin: 09/22/19 13:29 Dose: 650 mg Atorvastatin Calcium (Lipitor -) 40 mg PO HS [facility] Last Admin: 09/24/19 22:03 Dose: 40 mg Donepezil HCl (Aricept -) 10 mg PO DAILY [facility] Last Admin: 09/25/19 09:39 Dose: 10 mg Ezetimibe (Zetia -) 10 mg PO HS [facility] Last Admin: 09/24/19 22:02 Dose: 10 mg Escitalopram Oxalate (Lexapro -) 10 mg PO DAILY [facility] Last Admin: 09/25/19 09:39 Dose: 10 mg Ferrous Sulfate (Feosol -) 325 mg PO BIDWM [facility] Last Admin: 09/25/19 07:52 Dose: Not Given Finasteride (Proscar -) 5 mg PO DAILY [facility] Last Admin: 09/25/19 09:39 Dose: 5 mg Insulin Aspart (Novolog Vial Sliding Scale -) 1 vial SQ ACHS [facility]; Protocol Last Admin: 09/25/19 06:41 Dose: 4 units Insulin Aspart (Novolog Vial) 2 units SQ ACLD [facility] Last Admin: 09/24/19 16:24 Dose: 2 units Insulin Detemir (Levemir Vial) 26 units SQ AM [facility] Last Admin: 09/25/19 09:40 Dose: Not Given Nebivolol (Bystolic -) 2.5 mg PO HS [facility] Last Admin: 09/24/19 22:02 Dose: 2.5 mg Nystatin (Nystop Powder -) 1 applic TP BID [facility] Last Admin: 09/25/19 09:39 Dose: 1 applic Ondansetron HCl (Zofran Injection) 4 mg IVPUSH Q6H PRN PRN Reason: NAUSEA AND/OR VOMITING Tamsulosin HCl (Flomax -) 0.4 mg PO BID@0830,2200 [facility] Last Admin: 09/25/19 07:52 Dose: Not Given - Objective Vital Signs: Vital Signs Temperature 97.5 F L 09/25/19 10:00 Pulse Rate 60 09/25/19 10:00 Respiratory Rate 18 09/25/19 10:00 Blood Pressure 117/53 L 09/25/19 10:00 O2 Sat by Pulse Oximetry (%) 100 09/25/19 09:00 Constitutional: Yes: No Distress, Calm Cardiovascular: Yes: S1, S2 Respiratory: Yes: Regular, CTA Bilaterally Gastrointestinal: Yes: Normal Bowel Sounds, Soft Genitourinary: Yes: Strong Present Musculoskeletal: Yes: WNL Extremities: Yes: WNL Neurological: Yes: Alert, Other Psychiatric: Yes: Other Labs: CBC, BMP 09/25/19 06:10 09/25/19 06:10 INR, PTT INR 1.42 (0.83-1.09) H 09/14/19 06:38 Assessment/Plan 79 year old man with a history of HTN, hyperlipidemia, CAD, MA, CABG, chronic diastolic heart failure, type 2 DM, stage 3 CKD, COPD, dementia who presented to the ED with altered mental status. 1. Acute metabolic encephalopathy 2. Acute kidney injury 3. Abdominal pain 4. UTI 5. Lactic acidosis 6. Hypernatremia 7. Hypophosphatemia 8. HTN 9. Hyperlipidemia 10. CAD, history of MA, CABG 11. Chronic diastolic heart failure 12. Stage 3 CKD 13. COPD 14. Alzheimer dementia plan continue current mgmt monitor as per urology nephro on case rest as per the team
[2019-09-25] MEDS: INSULIN (NOVOLOG) ASPART 100 UNITS/ML 10ML VIAL SQ SCH ×2 (11:37→16:41)
--- NOTE | 2019-09-25 13:31 | PN ---
Progress Note, Physician History of Present Illness: Pt seen and examined at bedside. He is awake and alert. - Current Medication List Current Medications: Active Medications Acetaminophen (Tylenol -) 650 mg PO Q4H PRN PRN Reason: FEVER Last Admin: 09/22/19 13:29 Dose: 650 mg Atorvastatin Calcium (Lipitor -) 40 mg PO HS [facility] Last Admin: 09/24/19 22:03 Dose: 40 mg Donepezil HCl (Aricept -) 10 mg PO DAILY [facility] Last Admin: 09/25/19 09:39 Dose: 10 mg Ezetimibe (Zetia -) 10 mg PO HS [facility] Last Admin: 09/24/19 22:02 Dose: 10 mg Escitalopram Oxalate (Lexapro -) 10 mg PO DAILY [facility] Last Admin: 09/25/19 09:39 Dose: 10 mg Ferrous Sulfate (Feosol -) 325 mg PO BIDWM [facility] Last Admin: 09/25/19 07:52 Dose: Not Given Finasteride (Proscar -) 5 mg PO DAILY [facility] Last Admin: 09/25/19 09:39 Dose: 5 mg Insulin Aspart (Novolog Vial Sliding Scale -) 1 vial SQ ACHS [facility]; Protocol Last Admin: 09/25/19 11:37 Dose: 4 units Insulin Aspart (Novolog Vial) 2 units SQ ACLD [facility] Last Admin: 09/25/19 11:37 Dose: 2 units Insulin Detemir (Levemir Vial) 26 units SQ AM [facility] Last Admin: 09/25/19 09:40 Dose: Not Given Nebivolol (Bystolic -) 2.5 mg PO HS [facility] Last Admin: 09/24/19 22:02 Dose: 2.5 mg Nystatin (Nystop Powder -) 1 applic TP BID [facility] Last Admin: 09/25/19 09:39 Dose: 1 applic Ondansetron HCl (Zofran Injection) 4 mg IVPUSH Q6H PRN PRN Reason: NAUSEA AND/OR VOMITING Tamsulosin HCl (Flomax -) 0.4 mg PO BID@0830,2200 [facility] Last Admin: 09/25/19 07:52 Dose: Not Given - Objective Vital Signs: Vital Signs Temperature 97.5 F L 09/25/19 10:00 Pulse Rate 60 09/25/19 10:00 Respiratory Rate 18 09/25/19 10:00 Blood Pressure 117/53 L 09/25/19 10:00 O2 Sat by Pulse Oximetry (%) 100 09/25/19 09:00 Constitutional: Yes: Calm Eyes: Yes: Conjunctiva Clear HENT: Yes: Atraumatic Neck: Yes: Supple Cardiovascular: Yes: S1, S2 Respiratory: Yes: CTA Bilaterally Gastrointestinal: Yes: Soft Genitourinary: Yes: Strong Present, Other (on cbi) Musculoskeletal: Yes: WNL Edema: LLE: Trace, RLE: Trace Neurological: Yes: Oriented Labs: CBC, BMP 09/25/19 06:10 09/25/19 06:10 INR, PTT INR 1.42 (0.83-1.09) H 09/14/19 06:38 Problem List - Problems (1) KIKI (acute kidney injury) Code(s): N17.9 - ACUTE KIDNEY FAILURE, UNSPECIFIED (2) DKA (diabetic ketoacidoses) Code(s): E11.10 - TYPE 2 DIABETES MELLITUS WITH KETOACIDOSIS WITHOUT COMA Qualifiers: Diabetes mellitus type: type 2 Diabetes mellitus complication detail: without coma Qualified Code(s): E11.10 - Type 2 diabetes mellitus with ketoacidosis without coma (3) Acute renal failure Code(s): N17.9 - ACUTE KIDNEY FAILURE, UNSPECIFIED (4) Hypernatremia Code(s): E87.0 - HYPEROSMOLALITY AND HYPERNATREMIA Assessment/Plan Current Medications Generic Name Dose Route Start Last Admin Trade Name Freq PRN Reason Stop Dose Admin Acetaminophen 650 mg 09/04/19 10:34 09/22/19 13:29 Tylenol - PO 650 mg Q4H PRN Administration FEVER Atorvastatin Calcium 40 mg 09/02/19 22:00 09/24/19 22:03 Lipitor - PO 40 mg HS [facility] Administration Donepezil HCl 10 mg 09/11/19 10:00 09/25/19 09:39 Aricept - PO 10 mg DAILY [facility] Administration Ezetimibe 10 mg 09/02/19 22:00 09/24/19 22:02 Zetia - PO 10 mg HS [facility] Administration Escitalopram Oxalate 10 mg 09/11/19 10:00 09/25/19 09:39 Lexapro - PO 10 mg DAILY [facility] Administration Ferrous Sulfate 325 mg 09/15/19 17:30 09/25/19 07:52 Feosol - PO Not Given BIDWM [facility] Finasteride 5 mg 09/11/19 10:00 09/25/19 09:39 Proscar - PO 5 mg DAILY [facility] Administration Insulin Aspart 1 vial 09/19/19 07:03 09/25/19 11:37 Novolog Vial Sliding Scale - SQ 4 units ACHS [facility] Administration Protocol Insulin Aspart 2 units 09/23/19 07:48 09/25/19 11:37 Novolog Vial SQ 2 units ACLD [facility] Administration Insulin Detemir 26 units 09/25/19 10:00 09/25/19 09:40 Levemir Vial SQ Not Given AM [facility] Nebivolol 2.5 mg 09/02/19 22:00 09/24/19 22:02 Bystolic - PO 2.5 mg HS [facility] Administration Nystatin 1 applic 09/05/19 11:30 09/25/19 09:39 Nystop Powder - TP 1 applic BID [facility] Administration Ondansetron HCl 4 mg 09/13/19 17:01 Zofran Injection IVPUSH Q6H PRN NAUSEA AND/OR VOMITING Tamsulosin HCl 0.4 mg 09/11/19 08:45 09/25/19 07:52 Flomax - PO Not Given BID@0830,2200 [facility] Impression 1. KIKI 2. DKA 3. hypernatremia 4. DM 5. dementia 6. cad 7. hyperkalemia 8. hematuria Plan - clamp CBI and check for hematuria - will need urology follow up - restart cbi if he developed hematuria - repeat labs in am - diabetic diet
--- NOTE | 2019-09-25 21:05 | PN ---
Progress Note (short form) - Note Progress Note: HPI: Pt remains on CBI. No hypoglycemia overnight. Otherwise HPI limited PE: Gen: NAD, awake, alert HEENT: NC/AT, ANTONIO, MMM Neck: No JVD LUNG: CTA bilaterally, however poor inspiratory effort, On RA CARD: RRR no murmurs appreciated ABD: Soft, Nt/ND, normoactive BS: : Strong catheter in place CBI ongoing EXT: No edema appreciated, cap refill <2sec Skin: No rashes or lesions noted CBC, BMP 09/25/19 06:10 09/25/19 06:10 Hepatic Panel Total Bilirubin 0.6 mg/dL (0.2-1) 09/25/19 06:10 AST 17 U/L (15-37) 09/25/19 06:10 ALT 24 U/L (13-61) 09/25/19 06:10 Alkaline Phosphatase 130 U/L (45-117) H 09/25/19 06:10 Albumin 2.5 g/dl (3.4-5.0) L 09/25/19 06:10 Microbiology 09/01/19 23:00 Blood - Peripheral Venous Blood Culture - Final NO GROWTH AFTER 5 DAYS INCUBATION 09/01/19 23:00 Blood - Peripheral Venous Blood Culture - Final NO GROWTH AFTER 5 DAYS INCUBATION 09/01/19 21:16 Urine - Urine Strong Urine Culture - Final Strep Agalactiae Group B Mr S Aureus Staphylococcus Coagulase Neg Active Medications Acetaminophen (Tylenol -) 650 mg PO Q4H PRN PRN Reason: FEVER Last Admin: 09/22/19 13:29 Dose: 650 mg Atorvastatin Calcium (Lipitor -) 40 mg PO HS [facility] Last Admin: 09/24/19 22:03 Dose: 40 mg Donepezil HCl (Aricept -) 10 mg PO DAILY [facility] Last Admin: 09/24/19 10:06 Dose: Not Given Ezetimibe (Zetia -) 10 mg PO HS [facility] Last Admin: 09/24/19 22:02 Dose: 10 mg Escitalopram Oxalate (Lexapro -) 10 mg PO DAILY [facility] Last Admin: 09/24/19 10:06 Dose: Not Given Ferrous Sulfate (Feosol -) 325 mg PO BIDWM [facility] Last Admin: 09/24/19 16:40 Dose: Not Given Finasteride (Proscar -) 5 mg PO DAILY [facility] Last Admin: 09/24/19 10:06 Dose: Not Given Insulin Aspart (Novolog Vial Sliding Scale -) 1 vial SQ ACHS [facility]; Protocol Last Admin: 09/24/19 22:08 Dose: 6 units Insulin Aspart (Novolog Vial) 2 units SQ ACLD [facility] Last Admin: 09/24/19 16:24 Dose: 2 units Insulin Detemir (Levemir Vial) 28 units SQ AM [facility] Last Admin: 09/24/19 07:18 Dose: Not Given Nebivolol (Bystolic -) 2.5 mg PO HS [facility] Last Admin: 09/24/19 22:02 Dose: 2.5 mg Nystatin (Nystop Powder -) 1 applic TP BID [facility] Last Admin: 09/24/19 23:16 Dose: 1 applic Ondansetron HCl (Zofran Injection) 4 mg IVPUSH Q6H PRN PRN Reason: NAUSEA AND/OR VOMITING Tamsulosin HCl (Flomax -) 0.4 mg PO BID@0830,2200 [facility] Last Admin: 09/24/19 22:03 Dose: 0.4 mg Assessment and Plan: DKA (resolved) Hypernatremia (resolved) Acute kidney injury (Resolved) Type 2 DM 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 Edwards and Dr. Edouard how even trial of LP or CHIEF [employer]ING [employer] shunting not viable for patient's NPH --Contnue Flomax 0.4mg BID PO --Continue Proscar 5mg qdaily --Lexapro 10mg and Aricept 10mg qdaily FEN: Fluids: PO encouragement PPX: DVT - scds Dispo: Continue monitoring; urology eval Case discussed with Dr. Joey Grubbs, DO - IM PGY-3 <Stevie Grubbs - Last Filed: 09/25/19 22:45> - Note Progress Note: I have seen and examined the indicated patient independently/along with the resident team. I have personally verified all patel exam findings and historical components. I have personally interpreted all diagnostics indicated per todays orders and reviewed interpretation of indicated subspecialty services. This patient meets a high level of medical complexity and warrants indicated LOC to avoid decompensation and worsening of the indicated illness. S: Agree with historical findings as outlined in resident documentation regarding history of present illness. No further events communicated to myself from overnight. No callback and no response from resident team regarding callback. Unfortunately course regarding overall plan for hematuria remains unknown. Son remains extraordinarily hesitant to bring patient home without definitive plan for resoluteion of hematuria. Discussed with nursing; will need to discuss with administration regarding overall plan given protracted course of admit and ongoing issue. He has no clots today and no s/s obstruction. 10 system ROS Unreliable Medication list reviewed; as documented per orders and above. O: All vital signs reviewed per ER records and are as per EMR NAD, AAOx1 but limited communciation as ESL with underlying organic dementia, Resting in bed NC AT EOMI PERRLA Neck supple, trachea midline, no nani LN RRR s1/2 Lungs CTAB, w/ sym expansion NT ND +BS No skin breakdown or rashes noted CN2-12 wnl, no new focal deficits noted Muscle tone normal, no deficits in motor function or strength noted Normal mood, appropriate behavior, average insight EKG: CXR: Other Imaging: Prior Diagnostics: Seen and examined; agree with resident note aside from as supplemented below by myself. Independently reviewed all labs, vitals, and diagnostics. In addition I verified all patel historic and PE findings. Unchanged; no issues overnight. Hematuria recurred despite plans for DC. He will likely be kept inpatient though the weekend pending further urologic intervention. Spoke with resident team at length regarding need to determine with urology definitive meaures. We are holding AC with SCDs for DVT ppx ( plavix can be held given acute significant bleed and no recent stents). Will continue to monitor and redirect. No issues with agitation as Zyprexa has continued to have a positive effect. Overall will monitor inpatient for the weekend and discuss DC with consulting providers. 1) DKA 2/2 issues with managing insulin pump, resolved-DC on SQ insulin 2) Uncontrolled DM -Continually adjusting insulin. Complete control has proven difficult with this patient but is preferable to the ongoing issue with pump. No further input from endo noted. Avoiding hypoglycemia but has intermittent spikes of hyper. Will need endocrine followup post DC. 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 Can discuss therapeutic tap as needed but per neuro and neurosurgery with extensive discussion as documented last week this likely should be done OP. Will continue to monitor. Informed son of this developent as his mentation was a barrier to initial DC planning to facility 4) Acute Cystitis with Hematuria vs. Nani Hematuria- Abx per ID; continue to monitor. Ongoing trauma 2/2 underlying dementia vs. infectious origin. 5) Urinary Obstruction - Continue tamsulosin and finasteride. 6) KIKI on CKD-III, improved - Improved to resolve, underlying CKD likely secondary to diabetes mellitus being so uncontrolled. We will continue to monitor. He should follow-up with his tread booker upon discharge. 7) Hx CAD s/p CABG 8) Underlying Dementia (documented as Alzheimer's Type) 9) Hx D-CHF 10) Lactic Acidosis, resolved 11) Hypernatremia, resolved 12) Hx HTN 13) Hx HLD 14) Hx COPD, no acute exacerbation ) Ongoing hematuria remains barrier to DC. Pending final urology recs. Discussed case at length with rn field case manager Merly Correa who agrees that inpateint care is warranted given the ongoing hematuria. It had resolution briefly last week then severe recurrance that prompted the CBI per uro. Initial DC held due to facility reluctance for acceptance due to ongoing cognitive impairment secondary to organic dementia/NPH that per Dr. Palacio and Dr. Edouard may be worked up as an outpatient. His initial reason for admission was due to DKA secondary to noncompliance with insulin pump exacerbated likely by his and his 's underlying cognitive issues and poor diet. He was transitioned to SQ insulin with good effect and no further DKA or profound hypoglycemia but his glucose remains difficult to control. Initially this was noted to be due to ongoing high sugar foods being given by family but now noted to be ongoing but to a lesser degree. Tapering insulin. Seen once by chel here and will be referred to their services for continued outpatient workup; they agreed with discontinuing the pump. Providing extensive teaching to family regarding home care as insurance will not approve facility despite multiple conversations and attempts as documented by myself and CM and SW earlier in the chart. Continuing CBI until definitive plan per uro. Monitoring glucose and CBC carefully. <Hernesto Cook - Last Filed: 09/26/19 22:52>
[2019-09-25] MEDS ORDERED: INSULIN (NOVOLOG) ASPART 100 UNITS/ML 10ML VIAL ONE (21:07)
[2019-09-25] MEDS: ATORVASTATIN CA 40 MG TABLET (FP) PO SCH (22:49)
[2019-09-25] MEDS: EZETIMIBE 10 MG TABLET (FP) PO SCH (22:49)
[2019-09-25] MEDS: NEBIVOLOL 2.5 MG TABLET (FP) PO SCH (22:49)
[2019-09-26] MEDS: INSULIN (LEVEMIR) 100 UNITS/ML UNITS SQ SCH (06:20)
[2019-09-26] MEDS: INSULIN SLIDING SCALE (NOVOLOG) 1 VIAL SQ SCH ×4 (06:21→22:14)
[2019-09-26 07:21] LABS: BASO % 1.2 % (0-2.0); EOS % 6.8 % (0-4.5); HEMATOCRIT 31.5 % (35.4-49); HEMOGLOBIN 10.2 GM/dL (11.7-16.9); LYMPH % 24.1 % (8-40); MCH 28.5 pg (25.7-33.7); MCHC 32.2 g/dl (32.0-35.9); MEAN CELL VOLUME 88.4 fl (80-96); MEAN PLT VOLUME 7.9 fl (7.5-11.1); MONO % 9.9 % (3.8-10.2); PLATELET COUNT 200 K/MM3 (134-434); RBC 3.57 M/mm3 (4.00-5.60); RDW 15.3 % (11.9-15.9); WHITE BLOOD COUNT 7.3 K/mm3 (4.0-10.0)
[2019-09-26 07:37] LABS: BLOOD UREA NITROGEN 16.8 mg/dL (7-18); CALCIUM 8.6 mg/dL (8.5-10.1); POTASSIUM 4.6 mmol/L (3.5-5.1)
--- NOTE | 2019-09-26 08:33 | PN ---
Progress Note (short form) - Note Progress Note: HPI: Pt remains on CBI. No hypoglycemia overnight. Otherwise HPI limited Vital Signs Temperature 97.5 F L 09/26/19 06:10 Pulse Rate 59 L 09/26/19 06:10 Respiratory Rate 18 09/26/19 06:10 Blood Pressure 136/63 09/26/19 06:10 O2 Sat by Pulse Oximetry (%) 100 09/25/19 21:00 PE: Gen: NAD, awake, alert HEENT: NC/AT, ANTONIO, MMM Neck: No JVD LUNG: CTA bilaterally, however poor inspiratory effort, On RA CARD: RRR no murmurs appreciated ABD: Soft, Nt/ND, normoactive BS: : Strong catheter in place CBI ongoing EXT: No edema appreciated, cap refill <2sec Skin: No rashes or lesions noted CBC, BMP 09/26/19 06:18 09/26/19 06:18 Microbiology 09/01/19 23:00 Blood - Peripheral Venous Blood Culture - Final NO GROWTH AFTER 5 DAYS INCUBATION 09/01/19 23:00 Blood - Peripheral Venous Blood Culture - Final NO GROWTH AFTER 5 DAYS INCUBATION 09/01/19 21:16 Urine - Urine Strong Urine Culture - Final Strep Agalactiae Group B Mr S Aureus Staphylococcus Coagulase Neg Active Medications Acetaminophen (Tylenol -) 650 mg PO Q4H PRN PRN Reason: FEVER Last Admin: 09/22/19 13:29 Dose: 650 mg Atorvastatin Calcium (Lipitor -) 40 mg PO HS [facility] Last Admin: 09/25/19 22:49 Dose: 40 mg Donepezil HCl (Aricept -) 10 mg PO DAILY [facility] Last Admin: 09/25/19 09:39 Dose: 10 mg Ezetimibe (Zetia -) 10 mg PO HS [facility] Last Admin: 09/25/19 22:49 Dose: 10 mg Escitalopram Oxalate (Lexapro -) 10 mg PO DAILY [facility] Last Admin: 09/25/19 09:39 Dose: 10 mg Ferrous Sulfate (Feosol -) 325 mg PO BIDWM [facility] Last Admin: 09/25/19 16:41 Dose: 325 mg Finasteride (Proscar -) 5 mg PO DAILY [facility] Last Admin: 09/25/19 09:39 Dose: 5 mg Insulin Aspart (Novolog Vial Sliding Scale -) 1 vial SQ ACHS [facility]; Protocol Last Admin: 09/26/19 06:21 Dose: 4 units Insulin Aspart (Novolog Vial) 2 units SQ ACLD [facility] Last Admin: 09/25/19 16:41 Dose: 2 units Insulin Detemir (Levemir Vial) 26 units SQ AM [facility] Last Admin: 09/26/19 06:20 Dose: 26 units Nebivolol (Bystolic -) 2.5 mg PO HS [facility] Last Admin: 09/25/19 22:49 Dose: 2.5 mg Nystatin (Nystop Powder -) 1 applic TP BID [facility] Last Admin: 09/25/19 22:51 Dose: 1 applic Ondansetron HCl (Zofran Injection) 4 mg IVPUSH Q6H PRN PRN Reason: NAUSEA AND/OR VOMITING Tamsulosin HCl (Flomax -) 0.4 mg PO BID@0830,2200 [facility] Last Admin: 09/25/19 22:49 Dose: 0.4 mg Assessment and Plan: DKA (resolved) Hypernatremia (resolved) Acute kidney injury (Resolved) Type 2 DM 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 Edwards and Dr. Edouard how even trial of LP or BALLPOINT PENS ASSEMBLER shunting not viable for patient's NPH --Contnue Flomax 0.4mg BID PO --Continue Proscar 5mg qdaily --Lexapro 10mg and Aricept 10mg qdaily FEN: Fluids: PO encouragement PPX: DVT - scds Dispo: Continue monitoring; urology eval Case discussed with Dr. Joey Grubbs, DO - IM PGY-3 <Stevie Grubbs - Last Filed: 09/26/19 08:57> - Note Progress Note: Continues to pend urology consultation; disvcussed with case management, social work. No hypoglycemia, no worsening hematuria. Mentation stable and at baseline. Nontoxic appearing VS labs imaging reviewed I have seen and examined the indicated patient independently/along with the resident team. I have personally verified all patel exam findings and historical components. I have personally interpreted all diagnostics indicated per todays orders and reviewed interpretation of indicated subspecialty services. This patient meets a high level of medical complexity and warrants indicated LOC to avoid decompensation and worsening of the indicated illness. S: Agree with historical findings as outlined in resident documentation regarding history of present illness. No further events communicated to myself from overnight. No callback and no response from resident team regarding callback. Unfortunately course regarding overall plan for hematuria remains unknown. Son remains extraordinarily hesitant to bring patient home without definitive plan for resoluteion of hematuria. Discussed with nursing; will need to discuss with administration regarding overall plan given protracted course of admit and ongoing issue. He has no clots today and no s/s obstruction. 10 system ROS Unreliable Medication list reviewed; as documented per orders and above. O: All vital signs reviewed per ER records and are as per EMR NAD, AAOx1 but limited communciation as ESL with underlying organic dementia, Resting in bed NC AT EOMI PERRLA Neck supple, trachea midline, no nani LN RRR s1/2 Lungs CTAB, w/ sym expansion NT ND +BS No skin breakdown or rashes noted CN2-12 wnl, no new focal deficits noted Muscle tone normal, no deficits in motor function or strength noted Normal mood, appropriate behavior, average insight EKG: CXR: Other Imaging: Prior Diagnostics: Seen and examined; agree with resident note aside from as supplemented below by myself. Independently reviewed all labs, vitals, and diagnostics. In addition I verified all patel historic and PE findings. Unchanged; no issues overnight. Hematuria recurred despite plans for DC. He will likely be kept inpatient though the weekend pending further urologic intervention. Spoke with resident team at length regarding need to determine with urology definitive meaures. We are holding AC with SCDs for DVT ppx ( plavix can be held given acute significant bleed and no recent stents). Will continue to monitor and redirect. No issues with agitation as Zyprexa has continued to have a positive effect. Overall will monitor inpatient for the weekend and discuss DC with consulting providers. 1) DKA 2/2 issues with managing insulin pump, resolved-DC on SQ insulin 2) Uncontrolled DM -Continually adjusting insulin. Complete control has proven difficult with this patient but is preferable to the ongoing issue with pump. No further input from endo noted. Avoiding hypoglycemia but has intermittent spikes of hyper. Will need endocrine followup post DC. 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 Can discuss therapeutic tap as needed but per neuro and neurosurgery with extensive discussion as documented last week this likely should be done OP. Will continue to monitor. Informed son of this developent as his mentation was a barrier to initial DC planning to facility 4) Acute Cystitis with Hematuria vs. Nani Hematuria- Abx per ID; continue to monitor. Ongoing trauma 2/2 underlying dementia vs. infectious origin. 5) Urinary Obstruction - Continue tamsulosin and finasteride. 6) KIKI on CKD-III, improved - Improved to resolve, underlying CKD likely secondary to diabetes mellitus being so uncontrolled. We will continue to monitor. He should follow-up with his radar repairer upon discharge. 7) Hx CAD s/p CABG 8) Underlying Dementia (documented as Alzheimer's Type) 9) Hx D-CHF 10) Lactic Acidosis, resolved 11) Hypernatremia, resolved 12) Hx HTN 13) Hx HLD 14) Hx COPD, no acute exacerbation ) Ongoing hematuria remains barrier to DC. Pending final urology recs. Discussed case at length with case making machine operator Merly Correa who agrees that inpateint care is warranted given the ongoing hematuria. It had resolution briefly last week then severe recurrance that prompted the CBI per uro. Initial DC held due to facility reluctance for acceptance due to ongoing cognitive impairment secondary to organic dementia/NPH that per Dr. Palacio and Dr. Edouard may be worked up as an outpatient. His initial reason for admission was due to DKA secondary to noncompliance with insulin pump exacerbated likely by his and his 's underlying cognitive issues and poor diet. He was transitioned to SQ insulin with good effect and no further DKA or profound hypoglycemia but his glucose remains difficult to control. Initially this was noted to be due to ongoing high sugar foods being given by family but now noted to be ongoing but to a lesser degree. Tapering insulin. Seen once by chel here and will be referred to their services for continued outpatient workup; they agreed with discontinuing the pump. Providing extensive teaching to family regarding home care as insurance will not approve facility despite multiple conversations and attempts as documented by myself and CM and SW earlier in the chart. Continuing CBI until definitive plan per uro. Monitoring glucose and CBC carefully. <Hernesto Cook - Last Filed: 09/26/19 22:53>
[2019-09-26] MEDS: DONEPEZIL HCL 10 MG TABLET (FP) PO SCH (09:00)
--- NOTE | 2019-09-26 10:01 | PN ---
Progress Note, Physician History of Present Illness: stable had some hematuria on cbi - Current Medication List Current Medications: Active Medications Acetaminophen (Tylenol -) 650 mg PO Q4H PRN PRN Reason: FEVER Last Admin: 09/22/19 13:29 Dose: 650 mg Atorvastatin Calcium (Lipitor -) 40 mg PO HS [facility] Last Admin: 09/25/19 22:49 Dose: 40 mg Donepezil HCl (Aricept -) 10 mg PO DAILY [facility] Last Admin: 09/25/19 09:39 Dose: 10 mg Ezetimibe (Zetia -) 10 mg PO HS [facility] Last Admin: 09/25/19 22:49 Dose: 10 mg Escitalopram Oxalate (Lexapro -) 10 mg PO DAILY [facility] Last Admin: 09/25/19 09:39 Dose: 10 mg Ferrous Sulfate (Feosol -) 325 mg PO BIDWM [facility] Last Admin: 09/25/19 16:41 Dose: 325 mg Finasteride (Proscar -) 5 mg PO DAILY [facility] Last Admin: 09/25/19 09:39 Dose: 5 mg Insulin Aspart (Novolog Vial Sliding Scale -) 1 vial SQ ACHS [facility]; Protocol Last Admin: 09/26/19 06:21 Dose: 4 units Insulin Aspart (Novolog Vial) 2 units SQ ACLD [facility] Last Admin: 09/25/19 16:41 Dose: 2 units Insulin Detemir (Levemir Vial) 26 units SQ AM [facility] Last Admin: 09/26/19 06:20 Dose: 26 units Nebivolol (Bystolic -) 2.5 mg PO HS [facility] Last Admin: 09/25/19 22:49 Dose: 2.5 mg Nystatin (Nystop Powder -) 1 applic TP BID [facility] Last Admin: 09/25/19 22:51 Dose: 1 applic Ondansetron HCl (Zofran Injection) 4 mg IVPUSH Q6H PRN PRN Reason: NAUSEA AND/OR VOMITING Tamsulosin HCl (Flomax -) 0.4 mg PO BID@0830,2200 [facility] Last Admin: 09/25/19 22:49 Dose: 0.4 mg - Objective Vital Signs: Vital Signs Temperature 97.5 F L 09/26/19 06:10 Pulse Rate 59 L 09/26/19 06:10 Respiratory Rate 18 09/26/19 06:10 Blood Pressure 136/63 09/26/19 06:10 O2 Sat by Pulse Oximetry (%) 100 09/25/19 21:00 Constitutional: Yes: No Distress, Calm Cardiovascular: Yes: S1, S2 Respiratory: Yes: Regular, CTA Bilaterally Gastrointestinal: Yes: Normal Bowel Sounds, Soft Genitourinary: Yes: Strong Present, Hematuria Musculoskeletal: Yes: WNL Extremities: Yes: WNL Neurological: Yes: Alert, Other (blind) Labs: CBC, BMP 09/26/19 06:18 09/26/19 06:18 INR, PTT INR 1.42 (0.83-1.09) H 09/14/19 06:38 Assessment/Plan 79 year old man with a history of HTN, hyperlipidemia, CAD, MT, CABG, chronic diastolic heart failure, type 2 DM, stage 3 CKD, COPD, dementia who presented to the ED with altered mental status. 1. Acute metabolic encephalopathy 2. Acute kidney injury 3. Abdominal pain 4. UTI 5. Lactic acidosis 6. Hypernatremia 7. Hypophosphatemia 8. HTN 9. Hyperlipidemia 10. CAD, history of MT, CABG 11. Chronic diastolic heart failure 12. Stage 3 CKD 13. COPD 14. Alzheimer dementia plan continue current mgmt monitor as per urology nephro on case rest as per the team
[2019-09-26] MEDS: FERROUS SO4 325 MG TABLET (FP) PO SCH ×2 (10:25→18:06)
[2019-09-26] MEDS: TAMSULOSIN HCL 0.4 MG CAP PO SCH ×2 (10:25→22:13)
[2019-09-26] MEDS: ESCITALOPRAM OXALATE 10 MG TABLET (FP) PO SCH (10:25)
[2019-09-26] MEDS: FINASTERIDE 5 MG TABLET (FP) PO SCH (10:25)
[2019-09-26] MEDS: NYSTATIN POWDER 100,000 UNITS/GM - 15 GM TOPICAL POWDER TP SCH ×2 (10:28→22:14)
[2019-09-26] MEDS ORDERED: INSULIN (NOVOLOG) ASPART 100 UNITS/ML 10ML VIAL ONE ×3 (12:24→21:22)
[2019-09-26] MEDS: INSULIN (NOVOLOG) ASPART 100 UNITS/ML 10ML VIAL SQ SCH ×2 (12:27→18:06)
--- NOTE | 2019-09-26 13:50 | PN ---
Progress Note, Physician History of Present Illness: Pt seen and examined at bedside. No new events. - Current Medication List Current Medications: Active Medications Acetaminophen (Tylenol -) 650 mg PO Q4H PRN PRN Reason: FEVER Last Admin: 09/22/19 13:29 Dose: 650 mg Atorvastatin Calcium (Lipitor -) 40 mg PO HS [facility] Last Admin: 09/25/19 22:49 Dose: 40 mg Donepezil HCl (Aricept -) 10 mg PO DAILY [facility] Last Admin: 09/26/19 09:00 Dose: 10 mg Ezetimibe (Zetia -) 10 mg PO HS [facility] Last Admin: 09/25/19 22:49 Dose: 10 mg Escitalopram Oxalate (Lexapro -) 10 mg PO DAILY [facility] Last Admin: 09/26/19 10:25 Dose: 10 mg Ferrous Sulfate (Feosol -) 325 mg PO BIDWM [facility] Last Admin: 09/26/19 10:25 Dose: 325 mg Finasteride (Proscar -) 5 mg PO DAILY [facility] Last Admin: 09/26/19 10:25 Dose: 5 mg Insulin Aspart (Novolog Vial Sliding Scale -) 1 vial SQ ACHS [facility]; Protocol Last Admin: 09/26/19 12:22 Dose: 4 units Insulin Aspart (Novolog Vial) 2 units SQ ACLD [facility] Last Admin: 09/26/19 12:27 Dose: 2 units Insulin Detemir (Levemir Vial) 26 units SQ AM [facility] Last Admin: 09/26/19 06:20 Dose: 26 units Nebivolol (Bystolic -) 2.5 mg PO HS [facility] Last Admin: 09/25/19 22:49 Dose: 2.5 mg Nystatin (Nystop Powder -) 1 applic TP BID [facility] Last Admin: 09/26/19 10:28 Dose: 1 applic Ondansetron HCl (Zofran Injection) 4 mg IVPUSH Q6H PRN PRN Reason: NAUSEA AND/OR VOMITING Tamsulosin HCl (Flomax -) 0.4 mg PO BID@0830,2200 [facility] Last Admin: 09/26/19 10:25 Dose: 0.4 mg - Objective Vital Signs: Vital Signs Temperature 98 F 09/26/19 10:00 Pulse Rate 59 L 09/26/19 06:10 Respiratory Rate 18 09/26/19 10:00 Blood Pressure 145/72 09/26/19 10:00 O2 Sat by Pulse Oximetry (%) 100 09/26/19 09:00 Constitutional: Yes: Calm HENT: Yes: Atraumatic Cardiovascular: Yes: S1, S2 Respiratory: Yes: CTA Bilaterally Gastrointestinal: Yes: Soft Genitourinary: Yes: Strong Present, Other (cbi) Musculoskeletal: Yes: WNL Edema: No Integumentary: Yes: WNL Neurological: Yes: Confusion Labs: CBC, BMP 09/26/19 06:18 09/26/19 06:18 INR, PTT INR 1.42 (0.83-1.09) H 09/14/19 06:38 Problem List - Problems (1) KIKI (acute kidney injury) Code(s): N17.9 - ACUTE KIDNEY FAILURE, UNSPECIFIED (2) DKA (diabetic ketoacidoses) Code(s): E11.10 - TYPE 2 DIABETES MELLITUS WITH KETOACIDOSIS WITHOUT COMA Qualifiers: Diabetes mellitus type: type 2 Diabetes mellitus complication detail: without coma Qualified Code(s): E11.10 - Type 2 diabetes mellitus with ketoacidosis without coma (3) Acute renal failure Code(s): N17.9 - ACUTE KIDNEY FAILURE, UNSPECIFIED (4) Hypernatremia Code(s): E87.0 - HYPEROSMOLALITY AND HYPERNATREMIA Assessment/Plan Current Medications Generic Name Dose Route Start Last Admin Trade Name Freq PRN Reason Stop Dose Admin Acetaminophen 650 mg 09/04/19 10:34 09/22/19 13:29 Tylenol - PO 650 mg Q4H PRN Administration FEVER Atorvastatin Calcium 40 mg 09/02/19 22:00 09/25/19 22:49 Lipitor - PO 40 mg HS [facility] Administration Donepezil HCl 10 mg 09/11/19 10:00 09/26/19 09:00 Aricept - PO 10 mg DAILY [facility] Administration Ezetimibe 10 mg 09/02/19 22:00 09/25/19 22:49 Zetia - PO 10 mg HS [facility] Administration Escitalopram Oxalate 10 mg 09/11/19 10:00 09/26/19 10:25 Lexapro - PO 10 mg DAILY [facility] Administration Ferrous Sulfate 325 mg 09/15/19 17:30 09/26/19 10:25 Feosol - PO 325 mg BIDWM [facility] Administration Finasteride 5 mg 09/11/19 10:00 09/26/19 10:25 Proscar - PO 5 mg DAILY [facility] Administration Insulin Aspart 1 vial 09/19/19 07:03 09/26/19 12:22 Novolog Vial Sliding Scale - SQ 4 units ACHS [facility] Administration Protocol Insulin Aspart 2 units 09/23/19 07:48 09/26/19 12:27 Novolog Vial SQ 2 units ACLD [facility] Administration Insulin Detemir 26 units 09/25/19 10:00 09/26/19 06:20 Levemir Vial SQ 26 units AM [facility] Administration Nebivolol 2.5 mg 09/02/19 22:00 09/25/19 22:49 Bystolic - PO 2.5 mg HS [facility] Administration Nystatin 1 applic 09/05/19 11:30 09/26/19 10:28 Nystop Powder - TP 1 applic BID [facility] Administration Ondansetron HCl 4 mg 09/13/19 17:01 Zofran Injection IVPUSH Q6H PRN NAUSEA AND/OR VOMITING Tamsulosin HCl 0.4 mg 09/11/19 08:45 09/26/19 10:25 Flomax - PO 0.4 mg BID@0830,2200 [facility] Administration Impression 1. KIKI 2. DKA 3. hypernatremia 4. DM 5. dementia 6. cad 7. hyperkalemia 8. hematuria Plan - pt developed hemturia when cbi clamped - call for urology follow up - renal function stable - monitor labs - will follow PRN
[2019-09-26] MEDS ORDERED: PT OWN MED DRAWER 7, Y5N ONE (17:38)
[2019-09-26] MEDS: EZETIMIBE 10 MG TABLET (FP) PO SCH (22:13)
[2019-09-26] MEDS: NEBIVOLOL 2.5 MG TABLET (FP) PO SCH (22:13)
[2019-09-26] MEDS: ATORVASTATIN CA 40 MG TABLET (FP) PO SCH (22:13)
[2019-09-27] MEDS: INSULIN (LEVEMIR) 100 UNITS/ML UNITS SQ SCH (06:20)
[2019-09-27] MEDS: INSULIN SLIDING SCALE (NOVOLOG) 1 VIAL SQ SCH ×4 (06:21→22:16)
[2019-09-27] MEDS ORDERED: PT OWN MED DRAWER 7, Y5N ONE ×3 (06:42→20:21)
[2019-09-27] MEDS ORDERED: INSULIN (LEVEMIR) 100 UNITS/ML UNITS SQ ONE (06:42)
--- NOTE | 2019-09-27 07:08 | PN ---
Progress Note (short form) - Note Progress Note: HPI: Pt remains on CBI. No hypoglycemia overnight. Otherwise HPI limited PE: Gen: NAD, awake, alert HEENT: NC/AT, ANTONIO, MMM Neck: No JVD LUNG: CTA bilaterally, however poor inspiratory effort, On RA CARD: RRR no murmurs appreciated ABD: Soft, Nt/ND, normoactive BS: : Strong catheter in place CBI ongoing EXT: No edema appreciated, cap refill <2sec Skin: No rashes or lesions noted CBC, BMP 09/27/19 06:04 09/27/19 06:04 Microbiology 09/01/19 23:00 Blood - Peripheral Venous Blood Culture - Final NO GROWTH AFTER 5 DAYS INCUBATION 09/01/19 23:00 Blood - Peripheral Venous Blood Culture - Final NO GROWTH AFTER 5 DAYS INCUBATION 09/01/19 21:16 Urine - Urine Strong Urine Culture - Final Strep Agalactiae Group B Mr S Aureus Staphylococcus Coagulase Neg Active Medications Acetaminophen (Tylenol -) 650 mg PO Q4H PRN PRN Reason: FEVER Last Admin: 09/22/19 13:29 Dose: 650 mg Atorvastatin Calcium (Lipitor -) 40 mg PO HS [facility] Last Admin: 09/26/19 22:13 Dose: 40 mg Donepezil HCl (Aricept -) 10 mg PO DAILY [facility] Last Admin: 09/27/19 09:10 Dose: 10 mg Ezetimibe (Zetia -) 10 mg PO HS [facility] Last Admin: 09/26/19 22:13 Dose: 10 mg Escitalopram Oxalate (Lexapro -) 10 mg PO DAILY [facility] Last Admin: 09/27/19 09:10 Dose: 10 mg Ferrous Sulfate (Feosol -) 325 mg PO BIDWM [facility] Last Admin: 09/27/19 16:45 Dose: 325 mg Finasteride (Proscar -) 5 mg PO DAILY [facility] Last Admin: 09/27/19 09:10 Dose: 5 mg Insulin Aspart (Novolog Vial Sliding Scale -) 1 vial SQ ACHS [facility]; Protocol Last Admin: 09/27/19 16:45 Dose: 8 units Insulin Aspart (Novolog Vial) 2 units SQ ACLD [facility] Last Admin: 09/27/19 16:44 Dose: 2 units Insulin Detemir (Levemir Vial) 26 units SQ AM [facility] Last Admin: 09/27/19 06:20 Dose: 26 units Nebivolol (Bystolic -) 2.5 mg PO HS [facility] Last Admin: 09/26/19 22:13 Dose: 2.5 mg Nystatin (Nystop Powder -) 1 applic TP BID [facility] Last Admin: 09/27/19 09:10 Dose: 1 applic Ondansetron HCl (Zofran Injection) 4 mg IVPUSH Q6H PRN PRN Reason: NAUSEA AND/OR VOMITING Tamsulosin HCl (Flomax -) 0.4 mg PO BID@0830,2200 [facility] Last Admin: 09/27/19 07:48 Dose: 0.4 mg Assessment and Plan: Hematuria DKA (resolved) Hypernatremia (resolved) Acute kidney injury (Resolved) Type 2 DM 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 Edwards and Dr. Edouard how even trial of LP or MANAGER [employer] ESTATE shunting not viable for patient's NPH --Contnue Flomax 0.4mg BID PO --Continue Proscar 5mg qdaily --Lexapro 10mg and Aricept 10mg qdaily FEN: Fluids: PO encouragement Electrolyte abnormalities: None Nutrition: Return to recommended diet PPX: DVT - scds Dispo: Continue monitoring Case discussed with Dr. Joey Grubbs, DO - IM PGY-3 <Stevie Grubbs - Last Filed: 09/27/19 19:36> - Note Progress Note: I have seen and examined the indicated patient independently/along with the resident team. I have personally verified all patel exam findings and historical components. I have personally interpreted all diagnostics indicated per todays orders and reviewed interpretation of indicated subspecialty services. This patient meets a high level of medical complexity and warrants indicated LOC to avoid decompensation and worsening of the indicated illness. S: CBI clamped per uro with planned cysto monday system ROS Unreliable Medication list reviewed; as documented per orders and above. O: All vital signs reviewed and are as per EMR NAD, AAOx1 but limited communication as ESL with underlying organic dementia, Resting in bed NC AT EOMI PERRLA Neck supple, trachea midline, no nani LN RRR s1/2 Lungs CTAB, w/ sym expansion NT ND +BS No skin breakdown or rashes noted CN2-12 wnl, no new focal deficits noted Muscle tone normal, no deficits in motor function or strength noted Normal mood, appropriate behavior, below average insight A/P 1) DKA 2/2 issues with managing insulin pump, resolved-DC on SQ insulin 2) Uncontrolled DM -Continually adjusting insulin. Complete control has proven difficult with this patient but is preferable to the ongoing issue with pump. No further input from endo noted. Avoiding hypoglycemia but has intermittent spikes of hyper. Will need endocrine followup post DC. 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 Can discuss therapeutic tap as needed but per neuro and neurosurgery with extensive discussion as documented last week this likely should be done OP. Will continue to monitor. Informed son of this developent as his mentation was a barrier to initial DC planning to facility 4) Acute Cystitis with Hematuria vs. Nani Hematuria- Abx per ID; continue to monitor. Ongoing trauma 2/2 underlying dementia vs. infectious origin. 5) Urinary Obstruction - Continue tamsulosin and finasteride. 6) KIKI on CKD-III, improved - Improved to resolve, underlying CKD likely secondary to diabetes mellitus being so uncontrolled. We will continue to monitor. 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 7) Hx CAD s/p CABG 8) Underlying Dementia (documented as Alzheimer's Type) 9) Hx D-CHF 10) Lactic Acidosis, resolved 11) Hypernatremia, resolved 12) Hx HTN 13) Hx HLD 14) Hx COPD, no acute exacerbation 15) Ongoing Hematura-h/h stable, pending cysto on monday. Discussed case at length with case packer and sealer Merly Correa who agrees that inpateint care is warranted given the ongoing hematuria. It had resolution briefly last week then severe recurrance that prompted the CBI per uro. Initial DC held due to facility reluctance for acceptance due to ongoing cognitive impairment secondary to organic dementia/NPH that per Dr. Palacio and Dr. Edouard may be worked up as an outpatient. His initial reason for admission was due to DKA secondary to noncompliance with insulin pump exacerbated likely by his and his 's underlying cognitive issues and poor diet. He was transitioned to SQ insulin with good effect and no further DKA or profound hypoglycemia but his glucose remains difficult to control. Initially this was noted to be due to ongoing high sugar foods being given by family but now noted to be ongoing but to a lesser degree. Tapering insulin. Seen once by chel here and will be referred to their services for continued outpatient workup; they agreed with discontinuing the pump. Providing extensive teaching to family regarding home care as insurance will not approve facility despite multiple conversations and attempts as documented by myself and BERTRAND and IGLESIA earlier in the chart. <Hernesto Cook - Last Filed: 09/29/19 08:28>
[2019-09-27] MEDS: TAMSULOSIN HCL 0.4 MG CAP PO SCH ×2 (07:48→22:09)
[2019-09-27] MEDS: FERROUS SO4 325 MG TABLET (FP) PO SCH ×2 (07:48→16:45)
[2019-09-27 07:54] LABS: HEMATOCRIT 29.3 % (35.4-49); HEMOGLOBIN 9.7 GM/dL (11.7-16.9); MCH 29.2 pg (25.7-33.7); MEAN CELL VOLUME 88.4 fl (80-96); MEAN PLT VOLUME 8.1 fl (7.5-11.1); PLATELET COUNT 183 K/MM3 (134-434); RBC 3.32 M/mm3 (4.00-5.60); RDW 15.2 % (11.9-15.9); WHITE BLOOD COUNT 7.4 K/mm3 (4.0-10.0)
[2019-09-27 08:29] LABS: BLOOD UREA NITROGEN 21.7 mg/dL (7-18); CALCIUM 8.5 mg/dL (8.5-10.1); CREATININE 1.2 mg/dL (0.55-1.3)
[2019-09-27] MEDS: NYSTATIN POWDER 100,000 UNITS/GM - 15 GM TOPICAL POWDER TP SCH ×2 (09:10→22:10)
[2019-09-27] MEDS: FINASTERIDE 5 MG TABLET (FP) PO SCH (09:10)
[2019-09-27] MEDS: ESCITALOPRAM OXALATE 10 MG TABLET (FP) PO SCH (09:10)
[2019-09-27] MEDS: DONEPEZIL HCL 10 MG TABLET (FP) PO SCH (09:10)
--- NOTE | 2019-09-27 10:44 | PN ---
Progress Note, Physician History of Present Illness: stable urine clear in the room - Current Medication List Current Medications: Active Medications Acetaminophen (Tylenol -) 650 mg PO Q4H PRN PRN Reason: FEVER Last Admin: 09/22/19 13:29 Dose: 650 mg Atorvastatin Calcium (Lipitor -) 40 mg PO HS [facility] Last Admin: 09/26/19 22:13 Dose: 40 mg Donepezil HCl (Aricept -) 10 mg PO DAILY [facility] Last Admin: 09/27/19 09:10 Dose: 10 mg Ezetimibe (Zetia -) 10 mg PO HS [facility] Last Admin: 09/26/19 22:13 Dose: 10 mg Escitalopram Oxalate (Lexapro -) 10 mg PO DAILY [facility] Last Admin: 09/27/19 09:10 Dose: 10 mg Ferrous Sulfate (Feosol -) 325 mg PO BIDWM [facility] Last Admin: 09/27/19 07:48 Dose: 325 mg Finasteride (Proscar -) 5 mg PO DAILY [facility] Last Admin: 09/27/19 09:10 Dose: 5 mg Insulin Aspart (Novolog Vial Sliding Scale -) 1 vial SQ ACHS [facility]; Protocol Last Admin: 09/27/19 06:21 Dose: 6 units Insulin Aspart (Novolog Vial) 2 units SQ ACLD [facility] Last Admin: 09/26/19 18:06 Dose: 2 units Insulin Detemir (Levemir Vial) 26 units SQ AM [facility] Last Admin: 09/27/19 06:20 Dose: 26 units Nebivolol (Bystolic -) 2.5 mg PO HS [facility] Last Admin: 09/26/19 22:13 Dose: 2.5 mg Nystatin (Nystop Powder -) 1 applic TP BID [facility] Last Admin: 09/27/19 09:10 Dose: 1 applic Ondansetron HCl (Zofran Injection) 4 mg IVPUSH Q6H PRN PRN Reason: NAUSEA AND/OR VOMITING Tamsulosin HCl (Flomax -) 0.4 mg PO BID@0830,2200 [facility] Last Admin: 09/27/19 07:48 Dose: 0.4 mg - Objective Vital Signs: Vital Signs Temperature 97.7 F 09/27/19 06:08 Pulse Rate 64 09/27/19 06:08 Respiratory Rate 20 09/27/19 06:08 Blood Pressure 145/62 09/27/19 06:08 O2 Sat by Pulse Oximetry (%) 100 09/26/19 21:00 Constitutional: Yes: No Distress, Calm Cardiovascular: Yes: S1, S2 Respiratory: Yes: Regular, CTA Bilaterally Gastrointestinal: Yes: Normal Bowel Sounds, Soft Genitourinary: Yes: Strong Present, Other (cbi) Musculoskeletal: Yes: WNL Extremities: Yes: WNL Neurological: Yes: Alert, Other Psychiatric: Yes: Other Labs: CBC, BMP 09/27/19 06:04 09/27/19 06:04 INR, PTT INR 1.42 (0.83-1.09) H 09/14/19 06:38 Assessment/Plan 79 year old man with a history of HTN, hyperlipidemia, CAD, RI, CABG, chronic diastolic heart failure, type 2 DM, stage 3 CKD, COPD, dementia who presented to the ED with altered mental status. 1. Acute metabolic encephalopathy 2. Acute kidney injury 3. Abdominal pain 4. UTI 5. Lactic acidosis 6. Hypernatremia 7. Hypophosphatemia 8. HTN 9. Hyperlipidemia 10. CAD, history of RI, CABG 11. Chronic diastolic heart failure 12. Stage 3 CKD 13. COPD 14. Alzheimer dementia plan continue current mgmt monitor as per urology nephro on case rest as per the team
[2019-09-27] MEDS: INSULIN (NOVOLOG) ASPART 100 UNITS/ML 10ML VIAL SQ SCH ×2 (11:28→16:44)
--- NOTE | 2019-09-27 13:04 | PN ---
Progress Note (short form) - Note Progress Note: UROLOGY NOTE. pt. with h/o gross hematuria,cbi was d/c this am ,urine is clear, abd. is soft,n/t, bs++ h/h=9.7/29.3, inr=1.42, wbc=7.4 plan-will d/c arguello in am.
[2019-09-27] MEDS: ATORVASTATIN CA 40 MG TABLET (FP) PO SCH (22:10)
[2019-09-27] MEDS: NEBIVOLOL 2.5 MG TABLET (FP) PO SCH (22:10)
[2019-09-27] MEDS: EZETIMIBE 10 MG TABLET (FP) PO SCH (22:11)
[2019-09-28] MEDS: INSULIN (LEVEMIR) 100 UNITS/ML UNITS SQ SCH (06:33)
[2019-09-28] MEDS: INSULIN SLIDING SCALE (NOVOLOG) 1 VIAL SQ SCH ×4 (06:34→22:32)
[2019-09-28 07:09] LABS: HEMATOCRIT 28.9 % (35.4-49); HEMOGLOBIN 9.6 GM/dL (11.7-16.9); MCH 29.3 pg (25.7-33.7); MCHC 33.3 g/dl (32.0-35.9); MEAN CELL VOLUME 87.8 fl (80-96); MEAN PLT VOLUME 7.9 fl (7.5-11.1); PLATELET COUNT 171 K/MM3 (134-434); RBC 3.29 M/mm3 (4.00-5.60); RDW 15.6 % (11.9-15.9); WHITE BLOOD COUNT 7.2 K/mm3 (4.0-10.0)
[2019-09-28 07:16] LABS: BLOOD UREA NITROGEN 19.6 mg/dL (7-18); CALCIUM 8.6 mg/dL (8.5-10.1); POTASSIUM 4.5 mmol/L (3.5-5.1)
[2019-09-28] MEDS: TAMSULOSIN HCL 0.4 MG CAP PO SCH ×2 (08:05→22:15)
[2019-09-28] MEDS: FERROUS SO4 325 MG TABLET (FP) PO SCH ×2 (08:05→16:38)
[2019-09-28] MEDS: NYSTATIN POWDER 100,000 UNITS/GM - 15 GM TOPICAL POWDER TP SCH ×2 (09:32→22:15)
[2019-09-28] MEDS: FINASTERIDE 5 MG TABLET (FP) PO SCH (09:32)
[2019-09-28] MEDS: ESCITALOPRAM OXALATE 10 MG TABLET (FP) PO SCH (09:32)
[2019-09-28] MEDS: DONEPEZIL HCL 10 MG TABLET (FP) PO SCH (09:32)
--- NOTE | 2019-09-28 10:37 | PN ---
Physical Exam: SUBJECTIVE: Patient seen and examined; no new complaints. Planning cysto for monday. Instructed to keep CBI clamped even with hematuria. No labs tomorrow; check INR/CBC/BMP monday with type and cross. 10 sys ROS done and less reliable given underlying mentation but stable OBJECTIVE: Vital Signs Period Temp Pulse Resp BP Sys/Poole Pulse Ox Last 24 Hr 97.5 F-99.0 F 54-76 20-20 116-154/52-78 96-99 All vital signs reviewed and are as per EMR NAD, AAOx1 but limited communciation as ESL with underlying organic dementia, Resting in bed NC AT EOMI PERRLA Neck supple, trachea midline, no nani LN RRR s1/2 Lungs CTAB, w/ sym expansion Strong inserted with CBI clamped NT ND +BS No skin breakdown or rashes noted CN2-12 wnl, no new focal deficits noted Muscle tone normal, no deficits in motor function or strength noted Normal mood, appropriate behavior, below average insight secondary to clinical condition Laboratory Results - last 24 hr 09/27/19 09/27/19 09/28/19 11:12 22:13 06:20 WBC 7.2 RBC 3.29 L Hgb 9.6 L Hct 28.9 L MCV 87.8 MCH 29.3 MCHC 33.3 RDW 15.6 Plt Count 171 MPV 7.9 Sodium Potassium Chloride Carbon Dioxide Anion Gap BUN Creatinine Est GFR (CKD-EPI)AfAm Est GFR (CKD-EPI)NonAf POC Glucometer 277 83 Random Glucose Calcium 09/28/19 09/28/19 06:20 06:30 WBC RBC Hgb Hct MCV MCH MCHC RDW Plt Count MPV Sodium 139 Potassium 4.5 Chloride 106 Carbon Dioxide 29 Anion Gap 4 L BUN 19.6 H Creatinine 1.0 Est GFR (CKD-EPI)AfAm 82.60 Est GFR (CKD-EPI)NonAf 71.27 POC Glucometer 148 Random Glucose 158 H Calcium 8.6 Active Medications Generic Name Dose Route Start Last Admin Trade Name Freq PRN Reason Stop Dose Admin Acetaminophen 650 mg 09/04/19 10:34 09/22/19 13:29 Tylenol - PO 650 mg Q4H PRN Administration FEVER Atorvastatin Calcium 40 mg 09/02/19 22:00 09/27/19 22:10 Lipitor - PO 40 mg HS DAISHA Administration Donepezil HCl 10 mg 09/11/19 10:00 09/28/19 09:32 Aricept - PO 10 mg DAILY DA[facility] Administration Ezetimibe 10 mg 09/02/19 22:00 09/27/19 22:11 Zetia - PO 10 mg HS DAISHA Administration Escitalopram Oxalate 10 mg 09/11/19 10:00 09/28/19 09:32 Lexapro - PO 10 mg DAILY DAISHA Administration Ferrous Sulfate 325 mg 09/15/19 17:30 09/28/19 08:05 Feosol - PO 325 mg BIDWM DAISHA Administration Finasteride 5 mg 09/11/19 10:00 09/28/19 09:32 Proscar - PO 5 mg DAILY [facility] Administration Insulin Aspart 1 vial 09/19/19 07:03 09/28/19 06:34 Novolog Vial Sliding Scale - SQ Not Given ACHS [facility] Protocol Insulin Aspart 2 units 09/23/19 07:48 09/27/19 16:44 Novolog Vial SQ 2 units ACLD [facility]IS[facility] Administration Insulin Detemir 26 units 09/25/19 10:00 09/28/19 06:33 Levemir Vial SQ 26 units AM [facility] Administration Nebivolol 2.5 mg 09/02/19 22:00 09/27/19 22:10 Bystolic - PO 2.5 mg HS [facility] Administration Nystatin 1 applic 09/05/19 11:30 09/28/19 09:32 Nystop Powder - TP 1 applic BID [facility] Administration Ondansetron HCl 4 mg 09/13/19 17:01 Zofran Injection IVPUSH Q6H PRN NAUSEA AND/OR VOMITING Tamsulosin HCl 0.4 mg 09/11/19 08:45 09/28/19 08:05 Flomax - PO 0.4 mg BID@0830,2200 [facility] Administration ASSESSMENT/PLAN: Patient presented initially for DKA (secondary to underlying social issueds with his dementia and his 's dementia leading to issues with insulin pump operation, seen by Dr. Lynch and taken off pump) complicated by UTI and obstructive uropathy secondary to clots with recurring hematuria. Pending repeat cysto on monday with urology team. Protracted admission due to recurring hematuria, complex discharge planning, etc. He is overall improved and his mentation is stable. No medication changes. Continue monitoring glucose, etc. Problem list and plan remain unchanged today due to him staying inpatient in anticipation of this procedure. Will be discharged home with home health services following procedure pending urological clearance. He will need close followup with uro, PCP, and endo at [place]. Despite our best efforts he was not able to be placed and this was discussed extensively with his son Dago. Visit type - Emergency Visit Emergency Visit: Yes ED Registration Date: 09/01/19 Care time: The patient presented to the Emergency Department on the above date and was hospitalized for further evaluation of their emergent condition. - New Patient This patient is new to me today: No - Critical Care Critical Care patient: No
[2019-09-28] MEDS: INSULIN (NOVOLOG) ASPART 100 UNITS/ML 10ML VIAL SQ SCH ×2 (11:49→16:38)
--- NOTE | 2019-09-28 12:25 | PN ---
Progress Note, Physician History of Present Illness: no new issues plan to remove foleys today - Current Medication List Current Medications: Active Medications Acetaminophen (Tylenol -) 650 mg PO Q4H PRN PRN Reason: FEVER Last Admin: 09/22/19 13:29 Dose: 650 mg Atorvastatin Calcium (Lipitor -) 40 mg PO HS [facility] Last Admin: 09/27/19 22:10 Dose: 40 mg Donepezil HCl (Aricept -) 10 mg PO DAILY [facility] Last Admin: 09/28/19 09:32 Dose: 10 mg Ezetimibe (Zetia -) 10 mg PO HS [facility] Last Admin: 09/27/19 22:11 Dose: 10 mg Escitalopram Oxalate (Lexapro -) 10 mg PO DAILY [facility] Last Admin: 09/28/19 09:32 Dose: 10 mg Ferrous Sulfate (Feosol -) 325 mg PO BIDWM [facility] Last Admin: 09/28/19 08:05 Dose: 325 mg Finasteride (Proscar -) 5 mg PO DAILY [facility] Last Admin: 09/28/19 09:32 Dose: 5 mg Insulin Aspart (Novolog Vial Sliding Scale -) 1 vial SQ ACHS [facility]; Protocol Last Admin: 09/28/19 11:49 Dose: 4 units Insulin Aspart (Novolog Vial) 2 units SQ ACLD [facility] Last Admin: 09/28/19 11:49 Dose: 2 units Insulin Detemir (Levemir Vial) 26 units SQ AM [facility] Last Admin: 09/28/19 06:33 Dose: 26 units Nebivolol (Bystolic -) 2.5 mg PO [facility] Last Admin: 09/27/19 22:10 Dose: 2.5 mg Nystatin (Nystop Powder -) 1 applic TP BID [facility] Last Admin: 09/28/19 09:32 Dose: 1 applic Ondansetron HCl (Zofran Injection) 4 mg IVPUSH Q6H PRN PRN Reason: NAUSEA AND/OR VOMITING Tamsulosin HCl (Flomax -) 0.4 mg PO BID@0830,2200 [facility] Last Admin: 09/28/19 08:05 Dose: 0.4 mg - Objective Vital Signs: Vital Signs Temperature 98.8 F 09/28/19 10:00 Pulse Rate 76 09/28/19 10:00 Respiratory Rate 20 09/28/19 10:00 Blood Pressure 139/78 09/28/19 10:00 O2 Sat by Pulse Oximetry (%) 96 09/28/19 09:00 Constitutional: Yes: No Distress, Calm Cardiovascular: Yes: S1, S2 Respiratory: Yes: Regular, CTA Bilaterally Gastrointestinal: Yes: Normal Bowel Sounds, Soft Genitourinary: Yes: Strong Present Musculoskeletal: Yes: WNL Extremities: Yes: WNL Neurological: Yes: Alert, Oriented Psychiatric: Yes: Alert, Oriented Labs: CBC, BMP 09/28/19 06:20 09/28/19 06:20 INR, PTT INR 1.42 (0.83-1.09) H 09/14/19 06:38 Assessment/Plan 79 year old man with a history of HTN, hyperlipidemia, CAD, [place], CABG, chronic diastolic heart failure, type 2 DM, stage 3 CKD, COPD, dementia who presented to the ED with altered mental status. 1. Acute metabolic encephalopathy 2. Acute kidney injury 3. Abdominal pain 4. UTI 5. Lactic acidosis 6. Hypernatremia 7. Hypophosphatemia 8. HTN 9. Hyperlipidemia 10. CAD, history of [place], CABG 11. Chronic diastolic heart failure 12. Stage 3 CKD 13. COPD 14. Alzheimer dementia plan continue current mgmt monitor for hematuria patient stable
[2019-09-28] MEDS: ATORVASTATIN CA 40 MG TABLET (FP) PO SCH (22:15)
[2019-09-28] MEDS: NEBIVOLOL 2.5 MG TABLET (FP) PO SCH (22:15)
[2019-09-28] MEDS: EZETIMIBE 10 MG TABLET (FP) PO SCH (22:15)
[2019-09-28] MEDS: ALBUTEROL SO4 2.5/IPRATROPIUM 0.5 INH SOL 3 ML VIAL.NEB. NEB PRN (23:01)
[2019-09-29] MEDS: INSULIN (LEVEMIR) 100 UNITS/ML UNITS SQ SCH (06:05)
[2019-09-29] MEDS: INSULIN SLIDING SCALE (NOVOLOG) 1 VIAL SQ SCH ×4 (06:06→21:28)
[2019-09-29] MEDS: TAMSULOSIN HCL 0.4 MG CAP PO SCH ×2 (08:53→21:26)
[2019-09-29] MEDS: FERROUS SO4 325 MG TABLET (FP) PO SCH ×2 (08:53→17:10)
[2019-09-29] MEDS: NYSTATIN POWDER 100,000 UNITS/GM - 15 GM TOPICAL POWDER TP SCH ×2 (08:59→21:27)
[2019-09-29] MEDS: FINASTERIDE 5 MG TABLET (FP) PO SCH (08:59)
[2019-09-29] MEDS: DONEPEZIL HCL 10 MG TABLET (FP) PO SCH (08:59)
[2019-09-29] MEDS: ESCITALOPRAM OXALATE 10 MG TABLET (FP) PO SCH (08:59)
--- NOTE | 2019-09-29 10:38 | PN ---
Progress Note, Physician History of Present Illness: stable no hematuria foleys still present - Current Medication List Current Medications: Active Medications Acetaminophen (Tylenol -) 650 mg PO Q4H PRN PRN Reason: FEVER Last Admin: 09/22/19 13:29 Dose: 650 mg Albuterol/Ipratropium (Duoneb -) 1 amp NEB Q6H PRN PRN Reason: SHORTNESS OF BREATH Last Admin: 09/28/19 23:01 Dose: 1 amp Atorvastatin Calcium (Lipitor -) 40 mg PO HS [facility] Last Admin: 09/28/19 22:15 Dose: 40 mg Donepezil HCl (Aricept -) 10 mg PO DAILY [facility] Last Admin: 09/29/19 08:59 Dose: 10 mg Ezetimibe (Zetia -) 10 mg PO HS [facility] Last Admin: 09/28/19 22:15 Dose: 10 mg Escitalopram Oxalate (Lexapro -) 10 mg PO DAILY [facility] Last Admin: 09/29/19 08:59 Dose: 10 mg Ferrous Sulfate (Feosol -) 325 mg PO BIDWM [facility] Last Admin: 09/29/19 08:53 Dose: 325 mg Finasteride (Proscar -) 5 mg PO DAILY [facility] Last Admin: 09/29/19 08:59 Dose: 5 mg Insulin Aspart (Novolog Vial Sliding Scale -) 1 vial SQ ACHS [facility]; Protocol Last Admin: 09/29/19 06:06 Dose: 8 units Insulin Aspart (Novolog Vial) 2 units SQ ACLD [facility] Last Admin: 09/28/19 16:38 Dose: 2 units Insulin Detemir (Levemir Vial) 26 units SQ AM [facility] Last Admin: 09/29/19 06:05 Dose: 26 units Nebivolol (Bystolic -) 2.5 mg PO HS [facility] Last Admin: 09/28/19 22:15 Dose: 2.5 mg Nystatin (Nystop Powder -) 1 applic TP BID [facility] Last Admin: 09/29/19 08:59 Dose: 1 applic Ondansetron HCl (Zofran Injection) 4 mg IVPUSH Q6H PRN PRN Reason: NAUSEA AND/OR VOMITING Tamsulosin HCl (Flomax -) 0.4 mg PO BID@0830,2200 [facility] Last Admin: 09/29/19 08:53 Dose: 0.4 mg - Objective Vital Signs: Vital Signs Temperature 98.9 F 09/29/19 08:57 Pulse Rate 60 09/29/19 08:57 Respiratory Rate 18 09/29/19 09:00 Blood Pressure 151/72 09/29/19 08:57 O2 Sat by Pulse Oximetry (%) 100 09/29/19 09:00 Constitutional: Yes: No Distress, Calm Cardiovascular: Yes: S1, S2 Respiratory: Yes: Regular, CTA Bilaterally Gastrointestinal: Yes: Normal Bowel Sounds, Soft Genitourinary: Yes: Strong Present Musculoskeletal: Yes: WNL Extremities: Yes: WNL Neurological: Yes: Alert, Other Labs: CBC, BMP 09/28/19 06:20 09/28/19 06:20 INR, PTT INR 1.42 (0.83-1.09) H 09/14/19 06:38 Assessment/Plan 79 year old man with a history of HTN, hyperlipidemia, CAD, CT, CABG, chronic diastolic heart failure, type 2 DM, stage 3 CKD, COPD, dementia who presented to the ED with altered mental status. 1. Acute metabolic encephalopathy 2. Acute kidney injury 3. Abdominal pain 4. UTI 5. Lactic acidosis 6. Hypernatremia 7. Hypophosphatemia 8. HTN 9. Hyperlipidemia 10. CAD, history of CT, CABG 11. Chronic diastolic heart failure 12. Stage 3 CKD 13. COPD 14. Alzheimer dementia plan continue current mgmt monitor for hematuria patient stable
[2019-09-29] MEDS: INSULIN (NOVOLOG) ASPART 100 UNITS/ML 10ML VIAL SQ SCH ×2 (11:36→17:12)
--- NOTE | 2019-09-29 14:53 | PN ---
Progress Note, Physician Chief Complaint: doing well, no acute distress, appears comfortable, - Current Medication List Current Medications: Active Medications Acetaminophen (Tylenol -) 650 mg PO Q4H PRN PRN Reason: FEVER Last Admin: 09/22/19 13:29 Dose: 650 mg Albuterol/Ipratropium (Duoneb -) 1 amp NEB Q6H PRN PRN Reason: SHORTNESS OF BREATH Last Admin: 09/28/19 23:01 Dose: 1 amp Atorvastatin Calcium (Lipitor -) 40 mg PO HS [facility] Last Admin: 09/28/19 22:15 Dose: 40 mg Donepezil HCl (Aricept -) 10 mg PO DAILY [facility] Last Admin: 09/29/19 08:59 Dose: 10 mg Ezetimibe (Zetia -) 10 mg PO HS [facility] Last Admin: 09/28/19 22:15 Dose: 10 mg Escitalopram Oxalate (Lexapro -) 10 mg PO DAILY [facility] Last Admin: 09/29/19 08:59 Dose: 10 mg Ferrous Sulfate (Feosol -) 325 mg PO BIDWM [facility] Last Admin: 09/29/19 08:53 Dose: 325 mg Finasteride (Proscar -) 5 mg PO DAILY [facility] Last Admin: 09/29/19 08:59 Dose: 5 mg Insulin Aspart (Novolog Vial Sliding Scale -) 1 vial SQ ACHS [facility]; Protocol Last Admin: 09/29/19 11:37 Dose: 4 units Insulin Aspart (Novolog Vial) 2 units SQ ACLD [facility] Last Admin: 09/29/19 11:36 Dose: 2 units Insulin Detemir (Levemir Vial) 26 units SQ AM [facility] Last Admin: 09/29/19 06:05 Dose: 26 units Nebivolol (Bystolic -) 2.5 mg PO HS [facility] Last Admin: 09/28/19 22:15 Dose: 2.5 mg Nystatin (Nystop Powder -) 1 applic TP BID [facility] Last Admin: 09/29/19 08:59 Dose: 1 applic Ondansetron HCl (Zofran Injection) 4 mg IVPUSH Q6H PRN PRN Reason: NAUSEA AND/OR VOMITING Tamsulosin HCl (Flomax -) 0.4 mg PO BID@0830,2200 [facility] Last Admin: 09/29/19 08:53 Dose: 0.4 mg - Objective Vital Signs: Vital Signs Temperature 98.9 F 09/29/19 08:57 Pulse Rate 60 09/29/19 08:57 Respiratory Rate 18 09/29/19 09:00 Blood Pressure 151/72 09/29/19 08:57 O2 Sat by Pulse Oximetry (%) 100 09/29/19 09:00 Labs: CBC, BMP 09/28/19 06:20 09/28/19 06:20 INR, PTT INR 1.42 (0.83-1.09) H 09/14/19 06:38 Impression/Plan Impression/Plan: ASSESSMENT/PLAN: Patient presented initially for DKA (secondary to underlying social issueds with his dementia and his 's dementia leading to issues with insulin pump operation, seen by Dr. Lynch and taken off pump) complicated by UTI and obstructive uropathy secondary to clots with recurring hematuria. Pending repeat cysto on monday with urology team. Protracted admission due to recurring hematuria, complex discharge planning, etc. He is overall improved and his mentation is stable. No medication changes. DM, Continue monitoring glucose, et Will be discharged home with home health services following procedure pending urological clearance. He will need close followup with uro, PCP, and endo at [place]. Visit type - Emergency Visit Emergency Visit: No - New Patient This patient is new to me today: Yes Date on this admission: 09/29/19 - Critical Care Critical Care patient: No - Discharge Referral Referred to [facility] Med P.C.: No
[2019-09-29] MEDS: ALBUTEROL SO4 2.5/IPRATROPIUM 0.5 INH SOL 3 ML VIAL.NEB. NEB PRN (15:50)
[2019-09-29] MEDS ORDERED: PT OWN MED DRAWER 7, Y5N ONE (19:58)
[2019-09-29] MEDS: ATORVASTATIN CA 40 MG TABLET (FP) PO SCH (21:26)
[2019-09-29] MEDS: EZETIMIBE 10 MG TABLET (FP) PO SCH (21:27)
[2019-09-29] MEDS: NEBIVOLOL 2.5 MG TABLET (FP) PO SCH (21:55)
[2019-09-30] MEDS: INSULIN SLIDING SCALE (NOVOLOG) 1 VIAL SQ SCH ×4 (06:01→21:38)
[2019-09-30] MEDS: ALBUTEROL SO4 2.5/IPRATROPIUM 0.5 INH SOL 3 ML VIAL.NEB. NEB PRN (07:03)
[2019-09-30 07:19] LABS: BASO % 0.9 % (0-2.0); HEMATOCRIT 33.2 % (35.4-49); HEMOGLOBIN 10.8 GM/dL (11.7-16.9); LYMPH % 21.1 % (8-40); MCH 28.9 pg (25.7-33.7); MCHC 32.6 g/dl (32.0-35.9); MEAN CELL VOLUME 88.7 fl (80-96); MEAN PLT VOLUME 8.4 fl (7.5-11.1); MONO % 10.5 % (3.8-10.2); NEUT % 61.5 % (42.8-82.8); PLATELET COUNT 155 K/MM3 (134-434); RBC 3.75 M/mm3 (4.00-5.60); RDW 15.5 % (11.9-15.9); WHITE BLOOD COUNT 8.1 K/mm3 (4.0-10.0)
[2019-09-30 07:58] LABS: ALBUMIN 2.7 g/dl (3.4-5.0); BILIRUBIN,TOTAL 0.5 mg/dL (0.2-1); BLOOD UREA NITROGEN 18.1 mg/dL (7-18); CALCIUM 8.7 mg/dL (8.5-10.1); CREATININE 0.9 mg/dL (0.55-1.3); POTASSIUM 4.6 mmol/L (3.5-5.1); TOT PROT 6.5 g/dl (6.4-8.2)
[2019-09-30] MEDS: INSULIN (LEVEMIR) 100 UNITS/ML UNITS SQ SCH (09:51)
[2019-09-30] MEDS: ESCITALOPRAM OXALATE 10 MG TABLET (FP) PO SCH (09:51)
[2019-09-30] MEDS: FERROUS SO4 325 MG TABLET (FP) PO SCH ×2 (09:51→17:16)
[2019-09-30] MEDS: DONEPEZIL HCL 10 MG TABLET (FP) PO SCH (09:52)
[2019-09-30] MEDS: FINASTERIDE 5 MG TABLET (FP) PO SCH (09:52)
[2019-09-30] MEDS: NYSTATIN POWDER 100,000 UNITS/GM - 15 GM TOPICAL POWDER TP SCH ×2 (09:52→21:25)
[2019-09-30] MEDS: TAMSULOSIN HCL 0.4 MG CAP PO SCH ×2 (09:52→21:24)
--- NOTE | 2019-09-30 10:15 | PN ---
Teaching Attending Note Name of Resident: Stevie Grubbs ATTENDING PHYSICIAN STATEMENT I saw and evaluated the patient. I reviewed the resident's note and discussed the case with the resident. I agree with the resident's findings and plan as documented. SUBJECTIVE: Patient is comfortable lying in bed. He is confused. OBJECTIVE: Vital Signs Period Temp Pulse Resp BP Sys/Poole Pulse Ox Last 24 Hr 97.7 F-98.3 F 62-88 20-20 118-157/52-68 100 HEART: S1S2, RRR LUNGS: Clear ABDOMEN: Soft, non-distended, non-tender, normal BS EXTREMITIES: No edema Laboratory Results - last 24 hr 09/29/19 09/29/19 09/29/19 11:36 17:09 20:47 WBC RBC Hgb Hct MCV MCH MCHC RDW Plt Count MPV Absolute Neuts (auto) Neutrophils % Lymphocytes % Monocytes % Eosinophils % Basophils % Nucleated RBC % Sodium Potassium Chloride Carbon Dioxide Anion Gap BUN Creatinine Est GFR (CKD-EPI)AfAm Est GFR (CKD-EPI)NonAf POC Glucometer 170 165 181 Random Glucose Calcium Total Bilirubin AST ALT Alkaline Phosphatase Total Protein Albumin 09/30/19 09/30/19 09/30/19 05:23 06:32 06:32 WBC 8.1 RBC 3.75 L Hgb 10.8 L Hct 33.2 L MCV 88.7 MCH 28.9 MCHC 32.6 RDW 15.5 Plt Count 155 MPV 8.4 Absolute Neuts (auto) 5.0 Neutrophils % 61.5 Lymphocytes % 21.1 Monocytes % 10.5 H Eosinophils % 6.0 H Basophils % 0.9 Nucleated RBC % 0 Sodium 138 Potassium 4.6 Chloride 106 Carbon Dioxide 27 Anion Gap 5 L BUN 18.1 H Creatinine 0.9 Est GFR (CKD-EPI)AfAm 93.82 Est GFR (CKD-EPI)NonAf 80.95 POC Glucometer 110 Random Glucose 131 H Calcium 8.7 Total Bilirubin 0.5 AST 23 ALT 22 Alkaline Phosphatase 119 H Total Protein 6.5 Albumin 2.7 L Current Medications Generic Name Dose Route Start Last Admin Trade Name Freq PRN Reason Stop Dose Admin Acetaminophen 650 mg 09/04/19 10:34 09/22/19 13:29 Tylenol - PO 650 mg Q4H PRN Administration FEVER Albuterol/Ipratropium 1 amp 09/28/19 12:45 09/30/19 07:03 Duoneb - NEB 1 amp Q6H PRN Administration SHORTNESS OF BREATH Atorvastatin Calcium 40 mg 09/02/19 22:00 09/29/19 21:26 Lipitor - PO 40 mg HS DAISHA Administration Donepezil HCl 10 mg 09/11/19 10:00 09/29/19 08:59 Aricept - PO 10 mg DAILY DAISHA Administration Ezetimibe 10 mg 09/02/19 22:00 09/29/19 21:27 Zetia - PO 10 mg HS DAISHA Administration Escitalopram Oxalate 10 mg 09/11/19 10:00 09/29/19 08:59 Lexapro - PO 10 mg DAILY [facility] Administration Ferrous Sulfate 325 mg 09/15/19 17:30 09/29/19 17:10 Feosol - PO 325 mg BIDWM DAISHA Administration Finasteride 5 mg 09/11/19 10:00 09/29/19 08:59 Proscar - PO 5 mg DAILY [facility] Administration Insulin Aspart 1 vial 09/19/19 07:03 09/30/19 06:01 Novolog Vial Sliding Scale - SQ Not Given ACHS [facility] Protocol Insulin Aspart 2 units 09/23/19 07:48 09/29/19 17:12 Novolog Vial SQ 2 units ACLD DAISHA Administration Insulin Detemir 26 units 09/25/19 10:00 09/29/19 06:05 Levemir Vial SQ 26 units AM [facility] Administration Nebivolol 2.5 mg 09/02/19 22:00 09/29/19 21:55 Bystolic - PO 2.5 mg HS DAISHA Administration Nystatin 1 applic 09/05/19 11:30 09/29/19 21:27 Nystop Powder - TP 1 applic BID [facility]ISHA Administration Ondansetron HCl 4 mg 09/13/19 17:01 Zofran Injection IVPUSH Q6H PRN NAUSEA AND/OR VOMITING Tamsulosin HCl 0.4 mg 09/11/19 08:45 09/29/19 21:26 Flomax - PO 0.4 mg BID@0830,2200 DAISHA Administration ASSESSMENT AND PLAN: This is a 79 year old man with a history of HTN, hyperlipidemia, CAD, [place], CABG, chronic diastolic heart failure, type 2 DM, stage 3 CKD, COPD, dementia who presented to the ED with altered mental status. 1. BPH with obstruction, gross hematuria - s/p evacuation of clots, TURP, TUVP on 09/13 - CBI discontinued and urine has remained clear - Strong removed this morning for voiding trial and so far patient has not voided - Continue Flomax, Proscar - Monitor urine output - might need to re-insert Strong 2. Acute metabolic encephalopathy secondary to hyperosmolar hyperglycemic state - Resolved 3. Type 2 DM, uncontrolled - Control is better with Levemir, standing Novolog, Novolog sliding scale 4. Acute kidney injury - Resolved 5. Hypernatremia - Resolved 6. Hypophosphatemia - Resolved 7. Lactic acidosis - Resolved 8. HTN - Continue Bystolic 9. Hyperlipidemia - Continue Lipitor, Zetia 10. CAD, history of [place], CABG - Continue Bystolic, Lipitor, Zetia 11. Chronic diastolic heart failure - Stable 12. Stage 3 CKD - Stable 13. 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 UTI - Treated with Doxycycline, Levaquin
--- NOTE | 2019-09-30 10:44 | PN ---
Progress Note, Physician - Current Medication List Current Medications: Active Medications Acetaminophen (Tylenol -) 650 mg PO Q4H PRN PRN Reason: FEVER Last Admin: 09/22/19 13:29 Dose: 650 mg Albuterol/Ipratropium (Duoneb -) 1 amp NEB Q6H PRN PRN Reason: SHORTNESS OF BREATH Last Admin: 09/30/19 07:03 Dose: 1 amp Atorvastatin Calcium (Lipitor -) 40 mg PO HS [facility] Last Admin: 09/29/19 21:26 Dose: 40 mg Donepezil HCl (Aricept -) 10 mg PO DAILY [facility] Last Admin: 09/30/19 09:52 Dose: 10 mg Ezetimibe (Zetia -) 10 mg PO HS [facility] Last Admin: 09/29/19 21:27 Dose: 10 mg Escitalopram Oxalate (Lexapro -) 10 mg PO DAILY [facility] Last Admin: 09/30/19 09:51 Dose: 10 mg Ferrous Sulfate (Feosol -) 325 mg PO BIDWM [facility] Last Admin: 09/30/19 09:51 Dose: 325 mg Finasteride (Proscar -) 5 mg PO DAILY [facility] Last Admin: 09/30/19 09:52 Dose: 5 mg Insulin Aspart (Novolog Vial Sliding Scale -) 1 vial SQ ACHS [facility]; Protocol Last Admin: 09/30/19 06:01 Dose: Not Given Insulin Aspart (Novolog Vial) 2 units SQ ACLD [facility] Last Admin: 09/29/19 17:12 Dose: 2 units Insulin Detemir (Levemir Vial) 26 units SQ AM [facility] Last Admin: 09/30/19 09:51 Dose: 26 units Nebivolol (Bystolic -) 2.5 mg PO HS [facility] Last Admin: 09/29/19 21:55 Dose: 2.5 mg Nystatin (Nystop Powder -) 1 applic TP BID [facility] Last Admin: 09/30/19 09:52 Dose: 1 applic Ondansetron HCl (Zofran Injection) 4 mg IVPUSH Q6H PRN PRN Reason: NAUSEA AND/OR VOMITING Tamsulosin HCl (Flomax -) 0.4 mg PO BID@0830,2200 [facility] Last Admin: 09/30/19 09:52 Dose: 0.4 mg - Objective Vital Signs: Vital Signs Temperature 97.8 F 09/30/19 05:57 Pulse Rate 73 09/30/19 05:57 Respiratory Rate 20 09/30/19 05:57 Blood Pressure 157/60 09/30/19 05:57 O2 Sat by Pulse Oximetry (%) 100 09/29/19 21:00 Labs: CBC, BMP 09/30/19 06:32 09/30/19 06:32 INR, PTT INR 1.42 (0.83-1.09) H 09/14/19 06:38
[2019-09-30] MEDS ORDERED: INSULIN (NOVOLOG) ASPART 100 UNITS/ML 10ML VIAL ONE (11:59)
[2019-09-30] MEDS: INSULIN (NOVOLOG) ASPART 100 UNITS/ML 10ML VIAL SQ SCH ×2 (12:18→17:16)
--- NOTE | 2019-09-30 15:45 | PN ---
Progress Note, Physician History of Present Illness: Pt seen and examined at bedside. He did not tolerated the voiding trial. - Current Medication List Current Medications: Active Medications Acetaminophen (Tylenol -) 650 mg PO Q4H PRN PRN Reason: FEVER Last Admin: 09/22/19 13:29 Dose: 650 mg Albuterol/Ipratropium (Duoneb -) 1 amp NEB Q6H PRN PRN Reason: SHORTNESS OF BREATH Last Admin: 09/30/19 07:03 Dose: 1 amp Atorvastatin Calcium (Lipitor -) 40 mg PO HS [facility] Last Admin: 09/29/19 21:26 Dose: 40 mg Donepezil HCl (Aricept -) 10 mg PO DAILY [facility] Last Admin: 09/30/19 09:52 Dose: 10 mg Ezetimibe (Zetia -) 10 mg PO HS [facility] Last Admin: 09/29/19 21:27 Dose: 10 mg Escitalopram Oxalate (Lexapro -) 10 mg PO DAILY [facility] Last Admin: 09/30/19 09:51 Dose: 10 mg Ferrous Sulfate (Feosol -) 325 mg PO BIDWM [facility] Last Admin: 09/30/19 09:51 Dose: 325 mg Finasteride (Proscar -) 5 mg PO DAILY [facility] Last Admin: 09/30/19 09:52 Dose: 5 mg Insulin Aspart (Novolog Vial Sliding Scale -) 1 vial SQ ACHS [facility]; Protocol Last Admin: 09/30/19 12:17 Dose: 8 units Insulin Aspart (Novolog Vial) 2 units SQ ACLD [facility] Last Admin: 09/30/19 12:18 Dose: 2 units Insulin Detemir (Levemir Vial) 26 units SQ AM [facility] Last Admin: 09/30/19 09:51 Dose: 26 units Nebivolol (Bystolic -) 2.5 mg PO HS [facility] Last Admin: 09/29/19 21:55 Dose: 2.5 mg Nystatin (Nystop Powder -) 1 applic TP BID [facility] Last Admin: 09/30/19 09:52 Dose: 1 applic Ondansetron HCl (Zofran Injection) 4 mg IVPUSH Q6H PRN PRN Reason: NAUSEA AND/OR VOMITING Tamsulosin HCl (Flomax -) 0.4 mg PO BID@0830,2200 [facility] Last Admin: 09/30/19 09:52 Dose: 0.4 mg - Objective Vital Signs: Vital Signs Temperature 97.9 F 09/30/19 15:21 Pulse Rate 68 09/30/19 15:21 Respiratory Rate 20 09/30/19 15:21 Blood Pressure 133/51 L 09/30/19 15:21 O2 Sat by Pulse Oximetry (%) 100 09/30/19 09:00 Constitutional: Yes: Calm HENT: Yes: Atraumatic Neck: Yes: Supple Cardiovascular: Yes: S1, S2 Respiratory: Yes: CTA Bilaterally Gastrointestinal: Yes: Soft, Abdomen, Obese Genitourinary: Yes: Other (arguello removed however he did not void in 8 hours) Musculoskeletal: Yes: Muscle Weakness Edema: No Neurological: Yes: Confusion Labs: CBC, BMP 09/30/19 06:32 09/30/19 06:32 INR, PTT INR 1.42 (0.83-1.09) H 09/14/19 06:38 Problem List - Problems (1) KIKI (acute kidney injury) Code(s): N17.9 - ACUTE KIDNEY FAILURE, UNSPECIFIED (2) DKA (diabetic ketoacidoses) Code(s): E11.10 - TYPE 2 DIABETES MELLITUS WITH KETOACIDOSIS WITHOUT COMA Qualifiers: Diabetes mellitus type: type 2 Diabetes mellitus complication detail: without coma Qualified Code(s): E11.10 - Type 2 diabetes mellitus with ketoacidosis without coma (3) Acute renal failure Code(s): N17.9 - ACUTE KIDNEY FAILURE, UNSPECIFIED (4) Hypernatremia Code(s): E87.0 - HYPEROSMOLALITY AND HYPERNATREMIA Assessment/Plan Current Medications Generic Name Dose Route Start Last Admin Trade Name Freq PRN Reason Stop Dose Admin Acetaminophen 650 mg 09/04/19 10:34 09/22/19 13:29 Tylenol - PO 650 mg Q4H PRN Administration FEVER Albuterol/Ipratropium 1 amp 09/28/19 12:45 09/30/19 07:03 Duoneb - NEB 1 amp Q6H PRN Administration SHORTNESS OF BREATH Atorvastatin Calcium 40 mg 09/02/19 22:00 09/29/19 21:26 Lipitor - PO 40 mg HS [facility] Administration Donepezil HCl 10 mg 09/11/19 10:00 09/30/19 09:52 Aricept - PO 10 mg DAILY [facility] Administration Ezetimibe 10 mg 10/07/19 22:00 09/29/19 21:27 Zetia - PO 10 mg HS [facility] Administration Escitalopram Oxalate 10 mg 09/11/19 10:00 09/30/19 09:51 Lexapro - PO 10 mg DAILY [facility] Administration Ferrous Sulfate 325 mg 09/15/19 17:30 09/30/19 09:51 Feosol - PO 325 mg BIDWM [facility] Administration Finasteride 5 mg 09/11/19 10:00 09/30/19 09:52 Proscar - PO 5 mg DAILY [facility] Administration Insulin Aspart 1 vial 09/19/19 07:03 09/30/19 12:17 Novolog Vial Sliding Scale - SQ 8 units ACHS [facility] Administration Protocol Insulin Aspart 2 units 09/23/19 07:48 09/30/19 12:18 Novolog Vial SQ 2 units ACLD [facility] Administration Insulin Detemir 26 units 09/25/19 10:00 09/30/19 09:51 Levemir Vial SQ 26 units AM [facility] Administration Nebivolol 2.5 mg 09/02/19 22:00 09/29/19 21:55 Bystolic - PO 2.5 mg HS [facility] Administration Nystatin 1 applic 09/05/19 11:30 09/30/19 09:52 Nystop Powder - TP 1 applic BID [facility] Administration Ondansetron HCl 4 mg 09/13/19 17:01 Zofran Injection IVPUSH Q6H PRN NAUSEA AND/OR VOMITING Tamsulosin HCl 0.4 mg 09/11/19 08:45 09/30/19 09:52 Flomax - PO 0.4 mg BID@0830,2200 [facility] Administration Impression 1. KIKI 2. DKA 3. hypernatremia 4. DM 5. dementia 6. cad 7. hyperkalemia 8. hematuria Plan - renal function is stable - urology follow up - pt getting arguello replaced for retention - monitor labs - will follow PRN
--- NOTE | 2019-09-30 18:50 | PN ---
Progress Note (short form) - Note Progress Note: HPI: Weekend events noted. Arguello discontinued at 6am today. HPI limited due to patient's severe NPH PE: Gen: NAD, awake, alert HEENT: NC/AT, ANTONIO, MMM Neck: No JVD LUNG: CTA bilaterally, no wheezes or rales noted CARD: RRR no murmurs appreciated ABD: Soft, Nt/ND, normoactive BS EXT: No edema appreciated, cap refill <2sec Skin: No rashes or lesions noted CBC, BMP 09/30/19 06:32 09/30/19 06:32 Microbiology 09/01/19 23:00 Blood - Peripheral Venous Blood Culture - Final NO GROWTH AFTER 5 DAYS INCUBATION 09/01/19 23:00 Blood - Peripheral Venous Blood Culture - Final NO GROWTH AFTER 5 DAYS INCUBATION 09/01/19 21:16 Urine - Urine Arguello Urine Culture - Final Strep Agalactiae Group B Mr S Aureus Staphylococcus Coagulase Neg Active Medications Acetaminophen (Tylenol -) 650 mg PO Q4H PRN PRN Reason: FEVER Last Admin: 09/22/19 13:29 Dose: 650 mg Albuterol/Ipratropium (Duoneb -) 1 amp NEB Q6H PRN PRN Reason: SHORTNESS OF BREATH Last Admin: 09/30/19 07:03 Dose: 1 amp Atorvastatin Calcium (Lipitor -) 40 mg PO HS [facility] Last Admin: 09/29/19 21:26 Dose: 40 mg Donepezil HCl (Aricept -) 10 mg PO DAILY [facility] Last Admin: 09/30/19 09:52 Dose: 10 mg Ezetimibe (Zetia -) 10 mg PO HS [facility] Last Admin: 09/29/19 21:27 Dose: 10 mg Escitalopram Oxalate (Lexapro -) 10 mg PO DAILY [facility] Last Admin: 09/30/19 09:51 Dose: 10 mg Ferrous Sulfate (Feosol -) 325 mg PO BIDWM [facility] Last Admin: 09/30/19 17:16 Dose: 325 mg Finasteride (Proscar -) 5 mg PO DAILY [facility] Last Admin: 09/30/19 09:52 Dose: 5 mg Insulin Aspart (Novolog Vial Sliding Scale -) 1 vial SQ ACHS [facility]; Protocol Last Admin: 09/30/19 17:16 Dose: Not Given Insulin Aspart (Novolog Vial) 2 units SQ ACLD [facility] Last Admin: 09/30/19 17:16 Dose: 2 units Insulin Detemir (Levemir Vial) 26 units SQ AM [facility] Last Admin: 09/30/19 09:51 Dose: 26 units Nebivolol (Bystolic -) 2.5 mg PO HS [facility] Last Admin: 09/29/19 21:55 Dose: 2.5 mg Nystatin (Nystop Powder -) 1 applic TP BID [facility] Last Admin: 09/30/19 09:52 Dose: 1 applic Ondansetron HCl (Zofran Injection) 4 mg IVPUSH Q6H PRN PRN Reason: NAUSEA AND/OR VOMITING Tamsulosin HCl (Flomax -) 0.4 mg PO BID@0830,2200 [facility] Last Admin: 09/30/19 09:52 Dose: 0.4 mg Assessment and Plan: Hematuria DKA (resolved) Hypernatremia (resolved) Acute kidney injury (Resolved) Type 2 DM 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 Edwards and Dr. 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 Yazmin Grubbs, DO - IM PGY-3
[2019-09-30] MEDS: BETHANECHOL CHLORIDE 25 MG TABLET PO SCH (21:24)
[2019-09-30] MEDS: ATORVASTATIN CA 40 MG TABLET (FP) PO SCH (21:25)
[2019-09-30] MEDS: NEBIVOLOL 2.5 MG TABLET (FP) PO SCH (21:25)
[2019-09-30] MEDS: EZETIMIBE 10 MG TABLET (FP) PO SCH (21:25)
[2019-10-01] MEDS: BETHANECHOL CHLORIDE 25 MG TABLET PO SCH ×3 (05:39→22:13)
[2019-10-01] MEDS: INSULIN SLIDING SCALE (NOVOLOG) 1 VIAL SQ SCH ×4 (06:13→22:12)
[2019-10-01] MEDS: INSULIN (LEVEMIR) 100 UNITS/ML UNITS SQ SCH (06:14)
[2019-10-01] MEDS ORDERED: INSULIN (LEVEMIR) 100 UNITS/ML UNITS SQ SCH (07:12)
[2019-10-01 07:35] LABS: HEMATOCRIT 31.1 % (35.4-49); HEMOGLOBIN 10.3 GM/dL (11.7-16.9); MEAN CELL VOLUME 87.8 fl (80-96); MEAN PLT VOLUME 8.4 fl (7.5-11.1); PLATELET COUNT 162 K/MM3 (134-434); RBC 3.54 M/mm3 (4.00-5.60); RDW 15.6 % (11.9-15.9); WHITE BLOOD COUNT 8.7 K/mm3 (4.0-10.0)
[2019-10-01 07:42] LABS: BLOOD UREA NITROGEN 17.1 mg/dL (7-18); CALCIUM 8.7 mg/dL (8.5-10.1); CREATININE 1.1 mg/dL (0.55-1.3); POTASSIUM 4.3 mmol/L (3.5-5.1)
[2019-10-01] MEDS: FINASTERIDE 5 MG TABLET (FP) PO SCH (11:02)
[2019-10-01] MEDS: FERROUS SO4 325 MG TABLET (FP) PO SCH ×2 (11:02→17:12)
[2019-10-01] MEDS: ESCITALOPRAM OXALATE 10 MG TABLET (FP) PO SCH (11:02)
[2019-10-01] MEDS: NYSTATIN POWDER 100,000 UNITS/GM - 15 GM TOPICAL POWDER TP SCH ×2 (11:02→22:12)
[2019-10-01] MEDS: TAMSULOSIN HCL 0.4 MG CAP PO SCH ×2 (11:02→22:11)
[2019-10-01] MEDS: DONEPEZIL HCL 10 MG TABLET (FP) PO SCH (11:02)
[2019-10-01] MEDS: ALBUTEROL SO4 2.5/IPRATROPIUM 0.5 INH SOL 3 ML VIAL.NEB. NEB PRN ×2 (11:06→21:06)
--- NOTE | 2019-10-01 11:44 | PN ---
Progress Note, Physician - Current Medication List Current Medications: Active Medications Acetaminophen (Tylenol -) 650 mg PO Q4H PRN PRN Reason: FEVER Last Admin: 09/22/19 13:29 Dose: 650 mg Albuterol/Ipratropium (Duoneb -) 1 amp NEB Q6H PRN PRN Reason: SHORTNESS OF BREATH Last Admin: 10/01/19 11:06 Dose: 1 amp Atorvastatin Calcium (Lipitor -) 40 mg PO HS [facility] Last Admin: 09/30/19 21:25 Dose: 40 mg Bethanechol Chloride (Urecholine -) 25 mg PO TID [facility] Last Admin: 10/01/19 05:39 Dose: 25 mg Donepezil HCl (Aricept -) 10 mg PO DAILY [facility] Last Admin: 10/01/19 11:02 Dose: 10 mg Ezetimibe (Zetia -) 10 mg PO HS [facility] Last Admin: 09/30/19 21:25 Dose: 10 mg Escitalopram Oxalate (Lexapro -) 10 mg PO DAILY [facility] Last Admin: 10/01/19 11:02 Dose: 10 mg Ferrous Sulfate (Feosol -) 325 mg PO BIDWM [facility] Last Admin: 10/01/19 11:02 Dose: 325 mg Finasteride (Proscar -) 5 mg PO DAILY [facility] Last Admin: 10/01/19 11:02 Dose: 5 mg Insulin Aspart (Novolog Vial Sliding Scale -) 1 vial SQ [facility]; Protocol Last Admin: 10/01/19 06:13 Dose: Not Given Insulin Aspart (Novolog Vial) 2 units SQ ACLD [facility] Last Admin: 09/30/19 17:16 Dose: 2 units Insulin Detemir (Levemir Vial) 24 units SQ AM [facility] Nebivolol (Bystolic -) 2.5 mg PO HS [facility] Last Admin: 09/30/19 21:25 Dose: 2.5 mg Nystatin (Nystop Powder -) 1 applic TP BID [facility] Last Admin: 10/01/19 11:02 Dose: 1 applic Ondansetron HCl (Zofran Injection) 4 mg IVPUSH Q6H PRN PRN Reason: NAUSEA AND/OR VOMITING Tamsulosin HCl (Flomax -) 0.4 mg PO BID@0830,2200 [facility] Last Admin: 10/01/19 11:02 Dose: 0.4 mg - Objective Vital Signs: Vital Signs Temperature 97.8 F 10/01/19 06:00 Pulse Rate 73 10/01/19 06:00 Respiratory Rate 20 10/01/19 06:00 Blood Pressure 133/74 10/01/19 06:00 O2 Sat by Pulse Oximetry (%) 100 09/30/19 21:00 Labs: CBC, BMP 10/01/19 06:10 10/01/19 06:10 INR, PTT INR 1.42 (0.83-1.09) H 09/14/19 06:38
[2019-10-01] MEDS: INSULIN (NOVOLOG) ASPART 100 UNITS/ML 10ML VIAL SQ SCH ×2 (12:04→17:13)
[2019-10-01] MEDS ORDERED: PT OWN MED DRAWER 7, Y5N ONE (14:01)
--- NOTE | 2019-10-01 15:40 | PN ---
Teaching Attending Note Name of Resident: Stevie Grubbs ATTENDING PHYSICIAN STATEMENT I saw and evaluated the patient. I reviewed the resident's note and discussed the case with the resident. I agree with the resident's findings and plan as documented. SUBJECTIVE: Patient appears comfortable. OBJECTIVE: Vital Signs Period Temp Pulse Resp BP Sys/Poole Pulse Ox Last 24 Hr 97.4 F-98.0 F 64-97 20-20 129-149/68-84 100 HEART: S1S2, RRR LUNGS: Clear ABDOMEN: Soft, non-distended, non-tender, normal BS EXTREMITIES: No edema Laboratory Results - last 24 hr 09/30/19 09/30/19 10/01/19 17:03 21:29 05:40 WBC RBC Hgb Hct MCV MCH MCHC RDW Plt Count MPV Sodium Potassium Chloride Carbon Dioxide Anion Gap BUN Creatinine Est GFR (CKD-EPI)AfAm Est GFR (CKD-EPI)NonAf POC Glucometer 128 191 52 Random Glucose Calcium 10/01/19 10/01/19 10/01/19 06:10 06:10 06:11 WBC 8.7 RBC 3.54 L Hgb 10.3 L Hct 31.1 L MCV 87.8 MCH 29.0 MCHC 33.0 RDW 15.6 Plt Count 162 MPV 8.4 Sodium 137 Potassium 4.3 Chloride 105 Carbon Dioxide 29 Anion Gap 4 L BUN 17.1 Creatinine 1.1 Est GFR (CKD-EPI)AfAm 73.61 Est GFR (CKD-EPI)NonAf 63.51 POC Glucometer 81 Random Glucose 108 H Calcium 8.7 10/01/19 11:18 WBC RBC Hgb Hct MCV MCH MCHC RDW Plt Count MPV Sodium Potassium Chloride Carbon Dioxide Anion Gap BUN Creatinine Est GFR (CKD-EPI)AfAm Est GFR (CKD-EPI)NonAf POC Glucometer 195 Random Glucose Calcium Current Medications Generic Name Dose Route Start Last Admin Trade Name Freq PRN Reason Stop Dose Admin Acetaminophen 650 mg 09/04/19 10:34 09/22/19 13:29 Tylenol - PO 650 mg Q4H PRN Administration FEVER Albuterol/Ipratropium 1 amp 09/28/19 12:45 10/01/19 11:06 Duoneb - NEB 1 amp Q6H PRN Administration SHORTNESS OF BREATH Atorvastatin Calcium 40 mg 09/02/19 22:00 09/30/19 21:25 Lipitor - PO 40 mg HS [facility] Administration Bethanechol Chloride 25 mg 09/30/19 22:00 10/01/19 05:39 Urecholine - PO 25 mg TID [facility] Administration Donepezil HCl 10 mg 09/11/19 10:00 10/01/19 11:02 Aricept - PO 10 mg DAILY [facility] Administration Ezetimibe 10 mg 09/02/19 22:00 09/30/19 21:25 Zetia - PO 10 mg HS [facility] Administration Escitalopram Oxalate 10 mg 09/11/19 10:00 10/01/19 11:02 Lexapro - PO 10 mg DAILY [facility] Administration Ferrous Sulfate 325 mg 09/15/19 17:30 10/01/19 11:02 Feosol - PO 325 mg BIDWM [facility] Administration Finasteride 5 mg 09/11/19 10:00 10/01/19 11:02 Proscar - PO 5 mg DAILY [facility] Administration Insulin Aspart 1 vial 09/19/19 07:03 10/01/19 12:03 Novolog Vial Sliding Scale - SQ 4 units ACHS [facility] Administration Protocol Insulin Aspart 2 units 09/23/19 07:48 10/01/19 12:04 Novolog Vial SQ 2 units ACLD [facility] Administration Insulin Detemir 24 units 10/01/19 07:12 Levemir Vial SQ AM [facility] Nebivolol 2.5 mg 09/02/19 22:00 09/30/19 21:25 Bystolic - PO 2.5 mg HS [facility] Administration Nystatin 1 applic 09/05/19 11:30 10/01/19 11:02 Nystop Powder - TP 1 applic BID [facility] Administration Ondansetron HCl 4 mg 09/13/19 17:01 Zofran Injection IVPUSH Q6H PRN NAUSEA AND/OR VOMITING Tamsulosin HCl 0.4 mg 09/11/19 08:45 10/01/19 11:02 Flomax - PO 0.4 mg BID@0830,2200 [facility] Administration ASSESSMENT AND PLAN: This is a 79 year old man with a history of HTN, hyperlipidemia, CAD, NM, CABG, chronic diastolic heart failure, type 2 DM, stage 3 CKD, COPD, dementia who presented to the ED with altered mental status. 1. BPH with obstruction, gross hematuria - s/p evacuation of clots, TURP, TUVP on 09/13 - CBI discontinued and urine has remained clear - Patient failed voiding trial yesterday and Strong has been re-inserted - will discharge with Strong in place - Continue Flomax, Proscar 2. Acute metabolic encephalopathy secondary to hyperosmolar hyperglycemic state - Resolved 3. Type 2 DM, uncontrolled - Control is better with Levemir, standing Novolog, Novolog sliding scale 4. Acute kidney injury - Resolved 5. Hypernatremia - Resolved 6. Hypophosphatemia - Resolved 7. Lactic acidosis - Resolved 8. HTN - Continue Bystolic 9. Hyperlipidemia - Continue Lipitor, Zetia 10. CAD, history of NM, CABG - Continue Bystolic, Lipitor, Zetia 11. Chronic diastolic heart failure - Stable 12. Stage 3 CKD - Stable 13. COPD - Stable 14. 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 UTI - Treated with Doxycycline, Levaquin 16. Disposition - Ok for discharge home with Strong and VNS
--- NOTE | 2019-10-01 17:14 | PN ---
Progress Note, Physician History of Present Illness: Pt seen and examined. He appears comfortable. Urine is clear. - Current Medication List Current Medications: Active Medications Acetaminophen (Tylenol -) 650 mg PO Q4H PRN PRN Reason: FEVER Last Admin: 09/22/19 13:29 Dose: 650 mg Albuterol/Ipratropium (Duoneb -) 1 amp NEB Q6H PRN PRN Reason: SHORTNESS OF BREATH Last Admin: 10/01/19 11:06 Dose: 1 amp Atorvastatin Calcium (Lipitor -) 40 mg PO HS [facility] Last Admin: 09/30/19 21:25 Dose: 40 mg Bethanechol Chloride (Urecholine -) 25 mg PO TID [facility] Last Admin: 10/01/19 15:47 Dose: Not Given Donepezil HCl (Aricept -) 10 mg PO DAILY [facility] Last Admin: 10/01/19 11:02 Dose: 10 mg Ezetimibe (Zetia -) 10 mg PO HS [facility] Last Admin: 09/30/19 21:25 Dose: 10 mg Escitalopram Oxalate (Lexapro -) 10 mg PO DAILY [facility] Last Admin: 10/01/19 11:02 Dose: 10 mg Ferrous Sulfate (Feosol -) 325 mg PO BIDWM [facility] Last Admin: 10/01/19 11:02 Dose: 325 mg Finasteride (Proscar -) 5 mg PO DAILY [facility] Last Admin: 10/01/19 11:02 Dose: 5 mg Insulin Aspart (Novolog Vial Sliding Scale -) 1 vial SQ ACHS [facility]; Protocol Last Admin: 10/01/19 12:03 Dose: 4 units Insulin Aspart (Novolog Vial) 2 units SQ ACLD [facility] Last Admin: 10/01/19 12:04 Dose: 2 units Insulin Detemir (Levemir Vial) 24 units SQ AM [facility] Nebivolol (Bystolic -) 2.5 mg PO HS [facility] Last Admin: 09/30/19 21:25 Dose: 2.5 mg Nystatin (Nystop Powder -) 1 applic TP BID [facility] Last Admin: 10/01/19 11:02 Dose: 1 applic Ondansetron HCl (Zofran Injection) 4 mg IVPUSH Q6H PRN PRN Reason: NAUSEA AND/OR VOMITING Tamsulosin HCl (Flomax -) 0.4 mg PO BID@0830,2200 [facility] Last Admin: 10/01/19 11:02 Dose: 0.4 mg - Objective Vital Signs: Vital Signs Temperature 97.4 F L 10/01/19 13:43 Pulse Rate 71 10/01/19 13:43 Respiratory Rate 20 10/01/19 13:43 Blood Pressure 129/68 10/01/19 13:43 O2 Sat by Pulse Oximetry (%) 95 10/01/19 09:00 Constitutional: Yes: Calm HENT: Yes: Atraumatic Cardiovascular: Yes: S1, S2 Respiratory: Yes: CTA Bilaterally Gastrointestinal: Yes: Soft Genitourinary: Yes: Strong Present. No: Hematuria Musculoskeletal: Yes: WNL Edema: No Neurological: Yes: Confusion Labs: CBC, BMP 10/01/19 06:10 10/01/19 06:10 INR, PTT INR 1.42 (0.83-1.09) H 09/14/19 06:38 Problem List - Problems (1) KIKI (acute kidney injury) Code(s): N17.9 - ACUTE KIDNEY FAILURE, UNSPECIFIED (2) DKA (diabetic ketoacidoses) Code(s): E11.10 - TYPE 2 DIABETES MELLITUS WITH KETOACIDOSIS WITHOUT COMA Qualifiers: Diabetes mellitus type: type 2 Diabetes mellitus complication detail: without coma Qualified Code(s): E11.10 - Type 2 diabetes mellitus with ketoacidosis without coma (3) Acute renal failure Code(s): N17.9 - ACUTE KIDNEY FAILURE, UNSPECIFIED (4) Hypernatremia Code(s): E87.0 - HYPEROSMOLALITY AND HYPERNATREMIA Assessment/Plan Current Medications Generic Name Dose Route Start Last Admin Trade Name Severoq PRN Reason Stop Dose Admin Acetaminophen 650 mg 09/04/19 10:34 09/22/19 13:29 Tylenol - PO 650 mg Q4H PRN Administration FEVER Albuterol/Ipratropium 1 amp 09/28/19 12:45 10/01/19 11:06 Duoneb - NEB 1 amp Q6H PRN Administration SHORTNESS OF BREATH Atorvastatin Calcium 40 mg 09/02/19 22:00 09/30/19 21:25 Lipitor - PO 40 mg HS [facility] Administration Bethanechol Chloride 25 mg 09/30/19 22:00 10/01/19 15:47 Urecholine - PO Not Given TID [facility] Donepezil HCl 10 mg 09/11/19 10:00 10/01/19 11:02 Aricept - PO 10 mg DAILY [facility] Administration Ezetimibe 10 mg 09/02/19 22:00 09/30/19 21:25 Zetia - PO 10 mg HS [facility] Administration Escitalopram Oxalate 10 mg 09/11/19 10:00 10/01/19 11:02 Lexapro - PO 10 mg DAILY [facility] Administration Ferrous Sulfate 325 mg 09/15/19 17:30 10/01/19 11:02 Feosol - PO 325 mg BIDWM [facility] Administration Finasteride 5 mg 09/11/19 10:00 10/01/19 11:02 Proscar - PO 5 mg DAILY [facility] Administration Insulin Aspart 1 vial 09/19/19 07:03 10/01/19 12:03 Novolog Vial Sliding Scale - SQ 4 units ACHS [facility] Administration Protocol Insulin Aspart 2 units 09/23/19 07:48 10/01/19 12:04 Novolog Vial SQ 2 units ACLD [facility] Administration Insulin Detemir 24 units 10/01/19 07:12 Levemir Vial SQ AM [facility] Nebivolol 2.5 mg 09/02/19 22:00 09/30/19 21:25 Bystolic - PO 2.5 mg HS [facility] Administration Nystatin 1 applic 09/05/19 11:30 10/01/19 11:02 Nystop Powder - TP 1 applic BID [facility] Administration Ondansetron HCl 4 mg 09/13/19 17:01 Zofran Injection IVPUSH Q6H PRN NAUSEA AND/OR VOMITING Tamsulosin HCl 0.4 mg 09/11/19 08:45 10/01/19 11:02 Flomax - PO 0.4 mg BID@0830,2200 [facility] Administration Impression 1. KIKI 2. DKA 3. hypernatremia 4. DM 5. dementia 6. cad 7. hyperkalemia 8. hematuria Plan - sodium has remained stable - urine is clear - renal function is stable - monitor labs
--- NOTE | 2019-10-01 18:05 | DS ---
Physical Exam: UPDATE: PT's son opted to pay [id number] expense to [employer] and has until noon to provide funds. Pending funds will d/c to [facility] SUBJECTIVE: Shaye coloured urine noted; no acute events overnight. HPI limited OBJECTIVE: Vital Signs Period Temp Pulse Resp BP Sys/Poole Pulse Ox Last 24 Hr 97.4 F-98.0 F 64-97 20-20 129-149/68-84 95-100 PHYSICAL EXAM Gen: NAD, awake, alert HEENT: NC/AT, ANTONIO, MMM Neck: No JVD LUNG: CTA bilaterally, no wheezes or rales noted CARD: RRR no murmurs appreciated ABD: Soft, Nt/ND, normoactive BS EXT: No edema appreciated, cap refill <2sec Skin: No rashes or lesions noted LABS Laboratory Results - last 24 hr 09/30/19 10/01/19 10/01/19 21:29 05:40 06:10 WBC 8.7 RBC 3.54 L Hgb 10.3 L Hct 31.1 L MCV 87.8 MCH 29.0 MCHC 33.0 RDW 15.6 Plt Count 162 MPV 8.4 Sodium Potassium Chloride Carbon Dioxide Anion Gap BUN Creatinine Est GFR (CKD-EPI)AfAm Est GFR (CKD-EPI)NonAf POC Glucometer 191 52 Random Glucose Calcium 10/01/19 10/01/19 10/01/19 06:10 06:11 11:18 WBC RBC Hgb Hct MCV MCH MCHC RDW Plt Count MPV Sodium 137 Potassium 4.3 Chloride 105 Carbon Dioxide 29 Anion Gap 4 L BUN 17.1 Creatinine 1.1 Est GFR (CKD-EPI)AfAm 73.61 Est GFR (CKD-EPI)NonAf 63.51 POC Glucometer 81 195 Random Glucose 108 H Calcium 8.7 10/01/19 17:10 WBC RBC Hgb Hct MCV MCH MCHC RDW Plt Count MPV Sodium Potassium Chloride Carbon Dioxide Anion Gap BUN Creatinine Est GFR (CKD-EPI)AfAm Est GFR (CKD-EPI)NonAf POC Glucometer 268 Random Glucose Calcium IMAGING: ABD U/S: IMPRESSION: Limited examination likely due to the patient's body habitus. The liver appears to be slightly hyperechoic suggestive of mild fatty infiltration versus hepatocellular disease. No gross gallstones identified. Borderline thickening of the gallbladder wall without evidence of acute cholecystitis. Nonvisualization of the pancreas. Nonvisualization of the abdominal aorta and inferior vena cava. Right renal simple cyst measuring 2.1 cm. Abd/Pelvis CT: IMPRESSION: Constipation. Mild fullness of the collecting system with a dilated bladder which could represent reflux. Paraumbilical hernia with no stranding. Hiatal hernia seen previously. Renal cysts. Head CT: IMPRESSION: No significant interval change Moderate to marked ventricular dilatation with a lateral and third ventricles are relatively more dilated than for. Degree of the ventricular dilatation is more than expected for the degree of cortical atrophy. 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 Otherwise, no interval acute intracranial pathology is identified. A preliminary report was forwarded by the [facility] service, HOSPITAL COURSE: Date of Admission:09/01/19 Date of Discharge: 10/01/19 Pt admitted to hospital on 09/01/19 due to HHS. Pt was placed on insulin gtt and HHS protocol until which he was able to transition to the floor alongside of subcutaneously insulin. Pt was seen by endocrinology with final insulin regiment being Levemir 15U BID, Novolog 2U before Lunch and dinner, alongside of ISS for further coverage if needed. During patient's workup he was found to have MRSA UTI which is being treated with Doxycycline 100mg BID for a total of 5 days. Unfortunately patient was given trial of void period where he did not void for 24hrs. Arguello was placed, tamsulosin was increased to 0.4mg BID alongside of newly added Proscar 5mg qdaily. Pt's hospitalization was prolonged 2/2 to insurance denial and denial of appeal. Unfortunately at this point pt began to have gross hematuria for which urology was consulted. Pt was assessed and underwent cystoscopy with Dr. Carolyne Morris revealing blood near prostate with clots. Pt received a TURP and was placed on CBI which has now been ceased. Unfortunately pt developed hematuria at this point and had urology recalled. CBI was initiated and after 24h pt had CBI ceased without hematuria and arguello removed. Unfortunately pt failed ToV and had arguello reinsert. Pt is to follow with outpatient urology. In addition, pt's glycemic control remains difficult to control and has been increased to Levemir 35U AM and pre-lunch/dinner 2U with ISS as breakthrough. Pt had notable hypoglycemic events in AM fasting levels and glucose control was decreased to Levemir 24U AM and pre-lung/dinner 2U with ISS as breakthrough. Glucose levels have been 100-150 while on this regiment. Minutes to complete discharge: 33 Discharge Summary Problems reviewed: Yes Reason For Visit: ACUTE KIDNEY INJURY, DIABETIC KETOACIDOSIS, COLITI Current Active Problems KIKI (acute kidney injury) (Acute) DKA (diabetic ketoacidoses) (Acute) Obesity (BMI 30-39.9) (Chronic) Condition: Stable - Instructions Diet, Activity, Other Instructions: Please STOP using the insulin pump Instead you will be using Levemir 24 qAM Novolog 2U with Lunch and Dinner Sliding scale as below for NEEDED coverage: 100-150 0units 151-200 4units 201-250 6units 251-300 8units 301-350 10units 351-400 12 units >400 14 units and go to the ER or call a doctor You have completed antibiotics while in the hospital Also continue taking Aricept 10mg daily and Lexapro 10mg daily as suggested by the neurologist Continue Proscar 5mg daily. We increased your Tamsulosin to 0.4mg TWICE daily and please use compression stockings to help with any orthostatic hypotension seen You failed a voiding trial and had the catheter reinserted. Urology stated that there is no inpatient treatment and will have you follow-up in 3-5 days. Diet: Puree diet diabetic and sodium controlled with thin liquids Follow-up with Dr. Yamila Morris regarding the arguello catheter within 3-5 days. Please maintain the arguello catheter Follow-up with Dr. Lynch for the diabetes. Follow-up with Dr. Shahid in 3-5 days to update them on your care Follow-up with the rest of the referrals as above Referrals: Xochitl Shahid MD [Staff Physician] - Yoin Lynch MD [Staff Physician] - 2 Weeks Yamila Morris MD [Staff Physician] - 1 Week Jeannie Edwards MD [Staff Physician] - 1 Week Sintia Belle DPM [Staff Physician] - 1 Month (For diabetic foot checks) Disposition: VNS/HOME HEALTH CARE - Home Medications Comprehensive Discharge Medication List: Ambulatory Orders Atorvastatin Ca [Lipitor] 40 mg PO DAILY 05/06/19 Clopidogrel Bisulfate [Plavix] 75 mg PO DAILY 05/06/19 Ezetimibe 10 mg PO HS 05/06/19 Nebivolol HCl [Bystolic] 2.5 mg PO HS 05/06/19 Tamsulosin HCl 0.4 mg PO DAILY 05/06/19 Compression Socks, Medium [Futuro Restoring] 1 each MC DAILY #1 each 09/06/19 Donepezil HCl [Aricept -] 5 mg PO DAILY tablet 09/06/19 Doxycycline Hyclate [Vibramycin -] 100 mg PO BID@1000,1800 3 Days #6 capsule 10/15 Escitalopram Oxalate [Lexapro -] 10 mg PO DAILY tablet 09/06/19 Insulin (Levemir) [Levemir Vial] 15 units SQ BID@0700,2200 units 09/06/19 Insulin Aspart [Novolog] 2 unit SQ ACLD #1 cartridge 09/06/19 Insulin Sliding Scale [Novolog Vial Sliding Scale -] 1 vial SQ ACHS units 09/06 Tamsulosin HCl 0.4 mg PO BID #60 capsule 09/06/19 This patient is new to me today: No Emergency Visit: Yes ED Registration Date: 09/01/19 Care time: The patient presented to the Emergency Department on the above date and was hospitalized for further evaluation of their emergent condition. Critical Care patient: No - Discharge Referral Referred to [facility] Med [facility].C.: No ATTENDING PHYSICIAN STATEMENT I saw and evaluated the patient. I reviewed the resident's note and discussed the case with the resident. I agree with the resident's findings and plan as documented. SUBJECTIVE: OBJECTIVE: ASSESSMENT AND PLAN:
[2019-10-01] MEDS: ATORVASTATIN CA 40 MG TABLET (FP) PO SCH (22:11)
[2019-10-01] MEDS: NEBIVOLOL 2.5 MG TABLET (FP) PO SCH (22:12)
[2019-10-01] MEDS: EZETIMIBE 10 MG TABLET (FP) PO SCH (22:12)
[2019-10-02] MEDS ORDERED: PT OWN MED DRAWER 7, Y5N ONE (05:28)
[2019-10-02] MEDS: BETHANECHOL CHLORIDE 25 MG TABLET PO SCH (05:38)
[2019-10-02] MEDS: INSULIN SLIDING SCALE (NOVOLOG) 1 VIAL SQ SCH ×2 (06:04→11:53)
[2019-10-02] MEDS: ESCITALOPRAM OXALATE 10 MG TABLET (FP) PO SCH (09:52)
[2019-10-02] MEDS: TAMSULOSIN HCL 0.4 MG CAP PO SCH (09:52)
[2019-10-02] MEDS: DONEPEZIL HCL 10 MG TABLET (FP) PO SCH (09:52)
[2019-10-02] MEDS: FINASTERIDE 5 MG TABLET (FP) PO SCH (09:52)
[2019-10-02] MEDS: NYSTATIN POWDER 100,000 UNITS/GM - 15 GM TOPICAL POWDER TP SCH (09:52)
[2019-10-02] MEDS: FERROUS SO4 325 MG TABLET (FP) PO SCH (09:52)
[2019-10-02 10:10] VITALS: BP 149/63; PULSE 52; TEMP 97.6
[2019-10-02] MEDS: INSULIN (NOVOLOG) ASPART 100 UNITS/ML 10ML VIAL SQ SCH (11:53)
[2019-10-02] MEDS: ALBUTEROL SO4 2.5/IPRATROPIUM 0.5 INH SOL 3 ML VIAL.NEB. NEB PRN (12:10)
--- NOTE | 2019-10-02 12:30 | PN ---
Progress Note, Physician History of Present Illness: Pt seen and examined. He still has arguello. He appears comfortable. - Current Medication List Current Medications: Active Medications Acetaminophen (Tylenol -) 650 mg PO Q4H PRN PRN Reason: FEVER Last Admin: 09/22/19 13:29 Dose: 650 mg Albuterol/Ipratropium (Duoneb -) 1 amp NEB Q6H PRN PRN Reason: SHORTNESS OF BREATH Last Admin: 10/02/19 12:10 Dose: 1 amp Atorvastatin Calcium (Lipitor -) 40 mg PO HS [facility] Last Admin: 10/01/19 22:11 Dose: 40 mg Bethanechol Chloride (Urecholine -) 25 mg PO TID [facility] Last Admin: 10/02/19 05:38 Dose: 25 mg Donepezil HCl (Aricept -) 10 mg PO DAILY [facility] Last Admin: 10/02/19 09:52 Dose: 10 mg Ezetimibe (Zetia -) 10 mg PO HS [facility] Last Admin: 10/01/19 22:12 Dose: 10 mg Escitalopram Oxalate (Lexapro -) 10 mg PO DAILY [facility] Last Admin: 10/02/19 09:52 Dose: 10 mg Ferrous Sulfate (Feosol -) 325 mg PO BIDWM [facility] Last Admin: 10/02/19 09:52 Dose: 325 mg Finasteride (Proscar -) 5 mg PO DAILY [facility] Last Admin: 10/02/19 09:52 Dose: 5 mg Insulin Aspart (Novolog Vial Sliding Scale -) 1 vial SQ ACHS [facility]; Protocol Last Admin: 10/02/19 11:53 Dose: 4 units Insulin Aspart (Novolog Vial) 2 units SQ ACLD [facility] Last Admin: 10/02/19 11:53 Dose: 2 units Insulin Detemir (Levemir Vial) 24 units SQ AM [facility] Last Admin: 10/02/19 06:05 Dose: 24 units Nebivolol (Bystolic -) 2.5 mg PO HS [facility] Last Admin: 10/01/19 22:12 Dose: 2.5 mg Nystatin (Nystop Powder -) 1 applic TP BID [facility] Last Admin: 10/02/19 09:52 Dose: 1 applic Ondansetron HCl (Zofran Injection) 4 mg IVPUSH Q6H PRN PRN Reason: NAUSEA AND/OR VOMITING Tamsulosin HCl (Flomax -) 0.4 mg PO BID@0830,2200 DAISHA Last Admin: 10/02/19 09:52 Dose: 0.4 mg - Objective Vital Signs: Vital Signs Temperature 97.6 F 10/02/19 10:00 Pulse Rate 52 L 10/02/19 10:00 Respiratory Rate 22 H 10/02/19 10:00 Blood Pressure 149/63 10/02/19 10:00 O2 Sat by Pulse Oximetry (%) 93 L 10/02/19 09:00 Constitutional: Yes: Calm Eyes: Yes: Conjunctiva Clear HENT: Yes: Atraumatic Neck: Yes: Supple Cardiovascular: Yes: S1, S2 Respiratory: Yes: CTA Bilaterally Gastrointestinal: Yes: Normal Bowel Sounds, Soft Genitourinary: Yes: Arguello Present Musculoskeletal: Yes: WNL Neurological: Yes: Confusion Labs: CBC, BMP 10/01/19 06:10 10/01/19 06:10 INR, PTT INR 1.42 (0.83-1.09) H 09/14/19 06:38 Problem List - Problems (1) KIKI (acute kidney injury) Code(s): N17.9 - ACUTE KIDNEY FAILURE, UNSPECIFIED (2) DKA (diabetic ketoacidoses) Code(s): E11.10 - TYPE 2 DIABETES MELLITUS WITH KETOACIDOSIS WITHOUT COMA Qualifiers: Diabetes mellitus type: type 2 Diabetes mellitus complication detail: without coma Qualified Code(s): E11.10 - Type 2 diabetes mellitus with ketoacidosis without coma (3) Acute renal failure Code(s): N17.9 - ACUTE KIDNEY FAILURE, UNSPECIFIED (4) Hypernatremia Code(s): E87.0 - HYPEROSMOLALITY AND HYPERNATREMIA Assessment/Plan Current Medications Generic Name Dose Route Start Last Admin Trade Name Freq PRN Reason Stop Dose Admin Acetaminophen 650 mg 09/04/19 10:34 09/22/19 13:29 Tylenol - PO 650 mg Q4H PRN Administration FEVER Albuterol/Ipratropium 1 amp 09/28/19 12:45 10/02/19 12:10 Duoneb - NEB 1 amp Q6H PRN Administration SHORTNESS OF BREATH Atorvastatin Calcium 40 mg 09/02/19 22:00 10/01/19 22:11 Lipitor - PO 40 mg HS DAISHA Administration Bethanechol Chloride 25 mg 09/30/19 22:00 10/02/19 05:38 Urecholine - PO 25 mg TID DAISHA Administration Donepezil HCl 10 mg 09/11/19 10:00 10/02/19 09:52 Aricept - PO 10 mg DAILY DAISHA Administration Ezetimibe 10 mg 09/02/19 22:00 10/01/19 22:12 Zetia - PO 10 mg HS DAISHA Administration Escitalopram Oxalate 10 mg 09/11/19 10:00 10/02/19 09:52 Lexapro - PO 10 mg DAILY DAISHA Administration Ferrous Sulfate 325 mg 09/15/19 17:30 10/02/19 09:52 Feosol - PO 325 mg BIDWM DAISHA Administration Finasteride 5 mg 09/11/19 10:00 10/02/19 09:52 Proscar - PO 5 mg DAILY DAISHA Administration Insulin Aspart 1 vial 09/19/19 07:03 10/02/19 11:53 Novolog Vial Sliding Scale - SQ 4 units ACHS DAISHA Administration Protocol Insulin Aspart 2 units 09/23/19 07:48 10/02/19 11:53 Novolog Vial SQ 2 units ACLD DAISHA Administration Insulin Detemir 24 units 10/01/19 07:12 10/02/19 06:05 Levemir Vial SQ 24 units AM DAISHA Administration Nebivolol 2.5 mg 09/02/19 22:00 10/01/19 22:12 Bystolic - PO 2.5 mg HS DAISHA Administration Nystatin 1 applic 09/05/19 11:30 10/02/19 09:52 Nystop Powder - TP 1 applic BID DAISHA Administration Ondansetron HCl 4 mg 09/13/19 17:01 Zofran Injection IVPUSH Q6H PRN NAUSEA AND/OR VOMITING Tamsulosin HCl 0.4 mg 09/11/19 08:45 10/02/19 09:52 Flomax - PO 0.4 mg BID@0830,2200 DAISHA Administration Impression 1. KIKI 2. DKA 3. hypernatremia 4. DM 5. dementia 6. cad 7. hyperkalemia 8. hematuria Plan - no new labs - pt will be discharged with arguello - outpt urology follow up - can see in office as needed - avoid nsaids
--- NOTE | 2019-10-02 18:28 | CONS ---
DATE OF CONSULTATION: DATE OF DICTATION: The patient is a 79-year-old male with multiple medical problems including receiving anticoagulation. He underwent a cystoscopy with evacuation of clots and cauterization of bleeding. Several attempts at removal of a Strong have been unsuccessful. Reinsertion of a Strong always reveals recurrence of his hematuria. Currently, his Strong is patent. His urine is clear. The patient is disoriented to time, place and person and is noncompliant. Will recommend discharging the patient home with Strong to leg bag. Will see the patient in two weeks in the office. Will arrange that with a family member. Again, the patient is to keep the Strong and would recommend keeping the patient on Macrodantin 100 mg p.o. nightly and vitamin C at one gram p.o. nightly. Will follow as outpatient. ROBIN RICH M.D. [id number]
== END 2019-10-02 14:14 | DRG 987 ==
LOC: JER 20:36 → JERBED 23:00 → JICU 09-02 01:16 → J6S 09-02 22:04 → JSAMEDAYSX 09-03 07:55 → J6S 09-03 07:56 → J7W 09-04 18:25
PROVIDERS: ADMIT Internal Medicine; ATTEND Internal Medicine
PROC: 0VT08ZZ Resection of Prostate, Via Natural or Artificial Opening Endoscopic (ICD-10-PCS; principal; 2019-09-13 15:00)
PROC: 0TCB8ZZ Extirpation of Matter from Bladder, Via Natural or Artificial Opening Endoscopic (ICD-10-PCS; 2019-09-13 15:00)
DX: E11.00 Type 2 diabetes mellitus with hyperosmolarity without nonketotic hyperglycemic-hyperosmolar coma (NKHHC) (principal); G93.41 Metabolic encephalopathy; N17.9 Acute kidney failure, unspecified; N13.30 Unspecified hydronephrosis; E87.2 Acidosis; E87.1 Hypo-osmolality and hyponatremia; I13.0 Hypertensive heart and chronic kidney disease with heart failure and stage 1 through stage 4 chronic kidney disease, or unspecified chronic kidney disease; E87.0 Hyperosmolality and hypernatremia; I50.32 Chronic diastolic (congestive) heart failure; G91.2 (Idiopathic) normal pressure hydrocephalus; N30.01 Acute cystitis with hematuria; I25.10 Atherosclerotic heart disease of native coronary artery without angina pectoris; I25.2 Old myocardial infarction; Z95.1 Presence of aortocoronary bypass graft; J45.909 Unspecified asthma, uncomplicated; E11.319 Type 2 diabetes mellitus with unspecified diabetic retinopathy without macular edema; Z79.4 Long term (current) use of insulin; E88.09 Other disorders of plasma-protein metabolism, not elsewhere classified; E11.22 Type 2 diabetes mellitus with diabetic chronic kidney disease; E11.65 Type 2 diabetes mellitus with hyperglycemia; K59.00 Constipation, unspecified; E83.39 Other disorders of phosphorus metabolism; E11.10 Type 2 diabetes mellitus with ketoacidosis without coma; N18.3 Chronic kidney disease, stage 3 (moderate); G30.9 Alzheimer's disease, unspecified; F02.80 Dementia in other diseases classified elsewhere, unspecified severity, without behavioral disturbance, psychotic disturbance, mood disturbance, and anxiety; H54.8 Legal blindness, as defined in USA; E86.0 Dehydration; E66.9 Obesity, unspecified; N40.1 Benign prostatic hyperplasia with lower urinary tract symptoms; R33.8 Other retention of urine; B95.62 Methicillin resistant Staphylococcus aureus infection as the cause of diseases classified elsewhere; E87.5 Hyperkalemia; J44.9 Chronic obstructive pulmonary disease, unspecified; E11.649 Type 2 diabetes mellitus with hypoglycemia without coma; N28.1 Cyst of kidney, acquired; Z68.27 Body mass index [BMI] 27.0-27.9, adult
CPT/HCPCS: 36415; 36430; 36511; 36600; 70450-TC; 71045-TC-FY; 74176-TC; 76705-TC; 76775-TC; 80048; 80053; 81003; 82009; 82272; 82375; 82436; 82728; 82803; 82962; 83036; 83050; 83540; 83550; 83605; 83690; 83735; 83880; 84100; 84133; 84300; 84484; 85025; 85027; 85610; 86850; 86900; 86901; 86922; 87040; 87077; 87086; 87186; 88305-TC; 93005; 93010; 93306-TC; 94640; 94760; 97116-GP; 97162-GP; 99283-25; J1644; P9038; P9058

== ENCOUNTER 2019-10-04 08:50 | Inpatient (IN) | payer OTHER ==
[2019-10-04 09:19] VITALS: BMI 27.4
[2019-10-04 09:44] LABS: BASO % 1.3 % (0-2.0); EOS % 5.6 % (0-4.5); HEMATOCRIT 32.3 % (35.4-49); HEMOGLOBIN 10.4 GM/dL (11.7-16.9); LYMPH % 18.6 % (8-40); MCH 28.7 pg (25.7-33.7); MCHC 32.1 g/dl (32.0-35.9); MEAN CELL VOLUME 89.2 fl (80-96); MEAN PLT VOLUME 8.5 fl (7.5-11.1); MONO % 9.7 % (3.8-10.2); NEUT % 64.8 % (42.8-82.8); PLATELET COUNT 167 K/MM3 (134-434); RBC 3.62 M/mm3 (4.00-5.60); WHITE BLOOD COUNT 8.5 K/mm3 (4.0-10.0)
--- NOTE | 2019-10-04 09:54 | PDOC ---
History of Present Illness - General Chief Complaint: Congestive Heart Failure Stated Complaint: Shortness of Breath Time Seen by Provider: 10/04/19 09:19 History Source: Patient, Half-Way Records Exam Limitations: Clinical Condition, Dementia - History of Present Illness Initial Comments: 10/07/19 04:41 HPI: 79M PMH IDDM HTN HLD CAD CKD BIBEMS from [facility] for SOB. Recently discharged from [facility] for HHS. Patient has dementia at baseline and is a poor historian. Per MD records: 10/03/19 CXR demonstrating cardiomegaly w/ chf and right pleural effusoin, RLL infiltrate vs atelectasis w/ possible superimposed pna. Arguello in place 2/ bladder outlet obstruction; s/p TURP 09/13. Started on doxycycline 10/03/19 for MRSA UTI. Past History - Past Medical History Allergies/Adverse Reactions: Allergies Allergy/AdvReac Type Severity Reaction Status Date / Time No Known Allergies Allergy Verified 01/11/19 11:57 Home Medications: Ambulatory Orders Atorvastatin Ca [Lipitor] 40 mg PO DAILY 05/06/19 Ezetimibe 10 mg PO HS 05/06/19 Nebivolol HCl [Bystolic] 2.5 mg PO HS 05/06/19 Compression Socks, Medium [Futuro Restoring] 1 each MC DAILY #1 each 09/06/19 Escitalopram Oxalate [Lexapro -] 10 mg PO DAILY tablet 09/06/19 Insulin Aspart [Novolog] 2 unit SQ ACLD #1 cartridge 09/06/19 Insulin Sliding Scale [Novolog Vial Sliding Scale -] 1 vial SQ ACHS units 09/06 Tamsulosin HCl 0.4 mg PO BID #60 capsule 09/06/19 Insulin (Levemir) [Levemir Vial] 24 units SQ DAILY 10/04/19 Anemia: No Asthma: Yes Cancer: No Cardiac Disorders: Yes (cabg) CVA: No COPD: No CHF: No Dementia: No Diabetes: Yes GI Disorders: No Disorders: No HTN: Yes Hypercholesterolemia: Yes Liver Disease: No Seizures: No Thyroid Disease: No - Surgical History Abdominal Surgery: No Appendectomy: No Cardiac Surgery: Yes ('96) Cholecystectomy: No Lung Surgery: No Neurologic Surgery: No Orthopedic Surgery: Yes (rt hip orif) - Immunization History Immunization Up to Date: Yes - Psycho Social/Smoking Cessation Hx Smoking Status: No Smoking History: Never smoked Have you smoked in the past 12 months: No Number of Cigarettes Smoked Daily: 0 If you are a former smoker, when did you quit?: '96 Information on smoking cessation initiated: No Hx Alcohol Use: No Drug/Substance Use Hx: No Substance Use Type: None Hx Substance Use Treatment: No Review of Systems - Review of Systems Able to Perform ROS?: No (dementia) Comments:: 10/07/19 04:41 ROS: Limited 2/2 unreliable historian - denies all ROS *Physical Exam - Vital Signs Last Vital Signs Temp Pulse Resp BP Pulse Ox 98.0 F 80 22 H 179/65 H 100 10/04/19 08:51 10/04/19 08:51 10/04/19 08:51 10/04/19 09:25 10/04/19 09:20 - Physical Exam Comments: 10/07/19 04:41 PE: GEN: Moderate distress, AAOx1 HEENT: NC/AT. No facial asymmetry. Dyspnic speech CV: S1/S2, RRR, no m/r/g LUNG: Increased respiratory effort / work of breathing w/ accessory muscle use. Decreased air movement w/ coarse breath sounds. No wheezing appreciated GI: soft, ndnt, +BS : arguello in place EXTREMITIES: No LE edema. No obvious deformities of all extremities SKIN: warm, dry, normal turgor ED Treatment Course - LABORATORY CBC & Chemistry Diagram: 10/06/19 09:15 10/06/19 09:15 - RADIOLOGY Radiology Studies Ordered: Category Date Time Status CHEST X-RAY PORTABLE* [RAD] Stat Radiology 10/04/19 09:32 Ordered Medical Decision Making - Critical Care Time Total Critical Care Time (minutes): 30 Critical Care Statement: The care of this patient involved high complexity decision making to prevent further life threatening deterioration of the patient 's condition and/or to evaluate & treat vital organ system(s) failure or risk of failure. - Medical Decision Making 10/04/19 09:42 MDM: 79M BIBEMS from [facility] for SOB. Limited hx 2/2 dementia. Accessory muscle use, poor air movement w/ coarse breath sounds. DDx - Sepsis 2/2 PNA vs UTI, CHF, COPD, ACS - sepsis labs - BNP - cxr, ekg - vanc/zosyn 10/04/19 10:07 EKG 10/04/19 09:42 HR 70 NC 132 QTS 78 QTc 444 Normal [place], NSR 10/04/19 11:02 CXR impression - cardiomegaly, b/l pleural effusions 10/04/19 11:15 labs and VBG (pre-bipap) reviewed - acidosis - elevated PCO2 - BNP elevated 1999, about the same as the prior Admit ADMITTED Discharge - Discharge Information Problems reviewed: Yes Clinical Impression/Diagnosis: Respiratory distress UTI (urinary tract infection) Qualifiers: Urinary tract infection type: site unspecified Hematuria presence: with hematuria Qualified Code(s): N39.0 - Urinary tract infection, site not specified Condition: Stable - Admission Yes - Follow up/Referral - Patient Discharge Instructions - Post Discharge Activity
[2019-10-04] MEDS ORDERED: VANCOMYCIN 1 GM in D5W (PRE-DOCKED) 1,000 MG/250 ML IVPB ONE (10:02)
[2019-10-04] MEDS ORDERED: PIPERACILLIN/TAZOB 4.5 GM 4.5 GM in DEXTROSE 5%-WATER 100 ML IVPB ONE (10:03)
[2019-10-04] MEDS ORDERED: PIPERACILLIN/TAZOB 4.5 GM 4.5 GM/100 ML BAG IVPB ONE (10:06)
[2019-10-04] MEDS ORDERED: VANCOMYCIN 1 GRAM (PRE-DOCKED) 1,000 MG/250 ML BAG IVPB ONE (10:06)
[2019-10-04 10:14] LABS: VENOUS PC02 61.8 mmHg (38-52); VENOUS PH 7.27 (7.31-7.41); VENOUS PO2 76.8 mmHg (28-48)
[2019-10-04 10:23] LABS: INR 1.45 (0.83-1.09); PROTHROMBIN TIME (PATIENT) 17.2 SEC (9.7-13.0)
--- NOTE | 2019-10-04 10:25 | PDOC ---
Documentation entered by Kevyn Richey SCRIBE, acting as scribe for Renée Beatty MD. Renée Beatty MD: This documentation has been prepared by the Rossi olivera Nirvannie, SCRIBE, under my direction and personally reviewed by me in its entirety. I confirm that the documentation accurately reflects all work, treatment, procedures, and medical decision making performed by me. Attending Attestation - Resident Resident Name: Malik Guerra - ED Attending Attestation I have performed the following: I have examined & evaluated the patient, The case was reviewed & discussed with the resident, I agree w/resident's findings & plan - HPI HPI: 10/04/19 09:48 Mr. Adame is a 79 yo M h/o IDDM (recent admission for DKA), CAD s/p CABG, ND in 1997, CHF, CKD, COPD, dementia Pt s/p recent admission for DKA During that admission, pt noted to have urinary retention s/p cystoscopy, found to have a hemorrhagic prostate s/p TURP Pt has had a arguello cathether since then, is being treated with Doxycycline for MRSA UTI. Pt was sent to [facility] due to cough and shortness of breath. CXR performed on 10/03 reveals CHF, right pleural effusion and right lower lobe infiltrate. Pt sent to the ER for assessement of shortness of breath PAST MEDICAL HISTORY: IDDM, CAD s/p CABG, [place] in 1997, CHF, CKD, COPD, dementia PAST SURGICAL HISTORY: CABG, R hip surgery, TURP 10/04/19 09:54 10/04/19 10:02 - Physicial Exam PE: 10/04/19 10:07 GENERAL: The patient is sleepy but arousable to verbal stimuli, use of accessory muscles ENT: Dry mucous membranes. NECK: Normal range of motion, supple LUNGS: Decreased breah sounds at the bases, no wheezes HEART: Regular rate and rhythm, normal S1 and S2 without murmur, rub or gallop. ABDOMEN: Soft, nontender, protruberant EXTREMITIES: Normal range of motion, no edema. NEUROLOGICAL: Cranial nerves II through XII grossly intact. Normal speech. No focal neurological deficits. SKIN: Warm, Dry, normal turgor, no rashes or lesions noted. - Critical Care Time Total Critical Care Time: 60 Critical Care Statement: The care of this patient involved high complexity decision making to prevent further life threatening deterioration of the patient 's condition and/or to evaluate & treat vital organ system(s) failure or risk of failure. - Medical Decision Making 10/04/19 10:16 79 yo M presenting with a complaint of shortness of breath, difficulty breathing Pt s/p xray yesterday which demonstrates CHF, Pleural effusion, and a possible infiltrate Twelve-lead EKG was performed and reviewed by me. There is normal sinus rhythm with a normal rate of 70bpm. The axis is normal. The intervals are normal. There are no ST or T wave abnormalities. Impression: Normal twelve-lead EKG 10/04/19 10:18 Laboratory Tests 09/30/19 10/01/19 06:32 06:10 WBC 8.1 8.7 Hgb 10.8 L 10.3 L Hct 33.2 L 31.1 L Plt Count 155 162 Laboratory Tests 10/04/19 10/04/19 09:32 09:32 BUN 15.6 Creatinine 1.0 Creatine Kinase 58 Troponin I 0.02 B-Natriuretic Peptide 2036.2 H No leukocytosis Pt placed on BiPap to support his work of breathing Awaiting CMP Will give Lasix Will admit Pt is more comfortable 10/05/19 08:43
[2019-10-04 10:53] LABS: URINE APPEARANCE BLOODY; URINE COLOR RED
[2019-10-04 10:55] LABS: EPI CELLS FEW /HPF (0-5/HPF); URINE BACTERIA RARE /hpf (NEGATIVE); URINE RBC >100 /hpf (0-4)
[2019-10-04 10:56] LABS: YEAST PRESENT (NEGATIVE)
[2019-10-04 11:14] LABS: ALBUMIN 2.9 g/dl (3.4-5.0); BILIRUBIN,TOTAL 0.5 mg/dL (0.2-1); BLOOD UREA NITROGEN 15.6 mg/dL (7-18); N-TERMINAL BNP 2036.2 pg/ml (5-450)
[2019-10-04] MEDS ORDERED: INSULIN (NOVOLOG) ASPART 100 UNITS/ML 10ML VIAL SQ ONE (12:33)
[2019-10-04] MEDS ORDERED: FUROSEMIDE 40 MG/4 ML INJECTABLE VIAL IVPUSH ONE (12:34)
--- NOTE | 2019-10-04 12:37 | HP ---
CHIEF COMPLAINT: SOB PCP: Dr. Roasna Shahid HISTORY OF PRESENT ILLNESS: 79 y/o/m with PMHx of IDDM, CAD s/p CABG, [place] in 1997, CHF, CKD, COPD, dementia presenting from [facility] due to increased work of breathing. Pt placed on BiPap and noted to have b/l pleural effusions on CXR today. Pt at time of exam has increased work of breathing with tachypnea. Pt is unable to provide history , however is alert to sponaneous stimuli. PAST MEDICAL HISTORY: IDDM, CAD s/p CABG, [place] in 1997, CHF, CKD, COPD, dementia PAST SURGICAL HISTORY: CABG, R hip surgery Cystoscopy Social History: Smoking: none Alcohol: none Drugs: none Allergies No Known Allergies Allergy (Verified 01/11/19 11:57) HOME MEDICATIONS: Home Medications Medication Instructions Recorded Atorvastatin Ca [Lipitor] 40 mg PO DAILY 05/06/19 Ezetimibe 10 mg PO HS 05/06/19 Nebivolol HCl [Bystolic] 2.5 mg PO HS 05/06/19 Compression Socks, Medium [Futuro 1 each MC DAILY #1 each 09/06/19 Restoring] Escitalopram Oxalate [Lexapro -] 10 mg PO DAILY tablet 09/06/19 Insulin Aspart [Novolog] 2 unit SQ ACLD #1 cartridge 09/06/19 Insulin Sliding Scale [Novolog 1 vial SQ ACHS units 09/06/19 Vial Sliding Scale -] Tamsulosin HCl 0.4 mg PO BID #60 capsule 09/06/19 Insulin (Levemir) [Levemir Vial] 24 units SQ DAILY 10/04/19 REVIEW OF SYSTEMS Unable to obtain due to clinical condition PHYSICAL EXAMINATION Vital Signs - 24 hr 10/04/19 10/04/19 10/04/19 08:51 09:20 09:25 Temperature 98.0 F Pulse Rate 80 Pulse Rate [ Apical] Respiratory 22 H Rate Blood Pressure 210/84 H Blood Pressure 179/65 H [Left Arm] O2 Sat by Pulse 100 100 Oximetry (%) 10/04/19 10/04/19 10/04/19 09:38 09:55 10:02 Temperature Pulse Rate 70 Pulse Rate [ Apical] Respiratory Rate Blood Pressure Blood Pressure [Left Arm] O2 Sat by Pulse 100 100 100 Oximetry (%) 10/04/19 10/04/19 10/04/19 11:15 12:04 12:28 Temperature 98.6 F 97.8 F Pulse Rate Pulse Rate [ 63 61 Apical] Respiratory 22 H 19 Rate Blood Pressure Blood Pressure 157/76 145/68 [Left Arm] O2 Sat by Pulse 100 100 100 Oximetry (%) GENERAL: Mod respiratory distress, abdominal breathing, Awake, alert HEENT: NC/AT, MMM, no posterior oropharynx abnormalities NECK: No JVD LUNGS: Rales b/l at bases with distant breath sounds. Tachypnea noted with abdominal breathing. No wheezes HEART: RRR, normal S1 and S2 without murmur ABDOMEN: Soft, nontender, not distended, hypoactive bowel sounds, no guarding : arguello draining pink fluid without any clots in collection bag. EXTREMITIES: 2+ pulses, warm, well-perfused. No calf tenderness. No peripheral edema. SKIN: Warm, dry, no tenting, b/l venous stasis changes lower extrmeities Laboratory Results - last 24 hr 10/04/19 10/04/19 10/04/19 09:32 09:32 09:32 WBC 8.5 RBC 3.62 L Hgb 10.4 L Hct 32.3 L MCV 89.2 MCH 28.7 MCHC 32.1 RDW 16.0 H Plt Count 167 MPV 8.5 Absolute Neuts (auto) 5.5 Neutrophils % 64.8 Lymphocytes % 18.6 Monocytes % 9.7 Eosinophils % 5.6 H Basophils % 1.3 Nucleated RBC % 0 PT with INR INR VBG pH POC VBG pCO2 POC VBG pO2 VBG HCO3 VBG O2 Sat ([place]) VBG Base Excess Sodium 139 Potassium 5.0 Chloride 106 Carbon Dioxide 28 Anion Gap 5 L BUN 15.6 Creatinine 1.0 Est GFR (CKD-EPI)AfAm 82.60 Est GFR (CKD-EPI)NonAf 71.27 Random Glucose 330 H Lactic Acid Calcium 9.0 Total Bilirubin 0.5 AST 20 ALT 22 Alkaline Phosphatase 137 H Creatine Kinase 58 Troponin I 0.02 B-Natriuretic Peptide 2036.2 H Total Protein 7.0 Albumin 2.9 L Urine Color Urine Appearance Urine pH Ur Specific [place] Urine Protein Urine Glucose (UA) Urine Ketones Urine Blood Urine Nitrite Urine Bilirubin Urine Urobilinogen Ur Leukocyte Esterase Urine WBC (Auto) Urine RBC (Auto) U Epithel Cells (Auto) Urine Bacteria (Auto) Urine Yeast (Auto) 10/04/19 10/04/19 10/04/19 09:32 09:32 09:37 WBC RBC Hgb Hct MCV MCH MCHC RDW Plt Count MPV Absolute Neuts (auto) Neutrophils % Lymphocytes % Monocytes % Eosinophils % Basophils % Nucleated RBC % PT with INR 17.20 H INR 1.45 H VBG pH POC VBG pCO2 POC VBG pO2 VBG HCO3 VBG O2 Sat ([place]) VBG Base Excess Sodium Potassium Chloride Carbon Dioxide Anion Gap BUN Creatinine Est GFR (CKD-EPI)AfAm Est GFR (CKD-EPI)NonAf Random Glucose Lactic Acid 0.9 Calcium Total Bilirubin AST ALT Alkaline Phosphatase Creatine Kinase Troponin I B-Natriuretic Peptide Total Protein Albumin Urine Color Red Urine Appearance Bloody Urine pH No Result Required. Ur Specific [place] No Result Required. Urine Protein No Result Required. Urine Glucose (UA) No Result Required. Urine Ketones No Result Required. Urine Blood No Result Required. Urine Nitrite No Result Required. Urine Bilirubin No Result Required. Urine Urobilinogen No Result Required. Ur Leukocyte Esterase No Result Required. Urine WBC (Auto) 5-10 Urine RBC (Auto) >100 U Epithel Cells (Auto) Few Urine Bacteria (Auto) Rare Urine Yeast (Auto) Present 10/04/19 09:37 WBC RBC Hgb Hct MCV MCH MCHC RDW Plt Count MPV Absolute Neuts (auto) Neutrophils % Lymphocytes % Monocytes % Eosinophils % Basophils % Nucleated RBC % PT with INR INR VBG pH 7.27 L POC VBG pCO2 61.8 H POC VBG pO2 76.8 H VBG HCO3 27.3 VBG O2 Sat ([place]i) 92.4 H VBG Base Excess 0 Sodium Potassium Chloride Carbon Dioxide Anion Gap BUN Creatinine Est GFR (CKD-EPI)AfAm Est GFR (CKD-EPI)NonAf Random Glucose Lactic Acid Calcium Total Bilirubin AST ALT Alkaline Phosphatase Creatine Kinase Troponin I B-Natriuretic Peptide Total Protein Albumin Urine Color Urine Appearance Urine pH Ur Specific [place] Urine Protein Urine Glucose (UA) Urine Ketones Urine Blood Urine Nitrite Urine Bilirubin Urine Urobilinogen Ur Leukocyte Esterase Urine WBC (Auto) Urine RBC (Auto) U Epithel Cells (Auto) Urine Bacteria (Auto) Urine Yeast (Auto) ASSESSMENT/PLAN: Acute hypoxic respiratory distress Hematuria s/p recent TURP and Hemorrhagic MRSA Cystitis Hyperglycemia Type 2 DM history CAD s/p CABG, not in ACS Hx of HTN Hx of HLD Hx of COPD, not in exacerbation --Imaging reviewed with blunting of CPA, cephalizaiton of vessels, possible atelectasis, cannot r/o infiltrative disease --CT scan to r/o air bronchograms and r/o PE --Lasix 40mg IVP once; pending CT can continue scheduled --Discontinue BiPap as patient cannot self-extubate --NC 3-4L; SpO2 >90% maintain --Hold off ABX as only SIRS 1/ without source; urine with only 5-10 WBC only colonization given extensive hospital course with arguello and cystoscopy w/i past month --Monitor Urine output --Daily weights --Will keep NPO given tenuous respiratory status; re-evaluate for AM tomorrow --Monitor H/H given hematuria --Previously urology was seeing patient and signed off for outpatient f/u --Corrected home medications as reports wrong: Levemir 24U AM with 2U ACLD and ISS breakthrough --Gave Novolog 8U once due to hyperglycemia to 300's --BGM ACHS --Continue rest of home medications as above FEN: Fluids: Avoid; active diuresis Electrolyte abnormalities: None Nutrition: NPO given resp. status PPX: DVT - SCDs GI - Not indicated Dispo: Admit M/S Case discussed with Dr. Lorin Grubbs, DO - IM PGy-3 Visit type - Emergency Visit Emergency Visit: Yes ED Registration Date: 10/04/19 Care time: The patient presented to the Emergency Department on the above date and was hospitalized for further evaluation of their emergent condition. - New Patient This patient is new to me today: Yes Date on this admission: 10/04/19 - Critical Care Critical Care patient: No ATTENDING PHYSICIAN STATEMENT I saw and evaluated the patient. I reviewed the resident's note and discussed the case with the resident. I agree with the resident's findings and plan as documented. SUBJECTIVE: OBJECTIVE: ASSESSMENT AND PLAN:
[2019-10-04] MEDS ORDERED: FUROSEMIDE 40 MG/4 ML INJECTABLE VIAL ONE (12:47)
--- NOTE | 2019-10-04 13:46 | PN ---
Teaching Attending Note Name of Resident: Stevie Grubbs ATTENDING PHYSICIAN STATEMENT I saw and evaluated the patient. I reviewed the resident's note and discussed the case with the resident. I agree with the resident's findings and plan as documented. SUBJECTIVE: [facility]red from prison to evaluate shortness of breath OBJECTIVE: Vital Signs Temperature 97.8 F 10/04/19 12:28 Pulse Rate 61 10/04/19 12:28 Respiratory Rate 19 10/04/19 12:28 Blood Pressure 145/68 10/04/19 12:28 O2 Sat by Pulse Oximetry (%) 100 10/04/19 12:28 General: Elderly man, sick looking in respiratory distress HEENT; mucous membranes moist, no anemia Neck: No JVD, supple, no bruit, thyroid palpably normal, normal carotid pulsations. Chest: Patient is a respiratory distress, basal crepts CVS: S1-S2 regular no murmur/gallop/rub Abdomen: Non-distended, soft, bowel sounds present. Extremities: Bilateral chronic venous stasis changes poor circulation .no edema. , ASSURANCE MANAGER: Alert but confused grossly non-focal. CBC,CMP WBC 8.5 K/mm3 (4.0-10.0) 10/04/19 09:32 RBC 3.62 M/mm3 (4.00-5.60) L 10/04/19 09:32 Hgb 10.4 GM/dL (11.7-16.9) L 10/04/19 09:32 Hct 32.3 % (35.4-49) L 10/04/19 09:32 MCV 89.2 fl (80-96) 10/04/19 09:32 MCH 28.7 pg (25.7-33.7) 10/04/19 09:32 MCHC 32.1 g/dl (32.0-35.9) 10/04/19 09:32 RDW 16.0 % (11.9-15.9) H 10/04/19 09:32 Plt Count 167 K/MM3 (134-434) 10/04/19 09:32 MPV 8.5 fl (7.5-11.1) 10/04/19 09:32 Absolute Neuts (auto) 5.5 K/mm3 (1.5-8.0) 10/04/19 09:32 Neutrophils % 64.8 % (42.8-82.8) 10/04/19 09:32 Lymphocytes % 18.6 % (8-40) 10/04/19 09:32 Monocytes % 9.7 % (3.8-10.2) 10/04/19 09:32 Eosinophils % 5.6 % (0-4.5) H 10/04/19 09:32 Basophils % 1.3 % (0-2.0) 10/04/19 09:32 Nucleated RBC % 0 % (0-0) 10/04/19 09:32 Sodium 139 mmol/L (136-145) 10/04/19 09:32 Potassium 5.0 mmol/L (3.5-5.1) 10/04/19 09:32 Chloride 106 mmol/L (98-107) 10/04/19 09:32 Carbon Dioxide 28 mmol/L (21-32) 10/04/19 09:32 Anion Gap 5 MMOL/L (8-16) L 10/04/19 09:32 BUN 15.6 mg/dL (7-18) 10/04/19 09:32 Creatinine 1.0 mg/dL (0.55-1.3) 10/04/19 09:32 Est GFR (CKD-EPI)AfAm 82.60 10/04/19 09:32 Est GFR (CKD-EPI)NonAf 71.27 10/04/19 09:32 Random Glucose 330 mg/dL (74-106) H 10/04/19 09:32 Lactic Acid 0.9 mmol/L (0.4-2.0) 10/04/19 09:37 Calcium 9.0 mg/dL (8.5-10.1) 10/04/19 09:32 Total Bilirubin 0.5 mg/dL (0.2-1) 10/04/19 09:32 AST 20 U/L (15-37) 10/04/19 09:32 ALT 22 U/L (13-61) 10/04/19 09:32 Alkaline Phosphatase 137 U/L (45-117) H 10/04/19 09:32 Creatine Kinase 58 U/L (26-308) 10/04/19 09:32 Troponin I 0.02 ng/ml (0.00-0.05) 10/04/19 09:32 B-Natriuretic Peptide 2036.2 pg/ml (5-450) H 10/04/19 09:32 Total Protein 7.0 g/dl (6.4-8.2) 10/04/19 09:32 Albumin 2.9 g/dl (3.4-5.0) L 10/04/19 09:32 Chest x-ray: No acute infiltrate CP angles are not visible. CT Chest: B/L moderte Pleural effusion with atelactasis no PE EKG: Normal sinus rhythm at [address]-T changes all intervals are normal ASSESSMENT AND PLAN: 79 years old male recently discharged from [facility] on October 02, 2019 after treated for DKA, obstructive uropathy underwent TURP, discharged on indwelling Strong catheter, treated for hemorrhagic cystitis urine culture grew MRSA patient was DC on doxycycline, today transferred from prison with complaint of respiratory distress, as per prison chart chest x-ray shows right lower lobe infiltrate/effusion patient is transferred to ED for further management, initial work-up in ED does not show any pleural effusion/pulmonary congestion/pneumonia, patient has has respiratory distress initially put on BiPAP blood partially resolved symptoms patient needs further work-up to establish a diagnosis including CT chestperformed that shows b/L moderate Pulmonary effusion. Home Medications Medication Instructions Recorded Atorvastatin Ca [Lipitor] 40 mg PO DAILY 05/06/19 Ezetimibe 10 mg PO HS 05/06/19 Nebivolol HCl [Bystolic] 2.5 mg PO HS 05/06/19 Compression Socks, Medium [Futuro 1 each MC DAILY #1 each 09/06/19 Restoring] Escitalopram Oxalate [Lexapro -] 10 mg PO DAILY tablet 09/06/19 Insulin Aspart [Novolog] 2 unit SQ ACLD #1 cartridge 09/06/19 Insulin Sliding Scale [Novolog 1 vial SQ ACHS units 09/06/19 Vial Sliding Scale -] Tamsulosin HCl 0.4 mg PO BID #60 capsule 09/06/19 Insulin (Levemir) [Levemir Vial] 24 units SQ DAILY 10/04/19 Impression: respiratory distress needs further evaluation Problem List - Problems (1) Respiratory distress Assessment/Plan: Transfer from prison with respiratory distress no obvious etiology BNP is at baseline high, normal CBC, chest x-ray, no congestion, CT chest R/O PE PE , B/L modertae effusion, pulmonary consult, patient is on BiPAP needs appropriate disposition either telemetry with BiPAP or ICU. At present patient is not hypoxic, but retaining CO2 F/U magnesium and phosphate, Procalcitonin, CT shows B/L pleural effusion, Duoneb PRN , IV lasix 40 mg BID Problems reviewed: Yes Code(s): R06.03 - ACUTE RESPIRATORY DISTRESS (2) Hematuria Assessment/Plan: He status post TURP and hemorrhagic cystitis on doxycycline for MRSA UTI, continue same repeat urine culture, serial H&H and if persistent hematuria consider consult. Problems reviewed: Yes Code(s): R31.9 - HEMATURIA, UNSPECIFIED (3) Type 2 diabetes mellitus Assessment/Plan: Hypoglycemia type 2 diabetes mellitus resume prison insulin regimen optimize glycemic control. Problems reviewed: Yes Code(s): E11.9 - TYPE 2 DIABETES MELLITUS WITHOUT COMPLICATIONS (4) CAD (coronary artery disease) Assessment/Plan: Status post CABG, at present, troponin is negative, patient is congestive, no acute EKG resume all her home medications Problems reviewed: Yes Code(s): I25.10 - ATHSCL HEART DISEASE OF [place] CORONARY ARTERY W/O ANG PCTRS (5) Hypertension Assessment/Plan: Stable resume all home medications Problems reviewed: Yes Code(s): I10 - ESSENTIAL (PRIMARY) HYPERTENSION (6) Hyperlipidemia Assessment/Plan: Resume statin Problems reviewed: Yes Code(s): E78.5 - HYPERLIPIDEMIA, UNSPECIFIED (7) COPD (chronic obstructive pulmonary disease) Assessment/Plan: As present no wheezes continue DuoNeb every 6 hours Problems reviewed: Yes Code(s): J44.9 - CHRONIC OBSTRUCTIVE PULMONARY DISEASE, UNSPECIFIED (8) Chronic venous stasis Assessment/Plan: Continue foot care Problems reviewed: Yes Code(s): I87.8 - OTHER SPECIFIED DISORDERS OF VEINS
--- NOTE | 2019-10-04 13:51 | EKG ---
Test Reason : Blood Pressure : / mmHG Vent. Rate : 070 BPM Atrial Rate : 070 BPM P-R Int : 132 ms QRS Dur : 078 ms QT Int : 412 ms P-R-T Axes : 002 046 045 degrees QTc Int : 444 ms NORMAL SINUS RHYTHM NORMAL ECG WHEN COMPARED WITH ECG OF 01-SEP-2019 21:33, BORDERLINE CRITERIA FOR INFERIOR INFARCT ARE NO LONGER PRESENT NONSPECIFIC T WAVE ABNORMALITY NO LONGER EVIDENT IN LATERAL LEADS Confirmed by COOPER WILLS MD ([id number]) on 10/04/2019 1:50:45 PM Referred By: Confirmed By:COOPER WILLS MD
[2019-10-04] MEDS ORDERED: INSULIN SLIDING SCALE (NOVOLOG) 1 VIAL SQ SCH ×2 (16:30)
[2019-10-04] MEDS: INSULIN (NOVOLOG) ASPART 100 UNITS/ML 10ML VIAL SQ SCH (17:33)
[2019-10-04] MEDS: FUROSEMIDE 40 MG/4 ML INJECTABLE VIAL IVPUSH SCH (17:34)
[2019-10-04] MEDS: INSULIN SLIDING SCALE (NOVOLOG) 1 VIAL SQ SCH ×2 (17:34→21:53)
[2019-10-04 17:49] LABS: MAGNESIUM 2.4 mg/dL (1.8-2.4)
[2019-10-04] MEDS: ATORVASTATIN CA 40 MG TABLET (FP) PO SCH (21:51)
[2019-10-04] MEDS: TAMSULOSIN HCL 0.4 MG CAP PO SCH (21:51)
[2019-10-04] MEDS: NEBIVOLOL 2.5 MG TABLET (FP) PO SCH (21:51)
[2019-10-04] MEDS: EZETIMIBE 10 MG TABLET (FP) PO SCH (21:57)
[2019-10-05] MEDS: INSULIN SLIDING SCALE (NOVOLOG) 1 VIAL SQ SCH ×4 (06:07→21:30)
[2019-10-05] MEDS: INSULIN (LEVEMIR) 100 UNITS/ML UNITS SQ SCH (06:09)
[2019-10-05] MEDS: FUROSEMIDE 40 MG/4 ML INJECTABLE VIAL IVPUSH SCH ×2 (06:12→14:26)
--- NOTE | 2019-10-05 07:58 | PN ---
Progress Note, Physician Chief Complaint: Patient is saturating well more alert, still on BiPAP. - Current Medication List Current Medications: Active Medications Atorvastatin Calcium (Lipitor -) 40 mg PO HS [facility] Last Admin: 10/04/19 21:51 Dose: 40 mg Ezetimibe (Zetia -) 10 mg PO HS [facility] Last Admin: 10/04/19 21:57 Dose: 10 mg Escitalopram Oxalate (Lexapro -) 10 mg PO DAILY DAISHA Furosemide (Lasix Injection -) 40 mg IVPUSH BIDLASIX [facility] Last Admin: 10/05/19 06:12 Dose: 40 mg Insulin Aspart (Novolog Vial) 2 units SQ ACLD [facility] Last Admin: 10/04/19 17:33 Dose: Not Given Insulin Aspart (Novolog Vial Sliding Scale -) 1 vial SQ [facility]; Protocol Last Admin: 10/05/19 06:07 Dose: 4 units Insulin Detemir (Levemir Vial) 24 units SQ DAILY@0700 [facility] Last Admin: 10/05/19 06:09 Dose: 24 units Nebivolol (Bystolic -) 2.5 mg PO [facility] Last Admin: 10/04/19 21:51 Dose: 2.5 mg Tamsulosin HCl (Flomax -) 0.4 mg PO BID@0830,2200 [facility] Last Admin: 10/04/19 21:51 Dose: 0.4 mg - Objective Vital Signs: Vital Signs Temperature 97.7 F 10/05/19 07:23 Pulse Rate 65 10/05/19 07:23 Respiratory Rate 19 10/05/19 07:23 Blood Pressure 130/77 10/05/19 07:23 O2 Sat by Pulse Oximetry (%) 100 10/05/19 01:00 General: Elderly man, sick looking in respiratory distress on BiPAP HEENT; mucous membranes moist, no anemia Neck: No JVD, supple, no bruit, thyroid palpably normal, normal carotid pulsations. Chest: Improving respiratory distress, basal crepts CVS: S1-S2 regular no murmur/gallop/rub Abdomen: Non-distended, soft, bowel sounds present. Extremities: Bilateral chronic venous stasis changes poor circulation . 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 Labs: CBC, BMP 10/05/19 06:57 10/05/19 06:57 Problem List - Problems (1) Respiratory distress Assessment/Plan: Patient presented with respiratory failure due to decompensated congestive heart failure, improving on IV Lasix and BiPAP will wean off from BiPAP, Lasix 40 mg IV access. Code(s): R06.03 - ACUTE RESPIRATORY DISTRESS (2) Hematuria Assessment/Plan: He status post TURP and hemorrhagic cystitis on doxycycline for MRSA UTI, continue same repeat urine culture, serial H&H and if persistent hematuria consider consult. Problems reviewed: Yes Code(s): R31.9 - HEMATURIA, UNSPECIFIED (3) Type 2 diabetes mellitus Assessment/Plan: Hypoglycemia type 2 diabetes mellitus resume intermediate insulin regimen optimize glycemic control. Problems reviewed: Yes Code(s): E11.9 - TYPE 2 DIABETES MELLITUS WITHOUT COMPLICATIONS (4) CAD (coronary artery disease) Assessment/Plan: Status post CABG, at present, troponin is negative, no acute EKG resume all her home medications Code(s): I25.10 - ATHSCL HEART DISEASE OF [place] CORONARY ARTERY W/O ANG PCTRS (5) Hypertension Assessment/Plan: Stable resume all home medications Code(s): I10 - ESSENTIAL (PRIMARY) HYPERTENSION (6) Hyperlipidemia Assessment/Plan: Resume statin Code(s): E78.5 - HYPERLIPIDEMIA, UNSPECIFIED (7) COPD (chronic obstructive pulmonary disease) Assessment/Plan: As present no wheezes continue DuoNeb every 6 hours Code(s): J44.9 - CHRONIC OBSTRUCTIVE PULMONARY DISEASE, UNSPECIFIED (8) Chronic venous stasis Assessment/Plan: Continue foot care Code(s): I87.8 - OTHER SPECIFIED DISORDERS OF VEINS (9) Respiratory failure with hypoxia Assessment/Plan: Due to CHF exacerbation improving on BiPAP. Problems reviewed: Yes Code(s): J96.91 - RESPIRATORY FAILURE, UNSPECIFIED WITH HYPOXIA Qualifiers: Chronicity: acute Qualified Code(s): J96.01 - Acute respiratory failure with hypoxia
[2019-10-05 08:28] LABS: HEMOGLOBIN 9.5 GM/dL (11.7-16.9); MCH 28.7 pg (25.7-33.7); MCHC 32.9 g/dl (32.0-35.9); MEAN CELL VOLUME 87.4 fl (80-96); MEAN PLT VOLUME 8.4 fl (7.5-11.1); PLATELET COUNT 150 K/MM3 (134-434); RBC 3.32 M/mm3 (4.00-5.60); RDW 15.3 % (11.9-15.9); WHITE BLOOD COUNT 7.4 K/mm3 (4.0-10.0)
[2019-10-05 08:43] LABS: ALBUMIN 2.4 g/dl (3.4-5.0); BILIRUBIN,TOTAL 0.5 mg/dL (0.2-1); BLOOD UREA NITROGEN 14.1 mg/dL (7-18); CALCIUM 8.9 mg/dL (8.5-10.1); MAGNESIUM 1.9 mg/dL (1.8-2.4); PHOSPHOROUS 3.2 mg/dL (2.5-4.9); POTASSIUM 3.7 mmol/L (3.5-5.1); TOT PROT 5.7 g/dl (6.4-8.2)
[2019-10-05] MEDS ORDERED: ESCITALOPRAM OXALATE 10 MG TABLET (FP) PO SCH (10:00)
[2019-10-05] MEDS: TAMSULOSIN HCL 0.4 MG CAP PO SCH ×2 (10:17→21:30)
[2019-10-05] MEDS: INSULIN (NOVOLOG) ASPART 100 UNITS/ML 10ML VIAL SQ SCH ×2 (11:06→16:59)
[2019-10-05] MEDS ORDERED: INSULIN (NOVOLOG) ASPART 100 UNITS/ML 10ML VIAL ONE (16:54)
[2019-10-05] MEDS: FERROUS SO4 325 MG TABLET (FP) PO SCH (18:10)
[2019-10-05] MEDS: EZETIMIBE 10 MG TABLET (FP) PO SCH (21:30)
[2019-10-05] MEDS: ATORVASTATIN CA 40 MG TABLET (FP) PO SCH (21:30)
[2019-10-05] MEDS: NEBIVOLOL 2.5 MG TABLET (FP) PO SCH (21:31)
[2019-10-06] MEDS: FUROSEMIDE 40 MG/4 ML INJECTABLE VIAL IVPUSH SCH ×2 (06:01→14:19)
[2019-10-06] MEDS: INSULIN (LEVEMIR) 100 UNITS/ML UNITS SQ SCH (06:02)
[2019-10-06] MEDS: INSULIN SLIDING SCALE (NOVOLOG) 1 VIAL SQ SCH ×4 (06:04→21:49)
[2019-10-06] MEDS ORDERED: INSULIN (NOVOLOG) ASPART 100 UNITS/ML 10ML VIAL ONE (06:56)
[2019-10-06 09:44] LABS: BASO % 1.8 % (0-2.0); EOS % 6.4 % (0-4.5); HEMATOCRIT 29.4 % (35.4-49); HEMOGLOBIN 9.7 GM/dL (11.7-16.9); LYMPH % 13.9 % (8-40); MCH 28.6 pg (25.7-33.7); MCHC 32.8 g/dl (32.0-35.9); MEAN PLT VOLUME 8.1 fl (7.5-11.1); MONO % 14.1 % (3.8-10.2); NEUT % 63.8 % (42.8-82.8); PLATELET COUNT 153 K/MM3 (134-434); RBC 3.38 M/mm3 (4.00-5.60); RDW 15.3 % (11.9-15.9); WHITE BLOOD COUNT 7.9 K/mm3 (4.0-10.0)
[2019-10-06] MEDS: FERROUS SO4 325 MG TABLET (FP) PO SCH (09:47)
[2019-10-06] MEDS: TAMSULOSIN HCL 0.4 MG CAP PO SCH ×2 (09:48→21:49)
[2019-10-06 10:08] LABS: BLOOD UREA NITROGEN 17.5 mg/dL (7-18); CALCIUM 8.9 mg/dL (8.5-10.1); CREATININE 1.2 mg/dL (0.55-1.3); POTASSIUM 3.6 mmol/L (3.5-5.1)
[2019-10-06] MEDS: INSULIN (NOVOLOG) ASPART 100 UNITS/ML 10ML VIAL SQ SCH ×2 (11:45→17:17)
--- NOTE | 2019-10-06 11:54 | PN ---
Progress Note, Physician Chief Complaint: Patient is saturating well more alert, off BiPAP asking for rangers not in distress - Current Medication List Current Medications: Active Medications Atorvastatin Calcium (Lipitor -) 40 mg PO [facility] Last Admin: 10/05/19 21:30 Dose: 40 mg Ezetimibe (Zetia -) 10 mg PO HS [facility] Last Admin: 10/05/19 21:30 Dose: 10 mg Ferrous Sulfate (Feosol -) 325 mg PO DAILY [facility] Last Admin: 10/06/19 09:47 Dose: 325 mg Furosemide (Lasix Injection -) 40 mg IVPUSH BIDLASIX [facility] Last Admin: 10/06/19 06:01 Dose: 40 mg Insulin Aspart (Novolog Vial) 2 units SQ ACLD [facility] Last Admin: 10/06/19 11:45 Dose: 2 units Insulin Aspart (Novolog Vial Sliding Scale -) 1 vial SQ ACHS [facility]; Protocol Last Admin: 10/06/19 11:45 Dose: 4 units Insulin Detemir (Levemir Vial) 24 units SQ DAILY@0700 [facility] Last Admin: 10/06/19 06:02 Dose: 24 units Nebivolol (Bystolic -) 2.5 mg PO [facility] Last Admin: 10/05/19 21:31 Dose: 2.5 mg Tamsulosin HCl (Flomax -) 0.4 mg PO BID@0830,2200 [facility] Last Admin: 10/06/19 09:48 Dose: 0.4 mg - Objective Vital Signs: Vital Signs Temperature 98.4 F 10/06/19 05:13 Pulse Rate 86 10/06/19 08:05 Respiratory Rate 22 H 10/06/19 05:13 Blood Pressure 126/76 10/06/19 05:13 O2 Sat by Pulse Oximetry (%) 96 10/06/19 08:05 General: Elderly man, more alert, off BiPAP saturating well on nasal ooking in respiratory distress HEENT; mucous membranes moist, no anemia Neck: No JVD, supple, no bruit, thyroid palpably normal, normal carotid pulsations. Chest: Patient is a respiratory distress, basal crepts CVS: S1-S2 regular no murmur/gallop/rub Abdomen: Non-distended, soft, bowel sounds present. Extremities: Bilateral chronic venous stasis changes poor circulation .no edema. 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 Labs: CBC, BMP 10/06/19 09:15 10/06/19 09:15 INR, PTT INR 1.45 (0.83-1.09) H 10/04/19 09:32 Problem List - Problems (1) Respiratory distress Assessment/Plan: Presented with respiratory failure BNP at baseline initial chest x-ray does not show any pulmonary infiltrate or effusion no fever, WBC normal, considering high risk CT with PE protocol performed that showed bilateral moderate effusion no PE, patient was put on BiPAP subsequently switched to nasal cannula 3 L, patient saturating well respiratory status improved, on IV Lasix 40 mg twice daily follow BMP daily. Code(s): R06.03 - ACUTE RESPIRATORY DISTRESS (2) Hematuria Assessment/Plan: Patient is status post TURP and hemorrhagic cystitis completed doxycycline for MRSA UTI, clearing H&H remained stable so far no growth and urine culture.. Problems reviewed: Yes Code(s): R31.9 - HEMATURIA, UNSPECIFIED (3) Type 2 diabetes mellitus Assessment/Plan: Hypoglycemia type 2 diabetes mellitus resume [facility] insulin regimen optimize glycemic control. Problems reviewed: Yes Code(s): E11.9 - TYPE 2 DIABETES MELLITUS WITHOUT COMPLICATIONS (4) CAD (coronary artery disease) Assessment/Plan: Status post CABG, at present, troponin is negative, no acute EKG resume all her home medications Problems reviewed: Yes Code(s): I25.10 - ATHSCL HEART DISEASE OF [place] CORONARY ARTERY W/O ANG PCTRS (5) Hypertension Assessment/Plan: Stable resume all home medications Problems reviewed: Yes Code(s): I10 - ESSENTIAL (PRIMARY) HYPERTENSION (6) Hyperlipidemia Assessment/Plan: Resume statin Problems reviewed: Yes Code(s): E78.5 - HYPERLIPIDEMIA, UNSPECIFIED (7) COPD (chronic obstructive pulmonary disease) Assessment/Plan: As present no wheezes continue DuoNeb every 6 hours Problems reviewed: Yes Code(s): J44.9 - CHRONIC OBSTRUCTIVE PULMONARY DISEASE, UNSPECIFIED (8) Chronic venous stasis Assessment/Plan: Continue foot care Code(s): I87.8 - OTHER SPECIFIED DISORDERS OF VEINS (9) Respiratory failure with hypoxia Assessment/Plan: Due to diastolic heart failure on IV Lasix last hospitalization echo showed normal EF continue beta-blockers consider adding Aldactone follow BMP magnesium plus, right now patient is on nasal cannula BiPAP removed. Code(s): J96.91 - RESPIRATORY FAILURE, UNSPECIFIED WITH HYPOXIA Qualifiers: Chronicity: acute Qualified Code(s): J96.01 - Acute respiratory failure with hypoxia (10) Heart failure, diastolic, with acute decompensation Assessment/Plan: Improving on IV Lasix, repeat chest x-ray upright film, present echo shows normal ejection fraction, consider adding Aldactone on discharge. Problems reviewed: Yes Code(s): I50.33 - ACUTE ON CHRONIC DIASTOLIC (CONGESTIVE) HEART FAILURE (11) Dementia Assessment/Plan: Chronic no acute issues. Problems reviewed: Yes Code(s): F03.90 - UNSPECIFIED DEMENTIA WITHOUT BEHAVIORAL DISTURBANCE (12) Anemia Assessment/Plan: Chronic H&H stable continue p.o. iron. Problems reviewed: Yes Code(s): D64.9 - ANEMIA, UNSPECIFIED
[2019-10-06] MEDS: ATORVASTATIN CA 40 MG TABLET (FP) PO SCH (21:48)
[2019-10-06] MEDS: EZETIMIBE 10 MG TABLET (FP) PO SCH (21:48)
[2019-10-06] MEDS: NEBIVOLOL 2.5 MG TABLET (FP) PO SCH (21:49)
[2019-10-07] MEDS: INSULIN (LEVEMIR) 100 UNITS/ML UNITS SQ SCH (06:08)
[2019-10-07] MEDS: FUROSEMIDE 40 MG/4 ML INJECTABLE VIAL IVPUSH SCH (06:08)
[2019-10-07] MEDS: INSULIN SLIDING SCALE (NOVOLOG) 1 VIAL SQ SCH ×4 (06:09→22:10)
--- NOTE | 2019-10-07 09:06 | PN ---
Progress Note (short form) - Note Progress Note: Seen and examined; please see resident note for further discussion. Agree with their note including assessment and plan as outlined aside from as supplemented myself. Independently reviewed and verified all patel historical and PE findings as well as labs and imaging. Discussed at length with resident and consulting services. Aside from above no overnight events indicated VS, labs, imaging reviewed NAD AAO resting in bed NC AT EOMI PERRLA RRR s1/2 Lungs CTAB, w/ sym exp NT ND +BS CN2-12 wnl, no fnd Normal mood, appropriate behavior No new rashes or skin breakdown noted Trachea midline without lymphadenopathy A/P: <Hernesto Cook - Last Filed: 10/07/19 10:03> - Note Progress Note: HPI: Limited due to clinical condition. Pt without any respiratory distress noted. Vital Signs Temperature 98.9 F 10/07/19 06:00 Pulse Rate 61 10/07/19 06:00 Respiratory Rate 20 10/07/19 06:00 Blood Pressure 128/53 L 10/07/19 06:00 O2 Sat by Pulse Oximetry (%) 98 10/06/19 21:00 PE: Gen: NAD, awake, alert HEENT: ANTONIO, sclera anicteric, no conjunctival pallor MMM LUNG: Improved aeration to the bases b/l. No wheezes appreciated CARD: RRR no murmurs ABD: Soft, NT/ND, no guarding, normoactive BS : Hematuria noted today with clot formation. Strong continues to have steady drainage EXT: no edema, pulses strong b/l CBC, BMP 10/06/19 09:15 10/06/19 09:15 Microbiology 10/04/19 09:37 Blood - Peripheral Venous Blood Culture - Preliminary NO GROWTH OBTAINED AFTER 72 HOURS, INCUBATION TO CONTINUE FOR 2 DAYS. 10/04/19 09:37 Blood - Peripheral Venous Blood Culture - Preliminary NO GROWTH OBTAINED AFTER 72 HOURS, INCUBATION TO CONTINUE FOR 2 DAYS. 10/04/19 09:37 Urine - Urine Clean Catch Urine Culture - Final Yeast Like Organism Active Medications Atorvastatin Calcium (Lipitor -) 40 mg PO HS DAISHA Last Admin: 10/06/19 21:48 Dose: 40 mg Ezetimibe (Zetia -) 10 mg PO HS DAISHA Last Admin: 10/06/19 21:48 Dose: 10 mg Ferrous Sulfate (Feosol -) 325 mg PO DAILY [facility] Last Admin: 10/07/19 10:08 Dose: 325 mg Furosemide (Lasix -) 40 mg PO DAILY [facility] Last Admin: 10/07/19 10:08 Dose: 40 mg Insulin Aspart (Novolog Vial) 2 units SQ ACLD [facility] Last Admin: 10/07/19 11:55 Dose: 2 units Insulin Aspart (Novolog Vial Sliding Scale -) 1 vial SQ ACHS [facility]; Protocol Last Admin: 10/07/19 11:55 Dose: 8 units Insulin Detemir (Levemir Vial) 24 units SQ DAILY@0700 [facility] Last Admin: 10/07/19 06:08 Dose: 24 units Nebivolol (Bystolic -) 2.5 mg PO HS [facility] Last Admin: 10/06/19 21:49 Dose: 2.5 mg Tamsulosin HCl (Flomax -) 0.4 mg PO BID@0830,2200 [facility] Last Admin: 10/07/19 10:08 Dose: 0.4 mg Assessment and Plan: Acute hypoxic respiratory distress (improved) Hematuria s/p recent TURP and Hemorrhagic MRSA Cystitis Hyperglycemia Type 2 DM history CAD s/p CABG, not in ACS Hx of HTN Hx of HLD Hx of COPD, not in exacerbation --Lasix changed to 40mg PO qdaily due to improvement --Monitor weights --Given hematuria with clot formation will recall Urology --H/H remains stable at this time --Continue Iron supplementation as well and stool softeners as needed --Levemir 24U AM with 2U ACLD and ISS breakthrough to continue --BGM ACHS; BGM ranges 120-140's regularly; continue to monitor fingersticks --Continue rest of home medications as above FEN: Fluids: Avoid; active diuresis Electrolyte abnormalities: None Nutrition: Puree diet; diabetic and sodium controlled PPX: DVT - SCDs GI - Not indicated Left message for son Dago as he wanted and update on the care of his father. Left number to unit who can alert me to his callback. Dispo: Monitor M/S Case discussed with Dr. Joey Grubbs, DO - IM PGy-3 <Stevie Grubbs - Last Filed: 10/07/19 13:29>
[2019-10-07] MEDS: FERROUS SO4 325 MG TABLET (FP) PO SCH (10:08)
[2019-10-07] MEDS: FUROSEMIDE 40 MG TABLET (FP) PO SCH (10:08)
[2019-10-07] MEDS: TAMSULOSIN HCL 0.4 MG CAP PO SCH ×2 (10:08→22:10)
[2019-10-07] MEDS: INSULIN (NOVOLOG) ASPART 100 UNITS/ML 10ML VIAL SQ SCH ×2 (11:55→17:28)
--- NOTE | 2019-10-07 13:03 | CON.CARD ---
Consult Consult Specialty:: Cardiology Referred by:: Hospitalist Medicine Reason for Consultation:: Dyspnea - History of Present Illness Chief Complaint: Dyspnea History of Present Illness: 79 y/o/m with PMHx of IDDM, CAD s/p CABG, [place] in 1997, CHF, CKD, COPD, dementia presenting from [facility] due to increased work of breathing and tachypnea. Pt placed on BiPap and noted to have b/l pleural effusions on CXR. Pt is unable to provide history, however is alert to sponaneous stimuli. 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 Cardio/Vascular: Yes: CAD, HTN, Hyperlipdemia Pulmonary: Yes: Asthma, COPD Renal/: Yes: Renal Inusuff - Past Surgical History Past Surgical History: Yes: CABG, Joint Replacement (R hip ORIF) - Alcohol/Substance Use Hx Alcohol Use: No - Smoking History Smoking history: Never smoked Have you smoked in the past 12 months: No Aproximately how many cigarettes per day: 0 If you are a former smoker, when did you quit?: '96 - Social History Usual Living Arrangement: With Spouse ADL: Family Assistance History of Recent Travel: No Home Medications - Allergies Allergies/Adverse Reactions: Allergies Allergy/AdvReac Type Severity Reaction Status Date / Time No Known Allergies Allergy Verified 01/11/19 11:57 - Home Medications Home Medications: Ambulatory Orders Atorvastatin Ca [Lipitor] 40 mg PO DAILY 05/06/19 Ezetimibe 10 mg PO HS 05/06/19 Nebivolol HCl [Bystolic] 2.5 mg PO HS 05/06/19 Compression Socks, Medium [Futuro Restoring] 1 each MC DAILY #1 each 09/06/19 Escitalopram Oxalate [Lexapro -] 10 mg PO DAILY tablet 09/06/19 Insulin Aspart [Novolog] 2 unit SQ ACLD #1 cartridge 09/06/19 Insulin Sliding Scale [Novolog Vial Sliding Scale -] 1 vial SQ ACHS units 09/06 Tamsulosin HCl 0.4 mg PO BID #60 capsule 09/06/19 Insulin (Levemir) [Levemir Vial] 24 units SQ DAILY 10/04/19 Vital Signs: Vital Signs Temperature 98.9 F 10/07/19 06:00 Pulse Rate 61 10/07/19 06:00 Respiratory Rate 20 10/07/19 06:00 Blood Pressure 128/53 L 10/07/19 06:00 O2 Sat by Pulse Oximetry (%) 98 10/06/19 21:00 Constitutional: Yes: No Distress, Calm Neck: Yes: Supple Respiratory: Yes: Regular Gastrointestinal: Yes: Normal Bowel Sounds, Soft Cardiovascular: Yes: Regular Rate and Rhythm JVD: No Carotid Bruit: No Heart Sounds: Yes: S1, S2 Murmur: Yes: Systolic Murmur, Grade 1 Edema: No - Other Data Labs, Other Data: CBC, BMP 10/06/19 09:15 10/06/19 09:15 INR, PTT INR 1.45 (0.83-1.09) H 10/04/19 09:32 NSR @ 70 Ejection Fraction %: LVEF > or = 40 % Imaging - Results Chest X-ray: Report Reviewed (Congestion with left base ATX) Problem List - Problems (1) S/P CABG (coronary artery bypass graft) Code(s): Z95.1 - PRESENCE OF AORTOCORONARY BYPASS GRAFT (2) Heart failure, diastolic, with acute decompensation Code(s): I50.33 - ACUTE ON CHRONIC DIASTOLIC (CONGESTIVE) HEART FAILURE (3) Respiratory failure with hypoxia Code(s): J96.91 - RESPIRATORY FAILURE, UNSPECIFIED WITH HYPOXIA Qualifiers: Chronicity: acute Qualified Code(s): J96.01 - Acute respiratory failure with hypoxia (4) CAD (coronary artery disease) Code(s): I25.10 - ATHSCL HEART DISEASE OF [place] CORONARY ARTERY W/O ANG PCTRS Qualifiers: Coronary Disease-Associated Artery/Lesion type: [place] artery [place] vs. 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 Code(s): E11.22 - TYPE 2 DIABETES MELLITUS W DIABETIC CHRONIC KIDNEY DISEASE; N18.3 - CHRONIC KIDNEY DISEASE, STAGE 3 (MODERATE) (6) Hyperlipidemia Code(s): E78.5 - HYPERLIPIDEMIA, UNSPECIFIED Qualifiers: Hyperlipidemia type: pure hypercholesterolemia Qualified Code(s): E78.00 - Pure hypercholesterolemia, unspecified; E78.0 - Pure hypercholesterolemia (7) Hypertension Code(s): I10 - ESSENTIAL (PRIMARY) HYPERTENSION Qualifiers: Hypertension type: essential hypertension Qualified Code(s): I10 - Essential (primary) hypertension (8) Type 2 diabetes mellitus Code(s): E11.9 - TYPE 2 DIABETES MELLITUS WITHOUT COMPLICATIONS Assessment/Plan 10/04/[address]: Moderate bilateral pleural effusions with lower lobe ATX 09/10/2019 Echo: Mild cLVH with normal LV fxn, grade I diastolic dysfunction, normal RV size and fxn, tr MR 1. Acute in chronic hypoxic respiratory failure 2. Acute on chronic LV diastolic failure 3. ASHD S/P CABG, angina pectoris 4. HTN 5. Hypercholesterolemia 6. Type 2 DM poorly controlled 7. CKD PLAN: 1. IV diuresis with monitor diuretic response, renal fxn and electrolytes 2. Continue bronchodilators, O2 as needed 3. Continue Bystolic 2.5 qd, Zetia 10 qd, Lipitor 40 qd 4. DVT and GI prophylaxis 5. Thank you for consultative opportunity
[2019-10-07] MEDS: NEBIVOLOL 2.5 MG TABLET (FP) PO SCH (22:09)
[2019-10-07] MEDS: EZETIMIBE 10 MG TABLET (FP) PO SCH (22:10)
[2019-10-07] MEDS: ATORVASTATIN CA 40 MG TABLET (FP) PO SCH (22:10)
[2019-10-08] MEDS: INSULIN (LEVEMIR) 100 UNITS/ML UNITS SQ SCH (06:08)
[2019-10-08] MEDS: INSULIN SLIDING SCALE (NOVOLOG) 1 VIAL SQ SCH ×4 (06:13→21:59)
[2019-10-08 08:36] LABS: HEMATOCRIT 32.6 % (35.4-49); HEMOGLOBIN 10.5 GM/dL (11.7-16.9); MCH 28.2 pg (25.7-33.7); MCHC 32.3 g/dl (32.0-35.9); MEAN CELL VOLUME 87.3 fl (80-96); MEAN PLT VOLUME 8.6 fl (7.5-11.1); PLATELET COUNT 169 K/MM3 (134-434); RBC 3.73 M/mm3 (4.00-5.60); RDW 14.9 % (11.9-15.9); WHITE BLOOD COUNT 7.6 K/mm3 (4.0-10.0)
[2019-10-08 09:09] LABS: BLOOD UREA NITROGEN 18.5 mg/dL (7-18); CALCIUM 8.7 mg/dL (8.5-10.1); POTASSIUM 3.9 mmol/L (3.5-5.1)
[2019-10-08] MEDS: FERROUS SO4 325 MG TABLET (FP) PO SCH (10:14)
[2019-10-08] MEDS: ENALAPRIL MALEATE 2.5 MG TABLET (FP) PO SCH (10:14)
[2019-10-08] MEDS: FUROSEMIDE 40 MG TABLET (FP) PO SCH (10:14)
[2019-10-08] MEDS: CLOPIDOGREL BISULFATE 75 MG TABLET (FP) PO SCH (10:15)
[2019-10-08] MEDS: TAMSULOSIN HCL 0.4 MG CAP PO SCH ×2 (10:15→22:00)
--- NOTE | 2019-10-08 10:33 | CON.PULM ---
Consult Consult Specialty:: PULM/CCM Referred by:: Hospitalist Reason for Consultation:: SOB - History of Present Illness Chief Complaint: SOB History of Present Illness: 79 M, IDDM, CAD s/p CABG, [place] in 1997, CHF, CKD, COPD, and dementia. [facility] from [facility] due to increasing shortness of breath. In the ER he was placed on NIPPV support with good response. No apparent travel history or sick contacts. No reported fever or chills. No reported hemoptysis or night sweats. CTA: No PE / moderate bilateral pleural effusions with associated compressive atelectasis. 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 No: Cancer, O2 Dependent, Previously Intubated, Pulmonary Embolus, Pulmonary Fibrosis, Sleep Apnea Renal/: Yes: Renal Inusuff - Past Surgical History Past Surgical History: Yes: CABG, Joint Replacement (R hip ORIF) - Alcohol/Substance Use Hx Alcohol Use: No - Smoking History Smoking history: Never smoked Have you smoked in the past 12 months: No Aproximately how many cigarettes per day: 0 If you are a former smoker, when did you quit?: '96 - Social History Usual Living Arrangement: With Spouse ADL: Family Assistance History of Recent Travel: No Home Medications - Allergies Allergies/Adverse Reactions: Allergies Allergy/AdvReac Type Severity Reaction Status Date / Time No Known Allergies Allergy Verified 01/11/19 11:57 - Home Medications Home Medications: Ambulatory Orders Atorvastatin Ca [Lipitor] 40 mg PO DAILY 05/06/19 Ezetimibe 10 mg PO HS 05/06/19 Nebivolol HCl [Bystolic] 2.5 mg PO HS 05/06/19 Compression Socks, Medium [Futuro Restoring] 1 each MC DAILY #1 each 09/06/19 Escitalopram Oxalate [Lexapro -] 10 mg PO DAILY tablet 09/06/19 Insulin Aspart [Novolog] 2 unit SQ ACLD #1 cartridge 09/06/19 Insulin Sliding Scale [Novolog Vial Sliding Scale -] 1 vial SQ ACHS units 09/06 Tamsulosin HCl 0.4 mg PO BID #60 capsule 09/06/19 Insulin (Levemir) [Levemir Vial] 24 units SQ DAILY 10/04/19 Review of Systems Unable to obtain ROS, reason: Confused / cannot provide Physical Exam Vital Sings: Vital Signs Temperature 97.5 F L 10/08/19 05:55 Pulse Rate 63 10/08/19 05:55 Respiratory Rate 20 10/08/19 05:55 Blood Pressure 151/64 10/08/19 05:55 O2 Sat by Pulse Oximetry (%) 94 L 10/08/19 08:02 Constitutional: Yes: No Distress Eyes: Yes: Conjunctiva Clear, EOM Intact HENT: Yes: Atraumatic, Normocephalic Neck: Yes: Supple, Trachea Midline Cardiovascular: Yes: Regular Rate and Rhythm Respiratory: Yes: Cough, Diminished, Rales, Rhonchi. No: Accessory Muscle Use, SOB, SOB on Exertion, Stridor, Tachypnea, Wheezes ...Inspection: Yes: WNL ...Clubbing: No Gastrointestinal: Yes: Normal Bowel Sounds, Soft Renal/: Yes: WNL Musculoskeletal: Yes: WNL Extremities: Yes: WNL Edema: No Peripheral Pulses WNL: Yes Integumentary: Yes: WNL Neurological: Yes: Confusion Labs: CBC, BMP 10/08/19 07:30 10/08/19 07:30 Imaging - Results Chest X-ray: Report Reviewed, Image Reviewed Cat Scan: Report Reviewed, Image Reviewed Problem List - Problems (1) Pleural effusion Code(s): J90 - PLEURAL EFFUSION, NOT ELSEWHERE CLASSIFIED (2) Atelectasis of both lungs Code(s): J98.11 - ATELECTASIS (3) Anemia Code(s): D64.9 - ANEMIA, UNSPECIFIED (4) COPD (chronic obstructive pulmonary disease) Code(s): J44.9 - CHRONIC OBSTRUCTIVE PULMONARY DISEASE, UNSPECIFIED (5) Dementia Code(s): F03.90 - UNSPECIFIED DEMENTIA WITHOUT BEHAVIORAL DISTURBANCE (6) Heart failure, diastolic, with acute decompensation Code(s): I50.33 - ACUTE ON CHRONIC DIASTOLIC (CONGESTIVE) HEART FAILURE (7) Respiratory distress Code(s): R06.03 - ACUTE RESPIRATORY DISTRESS (8) S/P CABG (coronary artery bypass graft) Code(s): Z95.1 - PRESENCE OF AORTOCORONARY BYPASS GRAFT (9) CAD (coronary artery disease) Code(s): I25.10 - ATHSCL HEART DISEASE OF [place] CORONARY ARTERY W/O ANG PCTRS Qualifiers: Coronary Disease-Associated Artery/Lesion type: [place] artery [place] vs. transplanted heart: [place] heart Associated angina: without angina Qualified Code(s): I25.10 - Atherosclerotic heart disease of [place] coronary artery without angina pectoris (10) Hyperlipidemia Code(s): E78.5 - HYPERLIPIDEMIA, UNSPECIFIED Qualifiers: Hyperlipidemia type: pure hypercholesterolemia Qualified Code(s): E78.00 - Pure hypercholesterolemia, unspecified; E78.0 - Pure hypercholesterolemia (11) Hypertension Code(s): I10 - ESSENTIAL (PRIMARY) HYPERTENSION Qualifiers: Hypertension type: essential hypertension Qualified Code(s): I10 - Essential (primary) hypertension (12) Type 2 diabetes mellitus Code(s): E11.9 - TYPE 2 DIABETES MELLITUS WITHOUT COMPLICATIONS Assessment/Plan Lasix Would continue to monitor off ABX O2 as needed Aspiration precautions No indication for systemic steroids VTE prophylaxis Can follow weights for diuretic response Will follow DC planning Thank you. Dr Fernandez
[2019-10-08] MEDS: INSULIN (NOVOLOG) ASPART 100 UNITS/ML 10ML VIAL SQ SCH ×2 (11:49→17:03)
--- NOTE | 2019-10-08 17:32 | CONS ---
DATE OF CONSULTATION: DATE OF DICTATION: 10/08/2019 HISTORY: Patient is a 79-year-old male admitted via the emergency room on October 04, 2019, with shortness of breath and possible pneumonia. Patient has been having chronic, intermittent, gross hematuria. Two weeks earlier he underwent a cystoscopy and a TUR of bleeding prostate tissue. He developed several bouts of recurrent retention and now has a Strong catheter. The urine is blood tinged. The abdomen is soft. The patient's prostate procedure was performed on September 13, 2019. He denies any allergies. He has history of diabetes, high blood pressure, heart failure. His BUN and creatinine on admission were BUN 17.50, creatinine 1.2. A urine culture revealed yeast-like organisms. Blood cultures revealed no growth. The patient's PT is 17.2, INR 1.45. IMPRESSION: At present is a very friable 79-year-old diabetic, hypertensive, heart failure patient with possible pneumonia still with intermittent gross hematuria. We will continue with Strong drainage. We will irrigate bladder p.r.n. We will follow with you. Idris [id number]
--- NOTE | 2019-10-08 21:28 | PN ---
Physical Exam: SUBJECTIVE: Patient seen and examined; no new events overnight. Discussed events at length with Merly Correa regarding the placement. Plan to discuss with son. He is concerned about the blood in argu[place] which is improved with stable Hb. Glucose, especially compared to his last admission, is exceedingly improved. Noted that no family is bringing him outside sweets. His mentation remains the same as it was last time; no indication of followup with OP NSGY. 10 sys ROS done and negative aside from HPI OBJECTIVE: Vital Signs Period Temp Pulse Resp BP Sys/Poole Pulse Ox Last 24 Hr 97.5 F-98.4 F 59-66 20-20 110-151/50-83 94-95 VS, labs, imaging reviewed NAD, AAOx1, language and mental status communication barrier present [place] inserted; pink-tinged urine in bag with clear urine without clots in tube. No palpable bladder NT ND +BS CN2-12 wnl, no FND but poor overal participation in neurological exam due to underlying cognitive changes Lungs with minimal bilateral crackles, w/ sym exp HR wnl, s1/2+ Skin without rashes or breakdown. Not agitated; medically restricted insight and judgment, flat and somewhat confused affect. Neck with trachea midline, no lymphadenopathy, no JVD Laboratory Results - last 24 hr 10/07/19 10/08/19 10/08/19 22:08 06:12 07:30 WBC 7.6 RBC 3.73 L Hgb 10.5 L Hct 32.6 L MCV 87.3 MCH 28.2 MCHC 32.3 RDW 14.9 Plt Count 169 MPV 8.6 Sodium Potassium Chloride Carbon Dioxide Anion Gap BUN Creatinine Est GFR (CKD-EPI)AfAm Est GFR (CKD-EPI)NonAf POC Glucometer 128 185 Random Glucose Calcium 10/08/19 10/08/19 10/08/19 07:30 11:48 17:01 WBC RBC Hgb Hct MCV MCH MCHC RDW Plt Count MPV Sodium 138 Potassium 3.9 Chloride 100 Carbon Dioxide 33 H Anion Gap 5 L BUN 18.5 H Creatinine 1.0 Est GFR (CKD-EPI)AfAm 82.60 Est GFR (CKD-EPI)NonAf 71.27 POC Glucometer 206 225 Random Glucose 177 H Calcium 8.7 10/08/19 20:28 WBC RBC Hgb Hct MCV MCH MCHC RDW Plt Count MPV Sodium Potassium Chloride Carbon Dioxide Anion Gap BUN Creatinine Est GFR (CKD-EPI)AfAm Est GFR (CKD-EPI)NonAf POC Glucometer 217 Random Glucose Calcium Active Medications Generic Name Dose Route Start Last Admin Trade Name Freq PRN Reason Stop Dose Admin Atorvastatin Calcium 40 mg 10/04/19 22:00 10/07/19 22:10 Lipitor - PO 40 mg HS DAISHA Administration Clopidogrel Bisulfate 75 mg 10/08/19 10:00 10/08/19 10:15 Plavix - PO 75 mg DAILY DAISHA Administration Ezetimibe 10 mg 10/04/19 22:00 10/07/19 22:10 Zetia - PO 10 mg HS DAISHA Administration Enalapril Maleate 2.5 mg 10/08/19 10:00 10/08/19 10:14 Vasotec - PO 2.5 mg DAILY DAISHA Administration Ferrous Sulfate 325 mg 10/05/19 17:30 10/08/19 10:14 Feosol - PO 325 mg DAILY DAISHA Administration Furosemide 40 mg 10/07/19 10:00 10/08/19 10:14 Lasix - PO 40 mg DAILY DAISHA Administration Insulin Aspart 2 units 10/04/19 16:30 10/08/19 17:03 Novolog Vial SQ 2 units ACLD DAISHA Administration Insulin Aspart 1 vial 10/04/19 16:30 10/08/19 17:03 Novolog Vial Sliding Scale - SQ 6 units ACHS DAISHA Administration Protocol Insulin Detemir 24 units 10/05/19 07:00 10/08/19 06:08 Levemir Vial SQ 24 units DAILY@0700 DAISHA Administration Nebivolol 2.5 mg 10/04/19 22:00 10/07/19 22:09 Bystolic - PO 2.5 mg HS DAISHA Administration Polyethylene Glycol 17 gm 10/08/19 15:52 Miralax (For Daily Use) - PO DAILY PRN CONSTIPATION Tamsulosin HCl 0.4 mg 10/04/19 22:00 10/08/19 10:15 Flomax - PO 0.4 mg BID@0830,2200 DAISHA Administration ASSESSMENT/PLAN: Patient presents for near-resolved HFpEF exacerbation; he has 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 In addition he had hemorrhagic cystitis on last admission with 2x cystoscopy and resolution of all bleeds with discontinuation of his home AC [facility]. He is on tamsulosin for BPH and had obstructions secondary to clot formation that was relieved in the last admission with CBI and the aformentioned procedures. he is hemodynamically stable and weanable. Changing to PO Lasix in anticipation of DC and will clear with subspecialty services. Likely dispo back to [facility] in 24-48 hours. Problems include: -Acute Respiratory Failure (resolved) -HFpEF Exacerbation (40 PO QD, check mg and k and the AM and ensure close CV followup; doesn't need evidence-based BB or AMBER/ARB due to no mod to sig reduction in LVEF. Euvolemic on exam. Titrate lasix PRN and continue with fluid and salt restriction. Monitor Is and Os and QD weights as best as attainable. -Uncontrolled DM with hyperglycemia (This represents a marked improvement over his baseline reflected on his last admission though the values could still be improved. He is prone to hypoglycemia and his difficult to control sugars have proved problematic in the past. Continue current medications and fsg checks; may uptitrate mealtime tomorrow if clear patterns emerge) -Hematuria (Counts are stable; monitor. On plavix with CV renewing-was held last admission due to remote time from stent with ongoing hematuria. No bleeding since readding. CV following. Call uro prior to DC but this should not hold the DC) -CAD s/p CABG -Hx HTN -Hx HLD -Hx BPH ] Full Code Visit type - Emergency Visit Emergency Visit: Yes ED Registration Date: 10/04/19 Care time: The patient presented to the Emergency Department on the above date and was hospitalized for further evaluation of their emergent condition. - New Patient This patient is new to me today: No - Critical Care Critical Care patient: No
--- NOTE | 2019-10-08 21:36 | PN ---
Progress Note (short form) - Note Progress Note: HPI: Limited due to clinical condition. Pt without any respiratory distress noted, sleeping comfortably without NC. Vital Signs Temperature 98.3 F 10/08/19 19:17 Pulse Rate 65 10/08/19 19:17 Respiratory Rate 20 10/08/19 19:17 Blood Pressure 110/50 L 10/08/19 19:17 O2 Sat by Pulse Oximetry (%) 95 10/08/19 10:00 PE: Gen: NAD, awake, alert HEENT: ANTONIO, sclera anicteric, no conjunctival pallor MMM LUNG: Aearation to bases b/l. Poor inspiratory effort. No wheezes appreciated CARD: RRR no murmurs ABD: Soft, NT/ND, no guarding, normoactive BS : Hematuria clearing in argu[place] with clot formation in argu[place] with continued drainage EXT: no edema, pulses strong b/l CBC, BMP 10/08/19 07:30 10/08/19 07:30 Microbiology 10/04/19 09:37 Blood - Peripheral Venous Blood Culture - Preliminary NO GROWTH OBTAINED AFTER 72 HOURS, INCUBATION TO CONTINUE FOR 2 DAYS. 10/04/19 09:37 Blood - Peripheral Venous Blood Culture - Preliminary NO GROWTH OBTAINED AFTER 72 HOURS, INCUBATION TO CONTINUE FOR 2 DAYS. 10/04/19 09:37 Urine - Urine Clean Catch Urine Culture - Final Yeast Like Organism Active Medications Atorvastatin Calcium (Lipitor -) 40 mg PO HS [facility] Last Admin: 10/07/19 22:10 Dose: 40 mg Clopidogrel Bisulfate (Plavix -) 75 mg PO DAILY [facility] Last Admin: 10/08/19 10:15 Dose: 75 mg Ezetimibe (Zetia -) 10 mg PO HS [facility] Last Admin: 10/07/19 22:10 Dose: 10 mg Enalapril Maleate (Vasotec -) 2.5 mg PO DAILY [facility] Last Admin: 10/08/19 10:14 Dose: 2.5 mg Ferrous Sulfate (Feosol -) 325 mg PO DAILY [facility] Last Admin: 10/08/19 10:14 Dose: 325 mg Furosemide (Lasix -) 40 mg PO DAILY [facility] Last Admin: 10/08/19 10:14 Dose: 40 mg Insulin Aspart (Novolog Vial) 2 units SQ ACLD [facility] Last Admin: 10/08/19 17:03 Dose: 2 units Insulin Aspart (Novolog Vial Sliding Scale -) 1 vial SQ ACHS [facility]; Protocol Last Admin: 10/08/19 17:03 Dose: 6 units Insulin Detemir (Levemir Vial) 24 units SQ DAILY@0700 [facility] Last Admin: 10/08/19 06:08 Dose: 24 units Nebivolol (Bystolic -) 2.5 mg PO HS [facility] Last Admin: 10/07/19 22:09 Dose: 2.5 mg Polyethylene Glycol (Miralax (For Daily Use) -) 17 gm PO DAILY PRN PRN Reason: CONSTIPATION Tamsulosin HCl (Flomax -) 0.4 mg PO BID@0830,2200 [facility] Last Admin: 10/08/19 10:15 Dose: 0.4 mg Assessment and Plan: Acute hypoxic respiratory distress (improved) Hematuria s/p recent TURP and Hemorrhagic MRSA Cystitis Hyperglycemia Type 2 DM history CAD s/p CABG, not in ACS Hx of HTN Hx of HLD Hx of COPD, not in exacerbation --Continue Lasix 40mg qdaily PO --Continue daily weights for diuretic effect --Urology recalled due to hematuria --H/H improved today to 10.4 --Continue Ferrous sulfate PO with stool softeners PRN --Levemir 24U AM with 2U ACLD and ISS breakthrough to continue --BGM ACHS; BGM ranges 120-140's regularly; BGM ACHS --Continue rest of home medications as above --Discussed at length with son (Dago) about pt's improved H/H and that he did not require NIPPV for about 2 days. Discussed how anticipated discharge is back to [facility] FEN: Fluids: Avoid Electrolyte abnormalities: None Nutrition: Puree diet; diabetic and sodium controlled PPX: DVT - SCDs GI - Not indicated Dispo: Monitor M/S Case discussed with Dr. Joey Grubbs, DO - IM PGy-3
[2019-10-08] MEDS: NEBIVOLOL 2.5 MG TABLET (FP) PO SCH (22:00)
[2019-10-08] MEDS: EZETIMIBE 10 MG TABLET (FP) PO SCH (22:00)
[2019-10-08] MEDS: ATORVASTATIN CA 40 MG TABLET (FP) PO SCH (22:00)
[2019-10-09] MEDS: INSULIN (LEVEMIR) 100 UNITS/ML UNITS SQ SCH (06:03)
[2019-10-09] MEDS: INSULIN SLIDING SCALE (NOVOLOG) 1 VIAL SQ SCH ×4 (06:04→21:49)
[2019-10-09 08:22] LABS: HEMATOCRIT 29.9 % (35.4-49); HEMOGLOBIN 10.1 GM/dL (11.7-16.9); MCH 28.7 pg (25.7-33.7); MCHC 33.7 g/dl (32.0-35.9); MEAN CELL VOLUME 85.3 fl (80-96); MEAN PLT VOLUME 8.1 fl (7.5-11.1); PLATELET COUNT 170 K/MM3 (134-434); RDW 15.1 % (11.9-15.9); WHITE BLOOD COUNT 7.7 K/mm3 (4.0-10.0)
[2019-10-09 08:57] LABS: CALCIUM 8.9 mg/dL (8.5-10.1); POTASSIUM 3.7 mmol/L (3.5-5.1)
[2019-10-09] MEDS ORDERED: PT OWN MED DRAWER 7, Y5N ONE (09:18)
[2019-10-09] MEDS: CLOPIDOGREL BISULFATE 75 MG TABLET (FP) PO SCH (09:49)
[2019-10-09] MEDS: ENALAPRIL MALEATE 2.5 MG TABLET (FP) PO SCH (09:49)
[2019-10-09] MEDS: TAMSULOSIN HCL 0.4 MG CAP PO SCH ×2 (09:49→21:48)
[2019-10-09] MEDS: FUROSEMIDE 40 MG TABLET (FP) PO SCH (09:49)
[2019-10-09] MEDS: FERROUS SO4 325 MG TABLET (FP) PO SCH (09:49)
[2019-10-09] MEDS: POLYETHYLENE GLYCOL 3350 119 GM BTL PO PRN ×2 (09:52→21:54)
--- NOTE | 2019-10-09 11:01 | PN ---
Progress Note, Physician History of Present Illness: Hematuria in chronic indwelling Argu[place], no clots. - Current Medication List Current Medications: Active Medications Atorvastatin Calcium (Lipitor -) 40 mg PO [facility] Last Admin: 10/08/19 22:00 Dose: 40 mg Clopidogrel Bisulfate (Plavix -) 75 mg PO DAILY [facility] Last Admin: 10/09/19 09:49 Dose: 75 mg Ezetimibe (Zetia -) 10 mg PO [facility] Last Admin: 10/08/19 22:00 Dose: 10 mg Enalapril Maleate (Vasotec -) 2.5 mg PO DAILY [facility] Last Admin: 10/09/19 09:49 Dose: 2.5 mg Ferrous Sulfate (Feosol -) 325 mg PO DAILY [facility] Last Admin: 10/09/19 09:49 Dose: 325 mg Furosemide (Lasix -) 40 mg PO DAILY [facility] Last Admin: 10/09/19 09:49 Dose: 40 mg Insulin Aspart (Novolog Vial) 2 units SQ ACLD [facility] Last Admin: 10/08/19 17:03 Dose: 2 units Insulin Aspart (Novolog Vial Sliding Scale -) 1 vial SQ [facility]; Protocol Last Admin: 10/09/19 06:04 Dose: Not Given Insulin Detemir (Levemir Vial) 24 units SQ DAILY@0700 [facility] Last Admin: 10/09/19 06:03 Dose: 24 units Nebivolol (Bystolic -) 2.5 mg PO [facility] Last Admin: 10/08/19 22:00 Dose: 2.5 mg Polyethylene Glycol (Miralax (For Daily Use) -) 17 gm PO DAILY PRN PRN Reason: CONSTIPATION Last Admin: 10/09/19 09:52 Dose: 17 gm Tamsulosin HCl (Flomax -) 0.4 mg PO BID@0830,2200 [facility] Last Admin: 10/09/19 09:49 Dose: 0.4 mg - Objective Vital Signs: Vital Signs Temperature 98.3 F 10/09/19 09:10 Pulse Rate 63 10/09/19 06:00 Respiratory Rate 20 10/09/19 09:10 Blood Pressure 124/54 L 10/09/19 09:10 O2 Sat by Pulse Oximetry (%) 95 10/08/19 21:00 Constitutional: Yes: No Distress, Calm, Thin Neck: Yes: Supple Cardiovascular: Yes: Regular Rate and Rhythm Respiratory: Yes: Regular, Diminished Gastrointestinal: Yes: Soft, Hypoactive Bowel Sounds Genitourinary: Yes: Arguello Present, Hematuria Edema: No Labs: CBC, BMP 10/09/19 07:43 10/09/19 07:43 INR, PTT INR 1.45 (0.83-1.09) H 10/04/19 09:32 Problem List - Problems (1) S/P CABG (coronary artery bypass graft) Code(s): Z95.1 - PRESENCE OF AORTOCORONARY BYPASS GRAFT (2) Heart failure, diastolic, with acute decompensation Code(s): I50.33 - ACUTE ON CHRONIC DIASTOLIC (CONGESTIVE) HEART FAILURE (3) Respiratory failure with hypoxia Code(s): J96.91 - RESPIRATORY FAILURE, UNSPECIFIED WITH HYPOXIA Qualifiers: Chronicity: acute Qualified Code(s): J96.01 - Acute respiratory failure with hypoxia (4) CAD (coronary artery disease) Code(s): I25.10 - ATHSCL HEART DISEASE OF [place] CORONARY ARTERY W/O ANG PCTRS Qualifiers: Coronary Disease-Associated Artery/Lesion type: [place] artery [place] vs. transplanted heart: [place] heart Associated angina: without angina Qualified Code(s): I25.10 - Atherosclerotic heart disease of [place] coronary artery without angina pectoris (5) CKD stage 3 due to type 2 diabetes mellitus Code(s): E11.22 - TYPE 2 DIABETES MELLITUS W DIABETIC CHRONIC KIDNEY DISEASE; N18.3 - CHRONIC KIDNEY DISEASE, STAGE 3 (MODERATE) (6) Hyperlipidemia Code(s): E78.5 - HYPERLIPIDEMIA, UNSPECIFIED Qualifiers: Hyperlipidemia type: pure hypercholesterolemia Qualified Code(s): E78.00 - Pure hypercholesterolemia, unspecified; E78.0 - Pure hypercholesterolemia (7) Hypertension Code(s): I10 - ESSENTIAL (PRIMARY) HYPERTENSION Qualifiers: Hypertension type: essential hypertension Qualified Code(s): I10 - Essential (primary) hypertension (8) Type 2 diabetes mellitus Code(s): E11.9 - TYPE 2 DIABETES MELLITUS WITHOUT COMPLICATIONS (9) Hematuria Code(s): R31.9 - HEMATURIA, UNSPECIFIED Qualifiers: Hematuria type: gross Qualified Code(s): R31.0 - Gross hematuria Assessment/Plan 10/04/[address]: Moderate bilateral pleural effusions with lower lobe ATX 09/10/2019 Echo: Mild cLVH with normal LV fxn, grade I diastolic dysfunction, normal RV size and fxn, tr MR 1. Acute in chronic hypoxic respiratory failure 2. Acute on chronic LV diastolic failure resolved 3. ASHD S/P CABG, angina pectoris 4. HTN 5. Hypercholesterolemia 6. Type 2 DM poorly controlled 7. CKD 8. 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 BPH with h/o hemorrhagic cystitis PLAN: 1. Resumed oral diuresis (Lasix 40 qd) with monitor diuretic response, renal fxn and electrolytes 2. Continue bronchodilators, O2 as needed, argu[place] 3. Continue Bystolic 2.5 qd, Zetia 10 qd, Lipitor 40 qd, vasotec 2.5 qd, d/c Plavix due to recurrent hematuria, urology f/u 4. DVT and GI prophylaxis \
[2019-10-09] MEDS: INSULIN (NOVOLOG) ASPART 100 UNITS/ML 10ML VIAL SQ SCH ×2 (12:18→17:30)
--- NOTE | 2019-10-09 15:28 | PN ---
Progress Note, Physician History of Present Illness: PULMONARY SLEEPY,CONFUSED,-RESP DISTRESS - Current Medication List Current Medications: Active Medications Atorvastatin Calcium (Lipitor -) 40 mg PO [facility] Last Admin: 10/08/19 22:00 Dose: 40 mg Ezetimibe (Zetia -) 10 mg PO [facility] Last Admin: 10/08/19 22:00 Dose: 10 mg Enalapril Maleate (Vasotec -) 2.5 mg PO DAILY [facility] Last Admin: 10/09/19 09:49 Dose: 2.5 mg Ferrous Sulfate (Feosol -) 325 mg PO DAILY [facility] Last Admin: 10/09/19 09:49 Dose: 325 mg Furosemide (Lasix -) 40 mg PO DAILY [facility] Last Admin: 10/09/19 09:49 Dose: 40 mg Insulin Aspart (Novolog Vial) 2 units SQ ACLD [facility] Last Admin: 10/09/19 12:18 Dose: 2 units Insulin Aspart (Novolog Vial Sliding Scale -) 1 vial SQ [facility]; Protocol Last Admin: 10/09/19 11:47 Dose: Not Given Insulin Detemir (Levemir Vial) 24 units SQ DAILY@0700 [facility] Last Admin: 10/09/19 06:03 Dose: 24 units Nebivolol (Bystolic -) 2.5 mg PO [facility] Last Admin: 10/08/19 22:00 Dose: 2.5 mg Polyethylene Glycol (Miralax (For Daily Use) -) 17 gm PO DAILY PRN PRN Reason: CONSTIPATION Last Admin: 10/09/19 09:52 Dose: 17 gm Tamsulosin HCl (Flomax -) 0.4 mg PO BID@0830,2200 [facility] Last Admin: 10/09/19 09:49 Dose: 0.4 mg - Objective Vital Signs: Vital Signs Temperature 98.6 F 10/09/19 14:07 Pulse Rate 63 10/09/19 14:07 Respiratory Rate 20 10/09/19 09:10 Blood Pressure 126/60 10/09/19 14:07 O2 Sat by Pulse Oximetry (%) 95 10/08/19 21:00 Constitutional: Yes: Well Nourished, Other (SLEEPY) Eyes: Yes: WNL HENT: Yes: WNL Neck: Yes: WNL Cardiovascular: Yes: Regular Rate and Rhythm, S1, S2 Respiratory: Yes: Diminished (POOR INSPIRATORY EFFORT) Gastrointestinal: Yes: Normal Bowel Sounds, Soft Extremities: Yes: WNL Edema: No Labs: CBC, BMP 10/09/19 07:43 10/09/19 07:43 INR, PTT INR 1.45 (0.83-1.09) H 10/04/19 09:32 Assessment/Plan Problem List - Problems (1) Pleural effusion Code(s): J90 - PLEURAL EFFUSION, NOT ELSEWHERE CLASSIFIED (2) Atelectasis of both lungs Code(s): J98.11 - ATELECTASIS (3) Anemia Code(s): D64.9 - ANEMIA, UNSPECIFIED (4) COPD (chronic obstructive pulmonary disease) Code(s): J44.9 - CHRONIC OBSTRUCTIVE PULMONARY DISEASE, UNSPECIFIED (5) Dementia Code(s): F03.90 - UNSPECIFIED DEMENTIA WITHOUT BEHAVIORAL DISTURBANCE (6) Heart failure, diastolic, with acute decompensation Code(s): I50.33 - ACUTE ON CHRONIC DIASTOLIC (CONGESTIVE) HEART FAILURE (7) Respiratory distress Code(s): R06.03 - ACUTE RESPIRATORY DISTRESS (8) S/P CABG (coronary artery bypass graft) Code(s): Z95.1 - PRESENCE OF AORTOCORONARY BYPASS GRAFT (9) CAD (coronary artery disease) Code(s): I25.10 - ATHSCL HEART DISEASE OF [place] CORONARY ARTERY W/O ANG PCTRS Qualifiers: Coronary Disease-Associated Artery/Lesion type: [place] artery [place] vs. transplanted heart: [place] heart Associated angina: without angina Qualified Code(s): I25.10 - Atherosclerotic heart disease of [place] coronary artery without angina pectoris (10) Hyperlipidemia Code(s): E78.5 - HYPERLIPIDEMIA, UNSPECIFIED Qualifiers: Hyperlipidemia type: pure hypercholesterolemia Qualified Code(s): E78.00 - Pure hypercholesterolemia, unspecified; E78.0 - Pure hypercholesterolemia (11) Hypertension Code(s): I10 - ESSENTIAL (PRIMARY) HYPERTENSION Qualifiers: Hypertension type: essential hypertension Qualified Code(s): I10 - Essential (primary) hypertension (12) Type 2 diabetes mellitus Code(s): E11.9 - TYPE 2 DIABETES MELLITUS WITHOUT COMPLICATIONS Assessment/Plan Lasix O2 as needed Aspiration precautions VTE prophylaxis Daily wts DR JIMENEZ
--- NOTE | 2019-10-09 20:16 | PN ---
Progress Note (short form) - Note Progress Note: HPI: Limited due to clinical condition. No acute events. Vital Signs Temperature 98.6 F 10/09/19 14:07 Pulse Rate 63 10/09/19 14:07 Respiratory Rate 20 10/09/19 09:10 Blood Pressure 126/60 10/09/19 14:07 O2 Sat by Pulse Oximetry (%) 96 10/09/19 09:00 PE: Gen: NAD, awake, alert HEENT: ANTONIO, sclera anicteric, no conjunctival pallor MMM LUNG: Aearation to bases b/l. Poor inspiratory effort. No wheezes appreciated CARD: RRR no murmurs ABD: Soft, NT/ND, no guarding, normoactive BS : Hematuria clearing in arguello with clot formation in argu[place] with continued drainage EXT: no edema, pulses strong b/l CBC, BMP 10/09/19 07:43 10/09/19 07:43 Microbiology 10/04/19 09:37 Blood - Peripheral Venous Blood Culture - Preliminary NO GROWTH OBTAINED AFTER 72 HOURS, INCUBATION TO CONTINUE FOR 2 DAYS. 10/04/19 09:37 Blood - Peripheral Venous Blood Culture - Preliminary NO GROWTH OBTAINED AFTER 72 HOURS, INCUBATION TO CONTINUE FOR 2 DAYS. 10/04/19 09:37 Urine - Urine Clean Catch Urine Culture - Final Yeast Like Organism Assessment and Plan: Acute hypoxic respiratory distress (improved) Hematuria s/p recent TURP and Hemorrhagic MRSA Cystitis Hyperglycemia Type 2 DM history CAD s/p CABG, not in ACS Hx of HTN Hx of HLD Hx of COPD, not in exacerbation --Continue Lasix 40mg qdaily PO --Continue daily weights for diuretic effect --H/H improved today stable --Continue Ferrous sulfate PO with stool softeners PRN --Levemir 24U AM with 2U ACLD and ISS breakthrough to continue --BGM ACHS; BGM ranges 120-140's regularly; BGM ACHS --Continue rest of home medications as above FEN: Fluids: Avoid Electrolyte abnormalities: None Nutrition: Puree diet; diabetic and sodium controlled PPX: DVT - SCDs GI - Not indicated Dispo: anticipate d/c in 24hrs Case discussed with Dr. Joey Grubbs, DO - IM PGy-3
[2019-10-09] MEDS: ATORVASTATIN CA 40 MG TABLET (FP) PO SCH (21:48)
[2019-10-09] MEDS: NEBIVOLOL 2.5 MG TABLET (FP) PO SCH (21:48)
[2019-10-09] MEDS: EZETIMIBE 10 MG TABLET (FP) PO SCH (21:48)
[2019-10-10] MEDS: INSULIN (LEVEMIR) 100 UNITS/ML UNITS SQ SCH (07:09)
[2019-10-10] MEDS: INSULIN SLIDING SCALE (NOVOLOG) 1 VIAL SQ SCH ×3 (07:11→17:07)
[2019-10-10 07:34] LABS: HEMOGLOBIN 10.3 GM/dL (11.7-16.9); MCH 28.4 pg (25.7-33.7); MCHC 33.1 g/dl (32.0-35.9); MEAN CELL VOLUME 85.7 fl (80-96); MEAN PLT VOLUME 8.1 fl (7.5-11.1); PLATELET COUNT 185 K/MM3 (134-434); RBC 3.61 M/mm3 (4.00-5.60); RDW 15.3 % (11.9-15.9); WHITE BLOOD COUNT 7.8 K/mm3 (4.0-10.0)
--- NOTE | 2019-10-10 08:33 | DS ---
Physical Exam: SUBJECTIVE: No acute events noted. HPI limited due to clinical condition, however has been off oxygen and is sleeping comfortably at bedside. Pt had BM last night OBJECTIVE: Vital Signs Period Temp Pulse Resp BP Sys/Poole Pulse Ox Last 24 Hr 98.3 F-99.0 F 63-68 20-20 124-147/54-72 96 PHYSICAL EXAM Gen: NAD, sleeping comfortably, arousable HEENT: ANTONIO, sclera anicteric, no conjunctival pallor, MMM Neck: No JVD LUNG: CTA b/l. Poor inspiratory effort. No wheezes appreciated. 97% on RA CARD: RRR no murmurs ABD: Soft, NT/ND, normoactive BS, no guarding, normoactive BS : Hematuria clearing in argu[place] without any clots. Collection bag was recently drained EXT: no edema, pulses strong b/l LABS Laboratory Results - last 24 hr 10/09/19 10/09/19 10/09/19 07:43 11:37 17:12 WBC RBC Hgb Hct MCV MCH MCHC RDW Plt Count MPV Sodium 139 Potassium 3.7 Chloride 103 Carbon Dioxide 33 H Anion Gap 3 L BUN 17.0 Creatinine 1.0 Est GFR (CKD-EPI)AfAm 82.60 Est GFR (CKD-EPI)NonAf 71.27 POC Glucometer 140 176 Random Glucose 111 H Calcium 8.9 10/09/19 10/10/19 10/10/19 21:17 06:17 07:10 WBC 7.8 RBC 3.61 L Hgb 10.3 L Hct 31.0 L MCV 85.7 MCH 28.4 MCHC 33.1 RDW 15.3 Plt Count 185 MPV 8.1 Sodium Potassium Chloride Carbon Dioxide Anion Gap BUN Creatinine Est GFR (CKD-EPI)AfAm Est GFR (CKD-EPI)NonAf POC Glucometer 257 149 Random Glucose Calcium IMAGING: CXR : 10/07/2019 Single AP view of the chest reveals a prominent mediastinum with sternal sutures and clips, congestive changes and some minimal pleural fluid with some left base atelectasis. The bones and soft tissues are intact. Since 10/04/2019, the pulmonary and pleural findings have increased slightly. Correlation recommended. Chest CT w/ contrast: 10/04/19 IMPRESSION: 1. No evidence of pulmonary embolism. 2. Moderate bilateral pleural effusions and lower lobe atelectasis. Please see above discussion. HOSPITAL COURSE: Date of Admission:10/04/19 Date of Discharge: 10/10/19 Pt admitted on 10/04/19 due to acute volume overload and was noted to be in mild -moderate hypoxic respiratory distress. Pt was continued on NIPPV and IV diuretics. Pt's breathing improved and he was transitioned to nasal cannula. Unfortunately pt was noted to have hematuria and urology was reconsulted as a result. Pt's H/H remained stable and he was foundt o have iron deficiency anemia as well. Pt was started on Ferrous Sulfate 325mg qdaily and PRN Miralax for constipation. Pt's RBC increased without any transfusions and clots dissipated from arguello tubing. Pt was recommended to follow-up outpatient with Dr. Carolyne Morris. In addition, pt was visited by pulmonology and cardiology who both recommended transition to PO Lasix 40mg qdaily. Throughout his stay pt's glucose ranged on average from 140-170's with his previous insulin regiment. Pt is being discharged in stable condition, off of oxygen, and continued PO diuresis back to [facility] for continued placement. All instructions explained to Dago (son) over the phone on day of discharge. Minutes to complete discharge: 33 Discharge Summary Problems reviewed: Yes Reason For Visit: RESPIRATORY DISTRESS Current Active Problems Anemia (Acute) Atelectasis of both lungs (Acute) COPD (chronic obstructive pulmonary disease) (Acute) Chronic venous stasis (Acute) Dementia (Acute) Heart failure, diastolic, with acute decompensation (Acute) Hematuria (Acute) Pleural effusion (Acute) Respiratory distress (Acute) Respiratory failure with hypoxia (Acute) S/P CABG (coronary artery bypass graft) (Acute) UTI (urinary tract infection) (Acute) Condition: Stable - Instructions Diet, Activity, Other Instructions: You were seen due to having volume overload. While you were here, you were given diuretics and your breathing improved. You were given iron supplements to help with your blood counts and they remained stable MEDICATIONS: Please take Lasix 40mg daily Please take Ferrous Sulfate 325mg daily --Because this is constipating you can take Miralax 17gm daily Please continue Levemir 24Units daily, Novolog 2U scheduled before lunch and dinner --You will have a sliding scale insulin to cover for any high glucose levels Follow-up: Please Follow-up with Dr. Bubba Morris in 3-5 days to update them on your care Please follow with Dr. Carolyne Morris in 1 week for the hematuria Please follow-up with Dr. Sanabria or your own fiscal technician in 1 week regarding the plavix Referrals: Yamila Morris MD [Staff Physician] - 1 Week Souleymane Morris MD [Primary Care Provider] - (3-5 days) Shahid Sanabria MD [Staff Physician] - 1 Week Disposition: RESIDENTIAL FACILITY - Home Medications Comprehensive Discharge Medication List: Ambulatory Orders Atorvastatin Ca [Lipitor] 40 mg PO DAILY 05/06/19 Ezetimibe 10 mg PO HS 05/06/19 Nebivolol HCl [Bystolic] 2.5 mg PO HS 05/06/19 Compression Socks, Medium [Futuro Restoring] 1 each MC DAILY #1 each 09/06/19 Insulin Aspart [Novolog] 2 unit SQ ACLD #1 cartridge 09/06/19 Insulin Sliding Scale [Novolog Vial Sliding Scale -] 1 vial SQ ACHS units 09/06 Tamsulosin HCl 0.4 mg PO BID #60 capsule 09/06/19 Insulin (Levemir) [Levemir Vial] 24 units SQ DAILY 10/04/19 Clopidogrel Bisulfate [Plavix -] 75 mg PO DAILY tablet 10/10/19 Enalapril Maleate [Vasotec -] 2.5 mg PO DAILY tablet 10/10/19 Ferrous Sulfate [Feosol] 325 mg PO DAILY ud 10/10/19 Furosemide [Lasix -] 40 mg PO DAILY tablet 10/10/19 Polyethylene Glycol 3350 [Miralax 119 gm Btl -] 17 gm PO DAILY PRN bottle 10/10 This patient is new to me today: No Emergency Visit: Yes ED Registration Date: 10/04/19 Care time: The patient presented to the Emergency Department on the above date and was hospitalized for further evaluation of their emergent condition. Critical Care patient: No - Discharge Referral Referred to [facility] Med [facility] No ATTENDING PHYSICIAN STATEMENT I saw and evaluated the patient. I reviewed the resident's note and discussed the case with the resident. I agree with the resident's findings and plan as documented. SUBJECTIVE: OBJECTIVE: ASSESSMENT AND PLAN:
[2019-10-10] MEDS ORDERED: PT OWN MED DRAWER 7, Y5N ONE (09:49)
[2019-10-10] MEDS: FUROSEMIDE 40 MG TABLET (FP) PO SCH (09:58)
[2019-10-10] MEDS: FERROUS SO4 325 MG TABLET (FP) PO SCH (09:58)
[2019-10-10] MEDS: ENALAPRIL MALEATE 2.5 MG TABLET (FP) PO SCH (09:58)
[2019-10-10] MEDS: TAMSULOSIN HCL 0.4 MG CAP PO SCH (09:58)
--- NOTE | 2019-10-10 10:06 | PN ---
Progress Note, Physician History of Present Illness: Hematuria in chronic indwelling Arguello, no clots. - Current Medication List Current Medications: Active Medications Atorvastatin Calcium (Lipitor -) 40 mg PO [facility] Last Admin: 10/09/19 21:48 Dose: 40 mg Ezetimibe (Zetia -) 10 mg PO [facility] Last Admin: 10/09/19 21:48 Dose: 10 mg Enalapril Maleate (Vasotec -) 2.5 mg PO DAILY [facility] Last Admin: 10/10/19 09:58 Dose: 2.5 mg Ferrous Sulfate (Feosol -) 325 mg PO DAILY [facility] Last Admin: 10/10/19 09:58 Dose: 325 mg Furosemide (Lasix -) 40 mg PO DAILY [facility] Last Admin: 10/10/19 09:58 Dose: 40 mg Insulin Aspart (Novolog Vial) 2 units SQ ACLD [facility] Last Admin: 10/09/19 17:30 Dose: 2 units Insulin Aspart (Novolog Vial Sliding Scale -) 1 vial SQ [facility]; Protocol Last Admin: 10/10/19 07:11 Dose: Not Given Insulin Detemir (Levemir Vial) 24 units SQ DAILY@0700 [facility] Last Admin: 10/10/19 07:09 Dose: 24 units Nebivolol (Bystolic -) 2.5 mg PO [facility] Last Admin: 10/09/19 21:48 Dose: 2.5 mg Polyethylene Glycol (Miralax (For Daily Use) -) 17 gm PO DAILY PRN PRN Reason: CONSTIPATION Last Admin: 10/09/19 21:54 Dose: 17 gm Tamsulosin HCl (Flomax -) 0.4 mg PO BID@0830,2200 [facility] Last Admin: 10/10/19 09:58 Dose: 0.4 mg - Objective Vital Signs: Vital Signs Temperature 98.4 F 10/10/19 08:20 Pulse Rate 67 10/10/19 08:20 Respiratory Rate 18 10/10/19 08:20 Blood Pressure 108/60 10/10/19 08:20 O2 Sat by Pulse Oximetry (%) 96 10/09/19 09:00 Constitutional: Yes: No Distress, Calm Neck: Yes: Supple Cardiovascular: Yes: Regular Rate and Rhythm Respiratory: Yes: Regular, Diminished Gastrointestinal: Yes: Normal Bowel Sounds, Soft Genitourinary: Yes: [place] Present, Hematuria Edema: No Labs: CBC, BMP 10/10/19 07:10 10/09/19 07:43 INR, PTT INR 1.45 (0.83-1.09) H 10/04/19 09:32 Problem List - Problems (1) S/P CABG (coronary artery bypass graft) Code(s): Z95.1 - PRESENCE OF AORTOCORONARY BYPASS GRAFT (2) Heart failure, diastolic, with acute decompensation Code(s): I50.33 - ACUTE ON CHRONIC DIASTOLIC (CONGESTIVE) HEART FAILURE (3) Respiratory failure with hypoxia Code(s): J96.91 - RESPIRATORY FAILURE, UNSPECIFIED WITH HYPOXIA Qualifiers: Chronicity: acute Qualified Code(s): J96.01 - Acute respiratory failure with hypoxia (4) CAD (coronary artery disease) Code(s): I25.10 - ATHSCL HEART DISEASE OF [place] CORONARY ARTERY W/O ANG PCTRS Qualifiers: Coronary Disease-Associated Artery/Lesion type: [place] artery [place] vs. transplanted heart: [place] heart Associated angina: without angina Qualified Code(s): I25.10 - Atherosclerotic heart disease of [place] coronary artery without angina pectoris (5) CKD stage 3 due to type 2 diabetes mellitus Code(s): E11.22 - TYPE 2 DIABETES MELLITUS W DIABETIC CHRONIC KIDNEY DISEASE; N18.3 - CHRONIC KIDNEY DISEASE, STAGE 3 (MODERATE) (6) Hyperlipidemia Code(s): E78.5 - HYPERLIPIDEMIA, UNSPECIFIED Qualifiers: Hyperlipidemia type: pure hypercholesterolemia Qualified Code(s): E78.00 - Pure hypercholesterolemia, unspecified; E78.0 - Pure hypercholesterolemia (7) Hypertension Code(s): I10 - ESSENTIAL (PRIMARY) HYPERTENSION Qualifiers: Hypertension type: essential hypertension Qualified Code(s): I10 - Essential (primary) hypertension (8) Type 2 diabetes mellitus Code(s): E11.9 - TYPE 2 DIABETES MELLITUS WITHOUT COMPLICATIONS (9) Hematuria Code(s): R31.9 - HEMATURIA, UNSPECIFIED Qualifiers: Hematuria type: gross Qualified Code(s): R31.0 - Gross hematuria Assessment/Plan 10/04/[address]: Moderate bilateral pleural effusions with lower lobe ATX 09/10/2019 Echo: Mild cLVH with normal LV fxn, grade I diastolic dysfunction, normal RV size and fxn, tr MR 1. Acute in chronic hypoxic respiratory failure 2. Acute on chronic LV diastolic failure resolved 3. ASHD S/P CABG, angina pectoris 4. HTN 5. Hypercholesterolemia 6. Type 2 DM poorly controlled 7. CKD 8. 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 BPH with h/o hemorrhagic cystitis PLAN: 1. Resumed oral diuresis (Lasix 40 qd) with monitor diuretic response, renal fxn and electrolytes 2. Continue bronchodilators, O2 as needed, [place] 3. Continue Bystolic 2.5 qd, Zetia 10 qd, Lipitor 40 qd, vasotec 2.5 qd, d/jonathan Plavix due to recurrent hematuria, urology f/u as outpatient 4. DVT and GI prophylaxis \
[2019-10-10] MEDS: INSULIN (NOVOLOG) ASPART 100 UNITS/ML 10ML VIAL SQ SCH ×2 (11:42→17:07)
[2019-10-10 14:38] VITALS: BP 134/58; PULSE 72; TEMP 98
[2019-10-10] MEDS ORDERED: ALBUTEROL SO4 2.5/IPRATROPIUM 0.5 INH SOL 3 ML VIAL.NEB. NEB PRN (14:53)
== END 2019-10-10 18:13 | DRG 291 ==
LOC: JER 08:50 → JERBED 11:25 → J6S 14:26
PROVIDERS: ADMIT Internal Medicine; ATTEND Internal Medicine
DX: I13.0 Hypertensive heart and chronic kidney disease with heart failure and stage 1 through stage 4 chronic kidney disease, or unspecified chronic kidney disease (principal); J96.21 Acute and chronic respiratory failure with hypoxia; I50.33 Acute on chronic diastolic (congestive) heart failure; J90 Pleural effusion, not elsewhere classified; J98.11 Atelectasis; I87.8 Other specified disorders of veins; J44.9 Chronic obstructive pulmonary disease, unspecified; E78.5 Hyperlipidemia, unspecified; R31.9 Hematuria, unspecified; F03.90 Unspecified dementia, unspecified severity, without behavioral disturbance, psychotic disturbance, mood disturbance, and anxiety; E11.65 Type 2 diabetes mellitus with hyperglycemia; N40.0 Benign prostatic hyperplasia without lower urinary tract symptoms; I25.119 Atherosclerotic heart disease of native coronary artery with unspecified angina pectoris; Z95.1 Presence of aortocoronary bypass graft; N18.3 Chronic kidney disease, stage 3 (moderate)
CPT/HCPCS: 36415; 71045-TC-FY; 71260-TC; 80048; 80053; 81003; 82308; 82550; 82803; 82962; 83605; 83735; 83880; 84100; 84311; 84484; 85025; 85027; 85610; 87040; 87086; 93005; 93010; 94640; 94660; 99285-25

== ENCOUNTER 2019-10-31 16:12 | Inpatient (IN) | payer OTHER ==
--- NOTE | 2019-10-31 17:28 | PDOC ---
History of Present Illness - General Chief Complaint: Lethargy Stated Complaint: Weakness Time Seen by Provider: 10/31/19 17:27 History Source: Patient Exam Limitations: No Limitations - History of Present Illness Initial Comments: 10/31/19 17:43 79M w PMH IDDM, HTN, HLD, CAD, CKD, blindness, bladder outlet obstruction w arguello, dementia presenting from home w lethargy and hyperglycemia. Pt has dementia at baseline, is poor historian. Per , pt has been acting lethargic today with elevated blood glucose. Has arguello in place for bladder outlet obstruction for past month, was told by urologist to come to hospital to replace. denies pt having fevers, cough. Pt denies chest pain, SOB, nausea/ vomiting. Pt lives at home w and son (health care proxy, PHARMACY OPERATIONS COORDINATOR) Past History - Past Medical History Allergies/Adverse Reactions: Allergies Allergy/AdvReac Type Severity Reaction Status Date / Time No Known Allergies Allergy Verified 01/11/19 11:57 Home Medications: Ambulatory Orders Atorvastatin Ca [Lipitor] 40 mg PO DAILY 05/06/19 Ezetimibe 10 mg PO HS 05/06/19 Nebivolol HCl [Bystolic] 2.5 mg PO HS 05/06/19 Compression Socks, Medium [Futuro Restoring] 1 each MC DAILY #1 each 09/06/19 Insulin Aspart [Novolog] 2 unit SQ ACLD #1 cartridge 09/06/19 Insulin Sliding Scale [Novolog Vial Sliding Scale -] 1 vial SQ ACHS units 09/06 Tamsulosin HCl 0.4 mg PO BID #60 capsule 09/06/19 Insulin (Levemir) [Levemir Vial] 24 units SQ DAILY 10/04/19 Enalapril Maleate [Vasotec -] 2.5 mg PO DAILY tablet 10/10/19 Ferrous Sulfate [Feosol] 325 mg PO DAILY ud 10/10/19 Furosemide [Lasix -] 40 mg PO DAILY tablet 10/10/19 Polyethylene Glycol 3350 [Miralax 119 gm Btl -] 17 gm PO DAILY PRN bottle 10/10 Anemia: No Asthma: Yes Cancer: No Cardiac Disorders: Yes (cabg) CVA: No COPD: No CHF: No Dementia: No Diabetes: Yes GI Disorders: No Disorders: No HTN: Yes Hypercholesterolemia: Yes Liver Disease: No Seizures: No Thyroid Disease: No - Surgical History Abdominal Surgery: No Appendectomy: No Cardiac Surgery: Yes ('96) Cholecystectomy: No Lung Surgery: No Neurologic Surgery: No Orthopedic Surgery: Yes (rt hip orif) - Immunization History Immunization Up to Date: Yes - Psycho Social/Smoking Cessation Hx Smoking Status: No Smoking History: Unknown if ever smoked Have you smoked in the past 12 months: No Number of Cigarettes Smoked Daily: 0 If you are a former smoker, when did you quit?: '96 Hx Alcohol Use: No Drug/Substance Use Hx: No Substance Use Type: None Hx Substance Use Treatment: No Review of Systems - Review of Systems Able to Perform ROS?: No (dementia) *Physical Exam - Vital Signs Last Vital Signs Temp Pulse Resp BP Pulse Ox 98.6 F 76 20 138/66 99 10/31/19 16:33 10/31/19 16:33 10/31/19 16:33 10/31/19 16:33 10/31/19 16:33 - Physical Exam General Appearance: Yes: Nourished, Appropriately Dressed, Disheveled HEENT: positive: Hearing Grossly Normal, Other (R injected conjunctiva). negative: Scleral Icterus (R), Scleral Icterus (L) Respiratory/Chest: positive: Lungs Clear, Normal Breath Sounds. negative: Chest Tender, Respiratory Distress, Crackles, Rales, Rhonchi, Stridor, Wheezing Cardiovascular: positive: Regular Rhythm, Regular Rate, S1, S2. negative: Edema , Murmur Gastrointestinal/Abdominal: positive: Normal Bowel Sounds, Flat, Soft, Other ( chest/AB excoriations). negative: Tender, Organomegaly, Rebound, Tenderness, Hernia, Mass Male Genitalia: negative: normal genitalia (erythematous genitals, arguello in place) Extremity: positive: Delayed Capillary Refill (4s) Integumentary: positive: Dry Neurologic: positive: Alert, Responsive. negative: Fully Oriented ED Treatment Course - LABORATORY CBC & Chemistry Diagram: 10/31/19 18:20 10/31/19 19:39 - ADDITIONAL ORDERS Additional order review: Laboratory Results 10/31/19 16:44 POC Glucometer 417 10/31/19 16:44 POC Glucometer 417 Medical Decision Making - Medical Decision Making 10/31/19 18:25 CBC CMP trop UA lactate blood/urine cx CXR shows no acute lung pathology EKG shows NSR, HR 79, QTc 472, no ST changes 2L NS, vanc, zosyn, WBC 15, UTI on UA, trop neg --- 79M w PMH IDDM, HTN, HLD, CAD, CKD, blindness, bladder outlet obstruction w arguello, dementia presenting w lethargy and hyperglycemia 2/2 UTI with KIKI. Low concern for DKA (normal pH, no urine ketones) vs ACS (trop neg, NSR EKG) vs PNA (clear lungs CXR). Given 2L NS, vanc, zosyn, replaced indwelling arguello. BG 345 after 1st L NC. Admitted to m/s Dr Mojica for UTI w KIKI, hyperglycemia. Discharge - Discharge Information Problems reviewed: Yes Clinical Impression/Diagnosis: KIKI (acute kidney injury), Hyperglycemia UTI (urinary tract infection) Qualifiers: Urinary tract infection type: acute cystitis Hematuria presence: without hematuria Qualified Code(s): N30.00 - Acute cystitis without hematuria Condition: Stable - Follow up/Referral - Patient Discharge Instructions - Post Discharge Activity
[2019-10-31] MEDS ORDERED: SODIUM CHLORIDE 0.9% 500 ML INFUS.BAG IV ONE (17:40)
[2019-10-31 18:43] LABS: VENOUS PC02 48.5 mmHg (38-52); VENOUS PH 7.37 (7.31-7.41)
[2019-10-31 18:44] LABS: VENOUS PO2 < 49 mmHg (28-48)
[2019-10-31 18:46] LABS: BASO % 0.6 % (0-2.0); EOS % 4.7 % (0-4.5); HEMATOCRIT 37.1 % (35.4-49); HEMOGLOBIN 12.3 GM/dL (11.7-16.9); MCH 27.6 pg (25.7-33.7); MCHC 33.2 g/dl (32.0-35.9); MEAN CELL VOLUME 83.2 fl (80-96); MEAN PLT VOLUME 9.4 fl (7.5-11.1); MONO % 10.1 % (3.8-10.2); NEUT % 66.6 % (42.8-82.8); PLATELET COUNT 187 K/MM3 (134-434); RBC 4.46 M/mm3 (4.00-5.60); RDW 15.5 % (11.9-15.9); WHITE BLOOD COUNT 15.3 K/mm3 (4.0-10.0)
[2019-10-31 18:58] LABS: EPI CELLS 0.9 /HPF (0-5/HPF); HYALINE CASTS 2 /lpf (0-8); PH,URINE 5.5 (5.0-8.0); URINE APPEARANCE CLOUDY; URINE BACTERIA 1895.1 /hpf (NEGATIVE); URINE BILIRUBIN NEGATIVE (NEGATIVE); URINE COLOR YELLOW; URINE GLUCOSE (UA) 3+ (NEGATIVE); URINE KETONE NEGATIVE (NEGATIVE); URINE LEUK ESTERASE 2+ (NEGATIVE); URINE NITRITE POSITIVE (NEGATIVE); URINE PROTEIN 1+ (NEGATIVE); URINE RBC 23 /hpf (0-4); URINE UROBILINOGEN 0.2 mg/dL (0.2-1.0); URINE WBC 268 /hpf (0-5)
[2019-10-31 19:18] LABS: YEAST FEW (NEGATIVE)
[2019-10-31] MEDS ORDERED: SODIUM CHLORIDE IV ONE (20:16)
[2019-10-31 20:17] LABS: ALK PHOS 144 U/L (45-117); ANION GAP 7 MMOL/L (8-16); BILIRUBIN,TOTAL 0.3 mg/dL (0.2-1); BLOOD UREA NITROGEN 47.6 mg/dL (7-18); CALCIUM 9.2 mg/dL (8.5-10.1); CHLORIDE 102 mmol/L (98-107); CO2 27 mmol/L (21-32); CREATININE 1.5 mg/dL (0.55-1.3); GLUCOSE,RANDOM 345 mg/dL (74-106); POTASSIUM 4.1 mmol/L (3.5-5.1); SGOT/AST 16 U/L (15-37); SGPT/ALT 17 U/L (13-61); SODIUM 136 mmol/L (136-145); TOT PROT 7.5 g/dl (6.4-8.2)
[2019-10-31] MEDS ORDERED: PIPERACILLIN/TAZOB 4.5 GM 4.5 GM in DEXTROSE 5%-WATER 100 ML IVPB ONE (20:18)
[2019-10-31] MEDS ORDERED: VANCOMYCIN 1 GM in D5W (PRE-DOCKED) 1,000 MG/250 ML IVPB ONE (20:18)
--- NOTE | 2019-10-31 20:22 | PDOC ---
Documentation entered by Kevyn Richey SCRIBE, acting as scribe for Meaghan Anderson MD. Meaghan Anderson MD: This documentation has been prepared by the Rossi olivera Nirvannie, SCRIBE, under my direction and personally reviewed by me in its entirety. I confirm that the documentation accurately reflects all work, treatment, procedures, and medical decision making performed by me. Attending Attestation - Resident Resident Name: Dyllan Mott - ED Attending Attestation I have performed the following: I have examined & evaluated the patient, The case was reviewed & discussed with the resident, I agree w/resident's findings & plan - HPI HPI: 10/31/19 20:19 79-year-old male history of dementia diabetes CHF COPD status post CABG and CKD here with worsening lethargy. Patient is currently at home with his and his son who is an SILVERING DEPARTMENT SUPERVISOR states they have noted that he has been more lethargic recently he was concerned that he may have a urinary tract infection as patient does have an indwelling catheter denies any recent nausea or vomiting no fevers at home patient is unable to provide any history as he is currently demented answers in one-word history is provided by old chart review and the who is at the bedside in addition to the patient's son - Physicial Exam PE: 10/31/19 20:20 Patient is awake appears disoriented has dry mucous membranes lungs are clear bilaterally heart is regular without murmurs rubs or gallops abdomen is soft and nontender Strong catheter is in place there is noted to be cloudy urine in the catheter. Extremities are warm well perfused skin is warm and dry patient is oriented to person only - Medical Decision Making 10/31/19 20:20 79-year-old male history of diabetes hypertension CAD CABG COPD CHF CKD here with altered mental status indwelling Strong. Differential includes sepsis secondary to UTI, renal failure, electrolyte disturbance, hyperglycemia nonketotic hyperosmolar syndrome, DKA. Plan IV hydration with 2 L normal saline was given. UA and urine cultures were sent and are pending patient will be covered with Vanco Zosyn for presumed UTI based on appearance of the urine the Strong will be changed chest x-ray ordered and pending Heart Score/ECG Review #1 General ECG Interpretation: Sinus Rhythm, Normal Rate (79), Normal Intervals, No acute ischemic changes
--- NOTE | 2019-10-31 21:36 | PN ---
Teaching Attending Note Name of Resident: Patel Hermosillo ATTENDING PHYSICIAN STATEMENT I saw and evaluated the patient. I reviewed the resident's note and discussed the case with the resident. I agree with the resident's findings and plan as documented. SUBJECTIVE: Patient is a 79 year old man with PMH of Dementia, NIDDM, CHF COPD, CAD (status post CABG) and CKD presenting with worsening lethargy. Patient is currently at home with his and his son who is an ACADEMIC REGISTRAR states they have noted that he has been more lethargic recently. They were concerned that he may have a urinary tract infection as patient does have an indwelling catheter. He denies any recent nausea or vomiting no fevers at home. Patient is unable to provide any history due to dementia. Denies tobacco, alcohol or illicit drug use. No recent travel or sick contact. OBJECTIVE: Alert Vital Signs Period Temp Pulse Resp BP Sys/Poole Pulse Ox Last 24 Hr 98.6 F 76 20 138/66 99 HEENT: No Jaundice, eye redness or discharge, PERRLA, EOMI. Normocephalic, atraumatic. External ears are normal and hearing is grossly intact. No nasal discharge. Neck: Supple, nontender. No palpable adenopathy or thyromegaly. No JVD Chest: Good effort. Clear to auscultation and percussion. Heart: Regular. No S3, rub or murmur Abdomen: Not distended, soft, nontender and no HSM. No rebound or guarding. Normal bowel sounds. Ext: Peripheral pulses intact. No leg edema. Right arm contracture. Skin: Warm and dry. No petechiae, rash or ecchymosis. Neuro: Alert. Oriented x3. CN 2-12 grossly intact. Sensation grossly intact in all four extremities and DTR are symmetric. Psych: Appropriate mood and affect. Good insight. Current Medications Generic Name Dose Route Start Last Admin Trade Name Freq PRN Reason Stop Dose Admin Sodium Chloride 2,055 mls @ 1,027.5 mls/hr 10/31/19 20:16 Normal Saline - 30 ml/kg infuse over 2 hr (2055 ml) 10/31/19 22:15 IV ONCE ONE Home Medications Medication Instructions Recorded Atorvastatin Ca [Lipitor] 40 mg PO DAILY 05/06/19 Ezetimibe 10 mg PO HS 05/06/19 Nebivolol HCl [Bystolic] 2.5 mg PO HS 05/06/19 Compression Socks, Medium [Futuro 1 each MC DAILY #1 each 09/06/19 Restoring] Insulin Aspart [Novolog] 2 unit SQ ACLD #1 cartridge 09/06/19 Insulin Sliding Scale [Novolog 1 vial SQ ACHS units 09/06/19 Vial Sliding Scale -] Tamsulosin HCl 0.4 mg PO BID #60 capsule 09/06/19 Insulin (Levemir) [Levemir Vial] 24 units SQ DAILY 10/04/19 Enalapril Maleate [Vasotec -] 2.5 mg PO DAILY tablet 10/10/19 Ferrous Sulfate [Feosol] 325 mg PO DAILY ud 10/10/19 Furosemide [Lasix -] 40 mg PO DAILY tablet 10/10/19 Polyethylene Glycol 3350 [Miralax 17 gm PO DAILY PRN bottle 10/10/19 119 gm Btl -] Abnormal Lab Results 10/31/19 10/31/19 10/31/19 18:20 18:20 18:20 WBC 15.3 H Absolute Neuts (auto) 10.2 H Eosinophils % 4.7 H POC VBG pO2 < 49 H VBG O2 Sat (Nohemi) 61.8 L Anion Gap BUN Creatinine Random Glucose Alkaline Phosphatase Albumin Urine Protein 1+ H Urine Glucose (UA) 3+ H Urine Blood 2+ H Urine Nitrite Positive H Ur Leukocyte Esterase 2+ H 10/31/19 19:39 WBC Absolute Neuts (auto) Eosinophils % POC VBG pO2 VBG O2 Sat (Nohemi) Anion Gap 7 L BUN 47.6 H Creatinine 1.5 H Random Glucose 345 H Alkaline Phosphatase 144 H Albumin 3.0 L Urine Protein Urine Glucose (UA) Urine Blood Urine Nitrite Ur Leukocyte Esterase ASSESSMENT AND PLAN: 1. UTI - Sepsis workup done. Will treat with IV Rocephin and Linezolid pending urine culture. Continue IV fluids. CXR prominent mediastinum but no infiltrates. EKG shows NSR with no ischemic changes. Will continue comprehensive care for all of patients comorbid conditions. 2. Hypoalbuminemia - Possibly due to combined effects of proteinuria, malnutrition and inflammation associated with comorbid chronic conditions. Will ensure adequate dietary protein intake and also consult fountain roller assembler. 3. Uncontrolled DM For now, we will hold the home diabetes drugs and implement sliding scale insulin regimen. Provide comprehensive diabetes care with patient teaching and counseling about the importance of adherence to prescribed diabetes regimen, euglycemia, eye care and foot care. 4. KIKI - Likely multifactorial. Will get kidney sonogram, hydrate gently and monitor urine output. Will consult nephrology and avoid nephrotoxic agents such as NSAIDS, aminoglycosides, contrast dyes and certain Alternative medicine products. 5. DVT prophylaxis - Heparin 5000u sq tid. 6. Advance directives - Full code
[2019-10-31] MEDS ORDERED: VANCOMYCIN 1 GRAM (PRE-DOCKED) 1,000 MG/250 ML BAG IVPB ONE (21:41)
--- NOTE | 2019-10-31 23:02 | HP ---
CHIEF COMPLAINT: abdominal discomfort PCP: Dr. Souleymane Morris Urologist: Dr. 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 Pt's states he had a new Strong catheter placed 2 days ago. Today he began to experience lower abdominal discomfort and tactile fever (not measured). At home he took Tylenol with minimal symptom relief. No NVD and chills. Pt has chronic constipation. The describes an approximate 10 lb weight loss over several months and relates it to decreased appetite. Denies night sweats. The provides pt insulin and records blood sugar daily , saying that it is always in the 300s. She states that they saw the general claims agent and actuarial science professor 6 month ago. The pt has never had a colonoscopy. Denies ELLISON, dizziness, numbness, tingling, SOB, and CP. 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[place] [address] with and son who is a ORACLE ADF CONSULTANT Family history: Unknown parents, siblings with DM Allergies: No Known Allergies Allergy (Verified 01/11/19 11:57) HOME MEDICATIONS: Medication Instructions Recorded Atorvastatin Ca [Lipitor] 40 mg PO DAILY 05/06/19 Ezetimibe 10 mg PO HS 05/06/19 Nebivolol HCl [Bystolic] 2.5 mg PO HS 05/06/19 Compression Socks, Medium [Futuro 1 each MC DAILY #1 each 09/06/19 Restoring] Insulin Aspart [Novolog] 2 unit SQ ACLD #1 cartridge 09/06/19 Insulin Sliding Scale [Novolog 1 vial SQ ACHS units 09/06/19 Vial Sliding Scale -] Tamsulosin HCl 0.4 mg PO BID #60 capsule 09/06/19 Insulin (Levemir) [Levemir Vial] 24 units SQ DAILY 10/04/19 Enalapril Maleate [Vasotec -] 2.5 mg PO DAILY tablet 10/10/19 Ferrous Sulfate [Feosol] 325 mg PO DAILY ud 10/10/19 Furosemide [Lasix -] 40 mg PO DAILY tablet 10/10/19 Polyethylene Glycol 3350 [Miralax 17 gm PO DAILY PRN bottle 10/10/19 119 gm Btl -] REVIEW OF SYSTEMS CONSTITUTIONAL: Absent: fever, chills, diaphoresis, generalized weakness, malaise, loss of appetite, weight change HEENT: Absent: rhinorrhea, nasal congestion, throat pain, throat swelling, difficulty swallowing, mouth swelling, ear pain, eye pain, visual changes CARDIOVASCULAR: Absent: chest pain, syncope, palpitations, irregular heart rate, lightheadedness , peripheral edema RESPIRATORY: Absent: cough, shortness of breath, dyspnea with exertion, orthopnea, wheezing, stridor, hemoptysis GASTROINTESTINAL: Absent: abdominal pain, abdominal distension, nausea, vomiting, diarrhea, constipation, melena, hematochezia GENITOURINARY: Absent: dysuria, frequency, urgency, hesitancy, hematuria, flank pain, genital pain MUSCULOSKELETAL: Absent: myalgia, arthralgia, joint swelling, back pain, neck pain SKIN: Absent: rash, itching, pallor HEMATOLOGIC/IMMUNOLOGIC: Absent: easy bleeding, easy bruising, lymphadenopathy, frequent infections ENDOCRINE: Absent: unexplained weight gain, unexplained weight loss, heat intolerance, cold intolerance NEUROLOGIC: Absent: headache, focal weakness or paresthesias, dizziness, unsteady gait, seizure, mental status changes, bladder or bowel incontinence PSYCHIATRIC: Absent: anxiety, depression, suicidal or homicidal ideation, hallucinations. PHYSICAL EXAMINATION Vital Signs - 24 hr 10/31/19 16:33 Temperature 98.6 F Pulse Rate 76 Respiratory 20 Rate Blood Pressure 138/66 O2 Sat by Pulse 99 Oximetry (%) GENERAL: AOx2 to person and place, speaks Malayalam HEAD: NCAT EYES: BL diabetic keratopahy, opaque cornea R>L ENT: Ears normal, nares patent, oropharynx clear without exudates. Dry mucous membranes. NECK: No lymphadenopathy, JVD, or masses. LUNGS: CTAB. No wheezes, and no crackles. No accessory muscle use. HEART: RRR s1 s2 ABDOMEN: Tender to palpation in suprapubic region and RUQ, + guarding, soft, BS present in all 4 quadrants, non-distended UPPER EXTREMITIES: RIGHT UE contracted. LUE 3/5 power. 2+ pulses, warm, well- perfused. No cyanosis. No clubbing. No peripheral edema. LOWER EXTREMITIES: 2+ pulses, warm, well-perfused. No calf tenderness. No peripheral edema. Dry. NEUROLOGICAL: Dysarthria. Contracted RUE. 3/5 strength LUE. SKIN: Dry. Diffuse excorations on chest L>R. Vertical sternal scar. Laboratory Results - last 24 hr 10/31/19 10/31/19 10/31/19 16:44 18:20 18:20 WBC 15.3 H RBC 4.46 Hgb 12.3 Hct 37.1 D MCV 83.2 MCH 27.6 MCHC 33.2 RDW 15.5 Plt Count 187 MPV 9.4 D Absolute Neuts (auto) 10.2 H Neutrophils % 66.6 Lymphocytes % 18.0 D Monocytes % 10.1 Eosinophils % 4.7 H Basophils % 0.6 Nucleated RBC % 0 VBG pH POC VBG pCO2 POC VBG pO2 VBG HCO3 VBG O2 Sat (Nohemi) VBG Base Excess Sodium Cancelled Potassium Cancelled Chloride Cancelled Carbon Dioxide Cancelled Anion Gap Cancelled BUN Cancelled Creatinine Cancelled Est GFR (CKD-EPI)AfAm Cancelled Est GFR (CKD-EPI)NonAf Cancelled POC Glucometer 417 Random Glucose Cancelled Lactic Acid Calcium Cancelled Total Bilirubin Cancelled AST Cancelled ALT Cancelled Alkaline Phosphatase Cancelled Creatine Kinase Troponin I Total Protein Cancelled Albumin Cancelled Urine Color Urine Appearance Urine pH Ur Specific [place] Urine Protein Urine Glucose (UA) Urine Ketones Urine Blood Urine Nitrite Urine Bilirubin Urine Urobilinogen Ur Leukocyte Esterase Urine WBC (Auto) Urine RBC (Auto) Urine Casts (Auto) U Pathogenic Cast Auto U Epithel Cells (Auto) Urine Bacteria (Auto) Urine Yeast (Auto) 10/31/19 10/31/19 10/31/19 18:20 18:20 18:20 WBC RBC Hgb Hct MCV MCH MCHC RDW Plt Count MPV Absolute Neuts (auto) Neutrophils % Lymphocytes % Monocytes % Eosinophils % Basophils % Nucleated RBC % VBG pH 7.37 POC VBG pCO2 48.5 POC VBG pO2 < 49 H VBG HCO3 27.2 VBG O2 Sat (Nohemi) 61.8 L VBG Base Excess 1.7 Sodium Potassium Chloride Carbon Dioxide Anion Gap BUN Creatinine Est GFR (CKD-EPI)AfAm Est GFR (CKD-EPI)NonAf POC Glucometer Random Glucose Lactic Acid Calcium Total Bilirubin AST ALT Alkaline Phosphatase Creatine Kinase Cancelled Troponin I Cancelled Total Protein Albumin Urine Color Yellow Urine Appearance Cloudy Urine pH 5.5 Ur Specific [place] 1.013 Urine Protein 1+ H Urine Glucose (UA) 3+ H Urine Ketones Negative Urine Blood 2+ H Urine Nitrite Positive H Urine Bilirubin Negative Urine Urobilinogen 0.2 Ur Leukocyte Esterase 2+ H Urine WBC (Auto) 268 Urine RBC (Auto) 23 Urine Casts (Auto) 2 U Pathogenic Cast Auto None U Epithel Cells (Auto) 0.9 Urine Bacteria (Auto) 1895.1 Urine Yeast (Auto) Few 10/31/19 10/31/19 19:39 21:00 WBC RBC Hgb Hct MCV MCH MCHC RDW Plt Count MPV Absolute Neuts (auto) Neutrophils % Lymphocytes % Monocytes % Eosinophils % Basophils % Nucleated RBC % VBG pH POC VBG pCO2 POC VBG pO2 VBG HCO3 VBG O2 Sat (Nohemi) VBG Base Excess Sodium 136 Potassium 4.1 Chloride 102 Carbon Dioxide 27 Anion Gap 7 L BUN 47.6 H Creatinine 1.5 H Est GFR (CKD-EPI)AfAm 50.59 Est GFR (CKD-EPI)NonAf 43.65 POC Glucometer Random Glucose 345 H Lactic Acid 1.2 Calcium 9.2 Total Bilirubin 0.3 AST 16 ALT 17 Alkaline Phosphatase 144 H Creatine Kinase 146 Troponin I < 0.02 Total Protein 7.5 Albumin 3.0 L Urine Color Urine Appearance Urine pH Ur Specific [place] Urine Protein Urine Glucose (UA) Urine Ketones Urine Blood Urine Nitrite Urine Bilirubin Urine Urobilinogen Ur Leukocyte Esterase Urine WBC (Auto) Urine RBC (Auto) Urine Casts (Auto) U Pathogenic Cast Auto U Epithel Cells (Auto) Urine Bacteria (Auto) Urine Yeast (Auto) ASSESSMENT/PLAN: 79 y/o male PMH insulin treated DM, HTN, HLD, CAD, CKD 3B, BL blindness, bph, chronic bladder outlet obstruction, and dementia c/o abdominal pain. UA and clinical presentation consistent with UTI. Must explore KIKI. # Complicated UTI - Past culture MRSA, strep, staph caog neg - Linezolid 600 mg IV BID - Ceftriaxone 1 g IV QD - Hydrate gently - Maintain Strong # KIKI on CKD 3b - BUN/Cr 47.6/1.5 - Chronic Strong placement given obstructive BPH - Hydrate gently - Maintain Strong - Prev visit CT: several RIGHT renal 1-3 mm non-obstructive calculi; RIGHT renal cysts. # Hyperglycemia - Poor medication compliance. - Educate care give/ - ISS - Social work # Elevated alk phos - No cholecystitis on prev CT - ?Liver/bile duct, ?CA (never had colonoscopy), never had DEXA # Hypoalbuminemia - Possibly d/t proteinuria, malnutrition, and inflammation assoc. with comorbid chronic conditions - Ensure adequate dietary protein intake - Consult transplant registered nurse # DM - Hold home regimen - ISS ACHS # HTN - Cont. curent home regimen # HLD - Cont. curent home regimen #F/E/N - NS - Cont. to monitor - Renal diet, low sodium, low fat/chol # DVT prophylaxis - Heparin SQ # Disposition - Admit to med/surg Patel Hermosillo MD Visit type - Emergency Visit Emergency Visit: Yes ED Registration Date: 10/31/19 Care time: The patient presented to the Emergency Department on the above date and was hospitalized for further evaluation of their emergent condition. - New Patient This patient is new to me today: Yes Date on this admission: 11/01/19 - Critical Care Critical Care patient: No ATTENDING PHYSICIAN STATEMENT I saw and evaluated the patient. I reviewed the resident's note and discussed the case with the resident. I agree with the resident's findings and plan as documented. SUBJECTIVE: OBJECTIVE: ASSESSMENT AND PLAN:
[2019-10-31] MEDS ORDERED: LINEZOLID 600 MG PREMIX BAG 600 MG in PREMIX 300 IVPB SCH (23:45)
[2019-11-01] MEDS ORDERED: PIPERACILLIN/TAZOB 4.5 GM 4.5 GM/100 ML BAG IVPB ONE (00:11)
[2019-11-01] MEDS: LINEZOLID 600 MG PREMIX BAG 600 MG/300 ML BAG IVPB SCH ×3 (03:15→14:23)
[2019-11-01 07:38] LABS: HEMATOCRIT 33.7 % (35.4-49); HEMOGLOBIN 11.1 GM/dL (11.7-16.9); MCH 27.4 pg (25.7-33.7); MEAN CELL VOLUME 83.2 fl (80-96); MEAN PLT VOLUME 9.3 fl (7.5-11.1); PLATELET COUNT 151 K/MM3 (134-434); RBC 4.05 M/mm3 (4.00-5.60); RDW 15.2 % (11.9-15.9); WHITE BLOOD COUNT 13.5 K/mm3 (4.0-10.0)
[2019-11-01 07:43] LABS: BLOOD UREA NITROGEN 32.9 mg/dL (7-18); CALCIUM 8.9 mg/dL (8.5-10.1); CREATININE 1.2 mg/dL (0.55-1.3); POTASSIUM 3.8 mmol/L (3.5-5.1)
[2019-11-01] MEDS ORDERED: CEFTRIAXONE 1 GM/50 ML BAG ONE (09:26)
[2019-11-01] MEDS: CEFTRIAXONE 1 GM in DEXTROSE 5%-WATER - 50 ML IVPB SCH (09:45)
[2019-11-01] MEDS: SODIUM CHLORIDE 1,000 ML IV SCH ×4 (09:45→19:27)
[2019-11-01] MEDS: INSULIN SLIDING SCALE (NOVOLOG) 1 VIAL SQ SCH ×3 (10:45→19:26)
--- NOTE | 2019-11-01 11:42 | EKG ---
Test Reason : Blood Pressure : / mmHG Vent. Rate : 079 BPM Atrial Rate : 079 BPM P-R Int : 154 ms QRS Dur : 086 ms QT Int : 412 ms P-R-T Axes : 010 045 071 degrees QTc Int : 472 ms NORMAL SINUS RHYTHM NORMAL ECG WHEN COMPARED WITH ECG OF 04-OCT-2019 09:42, NONSPECIFIC T WAVE ABNORMALITY NO LONGER EVIDENT IN INFERIOR LEADS Confirmed by COOPER WILLS MD ([id number]) on 11/01/2019 11:42:16 AM Referred By: Confirmed By:COOPER WILLS MD
[2019-11-01 13:35] LABS: MCH 27.3 pg (25.7-33.7); MCHC 33.2 g/dl (32.0-35.9); MEAN CELL VOLUME 82.4 fl (80-96); MEAN PLT VOLUME 9.1 fl (7.5-11.1); PLATELET COUNT 168 K/MM3 (134-434); RBC 4.01 M/mm3 (4.00-5.60); RDW 15.5 % (11.9-15.9); WHITE BLOOD COUNT 12.4 K/mm3 (4.0-10.0)
[2019-11-01 14:01] LABS: ALBUMIN 2.6 g/dl (3.4-5.0); BILIRUBIN,TOTAL 0.3 mg/dL (0.2-1); BLOOD UREA NITROGEN 28.6 mg/dL (7-18); CALCIUM 9.1 mg/dL (8.5-10.1); CREATININE 1.4 mg/dL (0.55-1.3); MAGNESIUM 2.5 mg/dL (1.8-2.4); PHOSPHOROUS 2.2 mg/dL (2.5-4.9); POTASSIUM 4.2 mmol/L (3.5-5.1)
[2019-11-01] MEDS ORDERED: ALBUTEROL SO4 8 GM HFA INHALER IH PRN (14:14)
[2019-11-01] MEDS ORDERED: POLYETHYLENE GLYCOL 3350 119 GM BTL PO PRN (14:14)
--- NOTE | 2019-11-01 15:02 | PN ---
Physical Exam: SUBJECTIVE: Patient seen and examined at the bedside. Patient laying in bed in mild discomfort. Unable to provide ROS due to dementia. Is oriented x1. Family noting that old catheter was placed over 30 days ago and changed in ED on this admission. OBJECTIVE: Vital Signs Period Temp Pulse Resp BP Sys/Poole Pulse Ox Last 24 Hr 98.1 F-98.7 F 70-76 18-22 130-156/54-68 99-100 GENERAL: AOx1 to person, speaks Malayalam HEAD: Normocephalic and atraumatic EYES: BL diabetic keratopahy, opaque cornea R>L ENT: Oropharynx clear without exudates. Moist mucous membranes. NECK: No lymphadenopathy, JVD, or masses. LUNGS: Clear to auscultation bilaterally. No wheezes, and no crackles. No accessory muscle use. HEART: Regular rate and rhythm, no murmurs, rubs appreciated. ABDOMEN: Tender to palpation in suprapubic region, guarding, soft, BS present in all 4 quadrants, non-distended UPPER EXTREMITIES: RIGHT UE contracted. 2+ pulses, warm, well-perfused. No cyanosis. No clubbing. No peripheral edema. LOWER EXTREMITIES: 2+ pulses, warm, well-perfused. No calf tenderness. No peripheral edema. Dry. NEUROLOGICAL: Dysarthria. Contracted RUE. LUE 4/5 power. Unable to comply with rest of neurological exam SKIN: Dry. Diffuse excorations on chest L>R. Vertical sternal scar. Laboratory Results - last 24 hr 10/31/19 10/31/19 10/31/19 16:44 18:20 18:20 WBC 15.3 H RBC 4.46 Hgb 12.3 Hct 37.1 D MCV 83.2 MCH 27.6 MCHC 33.2 RDW 15.5 Plt Count 187 MPV 9.4 D Absolute Neuts (auto) 10.2 H Neutrophils % 66.6 Lymphocytes % 18.0 D Monocytes % 10.1 Eosinophils % 4.7 H Basophils % 0.6 Nucleated RBC % 0 VBG pH POC VBG pCO2 POC VBG pO2 VBG HCO3 VBG O2 Sat ([place]i) VBG Base Excess Sodium Cancelled Potassium Cancelled Chloride Cancelled Carbon Dioxide Cancelled Anion Gap Cancelled BUN Cancelled Creatinine Cancelled Est GFR (CKD-EPI)AfAm Cancelled Est GFR (CKD-EPI)NonAf Cancelled POC Glucometer 417 Random Glucose Cancelled Hemoglobin A1c % Lactic Acid Calcium Cancelled Phosphorus Magnesium Total Bilirubin Cancelled AST Cancelled ALT Cancelled Alkaline Phosphatase Cancelled Creatine Kinase Troponin I Total Protein Cancelled Albumin Cancelled Urine Color Urine Appearance Urine pH Ur Specific [place] Urine Protein Urine Glucose (UA) Urine Ketones Urine Blood Urine Nitrite Urine Bilirubin Urine Urobilinogen Ur Leukocyte Esterase Urine WBC (Auto) Urine RBC (Auto) Urine Casts (Auto) U Pathogenic Cast Auto U Epithel Cells (Auto) Urine Bacteria (Auto) Urine Yeast (Auto) 10/31/19 10/31/19 10/31/19 18:20 18:20 18:20 WBC RBC Hgb Hct MCV MCH MCHC RDW Plt Count MPV Absolute Neuts (auto) Neutrophils % Lymphocytes % Monocytes % Eosinophils % Basophils % Nucleated RBC % VBG pH 7.37 POC VBG pCO2 48.5 POC VBG pO2 < 49 H VBG HCO3 27.2 VBG O2 Sat ([place]i) 61.8 L VBG Base Excess 1.7 Sodium Potassium Chloride Carbon Dioxide Anion Gap BUN Creatinine Est GFR (CKD-EPI)AfAm Est GFR (CKD-EPI)NonAf POC Glucometer Random Glucose Hemoglobin A1c % Lactic Acid Calcium Phosphorus Magnesium Total Bilirubin AST ALT Alkaline Phosphatase Creatine Kinase Cancelled Troponin I Cancelled Total Protein Albumin Urine Color Yellow Urine Appearance Cloudy Urine pH 5.5 Ur Specific [place] 1.013 Urine Protein 1+ H Urine Glucose (UA) 3+ H Urine Ketones Negative Urine Blood 2+ H Urine Nitrite Positive H Urine Bilirubin Negative Urine Urobilinogen 0.2 Ur Leukocyte Esterase 2+ H Urine WBC (Auto) 268 Urine RBC (Auto) 23 Urine Casts (Auto) 2 U Pathogenic Cast Auto None U Epithel Cells (Auto) 0.9 Urine Bacteria (Auto) 1895.1 Urine Yeast (Auto) Few 10/31/19 10/31/19 11/01/19 19:39 21:00 06:20 WBC RBC Hgb Hct MCV MCH MCHC RDW Plt Count MPV Absolute Neuts (auto) Neutrophils % Lymphocytes % Monocytes % Eosinophils % Basophils % Nucleated RBC % VBG pH POC VBG pCO2 POC VBG pO2 VBG HCO3 VBG O2 Sat ([place]) VBG Base Excess Sodium 136 Potassium 4.1 Chloride 102 Carbon Dioxide 27 Anion Gap 7 L BUN 47.6 H Creatinine 1.5 H Est GFR (CKD-EPI)AfAm 50.59 Est GFR (CKD-EPI)NonAf 43.65 POC Glucometer Random Glucose 345 H Hemoglobin A1c % 9.5 H Lactic Acid 1.2 Calcium 9.2 Phosphorus Magnesium Total Bilirubin 0.3 AST 16 ALT 17 Alkaline Phosphatase 144 H Creatine Kinase 146 Troponin I < 0.02 Total Protein 7.5 Albumin 3.0 L Urine Color Urine Appearance Urine pH Ur Specific [place] Urine Protein Urine Glucose (UA) Urine Ketones Urine Blood Urine Nitrite Urine Bilirubin Urine Urobilinogen Ur Leukocyte Esterase Urine WBC (Auto) Urine RBC (Auto) Urine Casts (Auto) U Pathogenic Cast Auto U Epithel Cells (Auto) Urine Bacteria (Auto) Urine Yeast (Auto) 11/01/19 11/01/19 11/01/19 06:20 06:20 07:54 WBC 13.5 H RBC 4.05 Hgb 11.1 L Hct 33.7 L MCV 83.2 MCH 27.4 MCHC 33.0 RDW 15.2 Plt Count 151 MPV 9.3 Absolute Neuts (auto) Neutrophils % Lymphocytes % Monocytes % Eosinophils % Basophils % Nucleated RBC % VBG pH POC VBG pCO2 POC VBG pO2 VBG HCO3 VBG O2 Sat ([place]) VBG Base Excess Sodium 139 Potassium 3.8 Chloride 105 Carbon Dioxide 27 Anion Gap 6 L BUN 32.9 H Creatinine 1.2 Est GFR (CKD-EPI)AfAm 66.26 Est GFR (CKD-EPI)NonAf 57.17 POC Glucometer Random Glucose 321 H Hemoglobin A1c % Lactic Acid 1.2 Calcium 8.9 Phosphorus Magnesium Total Bilirubin AST ALT Alkaline Phosphatase Creatine Kinase Troponin I Total Protein Albumin Urine Color Urine Appearance Urine pH Ur Specific [place] Urine Protein Urine Glucose (UA) Urine Ketones Urine Blood Urine Nitrite Urine Bilirubin Urine Urobilinogen Ur Leukocyte Esterase Urine WBC (Auto) Urine RBC (Auto) Urine Casts (Auto) U Pathogenic Cast Auto U Epithel Cells (Auto) Urine Bacteria (Auto) Urine Yeast (Auto) 11/01/19 11/01/19 11/01/19 10:45 13:25 13:25 WBC 12.4 H RBC 4.01 Hgb 11.0 L Hct 33.0 L MCV 82.4 MCH 27.3 MCHC 33.2 RDW 15.5 Plt Count 168 MPV 9.1 Absolute Neuts (auto) Neutrophils % Lymphocytes % Monocytes % Eosinophils % Basophils % Nucleated RBC % VBG pH POC VBG pCO2 POC VBG pO2 VBG HCO3 VBG O2 Sat ([place]) VBG Base Excess Sodium 140 Potassium 4.2 Chloride 106 Carbon Dioxide 28 Anion Gap 6 L BUN 28.6 H Creatinine 1.4 H Est GFR (CKD-EPI)AfAm 54.99 Est GFR (CKD-EPI)NonAf 47.45 POC Glucometer 392 Random Glucose 437 H* Hemoglobin A1c % Lactic Acid Calcium 9.1 Phosphorus 2.2 L Magnesium 2.5 H Total Bilirubin 0.3 AST 13 L ALT 15 Alkaline Phosphatase 125 H Creatine Kinase Troponin I Total Protein 7.0 Albumin 2.6 L Urine Color Urine Appearance Urine pH Ur Specific [place] Urine Protein Urine Glucose (UA) Urine Ketones Urine Blood Urine Nitrite Urine Bilirubin Urine Urobilinogen Ur Leukocyte Esterase Urine WBC (Auto) Urine RBC (Auto) Urine Casts (Auto) U Pathogenic Cast Auto U Epithel Cells (Auto) Urine Bacteria (Auto) Urine Yeast (Auto) Active Medications Generic Name Dose Route Start Last Admin Trade Name Freq PRN Reason Stop Dose Admin Albuterol Sulfate 2 puff 11/01/19 14:14 Ventolin Hfa Inhaler - IH Q4H PRN WHEEZING Atorvastatin Calcium 80 mg 11/01/19 22:00 Lipitor - PO HS DAISHA Ezetimibe 10 mg 11/01/19 22:00 Zetia - PO HS DAISHA Furosemide 80 mg 11/02/19 10:00 Lasix - PO DAILY DAISHA Heparin Sodium (Porcine) 5,000 unit 11/01/19 18:00 Heparin - SQ Q8H-IV DAISHA Linezolid 600 mg/ 300 mls @ 300 mls/hr 10/31/19 23:45 Miscellaneous IVPB Q12H [facility] Protocol Ceftriaxone Sodium 1 gm/ 50 mls @ 100 mls/hr 11/01/19 10:00 11/01/19 09:45 Dextrose IVPB 100 mls/hr DAILY DAISHA Administration Insulin Aspart 1 vial 11/01/19 11:00 11/01/19 10:47 Novolog Vial Sliding Scale - SQ 8 unit TIDAC [facility] Administration Protocol Insulin Detemir 22 units 11/02/19 07:00 Levemir Vial SQ AM DAISHA Nebivolol 2.5 mg 11/01/19 22:00 Bystolic - PO HS DAISHA Polyethylene Glycol 17 gm 11/01/19 14:14 Miralax (For Daily Use) - PO DAILY PRN CONSTIPATION ASSESSMENT/PLAN: Jerel Adame is a 79 year old male with a past medical history of IDDM, HTN , HLD, CAD, CKD 3B, BL blindness, bph, chronic bladder outlet obstruction, and dementia c/o abdominal pain. UA and clinical presentation consistent with UTI. Must explore KIKI. Altered mental status, likely in setting of UTI - Past culture MRSA, strep, staph caog neg - Linezolid 600 mg IV BID - Ceftriaxone 1 g IV QD - leukocytosis trending down since admission - Maintain Arguello - UA + for nitrites, 2+ LE, 268 WBC, 1895 bacteria - UCx pending - recent slurred speech as noted by family, head CT negative for acute pathology , + for NPH - Neurology, Dr. Michel consulted - Physical therapy KIKI on CKD 3b - CRE 1.5 on admission, currently 1.4 - Arguello placement given obstructive BPH, not chronic arguello - Maintain Arguello - restart home Lasix in the morning, monitor volume status - BP within normal limits - NS @42cc/hr, careful with fluids in setting of patient's hx of grade I diastolic dysfunction and LVH - Renal U/S noting R kidney is normal, cannot evaluate L kidney due to patient non-cooperation Elevated alk phos - No cholecystitis on prev CT - unknown origin, trending down, no evidence of liver/gallbladder pathology, continue to monitor Hypoalbuminemia - Possibly d/t proteinuria, malnutrition, and inflammation assoc. with comorbid chronic conditions - Ensure adequate dietary protein intake - Consult genetics teacher DM - Home Levemir 24 units subq as per family member - ISS ACHS - BGM - A1c 9.5 HTN - Cont. curent home regimen HLD - Cont. curent home regimen Hx of CAD - holding Plavix due to family request as patient previously had hematuria - watch for hematria while patient on heparin F/E/N - NS at 42cc/hr, careful with fluid in setting patient's diastolic dysfunction - Continue to monitor electrolytes and replete as necessary - Diabetic diet DVT prophylaxis - Heparin 5000 units Subq tid Disposition - Continue to monitor on med/surg Visit type - Emergency Visit Emergency Visit: Yes ED Registration Date: 10/31/19 Care time: The patient presented to the Emergency Department on the above date and was hospitalized for further evaluation of their emergent condition. - New Patient This patient is new to me today: Yes Date on this admission: 11/01/19 - Critical Care Critical Care patient: No
[2019-11-01] MEDS: HEPARIN NA (PORCINE) 5,000 UNITS/ML 1ML VIAL SQ SCH ×2 (17:07→18:00)
[2019-11-01] MEDS ORDERED: HEPARIN NA (PORCINE) 5,000 UNITS/ML 1ML VIAL ONE (17:43)
--- NOTE | 2019-11-01 19:10 | PN ---
Teaching Attending Note Name of Resident: Stevie Deyr ATTENDING PHYSICIAN STATEMENT I saw and evaluated the patient. I reviewed the resident's note and discussed the case with the resident. I agree with the resident's findings and plan as documented. SUBJECTIVE: Unable to provide history. History taken from son at bedside - 2 days of lethargy and suprapubic pain after missing urology appt for arguello replacement. OBJECTIVE: Afebrile, Hemodynamically Stable Last Vital Signs Temp Pulse Resp BP Pulse Ox 98.0 F 61 18 124/51 L 99 11/01/19 17:47 11/01/19 17:47 11/01/19 17:47 11/01/19 17:47 11/01/19 17:47 HEENT - Atraumatic, normocephalic Heart - S1, S2, RRR Lungs - good air entry bilaterally Abdomen - Soft, non-tender. Extremtiies - chronic venous stasis skin changes LEs. Neuro - Disoriented. Moving all extremities. No focal weakness. Laboratory Results - last 24 hr 10/31/19 10/31/19 10/31/19 18:20 18:20 18:20 WBC RBC Hgb Hct MCV MCH MCHC RDW Plt Count MPV Sodium Cancelled Potassium Cancelled Chloride Cancelled Carbon Dioxide Cancelled Anion Gap Cancelled BUN Cancelled Creatinine Cancelled Est GFR (CKD-EPI)AfAm Cancelled Est GFR (CKD-EPI)NonAf Cancelled POC Glucometer Random Glucose Cancelled Hemoglobin A1c % Lactic Acid Calcium Cancelled Phosphorus Magnesium Total Bilirubin Cancelled AST Cancelled ALT Cancelled Alkaline Phosphatase Cancelled Creatine Kinase Cancelled Troponin I Cancelled Total Protein Cancelled Albumin Cancelled U Pathogenic Cast Auto None Urine Yeast (Auto) Few 10/31/19 10/31/19 11/01/19 19:39 21:00 06:20 WBC RBC Hgb Hct MCV MCH MCHC RDW Plt Count MPV Sodium 136 Potassium 4.1 Chloride 102 Carbon Dioxide 27 Anion Gap 7 L BUN 47.6 H Creatinine 1.5 H Est GFR (CKD-EPI)AfAm 50.59 Est GFR (CKD-EPI)NonAf 43.65 POC Glucometer Random Glucose 345 H Hemoglobin A1c % 9.5 H Lactic Acid 1.2 Calcium 9.2 Phosphorus Magnesium Total Bilirubin 0.3 AST 16 ALT 17 Alkaline Phosphatase 144 H Creatine Kinase 146 Troponin I < 0.02 Total Protein 7.5 Albumin 3.0 L U Pathogenic Cast Auto Urine Yeast (Auto) 11/01/19 11/01/19 11/01/19 06:20 06:20 07:54 WBC 13.5 H RBC 4.05 Hgb 11.1 L Hct 33.7 L MCV 83.2 MCH 27.4 MCHC 33.0 RDW 15.2 Plt Count 151 MPV 9.3 Sodium 139 Potassium 3.8 Chloride 105 Carbon Dioxide 27 Anion Gap 6 L BUN 32.9 H Creatinine 1.2 Est GFR (CKD-EPI)AfAm 66.26 Est GFR (CKD-EPI)NonAf 57.17 POC Glucometer Random Glucose 321 H Hemoglobin A1c % Lactic Acid 1.2 Calcium 8.9 Phosphorus Magnesium Total Bilirubin AST ALT Alkaline Phosphatase Creatine Kinase Troponin I Total Protein Albumin U Pathogenic Cast Auto Urine Yeast (Auto) 11/01/19 11/01/19 11/01/19 10:45 13:25 13:25 WBC 12.4 H RBC 4.01 Hgb 11.0 L Hct 33.0 L MCV 82.4 MCH 27.3 MCHC 33.2 RDW 15.5 Plt Count 168 MPV 9.1 Sodium 140 Potassium 4.2 Chloride 106 Carbon Dioxide 28 Anion Gap 6 L BUN 28.6 H Creatinine 1.4 H Est GFR (CKD-EPI)AfAm 54.99 Est GFR (CKD-EPI)NonAf 47.45 POC Glucometer 392 Random Glucose 437 H* Hemoglobin A1c % Lactic Acid Calcium 9.1 Phosphorus 2.2 L Magnesium 2.5 H Total Bilirubin 0.3 AST 13 L ALT 15 Alkaline Phosphatase 125 H Creatine Kinase Troponin I Total Protein 7.0 Albumin 2.6 L U Pathogenic Cast Auto Urine Yeast (Auto) Current Medications Generic Name Dose Route Start Last Admin Trade Name Freq PRN Reason Stop Dose Admin Albuterol Sulfate 2 puff 11/01/19 14:14 Ventolin Hfa Inhaler - IH Q4H PRN WHEEZING Atorvastatin Calcium 80 mg 11/01/19 22:00 Lipitor - PO HS DAISHA Ezetimibe 10 mg 11/01/19 22:00 Zetia - PO HS DAISHA Heparin Sodium (Porcine) 5,000 unit 11/01/19 18:00 11/01/19 18:00 Heparin - SQ 5,000 unit Q8H-IV DAISHA Administration Linezolid 600 mg/ 300 mls @ 300 mls/hr 10/31/19 23:45 Miscellaneous IVPB Q12H [facility] Protocol Ceftriaxone Sodium 1 gm/ 50 mls @ 100 mls/hr 11/01/19 10:00 11/01/19 09:45 Dextrose IVPB 100 mls/hr DAILY DAISHA Administration Sodium Chloride 1,000 mls @ 42 mls/hr 11/01/19 16:45 11/01/19 17:07 Normal Saline - IV 42 mls/hr ASDIR DAISHA Administration Insulin Aspart 1 vial 11/01/19 11:00 11/01/19 10:47 Novolog Vial Sliding Scale - SQ 8 unit TIDAC [facility] Administration Protocol Insulin Detemir 24 units 11/02/19 07:00 Levemir Vial SQ AM DAISHA Nebivolol 2.5 mg 11/01/19 22:00 Bystolic - PO HS [facility] Polyethylene Glycol 17 gm 11/01/19 14:14 Miralax (For Daily Use) - PO DAILY PRN CONSTIPATION Home Medications Medication Instructions Recorded Atorvastatin Ca [Lipitor] 80 mg PO DAILY 05/06/19 Ezetimibe 10 mg PO HS 05/06/19 Nebivolol HCl [Bystolic] 2.5 mg PO HS 05/06/19 Insulin Sliding Scale [Novolog 1 vial SQ ACHS units 09/06/19 Vial Sliding Scale -] Insulin (Levemir) [Levemir Vial] 22 units SQ DAILY 10/04/19 Ferrous Sulfate [Feosol] 325 mg PO DAILY ud 10/10/19 Polyethylene Glycol 3350 [Miralax 17 gm PO DAILY PRN bottle 10/10/19 119 gm Btl -] Albuterol Sulfate Inhaler - 2 inh PO Q4H PRN 10/31/19 [Ventolin Hfa Inhaler -] Ipratropium 0.02% Nebulizer 1 amp NEB Q6H PRN 10/31/19 [Atrovent 0.02% Nebulizer -] Clopidogrel Bisulfate [Plavix] 75 mg PO DAILY 11/01/19 Furosemide [Lasix -] 80 mg PO DAILY 11/01/19 ASSESSMENT AND PLAN: 79 year old male with Dementia, DM 2, HTN, HLD, CAD s/p CABG, CKD 3, Blindness 2 /2 diabetic keratopathy, BPH, Chronic bladder outlet obstruction s/p indwelling arguello presents with listlessness, lethargy, suprapubic pain for 2 days. 1. Complicated UTI, catheter associated. Urine Cx requested, Arguello exchanged. Afebrile, Hemodynamically Stable. Hx of MRSA UTI - covered with Ceftriaxone and Linezolid. IV hydration. 2. KIKI on CKD 3 CT A/P on prior visit - several RIGHT renal 1-3 mm non-obstructive calculi; RIGHT renal cysts. Renal US Lasix held. IV Hydration 3. Hyperglycemia, background DM 2 - Insulin Levemir and Novolog as per sliding scale. 4. Hypoalbuminemia sec to malnutrition Dietary consulted for nutrition recommendations. 5. HTN - Continue Nebivolol. 6. Chronic Diastolic CHF - Continue BB. Will hold Lasix held in favor of hydration. 7. HLD - Continue Statin. DVT Px - Heparin SQ
[2019-11-01] MEDS: NEBIVOLOL 2.5 MG TABLET (FP) PO SCH (22:53)
[2019-11-01] MEDS: EZETIMIBE 10 MG TABLET (FP) PO SCH (22:53)
[2019-11-01] MEDS: ATORVASTATIN CA 80 MG TABLET (FP) PO SCH (22:53)
[2019-11-02] MEDS: HEPARIN NA (PORCINE) 5,000 UNITS/ML 1ML VIAL SQ SCH ×3 (01:46→18:11)
[2019-11-02] MEDS: INSULIN (LEVEMIR) 100 UNITS/ML UNITS SQ SCH (06:56)
[2019-11-02] MEDS: INSULIN SLIDING SCALE (NOVOLOG) 1 VIAL SQ SCH ×3 (06:57→17:06)
[2019-11-02] MEDS: SODIUM CHLORIDE 1,000 ML IV SCH ×2 (06:58→11:20)
[2019-11-02] MEDS ORDERED: INSULIN (LEVEMIR) 100 UNITS/ML UNITS SQ SCH (07:00)
[2019-11-02] MEDS ORDERED: cefTRIAXone SODIUM 1 GM VIAL ONE (08:41)
[2019-11-02] MEDS ORDERED: DEXTROSE 5%-WATER - 50 ML IVPB ONE (08:41)
[2019-11-02] MEDS ORDERED: PT OWN MED DRAWER 7, Y5N ONE (08:41)
[2019-11-02 09:11] LABS: HEMATOCRIT 31.7 % (35.4-49); HEMOGLOBIN 10.4 GM/dL (11.7-16.9); MCH 27.6 pg (25.7-33.7); MCHC 32.7 g/dl (32.0-35.9); MEAN CELL VOLUME 84.5 fl (80-96); MEAN PLT VOLUME 9.5 fl (7.5-11.1); PLATELET COUNT 164 K/MM3 (134-434); RBC 3.76 M/mm3 (4.00-5.60); RDW 15.3 % (11.9-15.9)
[2019-11-02 09:45] LABS: BLOOD UREA NITROGEN 23.6 mg/dL (7-18); CALCIUM 8.9 mg/dL (8.5-10.1); CREATININE 1.2 mg/dL (0.55-1.3); MAGNESIUM 2.5 mg/dL (1.8-2.4); PHOSPHOROUS 2.3 mg/dL (2.5-4.9); POTASSIUM 3.9 mmol/L (3.5-5.1)
[2019-11-02] MEDS: CEFTRIAXONE 1 GM in DEXTROSE 5%-WATER - 50 ML IVPB SCH (09:55)
[2019-11-02] MEDS ORDERED: FUROSEMIDE 40 MG TABLET (FP) PO SCH (10:00)
[2019-11-02] MEDS ORDERED: SODIUM CHLORIDE IVPB ONE (11:00)
[2019-11-02] MEDS ORDERED: POTASSIUM PHOSPHATE IVPB ONE (11:00)
[2019-11-02] MEDS: FUROSEMIDE 40 MG TABLET (FP) PO SCH (11:19)
--- NOTE | 2019-11-02 12:03 | PN ---
Physical Exam: SUBJECTIVE: Patient seen and examined at the bedside. Patient is awake and oriented to person and hospital (does not know name of hospital). Does not endorse any discomfort or pain. Intermittently answers questions. Follows some basic commands. OBJECTIVE: Vital Signs Period Temp Pulse Resp BP Sys/Poole Pulse Ox Last 24 Hr 98.0 F-98.3 F 61-73 18-20 103-138/49-69 99-99 GENERAL: AOx1 to person, speaks Malayalam HEAD: Normocephalic and atraumatic EYES: BL diabetic keratopahy, opaque cornea R>L ENT: Oropharynx clear without exudates. Moist mucous membranes. NECK: No lymphadenopathy, JVD. LUNGS: Poor effort on respirations. No auscultated wheezes and no crackles. No accessory muscle use. HEART: Regular rate and rhythm, no murmurs, rubs appreciated. ABDOMEN: Non-tender, no guarding, soft, BS present in all 4 quadrants, non- distended UPPER EXTREMITIES: Moves arms spontaneously. 2+ pulses, warm, well-perfused. No cyanosis. No clubbing. No peripheral edema. LOWER EXTREMITIES: 2+ pulses, warm, well-perfused. No calf tenderness. Trace peripheral edema in feet. Dry. NEUROLOGICAL: Dysarthria. LUE 4/5 power. Unable to comply with rest of neurological exam SKIN: Dry. Diffuse excorations on chest L>R. Vertical sternal scar. Chronic venous stasis dermatitis on bilateral leg. Laboratory Results - last 24 hr 11/01/19 11/01/19 11/01/19 13:25 13:25 19:18 WBC 12.4 H RBC 4.01 Hgb 11.0 L Hct 33.0 L MCV 82.4 MCH 27.3 MCHC 33.2 RDW 15.5 Plt Count 168 MPV 9.1 Sodium 140 Potassium 4.2 Chloride 106 Carbon Dioxide 28 Anion Gap 6 L BUN 28.6 H Creatinine 1.4 H Est GFR (CKD-EPI)AfAm 54.99 Est GFR (CKD-EPI)NonAf 47.45 POC Glucometer 356 Random Glucose 437 H* Calcium 9.1 Phosphorus 2.2 L Magnesium 2.5 H Total Bilirubin 0.3 AST 13 L ALT 15 Alkaline Phosphatase 125 H Total Protein 7.0 Albumin 2.6 L 11/01/19 11/02/19 11/02/19 22:17 06:24 08:00 WBC RBC Hgb Hct MCV MCH MCHC RDW Plt Count MPV Sodium 144 Potassium 3.9 Chloride 109 H Carbon Dioxide 24 Anion Gap 10 BUN 23.6 H Creatinine 1.2 Est GFR (CKD-EPI)AfAm 66.26 Est GFR (CKD-EPI)NonAf 57.17 POC Glucometer 267 330 Random Glucose 321 H Calcium 8.9 Phosphorus 2.3 L Magnesium 2.5 H Total Bilirubin AST ALT Alkaline Phosphatase Total Protein Albumin 11/02/19 11/02/19 08:01 11:15 WBC 12.0 H RBC 3.76 L Hgb 10.4 L Hct 31.7 L MCV 84.5 MCH 27.6 MCHC 32.7 RDW 15.3 Plt Count 164 MPV 9.5 Sodium Potassium Chloride Carbon Dioxide Anion Gap BUN Creatinine Est GFR (CKD-EPI)AfAm Est GFR (CKD-EPI)NonAf POC Glucometer 278 Random Glucose Calcium Phosphorus Magnesium Total Bilirubin AST ALT Alkaline Phosphatase Total Protein Albumin Active Medications Generic Name Dose Route Start Last Admin Trade Name Freq PRN Reason Stop Dose Admin Albuterol Sulfate 2 puff 11/01/19 14:14 Ventolin Hfa Inhaler - IH Q4H PRN WHEEZING Atorvastatin Calcium 80 mg 11/01/19 22:00 11/01/19 22:53 Lipitor - PO Not Given HS DAISHA Ezetimibe 10 mg 11/01/19 22:00 11/01/19 22:53 Zetia - PO 10 mg HS DAISHA Administration Furosemide 40 mg 11/02/19 10:45 11/02/19 11:19 Lasix - PO 40 mg DAILY DAISHA Administration Heparin Sodium (Porcine) 5,000 unit 11/01/19 18:00 11/02/19 09:55 Heparin - SQ 5,000 unit Q8H-IV DAISHA Administration Ceftriaxone Sodium 1 gm/ 50 mls @ 100 mls/hr 11/01/19 10:00 11/02/19 09:55 Dextrose IVPB 100 mls/hr DAILY DAISHA Administration Potassium Phosphate 30 mm/ 510 mls @ 62.5 mls/hr 11/02/19 11:00 Sodium Chloride IVPB 11/02/19 19:09 ONCE ONE Insulin Aspart 1 vial 11/01/19 11:00 11/02/19 11:54 Novolog Vial Sliding Scale - SQ 4 unit TIDAC DAISHA Administration Protocol Insulin Detemir 24 units 11/02/19 07:00 11/02/19 06:56 Levemir Vial SQ 24 units AM DAISHA Administration Nebivolol 2.5 mg 11/01/19 22:00 11/01/19 22:53 Bystolic - PO 2.5 mg HS DAISHA Administration Polyethylene Glycol 17 gm 11/01/19 14:14 Miralax (For Daily Use) - PO DAILY PRN CONSTIPATION ASSESSMENT/PLAN: Jerel Adame is a 79 year old male with a past medical history of IDDM, HTN , HLD, CAD, CKD 3B, BL blindness, bph, chronic bladder outlet obstruction, and dementia c/o abdominal pain. UA and clinical presentation consistent with UTI. Must explore KIKI. Altered mental status, likely in setting of UTI - Ceftriaxone 1 g IV QD - linezolid d/c (originally ordered due to hx of MRSA in urine) - leukocytosis trending down since admission - Maintain Arguello - UA + for nitrites, 2+ LE, 268 WBC, 1895 bacteria - UCx growing lactose fermenting GNB - recent slurred speech as noted by family, head CT negative for acute pathology , + for NPH - Neurology, Dr. Michel consulted - Physical therapy - TSH, B12, RPR KIKI on CKD 3b - CRE 1.5 on admission, currently 1.2 (baseline - Arguello placement given obstructive BPH, not chronic arguello - Maintain Arguello, will need to f/u with urology for arguello care - home Lasix, monitor volume status - BP within normal limits - careful with fluids in setting of patient's hx of grade I diastolic dysfunction and LVH - Renal U/S noting R kidney is normal, cannot evaluate L kidney due to patient non-cooperation Elevated alk phos - No cholecystitis on prev CT - unknown origin, trending down, no evidence of liver/gallbladder pathology, continue to monitor Hypoalbuminemia - Possibly d/t proteinuria, malnutrition, and inflammation assoc. with comorbid chronic conditions - Ensure adequate dietary protein intake - Consult safety instruction police officer DM - Home Levemir 24 units subq as per family member - ISS ACHS - BGM - A1c 9.5 HTN - Cont. curent home regimen HLD - Cont. curent home regimen Hx of CAD - holding Plavix due to family request as patient previously had hematuria - watch for hematria while patient on heparin F/E/N - no standing fluids - Continue to monitor electrolytes and replete as necessary. Hypophosphatemia noted and repleted - Diabetic puree diet DVT prophylaxis - Heparin 5000 units Subq tid Disposition - Continue to monitor on med/surg - rell Garces for any updates on patient Visit type - Emergency Visit Emergency Visit: Yes ED Registration Date: 10/31/19 Care time: The patient presented to the Emergency Department on the above date and was hospitalized for further evaluation of their emergent condition. - New Patient This patient is new to me today: No - Critical Care Critical Care patient: No
--- NOTE | 2019-11-02 12:26 | CONSULT ---
Consult - text type - Consultation Consultation Note: NEUROLOGY CONSULTATION is greatly appreciated: Event reviewed and discussed with RN last night. Patient examined with his at the bedside. 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 Now admitted with lethargy. WBC=15K and Urine FVO=516. CT of head (reviewed): Severe, diffuse, atrophy and ex vacuo hydrocephalus. On ceftriaxone. PENNY: Neck rigid in all directions. Kernig- No bruits. Cor reg. Feley cath in situ Neuro: Awake. Resting with eyes closed. opens eyes and gibberish speech to sternal pressure. Full EOM's. No response to threat. No facial. Gag OK Purposeful movements of both arms, symmetrical Contractures both knees. Withdraws both feet symmetrically Decreased KJ's absent AJ's. Plantars silent. Feels pinch throughout. IMP: Severe, B/L cerebral dysfunction (OMS/Chronic). Most likely Alzheimer's disease. Toxic-metabolic Encephalopathy (UTI/Urosepsis) SUGGEST: Continue antibiotics and hydration. If Strong is to be left in place, D/C tamsulosin. Surveillance UA' s. Check B12, TSH, RPR Review prior neuroimaging to exclude primary hydrocephalus. Bedside PT vs. Contractures. No role for cholinesterase inhibitors at this juncture. Thank you very much, Malik Michel MD
--- NOTE | 2019-11-02 15:19 | PN ---
Teaching Attending Note Name of Resident: Stevie Dyer ATTENDING PHYSICIAN STATEMENT I saw and evaluated the patient. I reviewed the resident's note and discussed the case with the resident. I agree with the resident's findings and plan as documented. SUBJECTIVE: Unable to provide history. OBJECTIVE: Tmax 99.9, Hemodynamically Stable. Appears comfortable. Fole draining clear urine. Last Vital Signs Temp Pulse Resp BP Pulse Ox 98.9 F 64 20 138/55 L 99 11/02/19 12:00 11/02/19 12:00 11/02/19 12:00 11/02/19 12:00 11/02/19 09:00 Heart - S1, S2, RRR Lungs - good air entry bilaterally Abdomen - Soft, non-tender. Extremtiies - chronic venous stasis skin changes LEs. Trace edema, Neuro - Disoriented. Moving all extremities. No focal weakness. Laboratory Results - last 24 hr 11/01/19 11/01/19 11/02/19 19:18 22:17 06:24 WBC RBC Hgb Hct MCV MCH MCHC RDW Plt Count MPV Sodium Potassium Chloride Carbon Dioxide Anion Gap BUN Creatinine Est GFR (CKD-EPI)AfAm Est GFR (CKD-EPI)NonAf POC Glucometer 356 267 330 Random Glucose Calcium Phosphorus Magnesium 11/02/19 11/02/19 11/02/19 08:00 08:01 11:15 WBC 12.0 H RBC 3.76 L Hgb 10.4 L Hct 31.7 L MCV 84.5 MCH 27.6 MCHC 32.7 RDW 15.3 Plt Count 164 MPV 9.5 Sodium 144 Potassium 3.9 Chloride 109 H Carbon Dioxide 24 Anion Gap 10 BUN 23.6 H Creatinine 1.2 Est GFR (CKD-EPI)AfAm 66.26 Est GFR (CKD-EPI)NonAf 57.17 POC Glucometer 278 Random Glucose 321 H Calcium 8.9 Phosphorus 2.3 L Magnesium 2.5 H Current Medications Generic Name Dose Route Start Last Admin Trade Name Freq PRN Reason Stop Dose Admin Albuterol Sulfate 2 puff 11/01/19 14:14 Ventolin Hfa Inhaler - IH Q4H PRN WHEEZING Atorvastatin Calcium 80 mg 11/01/19 22:00 11/01/19 22:53 Lipitor - PO Not Given HS DAISHA Ezetimibe 10 mg 11/01/19 22:00 11/01/19 22:53 Zetia - PO 10 mg HS DAISHA Administration Furosemide 40 mg 11/02/19 10:45 11/02/19 11:19 Lasix - PO 40 mg DAILY DAISHA Administration Heparin Sodium (Porcine) 5,000 unit 11/01/19 18:00 11/02/19 09:55 Heparin - SQ 5,000 unit Q8H-IV DAISHA Administration Ceftriaxone Sodium 1 gm/ 50 mls @ 100 mls/hr 11/01/19 10:00 11/02/19 09:55 Dextrose IVPB 100 mls/hr DAILY DAISHA Administration Potassium Phosphate 30 mm/ 510 mls @ 62.5 mls/hr 11/02/19 11:00 11/02/19 12: 46 Sodium Chloride IVPB 11/02/19 19:09 62.5 mls/hr ONCE ONE Administration Insulin Aspart 1 vial 11/01/19 11:00 11/02/19 11:54 Novolog Vial Sliding Scale - SQ 4 unit TIDAC DAISHA Administration Protocol Insulin Detemir 24 units 11/02/19 07:00 11/02/19 06:56 Levemir Vial SQ 24 units AM DAISHA Administration Nebivolol 2.5 mg 11/01/19 22:00 11/01/19 22:53 Bystolic - PO 2.5 mg HS DAISHA Administration Polyethylene Glycol 17 gm 11/01/19 14:14 Miralax (For Daily Use) - PO DAILY PRN CONSTIPATION Home Medications Medication Instructions Recorded Atorvastatin Ca [Lipitor] 80 mg PO DAILY 05/06/19 Ezetimibe 10 mg PO HS 05/06/19 Nebivolol HCl [Bystolic] 2.5 mg PO HS 05/06/19 Insulin Sliding Scale [Novolog 1 vial SQ ACHS units 09/06/19 Vial Sliding Scale -] Insulin (Levemir) [Levemir Vial] 22 units SQ DAILY 10/04/19 Ferrous Sulfate [Feosol] 325 mg PO DAILY ud 10/10/19 Polyethylene Glycol 3350 [Miralax 17 gm PO DAILY PRN bottle 10/10/19 119 gm Btl -] Albuterol Sulfate Inhaler - 2 inh PO Q4H PRN 10/31/19 [Ventolin Hfa Inhaler -] Ipratropium 0.02% Nebulizer 1 amp NEB Q6H PRN 10/31/19 [Atrovent 0.02% Nebulizer -] Clopidogrel Bisulfate [Plavix] 75 mg PO DAILY 11/01/19 Furosemide [Lasix -] 80 mg PO DAILY 11/01/19 ASSESSMENT AND PLAN: 79 year old male with Dementia, DM 2, HTN, HLD, CAD s/p CABG, Chronic Diastolic CHF, CKD 3, 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 1. Complicated UTI, catheter associated (Hx Bladder Outlet obstruction s/p indwelling arguello). Urine Cx pos for LFNB, Arguello exchanged in ED. Afebrile, Hemodynamically Stable. Leukocytosis improving. Continue Ceftriaxone and discontinue Linezolid (given empirically for Hx MRSA UTI). 2. KIKI on CKD 3 - resolved, Creat back to baseline CT A/P on prior visit - several RIGHT renal 1-3 mm non-obstructive calculi; RIGHT renal cysts. Renal US - no obstruction, medical renal disease Lasix resumed and IV hydration held. 3. Hyperglycemia, background uncontrolled DM 2 (A1C 9.5) - Insulin Levemir and Novolog as per sliding scale. 4. Acute Metabolic Encephalopathy sec to UTI on background Dementia CT Brain shows volume loss and ventricular dilatation, sggestive of NPH. Neurology consulted - suggest possible Alzheimer's, B12/TSH/RPR levels. ST recommends Dysphagia pureed diet. 5. Hypoalbuminemia sec to malnutrition Dietary consulted for nutrition recommendations. 6. HTN - Continue Nebivolol. 7. Chronic Diastolic CHF - Continue BB. Lasix resumed. 8. HLD - Continue Statin/Zetia. DVT Px - Heparin SQ
[2019-11-02] MEDS: AMINO ACIDS/PROTEIN HYDROLYS 30 ML LIQUID.PKT PO SCH (18:11)
[2019-11-02] MEDS: NEBIVOLOL 2.5 MG TABLET (FP) PO SCH (23:13)
[2019-11-02] MEDS: ATORVASTATIN CA 80 MG TABLET (FP) PO SCH (23:13)
[2019-11-02] MEDS: EZETIMIBE 10 MG TABLET (FP) PO SCH (23:13)
[2019-11-03] MEDS: HEPARIN NA (PORCINE) 5,000 UNITS/ML 1ML VIAL SQ SCH ×3 (02:05→18:25)
[2019-11-03] MEDS: INSULIN SLIDING SCALE (NOVOLOG) 1 VIAL SQ SCH ×4 (06:07→23:02)
[2019-11-03] MEDS: INSULIN (LEVEMIR) 100 UNITS/ML UNITS SQ SCH (06:07)
[2019-11-03 08:04] LABS: HEMATOCRIT 32.9 % (35.4-49); MCH 27.8 pg (25.7-33.7); MCHC 33.3 g/dl (32.0-35.9); MEAN CELL VOLUME 83.5 fl (80-96); MEAN PLT VOLUME 9.1 fl (7.5-11.1); PLATELET COUNT 182 K/MM3 (134-434); RBC 3.94 M/mm3 (4.00-5.60); RDW 15.3 % (11.9-15.9); WHITE BLOOD COUNT 10.4 K/mm3 (4.0-10.0)
[2019-11-03 08:47] LABS: ALBUMIN 2.5 g/dl (3.4-5.0); BILIRUBIN,TOTAL 0.4 mg/dL (0.2-1); BLOOD UREA NITROGEN 22.7 mg/dL (7-18); CALCIUM 8.9 mg/dL (8.5-10.1); CREATININE 1.2 mg/dL (0.55-1.3); MAGNESIUM 2.3 mg/dL (1.8-2.4); PHOSPHOROUS 3.3 mg/dL (2.5-4.9); POTASSIUM 3.9 mmol/L (3.5-5.1); TOT PROT 6.6 g/dl (6.4-8.2)
[2019-11-03] MEDS ORDERED: cefTRIAXone SODIUM 1 GM VIAL ONE (09:32)
[2019-11-03] MEDS ORDERED: DEXTROSE 5%-WATER - 50 ML IVPB ONE (09:32)
[2019-11-03] MEDS: AMINO ACIDS/PROTEIN HYDROLYS 30 ML LIQUID.PKT PO SCH ×2 (10:00→18:27)
[2019-11-03 10:03] VITALS: BMI 23.0
[2019-11-03] MEDS: CEFTRIAXONE 1 GM in DEXTROSE 5%-WATER - 50 ML IVPB SCH (10:19)
[2019-11-03] MEDS: FUROSEMIDE 40 MG TABLET (FP) PO SCH (10:20)
[2019-11-03] MEDS: ACETAMINOPHEN 325 MG TABLET (FP) PO PRN (10:22)
[2019-11-03] MEDS ORDERED: INSULIN (NOVOLOG) ASPART 100 UNITS/ML 10ML VIAL SQ STA (14:51)
[2019-11-03] MEDS: NYSTATIN POWDER 100,000 UNITS/GM - 15 GM TOPICAL POWDER TP SCH ×2 (15:16→23:03)
--- NOTE | 2019-11-03 19:41 | PN ---
Progress Note (short form) - Note Progress Note: SUBJECTIVE: Cognitively impaired, Unable to provide history. OBJECTIVE: Afebrile, Hemodynamically Stable. Appears comfortable. Arguello draining clear urine. Last Vital Signs Temp Pulse Resp BP Pulse Ox 99.3 F 72 20 110/62 98 11/03/19 14:00 11/03/19 14:00 11/03/19 14:00 11/03/19 14:00 11/03/19 09:00 Heart - S1, S2, RRR Lungs - good air entry bilaterally Abdomen - Soft, non-tender. Extremities - chronic venous stasis skin changes LEs. Trace edema, Neuro - Disoriented. Moving all extremities. No focal weakness. - Arguello in situ, fungal rash in groin and scrotum with some excoriation of scrotal skin on R, no evidence of cellulitis. Laboratory Results - last 24 hr 11/03/19 11/03/19 11/03/19 06:06 07:07 07:07 WBC 10.4 H RBC 3.94 L Hgb 11.0 L Hct 32.9 L MCV 83.5 MCH 27.8 MCHC 33.3 RDW 15.3 Plt Count 182 MPV 9.1 Sodium 143 Potassium 3.9 Chloride 109 H Carbon Dioxide 25 Anion Gap 8 BUN 22.7 H Creatinine 1.2 Est GFR (CKD-EPI)AfAm 66.26 Est GFR (CKD-EPI)NonAf 57.17 POC Glucometer 355 Random Glucose 342 H Calcium 8.9 Phosphorus 3.3 Magnesium 2.3 Total Bilirubin 0.4 AST 16 ALT 19 Alkaline Phosphatase 106 Total Protein 6.6 Albumin 2.5 L Vitamin B12 TSH 0.97 RPR Titer 11/03/19 11/03/19 11/03/19 07:07 07:07 12:14 WBC RBC Hgb Hct MCV MCH MCHC RDW Plt Count MPV Sodium Potassium Chloride Carbon Dioxide Anion Gap BUN Creatinine Est GFR (CKD-EPI)AfAm Est GFR (CKD-EPI)NonAf POC Glucometer > 600 Random Glucose Calcium Phosphorus Magnesium Total Bilirubin AST ALT Alkaline Phosphatase Total Protein Albumin Vitamin B12 606 TSH RPR Titer Nonreactive 11/03/19 11/03/19 14:41 17:08 WBC RBC Hgb Hct MCV MCH MCHC RDW Plt Count MPV Sodium Potassium Chloride Carbon Dioxide Anion Gap BUN Creatinine Est GFR (CKD-EPI)AfAm Est GFR (CKD-EPI)NonAf POC Glucometer 583 582 Random Glucose Calcium Phosphorus Magnesium Total Bilirubin AST ALT Alkaline Phosphatase Total Protein Albumin Vitamin B12 TSH RPR Titer Current Medications Generic Name Dose Route Start Last Admin Trade Name Freq PRN Reason Stop Dose Admin Acetaminophen 650 mg 11/03/19 09:23 11/03/19 10:22 Tylenol - PO 650 mg Q6H PRN Administration PAIN 1-3 Albuterol Sulfate 2 puff 11/01/19 14:14 Ventolin Hfa Inhaler - IH Q4H PRN WHEEZING Amino Acids 30 ml 11/02/19 17:30 11/03/19 18:27 Prosource No Carb Liquid Pkt PO Not Given BID@0800,1730 DAISHA Atorvastatin Calcium 80 mg 11/01/19 22:00 11/02/19 23:13 Lipitor - PO 80 mg HS DAISHA Administration Ezetimibe 10 mg 11/01/19 22:00 11/02/19 23:13 Zetia - PO 10 mg HS DAISAH Administration Furosemide 40 mg 11/02/19 10:45 11/03/19 10:20 Lasix - PO 40 mg DAILY DAISHA Administration Heparin Sodium (Porcine) 5,000 unit 11/01/19 18:00 11/03/19 18:25 Heparin - SQ 5,000 unit Q8H-IV DAISHA Administration Ceftriaxone Sodium 1 gm/ 50 mls @ 100 mls/hr 11/01/19 10:00 11/03/19 10:19 Dextrose IVPB 100 mls/hr DAILY DAISHA Administration Insulin Aspart 1 vial 11/03/19 22:00 Novolog Vial Sliding Scale - SQ ACHS [facility] Protocol Insulin Detemir 24 units 11/02/19 07:00 11/03/19 06:07 Levemir Vial SQ 24 units AM DAISHA Administration Nebivolol 2.5 mg 11/01/19 22:00 11/02/19 23:13 Bystolic - PO 2.5 mg HS DAISHA Administration Nystatin 1 applic 11/03/19 15:00 11/03/19 15:16 Nystop Powder - TP 1 applic TID DAISHA Administration Polyethylene Glycol 17 gm 11/01/19 14:14 Miralax (For Daily Use) - PO DAILY PRN CONSTIPATION Home Medications Medication Instructions Recorded Atorvastatin Ca [Lipitor] 80 mg PO DAILY 05/06/19 Ezetimibe 10 mg PO HS 05/06/19 Nebivolol HCl [Bystolic] 2.5 mg PO HS 05/06/19 Insulin Sliding Scale [Novolog 1 vial SQ ACHS units 09/06/19 Vial Sliding Scale -] Insulin (Levemir) [Levemir Vial] 22 units SQ DAILY 10/04/19 Ferrous Sulfate [Feosol] 325 mg PO DAILY ud 10/10/19 Polyethylene Glycol 3350 [Miralax 17 gm PO DAILY PRN bottle 10/10/19 119 gm Btl -] Albuterol Sulfate Inhaler - 2 inh PO Q4H PRN 10/31/19 [Ventolin Hfa Inhaler -] Ipratropium 0.02% Nebulizer 1 amp NEB Q6H PRN 10/31/19 [Atrovent 0.02% Nebulizer -] Clopidogrel Bisulfate [Plavix] 75 mg PO DAILY 11/01/19 Furosemide [Lasix -] 80 mg PO DAILY 11/01/19 ASSESSMENT AND PLAN: 79 year old male with Dementia, DM 2, HTN, HLD, CAD s/p CABG, Chronic Diastolic CHF, CKD 3, 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 1. Complicated UTI, catheter associated (Hx Bladder Outlet obstruction s/p indwelling arguello). Urine Cx pos for Enterobacter > 100,000 CFU/ml, Arguello exchanged in ED. Afebrile, Hemodynamically Stable. Leukocytosis improving. Continue Ceftriaxone and discontinue Linezolid (given empirically for Hx MRSA UTI). 2. KIKI on CKD 3 - resolved, Creat back to baseline CT A/P on prior visit - several RIGHT renal 1-3 mm non-obstructive calculi; RIGHT renal cysts. Renal US - no obstruction, medical renal disease Lasix resumed and IV hydration held. 3. Hyperglycemia, very high today. Background uncontrolled DM 2 (A1C 9.5) - Insulin Levemir (increase to 26 units daily) and Novolog as per sliding scale. Will increase tier of novolog sliding scale. 4. Acute Metabolic Encephalopathy sec to UTI on background Dementia CT Brain shows volume loss and ventricular dilatation, suggestive of NPH. Neurology consulted - suggest possible Alzheimer's, B12/TSH levels normal, RPR non-reactive. ST recommends Dysphagia pureed diet. 5. Hypoalbuminemia sec to malnutrition Dietary consulted for nutrition recommendations. 6. HTN - Continue Nebivolol. 7. Chronic Diastolic CHF - Continue BB. Lasix resumed. 8. HLD - Continue Statin/Zetia. 9. Fungal Rash in groin with skin excoriation R inguinal fold/scrotal junction, no cellulitis. Nystatin powder TID. DVT Px - Heparin SQ Visit type - Emergency Visit Emergency Visit: Yes ED Registration Date: 10/31/19 Care time: The patient presented to the Emergency Department on the above date and was hospitalized for further evaluation of their emergent condition. - New Patient This patient is new to me today: No - Critical Care Critical Care patient: No - Discharge Referral Referred to [facility] No
[2019-11-03] MEDS ORDERED: INSULIN (NOVOLOG) ASPART 100 UNITS/ML 10ML VIAL SQ ONE (19:59)
[2019-11-03] MEDS ORDERED: INSULIN SLIDING SCALE (NOVOLOG) 1 VIAL SQ SCH ×2 (22:00)
[2019-11-03] MEDS: NEBIVOLOL 2.5 MG TABLET (FP) PO SCH (23:02)
[2019-11-03] MEDS: ATORVASTATIN CA 80 MG TABLET (FP) PO SCH (23:02)
[2019-11-03] MEDS: EZETIMIBE 10 MG TABLET (FP) PO SCH (23:03)
[2019-11-04] MEDS: HEPARIN NA (PORCINE) 5,000 UNITS/ML 1ML VIAL SQ SCH ×3 (02:45→17:49)
[2019-11-04] MEDS: INSULIN SLIDING SCALE (NOVOLOG) 1 VIAL SQ SCH ×4 (06:29→22:04)
[2019-11-04] MEDS: INSULIN (LEVEMIR) 100 UNITS/ML UNITS SQ SCH (06:29)
[2019-11-04] MEDS: NYSTATIN POWDER 100,000 UNITS/GM - 15 GM TOPICAL POWDER TP SCH ×3 (06:34→22:05)
[2019-11-04] MEDS: AMINO ACIDS/PROTEIN HYDROLYS 30 ML LIQUID.PKT PO SCH ×2 (09:02→17:51)
[2019-11-04] MEDS ORDERED: cefTRIAXone SODIUM 1 GM VIAL ONE (09:58)
[2019-11-04] MEDS ORDERED: DEXTROSE 5%-WATER - 50 ML IVPB ONE (09:58)
[2019-11-04] MEDS: ACETAMINOPHEN 325 MG TABLET (FP) PO PRN (10:05)
[2019-11-04] MEDS: CEFTRIAXONE 1 GM in DEXTROSE 5%-WATER - 50 ML IVPB SCH (10:06)
[2019-11-04] MEDS: FUROSEMIDE 40 MG TABLET (FP) PO SCH (10:06)
[2019-11-04 10:21] LABS: BLOOD UREA NITROGEN 27.4 mg/dL (7-18); CALCIUM 9.5 mg/dL (8.5-10.1); CREATININE 1.2 mg/dL (0.55-1.3); POTASSIUM 4.1 mmol/L (3.5-5.1)
[2019-11-04] MEDS ORDERED: INSULIN (NOVOLOG) ASPART 100 UNITS/ML 10ML VIAL ONE ×2 (11:15→18:33)
--- NOTE | 2019-11-04 15:14 | PN ---
Teaching Attending Note Name of Resident: Stevie Dyer ATTENDING PHYSICIAN STATEMENT I saw and evaluated the patient. I reviewed the resident's note and discussed the case with the resident. I agree with the resident's findings and plan as documented with exceptions below. SUBJECTIVE: patient seen and examined, asking for water, oriented to self, no complaints. OBJECTIVE: Vital Signs Period Temp Pulse Resp BP Sys/Poole Pulse Ox Last 24 Hr 97.5 F-98.5 F 66-69 20-20 132-148/61-67 97 Intake & Output 11/01/19 11/02/19 11/03/19 11/04/19 23:59 23:59 23:59 23:59 Intake Total 1300 50 100 Output Total 1100 2250 2650 400 Balance -1100 -950 -2600 -300 Weight 147 lb General: lying in bed, no acute distress HEENT: mildly dry skin and mucous membrane Abdomen:Soft, Nt, no suprapubic tenderness Extremities; no edema Home Medications Medication Instructions Recorded Atorvastatin Ca [Lipitor] 80 mg PO DAILY 05/06/19 Ezetimibe 10 mg PO HS 05/06/19 Nebivolol HCl [Bystolic] 2.5 mg PO HS 05/06/19 Insulin Sliding Scale [Novolog 1 vial SQ ACHS units 09/06/19 Vial Sliding Scale -] Insulin (Levemir) [Levemir Vial] 22 units SQ DAILY 10/04/19 Ferrous Sulfate [Feosol] 325 mg PO DAILY ud 10/10/19 Polyethylene Glycol 3350 [Miralax 17 gm PO DAILY PRN bottle 10/10/19 119 gm Btl -] Albuterol Sulfate Inhaler - 2 inh PO Q4H PRN 10/31/19 [Ventolin HFA Inhaler -] Ipratropium 0.02% Nebulizer 1 amp NEB Q6H PRN 10/31/19 [Atrovent 0.02% Nebulizer -] Clopidogrel Bisulfate [Plavix] 75 mg PO DAILY 11/01/19 Cefpodoxime Proxetil [Vantin (Nf) 100 mg PO BID #20 tablet 11/04/19 -] Furosemide [Lasix] 40 mg PO DAILY 11/04/19 Laboratory Results - last 24 hr 11/03/19 11/03/19 11/03/19 17:08 20:21 23:00 Sodium Potassium Chloride Carbon Dioxide Anion Gap BUN Creatinine Est GFR (CKD-EPI)AfAm Est GFR (CKD-EPI)NonAf POC Glucometer 582 282 143 Random Glucose Calcium 11/04/19 11/04/19 11/04/19 06:28 09:35 11:32 Sodium 144 Potassium 4.1 Chloride 107 Carbon Dioxide 32 Anion Gap 5 L BUN 27.4 H Creatinine 1.2 Est GFR (CKD-EPI)AfAm 66.26 Est GFR (CKD-EPI)NonAf 57.17 POC Glucometer 264 370 Random Glucose 230 H Calcium 9.5 Microbiology 10/31/19 19:33 Blood - Peripheral Venous Blood Culture - Preliminary NO GROWTH OBTAINED AFTER 72 HOURS, INCUBATION TO CONTINUE FOR 2 DAYS. 10/31/19 19:00 Blood - Peripheral Venous Blood Culture - Preliminary NO GROWTH OBTAINED AFTER 72 HOURS, INCUBATION TO CONTINUE FOR 2 DAYS. 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 -complicated Enterobacter UTI -Bladder outlet obstruction s/p indwelling arguello -KIKI on CKD stage III, resolved -Poorly controlled IDDM, hyperglycemia -Acute metabolic encephalopathy, from above, improved -Dementia -Hypoalbuminemia -HTN -Chronic diastolic heart failure -HLD -Tinear cruris Plan: Improved, afebrile, normal WBC, arguello changed, cefpodoxime for 10 days Urology appt arranged for 11/15. Discussed with at bedside who administers insulin per son's instructions. Only gives sliding scale and not standing levemir Stressed need for standing levemir and sliding with close blood sugar checks with family Also need for close outpatient PCP and endocrine follow up. Neurology input noted, outpatient follow up. lasix/nebivolol/statin/zetia dc home with outpatient BGM monitoring and urology follow up as above Discussed with at bedside, all questions answered.
--- NOTE | 2019-11-04 15:26 | CONSULT ---
Admitting History and Physical - Primary Care Physician PCP: Amber Robins - Admission History of Present Illness: 79 yo [place] resident with h/o HTN, Chol, Diabetes, blindness due to retinopathy and advanced dementia admitted with lethargy and UTI Neurology IMP: Severe, B/L cerebral dysfunction (OMS/Chronic). Most likely Alzheimer's disease. Toxic-metabolic Encephalopathy (UTI/Urosepsis) Selected Entries 11/02/19 11/02/19 11/02/19 10:00 14:00 18:00 Breakfast 75% 75% Lunch 75% Supper 75% Temperature 11/03/19 11/03/19 11/03/19 02:04 10:00 14:00 Breakfast Lunch Supper Temperature 97.6 F 98.3 F 99.3 F 11/03/19 11/03/19 11/03/19 15:00 21:18 23:04 Breakfast 75% Lunch 75% Supper Temperature 97.8 F 97.5 F L 11/04/19 11/04/19 06:58 09:25 Breakfast Lunch Supper Temperature 98.5 F 98.5 F Laboratory Tests 10/31/19 11/01/19 11/02/19 18:20 06:20 08:01 WBC 15.3 H 13.5 H 12.0 H 11/03/19 07:07 WBC 10.4 H At present, pt is on puree/nectar. Doing well with good appetite. Last seen by me 09/23/19, tolerated puree and thin liquids. History Source: Medical Record Limitations to Obtaining History: Clinical Condition, Dementia - Past Medical History [employer]: Yes: Dementia Cardiovascular: Yes: CAD, HTN, Hyperlipdemia Pulmonary: Yes: Asthma, COPD, Pneumonia. No: Cancer, O2 Dependent, Previously Intubated, Pulmonary Embolus, Pulmonary Fibrosis, Sleep Apnea Renal/: Yes: Renal Inusuff - Past Surgical History Past Surgical History: Yes: CABG, Joint Replacement (R hip ORIF) - Smoking History Smoking history: Unknown if ever smoked Have you smoked in the past 12 months: No Aproximately how many cigarettes per day: 0 If you are a former smoker, when did you quit?: '96 - Alcohol/Substance Use Hx Alcohol Use: No - Social History ADL: Family Assistance History of Recent Travel: No History - Admission Reason For Visit: ACUTE KIDNEY INJURY/UTI/HYPERGLYCEMIA - Diagnostics CT Scan: Report Reviewed ( CT of head (reviewed): Severe, diffuse, atrophy and ex vacuo hydrocephalus.) - General Mental Status: Confused, Lethargic Attention: Moderate Impairment Ability to Follow Directions: Poor - Hearing Hearing: Normal Hearing Aide: No With Patient: No Speech Evaluation - Communication Primary Language: CH[place] Communication: Yes: Non-Communicable (for me but lethargic. Reported to speak, slowly, o x 1) Oral Expression Ability: Yes: Non-Verbal - Speech Characteristics Voice Phonatory-based Quality: Yes: Dysphonia Articulation: Yes: Imprecise - Language/Auditory Comprehension Observation: Comprehends Conversational Speech: Yes (limited. simple) - Swallow Evaluation/Bedside Assessment Current Nutritional Intake: Dysphagia Pureed, [place] Textured Liquids Oral Secretions: Yes: Drooling (lethargic) Labial Seal: Impaired Bilaterally A-P Transit: Impaired Timing of Swallow: Delayed Coughing/Throat Clear: Yes (thin) Recommendations - Speech Evaluation, Impression/Plan Impression: Lethargy with delayed swallow and throat clearing. Will reassess when more alert - Dysphagia Impressions/Plan Swallowing Skills: Impaired Dysphagia Impressions: Suspect Aspiration (but assessed when pretty lethargic with limited participation) *Silent aspiration: cannot be R/O at bedside Dysphagia Treatment Plan: Small Bites, Chin Tuck/Down, Clear Pocket Food, Safe Rate, 1/2 tsp. at a time, Elevate HOB during feed - Recommendations Diet Consistency: Dysphagia Pureed Medication Administration: Crushed with applesauce Liquids: [place] Thick, Other (to reassess) Supplement: Magic Cup, Ensure Pudding
--- NOTE | 2019-11-04 18:10 | PN ---
Physical Exam: SUBJECTIVE: Patient seen and examined at the bedside. Patient confused at baseline but is able to follow commands and answer yes/no to basic requests. Denied cp, sob, abd pain, n/v. OBJECTIVE: Vital Signs Period Temp Pulse Resp BP Sys/Poole Pulse Ox Last 24 Hr 97.5 F-98.5 F 66-69 20-20 132-148/61-67 94-97 GENERAL: AOx1 to person, speaks Malayalam HEAD: Normocephalic and atraumatic EYES: BL diabetic keratopahy, opaque cornea R>L ENT: Oropharynx clear without exudates. Moist mucous membranes. NECK: No lymphadenopathy, JVD. LUNGS: Bilaterally clear to auscultation. No auscultated wheezes and no crackles. No accessory muscle use. HEART: Regular rate and rhythm, no murmurs, rubs appreciated. ABDOMEN: Non-tender, no guarding, soft, BS present in all 4 quadrants, non- distended UPPER EXTREMITIES: Moves arms spontaneously. 2+ pulses, warm, well-perfused. No cyanosis. No clubbing. No peripheral edema. LOWER EXTREMITIES: 2+ pulses, warm, well-perfused. No calf tenderness. Trace peripheral edema in feet. Dry. NEUROLOGICAL: Dysarthria. LUE 4/5 power. Unable to comply with rest of neurological exam SKIN: Dry. Diffuse excorations on chest L>R. Vertical sternal scar. Chronic venous stasis dermatitis on bilateral leg. Laboratory Results - last 24 hr 11/03/19 11/03/19 11/04/19 20:21 23:00 06:28 Sodium Potassium Chloride Carbon Dioxide Anion Gap BUN Creatinine Est GFR (CKD-EPI)AfAm Est GFR (CKD-EPI)NonAf POC Glucometer 282 143 264 Random Glucose Calcium 11/04/19 11/04/19 11/04/19 09:35 11:32 16:16 Sodium 144 Potassium 4.1 Chloride 107 Carbon Dioxide 32 Anion Gap 5 L BUN 27.4 H Creatinine 1.2 Est GFR (CKD-EPI)AfAm 66.26 Est GFR (CKD-EPI)NonAf 57.17 POC Glucometer 370 529 Random Glucose 230 H Calcium 9.5 Active Medications Generic Name Dose Route Start Last Admin Trade Name Freq PRN Reason Stop Dose Admin Acetaminophen 650 mg 11/03/19 09:23 11/04/19 10:05 Tylenol - PO 650 mg Q6H PRN Administration PAIN 1-3 Albuterol Sulfate 2 puff 11/01/19 14:14 Ventolin Hfa Inhaler - IH Q4H PRN WHEEZING Amino Acids 30 ml 11/02/19 17:30 11/04/19 17:51 Prosource No Carb Liquid Pkt PO Not Given BID@0800,1730 DAISHA Atorvastatin Calcium 80 mg 11/01/19 22:00 11/03/19 23:02 Lipitor - PO 80 mg HS DAISHA Administration Ezetimibe 10 mg 11/01/19 22:00 11/03/19 23:03 Zetia - PO 10 mg HS DAISHA Administration Furosemide 40 mg 11/02/19 10:45 11/04/19 10:06 Lasix - PO 40 mg DAILY DAISHA Administration Heparin Sodium (Porcine) 5,000 unit 11/01/19 18:00 11/04/19 17:49 Heparin - SQ 5,000 unit Q8H-IV DAISHA Administration Ceftriaxone Sodium 1 gm/ 50 mls @ 100 mls/hr 11/01/19 10:00 11/04/19 10:06 Dextrose IVPB 100 mls/hr DAILY DAISHA Administration Insulin Aspart 1 vial 11/03/19 22:00 11/04/19 16:59 Novolog Vial Sliding Scale - SQ 14 units ACHS DAISHA Administration Protocol Insulin Detemir 26 units 11/04/19 07:00 11/04/19 06:29 Levemir Vial SQ 26 units AM DAISHA Administration Nebivolol 2.5 mg 11/01/19 22:00 11/03/19 23:02 Bystolic - PO 2.5 mg HS DAISHA Administration Nystatin 1 applic 11/03/19 15:00 11/04/19 14:17 Nystop Powder - TP 1 applic TID DAISHA Administration Polyethylene Glycol 17 gm 11/01/19 14:14 Miralax (For Daily Use) - PO DAILY PRN CONSTIPATION ASSESSMENT/PLAN: Jerel Adame is a 79 year old male with a past medical history of IDDM, HTN , HLD, CAD, CKD 3B, BL blindness, bph, chronic bladder outlet obstruction, and dementia c/o abdominal pain. UA and clinical presentation consistent with UTI. Altered mental status, likely in setting of UTI - Ceftriaxone 1 g IV QD will be transitioned to Vantin for 10 days until the 20th - linezolid d/c (originally ordered due to hx of MRSA in urine) - leukocytosis trending down since admission - Maintain Arguello, will be seen by Dr. Yamila Morris on Nov 15 at 2:30PM - UA + for nitrites, 2+ LE, 268 WBC, 1895 bacteria - UCx growing Enterobacter Aerogenes with multiple sensitivities - recent slurred speech as noted by family, head CT negative for acute pathology , + for NPH - Neurology, Dr. Michel consulted, recs appreciated - Physical therapy, posturing in flexion, unable to comply, will be going home with care by family - TSH, B12, RPR all negative KIKI on CKD 3b - CRE 1.5 on admission, currently 1.2 (baseline - Arguello placement given obstructive BPH, not chronic arguello - Maintain Arguello, will need to f/u with urology for arguello care, appt with Dr. Yamila Morris on Nov 15 at 2:30PM - home Lasix, monitor volume status - BP within normal limits - careful with fluids in setting of patient's hx of grade I diastolic dysfunction and LVH - Renal U/S noting R kidney is normal, cannot evaluate L kidney due to patient non-cooperation Elevated alk phos - No cholecystitis on prev CT - unknown origin, trending down, no evidence of liver/gallbladder pathology, continue to monitor Hypoalbuminemia - Possibly d/t proteinuria, malnutrition, and inflammation assoc. with comorbid chronic conditions - Ensure adequate dietary protein intake - Consult division chief DM - Home Levemir increased to 26 units - ISS ACHS - BGM - A1c 9.5 - will require good outpatient follow up, stressed importance of insulin administration HTN - Cont. curent home regimen HLD - Cont. curent home regimen Hx of CAD - holding Plavix due to family request as patient previously had hematuria - watch for hematria while patient on heparin F/E/N - no standing fluids - Continue to monitor electrolytes and replete as necessary - Diabetic puree diet DVT prophylaxis - Heparin 5000 units Subq tid Disposition - Continue to monitor on med/surg - rell Garces for any updates on patient Visit type - Emergency Visit Emergency Visit: Yes ED Registration Date: 10/31/19 Care time: The patient presented to the Emergency Department on the above date and was hospitalized for further evaluation of their emergent condition. - New Patient This patient is new to me today: No - Critical Care Critical Care patient: No
[2019-11-04] MEDS: EZETIMIBE 10 MG TABLET (FP) PO SCH (22:05)
[2019-11-04] MEDS: NEBIVOLOL 2.5 MG TABLET (FP) PO SCH (22:05)
[2019-11-04] MEDS: ATORVASTATIN CA 80 MG TABLET (FP) PO SCH (22:05)
[2019-11-05] MEDS: HEPARIN NA (PORCINE) 5,000 UNITS/ML 1ML VIAL SQ SCH ×2 (01:35→10:22)
[2019-11-05] MEDS: INSULIN (LEVEMIR) 100 UNITS/ML UNITS SQ SCH (06:55)
[2019-11-05] MEDS: NYSTATIN POWDER 100,000 UNITS/GM - 15 GM TOPICAL POWDER TP SCH (06:55)
[2019-11-05] MEDS: INSULIN SLIDING SCALE (NOVOLOG) 1 VIAL SQ SCH ×2 (06:56→11:49)
[2019-11-05] MEDS: AMINO ACIDS/PROTEIN HYDROLYS 30 ML LIQUID.PKT PO SCH (08:41)
[2019-11-05] MEDS ORDERED: INSULIN (LEVEMIR) 100 UNITS/ML UNITS SQ SCH (08:54)
[2019-11-05] MEDS ORDERED: PT OWN MED DRAWER 7, Y5N ONE (09:12)
[2019-11-05] MEDS ORDERED: CEFPODOXIME PROXETIL 100 MG TABLET PO SCH (10:00)
[2019-11-05] MEDS: FUROSEMIDE 40 MG TABLET (FP) PO SCH (10:22)
[2019-11-05] MEDS: ACETAMINOPHEN 325 MG TABLET (FP) PO PRN (10:23)
[2019-11-05 12:03] VITALS: BP 138/57; PULSE 70; TEMP 97
--- NOTE | 2019-11-05 15:00 | PN ---
Teaching Attending Note Name of Resident: Stevie Dyer ATTENDING PHYSICIAN STATEMENT I saw and evaluated the patient. I reviewed the resident's note and discussed the case with the resident. I agree with the resident's findings and plan as documented with exceptions below. SUBJECTIVE: patient seen and examined. asking for water, no complaints. OBJECTIVE: Vital Signs Period Temp Pulse Resp BP Sys/Poole Pulse Ox Last 24 Hr 97.0 F-98.9 F 67-70 20-20 114-140/43-58 97-99 Intake & Output 11/02/19 11/03/19 11/04/19 11/05/19 23:59 23:59 23:59 23:59 Intake Total 1300 50 225 125 Output Total 2250 2650 5784 453 Balance -425 -7349 -6110 -793 Weight 147 lb General: lying in bed, more awake Chest: decreased effort, no rales or wheezing Abdomen:soft, obese, NT Extremities: no edema Home Medications Medication Instructions Recorded Atorvastatin Ca [Lipitor] 80 mg PO DAILY 05/06/19 Ezetimibe 10 mg PO HS 05/06/19 Nebivolol HCl [Bystolic] 2.5 mg PO HS 05/06/19 Insulin Sliding Scale [Novolog 1 vial SQ ACHS units 09/06/19 Vial Sliding Scale -] Ferrous Sulfate [Feosol] 325 mg PO DAILY ud 10/10/19 Polyethylene Glycol 3350 [Miralax 17 gm PO DAILY PRN bottle 10/10/19 119 gm Btl -] Albuterol Sulfate Inhaler - 2 inh PO Q4H PRN 10/31/19 [Ventolin HFA Inhaler -] Ipratropium 0.02% Nebulizer 1 amp NEB Q6H PRN 10/31/19 [Atrovent 0.02% Nebulizer -] Clopidogrel Bisulfate [Plavix] 75 mg PO DAILY 11/01/19 Cefpodoxime Proxetil [Vantin (Nf) 100 mg PO BID #20 tablet 11/04/19 -] Furosemide [Lasix] 40 mg PO DAILY 11/04/19 Insulin (Levemir) [Levemir Vial] 30 units SQ AM units 11/05/19 Insulin (Levemir) [Levemir Vial] 30 units SQ DAILY #1 vial 11/05/19 Nystatin Powder [Nystop Powder -] 1 applic TP TID #15 grams 11/05/19 Laboratory Results - last 24 hr 11/04/19 11/04/19 11/05/19 16:16 21:08 06:15 POC Glucometer 529 367 224 11/05/19 11:43 POC Glucometer 377 ASSESSMENT AND PLAN: 79 year old male with Dementia, DM 2, HTN, HLD, CAD s/p CABG, Chronic Diastolic CHF, CKD 3, 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 -complicated Enterobacter UTI -Bladder outlet obstruction s/p indwelling arguello -KIKI on CKD stage III, resolved -Poorly controlled IDDM, hyperglycemia -Acute metabolic encephalopathy, from above, improved -Dementia -Hypoalbuminemia -HTN -Chronic diastolic heart failure -HLD -Tinear cruris Plan: Improved, afebrile, normal WBC, arguello changed, cefpodoxime for 10 days Urology appt arranged for 11/15. Discussed with at bedside who administers insulin per son's instructions. Only gives sliding scale and not standing levemir Stressed need for standing levemir and sliding with close blood sugar checks with family Increase levemir to 30 units daily. Also need for close outpatient PCP and endocrine follow up. Neurology input noted, outpatient follow up. lasix/nebivolol/statin/zetia dc home with outpatient BGM monitoring and urology follow up as above Discussed with at bedside, all questions answered.
--- NOTE | 2019-11-05 15:58 | DS ---
Physical Exam: SUBJECTIVE: Patient seen and examined at the bedside. Patient is alert and oriented to self and that this is not his home. States he is thirsty and wants to drink. Denies acute cp, sob, abd pain, n/v/c/d, fevers. OBJECTIVE: Vital Signs Period Temp Pulse Resp BP Sys/Poole Pulse Ox Last 24 Hr 97.0 F-98.9 F 67-70 20-20 114-140/43-58 97-99 PHYSICAL EXAM GENERAL: AOx1 to person, speaks Malayalam HEAD: Normocephalic and atraumatic EYES: BL diabetic keratopahy, opaque cornea R>L ENT: Oropharynx clear without exudates. Moist mucous membranes. NECK: No lymphadenopathy, JVD. LUNGS: Bilaterally clear to auscultation. No auscultated wheezes and no crackles. No accessory muscle use. HEART: Regular rate and rhythm, no murmurs, rubs appreciated. ABDOMEN: Non-tender, no guarding, soft, BS present in all 4 quadrants, non- distended UPPER EXTREMITIES: Moves arms spontaneously. 2+ pulses, warm, well-perfused. No cyanosis. No clubbing. No peripheral edema. LOWER EXTREMITIES: 2+ pulses, warm, well-perfused. No calf tenderness. Trace peripheral edema in feet. Dry. NEUROLOGICAL: Dysarthria. LUE 4/5 power. Unable to comply with rest of neurological exam SKIN: Dry. Diffuse excorations on chest L>R. Vertical sternal scar. Chronic venous stasis dermatitis on bilateral leg. LABS Laboratory Results - last 24 hr 11/04/19 11/04/19 11/05/19 16:16 21:08 06:15 POC Glucometer 529 367 224 11/05/19 11:43 POC Glucometer 377 HOSPITAL COURSE: Jerel Adame is a 79 year old male with a past medical history of IDDM, HTN , HLD, CAD, CKD 3B, BL blindness, bph, chronic bladder outlet obstruction, and dementia admitted for altered mental status in the setting UTI. Patient was started on ceftriaxone and linezolid because of history of MRSA in the urine. Urine cultures showed that patient had Enterobacter Aerogenes with multiple sensitivities and had linezolid discontinued and was switched from ceftriaxone to Vantin and will complete a course of outpatient antibiotics. Due to decreased mental status, patient had a head CT which was negative for any acute pathology and showed NPH. Neurology was consulted and recommended to continue UTI treatment. Patient will follow up with neurology outpatient. Patient had arguello replaced in the ED and will need to follow up for arguello catheter care with Dr. Morris. Appointment was made for the patient. During admission, patient had elevated glucose and had Levemir increased to 30 units daily in the morning with sliding scale. Patient will need adequate outpatient follow up for diabetes. Patient will need to follow up with his primary care physician and ui developer with [employer]. Patient's son Dez was told about the plan at discharge, was in agreement, and reiterated the plan. Patient was discharged in stable medical condition. Date of Admission:10/31/19 Date of Discharge: 11/05/19 Minutes to complete discharge: 35 Discharge Summary Problems reviewed: Yes Reason For Visit: ACUTE KIDNEY INJURY/UTI/HYPERGLYCEMIA Condition: Stable - Instructions Diet, Activity, Other Instructions: YOUR VISIT You came to the hospital because you were feeling You were admitted to the hospital for a urinary tract infection that was causing you to become more confused. You were treated with antibiotics and will complete a course of antibiotics when you leave the hospital. You had a ultrasound of your kidneys which showed a normal right kidney. You had a CT scan of your head which showed some enlargement of the ventricles (fluid filled spaced of the brain). You were seen by a neurologist, who recommended to continue antibiotics and ensure adequate hydration. You had elevated blood sugars while you were in the hospital and your Levemir dose was increased. MEDICATIONS START to take Vantin 100mg twice a day for an additional 10 days. Your last dose will be on November 15. INCREASE your Levemir dose to 30 units in the morning. Follow up with your ui developer with [employer]. Please check your blood sugars before all meals and continue with sliding scale as instructed by your doctor. Please continue to use nystatin powder three times a day and apply it to the groin area. Please continue to take your home medications as prescribed. ADDITIONAL CARE Please make an appointment to see your primary care provider, Dr. Souleymane Morris, 1 week from today. Please follow up with the neurologist, Dr. Malik Michel, within 1 week. Please follow up with your ui developer with [employer] within 1 week. If you do not have one , please follow up with Dr. Yoni Lynch. We have made an appointment to see your urologist Dr. Yamila Morris, on November 15 at 2:30PM. It is important to you follow up for proper care of your arguello catheter. ADDITIONAL INFORMATION Please make sure to go to your urologist appointment to ensure adequate care of the arguello catheter and for evaluation if the arguello catheter can be removed. Please ensure that you are checking the blood sugar at least 4 times a day, before meals and at bedtime, and administering an adequate amount of insulin to prevent high blood sugars. Follow up with your primary care doctor and ui developer with [employer] for any adjustments of insulin as necessary. Please call 911 or come directly to the emergency department if you experience unusual headache, vision change, shortness of breath, chest pain, numbness, tingling, loss of alertness/awareness, loss of function, unusual bleeding or any alarming symptoms. Referrals: Malik Michel MD [Staff Physician] - 1 Week Yoin Lynch MD [Staff Physician] - 1 Week Yamila Morris MD [Staff Physician] - 11/15/19 2:30 am Souleymane Morris MD [Primary Care Provider] - 1 Week Disposition: [facility]NS/HOME HEALTH CARE - Home Medications Comprehensive Discharge Medication List: Ambulatory Orders Atorvastatin Ca [Lipitor] 80 mg PO DAILY 05/06/19 Ezetimibe 10 mg PO HS 05/06/19 Nebivolol HCl [Bystolic] 2.5 mg PO HS 05/06/19 Insulin Sliding Scale [Novolog Vial Sliding Scale -] 1 vial SQ ACHS units 09/06 Ferrous Sulfate [Feosol] 325 mg PO DAILY ud 10/10/19 Polyethylene Glycol 3350 [Miralax 119 gm Btl -] 17 gm PO DAILY PRN bottle 10/10 Albuterol Sulfate Inhaler - [Ventolin HFA Inhaler -] 2 inh PO Q4H PRN 10/31/19 Ipratropium 0.02% Nebulizer [Atrovent 0.02% Nebulizer -] 1 amp NEB Q6H PRN 10/31 Clopidogrel Bisulfate [Plavix] 75 mg PO DAILY 11/01/19 Cefpodoxime Proxetil [Vantin (Nf) -] 100 mg PO BID #20 tablet 11/04/19 Furosemide [Lasix] 40 mg PO DAILY 11/04/19 Insulin (Levemir) [Levemir Vial] 30 units SQ AM units 11/05/19 Nystatin Powder [Nystop Powder -] 1 applic TP TID #15 grams 11/05/19 Problem List - Problems (1) Anemia Code(s): D64.9 - ANEMIA, UNSPECIFIED (2) Asthma Code(s): J45.909 - UNSPECIFIED ASTHMA, UNCOMPLICATED (3) CAD (coronary artery disease) Code(s): I25.10 - ATHSCL HEART DISEASE OF [place] CORONARY ARTERY W/O ANG PCTRS Qualifiers: Coronary Disease-Associated Artery/Lesion type: [place] artery [place] vs. transplanted heart: [place] heart Associated angina: without angina Qualified Code(s): I25.10 - Atherosclerotic heart disease of [place] coronary artery without angina pectoris (4) CKD stage 3 due to type 2 diabetes mellitus Code(s): E11.22 - TYPE 2 DIABETES MELLITUS W DIABETIC CHRONIC KIDNEY DISEASE; N18.3 - CHRONIC KIDNEY DISEASE, STAGE 3 (MODERATE) (5) COPD (chronic obstructive pulmonary disease) Code(s): J44.9 - CHRONIC OBSTRUCTIVE PULMONARY DISEASE, UNSPECIFIED (6) Chronic venous stasis Code(s): I87.8 - OTHER SPECIFIED DISORDERS OF VEINS (7) Dementia Code(s): F03.90 - UNSPECIFIED DEMENTIA WITHOUT BEHAVIORAL DISTURBANCE (8) Hyperglycemia Code(s): R73.9 - HYPERGLYCEMIA, UNSPECIFIED (9) Hyperlipidemia Code(s): E78.5 - HYPERLIPIDEMIA, UNSPECIFIED Qualifiers: Hyperlipidemia type: pure hypercholesterolemia Qualified Code(s): E78.00 - Pure hypercholesterolemia, unspecified; E78.0 - Pure hypercholesterolemia (10) Hypertension Code(s): I10 - ESSENTIAL (PRIMARY) HYPERTENSION Qualifiers: Hypertension type: essential hypertension Qualified Code(s): I10 - Essential (primary) hypertension (11) S/P CABG (coronary artery bypass graft) Code(s): Z95.1 - PRESENCE OF AORTOCORONARY BYPASS GRAFT (12) Type 2 diabetes mellitus Code(s): E11.9 - TYPE 2 DIABETES MELLITUS WITHOUT COMPLICATIONS (13) Urinary retention Code(s): R33.9 - RETENTION OF URINE, UNSPECIFIED (14) KIKI (acute kidney injury) Code(s): N17.9 - ACUTE KIDNEY FAILURE, UNSPECIFIED (15) Acute renal failure Code(s): N17.9 - ACUTE KIDNEY FAILURE, UNSPECIFIED This patient is new to me today: No Emergency Visit: Yes ED Registration Date: 10/31/19 Care time: The patient presented to the Emergency Department on the above date and was hospitalized for further evaluation of their emergent condition. Critical Care patient: No - Discharge Referral Referred to [facility] Med [facility] No
== END 2019-11-05 14:01 | disposition home health service (06) | DRG 698 ==
LOC: JER 16:12 → JERBED 21:03 → J5S 11-01 21:32
PROVIDERS: ADMIT Internal Medicine; ATTEND Hospitalist
DX: T83.518A Infection and inflammatory reaction due to other urinary catheter, initial encounter (principal); G93.41 Metabolic encephalopathy; N39.0 Urinary tract infection, site not specified; N17.9 Acute kidney failure, unspecified; E46 Unspecified protein-calorie malnutrition; G91.2 (Idiopathic) normal pressure hydrocephalus; I13.0 Hypertensive heart and chronic kidney disease with heart failure and stage 1 through stage 4 chronic kidney disease, or unspecified chronic kidney disease; I25.10 Atherosclerotic heart disease of native coronary artery without angina pectoris; E88.09 Other disorders of plasma-protein metabolism, not elsewhere classified; N32.0 Bladder-neck obstruction; Y83.9 Surgical procedure, unspecified as the cause of abnormal reaction of the patient, or of later complication, without mention of misadventure at the time of the procedure; N18.3 Chronic kidney disease, stage 3 (moderate); E11.65 Type 2 diabetes mellitus with hyperglycemia; Z95.1 Presence of aortocoronary bypass graft; B35.6 Tinea cruris; R41.82 Altered mental status, unspecified; B95.2 Enterococcus as the cause of diseases classified elsewhere; N40.0 Benign prostatic hyperplasia without lower urinary tract symptoms
CPT/HCPCS: 36415; 70450-TC; 71045-TC-FY; 76775-TC; 76856-TC; 80048; 80053; 81003; 82010; 82550; 82607; 82803; 82962; 83036; 83605; 83735; 84100; 84443; 84484; 85025; 85027; 86593; 87040; 87086; 87186; 93005; 93010; 97161-GP; 99285-25; J1644; J7030